=== PATIENT | male | born 1940 | race Caucasian/White ===

== ENCOUNTER 2024-02-16 12:09 | Outpatient (REF) | payer MEDICARE, SELFPAY ==
[2024-02-16 15:28] LABS: Occult Blood Negative
== END 2024-02-16 12:10 | disposition home or self-care (01) ==
LOC: LAB 12:09
PROVIDERS: PCP Nurse Practitioner Family; Visit Provider Nurse Practitioner Family
DX: R63.4 Abnormal weight loss (principal)
CPT/HCPCS: G0328

== ENCOUNTER 2024-02-17 07:45 | Outpatient (OUT) | payer MEDICARE, SELFPAY ==
[2024-02-17 08:38] LABS: Hematocrit 64.2 % (42.0-54.0); Hemoglobin 18.2 g/dL (14.0-18.0); Mean Corpuscular HGB Conc 28.3 g/dL (29.9-35.2); Mean Corpuscular Hemoglobin 22.3 pg (25.9-34.0); Mean Corpuscular Volume 78.8 fL (80.0-94.0); Mean Platelet Volume 9.9 fL (9.5-13.5); Red Blood Count 8.15 10^6/uL (4.70-6.10); Red Cell Distribution Width 24.7 % (11.0-15.0); White Blood Count 26.5 10^3/uL (4.0-11.0)
[2024-02-17 08:40] LABS: Estimated Average Glucose 100 mg/dL; Glycohemoglobin A1C 5.1 % (4.5-6.2)
[2024-02-17 08:53] LABS: Alanine Aminotransferase 25 U/L (16-63); Albumin Globulin Ratio 0.9; Albumin Level 3.6 g/dL (3.4-5.0); Alkaline Phosphatase 132 U/L (46-116); Anion Gap 13.6; Aspartate Amino Transferase 27 U/L (15-37); BUN Creatinine Ratio 17.3; Bilirubin Total 0.7 mg/dL (0.2-1.0); Calcium 10.1 mg/dL (8.5-10.1); Carbon Dioxide 28.7 mmol/L (21.0-32.0); Chloride 100 mmol/L (98-107); Chol HDL Ratio 2.9; Cholesterol 141 mg/dL (<=200); Estimated GFR (African America >60 (>=60); Estimated GFR (Non-African Ame 54 (>=60); Free T3 2.62 pg/mL (2.18-3.98); Globulin 3.9 g/dL; Glucose 91 mg/dL (74-106); HDL Cholesterol 49 mg/dL (40-60); Potassium 4.3 mmol/L (3.5-5.1); Sodium 138 mmol/L (136-145); Thyroid Stimulating Hormone 26.732 uIU/mL (0.358-3.740); Total Protein 7.5 g/dL (6.4-8.2); Triglycerides 75 mg/dL (<=150); Uric Acid 7.9 mg/dL (3.5-7.2)
[2024-02-17 09:12] LABS: Platelet Count 2085 10^3/uL (150-450)
[2024-02-17 09:45] LABS: Prostate Specific Antigen Scrn 4.62 ng/mL (<=4.00)
[2024-02-17 10:55] LABS: Lymphocytes Absolute Manual 1.06 10^3/uL (1.20-3.80); Monocytes Absolute Manual 2.38 10^3/uL (0.30-0.80); Segmented Neut Absolute Manual 22.52 10^3/uL (1.4-6.5)
[2024-02-17 10:56] LABS: Eosinophils Absolute Manual 0.53 10^3/uL (0.00-0.70)
[2024-02-17 11:04] LABS: Anisocytosis 2+; Giant Platelets 1+
[2024-02-18 04:12] LABS: PSA, Free 0.82 ng/mL; Prostate Specific Ag 3.9 ng/mL (0.0-4.0)
[2024-02-18 12:10] LABS: Insulin 3.2 uIU/mL (2.6-24.9)
== END 2024-02-17 07:46 | disposition home or self-care (01) ==
LOC: LAB 07:49
PROVIDERS: PCP Nurse Practitioner Family; Visit Provider Nurse Practitioner Family
DX: R63.4 Abnormal weight loss (principal); R97.20 Elevated prostate specific antigen [PSA]
CPT/HCPCS: 36415; 80053; 80061; 83036; 83525; 84153; 84154; 84436; 84443; 84481; 84550; 85007; 85027; G0103

== ENCOUNTER 2024-02-24 07:33 | Outpatient (RCR) | payer MEDICARE, SELFPAY ==
[2024-02-24 14:51] LABS: Hematocrit 59.1 % (42.0-54.0); Hemoglobin 17.1 g/dL (14.0-18.0); Mean Corpuscular HGB Conc 28.9 g/dL (29.9-35.2); Mean Corpuscular Hemoglobin 22.3 pg (25.9-34.0); Mean Corpuscular Volume 77.2 fL (80.0-94.0); Mean Platelet Volume 9.6 fL (9.5-13.5); Red Blood Count 7.66 10^6/uL (4.70-6.10); Red Cell Distribution Width 23.9 % (11.0-15.0); Reticulocyte Pct Auto 2.23 % (0.60-3.10); White Blood Count 23.7 10^3/uL (4.0-11.0)
[2024-02-24 14:55] LABS: Platelet Count 1961 10^3/uL (150-450)
[2024-02-24 15:04] LABS: Erythrocyte Sedimentation Rate 16 mm/hr (<=20)
[2024-02-24 15:15] VITALS: BP 180/89; PULSE 95; TEMP 37.4; O2SAT 95
[2024-02-24 15:16] LABS: Alanine Aminotransferase 17 U/L (16-63); Albumin Globulin Ratio 1.1; Albumin Level 3.4 g/dL (3.4-5.0); Alkaline Phosphatase 103 U/L (46-116); Aspartate Amino Transferase 22 U/L (15-37); BUN Creatinine Ratio 16.9; Bilirubin Total 0.5 mg/dL (0.2-1.0); C Reactive Protein <0.50 mg/dL (<=0.50); Calcium 9.5 mg/dL (8.5-10.1); Chloride 106 mmol/L (98-107); Estimated GFR (African America >60 (>=60); Estimated GFR (Non-African Ame 50 (>=60); Globulin 3.1 g/dL; Glucose 96 mg/dL (74-106); Lactate Dehydrogenase 558 U/L (85-227); Sodium 141 mmol/L (136-145); Total Protein 6.5 g/dL (6.4-8.2)
--- NOTE | 2024-02-24 15:17 | PC.NURSE ---
1510 Arrival ambulatory to chair 1 from examroom 2, presents from oncology/hematology office visit for therapeutic phlebotomy and IV hydration. 1520 procedure explained to patient, states he has many in the past. Goldie collection monitor calibrated. 1521 #16 gauge IV catheter inserted per Dorothy Tatum RN in rt forearm, excellent blood return obtained phlebotomy initiated. 1525 tolerating phlebotomy without any symptoms 1536 phlebotomy completed of 500 ml of blood, tolerated well. 1540 iv fluids of ns initiated as ordered via #16 iv site.
[2024-02-24 15:22] LABS: Percent Iron Saturation 7.7 %
[2024-02-24 15:28] LABS: Eosinophils Absolute Manual 0.47 10^3/uL (0.00-0.70); Lymphocytes Absolute Manual 0.94 10^3/uL (1.20-3.80); Monocytes Absolute Manual 0.94 10^3/uL (0.30-0.80); Segmented Neut Absolute Manual 21.33 10^3/uL (1.4-6.5)
[2024-02-24 15:29] LABS: Anisocytosis 2+; Giant Platelets 1+
[2024-02-24 15:39] VITALS: BP 172/89; PULSE 81; TEMP 37.4; O2SAT 95
[2024-02-24] MEDS: 0.9 % SODIUM CHLORIDE 500 ML IV (15:41)
[2024-02-25 16:10] LABS: Erythropoietin (EPO), Serum 1.7 mIU/mL (2.6-18.5)
[2024-02-26 05:08] LABS: HBsAg Screen Negative (Negative); Hep B Core Ab, Tot Negative (Negative); Hepatitis B Surf Ab Quant <3.1 mIU/mL (Immunity>9.9)
== END 2024-03-02 23:59 | disposition home or self-care (01) ==
LOC: INF 07:33
PROVIDERS: PCP Nurse Practitioner Family; Visit Provider Internal Medicine Hematology & Oncology
DX: R97.20 Elevated prostate specific antigen [PSA] (principal); D72.829 Elevated white blood cell count, unspecified; D75.839 Thrombocytosis, unspecified; D47.3 Essential (hemorrhagic) thrombocythemia; D45 Polycythemia vera; D50.9 Iron deficiency anemia, unspecified; K90.9 Intestinal malabsorption, unspecified
CPT/HCPCS: 36415; 80053; 82668; 82728; 83540; 83550; 83615; 85007; 85027; 85652; 86140; 86317; 86704; 87340; 96360; 99195

== ENCOUNTER 2024-03-23 07:40 | Outpatient (RCR) | payer MEDICARE, SELFPAY ==
[2024-03-09 13:51] VITALS: BP 146/77; PULSE 80; TEMP 36.5; O2SAT 92
--- NOTE | 2024-03-09 13:54 | PC.NURSE ---
1330 Arrival ambulatory to chair 1. Alert oriented. 1345 Here for oncology appt. #16 IV inserted rt forearm on 1 attempt, labs drawn as well as [employer] testing. IV saline locked awaiting appt with Dr. Santo and Therapeutic Phlebotomy.
[2024-03-09 14:29] LABS: Hematocrit 59.3 % (42.0-54.0); Hemoglobin 16.9 g/dL (14.0-18.0); Mean Corpuscular HGB Conc 28.5 g/dL (29.9-35.2); Mean Corpuscular Hemoglobin 22.1 pg (25.9-34.0); Mean Corpuscular Volume 77.4 fL (80.0-94.0); Red Blood Count 7.66 10^6/uL (4.70-6.10); Red Cell Distribution Width 23.6 % (11.0-15.0); White Blood Count 22.7 10^3/uL (4.0-11.0)
[2024-03-09 14:34] LABS: Platelet Count 2082 10^3/uL (150-450)
[2024-03-09 15:01] LABS: Band Neutrophils Absolute 0.2 10^3/uL (0.0-0.3); Eosinophils Absolute Manual 0.22 10^3/uL (0.00-0.70); Lymphocytes Absolute Manual 1.36 10^3/uL (1.20-3.80); Monocytes Absolute Manual 1.58 10^3/uL (0.30-0.80); Segmented Neut Absolute Manual 18.38 10^3/uL (1.4-6.5)
[2024-03-09 15:02] LABS: Nucleated Red Blood Cells 2
[2024-03-09 15:03] LABS: Poikilocytosis 1+; Tear Drop Cells 1+
--- NOTE | 2024-03-09 15:21 | PC.NURSE ---
1458 therapeutic phelbotomy initiated via IV site right forearm, only able to obtain approx 70 ml. dc iv site 1505initiated #16 left antecube, patient tolerated well. able to obtain 380 ml of blood total. over approx 15 mins. 1515 dc'd catheter cottonball and coban applied. tolerated well. supervisor volunteer services in to discuss financials with patient. Ambulates without difficulty post phlebotomy. post phlebotomy vital signs 160/72 T99.5 P 80 R 20.
== END 2024-04-02 23:59 | disposition home or self-care (01) ==
LOC: INF 07:40
PROVIDERS: PCP Nurse Practitioner Family; Visit Provider Internal Medicine Hematology & Oncology
DX: R97.20 Elevated prostate specific antigen [PSA] (principal); D72.829 Elevated white blood cell count, unspecified; D75.839 Thrombocytosis, unspecified; D47.3 Essential (hemorrhagic) thrombocythemia; D45 Polycythemia vera; D50.9 Iron deficiency anemia, unspecified; K90.9 Intestinal malabsorption, unspecified
CPT/HCPCS: 36415; 85007; 85027; 99195; G0463

== ENCOUNTER 2024-09-16 17:55 | Inpatient (IN) | payer MEDICARE, SELFPAY ==
[2024-09-16] VITALS (22 sets, daily range): BP systolic 125–174; BP diastolic 67–99; PULSE 82–95; TEMP 37.4; O2SAT 92–99; BMI 19.2
--- OUTSIDE RECORDS SUMMARY | 2024-09-16 18:07 | XMS_ITS | CCD ---
Author Organization [facility] Care Team Providers Care Document Restorer Name [employer], GENERIC Primary Care Physician Unavailab le Unavailable Primary Care Provider UnavailVINOD Luu Attending Unavailable VINOD QUINTEROS Attending Unavailable VINOD QUINTEROS Attending Unavailable Al-Marrawi, Orlando Yaser Attending Unavailabl e Al-Marrawi, Pamelad Yaser Attending Unavailabl e Al-Marrawi, Mhd Yaser Admitting Unavailabl e Al-Marrawi, Mhd Yaser Attending Unavailabl e Al-Marrawi, Pamelad Yaser Attending Unavailabl e Al-Marrawi, Mhd Yaser Admitting Unavailabl e Adamowicz, Ryan Consulting Unavailable Raiza Ta Attending Unavailable Sonya Dee Admitting Unavailable LoboiczDO Ryan Consulting Unavailabl jamaal Adamowicz, Ryan Consulting Unavailable Adamowicz, Ryan Consulting Unavailable Adamowicz, Ryan Consulting Unavailable Adamowicz, Ryan Consulting Unavailable Adamowicz, Ryan Consulting Unavailable Adamowicz, Ryan Consulting Unavailable Adamowicz, Ryan Consulting Unavailable Akkina, Manav Consulting Unavailable MD Helen Manav Consulting Unavailable Akkina, Manav Consulting Unavailable Akkina, Manav Consulting Unavailable Akkina, Manav Consulting Unavailable Akkina, Manav Consulting Unavailable Akkina, Manav Consulting Unavailable Akkina, Manav Consulting Unavailable Akkina, Manav Consulting Unavailable Blank, Brenard S Consulting Unavailable Blank, Bernard S Consulting Unavailable Blank, Bernard S Consulting Unavailable Blank, Bernard S Consulting Unavailable Blank, Bernard S Consulting Unavailable Blank, Bernard S Consulting Unavailable Blank, Bernard S Consulting Unavailable Blank, Bernard S Consulting Unavailable Blank, Bernard S Consulting Unavailable Blank, Bernard S Consulting Unavailable Arnold, Weiss Consulting Unavailable Arnold Weiss Consulting Unavailable Arnold Weiss Consulting Unavailable Arnold, Weiss Consulting Unavailable Arnold, Weiss Consulting Unavailable Arnold, Weiss Consulting Unavailable Arnold, Weiss Consulting Unavailable Arnold, Weiss Consulting Unavailable Arnold, Weiss Consulting Unavailable Arnold, Weiss Consulting Unavailable Orlando Pyle Attending UnavailOrlando Newman Attending UnavailFernando Marin Attending Unavaila ble NO FAMILY, PHYSICIAN Primary Care Provider MD Carmen Rogers Attending Provider Carmen Calloway Attending Unavailable Carmen Calloway Admitting Unavailable NO FAMILY, PHYSICIAN Primary Care Unavailable Medications Current Medications Medication Drug Class(es) Dates Sig (Normalized) Sig (Original) amoxicillin 875 mg / clavulanate 125 mg oral tablet (1 source) Penicillin-class Antibacterial Start: 10-03-2023 End: 10-17-2023 Augmentin 875 mg-125 mg Tab 1 tab(s), Oral, q12hr for 14 day(s), 28 tab(s), Refill(s) 0, [facility], 167, cm, 09/29/23 16:31:00 EST, Height/Length Dosing, 62, kg, 09/29/23 16:31:00 EST, Weight Dosing Start Date: 10/03/23 Stop Date: 10/17/23 Status: Ordered aspirin 81 mg delayed release oral tablet (8 sources) Platelet Aggregation Inhibitor, Nonsteroidal Anti-inflammatory Drug Start: 09-30-2023 take 1 tablet by mouth once daily aspirin 81 mg Oral EC Tab 81 mg = 1 tab(s), Oral, Daily, Refills(s) 0 Start Date: 09/30/23 Status: Ordered chlorthalidone 25 mg oral tablet (8 sources) Thiazide-like Diuretic Start: 10-03-2023 take 1 tablet by mouth once daily chlorthalidone 25 mg Tab 25 mg = 1 tab(s), Oral, Daily, # 30 tab(s), Refills(s) 0, Pharmacy: [facility], 167, cm, 09/29/23 16:31:00 EST, Height/Length Dosing, 62, kg, 09/29/23 16:31:00 EST, Weight Dosing Start Date: 10/03/23 Status: Ordered ferrous sulfate 325 mg oral tablet (8 sources) Start: 10-03-2023 take 1 tablet by mouth every other day ferrous sulfate 325 mg Tab 325 mg = 1 tab(s), Oral, Every other day, # 30 tab(s), Refills(s) 0, Pharmacy: [facility], 167, cm, 09/29/23 16:31:00 EST, Height/Length Dosing, 62, kg, 09/29/23 16:31:00 EST, Weight Dosing Start Date: 10/03/23 Status: Ordered hydroxyurea 500 mg oral capsule (7 sources) Antimetabolite Start: 10-20-2023 take 1 capsule by mouth once daily Hydrea 500 mg Cap 500 mg = 1 cap(s), Oral, Daily, # 30 cap(s), Refills(s) 5, Pharmacy: [facility], 170, cm, 10/20/23 14:28:00 EST, Height/Length Dosing, 62, kg, 09/29/23 16:31:00 EST, Weight Dosing Start Date: 10/20/23 Status: Ordered Multivitamin preparation (8 sources) Start: 09-30-2023 take 1 tablet by mouth once daily multivitamin 1 tab, Oral, Daily, Refill(s) 0 Start Date: 09/30/23 Status: Ordered NIFEdipine 60 mg oral tablet (8 sources) Dihydropyridine Calcium Channel Melissa Start: 10-03-2023 take 1 tablet by mouth once daily NIFEdipine 60 mg ER Tab 60 mg = 1 tab(s), Oral, Daily, # 30 tab(s), Refills(s) 0, Pharmacy: [facility], 167, cm, 09/29/23 16:31:00 EST, Height/Length Dosing, 62, kg, 09/29/23 16:31:00 EST, Weight Dosing Start Date: 10/03/23 Status: Ordered Problems Problem Classification Problem Date Documented Da te Episodic/Chronic Acute and unspecified renal failure (1 source) Acute renal failure syndrome; Translations: [Acute kidney failure, unspecified] Onset: 09-29-2023 Episodic Deficiency and other anemia (4 sources) Iron deficiency anemia; Translations: [Iron deficiency anemia, unspecified] Onset: 01-31-2024 Episodic Other circulatory disease (1 source) Elevated blood-pressure reading without diagnosis of hypertension; Translations: [Elevated blood-pressure reading, without diagnosis of hypertension] Onset: 09-29-2023 Episodic Other hematologic conditions (2 sources) Thrombocytosis; Translations: [Thrombocytosis, unspecified] Onset: 09-29-2023 Episodic Skin and subcutaneous tissue infections (2 sources) Abscess of left foot; Translations: [Cutaneous abscess of left foot] Onset: 09-29-2023 Episodic Results Test Name Value Interpretation Reference Range Facility [facility] 02-24-2024 L Specimen: Received: 02/25/24 Status: SOUT Req Num: [id number] Spec Type: Impression Subm Dr: Carmen Calloway MD Tissues: PATHPER Procedures: PATHREVIEW Age/ Patient Sex Location Account Attending Physician Vikas Grimaldo 83/M [facility] [id number] Carmen Calloway MD SPEC NUM: RECD: 02/25/24 [facility]: [id number] ALTON: 02/24/[address]: Carmen Calloway MD ENTERED: 02/25/[address]: Junito Beasley SPEC TYPE: Impression DEPT: JACOB Mcmahan ENTERED BY: [id number] RECV BY: [id number] ORDERED: PATHREVIEW ORDERED: PATHREVIEW Pathologist Review Abnormal CBC for peripheral blood smear review: -Mild leukocytosis with mild neutrophilia and at least rare precursor granulocytes without blast identified -Mild monocytosis -Mild lymphocytopenia -Mild erythrocytosis -Marked anisocytosis with mild microcytosis, mild hypochromia, and at least occasional ovalocytes and polychromatophils -At least occasional nucleated red blood cells -Severe thrombocytosis with few giant platelets Comment: -The overall markedly abnormal CBC findings with the severe thrombocytosis, mild erythrocytosis, and mild neutrophilia with a few giant platelets, and occasional nucleated RBC, in this elderly male patient, is highly suspicious for the underlying occurrence of chronic myeloid neoplasm (CMN), including essential thrombocythemia (ET), requiring co ntinuous laboratory correlations, including JAK2 molecular study that can also be done by testing with peripheral blood submitted to the [facility] laboratory, and the specialist consultation with extruding press adjuster for appropriate patient management are also advised CPT: 65956 Specimen: [id number] Received: 02/25/24 Status: ASHLEY Cook Num: [id number] Spec Type: Impression Subm Dr: Carmen Calloway MD Tissues: PATHPER Procedures: PATHREVIEW Patient: Vikas Grimaldo [id number] (Continued) Signed (signature on file) Daja Butler MD 02/27/241911 [facility] Consent for Procedure/Surger marc 12-05-2023 Consent for Procedure/Surgery [id number]# 1.00TIFF Normal [facility] Correction Recordson 12-05 Correction Records [id number] #1.00TIFF Normal [facility] Ambulatory Visit Summaryon 0 12-04-2023 Ambulatory Visit Summary VIKAS GRIMALDO :1940 Visit Date:12/04/2023 Ambulatory Visit Instructions Your Diagnosis CHENG (iron deficiency anemia) Your Care Team Attending Physician - Rupinder ANAYA, Fernando Ortiz Primary Care Physician - [facility], GENERIC This Is Your Medications List Contact prescribing physician if questions or concerns NIFEdipine (NIFEdipine 60 mg ER Tab) aspirin (aspirin 81 mg Oral EC Tab) chlorthalidone (chlorthalidone 25 mg Tab) ferrous sulfate (ferrous sulfate 325 mg Tab) hydroxyurea (Hydrea 500 mg Cap) multivitamin Discharge Vitals Heart Rate (Peripheral) 80 Respiratory Rate 18 Blood Pressure 124/76 Height 167 cm Height 66 in Weight 56 kg Weight 123.2 lb BMI 20.08 What to do next Scheduled Follow-Up Appointments Friday 2:00 PM EST With: Lashanda ANAYA, Orlando Caballero Where: [facility] Medications What How Much When Why Instructions Unchanged aspirin (aspirin 81 mg Oral EC Tab) 1 Tablets By Mouth Every day Contact prescribing physician if questions or concerns Unchanged chlorthalidone (chlorthalidone 25 mg Tab) 1 Tablets By Mouth Every day Contact prescribing physician if questions or concerns Unchanged ferrous sulfate (ferrous sulfate 325 mg Tab) 1 Tablets By Mouth Every other day Contact prescribing physician if questions or concerns Unchanged hydroxyurea (Hydrea 500 mg Cap) 1 Capsules By Mouth Every day Polycythemia vera Contact prescribing physician if questions or concerns Unchanged multivitamin 1 tab By Mouth Every day Contact prescribing physician if questions or concerns Unchanged NIFEdipine (NIFEdipine 60 mg ER Tab) 1 Tablets By Mouth Every day Contact prescribing physician if questions or concerns Medications and Immunizations Administered Not Given influenza virus vaccine, inactivated, Patient Refuses Allergies No Known Allergies Problems Ongoing - Any problem that you are currently receiving treatment for. CHENG (iron deficiency anemia) Patient Survey You may receive a survey via text or e-mail asking about your office visit. Please share your experience with us by completing your survey. We appreciate your feedback and thank you for choosing us for your care. Lily Mancilla [facility] Gastroenterology Office/Clin ic Noteon 12-04-2023 Gastroenterology Office/Clinic Note Chief Complaint CHENG HPI Staff Patient is an 83 year old male who presents today for a f/u from inpatient discharge 10/03/23 for CHENG. Chris previous EGD/Colonoscopy. Denies family hx of colon cancer. Thinks his father had prostate cancer. Youngest brother had testicular cancer. D/C note: This is an 82-year-old male with multiple comorbidities who was admitted of abscess of left foot, thrombocytosis, JOSELINE, hypertension. Was found to have iron deficiency anemia was given IV iron this along with antibiotics helped resolved his thrombocytosis. He will follow-up outpatient with oncology. Seen by podiatry and underwent incision and drainage. Wound cultures came back negative. Peripherally discussed the case with ID. Will send him on Augmentin 1 tab twice daily for 2 weeks. Regards to elevated blood pressures he was started on nifedipine and chlorthalidone. Was obtained showed good EF and good diastolic function no elevated pulmonary pressures. On day of discharge she was vitally hemodynamically and clinically stable. He was seen by PT who rec SNF. He was d/c to SNF. CT chest/abdomen/pelvis 09/30/23: IMPRESSION: BORDERLINE SPLENOMEGALY. TRACE PLEURAL EFFUSIONS AND ASCITES IN THE DEPENDENT RIGHT HEMIPELVIS. MODERATE PROBABLE POSTINFLAMMATORY/INF ECTIOUS SCARRING OF THE LOWER LOBES. FOLLOW-UP CHEST CT IN 2-3 MONTHS COULD BE CONSIDERED. OTHER CHRONIC FINDINGS, NOTED. Laboratory Results CBC CMP PT PTT Basophil Absolute: 0.2 E9/L (11/01/23) A/G Ratio: 1.5 (11/01/23) INR: 1.4 (09/29/23) PTT: 41.4 second(s) High (09/29/23) Basophil Auto: 1.3 % (11/01/23) AGAP: 19 mEq/L High (11/01/23) PT: 15.4 second(s) High (09/29/23) Eos Absolute: 0.2 E9/L (11/01/23) Albumin Lvl: 4.4 gm/dL (11/01/23) Eos Auto: 1 % (11/01/23) Alk Phos: 100 Int._Unit/L High (11/01/23) Hct: 56.1 % High (11/01/23) ALT: 34 Int._Unit/L (11/01/23) HGB: 17.3 gm/dL (11/01/23) AST: 43 Int._Unit/L (11/01/23) Lymph Absolute: 0.7 E9/L Low (11/01/23) Bili Total: 0.6 mg/dL (11/01/23) Lymph Auto: 3.4 % Low (11/01/23) BUN: 47 mg/dL High (11/01/23) MCH: 21.7 pg Low (11/01/23) BUN/Creat Ratio: 31 High (11/01/23) MCHC: 30.9 gm/dL Low (11/01/23) Calcium Lvl: 9.8 mg/dL (11/01/23) MCV: 70.3 fL Low (11/01/23) Chloride: 96 mmol/L Low (11/01/23) Knox Absolute: 1.6 E9/L High (11/01/23) CO2: 23 mmol/L (11/01/23) Knox Auto: 8.2 % (11/01/23) Creatinine: 1.5 mg/dL High (11/01/23) MPV: 9.1 fL (11/01/23) Globulin: 2.9 gm/dL (11/01/23) Neutro Absolute: 16.7 E9/L High (11/01/23) Glucose Lvl: 65 mg/dL (11/01/23) Neutro Auto: 86.1 % High (11/01/23) Potassium Lvl: 5.8 mmol/L High (11/01/23) Platelet: 757 E9/L High (11/01/23) Sodium Lvl: 132 mmol/L Low (11/01/23) RBC: 8 E12/L High (11/01/23) Total Protein: 7.3 gm/dL (11/01/23) RDW: 29.1 % High (11/01/23) WBC: 19.4 E9/L High (11/01/23) Liver Studies Ferritin Lvl: 21 ng/mL Low (11/01/23) Ferritin Lvl: 73 ng/mL (10/17/23) Ferritin Lvl: 106 ng/mL (09/29/23) Iron: 23 mcg/dL Low (11/01/23) Iron: 36 mcg/dL (10/17/23) Iron: 25 mcg/dL Low (09/29/23) TIBC: 396 mcg/dL (11/01/23) TIBC: 393 mcg/dL (10/17/23) TIBC: 339 mcg/dL (09/30/23) Transferrin: 283 mg/dL (11/01/23) Transferrin: 281 mg/dL (10/17/23) Transferrin: 242 mg/dL (09/30/23) History of Present Illness Denies any signs of bleeding, was admitted to the hospital with foot infection he had some leukocytosis and thrombocytosis, has Kale 2 mutation, currently not on blood thinners except for aspirin Review of Systems PHQ Score Initial Depression Screen Score: 0 SCORE Physical Exam Vitals & Measurements HR: 80(Peripheral) RR: 18 BP: 124/76 HT: 66 in HT: 167 cm WT: 56 kg WT: 123.2 lb BMI: 20.08 Assessment/Plan 1. CHENG (iron deficiency anemia) (D50.9: Iron deficiency anemia, unspecified) He has very mild iron deficiency without anemia Has Kale 2 mutation, thrombocytosis He never had EGD or colonoscopy in the past, we discussed that we can do EGD and colonoscopy given that iron deficiency Is supposed to take oral iron currently, is not compliant with it, we can check his blood levels in few months Follow-up No qualifying data available Problem List/Past Medical History Ongoing CHENG (iron deficiency anemia) Historical No qualifying data Medications aspirin 81 mg Oral EC Tab, 81 mg= 1 tab(s), Oral, Daily chlorthalidone 25 mg Tab, 25 mg= 1 tab(s), Oral, Daily ferrous sulfate 325 mg Tab, 325 mg= 1 tab(s), Oral, Every other day Hydrea 500 mg Cap, 500 mg= 1 cap(s), Oral, Daily, 5 refills multivitamin, 1 tab, Oral, Daily NIFEdipine 60 mg ER Tab, 60 mg= 1 tab(s), Oral, Daily Allergies No Known Allergies Social History Alcohol Current, Beer, 1-2 times per year, 09/29/2023 Current, 11/12/2018 Substance Abuse Current, 09/29/2023 Current, 11/12/2018 Tobacco Former smoker, quit more than 30 days ago Tobacco Use:. Never Smokeless Tobacco Use:. Cigarettes, Yes, 12/04/2023 Never (less th (more content not included)... Normal [facility] Comment on above: Result Comment: Elec tronically Signed By: Rupinder ANAYA, eFrnando Ortiz\.br\Date and Time Signed: 12/04/23 13:01 EST Consent for Treatmenton Consent for Treatment [id number] #1.00TIFF Normal [facility] ONC - Otheron 11-04-2023 ONC - Other [id number] #1.00TIFF Normal [facility] Physician Orderon 11-04-2023 Physician Order [id number] #1.00TIFF Normal [facility] Auto Diffon 11-01-2023 Basophils/100 WBC (Bld) 1.3 % Normal 0.0-2.0 [facility] Comment on above: Order Comment: Order Added by Discern Expert. Performed By: #### 2 [id number], [id number], [id number], [id number] #### [facility] [address] [place] [address] Basophils/Leukocytes Auto (Bld) [Pure # fraction] 0.2 E9/L Normal 0.0-0.2 [facility] Comment on above: Order Comment: Order Added by Discern Expert. Performed By: #### 2 931990, [id number], 3088592, [id number] #### [facility] [address] [place] [address] Eosinophils/100 WBC (Bld) 1.0 % Normal 0.0-8.0 [facility] Comment on above: Order Comment: Order Added by Discern Expert. Performed By: #### 2 102501, 3700164, 0553012, [id number] #### [facility] [address] [place] [address] Eosinophils/Leukocytes Auto (Bld) [Pure # fraction] 0.2 E9/L Normal 0.0-0.5 [facility] Comment on above: Order Comment: Order Added by Discern Expert. Performed By: #### 2 632753, 8736872, 1017923, [id number] #### [facility] [address] [place] [address] Lymphocytes/100 WBC (Bld) 3.4 % Low 14.0-50.0 [facility] Comment on above: Order Comment: Order Added by Discern Expert. Performed By: #### 2 472545, 8120696, 9059886, [id number] #### [facility] [address] [place] [address] Lymphocytes/Leukocytes Auto (Bld) [Pure # fraction] 0.7 E9/L Low 1.0-4.0 [facility] Comment on above: Order Comment: Order Added by Discern Expert. Performed By: #### 2 806870, 5777371, 7626017, [id number] #### [facility] [address] [place] [address] Monocytes/100 WBC (Bld) 8.2 % Normal 4.0-14.0 [facility] Comment on above: Order Comment: Order Added by Discern Expert. Performed By: #### 2 696757, 6895051, 7371462, [id number] #### [facility] [address] [place] [address] Monocytes/Leukocytes Auto (Bld) [Pure # fraction] 1.6 E9/L High 0.2-1.0 [facility] Comment on above: Order Comment: Order Added by Discern Expert. Performed By: #### 2 964975, 8113900, 0634668, [id number] #### [facility] [address] [place] [address] Neutrophils/100 WBC (Bld) 86.1 % High 36.0-75.0 [facility] Comment on above: Order Comment: Order Added by Discern Expert. Performed By: #### 2 271385, 3750795, 5084955, [id number] #### [facility] [address] [place] [address] Neutrophils/Leukocytes Auto (Bld) [Pure # fraction] 16.7 E9/L High 2.0-7.5 [facility] Comment on above: Order Comment: Order Added by Discern Expert. Performed By: #### 2 959858, 6798035, 1907774, [id number] #### [facility] [address] [place] [address] CBC w/ Auto Diffon Erythrocyte distribution width (RBC) [Ratio] 29.1 % High 10.9-14.2 [facility] Comment on above: Performed By: #### 2 178572, 1023029, 5003999, [id number] #### [facility] [address] [place] [address] Hematocrit (Bld) [Volume fraction] 56.1 % High 37.7-49.0 [facility] Comment on above: Performed By: #### 2 414964, 6525969, 1068319, [id number] #### [facility] [address] [place] [address] Hemoglobin (Bld) [Mass/Vol] 17.3 g/dL Normal 13.5-17.5 [facility] Comment on above: Performed By: #### 2 947702, 4458075, 9978733, [id number] #### [facility] [address] [place] [address] MCH (RBC) [Entitic mass] 21.7 pg Low 27.0-34.0 [facility] Comment on above: Performed By: #### 2 197591, 2206648, 0164645, [id number] #### [facility] [address] [place] [address] MCHC (RBC) [Mass/Vol] 30.9 g/dL Low 31.4-36.0 [facility] Comment on above: Performed By: #### 2 943908, 6532393, 9387412, [id number] #### [facility] [address] [place], [place] [address] MCV (RBC) [Entitic vol] 70.3 fL Low 80.0-100.0 [facility] Comment on above: Performed By: #### 2 296445, 4758409, 5060493, [id number] #### [facility] [address] [place] [address] Platelet mean volume (Bld) [Entitic vol] 9.1 fL Normal 6.4-10.8 [facility] Comment on above: Performed By: #### 2 211853, 8863304, 8436734, [id number] #### [facility] [address] [place] [address] Platelets (Bld) [#/Vol] 757.0 E9/L High 150.0-500.0 [facility] Comment on above: Performed By: #### 2 329064, 2465042, 8354382, [id number] #### [facility] [address] [place], [place] [id number] RBC (Bld) [#/Vol] 8.0 E12/L High 4.3-5.9 [facility] Comment on above: Performed By: #### 2 692662, 1796574, 7194597, [id number] #### [facility] [address] [place], [place] [address] WBC corrected for nucl RBC Auto (Bld) [#/Vol] 19.4 E9/L High 4.0-11.0 [facility] Comment on above: Performed By: #### 2 064912, 1910858, 6658269, [id number] #### [facility] [address] [place] [address] CHEMISTRYOrdered By: SYSTEM SYSTEM on 11-01-2023 Ferritin Lvl 21 ng/mL Low 24 - 336 ng/mL Remisol Chem Iron [Mass/Vol] 23 ug/dL Low 35 - 153 mcg/dL Remisol Chem Iron Sat 6 % Low 20 - 50 % Remisol Chem TIBC 396 ug/dL Normal 250 - 400 mcg/dL Remisol Chem Transferrin [Mass/Vol] 283 mg/dL Normal 200 - 370 mg/dL Remisol Chem Albumin [Mass/Vol] 4.4 g/dL Normal 3.3 - 5.0 gm/dL Remisol Chem Albumin/Globulin [Mass ratio] 1.5 {ratio} Normal 1.1 - 2.2 Rem[facility] Alk Phos 100 [iU]/d High 21 - 98 Int._Unit/L Remisol Chem ALT 34 [iU]/d Normal 6 - 46 Int._Unit/L Remisol Chem Anion gap [Moles/Vol] 19 mmol/L High 6 - 16 mEq/L R emisol Chem AST 43 [iU]/d Normal 5 - 43 Int._Unit/L Rem[facility] Chem Bili Total 0.6 mg/dL Normal 0.0 - 1.1 mg/dL [facility] Calcium [Mass/Vol] 9.8 mg/dL Normal 8.9 - 11. 1 mg/dL [facility] Chloride [Moles/Vol] 96 mmol/L Low 101 - 1 11 mmol/L Rem[facility] Chem CO2 [Moles/Vol] 23 mmol/L Normal 21 - 31 mmol/L [facility] Creatinine [Mass/Vol] 1.5 mg/dL High 0.5 - 1.3 mg/dL Rem[facility] Chem eGFR 46 mL/min/1.73 m2 Low >=59mL/min /1 .73 m2 Remisol Chem Globulin (S) [Mass/Vol] 2.9 g/dL Normal 1.4 - 4.0 gm/dL [facility] Glucose [Mass/Vol] 65 mg/dL Normal 55 - 199 mg/dL Rem[facility] Chem Potassium [Moles/Vol] 5.8 mmol/L High 3.5 - 5.3 mmol/L Rem[facility] Chem Protein [Mass/Vol] 7.3 g/dL Normal 6.0 - 7.8 gm/dL [facility] Chem Sodium [Moles/Vol] 132 mmol/L Low 135 - 145 mmol/L Rem[facility] Chem Urea nitrogen [Mass/Vol] 47 mg/dL High 5 - 21 mg/d L Remisol Chem Urea nitrogen/Creatinine [Mass ratio] 31 mg/mg High 10 - 20 Remisol Chem CMPon 11-01-2023 Albumin [Mass/Vol] 4.4 g/dL Normal 3.3-5.0 [facility] Comment on above: Performed By: #### 2 246958, 4754669, 1838014, [id number] #### [facility] [address] [place] [address] Albumin/Globulin [Mass ratio] 1.5 {ratio} Normal 1.1-2.2 [facility] Comment on above: Performed By: #### 2 894716, 9444967, 5587419, [id number] #### [facility] [address] [place] [address] Alk Phos 100 Int._Unit/L High 21-98 [facility] Comment on above: Performed By: #### 2 302442, 7782593, 0641035, [id number] #### [facility] Laboratory [address] [place] [address] ALT 34 Int._Unit/L Normal 6-46 [facility] Comment on above: Performed By: #### 2 941719, 1042563, 4027861, [id number] #### [facility] Laboratory [address] [place] [address] Anion gap [Moles/Vol] 19 mmol/L High 6-16 [facility] Comment on above: Performed By: #### 2 424859, 5297539, 6321608, [id number] #### [facility] Laboratory [address] [place] [address] AST 43 Int._Unit/L Normal 5-43 [facility] Comment on above: Performed By: #### 2 236797, 1509462, 5358096, 38261000 #### [facility] Laboratory [address] [place] [address] Bili Total 0.6 mg/dL Normal 0.0-1.1 [facility] Comment on above: Performed By: #### 2 296728, 4062085, 1474249, 20678778 #### [facility] Laboratory [address] [place] [address] BUN/Creat Ratio 31 No Units High 10-20 [facility] Comment on above: Performed By: #### 2 147351, 1153201, 0714369, [id number] #### [facility] Laboratory [address] [place] [address] Calcium [Mass/Vol] 9.8 mg/dL Normal 8.9-11.1 [facility] Comment on above: Performed By: #### 2 957201, 4108281, 4705781, 93333461 #### [facility] Laboratory [address] [place] [address] Chloride [Moles/Vol] 96 mmol/L Low 101-111 [facility] Comment on above: Performed By: #### 2 861885, 5379356, 3144596, 26689601 #### [facility] Laboratory [address] [place] [address] CO2 [Moles/Vol] 23 mmol/L Normal 21-31 [facility] Comment on above: Performed By: #### 2 325190, 4229922, 7051009, 85657896 #### [facility] Laboratory [address] [place] [address] Creatinine [Mass/Vol] 1.5 mg/dL High 0.5-1.3 [facility] Comment on above: Performed By: #### 2 834518, 0271468, 4234451, 81596628 #### [facility] Laboratory [address] [place] [address] Globulin (S) [Mass/Vol] 2.9 g/dL Normal 1.4-4.0 [facility] Comment on above: Performed By: #### 2 944964, 5478009, 6719519, 23151443 #### [facility] Laboratory [address] [place] [address] Glucose [Mass/Vol] 65 mg/dL Normal 55-199 [facility] Comment on above: Performed By: #### 2 872421, 2485020, 6743786, 46194685 #### [facility] Laboratory [address] [place] [address] Potassium [Moles/Vol] 5.8 mmol/L High 3.5-5.3 [facility] Comment on above: Performed By: #### 2 943067, 3326323, 2723996, 13006858 #### [facility] Laboratory [address] [place] [address] Protein [Mass/Vol] 7.3 g/dL Normal 6.0-7.8 [facility] Comment on above: Performed By: #### 2 406781, 6636090, 9986237, 03089609 #### [facility] Laboratory [address] [place] [address] Sodium [Moles/Vol] 132 mmol/L Low 135-145 [facility] Comment on above: Performed By: #### 2 958514, 8463729, 0488304, 95227233 #### [facility] Laboratory [address] [place] [address] Urea nitrogen [Mass/Vol] 47 mg/dL High 5-21 [facility] Comment on above: Performed By: #### 2 825944, 6289856, 3499298, 84131046 #### [facility] Laboratory [address] [place] [address] Consent for Treatmenton 10-05 Consent for Treatment [id number] #1.00TIFF Normal [facility] Ferritinon 11-01-2023 Ferritin Lvl 21 ng/mL Low 24-336 [facility] Comment on above: Performed By: #### 2 531720, 8155953, 1885289, 67652309 #### [facility] Laboratory [address] [place] [address] HEMATOLOGYOrdered By: SYSTEM SYSTEM on 11-01-2023 Basophils/100 WBC (Bld) 1.3 % Normal 0.0 - 2.0 % [facility] Basophils/Leukocytes Auto (Bld) [Pure # fraction] 0.2 E9/L Normal 0.0 - 0.2 E9/L [facility] Eosinophils/100 WBC (Bld) 1.0 % Normal 0.0 - 8.0 % [facility] Eosinophils/Leukocytes Auto (Bld) [Pure # fraction] 0.2 E9/L Normal 0.0 - 0.5 E9/L [facility] Lymphocytes/100 WBC (Bld) 3.4 % Low 14.0 - 50.0 % [facility] Lymphocytes/Leukocytes Auto (Bld) [Pure # fraction] 0.7 E9/L Low 1.0 - 4.0 E9/L [facility] Monocytes/100 WBC (Bld) 8.2 % Normal 4.0 - 14.0 % [facility] Monocytes/Leukocytes Auto (Bld) [Pure # fraction] 1.6 E9/L High 0.2 - 1.0 E9/L [facility] Neutrophils/100 WBC (Bld) 86.1 % High 36.0 - 75.0 % [facility] Neutrophils/Leukocytes Auto (Bld) [Pure # fraction] 16.7 E9/L High 2.0 - 7.5 E9/L [facility] HEMATOLOGYOrdered By: Agatha Kim on 11-01-2023 Erythrocyte distribution width (RBC) [Ratio] 29.1 % High 10.9 - 14.2 % [facility] Hematocrit (Bld) [Volume fraction] 56.1 % High 37.7 - 49.0 % [facility] Hemoglobin (Bld) [Mass/Vol] 17.3 g/dL Normal 13.5 - 17.5 gm/dL [facility] MCH (RBC) [Entitic mass] 21.7 pg Low 27. 0 - 34.0 pg [facility] MCHC (RBC) [Mass/Vol] 30.9 g/dL Low 31.4 - 36.0 gm/dL [facility] MCV (RBC) [Entitic vol] 70.3 fL Low 80.0 - 100.0 fL [facility] Platelet mean volume (Bld) [Entitic vol] 9.1 fL Normal 6.4 - 10.8 fL [facility] Platelets (Bld) [#/Vol] 757.0 E9/L High 150. 0 - 500.0 E9/L [facility] RBC (Bld) [#/Vol] 8.0 E12/L High 4.3 - 5.9 E12/L [facility] WBC corrected for nucl RBC Auto (Bld) [#/Vol] 19.4 E9/L High 4.0 - 11.0 E9/L [facility] Ironon 11-01-2023 Iron 23 microgram/dL Low 35-153 [facility] Comment on above: Performed By: #### 2 939979, 6121108, 6296363, 22438089 #### [facility] Laboratory [address] [place] [address] Iron Saturationon 11-01-2023 Iron Sat 6 % Low 20-50 [facility] Comment on above: Performed By: #### 2 394413, 0111429, 8535257, 30536808 #### [facility] Laboratory [address] [place] [address] TIBC 396 microgram/dL Normal 250-400 [facility] Comment on above: Performed By: #### 2 283356, 4256563, 3616289, 61111684 #### [facility] Laboratory [address] [place] [address] Transferrinon 11-01-2023 Transferrin [Mass/Vol] 283 mg/dL Normal 200-370 [facility] Comment on above: Performed By: #### 2 988886, 5464975, 0444382, 25574647 #### [facility] Laboratory [address] [place] [address] eGFRon 11-01-2023 eGFR 46 mL/min/1.73 m2 Low >=59 [facility] Comment on above: Order Comment: Order added by Discern Expert. Performed By: #### 2 355673, 5891635, 5507474, 61399877 #### [facility] Laboratory [address] [place] [address] Physician Orderon 10-29-2023 Physician Order [id number] 7#1.00TIFF [facility] Physician Order [id number] 9#1.00TIFF [facility] Physician Order [id number] #1.00TIFF [facility] Comment on above: Other Comment: no di agnosis Physician Order [id number] 3#1.00TIFF [facility] Comment on above: Other Comment: no di agnosis Consent for Treatmenton 10-04 Consent for Treatment [id number] #1.00TIFF [facility] Interdisciplinary Note - Soc ial Workeron 10-22-2023 Interdisciplinary Note - Workforce Planner This SW was notified that during patient's recent oncology appointment, he had made some comments that were a little off the wall and it was felt that if he were to d/c from [facility] he would be at risk. This SW reached out to the SWKim at [facility] today to discuss patient's discharge plans. Unfortunately, Kim was not available at the time so a message was left requesting that she reach out to this SW to discuss. SW will remain available. This SW received a return call from YONI Alvarez at [facility] regarding patient. She states that patient tends to be very apprehensive about medications as he has never taken any prior to this and therefore he reads all of the labels about side effects and everything. She states that their staff has met with him and provided education, which they are hoping will prove to be beneficial for patient. Patient will discharge home tomorrow as he requested to only be at [facility] for 20 days. He will be attending OP therapy. No further needs were identified by Kim at this time. [facility] Consenton 10-21-2023 Consent [id number] 8#1.00TIFF [facility] Consent for Treatmenton 10-03 Consent for Treatment [id number] #1.00TIFF Normal [facility] Physician Orderon 10-21-2023 Physician Order [id number] 4#1.00TIFF Normal [facility] Auto Diffon 10-20-2023 Basophils/100 WBC (Bld) 0.9 % Normal 0.0-2.0 [facility] Comment on above: Order Comment: Order added by Discern Expert. Performed By: #### 2 232838, 8146689, 8290608, 37044972 #### [facility] Laboratory [address] [place] [address] Basophils/Leukocytes Auto (Bld) [Pure # fraction] 0.2 E9/L Normal 0.0-0.2 [facility] Comment on above: Order Comment: Order added by Discern Expert. Performed By: #### 2 764023, 6448180, 7358791, 81406647 #### [facility] Laboratory [address] [place] [address] Eosinophils/100 WBC (Bld) 2.1 % Normal 0.0-8.0 [facility] Comment on above: Order Comment: Order added by Discern Expert. Performed By: #### 2 507022, 2656058, 1973010, 36953862 #### [facility] Laboratory [address] [place] [address] Eosinophils/Leukocytes Auto (Bld) [Pure # fraction] 0.5 E9/L Normal 0.0-0.5 [facility] Comment on above: Order Comment: Order added by Discern Expert. Performed By: #### 2 818171, 1618257, 4722040, 15626018 #### [facility] Laboratory [address] [place] [address] Lymphocytes/100 WBC (Bld) 3.7 % Low 14.0-50.0 [facility] Comment on above: Order Comment: Order added by Discern Expert. Performed By: #### 2 329436, 7490419, 9779676, 72849055 #### [facility] Laboratory [address] [place] [address] Lymphocytes/Leukocytes Auto (Bld) [Pure # fraction] 0.9 E9/L Low 1.0-4.0 [facility] Comment on above: Order Comment: Order added by Discern Expert. Performed By: #### 2 315888, 7046802, 3787744, 57680703 #### [facility] Laboratory [address] [place] [address] Monocytes/100 WBC (Bld) 12.2 % Normal 4.0-14.0 [facility] Comment on above: Order Comment: Order added by Discern Expert. Performed By: #### 2 236925, 2000028, 3241082, 27134466 #### [facility] Laboratory [address] [place] [address] Monocytes/Leukocytes Auto (Bld) [Pure # fraction] 2.9 E9/L High 0.2-1.0 [facility] Comment on above: Order Comment: Order added by Discern Expert. Performed By: #### 2 684758, 2037031, 4155190, 08445498 #### [facility] Laboratory [address] [place] [address] Neutrophils/100 WBC (Bld) 81.1 % High 36.0-75.0 [facility] Comment on above: Order Comment: Order added by Discern Expert. Performed By: #### 2 716484, 0577818, 4123966, 24343900 #### [facility] Laboratory [address] [place] [address] Neutrophils/Leukocytes Auto (Bld) [Pure # fraction] 19.1 E9/L High 2.0-7.5 [facility] Comment on above: Order Comment: Order added by Discern Expert. Performed By: #### 2 169028, 6970264, 3828638, 72865896 #### [facility] Laboratory [address] [place] [address] CBC w/ Auto Diffon 3 Erythrocyte distribution width (RBC) [Ratio] 28.8 % High 10.9-14.2 [facility] Comment on above: Performed By: #### 2 449381, 5038914, 1876355, 36403910 #### [facility] Laboratory [address] [place] [address] Hematocrit (Bld) [Volume fraction] 52.9 % High 37.7-49.0 [facility] Comment on above: Performed By: #### 2 945222, 4170651, 2034422, 66847596 #### [facility] Laboratory [address] [place] [address] Hemoglobin (Bld) [Mass/Vol] 16.4 g/dL Normal 13.5-17.5 [facility] Comment on above: Performed By: #### 2 738379, 3667241, 6581079, 33893873 #### [facility] Laboratory [address] [place] [address] MCH (RBC) [Entitic mass] 21.1 pg Low 27.0-34.0 [facility] Comment on above: Performed By: #### 2 416081, 8402547, 4546752, 16895572 #### [facility] Laboratory [address] [place] [address] MCHC (RBC) [Mass/Vol] 30.9 g/dL Low 31.4-36.0 [facility] Comment on above: Performed By: #### 2 677311, 5838942, 5032855, 59112592 #### [facility] Laboratory [address] [place] [address] MCV (RBC) [Entitic vol] 68.2 fL Low 80.0-100.0 [facility] Comment on above: Performed By: #### 2 559940, 5154338, 4636619, 70277335 #### [facility] Laboratory [address] [place] [address] Platelet mean volume (Bld) [Entitic vol] 8.0 fL Normal 6.4-10.8 [facility] Comment on above: Performed By: #### 2 786674, 2677398, 1816052, 32837013 #### [facility] Laboratory [address] [place] [address] Platelets (Bld) [#/Vol] 744.0 E9/L High 150.0-500.0 [facility] Comment on above: Performed By: #### 2 048265, 2894589, 1571638, 19790456 #### [facility] Laboratory [address] [place] [address] RBC (Bld) [#/Vol] 7.8 E12/L High 4.3-5.9 [facility] Comment on above: Performed By: #### 2 419345, 2720653, 0511156, 90252013 #### [facility] Laboratory [address] [place] [address] WBC corrected for nucl RBC Auto (Bld) [#/Vol] 23.6 E9/L High 4.0-11.0 [facility] Comment on above: Performed By: #### 2 616751, 8445471, 5070025, 49015908 #### [facility] Laboratory [address] [place] [address] Consent for Treatmenton 10-03 Consent for Treatment [id number] #1.00TIFF Normal [facility] HEMATOLOGYOrdered By: Ada Mahoney on 10-20-2023 Anisocytosis Ql (Bld) Present (10/20/23 3:29 PM) Normal [facility] Erythrocyte distribution width (RBC) [Ratio] 28.8 % High 10.9 - 14.2 % [facility] Hematocrit (Bld) [Volume fraction] 52.9 % High 37.7 - 49.0 % [facility] Hemoglobin (Bld) [Mass/Vol] 16.4 g/dL Normal 13.5 - 17.5 gm/dL [facility] Hypochromia Auto Ql (Bld) Present (10/20/23 3:29 PM) Normal [facility] MCH (RBC) [Entitic mass] 21.1 pg Low 27. 0 - 34.0 pg [facility] MCHC (RBC) [Mass/Vol] 30.9 g/dL Low 31.4 - 36.0 gm/dL [facility] MCV (RBC) [Entitic vol] 68.2 fL Low 80.0 - 100.0 fL [facility] Microcytes Ql (Bld) Present (10/20/23 3:29 PM) Normal [facility] Morphology Panfilo (Bld) [Interp] See Morphology 1 (10/20/23 3:29 PM) Normal [facility] Comment on above: Result Comment: Resu lts are consistent with previous path review performed on 09-30-23. Reviewed by ELMER. Ovalocytes LM Ql (Bld) Present (10/20/23 3:29 PM) Normal [facility] Platelet mean volume (Bld) [Entitic vol] 8.0 fL Normal 6.4 - 10.8 fL [facility] Platelets (Bld) [#/Vol] 744.0 E9/L High 150. 0 - 500.0 E9/L [facility] Platelets Large LM Ql (Bld) Present (10/20/23 3:29 PM) Normal [facility] RBC (Bld) [#/Vol] 7.8 E12/L High 4.3 - 5.9 E12/L [facility] WBC corrected for nucl RBC Auto (Bld) [#/Vol] 23.6 E9/L High 4.0 - 11.0 E9/L [facility] HEMATOLOGYOrdered By: SYSTEM SYSTEM on 10-20-2023 Basophils/100 WBC (Bld) 0.9 % Normal 0.0 - 2.0 % [facility] Basophils/Leukocytes Auto (Bld) [Pure # fraction] 0.2 E9/L Normal 0.0 - 0.2 E9/L [facility] Eosinophils/100 WBC (Bld) 2.1 % Normal 0.0 - 8.0 % [facility] Eosinophils/Leukocytes Auto (Bld) [Pure # fraction] 0.5 E9/L Normal 0.0 - 0.5 E9/L [facility] Lymphocytes/100 WBC (Bld) 3.7 % Low 14.0 - 50.0 % [facility] Lymphocytes/Leukocytes Auto (Bld) [Pure # fraction] 0.9 E9/L Low 1.0 - 4.0 E9/L [facility] Monocytes/100 WBC (Bld) 12.2 % Normal 4.0 - 14.0 % [facility] Monocytes/Leukocytes Auto (Bld) [Pure # fraction] 2.9 E9/L High 0.2 - 1.0 E9/L [facility] Neutrophils/100 WBC (Bld) 81.1 % High 36.0 - 75.0 % [facility] Neutrophils/Leukocytes Auto (Bld) [Pure # fraction] 19.1 E9/L High 2.0 - 7.5 E9/L [facility] Insurance Correspondenceon 1 12-21-2022 Insurance Correspondence [id number] #1.00TIFF Normal [facility] Morphon 10-20-2023 Anisocytosis Ql (Bld) Present Normal [facility] Comment on above: Order Comment: Order added by Discern Expert. Performed By: #### 2 450625, 7695070, 3107958, 27938702 #### [facility] Laboratory [address] [place] [address] Hypochromia Auto Ql (Bld) Present Normal [facility] Comment on above: Order Comment: Order added by Discern Expert. Performed By: #### 2 116060, 7248350, 5435202, 41105754 #### [facility] Laboratory [address] [place] [address] Microcytes Ql (Bld) Present Normal [facility] Comment on above: Order Comment: Order added by Discern Expert. Performed By: #### 2 003510, 8702315, 6870310, 31775072 #### [facility] Laboratory [address] [place] [address] Morphology Panfilo (Bld) [Interp] See Morphology Normal [facility] Comment on above: Order Comment: Order added by Discern Expert. Result Comment: Resu lts are consistent with previous path review performed on 09-30-23. Reviewed by ELMER. Performed By: #### 2 977055, 8080947, 5606251, [id number] #### [facility] Laboratory [address] [facility] [place] [address] Ovalocytes LM Ql (Bld) Present Normal [facility] Comment on above: Order Comment: Order added by Discern Expert. Performed By: #### 2 260925, 8307925, 4992752, [id number] #### [facility] Laboratory [address] [facility] [place] [address] Platelets Large LM Ql (Bld) Present Normal [facility] Comment on above: Order Comment: Order added by Discern Expert. 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 Pyle and patient's son into scheduled office visit. Current Patient Status/Reason: reviewed lab results and explained diagnoses of polycythemia vera, thrombocytosis, and iron deficiency. Treatment Plan: start Hydrea PO 500 mg daily order Venofer x 3 doses Therapeutic phlebotomy for Hct greater than or equal to 45 every 2 weeks Follow-Up Appointment Info/Referrals: Outpatient labs every 2 weeks F/U with in 8 weeks with iron studies prior Resources Offered: Reviewed treatment plan and frequency of labs with patient and his son. Patient denied further questions. Normal [facility] Comment on above: Result Comment: Elec tronically Signed By: Wendy VINES, Samreen Botello\.sandra\Date and Time Signed: 10/20/23 15:58 EST Oncology Progress Noteon Oncology Progress Note Patient: VIKAS GRIMALDO Age: 82 years Sex: Male : 1940 Associated Diagnoses: None Author: Lashanda ANAYA, Orlando Caballero Chief Complaint 1. 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 3. Leukocytosis: infection plus minus JAK2 mutation related. History of Present Illness 82-year-old male who was sent to [facility] ER by Dr. Quinteros with concerns regarding a left foot infection concerning for a left foot abscess. His symptoms started 7-01 days ago. 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 He stated he did not have any foot pain or problems until just the past couple weeks. Has been able to ambulate on that foot. Denies drainage from it. No fevers. He has no past medical history. In the ED he was started on vancomycin and Zosyn for foot abscess. Lab work revealed JOSELINE with a creatinine of 1.8. He denies NSAID use, but routinely takes an ASA at nighttime for pain. Previously in 2019 creatinine was normal. Patient also with severely elevated platelet count as well at 2164K (high end of normal 500K). Since his platelet count was that high and he needs urgent left foot surgery scheduled at 1500 on 09/30/23, hematology was consulted for eval and opinion and risk stratification for his thrombocytopenia. His labs revealed platelet count of 2,164,000 on 09/29/2023 and improved to 1,273,000 on 1128 2324 hrs. after starting antibiotics Zosyn and vancomycin. Remaining labs revealed 13.7 on admission and 13.4 on 09/30/2023. Her WBC 24,000 on admission on 09/29/2023 and increased to 36,000 mainly on neutrophils with absolute neutrophil count is 30,000 on 1128. Absolute monocyte count 4.8 on 1128 and 1.9 on 09/29/2023. Her absolute lymphocyte count 0.4 absolute eosinophil count 0.7 and absolute basophil count 0.7 minimally elevated. Labs revealed creatinine 1.8 and calcium 9.1 total protein of 6.6 ALT 16 AST 23 alkaline phosphatase 67. Iron is low at 25 transferrin 242 TIBC 339. Ferritin is 106, folate is over 22 and B12 942. Hemoglobin A1c 5.6%. On ROS, he denied any fevers or chills but has swelling and pain in the left foot with erythema as well. 14 points ROS was obtained and was otherwise negative. He stopped tobacco smoking 5 years ago but he stated he has wood burner at home and that produces some smokes. 10/20/23: Patient is here for results of the KALE 2 with reflex testing and the repeated labs including CBCD, CMP and iron studies. He is still at rehab for 3 more days then he will be discharged to home. He is still currently on IV antibiotics twice daily and he believes he is on blood thinners as well. Repeated labs on 10/17/23 revealed WBC still elevated 22 but decreased from 36K, HCT 50.7 and plt increased again to 576K after it improved from over 2 million to 179K with antibiotics, IV Venofer and his foot surgery. His iron studies revealed iron deficiency again with ferritin of 73 with iron sat 9%. Therefore needs to repeat his IV Venofer again despite he stated he had minimal bleeding only for 2 days after surgery from the surgical foot wound. 12 points ROS is reviewed and are negative. Review of Systems Constitutional: Negative. Eye: Negative. Ear/Nose/Mouth/Throa t: Negative. Respiratory: Negative. Cardiovascular: Negative. Gastrointestinal: Negative. Genitourinary: Negative. Hematology/Lymphatic s: Negative. Endocrine: Negative. Immunologic: Negative. Musculoskeletal: Left foot swelling with erythema and tenderness.. Integumentary: Negative, left foor erythema with swelling and warmth and possible abscess.. Neurologic: Alert and oriented X4. Psychiatric: Negative. ROS reviewed as documented in chart Health Status Allergies: Allergic Reactions (Selected) No Known Allergies Current medications: Home Medications (5) Active aspirin 81 mg Oral EC Tab 81 mg = 1 tab(s), Oral, Daily chlorthalidone 25 mg Tab 25 mg = 1 tab(s), Oral, Daily ferrous sulfate 325 mg Tab 325 mg = 1 tab(s), Oral, Every other day multivitamin 1 tab, Oral, Daily NIFEdipine 60 mg ER Tab 60 mg = 1 tab(s), Oral, Daily , No qualifying data available Problem list: No problem items selected or recorded. Histories Past Medical History: No active or resolved past medical history items have been selected or recorded. Family History: No family history items have been selected or recorded. Procedure history: No active procedure history items have been selected or recorded. Social History Social & Psychosocial Habits Alcohol 10/20/2023 Use: Current Comment: denies - 11/12/2018 16:05 - Romy Bella RN 10/20/2023 Use: Current Type: Beer Frequency: 1-2 times per year Comment: once in awhile - 09/29/2023 17:19 - Nancy Soto RN Substance Abuse 10/20/2023 Use: Current Comment: vicente - 11/12/2018 16:05 - Romy Bella RN 10/20/2023 Use: Current Comment: vicente - 09/29/2023 17:19 - Nancy Soto RN (more content not included)... Normal [facility] Auto Diffon 10-17-2023 Basophils/100 WBC (Bld) 0.4 % Normal 0.0-2.0 [facility] Comment on above: Order Comment: Order Added by Discern Expert. Performed By: #### 2 753466, 7936841, 6250769, 85754580 #### [facility] [address] [place] [address] Basophils/Leukocytes Auto (Bld) [Pure # fraction] 0.1 E9/L Normal 0.0-0.2 [facility] Comment on above: Order Comment: Order Added by Discern Expert. Performed By: #### 2 008797, 9552517, 8086334, 53748298 #### [facility] [address] [place] [address] Eosinophils/100 WBC (Bld) 1.7 % Normal 0.0-8.0 [facility] Comment on above: Order Comment: Order Added by Discern Expert. Performed By: #### 2 198576, 8868817, 9732720, 99666279 #### [facility] [address] [place] [address] Eosinophils/Leukocytes Auto (Bld) [Pure # fraction] 0.4 E9/L Normal 0.0-0.5 [facility] Comment on above: Order Comment: Order Added by Discern Expert. Performed By: #### 2 356765, 9473964, 6780109, 74515184 #### [facility] [address] [place] [address] Lymphocytes/100 WBC (Bld) 3.0 % Low 14.0-50.0 [facility] Comment on above: Order Comment: Order Added by Discern Expert. Performed By: #### 2 892953, 2222919, 3878245, 58488988 #### [facility] [address] [place] [address] Lymphocytes/Leukocytes Auto (Bld) [Pure # fraction] 0.7 E9/L Low 1.0-4.0 [facility] Comment on above: Order Comment: Order Added by Discern Expert. Performed By: #### 2 187732, 9273286, 3618537, 16456895 #### [facility] [address] [place] [address] Monocytes/100 WBC (Bld) 11.6 % Normal 4.0-14.0 [facility] Comment on above: Order Comment: Order Added by Discern Expert. Performed By: #### 2 577170, 9798700, 3434494, 50471713 #### [facility] [address] [place] [address] Monocytes/Leukocytes Auto (Bld) [Pure # fraction] 2.6 E9/L High 0.2-1.0 [facility] Comment on above: Order Comment: Order Added by Discern Expert. Performed By: #### 2 318329, 7345403, 9439012, 60993013 #### [facility] [address] [place] [address] Neutrophils/100 WBC (Bld) 83.3 % High 36.0-75.0 [facility] Comment on above: Order Comment: Order Added by Discern Expert. Performed By: #### 2 395235, 5209907, 4118352, 14971753 #### [facility] [address] [place] [address] Neutrophils/Leukocytes Auto (Bld) [Pure # fraction] 18.7 E9/L High 2.0-7.5 [facility] Comment on above: Order Comment: Order Added by Discern Expert. Performed By: #### 2 641023, 3537505, 5120702, 29784275 #### [facility] [address] [place] [address] CBC w/ Auto Diffon 3 Erythrocyte distribution width (RBC) [Ratio] 28.1 % High 10.9-14.2 [facility] Comment on above: Performed By: #### 1 6469188, 5770167, 6308998, 5024331, 4870740, 79597111, 6829796, 4042597, 1018744 ####[facility] [address] [place] [address] Hematocrit (Bld) [Volume fraction] 50.5 % High 37.7-49.0 [facility] Comment on above: Performed By: #### 1 8081116, 8081496, 6167421, 3823526, 5368313, 57128679, 4582161, 3486627, 2217971 ####[facility] [address] [place] [address] Hemoglobin (Bld) [Mass/Vol] 15.6 g/dL Normal 13.5-17.5 [facility] Comment on above: Performed By: #### 1 2932680, 9472661, 7345669, 8597060, 0101930, 05566461, 1169978, 0070646, 9481443 ####[facility] [address] [place] [address] MCH (RBC) [Entitic mass] 20.9 pg Low 27.0-34.0 [facility] Comment on above: Performed By: #### 1 6293259, 9034169, 1294181, 1168374, 9259934, 19274969, 5886054, 9790395, 4892439 ####[address] [place] [address] MCHC (RBC) [Mass/Vol] 30.9 g/dL Low 31.4-36.0 [facility] Comment on above: Performed By: #### 1 5270848, 1086342, 9620060, 9006107, 9717572, 47852306, 6510114, 2292733, 9992120 ####[facility] [address] [place] [address] MCV (RBC) [Entitic vol] 67.9 fL Low 80.0-100.0 [facility] Comment on above: Performed By: #### 1 6581994, 8595575, 9274439, 5412595, 9848678, 31852403, 5845505, 4153237, 7428250 ####[facility] [address] [place] [address] Platelet mean volume (Bld) [Entitic vol] 8.0 fL Normal 6.4-10.8 [facility] Comment on above: Performed By: #### 1 2274130, 7680387, 5088166, 9977073, 5739403, 92554053, 8489261, 4484126, 4893697 ####[address] [address] Platelets (Bld) [#/Vol] 576.0 E9/L High 150.0-500.0 [facility] Comment on above: Performed By: #### 1 3892756, 1851550, 6718649, 3352152, 5706416, 59504800, 8097783, 2431469, 2850696 ####[address] [address] RBC (Bld) [#/Vol] 7.4 E12/L High 4.3-5.9 [facility] Comment on above: Performed By: #### 1 1620088, 9855243, 8141403, 7358933, 2663514, 47317526, 7686247, 0801353, 4462444 ####[address] [address] WBC corrected for nucl RBC Auto (Bld) [#/Vol] 22.4 E9/L High 4.0-11.0 [facility] Comment on above: Performed By: #### 1 4958918, 5998352, 7781942, 5620969, 0533010, 02182470, 8588459, 6024167, 6195729 ####[address] [address] CMPon 10-17-2023 Albumin [Mass/Vol] 4.0 g/dL Normal 3.3-5.0 [facility] Comment on above: Performed By: #### 1 7595304, 8638079, 3884014, 0938621, 5498126, 80610169, 0299331, 8216950, 0744977 ####[facility] [address] [place] [address] Albumin/Globulin [Mass ratio] 1.3 {ratio} Normal 1.1-2.2 [facility] Comment on above: Performed By: #### 1 1252979, 7604009, 6220081, 1110647, 7681594, 80028603, 1637470, 6518673, 4989664 ####[facility] [address] [place] [address] Alk Phos 89 Int._Unit/L Normal 21-98 [facility] Comment on above: Performed By: #### 1 9106720, 0130341, 0836570, 7845646, 8600775, 96627388, 0570918, 4103453, 6627931 ####[address] [address] ALT 18 Int._Unit/L Normal 6-46 [facility] Comment on above: Performed By: #### 1 4156865, 4847584, 0029973, 1946136, 2137366, 49562805, 3295196, 4622072, 4748885 ####[address] [place] [address] Anion gap [Moles/Vol] 13 mmol/L Normal 6-16 [facility] Comment on above: Performed By: #### 1 0928449, 6835020, 5487911, 8527110, 6964771, 28805041, 5985513, 3056276, 7813066 ####[address] [place] [address] AST 23 Int._Unit/L Normal 5-43 [facility] Comment on above: Performed By: #### 1 3470281, 3939271, 7153816, 0795486, 6901539, 25212271, 3276957, 2825205, 4570839 ####[facility] [address] [place] [address] Bili Total 0.4 mg/dL Normal 0.0-1.1 [facility] Comment on above: Performed By: #### 1 9942520, 1807878, 8939236, 7505794, 3517283, 22794096, 8962427, 5865530, 8285985 ####[facility] [address] [place] [address] BUN/Creat Ratio 21 No Units High 10-20 [facility] Comment on above: Performed By: #### 1 8015127, 8389882, 7984474, 7102773, 0593770, 16007491, 4870304, 1100417, 4015286 ####[facility] [address] [place] [address] Calcium [Mass/Vol] 9.8 mg/dL Normal 8.9-11.1 [facility] Comment on above: Performed By: #### 1 3160827, 7555490, 2568983, 9359786, 1185341, 70933551, 5294682, 1046675, 5418157 ####[facility] [address] [place] [address] Chloride [Moles/Vol] 99 mmol/L Low 101-111 [facility] Comment on above: Performed By: #### 1 3314820, 6324774, 2870405, 8534073, 3338224, 11583211, 6832301, 7196865, 5818349 ####[facility] [address] [place] [address] CO2 [Moles/Vol] 29 mmol/L Normal 21-31 [facility] Comment on above: Performed By: #### 1 5034396, 9075502, 3715344, 3039627, 6607511, 35910758, 7892368, 3616994, 5425765 ####[facility] [address] [place] [address] Creatinine [Mass/Vol] 1.7 mg/dL High 0.5-1.3 [facility] Comment on above: Performed By: #### 1 0703350, 2054438, 2504618, 6679255, 0181729, 09257498, 4716724, 7963875, 9092324 ####[facility] [address] [place] [address] Globulin (S) [Mass/Vol] 3.1 g/dL Normal 1.4-4.0 [facility] Comment on above: Performed By: #### 1 6514416, 6693822, 5722019, 3531184, 5378978, 73473212, 6393957, 0171729, 9274356 ####[facility] [address] [place] [address] Glucose [Mass/Vol] 114 mg/dL Normal 55-199 [facility] Comment on above: Performed By: #### 1 3424882, 5002570, 5252281, 9026727, 7212972, 65498163, 8008025, 3636570, 1103000 ####[facility] [address] [place] [address] Potassium [Moles/Vol] 4.3 mmol/L Normal 3.5-5.3 [facility] Comment on above: Performed By: #### 1 8320705, 6798789, 4680280, 3700304, 3191824, 63378967, 9957472, 1360560, 5390704 ####[facility] [address] [place] [address] Protein [Mass/Vol] 7.1 g/dL Normal 6.0-7.8 [facility] Comment on above: Performed By: #### 1 4846023, 4589639, 0570255, 5595667, 8812018, 19296586, 8463647, 2898999, 6154514 ####[facility] [address] [place] [address] Sodium [Moles/Vol] 137 mmol/L Normal 135-145 [facility] Comment on above: Performed By: #### 1 8074310, 5104173, 9586940, 2718486, 0743094, 63252146, 2788116, 1960144, 6473394 ####[facility] [address] [place] [address] Urea nitrogen [Mass/Vol] 35 mg/dL High 5-21 [facility] Comment on above: Performed By: #### 1 3712908, 8067676, 8911340, 9505247, 1973265, 63074815, 5531896, 5804414, 7008967 ####[facility] [address] [place] [address] Consent for Treatmenton 10-03 Consent for Treatment [id number] #1.00TIFF Normal [facility] Ferritinon 10-17-2023 Ferritin Lvl 73 ng/mL Normal 24-336 [facility] Comment on above: Performed By: #### 1 8998215, 9390555, 1755713, 3211706, 3805159, 87892458, 8491949, 6123062, 5389415 ####[facility] [address] [place] [address] Ironon 10-17-2023 Iron 36 microgram/dL Normal 35-153 [facility] Comment on above: Performed By: #### 2 625172, 0899059, 8682553, 63587184 #### [facility] [address] [place] [address] Iron Saturationon 10-17-2023 Iron Sat 9 % Low 20-50 [facility] Comment on above: Performed By: #### 2 371768, 0177482, 2278917, 36183354 #### [facility] [address] [place] [address] TIBC 393 microgram/dL Normal 250-400 [facility] Comment on above: Performed By: #### 2 332923, 4867705, 1617222, 16150396 #### [facility] [address] [place] [address] Morphon 10-17-2023 Anisocytosis Ql (Bld) Present Normal Fis her [facility] Comment on above: Order Comment: Order Added by Discern Expert. Performed By: #### 1 3164533, 6657181, 3986394, 0601739, 4075374, 28333517, 2307412, 7395684, 3838629 ####[facility] [address] [place] [address] Hypochromia Auto Ql (Bld) Present Normal [facility] Comment on above: Order Comment: Order Added by Discern Expert. Performed By: #### 1 2983302, 4793451, 2944596, 3284808, 9939035, 44231531, 9543487, 1633120, 0457392 ####[facility] [address] [place] [address] Microcytes Ql (Bld) [facility] on above: Order Comment: Order Added by Discern Expert. Performed By: #### 1 0129221, 3367069, 8261186, 9827870, 3566341, 85442194, 8733012, 2210868, 0642439 ####[facility] [address] [place] [address] Morphology Panfilo (Bld) [Interp] See Morphology Normal [facility] Comment on above: Order Comment: Order Added by Discern Expert. Performed By: #### 1 8792868, 2635799, 5133896, 5414244, 2573072, 85930188, 1970258, 9392218, 7069537 ####[facility] [address] [place] [address] Platelets Large LM Ql (Bld) Present Normal [facility] Comment on above: Order Comment: Order Added by Discern Expert. Performed By: #### 1 1830182, 5442658, 3135637, 4057469, 2635032, 54999668, 7483884, 2368858, 6958442 ####[facility] [address] [place] [address] Polychromasia LM Ql (Bld) Present Normal [facility] Comment on above: Order Comment: Order Added by Discern Expert. Performed By: #### 1 2046606, 9415766, 0550674, 8748097, 9912222, 35849573, 4214064, 0756487, 7104623 ####[facility] [address] [place] [address] Transferrinon 10-17-2023 Transferrin [Mass/Vol] 281 mg/dL Normal 200-370 [facility] Comment on above: Performed By: #### 2 345738, 8252323, 7171481, 53485331 #### [facility] [address] [place] [address] eGFRon 10-17-2023 eGFR 40 mL/min/1.73 m2 Low >=59 [facility] Comment on above: Order Comment: Order added by Discern Expert. Performed By: #### 2 144693, 5744314, 7495901, 45932211 #### [facility] [address] [place] [address] Lab Miscellaneous-LCon 10-13 Lab Miscellaneous See Ref Report Invalid Interpretation Code [facility] Comment on above: Order Comment: test codes:29250 & 8325305 lav tubes Result Comment: Perf ormed at: [address] [id number] PhD Melisa Marc See scanned report Performed at: [address] [id number] PhD Melisa Marc Performed By: #### 1 [id number] ####[facility] [address] [place] [address] Reference Lab Reporton 10-13 Reference Lab Report [id number] 0#1.00TIFF Normal [facility] IntraOperative Documentson 1 12-07-2022 IntraOperative Documents [id number] #1.00TIFF Normal [facility] Progress Note-Physicianon Progress Note-Physician Patient: VIKAS GRIMALDO Age: 82 years Sex: Male : 1940 Associated Diagnoses: None Author: MD Almodovar Ahmad F Postoperative Information Postoperative disposition: Postoperative disposition: To PACU. Optimetrix number: Optimetrix number [id number]. Anesthetic utilized: General. Health Status Allergies: Allergic Reactions (Selected) No Known Allergies Physical Examination VS/Measurements Pain Assessment: Controlled. General: Awake, Alert, Appropriate. Respiratory: Adequate air exchange. Cardiovascular: Stable, Normal peripheral perfusion. Neurological: Normal sensory function, Normal motor function. Assessment Anesthetic outcome No anesthetic complications noted. Adequate pain relief. able to void without difficulty, able to ambulate with assist, tolerating PO intake, no N/V. Review / Management Condition: Stable. Plan Transfer/Discharge: Transfer/Discharge Discharge when meets criteria ( To home ). Normal [facility] Comment on above: Result Comment: Elec tronically Signed By: MD Almodovar Ahmad F\.br\Date and Time Signed: 10/04/23 18:11 EST Progress Note-Physician Patient: VIKAS GRIMALDO Age: 82 years Sex: Male : 1940 Associated Diagnoses: None Author: MD Almodovar Ahmad F Preoperative Information Time patient last ate or drank:=== (npo 8 hours) Anesthesia history: Patient history: No prior anesthesia problems. Re-evaluation prior to induction: Completed, Initial evaluation reviewed. Review of Systems Respiratory: No shortness of breath. Cardiovascular: No chest pain. Hematology/Lymphatic s: No bruising tendency, No bleeding tendency. Health Status Allergies: Allergic Reactions (All) No Known Allergies Current medications: (Selected) Prescriptions Prescribed Augmentin 875 mg-125 mg Tab: 1 tab(s), Oral, q12hr for 14 day(s), 28 tab(s), Refill(s) 0, [facility], 167, cm, 09/29/23 16:31:00 EST, Height/Length Dosing, 62, kg, 09/29/23 16:31:00 EST, Weight Dosing NIFEdipine 60 mg ER Tab: 60 mg = 1 tab(s), Oral, Daily, # 30 tab(s), Refills(s) 0, Pharmacy: [facility], 167, cm, 09/29/23 16:31:00 EST, Height/Length Dosing, 62, kg, 09/29/23 16:31:00 EST, Weight Dosing chlorthalidone 25 mg Tab: 25 mg = 1 tab(s), Oral, Daily, # 30 tab(s), Refills(s) 0, Pharmacy: [facility], 167, cm, 09/29/23 16:31:00 EST, Height/Length Dosing, 62, kg, 09/29/23 16:31:00 EST, Weight Dosing ferrous sulfate 325 mg Tab: 325 mg = 1 tab(s), Oral, Every other day, # 30 tab(s), Refills(s) 0, Pharmacy: [facility], 167, cm, 09/29/23 16:31:00 EST, Height/Length Dosing, 62, kg, 09/29/23 16:31:00 EST, Weight Dosing Documented Medications Documented aspirin 81 mg Oral EC Tab: 81 mg = 1 tab(s), Oral, Daily, Refills(s) 0 multivitamin: 1 tab, Oral, Daily, Refill(s) 0 Problem list: No problem items selected or recorded. Histories Past Medical History: No active or resolved past medical history items have been selected or recorded. Family History: No family history items have been selected or recorded. Procedure history: No active procedure history items have been selected or recorded. Social History Social & Psychosocial Habits Alcohol 09/30/2023 Use: Current Comment: vicente - 11/12/2018 16:05 Romy Deshpande RN 09/30/2023 Use: Current Type: Beer Frequency: 1-2 times per year Comment: once in awhile - 09/29/2023 17:19 - Nancy Soto RN Substance Abuse 09/30/2023 Use: Current Comment: vicente - 11/12/2018 16:05 Romy Deshpande RN 09/30/2023 Use: Current Comment: vicente - 09/29/2023 17:19 - Nancy Soto RN Tobacco 09/30/2023 Tobacco Use: Never (less than 100 in l Comment: vicente - 11/12/2018 16:05 - Bella Romy VINES 09/30/2023 Tobacco Use: Former smoker, quit more . Physical Examination Please see preop flow sheet Airway: Mallampati classification: II (soft palate, fauces, uvula visible). Respiratory: Lungs are clear to auscultation. Cardiovascular: Normal rate, Regular rhythm. Neurologic: Alert. Review / Management Results review Interpretation of Outside Results Chest x-ray results Radiology results ECG interpretation Condition Plan [place] [employer] (ASA) physical status classification: Class III. Anesthetic Preoperative Plan Anesthesia: General. . Anesthetic plan, risks, benefits, and alternatives discussed with the patient and/or family. Risks discussed: nausea, vomiting, headache, sore throat, dental injury, serious complications. Patient verbalized understanding. Communication: face to face with patient 5 minutes. Normal [facility] Comment on above: Result Comment: Elec tronically Signed By: MD Scooby, Raiza Norris\.br\Date and Time Signed: 10/04/23 18:10 EST Auto Diffon 10-03-2023 Basophils/100 WBC (Bld) 1.7 % Normal 0.0-2.0 [facility] Comment on above: Order Comment: Order Added by Discern Expert. Performed By: #### 2 858062, 42154863, 2104290, 23738189, 715382688, 3037816, 71877770 #### [facility] [address] [place] [address] Basophils/Leukocytes Auto (Bld) [Pure # fraction] 0.4 E9/L High 0.0-0.2 [facility] Comment on above: Order Comment: Order Added by Discern Expert. Performed By: #### 2 549676, 24144788, 0809321, 66911136, 341787702, 0409875, 39108214 #### [facility] [address] [place] [address] Eosinophils/100 WBC (Bld) 1.1 % Normal 0.0-8.0 [facility] Comment on above: Order Comment: Order Added by Discern Expert. Performed By: #### 2 547350, 43064973, 1423868, 49499419, 879180371, 8012339, 92652975 #### [facility] [address] [place] [address] Eosinophils/Leukocytes Auto (Bld) [Pure # fraction] 0.2 E9/L Normal 0.0-0.5 [facility] Comment on above: Order Comment: Order Added by Discern Expert. Performed By: #### 2 554353, 35304733, 0115658, 81904013, 638872705, 5380561, 79929574 #### [facility] [address] [place] [address] Lymphocytes/100 WBC (Bld) 3.0 % Low 14.0-50.0 [facility] Comment on above: Order Comment: Order Added by Discern Expert. Performed By: #### 2 880634, 14832610, 9346078, 43806655, 962244104, 8112619, 10331431 #### [facility] [address] [place] [address] Lymphocytes/Leukocytes Auto (Bld) [Pure # fraction] 0.7 E9/L Low 1.0-4.0 [facility] Comment on above: Order Comment: Order Added by Discern Expert. Performed By: #### 2 029489, 57970583, 4092712, 45494488, 142170283, 1784816, 34269239 #### [facility] [address] [place] [address] Monocytes/100 WBC (Bld) 13.4 % Normal 4.0-14.0 [facility] Comment on above: Order Comment: Order Added by Discern Expert. Performed By: #### 2 [id number], [id number], 9653341, 57987184, [id number], 9376036, [id number] #### [facility] [address] [place] [address] Monocytes/Leukocytes Auto (Bld) [Pure # fraction] 2.9 E9/L High 0.2-1.0 [facility] Comment on above: Order Comment: Order Added by Discern Expert. Performed By: #### 2 786049, [id number], 4734386, 91325002, [id number], 3573408, [id number] #### [facility] [address] [place] [address] Neutrophils/100 WBC (Bld) 80.8 % High 36.0-75.0 [facility] Comment on above: Order Comment: Order Added by Discern Expert. Performed By: #### 2 877314, 16973285, 0571634, 73097423, 760940529, 9489362, [id number] #### [facility] [address] [place] [address] Neutrophils/Leukocytes Auto (Bld) [Pure # fraction] 17.8 E9/L High 2.0-7.5 [facility] Comment on above: Order Comment: Order Added by Discern Expert. Performed By: #### 2 753907, 49778704, 2531258, 52343444, 335284881, 0945602, [id number] #### [facility] [address] [place] [address] BMPon 10-03-2023 Anion gap [Moles/Vol] 10 mmol/L Normal 6-16 [facility] Comment on above: Performed By: #### 2 302929, 0765803, 8133355, [id number] #### [facility] [address] [place] [address] Calcium [Mass/Vol] 8.6 mg/dL Low 8.9-11.1 [facility] Comment on above: Performed By: #### 2 742289, 0928604, 0127335, 49886788 #### [facility] [address] [place] [address] Chloride [Moles/Vol] 111 mmol/L Normal 101-[address] [facility] Comment on above: Performed By: #### 2 115264, 8514663, 1056978, 99899643 #### [facility] [address] [place] [address] CO2 [Moles/Vol] 23 mmol/L Normal 21-31 [facility] Comment on above: Performed By: #### 2 255920, 4594204, 6680214, 90651285 #### [facility] [address] [place] [address] Creatinine [Mass/Vol] 1.3 mg/dL Normal 0.5-1.3 [facility] Comment on above: Performed By: #### 2 418839, 2088034, 1562695, 49060092 #### [facility] [address] [place] [address] Glucose [Mass/Vol] 88 mg/dL Normal 55-199 [facility] Comment on above: Result Comment: If t his glucose result represents a fasting glucose, interpretation should refer to the following reference range: 55-99 mg/dL Performed By: #### 2 742673, 6180658, 7780881, 26212673 #### [facility] [address] [place] [address] Potassium [Moles/Vol] 3.8 mmol/L Normal 3.5-5.3 [facility] Comment on above: Performed By: #### 2 014376, 2870661, 0895973, 92560683 #### [facility] [address] [place] [address] Sodium [Moles/Vol] 140 mmol/L Normal 135-145 [facility] Comment on above: Performed By: #### 2 243987, 9130483, 1892416, 94639276 #### [facility] [address] [place] [address] Urea nitrogen [Mass/Vol] 26 mg/dL High 5-21 [facility] Comment on above: Performed By: #### 2 863408, 6906232, 0055549, 35280184 #### [facility] [address] [place] [address] Urea nitrogen/Creatinine [Mass ratio] 20 No Units Normal 10-20 [facility] Comment on above: Performed By: #### 2 736845, 3747898, 0733200, 01623034 #### [facility] [address] [place] [address] BNPon 10-03-2023 Natriuretic peptide B (Bld) [Mass/Vol] 186 pg/mL High 5-80 [facility] Comment on above: Performed By: #### 2 059795, 05807073, 8267081, 12759791, 982801524, 1118381, 98590249 #### [facility] [address] [place] [address] CBC w/ Auto Diffon Erythrocyte distribution width (RBC) [Ratio] 21.3 % High 10.9-14.2 [facility] Comment on above: Performed By: #### 2 709464, 86898110, 7848898, 13210031, 567768541, 9696245, 99364757 #### [facility] [address] [place] [address] Hematocrit (Bld) [Volume fraction] 40.9 % Normal 37.7-49.0 [facility] Comment on above: Performed By: #### 2 231135, 65211209, 3663431, 30213940, 242291526, 9642513, 63239393 #### [facility] [address] [place] [address] Hemoglobin (Bld) [Mass/Vol] 12.5 g/dL Low 13.5-17.5 [facility] Comment on above: Performed By: #### 2 121881, 18305437, 9078570, 21630345, 891785126, 2746837, 78545450 #### [facility] [address] [place] [address] MCH (RBC) [Entitic mass] 19.4 pg Low 27.0-34.0 [facility] Comment on above: Performed By: #### 2 164120, 31087102, 2935379, 58800092, 416490465, 6408357, 00010299 #### [facility] [address] [place] [address] MCHC (RBC) [Mass/Vol] 30.5 g/dL Low 31.4-36.0 [facility] Comment on above: Performed By: #### 2 567735, 12415169, 8761635, 53031891, 813242640, 2692166, 13792633 #### [facility] [address] [place] [address] MCV (RBC) [Entitic vol] 63.6 fL Low 80.0-100.0 [facility] Comment on above: Performed By: #### 2 770918, 90637015, 0983825, 55613825, 383497596, 7639698, 12450450 #### [facility] [address] [place] [address] Platelet mean volume (Bld) [Entitic vol] 7.8 fL Normal 6.4-10.8 [facility] Comment on above: Performed By: #### 2 222327, 40628594, 8995487, 31807368, 208701511, 6047935, 92288937 #### [facility] [address] [place] [address] Platelets (Bld) [#/Vol] 172.0 E9/L Normal 150.0-500.0 [facility] Comment on above: Performed By: #### 2 021710, 76549858, 3991720, 87084470, 203921824, 1253061, 80169343 #### [facility] [address] [place] [address] RBC (Bld) [#/Vol] 6.4 E12/L High 4.3-5.9 [facility] Comment on above: Performed By: #### 2 707147, 86364575, 4374982, 74977057, 359325278, 5027704, 08999125 #### [facility] [address] [place] [address] WBC corrected for nucl RBC Auto (Bld) [#/Vol] 22.0 E9/L High 4.0-11.0 [facility] Comment on above: Performed By: #### 2 274000, 25294722, 8231508, 66419063, 710344467, 9129752, 37558051 #### [facility] [address] [place] [address] CHEMISTRYOrdered By: SYSTEM SYSTEM on 10-03-2023 Anion gap [Moles/Vol] 10 mmol/L Normal 6 - 16 mEq/L F [facility] Calcium [Mass/Vol] 8.6 mg/dL Low 8.9 - 11. 1 mg/dL [facility] Chloride [Moles/Vol] 111 mmol/L Normal 101 - 1 11 mmol/L [facility] CO2 [Moles/Vol] 23 mmol/L Normal 21 - 31 mmol/L [facility] Creatinine [Mass/Vol] 1.3 mg/dL Normal 0.5 - 1.3 mg/dL [facility] GFR/1.73 sq M.predicted among non-blacks MDRD (S/P/Bld) [Vol rate/Area] 56 mL/min/1.73 m2 Low >=59mL/min/1 .73 m2 [facility] Chem S Comment on above: Interpretive Data: C hronic kidney disease could be indicated at eGFR's of less than 60 mL/min/1.73m2. Kidney failure is indicated at less than 15 mL/min/1.73m2. Glucose [Mass/Vol] 88 mg/dL Normal 55 - 199 mg/dL [facility] Comment on above: Interpretive Data: I f this glucose result represents a fasting glucose, interpretation should refer to the following reference range: 55-99 mg/dL Magnesium [Mass/Vol] 2.0 mg/dL Normal 1.3 - 2 .4 mg/dL [facility] Potassium [Moles/Vol] 3.8 mmol/L Normal 3.5 - 5.3 mmol/L [facility] Sodium [Moles/Vol] 140 mmol/L Normal 135 - 145 mmol/L [facility] Urea nitrogen [Mass/Vol] 26 mg/dL High 5 - 21 mg/d L [facility] Remisol Urea nitrogen/Creatinine [Mass ratio] 20 mg/mg Normal 10 - 20 [facility] Remisol CHEMISTRYOrdered By: Agatha Kim on 10-03-2023 Natriuretic peptide B (Bld) [Mass/Vol] 186 pg/mL High 5 - 80 pg/mL [facility] HemeManSS Coding Queryon 10-03-2023 Coding Query - From: Kerwin Small RN To: Raiza Ta MD; Sent: 10/03/2023 14:48:37 EST ! Subject: Coding Query Due Date/Time: 10/04/2023 14:48:00 EST Caller Name: VIKAS GRIMALDO; Caller Number: H Documentation per a it infrastructure consultant in the medical record indicates this patient has been diagnosed as having: ATN The following is also documented in the medical record: 10/02 Nephrology: 1. JOSELINE with unknown baseline Cr likely from left foot abscess. This is likely ATN. UA with 1+ protein. Cr stable at 1.8mg/dl since admission. Ct appears to show Rt kidney cyst. No significant urinary tract calculi or hydronephrosis. -No need for NURSE AUDITOR at this time. May reduce NS to 75cc/hr. Nonoliguric Based on your medical judgment of the documented diagnoses by the it infrastructure consultant, do you agree with the diagnosis? [___]Yes, I agree with the diagnosis documented by the it infrastructure consultant. [___]No, I do not agree with the diagnosis documented by the it infrastructure consultant. Reason: [___]Other: In responding to this request, please exercise your independent professional judgement. The fact that a question is asked does not imply that any particular answer is desired or expected. Thank you![email or web address] [phone] - From: Raiza Ta MD To: Kerwin Small RN; Sent: 10/03/2023 16:55:33 EST Subject: RE: Coding Query Caller Name: VIKAS GRIMALDO; Caller Number: H Yes, I agree with the diagnosis documented by the it infrastructure consultant. Normal [facility] Discharge Note-Nursingon Discharge Note-Nursing VIKAS GRIMALDO :1940 Visit Date:09/29/2023 Inpatient Discharge Instructions Your Care Team Admitting Physician - Leila ANAYA, Sonya Consulting Physician - Coby BATISTA, Ryan Cervantes MD, Manav Thomson M.D, Bernard Quinteros DPM, Vinod Arnold MD, Abhishek Reason for Your Visit Left foot swelling Your Diagnosis Abscess of left foot excluding toes Thrombocytosis JOSELINE (acute kidney injury) Elevated blood pressure reading Iron deficiency Wound infection - complicated Tests Performed .Manual Abs Automated Diff B-Type Natriuretic Peptide BMP C-Reactive Protein CBC w/ Auto Diff CMP eGFR Ferritin Folate Level Hemoglobin A1c Iron Level Lab Miscellaneous-LC Lactic Acid Magnesium Level Manual Diff Morphology Osmolality Path. Review PT & PTT Sedimentation Rate Automated T4 & TSH TIBC Calculated Urinalysis Urine Creatinine Urine Osmolality Urine Sodium Level Vancomycin Level Peak Vancomycin Level Trough Vitamin B12 Level CT Abdomen/Pelvis w/o Contrast CT Chest w/o Contrast Echo Transthoracic Complete MRI Foot w/o Contrast Left US LE Venous Duplex Left XR Chest Single View XR Foot 3+ Views Left This Is Your Medications List NIFEdipine (NIFEdipine 60 mg ER Tab) amoxicillin-clavulan ate (Augmentin 875 mg-125 mg Tab) aspirin (aspirin 81 mg Oral EC Tab) chlorthalidone (chlorthalidone 25 mg Tab) ferrous sulfate (ferrous sulfate 325 mg Tab) multivitamin Discharge Vitals Temperature (Axillary) 36.3 ?C Heart Rate (Monitored) 90 Respiratory Rate 16 Blood Pressure 153/76 What to do next Instructions From Your Doctor Event Name Event Result Pending Diagnostic Test Results None Discharge Instructions Please follow up with physcians as instructed Previously Scheduled Follow-Up Appointments Friday 3:00 PM EST Where: [facility] New Follow Up Appointments after Discharge Follow Up with Luis Snowden When: Comments: Establish care Where: [address] [place] [phone] Business (1) Follow Up with Orlando Pyle When: Comments: Thrombocytosis Follow Up with Fernando Bucio When: Comments: CHENG Where: [address], [address] [facility] [address] [place] [phone] Business (1) Follow Up with Manav Cervantes When: Comments: CKD Where: [facility] [address] [place] [address]- Business (1) Follow Up with [facility] When: Follow Up with Vinod Quinteros When: Within 5 to 7 days Where: [facility] [address] [place] [address] 0 Business (1) Medications What How Much When Instructions Next Dose New amoxicillin-clavulan ate (Augmentin 875 mg-125 mg Tab) 1 Tablets By Mouth Every 12 hours Duration: 14 Days Pickup at [facility] start New chlorthalidone (chlorthalidone 25 mg Tab) 1 Tablets By Mouth Every day Pickup at [facility] start New ferrous sulfate (ferrous sulfate 325 mg Tab) 1 Tablets By Mouth Every other day Pickup at [facility] start New NIFEdipine (NIFEdipine 60 mg ER Tab) 1 Tablets By Mouth Every day Pickup at [facility] start Unchanged aspirin (aspirin 81 mg Oral EC Tab) 1 Tablets By Mouth Every day resume Unchanged multivitamin 1 tab By Mouth Every day resume Pharmacy Information [facility]: [address] [place], [place] [id number] [phone] Test Results CBC BMP WBC: 22 E9/L High (10/03/23 06:46:00) Glucose Lvl: 88 mg/dL (10/03/23 06:46:00) RBC: 6.4 E12/L High (10/03/23 06:46:00) BUN: 26 mg/dL High (10/03/23 06:46:00) HGB: 12.5 gm/dL Low (10/03/23 06:46:00) Creatinine: 1.3 mg/dL (10/03/23 06:46:00) Hct: 40.9 % (10/03/23 06:46:00) BUN/Creat Ratio: 20 (10/03/23 06:46:00) MCV: 63.6 fL Low (10/03/23 06:46:00) Sodium Lvl: 140 mmol/L (10/03/23 06:46:00) MCH: 19.4 pg Low (10/03/23 06:46:00) Potassium Lvl: 3.8 mmol/L (10/03/23 06:46:00) MCHC: 30.5 gm/dL Low (10/03/23 06:46:00) Chloride: 111 mmol/L (10/03/23 06:46:00) RDW: 21.3 % High (10/03/23 06:46:00) CO2: 23 mmol/L (10/03/23 06:46:00) Platelet: 172 E9/L (10/03/23 06:46:00) AGAP: 10 mEq/L (10/03/23 06:46:00) MPV: 7.8 fL (10/03/23 06:46:00) Calcium Lvl: 8.6 mg/dL Low (10/03/23 06:46:00) Allergies No Known Allergies Education [employer] [place], [place] Vinod Quinteros DPM, FACFAS POST OPERATIVE INSTRUCTIONS Keep bandage clean and dry and DO NOT REMOVE Keep foot elevated on white foam pillow Apply cryocuff to top of ankle, one hour on one hour off, until first office visit Non weight bearing on operative foot. Take pain medications as directed Do not be alarmed if you notice slight bleeding on the bandage, this is normal Report any increase in swe (more content not included)... Normal [facility] HEMATOLOGYOrdered By: Agatha Kim on 10-03-2023 Anisocytosis Ql (Bld) Present (10/03/23 6:46 AM) Normal [facility] HemeManSS Erythrocyte distribution width (RBC) [Ratio] 21.3 % High 10.9 - 14.2 % [facility] HemeAutoSS Hematocrit (Bld) [Volume fraction] 40.9 % Normal 37.7 - 49.0 % [facility] HemeAuto[facility] Hemoglobin (Bld) [Mass/Vol] 12.5 g/dL Low 13.5 - 17.5 gm/dL [facility] HemeAutoSS Hypochromia Auto Ql (Bld) Present (10/03/23 6:46 AM) Normal [facility] MCH (RBC) [Entitic mass] 19.4 pg Low 27. 0 - 34.0 pg [facility] HemeAutoSS MCHC (RBC) [Mass/Vol] 30.5 g/dL Low 31.4 - 36.0 gm/dL [facility] HemeAutoSS MCV (RBC) [Entitic vol] 63.6 fL Low 80.0 - 100.0 fL [facility] Microcytes Ql (Bld) Present (10/03/23 6:46 AM) Normal [facility] Morphology Panfilo (Bld) [Interp] See Morphology (10/03/23 6:46 AM) Normal [facility] Ovalocytes LM Ql (Bld) Present (10/03/23 6:46 AM) Normal [facility] Platelet mean volume (Bld) [Entitic vol] 7.8 fL Normal 6.4 - 10.8 fL [facility]eAuto[facility] Platelets (Bld) [#/Vol] 172.0 E9/L Normal 150. 0 - 500.0 E9/L [facility]eAuto[facility] Platelets Large LM Ql (Bld) Present (10/03/23 6:46 AM) Normal [facility] Polychromasia LM Ql (Bld) Present (10/03/23 6:46 AM) Normal [facility] RBC (Bld) [#/Vol] 6.4 E12/L High 4.3 - 5.9 E12/L [facility]Auto[facility] WBC corrected for nucl RBC Auto (Bld) [#/Vol] 22.0 E9/L High 4.0 - 11.0 E9/L [facility]eAuto[facility] HEMATOLOGYOrdered By: SYSTEM SYSTEM on 10-03-2023 Basophils/100 WBC (Bld) 1.7 % Normal 0.0 - 2.0 % [facility] Basophils/Leukocytes Auto (Bld) [Pure # fraction] 0.4 E9/L High 0.0 - 0.2 E9/L [facility] Eosinophils/100 WBC (Bld) 1.1 % Normal 0.0 - 8.0 % [facility]Auto[facility] Eosinophils/Leukocytes Auto (Bld) [Pure # fraction] 0.2 E9/L Normal 0.0 - 0.5 E9/L [facility] Lymphocytes/100 WBC (Bld) 3.0 % Low 14.0 - 50.0 % [facility]Auto[facility] Lymphocytes/Leukocytes Auto (Bld) [Pure # fraction] 0.7 E9/L Low 1.0 - 4.0 E9/L [facility]Auto[facility] Monocytes/100 WBC (Bld) 13.4 % Normal 4.0 - 14.0 % [facility]eAuto[facility] Monocytes/Leukocytes Auto (Bld) [Pure # fraction] 2.9 E9/L High 0.2 - 1.0 E9/L [facility]Auto[facility] Neutrophils/100 WBC (Bld) 80.8 % High 36.0 - 75.0 % [facility]eAuto[facility] Neutrophils/Leukocytes Auto (Bld) [Pure # fraction] 17.8 E9/L High 2.0 - 7.5 E9/L [facility]eAutoSS Inpatient Clinical Summaryon 10-03-2023 Inpatient Clinical Summary [address] [address] Clinical Summary Person Information: Name: VIKAS GRIMALDO Age: 82 Years : 1940 Sex: Male PCP: JUSTIN CARUSO Marital Status: Single Race: White Ethnicity: Non- or Language: Malagasy Visit Id: Visit Reason: Wound infection - complicated; LEFT FT - SENT BY [facility] Speciality: Acuity: Enc Type: Inpatient Med Service: Medical Arrival: 09/29/2023 16:15:49 Discharge: Dispo Type: Admitted as IP to this [facility] Address: [address] [place] [address] [place] [phone] Provider Notes: Diagnosis: 1:Abscess of left foot excluding toes; 2:Thrombocytosis; 3:JOSELINE (acute kidney injury); 4:Elevated blood pressure reading Problems No Problems Documented Smoking Status: Former Smoker Functional Status: Sensory Deficits: History of Falls: Mobility Assistance Prior to Admission: Independent ADLs: Independent Current Level of Assistance for Self-Care/Mobility: Cognitive Status: Oriented x 3 Allergies No Known Allergies Measurements: Height: 170.18 cm Weight: 69.3 kg Blood Pressure: 153 mmHg / 76 mmHg BMI: 20.3 kg/m2 Procedures No Procedures Documented Immunizations No Immunizations Documented This Visit Final Med List: amoxicillin-clavulan ate (Augmentin 875 mg-125 mg Tab) 1 Tablets By Mouth every 12 hours for 14 Days. Refills: 0. aspirin (aspirin 81 mg Oral EC Tab) 1 Tablets By Mouth every day. chlorthalidone (chlorthalidone 25 mg Tab) 1 Tablets By Mouth every day. Refills: 0. ferrous sulfate (ferrous sulfate 325 mg Tab) 1 Tablets By Mouth every other day. Refills: 0. multivitamin 1 tab By Mouth every day. NIFEdipine (NIFEdipine 60 mg ER Tab) 1 Tablets By Mouth every day. Refills: 0. Care Team Members: Attending Physician: Sonya Dee MD Consulting Physician: Ryan Tenorio DO; Flor MARCUS, Vinod Grossman; Helen ANAYA, Manav; Alix Mckeon, Bernard Arnold MD, Abhishek Referring Physician: Follow up: With: Address: When: Luis Snowden [address] [phone] Business (1) Comments: Establish care With: Address: When: Orlando Pyle Comments: Thrombocytosis With: Address: When: Fernando Yungwilman [address] [facility], [address], [facility] [address] [place] [phone] Business (1) Comments: CHENG With: Address: When: Manav Cervantes [facility], [address] [place] [address] Business (1) Comments: CKD With: Address: When: [facility] With: Address: When: [facility], [address] [facility], [facility], [place] [address] 0 Business (1) Within 5 to 7 days Type Location Start Finish State ONC Office Visit 30 (FT) Secured Location 10/14/2023 3:00 PM 10/14/2023 3:30 PM Confirmed Patient Education Information: Flor - Post Operative Instructions (Revised 06/30/14) (Custom) Normal [facility] Inpatient Patient Summaryon 10-03-2023 Inpatient Patient Summary [facility] [address] [place], [place] [address] Patient Discharge Instructions PERSON INFORMATION Name: VIKAS GRIMALDO Date of : 1940 Current Date: 10/03/2023 12:50:13 PHYSICIANS Admitting Physician: Sonya Dee MD Primary Care Physician: JUSTIN CARUSO PCP Phone Number: Comment: Discharge Diagnosis: 1:Abscess of left foot excluding toes; 2:Thrombocytosis; 3:JOSELINE (acute kidney injury); 4:Elevated blood pressure reading Condition at Discharge: Stable VIKAS GRIMALDO has been given the following list of follow-up instructions, prescriptions, and patient education materials: PATIENT FOLLOW-UP INFORMATION Diet: Discharge Activity: Discharge Restrictions: Wound Care Instructions: Remove Your Dressing In Days Call Your Doctor For: IF UNABLE TO CONTACT YOUR PHYSICIAN AND YOU FEEL IT IS AN EMERGENCY, GO TO THE NEAREST EMERGENCY ROOM OR CALL 911 Home Treatment: Devices/Equipment: None Special Services: Additional Instructions: Please follow up with physcians as instructed Primary Care Physician to provide the following pending test results: None Follow up: With: Address: When: Luis Snowden [address] [phone] Business (1) Comments: Establish care With: Address: When: Orlando Pyle Comments: Thrombocytosis With: Address: When: Fernando Bucio [address], [address], [facility] [address] [place] [phone] Business (1) Comments: CHENG With: Address: When: Manav [facility], [address] [place] [address] Business (1) Comments: CKD With: Address: When: [facility] With: Address: When: Vinod DOE - [facility], [facility], [address], [place] [address] 0 Business (1) Within 5 to 7 days In the event that this physician does not participate in your insurance network, please consult with your insurance company to find a nearby participating provider. Type Location Start [facility] ONC Office Visit 30 (FT) Secured Location 10/14/2023 3:00 PM 10/14/2023 3:30 PM Confirmed Comment: DILLAN Chau WAYNE R, have received the attached patient education materials/instructio ns and have verbalized understanding: Patient Signature Date Clinican/Nurse Signature Date HERE ARE THE MEDICATION CHANGES THAT OCCURRED DURING YOUR HOSPITAL STAY New Medications [facility], [address] [place], [place] [id number], [phone] amoxicillin-clavulan ate (Augmentin 875 mg-125 mg Tab) 1 Tablets By Mouth every 12 hours for 14 Days. Refills: 0. Last Dose: Next Dose: chlorthalidone (chlorthalidone 25 mg Tab) 1 Tablets By Mouth every day. Refills: 0. Last Dose: Next Dose: ferrous sulfate (ferrous sulfate 325 mg Tab) 1 Tablets By Mouth every other day. Refills: 0. Last Dose: Next Dose: NIFEdipine (NIFEdipine 60 mg ER Tab) 1 Tablets By Mouth every day. Refills: 0. Last Dose: Next Dose: Medications to Continue with No Changes Other Medications aspirin (aspirin 81 mg Oral EC Tab) 1 Tablets By Mouth every day. Last Dose: Next Dose: multivitamin 1 tab By Mouth every day. Last Dose: Next Dose: Comment: MEDICATION LIST PROVIDED FOR YOU IS A LIST OF YOUR CURRENT MEDICATIONS. PLEASE CARRY THIS WITH YOU AT ALL TIMES. amoxicillin-clavulan ate (Augmentin 875 mg-125 mg Tab) 1 Tablets By Mouth every 12 hours for 14 Days. Refills: 0. aspirin (aspirin 81 mg Oral EC Tab) 1 Tablets By Mouth every day. chlorthalidone (chlorthalidone 25 mg Tab) 1 Tablets By Mouth every day. Refills: 0. ferrous sulfate (ferrous sulfate 325 mg Tab) 1 Tablets By Mouth every other day. Refills: 0. multivitamin 1 tab By Mouth every day. NIFEdipine (NIFEdipine 60 mg ER Tab) 1 Tablets By Mouth every day. Refills: 0. Pharmacy Information: Comment: PATIENT EDUCATION INFORMATION Instructions: [place], [place] Vinod Quinteros DPM, FACFAS POST OPERATIVE INSTRUCTIONS Keep bandage clean and dry and DO NOT REMOVE Keep foot elevated on white foam pillow Apply cryocuff to top of ankle, one hour on one hour off, until first office visit Non weight bearing on operative foot. Take pain medications as directed Do not be alarmed if you notice slight bleeding on the bandage, this is normal Report any increase in swelling to Dr. Quinteros immediately Resume regular diet. Call the office if you develop: persistent bleeding temperature above 100 degrees persistent vomiting calf pa (more content not included)... Normal [facility] Interdisciplinary Note - Kaveh e Manageron 10-03-2023 Interdisciplinary Note - Software Engineering Associate Manager Pending wound cxs. [facility] accepts and will cover dwight [place]. 3MN 10/02. May need IV atx. CRM to follow. Pt will not need IV atx. PLan to dc to [facility] today via cleo. Normal [facility] Comment on above: Result Comment: Elec tronically Signed By: Agatha Brady\Date and Time Signed: 10/03/23 12:17 EST Magnesiumon 10-03-2023 Magnesium [Mass/Vol] 2.0 mg/dL Normal 1.3-2.4 [facility] Comment on above: Performed By: #### 2 077826, [id number], 0455802, [id number] #### [facility] [address] [place] [address] Morphon 10-03-2023 Anisocytosis Ql (Bld) Present Normal [facility] Comment on above: Order Comment: Order Added by Discern Expert. Performed By: #### 2 081907, [id number], 4978310, [id number], [id number], 7841841, [id number] #### [facility] [address] [place] [address] Hypochromia Auto Ql (Bld) Present Normal [facility] Comment on above: Order Comment: Order Added by Discern Expert. Performed By: #### 2 825404, [id number], 4049368, [id number], [id number], 5082526, [id number] #### [facility] [address] [place] [address] Microcytes Ql (Bld) Present Normal [facility] Comment on above: Order Comment: Order Added by Discern Expert. Performed By: #### 2 961170, [id number], 3442858, 37001296, [id number], 8905633, [id number] #### [facility] [address] [place] [address] Morphology Panfilo (Bld) [Interp] See Morphology Normal [facility] Comment on above: Order Comment: Order Added by Discern Expert. Performed By: #### 2 843448, [id number], 8472536, [id number], [id number], 6144125, [id number] #### [facility] [address] [place] [address] Ovalocytes LM Ql (Bld) Present Normal [facility] Comment on above: Order Comment: Order Added by Discern Expert. Performed By: #### 2 874893, [id number], 0118030, 36514985, [id number], 7764774, [id number] #### [facility] [address] [place] [address] Platelets Large LM Ql (Bld) Present Normal [facility] Comment on above: Order Comment: Order Added by Discern Expert. Performed By: #### 2 092998, [id number], 0231562, [id number], [id number], 2568193, [id number] #### [facility] [address] [place] [address] Polychromasia LM Ql (Bld) Present Normal [facility] Comment on above: Order Comment: Order Added by Discern Expert. Performed By: #### 2 115141, [id number], 9661661, 53362364, [id number], 4376133, 78600057 #### [facility] [address] [place] [address] Progress Note-Physicianon Progress Note-Physician Patient: VIKAS GRIMALDO Age: 82 years Sex: Male : 1940 Associated Diagnoses: None Author: Helen ANAYA, [facility] Interval History No events overnight. Doing well. Review of Systems Constitutional: Negative except as documented in history of present illness. Eye: No double vision, No visual disturbances. Ear/Nose/Mouth/Throa t Respiratory: No shortness of breath, No cough, No sputum production, No hemoptysis. Cardiovascular: No chest pain, No palpitations. Gastrointestinal: No nausea, No vomiting, No diarrhea, No abdominal pain. Genitourinary: No dysuria, No hematuria. Hematology/Lymphatic s: No bleeding tendency, No swollen lymph glands. Endocrine: No excessive thirst, No polyuria, No cold intolerance, No heat intolerance. Immunologic: No recurrent fevers, No recurrent infections. Musculoskeletal: No neck pain, No joint pain, No muscle pain. Integumentary: No rash, No pruritus, No skin lesion. Neurologic: Alert and oriented X4, No numbness, No tingling. Psychiatric: No anxiety, No depression, No maria t. Health Status Allergies: Allergic Reactions (Selected) No Known Allergies, Allergies (1) Active Reaction No Known Allergies None Documented Current medications: (Selected) Inpatient Medications Ordered Procardia: 60 mg = 2 tab(s), Tab-ER, Oral, Daily, NOW, Start date 10/01/23 13:21:00 EST Zofran 4 mg/2 mL Injection: 4 mg = 2 mL, Injection, IV Push, q6hr PRN Nausea, Routine, Start date 09/29/23 19:49:00 EST, 09/29/23 19:49:00 EST acetaminophen 325 mg Tab: 650 mg = 2 tab(s), Tab, Oral, q6hr PRN Pain, Routine, Start date 09/29/23 19:49:00 EST, 09/29/23 19:49:00 EST cefepime additive + Sodium Chloride 0.9% intravenous solution 50 mL: 2,000 mg = 1 EA, Injection, IV Piggyback, q12hr, Stop date 10/05/23 11:59:00 EST, Routine, Start date 10/02/23 12:00:00 EST, 100 mL/hr, Infuse over 30 minute(s) chlorthalidone 25 mg Tab: 25 mg = 1 tab(s), Tab, Oral, Daily, NOW, Start date 10/02/23 12:31:00 EST, 10/02/23 12:31:00 EST heparin 5000 units/mL Inj: 5,000 unit(s) = 1 mL, Injection, SubCutaneous, BID for 30 day(s), Stop date 10/29/23 20:59:00 EST, Routine, Start date 09/29/23 21:00:00 EST, 09/29/23 19:49:00 EST iron sucrose additive + Sodium Chloride 0.9% intravenous solution 250 mL: 300 mg = 15 mL, Soln-IV, IV Piggyback, Daily for 3 dose(s), Stop date 10/04/23 8:59:00 EST, Routine, Start date 10/01/23 12:00:00 EST, 176.67 mL/hr, Infuse over 1.5 hour(s) labetalol 5 mg/mL IV Viki: 20 mg = 4 mL, Injection, IV Push, q6hr PRN Other (see comment) for 30 day(s), Stop date 10/31/23 18:24:00 EST, NOW, Start date 10/01/23 18:25:00 EST, 10/01/23 18:25:00 EST morphine 2 mg/mL Inj: 2 mg = 1 mL, Injection, IV Push, q4hr PRN Pain for 5 day(s), Stop date 10/04/23 19:48:00 EST, Routine, Start date 09/29/23 19:49:00 EST, 09/29/23 19:49:00 EST Prescriptions Prescribed Augmentin 875 mg-125 mg Tab: 1 tab(s), Oral, q12hr for 14 day(s), 28 tab(s), Refill(s) 0, [facility], 167, cm, 09/29/23 16:31:00 EST, Height/Length Dosing, 62, kg, 09/29/23 16:31:00 EST, Weight Dosing NIFEdipine 60 mg ER Tab: 60 mg = 1 tab(s), Oral, Daily, # 30 tab(s), Refills(s) 0, Pharmacy: [facility], 167, cm, 09/29/23 16:31:00 EST, Height/Length Dosing, 62, kg, 09/29/23 16:31:00 EST, Weight Dosing chlorthalidone 25 mg Tab: 25 mg = 1 tab(s), Oral, Daily, # 30 tab(s), Refills(s) 0, Pharmacy: [facility], 167, cm, 09/29/23 16:31:00 EST, Height/Length Dosing, 62, kg, 09/29/23 16:31:00 EST, Weight Dosing ferrous sulfate 325 mg Tab: 325 mg = 1 tab(s), Oral, Every other day, # 30 tab(s), Refills(s) 0, Pharmacy: [facility], 167, cm, 09/29/23 16:31:00 EST, Height/Length Dosing, 62, kg, 09/29/23 16:31:00 EST, Weight Dosing Documented Medications Documented aspirin 81 mg Oral EC Tab: 81 mg = 1 tab(s), Oral, Daily, Refills(s) 0 multivitamin: 1 tab, Oral, Daily, Refill(s) 0, Home Medications (6) Active aspirin 81 mg Oral EC Tab 81 mg = 1 tab(s), Oral, Daily Augmentin 875 mg-125 mg Tab 1 tab(s), Oral, q12hr chlorthalidone 25 mg Tab 25 mg = 1 tab(s), Oral, Daily ferrous sulfate 325 mg Tab 325 mg = 1 tab(s), Oral, Every other day multivitamin 1 tab, Oral, Daily NIFEdipine 60 mg ER Tab 60 mg = 1 tab(s), Oral, Daily , Medications (9) Active Scheduled: (5) cefepime + Sodium Chloride 0.9% Minibag 50 mL 2,000 mg 1 EA, IV Piggyback, q12hr chlorthalidone 25 mg Tab [F] 25 mg 1 tab(s), Oral, Daily heparin 5,000 units/mL Inj [F] 5,000 unit(s) 1 mL, SubCutaneous, BID iron sucrose (Venofer) + Sodium Chloride 0.9% 250 mL 300 mg 15 mL, IV Piggyback, Daily NIFEdipine 30 mg ER Tab [F] 60 mg 2 tab(s), Oral, Daily Continuous: (0) PRN: (4) acetaminophen 325 mg Tab UD [F] 650 mg 2 tab(s), Oral, q6hr labetalol 5 mg/mL IV Viki 4 mL [F] 20 mg 4 mL, IV Push, q6hr morphine 2 mg/mL preservative-free SOLN [F] 2 mg 1 mL, IV Push, q4hr ondansetron 2 mg/mL Inj [F] 4 mg 2 mL, IV Push, q6hr (more content not included)... Normal [facility] Comment on above: Result Comment: Elec tronically Signed By: Helen ANAYA, Manav\.br\Date and Time Signed: 10/03/23 15:05 EST Progress Note-Physician Patient: VIKAS GRIMALDO Age: 82 years Sex: Male : 1940 Associated Diagnoses: None Author: Mildred Vasquez CNP Subjective No overnight events. Resting in bed with no complaints or concerns. Review of Systems 14 systems reviewed; pertinent negative and positives in HPI and assessment/plan. Health Status Allergies: Allergic Reactions (All) No Known Allergies Current medications: Home Medications (2) Active aspirin 81 mg Oral EC Tab 81 mg = 1 tab(s), Oral, Daily multivitamin 1 tab, Oral, Daily , Medications (8) Active Scheduled: (4) cefepime + Sodium Chloride 0.9% Minibag 50 mL 2,000 mg 1 EA, IV Piggyback, q12hr heparin 5,000 units/mL Inj [F] 5,000 unit(s) 1 mL, SubCutaneous, BID iron sucrose (Venofer) + Sodium Chloride 0.9% 250 mL 300 mg 15 mL, IV Piggyback, Daily NIFEdipine 30 mg ER Tab [F] 60 mg 2 tab(s), Oral, Daily Continuous: (0) PRN: (4) acetaminophen 325 mg Tab UD [F] 650 mg 2 tab(s), Oral, q6hr labetalol 5 mg/mL IV Viki 4 mL [F] 20 mg 4 mL, IV Push, q6hr morphine 2 mg/mL preservative-free SOLN [F] 2 mg 1 mL, IV Push, q4hr ondansetron 2 mg/mL Inj [F] 4 mg 2 mL, IV Push, q6hr Histories Past Medical History: No active or resolved past medical history items have been selected or recorded. Family History: No family history items have been selected or recorded. Procedure history: No active procedure history items have been selected or recorded. Social History Social & Psychosocial Habits Alcohol 09/30/2023 Use: Current Comment: vicente - 11/12/2018 16:Romy Lynch RN 09/30/2023 Use: Current Type: Beer Frequency: 1-2 times per year Comment: once in awhile - 09/29/2023 17:19 - Nancy Soto RN Substance Abuse 09/30/2023 Use: Current Comment: vicente - 11/12/2018 16:Romy Lynch RN 09/30/2023 Use: Current Comment: vicente - 09/29/2023 17:19 - Nancy Soto RN Tobacco 09/30/2023 Tobacco Use: Never (less than 100 in l Comment: vicente - 11/12/2018 16:Romy Lynch RN 09/30/2023 Tobacco Use: Former smoker, quit more . Objective Vital Signs (last 24 hrs) Last Charted Temp Axillary 36.3 DegC (OCT 02 11:) Heart Rate Peripheral 76 bpm (OCT 01 13:22) SBP H 147mmHg (OCT 02 11:) DBP 66 mmHg (OCT 02 11:) SpO2 90 % (OCT 02 11:40) Weight 69.3 kg (OCT 02 07:29) Intake and Output Fluid Balance Primitives 10/02/2023 5:00 EST Oral Intake 300 mL 10/02/2023 3:55 EST Urine Voided 175 mL 10/02/2023 0:35 EST Urine Voided 100 mL General: Alert and oriented, No acute distress. Eye: Pupils are equal, round and reactive to light, Normal conjunctiva. HENT: Oral mucosa is moist. Neck: Supple, Non-tender, No carotid bruit, No jugular venous distention. Respiratory: Lungs are clear to auscultation, Breath sounds are equal. Cardiovascular: Normal rate, Regular rhythm, No murmur, No gallop, Good pulses equal in all extremities, No edema, Lt Foot in dressing. Gastrointestinal: Soft, Non-tender, Non-distended, Normal bowel sounds. Genitourinary: No costovertebral angle tenderness. Integumentary: Warm, Dry. Neurologic: Alert, Oriented, Normal motor function, No focal deficits. Review / Management Results review: Lab results 10/02/2023 11:04 EST Vanco Pk 32 mcg/mL 10/02/2023 6:03 EST WBC 25.4 E9/L HI RBC 6.5 E12/L HI HGB 12.4 gm/dL LOW Hct 41.5 % MCV 64.0 fL LOW MCH 19.1 pg LOW MCHC 29.9 gm/dL LOW RDW 21.5 % HI Platelet 306.0 E9/L MPV 8.1 fL Neutro Auto 83.9 % HI Lymph Auto 1.8 % LOW [place] Auto 12.8 % Eos Auto 0.4 % Basophil Auto 1.1 % Neutro Absolute 21.3 E9/L HI Lymph Absolute 0.5 E9/L LOW [place] Absolute 3.3 E9/L HI Eos Absolute 0.1 E9/L Basophil Absolute 0.3 E9/L HI RBC Morph See Morphology Anisocytosis Present Microcyte Present Hypochromasia Present Ovalocytes Present Large Plt Present Glucose Lvl 94 mg/dL BUN 29 mg/dL HI Creatinine 1.5 mg/dL HI eGFR 47 mL/min/1.73 m2 LOW BUN/Creat Ratio 19 Sodium Lvl 139 mmol/L Potassium Lvl 3.9 mmol/L Chloride 114 mmol/L HI CO2 21 mmol/L AGAP 8 mEq/L Calcium Lvl 8.5 mg/dL LOW Magnesium 1.9 mg/dL 10/01/2023 6:13 EST WBC 26.5 E9/L HI RBC 6.2 E12/L HI HGB 12.3 gm/dL LOW Hct 39.9 % MCV 64.0 fL LOW MCH 19.8 pg LOW MCHC 31.0 gm/dL LOW RDW 21.6 % HI Platelet 587.0 E9/L HI MPV 6.6 fL Segs Man 90 % HI Band Man 1 % Lymph Man 1 % LOW Monocyte Man 5 % Eos Man 0 % Basophil Man 2 % [place] Man 1 % HI React Lymph Man 0 % Segs Abs Man 24.1 E9/L HI Lymph Abs Man 0.3 E9/L LOW [place] Abs Man 1.3 E9/L HI Eos Abs Man 0.0 E9/L Basophil Abs Man 0.5 E9/L HI RBC Morph See Morphology Anisocytosis Present Microcyte Present Hypochromasia Present Polychromasia Present Ovalocytes Present Large Plt Present Glucose Lvl 99 mg/dL BUN 33 mg/dL HI Creatinine 1.7 mg/dL HI eGFR 40 mL/min/1.73 m2 LOW BUN/Creat Ratio 19 Sodium Lvl 139 mmol/L (more content not included)... Normal [facility] Comment on above: Result Comment: Elec tronically Signed By: Mildred Vasquez CNP\.br\Date and Time Signed: 10/02/23 13:55 EST\.br\Electronically Co-Signed By: Manav Cervantes MD\.br\Date and Time Co-Signed: 10/03/23 15:03 EST eGFRon 10-03-2023 GFR/1.73 sq M.predicted among non-blacks MDRD (S/P/Bld) [Vol rate/Area] 56 mL/min/1.73 m2 Low >=59 [facility] Comment on above: Order Comment: Order added by Discern Expert. Result Comment: [employer] amado kidney disease could be indicated at eGFR's of less than 60 mL/min/1.73m2. Kidney failure is indicated at less than 15 mL/min/1.73m2. Performed By: #### 2 700092, 2406141, [id number], [id number] #### [facility] [address] [place] [address] Auto Diffon 10-02-2023 Basophils/100 WBC (Bld) 1.1 % Normal 0.0-2.0 [facility] Comment on above: Order Comment: Order Added by Discern Expert. Performed By: #### 2 616885, 5734281, 3863269, [id number] #### [facility] [address] [place] [address] Basophils/Leukocytes Auto (Bld) [Pure # fraction] 0.3 E9/L High 0.0-0.2 [facility] Comment on above: Order Comment: Order Added by Discern Expert. Performed By: #### 2 782905, 5666816, 1722370, [id number] #### [facility] [address] [place] [address] Eosinophils/100 WBC (Bld) 0.4 % Normal 0.0-8.0 [facility] Comment on above: Order Comment: Order Added by Discern Expert. Performed By: #### 2 084530, 3842626, 6282874, [id number] #### [facility] [address] [place] [address] Eosinophils/Leukocytes Auto (Bld) [Pure # fraction] 0.1 E9/L Normal 0.0-0.5 [facility] Comment on above: Order Comment: Order Added by Discern Expert. Performed By: #### 2 951579, 0396510, 8927520, 13354910 #### [facility] [address] [place] [address] Lymphocytes/100 WBC (Bld) 1.8 % Low 14.0-50.0 [facility] Comment on above: Order Comment: Order Added by Discern Expert. Performed By: #### 2 647779, 1483115, 8232824, [id number] #### [facility] [address] [place] [address] Lymphocytes/Leukocytes Auto (Bld) [Pure # fraction] 0.5 E9/L Low 1.0-4.0 [facility] Comment on above: Order Comment: Order Added by Discern Expert. Performed By: #### 2 673073, 6857089, 7190956, 65241587 #### [facility] [address] [place] [address] Monocytes/100 WBC (Bld) 12.8 % Normal 4.0-14.0 [facility] Comment on above: Order Comment: Order Added by Discern Expert. Performed By: #### 2 581216, 2433068, 2885582, [id number] #### [facility] [address] [place] [address] Monocytes/Leukocytes Auto (Bld) [Pure # fraction] 3.3 E9/L High 0.2-1.0 [facility] Comment on above: Order Comment: Order Added by Discern Expert. Performed By: #### 2 893286, 8993142, 0251709, [id number] #### [facility] [address] [place] [address] Neutrophils/100 WBC (Bld) 83.9 % High 36.0-75.0 [facility] Comment on above: Order Comment: Order Added by Discern Expert. Performed By: #### 2 553310, 2417557, 7271168, 02687029 #### [facility] [address] [place] [address] Neutrophils/Leukocytes Auto (Bld) [Pure # fraction] 21.3 E9/L High 2.0-7.5 [facility] Comment on above: Order Comment: Order Added by Discern Expert. Performed By: #### 2 609521, 4059637, 6752352, [id number] #### [facility] [address] [place] [address] BMPon 10-02-2023 Anion gap [Moles/Vol] 8 mmol/L Normal 6-16 [facility] Comment on above: Performed By: #### 2 748499, 3509890, 1307089, 61431630 #### [facility] [address] [place] [address] Calcium [Mass/Vol] 8.5 mg/dL Low 8.9-11.1 [facility] Comment on above: Performed By: #### 2 635331, 3607899, 5424811, 99292217 #### [facility] [address] [place] [address] Chloride [Moles/Vol] 114 mmol/L High 101-111 [facility] Comment on above: Performed By: #### 2 650629, 1939252, 1439184, [id number] #### [facility] [address] [place] [address] CO2 [Moles/Vol] 21 mmol/L Normal 21-31 [facility] Comment on above: Performed By: #### 2 615116, 7812910, 2476081, [id number] #### [facility] [address] [place] [address] Creatinine [Mass/Vol] 1.5 mg/dL High 0.5-1.3 [facility] Comment on above: Performed By: #### 2 329866, 7255532, 3786604, 58696951 #### [facility] [address] [place] [address] Glucose [Mass/Vol] 94 mg/dL Normal 55-199 [facility] Comment on above: Result Comment: If t his glucose result represents a fasting glucose, interpretation should refer to the following reference range: 55-99 mg/dL Performed By: #### 2 477410, 1153439, 2668191, [id number] #### [facility] [address] [place] [address] Potassium [Moles/Vol] 3.9 mmol/L Normal 3.5-5.3 [facility] Comment on above: Performed By: #### 2 533881, 9982796, 7106371, 31703815 #### [facility] [address] [place] [address] Sodium [Moles/Vol] 139 mmol/L Normal 135-145 [facility] Comment on above: Performed By: #### 2 636238, 9868928, 3341300, 21051484 #### [facility] [address] [place] [address] Urea nitrogen [Mass/Vol] 29 mg/dL High 5-21 [facility] Comment on above: Performed By: #### 2 892682, 9599456, 3462053, 93830068 #### [facility] [address] [id number] Urea nitrogen/Creatinine [Mass ratio] 19 No Units Normal 10-20 [facility] Comment on above: Performed By: #### 2 224864, 3309370, 4079153, [id number] #### [facility] [address] [place], [place] [id number] CBC w/ Auto Diffon 3 Erythrocyte distribution width (RBC) [Ratio] 21.5 % High 10.9-14.2 [facility] Comment on above: Performed By: #### 2 605538, 1772067, 2299721, 89024399 #### [facility] [address] [place] [address] Hematocrit (Bld) [Volume fraction] 41.5 % Normal 37.7-49.0 [facility] Comment on above: Performed By: #### 2 506055, 0685656, 6070321, 25739749 #### [facility] [address] [place] [address] Hemoglobin (Bld) [Mass/Vol] 12.4 g/dL Low 13.5-17.5 [facility] Comment on above: Performed By: #### 2 216080, 2970108, 5009991, 08906383 #### [facility] [address] [place] [address] MCH (RBC) [Entitic mass] 19.1 pg Low 27.0-34.0 [facility] Comment on above: Performed By: #### 2 883444, 9737221, 8889324, 61627677 #### [facility] [address] [place] [address] MCHC (RBC) [Mass/Vol] 29.9 g/dL Low 31.4-36.0 [facility] Comment on above: Performed By: #### 2 381326, 9417666, 4060749, 78309580 #### [facility] [address] [place] [address] MCV (RBC) [Entitic vol] 64.0 fL Low 80.0-100.0 [facility] Comment on above: Performed By: #### 2 559930, 5415517, 3174426, 32724812 #### [facility] [address] [place] [address] Platelet mean volume (Bld) [Entitic vol] 8.1 fL Normal 6.4-10.8 [facility] Comment on above: Performed By: #### 2 075800, 5679747, 1018538, 37890689 #### [facility] [address] [place] [address] Platelets (Bld) [#/Vol] 306.0 E9/L Normal 150.0-500.0 [facility] Comment on above: Performed By: #### 2 122026, 2597719, 6141931, 65968329 #### [facility] [address] [place] [address] RBC (Bld) [#/Vol] 6.5 E12/L High 4.3-5.9 [facility] Comment on above: Performed By: #### 2 441770, 4033720, 7078014, 06016256 #### [facility] [address] [place] [address] WBC corrected for nucl RBC Auto (Bld) [#/Vol] 25.4 E9/L High 4.0-11.0 [facility] Comment on above: Performed By: #### 2 885286, 1004812, 0885064, [id number] #### [facility] [address] [place] [address] CHEMISTRYOrdered By: SYSTEM SYSTEM on 10-02-2023 Vancomycin peak [Moles/Vol] 32 microgram/mL Normal 20 - 40 mcg/mL [facility] Anion gap [Moles/Vol] 8 mmol/L Normal 6 - 16 mEq/L [facility] Calcium [Mass/Vol] 8.5 mg/dL Low 8.9 - 11. 1 mg/dL [facility] Chloride [Moles/Vol] 114 mmol/L High 101 - 1 11 mmol/L [facility] CO2 [Moles/Vol] 21 mmol/L Normal 21 - 31 mmol/L [facility] Creatinine [Mass/Vol] 1.5 mg/dL High 0.5 - 1.3 mg/dL [facility] GFR/1.73 sq M.predicted among non-blacks MDRD (S/P/Bld) [Vol rate/Area] 47 mL/min/1.73 m2 Low >=59mL/min/1 .73 m2 [facility] S Comment on above: Interpretive Data: C hronic kidney disease could be indicated at eGFR's of less than 60 mL/min/1.73m2. Kidney failure is indicated at less than 15 mL/min/1.73m2. Glucose [Mass/Vol] 94 mg/dL Normal 55 - 199 mg/dL [facility] Comment on above: Interpretive Data: I f this glucose result represents a fasting glucose, interpretation should refer to the following reference range: 55-99 mg/dL Magnesium [Mass/Vol] 1.9 mg/dL Normal 1.3 - 2 .4 mg/dL [facility] Potassium [Moles/Vol] 3.9 mmol/L Normal 3.5 - 5.3 mmol/L [facility] Sodium [Moles/Vol] 139 mmol/L Normal 135 - 145 mmol/L [facility] Urea nitrogen [Mass/Vol] 29 mg/dL High 5 - 21 mg/d L [facility] Urea nitrogen/Creatinine [Mass ratio] 19 mg/mg Normal 10 - 20 [facility] HEMATOLOGYOrdered By: Lindsay Caal on 10-02-2023 Anisocytosis Ql (Bld) Present (10/02/23 6:03 AM) Normal [facility] Erythrocyte distribution width (RBC) [Ratio] 21.5 % High 10.9 - 14.2 % [facility] Hematocrit (Bld) [Volume fraction] 41.5 % Normal 37.7 - 49.0 % [facility] Hemoglobin (Bld) [Mass/Vol] 12.4 g/dL Low 13.5 - 17.5 gm/dL [facility] Hypochromia Auto Ql (Bld) Present (10/02/23 6:03 AM) Normal [facility] MCH (RBC) [Entitic mass] 19.1 pg Low 27. 0 - 34.0 pg [facility] MCHC (RBC) [Mass/Vol] 29.9 g/dL Low 31.4 - 36.0 gm/dL [facility] MCV (RBC) [Entitic vol] 64.0 fL Low 80.0 - 100.0 fL [facility] Microcytes Ql (Bld) Present (10/02/23 6:03 AM) Normal [facility] Morphology Panfilo (Bld) [Interp] See Morphology (10/02/23 6:03 AM) Normal [facility] Ovalocytes LM Ql (Bld) Present (10/02/23 6:03 AM) Normal [facility] Platelet mean volume (Bld) [Entitic vol] 8.1 fL Normal 6.4 - 10.8 fL [facility] Platelets (Bld) [#/Vol] 306.0 E9/L Normal 150. 0 - 500.0 E9/L [facility] Platelets Large LM Ql (Bld) Present (10/02/23 6:03 AM) Normal [facility] RBC (Bld) [#/Vol] 6.5 E12/L High 4.3 - 5.9 E12/L [facility] WBC corrected for nucl RBC Auto (Bld) [#/Vol] 25.4 E9/L High 4.0 - 11.0 E9/L [facility] HEMATOLOGYOrdered By: SYSTEM SYSTEM on 10-02-2023 Basophils/100 WBC (Bld) 1.1 % Normal 0.0 - 2.0 % [facility] Basophils/Leukocytes Auto (Bld) [Pure # fraction] 0.3 E9/L High 0.0 - 0.2 E9/L [facility] Eosinophils/100 WBC (Bld) 0.4 % Normal 0.0 - 8.0 % [facility] Eosinophils/Leukocytes Auto (Bld) [Pure # fraction] 0.1 E9/L Normal 0.0 - 0.5 E9/L [facility] Lymphocytes/100 WBC (Bld) 1.8 % Low 14.0 - 50.0 % [facility] Lymphocytes/Leukocytes Auto (Bld) [Pure # fraction] 0.5 E9/L Low 1.0 - 4.0 E9/L [facility] Monocytes/100 WBC (Bld) 12.8 % Normal 4.0 - 14.0 % [facility] Monocytes/Leukocytes Auto (Bld) [Pure # fraction] 3.3 E9/L High 0.2 - 1.0 E9/L [facility] Neutrophils/100 WBC (Bld) 83.9 % High 36.0 - 75.0 % [facility] Neutrophils/Leukocytes Auto (Bld) [Pure # fraction] 21.3 E9/L High 2.0 - 7.5 E9/L [facility] MRSA Screenon 10-02-2023 MRSA DNA CONNOR+probe Ql (Unsp spec) Microbiology PROCEDURE: MRSA Screen [R1] SOURCE: Nasal BODY SITE: COLLECTED DATE/TIME: 09/30/2023 11:20 EST RECEIVED DATE/TIME: 09/30/2023 13:39 EST START DATE/TIME: 09/30/2023 13:39 EST FREE TEXT SOURCE: Keyon ANAYA, Riaza Ta MD, Raiza FINAL REPORTS Final Report [] Verified Date/Time: 10/02/2023 10:53 EST MRSA Negative. Performing Locations R1: This test was performed at: [facility], [address] [place] [address], [id number] , , [facility] Comment on above: Performed By: #### 2 [id number], [id number], [id number], [id number] #### [facility] [address] [place] [address] Magnesiumon 10-02-2023 Magnesium [Mass/Vol] 1.9 mg/dL Normal 1.3-2.[address] [facility] Comment on above: Performed By: #### 2 [id number], [id number], [id number] #### [facility] [address] [place] [address] Main OR Intraoperative Recor don 10-02-2023 Main OR Intraoperative Record IntraOp Document Type FT Summary Primary Physician: Vinod Quinteros DPM Finalized Date/Time: 10/02/23 11:56:40 Pt. Name: VIKAS GRIMALDO Dorothy Hoffman/Sex: 1940 Male Med Rec #: [id number] Physician: Sonya Dee MD Financial #: [id number] Pt. Type: I Room/Bed: [place] [address] Admit/Disch: 09/29/23 16:15:49 - Institution: Case Times FT Entry 1 Patient Times In Room 09/30/23 16:38:00 Out Room 09/30/23 17:19:00 Procedure Times Start 09/30/23 16:55:00 Stop 09/30/23 17:13:00 Anesthesia Times Start 09/30/23 16:38:00 Stop 09/30/23 17:19:00 Last Modified By: Gwendolyn Willis Ii 09/30/23 17:22:17 General Comments: 10/02/23 Chart opened to review and send charges LRoth CSFA Case Attendance FT Entry 1 Entry 2 Entry 3 Case Attendee Rae TIDWELL, Rodney Quinteros DPM, Jenna Troncoso A Role Performed Anesthesiologist Surgeon - Primary Scrub - Primary Correctional Therapy Teacher Time In 09/30/23 16:38:00 09/30/23 16:38:00 09/30/23 16:38:00 Time Out 09/30/23 17:19:00 09/30/23 17:19:00 09/30/23 17:00:00 Procedure FOOT I and D OF FOOT I and D OF FOOT I and D OF WOUND(Left) WOUND(Left) WOUND(Left) Comments 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 Last Modified By: Gwendolyn Willis Ii Alfons Ii F Cindyron, Alfons Ii F 09/30/23 17:22:19 09/30/23 17:22:19 09/30/23 17:22:19 Entry 4 Entry 5 Entry 6 Case Attendee Ellie Rajan Alfons Ii Shari Santana Role Performed Scrub - Relief Quilting Machine Operator - Primary Quilting Machine Operator - Relief Time In 09/30/23 17:00:00 09/30/23 16:38:00 09/30/23 16:38:00 Time Out 09/30/23 17:19:00 09/30/23 17:09:00 09/30/23 17:19:00 Procedure FOOT I and D OF FOOT I and D OF FOOT I and D OF WOUND(Left) WOUND(Left) WOUND(Left) Comments Last Modified By: Gwendolyn Willis Ii F Alba Alfons Ii F Cindyrondo, Alfons Ii F 09/30/23 17:22:19 09/30/23 17:22:19 09/30/23 17:22:19 Perioperative Protocols FT Pre-Care Text: Implements protective measures prior to operative or invasive procedure, confirms identity before the operative or invasive procedure, verifies operative procedure, surgical site, and laterality Entry 1 Procedure(s) FOOT I and D OF Patient Identity Birthday, ID Band WOUND(Left) Verified (select at Check, Patient least 2): Participation Consents / H and P Anesthesia Consent, Operative Site Present Verified HandP, Surgery/Procedure Marking Verified Consent Surgical Site Yes Laterality Verified Yes Verified Procedure Verified Yes Correct Patient Yes Position Verified Availability Equipment, Medication Prep Dry No Verified (If Applicable) PreOp Antibiotic No Time Out Jenna Aguiar, Given Participants Ellie Rajan, Gwendolyn Willis Ii, Rodney Schroeder Dolce DPM, Vinod Grossman Time Out Complete 09/30/23 16:54:00 Outcomes Met? Yes Last Modified By: Shari Rosa 09/30/23 17:24:26 Post-Care Text: The patient is free from signs and symptoms of injury caused by extraneous objects Allergy Information FT Pre-Care Text: Verifies allergies Entry 1 Allergies Reviewed? Yes Allergies Reviewed Self/Patient With Outcomes Met? Yes Last Modified By: Gwendolyn Willis Ii 09/30/23 17:02:28 Post-Care Text: The patient received appropriate medication(s) safely administered during the perioperative period Surgical Procedures FT Entry 1 Procedure Description Procedure FOOT I and D OF WOUND Modifiers Left Surgeon Description I AND D OF LEFT FOOT WITH REMOVAL OF TISSUE Primary Procedure Yes Primary Surgeon Vinod Quinteros DPM Start 09/30/23 16:55:00 Stop 09/30/23 17:13:00 Anesthesia Type General Surgical Service Podiatry Wound Class 2 - Clean-Contaminated Last Modified By: Shari Rosa 09/30/23 17:25:06 General Case Data FT Pre-Care Text: Classifies surgical wound, implements aseptic technique, initiates traffic control Entry 1 Case Information OR OR 4 FT Case Level Level 2 Wound Class 2 - Clean-Contaminated Specialty Podiatry ASA Class 3 Preop Diagnosis RED HOT SWOLLEN DORSAL Postop Same As Preop Yes LEFT FOOT Postop Diagnosis RED HOT SWOLLEN DORSAL Outcomes Met? Yes LEFT FOOT Last Modified By: Shari Rosa 09/30/23 17:25:57 Post-Care Text: The patient is free from signs and symptoms of infection Skin Assessment (Pre Procedure) FT Pre-Care Text: Implements protective measures to prevent skin/ tissue injury due to thermal or mechanical sources Evaluates for signs and symptoms of physical injury to skin and tissue Entry 1 Skin Integrity Intact, [place], Warm, and Skin Abnormality Yes Dry Abnormality Location Left foot Abnormality Type redness and swelling Outcomes Met? Yes Last Modified By: Gwendolyn Willis Ii 09/30/23 17:03:01 Post-Care Text: The patient is free from signs and symptoms of injury caused by extraneous objects Patient Positioning FT Pre-Care Text: Identifies physical alterations that require additional precautions for proc (more content not included)... Normal [facility] Monitor Recordon 10-02-2023 Monitor Record [id number] 4#1.00TIFF Normal [facility] Monitor Record [id number] 5#1.00TIFF Normal [facility] Morphon 10-02-2023 Anisocytosis Ql (Bld) Present Normal [facility] Comment on above: Order Comment: Order Added by Discern Expert. Performed By: #### 2 [id number], [id number], [id number], [id number] #### [facility] [address] [place] [address] Hypochromia Auto Ql (Bld) Present Normal [facility] Comment on above: Order Comment: Order Added by Discern Expert. Performed By: #### 2 [id number], [id number], [id number], [id number] #### [facility] [address] [place] [address] Microcytes Ql (Bld) Present Normal [facility] Comment on above: Order Comment: Order Added by Discern Expert. Performed By: #### 2 [id number], [id number], [id number], [id number] #### [facility] [address] [place] [address] Morphology Panfilo (Bld) [Interp] See Morphology Normal [facility] Comment on above: Order Comment: Order Added by Discern Expert. Performed By: #### 2 [id number], [id number], [id number], [id number] #### [facility] [address] [facility] [place] [address] Ovalocytes LM Ql (Bld) Present Normal [facility] Comment on above: Order Comment: Order Added by Discern Expert. Performed By: #### 2 [id number], [id number], [id number], [id number] #### [facility] [address] [place] [address] Platelets Large LM Ql (Bld) Present Normal [facility] Comment on above: Order Comment: Order Added by Discern Expert. Performed By: #### 2 [id number], [id number], [id number], [id number] #### [facility] [address] [place] [address] Operative Reporton 3 Operative Report SURGERY DATE: 09/30/2023 REPAIRER GENERAL: None PREOPERATIVE DIAGNOSES: 1. Abscess dorsal aspect left foot multiple areas 2. Non-healing wound dorsal aspect left foot POSTOPERATIVE DIAGNOSES: 1. Abscess dorsal aspect left foot multiple areas 2. Non-healing wound dorsal aspect left foot OPERATION: 1. Incision and drainage multiple areas left foot dorsally 2. Wound excision with delayed primary closure of wound left foot ANESTHESIA: General with local sedation 10 cc of 2% lidocaine plain METHOD OF IRRIGATION: 3,000 cc of normal sterile saline under pulse lavage irrigation CULTURES: Taken both pre and post irrigation cultures MATERIALS: 3-0 nylon COMPLICATIONS: None ESTIMATED BLOOD LOSS: Minimal HEMOSTASIS: None INDICATIONS FOR PROCEDURE: The patient presented to my office yesterday as a walk-in patient without an appointment claiming he had an abscess to the left foot. Denies a past medical history. He does not relate any areas of concern but upon examination had a large wound dorsal aspect of the left foot to the level of subcutaneous tissue which appeared to be a puncture type wound. Admitted the patient to the hospital for I.V. antibiotics. MRI reveals abscess, fluid collection dorsal aspect left foot. Planning to perform the above stated procedure. All possible risks and complications were explained to the patient including but not limited to pain, swelling, numbness, tingling, infection, need for additional surgery, recurrence of the condition, deep vein thrombosis, development of complex regional pain syndrome. The patient understood all possible risks and complications and has consented for the above stated procedure. PROCEDURE: The patient was taken from the Preoperative Holding Area, placed on the operating room table in a supine position. After administration of general anesthesia, the left foot was then prepped and draped in the usual sterile manner. At this time, after adequate prepping and draping, the dorsal aspect of the left foot was opened and a large amount of purulent drainage was noted as well as some hematoma that was also noted as well both proximal, distal, medial and laterally. The entire area was opened and excised with multiple areas. At this time, we exsanguinated a significant amount of purulence and hematoma of a serosanguineous type. We then irrigated the area under pulse lavage irrigation. Prior to that, culture and sensitivities were taken. The irrigation was performed with pulse lavage with 3,000 cc of normal sterile saline with 1 gm of vancomycin in the irrigant. The pulse lavage was removed. We re-prepped and draped the foot with Betadine and cultures and sensitivities were taken post irrigation. We then excised the ulceration to a nice clean tissue and then performed a delayed primary closure of the ulceration and the entire incision was also closed with 3-0 nylon. Dressing consisted of Betadine-soaked Adaptic, 4x4s, Tien, Kerlix and ABDs. The patient tolerated the procedure and anesthesia well, the left the Operating Room to Post-Anesthesia Care Unit with vital signs stable and vascular status intact. In the Post-Anesthesia Care Unit, he was given both oral and written home going instructions. Will continue with I.V. antibiotics, he will be seen as an outpatient. Infectious Disease also has been consulted. Vinod Quinteros DPM Dictated: 09/30/2023 [id number] Transcribed: 10/01/2023 Normal [facility] Comment on above: Result Comment: Elec tronically Signed By: Vinod Quinteros DPM\.br\Date and Time Signed: 10/02/23 11:20 EST Progress Note - Pharmacyon 1 12-02-2022 Progress Note - Pharmacy Vancomycin Phar kirstie to Dose Consult Note Indication: Skin and Skin Structure Infection Goal Range: AUC/ALY: 400 - 600 RECOMMENDATIONS/PLAN : Pharmacy consulted for vancomycin dosing for VIKAS GRIMALDO, a 82 Years old, Male who is being treated with vancomycin for abcess of the foot. 1. VANCO STATUS: Vancomycin therapy has been discontinued. Vancomycin level(s) have been discontinued. Pharmacy vancomycin dosing service will sign off. Thank you for allowing us to participate in this patient's care. Please contact pharmacy if there are questions. Normal [facility] Progress Note-Physicianon Progress Note-Physician Basic Informatio n 82 y/o M admitted for abscess of left foot Assessment/Plan Abscess of left foot -MRI obtained -Podiatry obtained -Awaiting I&D and cultures awaiting finalization -Cefepime 2/2 kidney -MRSA negative, d/c Vanc -Will touch base w/ID Thrombocytosis Iron def -Reactive? B12 and folate levels acceptable, Plts improving -IV iron noted -Heme/Onc consulted: out pt follow up with them in 2 weeks -CT chest abdomen pelvis, out pt follow up w/pulm for repeat CT chest findings JOSELINE BPH -CKD? JOSELINE? -Cefepime 2g q24hr 2/2 CrCl -Nephrology: appreciate input DVT PPX: heparin Time: 35 mins Plan: Await culture finalization Subjective The patient was seen and examined. States that he feels better No acute complaints Review of Systems The patient denies any fevers, chills, changes in vision, nausea, vomiting, chest pain, palpitations, chest tightness, wheezing, abdominal pain, lower limb swelling, blood in the commode Objective Vitals & Measurements T: 37 ?C(Axillary) TMIN: 36.6 ?C(Oral) TMAX: 37.1 ?C(Oral) HR: 76(Monitored) RR: 18 BP: 149/61 SpO2: 92% WT: 69.3 kg Intake & Output This visit (24 hour periods starting at 07:00 EST) 10/02/23 * 10/01/23 09/30/23 Total Summary Intake mL -- 2,271.82 3,478.62 Output mL -- 1,475 780 Fluid Balance -- 796.82 2,698.62 Intake (13) Lactated Ringers Injection mL -- -- 500 Lactated Ringers Injection 1,000 mL mL -- -- 50 Oral Intake mL -- 1,270 300 Sodium Chloride 0.9% intravenous solution 1,000 mL mL -- 686.81 2,269.42 Sodium Chloride 0.9%, cefepime mL -- 50 50 Sodium Chloride 0.9%, iron sucrose mL -- 265.01 -- Sodium Chloride 0.9%, piperacillin-tazobac de leon mL -- -- 36.2 Sodium Chloride 0.9%, vancomycin mL -- -- 250 dexamethasone mL -- -- 1 fentanyl mL -- -- 2 lidocaine mL -- -- 3 ondansetron mL -- -- 2 propofol mL -- -- 15 Total -- 2,271.82 3,478.62 Output (2) EBL Surgery mL -- -- 5 Urine Voided mL -- 1,475 775 Total -- 1,475 780 Counts (2) Stool Count -- -- -- Urine Count -- 1 -- * This column has not completed the indicated time period. Physical Exam General: alert, no acute distress Psychiatric: cooperative, affect appropriate for age Neurological: awake, alert, oriented, speech normal Cardiovascular: no overt murmurs Respiratory: no adventitious breath sounds Gastrointestinal: soft NT, NG, NR Extremities: no rash Lab Results WBC: 25.4 E9/L High (10/02/23 06:03:00) RBC: 6.5 E12/L High (10/02/23 06:03:00) HGB: 12.4 gm/dL Low (10/02/23 06:03:00) Hct: 41.5 % (10/02/23 06:03:00) MCV: 64 fL Low (10/02/23 06:03:00) MCH: 19.1 pg Low (10/02/23 06:03:00) MCHC: 29.9 gm/dL Low (10/02/23 06:03:00) RDW: 21.5 % High (10/02/23 06:03:00) Platelet: 306 E9/L (10/02/23 06:03:00) MPV: 8.1 fL (10/02/23 06:03:00) Neutro Auto: 83.9 % High (10/02/23 06:03:00) Lymph Auto: 1.8 % Low (10/02/23 06:03:00) Knox Auto: 12.8 % (10/02/23 06:03:00) Eos Auto: 0.4 % (10/02/23 06:03:00) Basophil Auto: 1.1 % (10/02/23 06:03:00) Neutro Absolute: 21.3 E9/L High (10/02/23 06:03:00) Lymph Absolute: 0.5 E9/L Low (10/02/23 06:03:00) Knox Absolute: 3.3 E9/L High (10/02/23 06:03:00) Eos Absolute: 0.1 E9/L (10/02/23 06:03:00) Basophil Absolute: 0.3 E9/L High (10/02/23 06:03:00) RBC Morph: See Morphology (10/02/23 06:03:00) Anisocytosis: Present (10/02/23 06:03:00) Microcyte: Present (10/02/23 06:03:00) Hypochromasia: Present (10/02/23 06:03:00) Ovalocytes: Present (10/02/23 06:03:00) Large Plt: Present (10/02/23 06:03:00) Glucose Lvl: 94 mg/dL (10/02/23 06:03:00) BUN: 29 mg/dL High (10/02/23 06:03:00) Creatinine: 1.5 mg/dL High (10/02/23 06:03:00) eGFR: 47 mL/min/1.73 m2 Low (10/02/23 06:03:00) BUN/Creat Ratio: 19 (10/02/23 06:03:00) Sodium Lvl: 139 mmol/L (10/02/23 06:03:00) Potassium Lvl: 3.9 mmol/L (10/02/23 06:03:00) Chloride: 114 mmol/L High (10/02/23 06:03:00) CO2: 21 mmol/L (10/02/23 06:03:00) AGAP: 8 mEq/L (10/02/23 06:03:00) Calcium Lvl: 8.5 mg/dL Low (10/02/23 06:03:00) Magnesium: 1.9 mg/dL (10/02/23 06:03:00) Problem List/Past Medical History Ongoing No qualifying data Historical No qualifying data Medications Inpatient acetaminophen 325 mg Tab, 650 mg= 2 tab(s), Oral, q6hr, PRN cefepime additive + Sodium Chloride 0.9% intravenous solution 50 mL heparin 5000 units/mL Inj, 5000 unit(s)= 1 mL, SubCutaneous, BID iron sucrose additive + Sodium Chloride 0.9% intravenous solution 250 mL labetalol 5 mg/mL IV Viki, 20 mg= 4 mL, IV Push, q6hr, PRN morphine 2 mg/mL Inj, 2 mg= 1 mL, IV Push, q4hr, PRN Procardia, 60 mg= 2 tab(s), Oral, Daily Zofran 4 mg/2 mL Injection, 4 mg= 2 mL, IV Push, q6hr, PRN Home aspirin 81 mg Oral EC Tab, 81 mg= 1 tab(s), Oral, Daily multivitamin, 1 tab, Oral, Daily Normal [facility] Comment on above: Result Comment: Elec tronically Signed By: Keyon ANAYARaiza\.br\Date and Time Signed: 10/02/23 11:29 EST Progress Note-Physician Patient: VIKAS GRIMALDO Age: 82 years Sex: Male : 1940 Associated Diagnoses: None Author: Ramiro Quinteros DPM Subjective pt seen bedside post op day 2 I&D left foot pt has continued leukocytosis slightly decreased from yesterday. Dr Vinod Grossman states not impressive abscess in OR more hematoma like. Endo consulted hematology. Health Status Allergies: Allergic Reactions (Selected) No Known Allergies Objective Dressing dry clean no signs of strike through Impression and Plan pt will continue to elevate protective weight bear with post op shoe agree with senior living until antibiotics are completed with picc line pending ID recs -pt will be seen post op in office next week. -dressing can be changed before discharge to senior living apply betadine to sutures gauze kerlix and celia with post op shoe Normal [facility] Comment on above: Result Comment: Elec tronically Signed By: Ramiro Quinteros DPM\.br\Date and Time Signed: 10/02/23 09:13 EST Vanco [place] 10-02-2023 VANCOMYCIN 32 microgram/mL Normal 20-40 [facility] Comment on above: Order Comment: sivakumar myers draw level one hour after vancomycin infusion Performed By: #### 2 [id number] ####[facility] [id number] [place] [address] eGFRon 10-02-2023 GFR/1.73 sq M.predicted among non-blacks MDRD (S/P/Bld) [Vol rate/Area] 47 mL/min/1.73 m2 Low >=59 [facility] Comment on above: Order Comment: Order added by Discern Expert. Result Comment: Barge Pilot amado kidney disease could be indicated at eGFR's of less than 60 mL/min/1.73m2. Kidney failure is indicated at less than 15 mL/min/1.73m2. Performed By: #### 2 [id number], [id number], [id number], [id number] #### [facility] [address] [place] [address] .Manual Abson 10-01-2023 Basophils/Leukocytes Manual cnt (Bld) [Pure # fraction] 0.5 E9/L High 0.0-0.2 [facility] Comment on above: Performed By: #### 2 [id number], [id number], 2428045, [id number], [id number], [id number], [id number] #### [facility] [address] [place] [address] Eosinophils/Leukocytes Manual cnt (Bld) [Pure # fraction] 0.0 E9/L Normal 0.0-0.5 [facility] Comment on above: Performed By: #### 2 [id number], [id number], 6038534, [id number], [id number], 0454639, [id number] #### [facility] [address] [place] [address] Lymphocytes/Leukocytes Manual cnt (Bld) [Pure # fraction] 0.3 E9/L Low 1.0-4.0 [facility] Comment on above: Performed By: #### 2 055469, [id number], 8124302, [id number], [id number], 5477503, [id number] #### [facility] [address] [place] [address] Monocytes/Leukocytes Manual cnt (Bld) [Pure # fraction] 1.3 E9/L High 0.2-1.0 [facility] Comment on above: Performed By: #### 2 [id number], 15979294, 2223583, 80175354, [id number], 2446742, [id number] #### [facility] [address] [place] [address] Neutrophils/Leukocytes Auto (Bld) [Pure # fraction] 24.1 E9/L High 2.0-7.5 [facility] Comment on above: Performed By: #### 2 375618, [id number], 6859629, 40828978, [id number], 1522295, [id number] #### [facility] [address] [place] [address] [facility] 10-01-2023 Anion gap [Moles/Vol] 5 mmol/L Low 6-16 [facility] Comment on above: Performed By: #### 2 639135, 31543137, 2641969, 11367575, [id number], 8305716, [id number] #### [facility] [address] [place] [address] Calcium [Mass/Vol] 8.3 mg/dL Low 8.9-11.1 [facility] Comment on above: Performed By: #### 2 050045, 54999653, 3488954, 46541891, 918004119, 2404043, [id number] #### [facility] [address] [place] [address] Chloride [Moles/Vol] 116 mmol/L High 101-111 [facility] Comment on above: Performed By: #### 2 214489, 61584485, 3594562, 76467050, [id number], 8769549, [id number] #### [facility] [address] [place] [address] CO2 [Moles/Vol] 22 mmol/L Normal 21-31 [facility] Comment on above: Performed By: #### 2 177768, [id number], 1219337, 10984509, [id number], 2407026, 10820535 #### [facility] [address] [place] [address] Creatinine [Mass/Vol] 1.7 mg/dL High 0.5-1.3 [facility] Comment on above: Performed By: #### 2 806296, [id number], 7930099, 23515255, [id number], 5990288, [id number] #### [facility] [address] [place] [address] Glucose [Mass/Vol] 99 mg/dL Normal 55-199 [facility] Comment on above: Result Comment: If t his glucose result represents a fasting glucose, interpretation should refer to the following reference range: 55-99 mg/dL Performed By: #### 2 [id number], [id number], 8421075, 61852195, [id number], 5560674, 71793049 #### [facility] [address] [place] [address] Potassium [Moles/Vol] 4.2 mmol/L Normal 3.5-5.3 [facility] Comment on above: Performed By: #### 2 503516, 76989359, 8264808, 61360270, [id number], 7825686, 44141681 #### [facility] [address] [place] [address] Sodium [Moles/Vol] 139 mmol/L Normal 135-145 [facility] Comment on above: Performed By: #### 2 142111, 41712164, 2078357, 16751066, 680862463, 5700143, 73693439 #### [facility] [address] [place] [address] Urea nitrogen [Mass/Vol] 33 mg/dL High 5-21 [facility] Comment on above: Performed By: #### 2 235787, 49661506, 4007578, 07628707, 681912204, 4043929, 22315480 #### [facility] [address] [place] [address] Urea nitrogen/Creatinine [Mass ratio] 19 No Units Normal 10-20 [facility] Comment on above: Performed By: #### 2 075636, 14538018, 8855138, 05932063, 815900427, 5319528, 67026600 #### [facility] [address] [place] [address] CBC w/ Auto Diffon 3 Erythrocyte distribution width (RBC) [Ratio] 21.6 % High 10.9-14.2 [facility] Comment on above: Performed By: #### 2 332250, 73452724, 2036924, 37039089, 742548835, 3976456, 22379664 #### [facility] [address] [place] [address] Hematocrit (Bld) [Volume fraction] 39.9 % Normal 37.7-49.0 [facility] Comment on above: Performed By: #### 2 168875, 51231231, 8066699, 94817532, 146106639, 5727246, 37349872 #### [facility] [address] [place] [address] Hemoglobin (Bld) [Mass/Vol] 12.3 g/dL Low 13.5-17.5 [facility] Comment on above: Performed By: #### 2 504045, 67495981, 1847853, 35680699, 034065860, 7229664, 20976554 #### [facility] [address] [place] [address] MCH (RBC) [Entitic mass] 19.8 pg Low 27.0-34.0 [facility] Comment on above: Performed By: #### 2 426389, 35520637, 7790791, 86689476, 860563428, 8566216, 98497450 #### [facility] [address] [place] [address] MCHC (RBC) [Mass/Vol] 31.0 g/dL Low 31.4-36.0 [facility] Comment on above: Performed By: #### 2 781577, 00517094, 7413834, 86769327, 320228624, 9395547, 68653124 #### [facility] [address] [place] [address] MCV (RBC) [Entitic vol] 64.0 fL Low 80.0-100.0 [facility] Comment on above: Performed By: #### 2 166982, 89926476, 2906097, 14962546, 740546420, 1394286, 20577513 #### [facility] [address] [place] [address] Platelet mean volume (Bld) [Entitic vol] 6.6 fL Normal 6.4-10.8 [facility] Comment on above: Performed By: #### 2 953701, 60376447, 4290170, 84520520, 096840376, 0827193, 59083143 #### [facility] [address] [place] [address] Platelets (Bld) [#/Vol] 587.0 E9/L High 150.0-500.0 [facility] Comment on above: Performed By: #### 2 397411, 35413576, 0998394, 11907264, 545163865, 9808003, 86462460 #### [facility] [address] [place] [address] RBC (Bld) [#/Vol] 6.2 E12/L High 4.3-5.9 [facility] Comment on above: Performed By: #### 2 854056, 01573481, 7869521, 62570400, 906813318, 2331458, 10032878 #### [facility] [address] [place] [address] WBC corrected for nucl RBC Auto (Bld) [#/Vol] 26.5 E9/L High 4.0-11.0 [facility] Comment on above: Performed By: #### 2 039231, 92387763, 2598797, 52447038, 674354725, 5548349, 56192184 #### [facility] [address] [place] [address] CHEMISTRYOrdered By: SYSTEM SYSTEM on 10-01-2023 Anion gap [Moles/Vol] 5 mmol/L Low 6 - 16 mEq/L [facility] Calcium [Mass/Vol] 8.3 mg/dL Low 8.9 - 11. 1 mg/dL [facility] Chloride [Moles/Vol] 116 mmol/L High 101 - 1 11 mmol/L [facility] CO2 [Moles/Vol] 22 mmol/L Normal 21 - 31 mmol/L [facility] Creatinine [Mass/Vol] 1.7 mg/dL High 0.5 - 1.3 mg/dL [facility] GFR/1.73 sq M.predicted among non-blacks MDRD (S/P/Bld) [Vol rate/Area] 40 mL/min/1.73 m2 Low >=59mL/min/1 .73 m2 [facility] Comment on above: Interpretive Data: C hronic kidney disease could be indicated at eGFR's of less than 60 mL/min/1.73m2. Kidney failure is indicated at less than 15 mL/min/1.73m2. Glucose [Mass/Vol] 99 mg/dL Normal 55 - 199 mg/dL [facility] Comment on above: Interpretive Data: I f this glucose result represents a fasting glucose, interpretation should refer to the following reference range: 55-99 mg/dL Magnesium [Mass/Vol] 2.0 mg/dL Normal 1.3 - 2 .4 mg/dL [facility] Potassium [Moles/Vol] 4.2 mmol/L Normal 3.5 - 5.3 mmol/L [facility] Sodium [Moles/Vol] 139 mmol/L Normal 135 - 145 mmol/L [facility] T4 [Mass/Vol] 7.1 ug/dL Normal 4.6 - 9.1 mcg/dL [facility] TSH Qn 16.05 m[IU]/L High 0.34 - 5.60 mcIU/mL [facility] Urea nitrogen [Mass/Vol] 33 mg/dL High 5 - 21 mg/d L [facility] Urea nitrogen/Creatinine [Mass ratio] 19 mg/mg Normal 10 - 20 [facility] CHEMISTRYOrdered By: Doug Alvarado on 10-01-2023 Osmolality [Osmolality] 302 mosm/kg High 275 - 295 mOsm/kg [facility] UA SS Coding Queryon 10-01-2023 Coding Query - From: Kerwin Small RN To: Keyon ANAYA, Raiza; Sent: 10/01/2023 10:42:04 EST ! Subject: Coding Query Due Date/Time: 10/02/2023 10:41:00 EST Caller Name: VIKAS GRIMALDO; Caller Number: H Documentation per a it infrastructure consultant in the medical record indicates this patient has been diagnosed as having: Venous stasis disease /cellulitis left foot The following is also documented in the medical record: 09/30 H&P (exam 09/29) Dr Quinteros: Vascular: Dorsalis pedis posterior tibial pulses are palpable bilateral, no edema noted. Significant venous stasis disease noted bilaterally. Derm: Cellulitis is localized to the dorsal aspect of the left foot. Slightly ascending. Based on your medical judgment of the documented diagnoses by the it infrastructure consultant, do you agree with the diagnosis? [___]Yes, I agree with the diagnosis documented by the it infrastructure consultant. [___]No, I do not agree with the diagnosis documented by the it infrastructure consultant. Reason: In responding to this request, please exercise your independent professional judgement. The fact that a question is asked does not imply that any particular answer is desired or expected. Thank you! kerwin [id number] - From: Raiza Ta MD To: Kerwin Small RN; Sent: 10/01/2023 14:05:25 EST Subject: RE: Coding Query Caller Name: VIKAS GRIMALDO; Caller Number: H Yes, I agree with the diagnosis documented by the it infrastructure consultant. [facility] Coding Query - From: Kerwin Small RN To: Raiza Ta MD; Sent: 10/01/2023 10:24:42 EST ! Subject: Coding Query Due Date/Time: 10/02/2023 10:24:00 EST Caller Name: VIKAS GRIMALDO; Caller Number: H Documentation per a it infrastructure consultant in the medical record indicates this patient has been diagnosed as having: sepsis The following is also documented in the medical record: 09/30 Oncology: Diagnosis Thrombocytosis ([id number] D75.839, Discharge, Medical). Abscess of left foot excluding toes ([id number] L02.612, Discharge, Medical). Iron deficiency (QFP27-WK E61.1, Working, Medical). Course: His thrombocytosis could be multifactorial but sepsis, his left foot severe infection can be the major cause of his thrombocytosis. Other potential contributing facotrs is his iron deficiency. We can not rule out essential thrombocytosis without checking his JAK2 with reflex panel. Based on your medical judgment of the documented diagnoses by the it infrastructure consultant, do you agree with the diagnosis? [___]Yes, I agree with the diagnosis documented by the it infrastructure consultant. [___]No, I do not agree with the diagnosis documented by the it infrastructure consultant. Reason: [___]Other: In responding to this request, please exercise your independent professional judgement. The fact that a question is asked does not imply that any particular answer is desired or expected. Thank you!kerwin [id number] - From: Keyon ANAYA, [facility] To: Kerwin Small RN; Sent: 10/01/2023 14:05:04 EST Subject: RE: Coding Query Caller Name: VIKAS GRIMALDO; Caller Number: H Yes, I agree with the diagnosis documented by the it infrastructure consultant. Normal [facility] Consent for Anesthesiaon Consent for Anesthesia [phone] [id number] [facility] Consultation Noteon 10-01-20 23 Consultation Note Patient: VIKAS GRIMALDO Age: 82 years Sex: Male : 1940 Associated Diagnoses: None Author: Helen ANAYA, [facility] Interval History 82 y/o male presents to the ED at the request of Dr Quinteros, podiatry, for left foot infection w/ possible surgical intervention. He states he does not take any prescribed medication at home. He states that earlier this year he dropped a piece of farm equipment on his foot. He was treating the injury w/ Epsom salt & states that the wound was improving. He wore work boots a few weeks ago & the boot rubbed the wound on the left foot causing it to worsen. He was able to be seen by podiatry today & Dr Quinteros sent him to the ED to be admitted. He does not have a PCP, nor has he seen a PCP in >8 years. He states that he is not aware if he has kidney disease but he did pass a kidney stone 10 years ago. Upon chart review his creatinine was normal in 2019. He does take ASA at bedtime for generalized pain. Nephrology was consulted for JOSELINE with Cr peak at 1.8mg/dl He underwent I&D of left foot abscess yesterday by podiatry. Review of Systems Constitutional: Negative except as documented in history of present illness. Eye: No double vision, No visual disturbances. Ear/Nose/Mouth/Throa t Respiratory: No shortness of breath, No cough, No sputum production, No hemoptysis. Cardiovascular: No chest pain, No palpitations. Gastrointestinal: No nausea, No vomiting, No diarrhea, No abdominal pain. Genitourinary: No dysuria, No hematuria. Hematology/Lymphatic s: No bleeding tendency, No swollen lymph glands. Endocrine: No excessive thirst, No polyuria, No cold intolerance, No heat intolerance. Immunologic: No recurrent fevers, No recurrent infections. Musculoskeletal: No neck pain, No joint pain, No muscle pain. Integumentary: No rash, No pruritus, No skin lesion. Neurologic: Alert and oriented X4, No numbness, No tingling. Psychiatric: No anxiety, No depression, No maria t. Health Status Allergies: Allergic Reactions (Selected) No Known Allergies, Allergies (1) Active Reaction No Known Allergies None Documented Current medications: (Selected) Inpatient Medications Ordered Lactated Ringers IV Viki 1000 mL 1,000 mL: 1,000 mL, IV, 150 mL/hr, Routine, Start date 09/30/23 7:20:00 EST, 6.7 hour(s), Total volume (mL): 1,000, 62 kg, 1.7, m2 Sodium Chloride 0.9% IV Viki 1000 mL 1,000 mL: 1,000 mL, IV, 150 mL/hr, Routine, Start date 09/29/23 19:47:00 EST, 6.7 hour(s), Total volume (mL): 1,000, 62 kg, 1.7, m2 Zofran 4 mg/2 mL Injection: 4 mg = 2 mL, Injection, IV Push, q6hr PRN Nausea, Routine, Start date 09/29/23 19:49:00 EST, 09/29/23 19:49:00 EST acetaminophen 325 mg Tab: 650 mg = 2 tab(s), Tab, Oral, q6hr PRN Pain, Routine, Start date 09/29/23 19:49:00 EST, 09/29/23 19:49:00 EST cefepime additive + Sodium Chloride 0.9% intravenous solution 50 mL: 2,000 mg = 1 EA, Injection, IV Piggyback, q24hr, Routine, Start date 09/30/23 12:00:00 EST, 100 mL/hr, Infuse over 30 minute(s) heparin 5000 units/mL Inj: 5,000 unit(s) = 1 mL, Injection, SubCutaneous, BID for 30 day(s), Stop date 10/29/23 20:59:00 EST, Routine, Start date 09/29/23 21:00:00 EST, 09/29/23 19:49:00 EST iron sucrose additive + Sodium Chloride 0.9% intravenous solution 250 mL: 300 mg = 15 mL, Soln-IV, IV Piggyback, Daily for 3 dose(s), Stop date 10/04/23 8:59:00 EST, Routine, Start date 10/01/23 12:00:00 EST, 176.67 mL/hr, Infuse over 1.5 hour(s) morphine 2 mg/mL Inj: 2 mg = 1 mL, Injection, IV Push, q4hr PRN Pain for 5 day(s), Stop date 10/04/23 19:48:00 EST, Routine, Start date 09/29/23 19:49:00 EST, 09/29/23 19:49:00 EST vancomycin + Sodium Chloride 0.9% intravenous solution 250 mL: Reason for Vancomycin: Other reason documented in physician not, 1,000 mg = 1 EA, Injection, IV Piggyback, q18hr, Start date 09/30/23 21:00:00 EST, Infuse over 60 minute(s) vancomycin IV PHARMACY TO DOSE: PHARMACY TO DOSE, Injection, IV, As Directed, Routine, Start date 09/29/23 19:44:00 EST Documented Medications Documented aspirin 81 mg Oral EC Tab: 81 mg = 1 tab(s), Oral, Daily, Refills(s) 0 multivitamin: 1 tab, Oral, Daily, Refill(s) 0, Home Medications (2) Active aspirin 81 mg Oral EC Tab 81 mg = 1 tab(s), Oral, Daily multivitamin 1 tab, Oral, Daily , Medications (10) Active Scheduled: (5) cefepime + Sodium Chloride 0.9% Minibag 50 mL 2,000 mg 1 EA, IV Piggyback, q24hr heparin 5,000 units/mL Inj [F] 5,000 unit(s) 1 mL, SubCutaneous, BID iron sucrose (Venofer) + Sodium Chloride 0.9% 250 mL 300 mg 15 mL, IV Piggyback, Daily vancomycin + Sodium Chloride 0.9% 250 mL 1,000 mg 1 EA, IV Piggyback, q18hr vancomycin PHARMACY TO DOSE [F] PHARMACY TO DOSE, IV, As Directed Continuous: (2) Lactated Ringers 1,000 mL 1,000 mL, IV, 150 mL/hr Sodium Chloride 0.9% 1,000 mL 1,000 mL, IV, 150 mL/hr PRN: (3) acetaminophen 325 mg Tab UD [F] 650 mg 2 tab(s), Oral, q6hr morphine 2 mg/mL preservative-free SOLN [F] 2 mg 1 mL, IV Push, q4hr (more content not included)... Normal [facility] Comment on above: Result Comment: Elec tronically Signed By: Helen ANAYA, Manav\.br\Date and Time Signed: 10/01/23 10:57 EST Consultation Note Patient: VIKAS GRIMALDO Age: 82 years Sex: Male : 1940 Associated Diagnoses: None Author: Mildred Vasquez CNP Basic Information Referring Provider: Hospitalist Reason for Referral: JOSELINE History of Present Illness 82 y/o male presents to the ED at the request of Dr Quinteros, podiatry, for left foot infection w/ possible surgical intervention. He states he does not take any prescribed medication at home. He states that earlier this year he dropped a piece of farm equipment on his foot. He was treating the injury w/ Epsom salt & states that the wound was improving. He wore work boots a few weeks ago & the boot rubbed the wound on the left foot causing it to worsen. He was able to be seen by podiatry today & Dr Quinteros sent him to the ED to be admitted. He does not have a PCP, nor has he seen a PCP in >8 years. He states that he is not aware if he has kidney disease but he did pass a kidney stone 10 years ago. Upon chart review his creatinine was normal in 2019. He does take ASA at bedtime for generalized pain. Nephrology was consulted for JOSELINE. Review of Systems 14 systems reviewed; pertinent negatives and positives in the HPI and Assessment/Plan. Health Status Allergies: Allergic Reactions (All) No Known Allergies, Allergies (1) Active Reaction No Known Allergies None Documented Current medications: (Selected) Inpatient Medications Ordered Lactated Ringers IV Viki 1000 mL 1,000 mL: 1,000 mL, IV, 150 mL/hr, Routine, Start date 09/30/23 7:20:00 EST, 6.7 hour(s), Total volume (mL): 1,000, 62 kg, 1.7, m2 Sodium Chloride 0.9% IV Viki 1000 mL 1,000 mL: 1,000 mL, IV, 150 mL/hr, Routine, Start date 09/29/23 19:47:00 EST, 6.7 hour(s), Total volume (mL): 1,000, 62 kg, 1.7, m2 Zofran 4 mg/2 mL Injection: 4 mg = 2 mL, Injection, IV Push, q6hr PRN Nausea, Routine, Start date 09/29/23 19:49:00 EST, 09/29/23 19:49:00 EST acetaminophen 325 mg Tab: 650 mg = 2 tab(s), Tab, Oral, q6hr PRN Pain, Routine, Start date 09/29/23 19:49:00 EST, 09/29/23 19:49:00 EST cefepime additive + Sodium Chloride 0.9% intravenous solution 50 mL: 2,000 mg = 1 EA, Injection, IV Piggyback, q24hr, Routine, Start date 09/30/23 12:00:00 EST, 100 mL/hr, Infuse over 30 minute(s) heparin 5000 units/mL Inj: 5,000 unit(s) = 1 mL, Injection, SubCutaneous, BID for 30 day(s), Stop date 10/29/23 20:59:00 EST, Routine, Start date 09/29/23 21:00:00 EST, 09/29/23 19:49:00 EST iron sucrose additive + Sodium Chloride 0.9% intravenous solution 250 mL: 300 mg = 15 mL, Soln-IV, IV Piggyback, Daily for 3 dose(s), Stop date 10/04/23 8:59:00 EST, Routine, Start date 10/01/23 12:00:00 EST, 176.67 mL/hr, Infuse over 1.5 hour(s) morphine 2 mg/mL Inj: 2 mg = 1 mL, Injection, IV Push, q4hr PRN Pain for 5 day(s), Stop date 10/04/23 19:48:00 EST, Routine, Start date 09/29/23 19:49:00 EST, 09/29/23 19:49:00 EST vancomycin IV PHARMACY TO DOSE: PHARMACY TO DOSE, Injection, IV, As Directed, Routine, Start date 09/29/23 19:44:00 EST Documented Medications Documented aspirin 81 mg Oral EC Tab: 81 mg = 1 tab(s), Oral, Daily, Refills(s) 0 multivitamin: 1 tab, Oral, Daily, Refill(s) 0, Medications (9) Active Scheduled: (4) cefepime + Sodium Chloride 0.9% Minibag 50 mL 2,000 mg 1 EA, IV Piggyback, q24hr heparin 5,000 units/mL Inj [F] 5,000 unit(s) 1 mL, SubCutaneous, BID iron sucrose (Venofer) + Sodium Chloride 0.9% 250 mL 300 mg 15 mL, IV Piggyback, Daily vancomycin PHARMACY TO DOSE [F] PHARMACY TO DOSE, IV, As Directed Continuous: (2) Lactated Ringers 1,000 mL 1,000 mL, IV, 150 mL/hr Sodium Chloride 0.9% 1,000 mL 1,000 mL, IV, 150 mL/hr PRN: (3) acetaminophen 325 mg Tab UD [F] 650 mg 2 tab(s), Oral, q6hr morphine 2 mg/mL preservative-free SOLN [F] 2 mg 1 mL, IV Push, q4hr ondansetron 2 mg/mL Inj [F] 4 mg 2 mL, IV Push, q6hr Problem list: No qualifying data available Histories Past Medical History: No active or resolved past medical history items have been selected or recorded. Family History: No family history items have been selected or recorded. Procedure history: No active procedure history items have been selected or recorded. Social History Social & Psychosocial Habits Alcohol 11/12/2018 Use: Current Comment: carolyn - 11/12/2018 16:05 - Romy Bella RN 09/29/2023 Use: Current Type: Beer Frequency: 1-2 times per year Comment: once in awhile - 09/29/2023 17:19 - Nancy Soto RN Substance Abuse 11/12/2018 Use: Current Comment: carolyn - 11/12/2018 16:05 - Romy Bella RN 09/29/2023 Use: Current Comment: carolyn - 09/29/2023 17:19 - Nancy Soto RN Tobacco 11/12/2018 Tobacco Use: Never (less than 100 in l Comment: vicente - 11/12/2018 16:05 - Romy Bella RN 09/29/2023 Tobacco Use: Former smoker, quit more . Physical Examination Intake and Output Fluid Balance Primitives 09/30/2023 12:03 EST Urine Voided 100 mL Vital Signs 09/30/2023 12:18 EST Hourly Rounding Y (more content not included)... Normal [facility] Comment on above: Result Comment: Elec tronically Signed By: Mildred Vasquez CNP\.br\Date and Time Signed: 09/30/23 13:45 EST\.br\Electronically Co-Signed By: Manav Cervantes MD\.br\Date and Time Co-Signed: 10/01/23 10:49 EST HEMATOLOGYOrdered By: Edwina Salas on 10-01-2023 Anisocytosis Ql (Bld) Present (10/01/23 6:13 AM) Normal [facility] Band form neutrophils/100 WBC (Bld) 1 % Normal 0 - 10 % [facility] Basophils/100 WBC (Bld) 2 % Normal 0 - 2 % [facility] Basophils/Leukocytes Manual cnt (Bld) [Pure # fraction] 0.5 E9/L High 0.0 - 0.2 E9/L [facility] Eosinophils/100 WBC (Bld) 0 % Normal 0 - 8 % [facility] Eosinophils/Leukocytes Manual cnt (Bld) [Pure # fraction] 0.0 E9/L Normal 0.0 - 0.5 E9/L [facility] Erythrocyte distribution width (RBC) [Ratio] 21.6 % High 10.9 - 14.2 % [facility] Hematocrit (Bld) [Volume fraction] 39.9 % Normal 37.7 - 49.0 % [facility] Hemoglobin (Bld) [Mass/Vol] 12.3 g/dL Low 13.5 - 17.5 gm/dL [facility] Hypochromia Auto Ql (Bld) Present (10/01/23 6:13 AM) Normal [facility] Lymphocytes/100 WBC (Bld) 1 % Low 14 - 50 % [facility] Lymphocytes/Leukocytes Manual cnt (Bld) [Pure # fraction] 0.3 E9/L Low 1.0 - 4.0 E9/L [facility] MCH (RBC) [Entitic mass] 19.8 pg Low 27. 0 - 34.0 pg [facility] MCHC (RBC) [Mass/Vol] 31.0 g/dL Low 31.4 - 36.0 gm/dL [facility] MCV (RBC) [Entitic vol] 64.0 fL Low 80.0 - 100.0 fL [facility] Metamyelocytes/Leukocyte s Manual cnt (Bld) [Pure # fraction] 1 % High <=0% [facility] Microcytes Ql (Bld) Present (10/01/23 6:13 AM) Normal [facility] Monocytes/100 WBC (Bld) 5 % Normal 4 - 14 % [facility] Monocytes/Leukocytes Manual cnt (Bld) [Pure # fraction] 1.3 E9/L High 0.2 - 1.0 E9/L [facility] Morphology Panfilo (Bld) [Interp] See Morphology (10/01/23 6:13 AM) Normal [facility] Neutrophils/Leukocytes Auto (Bld) [Pure # fraction] 24.1 E9/L High 2.0 - 7.5 E9/L [facility] Ovalocytes LM Ql (Bld) Present (10/01/23 6:13 AM) Normal [facility] Platelet mean volume (Bld) [Entitic vol] 6.6 fL Normal 6.4 - 10.8 fL [facility] Platelets (Bld) [#/Vol] 587.0 E9/L High 150. 0 - 500.0 E9/L [facility] Platelets Large LM Ql (Bld) Present (10/01/23 6:13 AM) Normal [facility] Polychromasia LM Ql (Bld) Present (10/01/23 6:13 AM) Normal [facility] RBC (Bld) [#/Vol] 6.2 E12/L High 4.3 - 5.9 E12/L [facility] Segmented neutrophils/100 WBC (Bld) 90 % High 36 - 75 % [facility] Variant lymphocytes LM Ql (Bld) 0 % Normal <=0% [facility] WBC corrected for nucl RBC Auto (Bld) [#/Vol] 26.5 E9/L High 4.0 - 11.0 E9/L [facility] Interdisciplinary Note - Shane n 10-01-2023 Interdisciplinary Note - OT OT AM-PAC six clicks score: =SNF. Main barriers towards Pt's safe and functional performance are generalized weakness and L LE NWB. Pt lives alone and has no DME at home. Pt completes ADL functional transfers Min A with FWW and mod verbal cues to maintain NWB. OT to follow daily, progressing as tolerates. SNF recommended to maximize Pt's safety and independence with all self care tasks. Normal [facility] Interdisciplinary Note - Soc ial Workerlucia 10-01-2023 Interdisciplinary Note - Workforce Planner This SW was consulted to see patient to discuss his living situation after some concerns were noted about his heating source and access to water. This SW spoke to patient and was informed that he has a wood burning stove that he uses as his primary heating source; due to being in the hospital he is unable to have the wood burning stove running so he is trying to keep the home warmed with his radiators. He is hopeful that this will be enough to keep his pipes from freezing. He states he also had to leave his basement door cracked so his cat could get in and out. Patient reports drinking and cooking only with bottled water due to the high level of nitrates in the well water. He does have running water, but if he needs hot water then he has to heats it on the stove. He reports that he recently got possession of the property in the last few years after everything was settled with some estates in the family; the home has had no upkeep in 50 years and he has not had time to do much other than put a new roof on the home. SW spoke to patient about the possible need for IV ATB and options for this. He is not agreeable to stating he doesn't know how it would work to try and do it at home. He did voice interest in possibly going to OP infusions and states that he does drives to that would not be an issue for him. After further discussion, he voiced that going to a senior living would probably be the best option if he has to have IV ATB. He does not have any family or friends available to assist him or to learn the IVs. SW asked if there was a certain senior living he would be interested in and he stated that [facility] would be the closest one to his home. Patient while agreeable to the referral to [facility] and the possibility of going there, voiced that he was hoping he could just return home and resume the Epsom salt soaks for his foot. He reports that throughout the years he has always treated his injuries with Epsom salts, hydrogen peroxide, and/or rubbing alcohol. SW let him know that referral would be sent to [facility], and staff would await the physician's recommendations prior to confirming all d/c plans. SW will remain available. Normal [facility] IntraOperative Documentson 12-01-2022 IntraOperative Documents [id number] 7#1.00TIFF Normal [facility] Lab Miscellaneous-LCon 10-01 Test Code 483807 Invalid Interpretation Code [facility] Comment on above: Order Comment: test codes:47826 & [id number] lav tubes Result Comment: Test code corrected. 10/01/2023 06:52:57 EST Performed By: #### 1 [id number] ####[facility] [address] [place] [address] Magnesiumon 10-01-2023 Magnesium [Mass/Vol] 2.0 mg/dL Normal 1.3-2.[address] [facility] Comment on above: Performed By: #### 2 661448, 97541278, 1920648, 45079491, 547464490, 9677063, 20814720 #### [facility] Laboratory [address] [place] [address] Manual Diffon 10-01-2023 Anisocytosis Ql (Bld) Present Normal Fis [facility] Comment on above: Order Comment: Order Added by Discern Expert. Performed By: #### 2 304514, 71219441, 6263759, 42321647, 986528428, 7128719, 81980445 #### [facility] Laboratory [address] [place] [address] Band form neutrophils/100 WBC (Bld) 1 % Normal 0-10 [facility] Comment on above: Order Comment: Order Added by Discern Expert. Performed By: #### 2 899499, 61317436, 7537961, 39728299, 920775341, 7291421, 85915418 #### [facility] Laboratory [address] [place] [address] Basophils/100 WBC (Bld) 2 % Normal 0-2 F [facility] Comment on above: Order Comment: Order Added by Discern Expert. Performed By: #### 2 717676, 60138297, 1119208, 09780626, 593193619, 6439407, 74453992 #### [facility] Laboratory [address] [place] [address] Eosinophils/100 WBC (Bld) 0 % Normal 0-8 [facility] Comment on above: Order Comment: Order Added by Discern Expert. Performed By: #### 2 189928, 46957983, 3993388, 59277472, 152844433, 7322154, 48224168 #### [facility] Laboratory [address] [place] [address] Hypochromia Auto Ql (Bld) Present Normal [facility] Comment on above: Order Comment: Order Added by Discern Expert. Performed By: #### 2 301181, 36123679, 4323504, 50646262, 567904940, 7646555, 03075864 #### [facility] Laboratory [address] [place] [address] Lymphocytes/100 WBC (Bld) 1 % Low 14-50 [facility] Comment on above: Order Comment: Order Added by Discern Expert. Performed By: #### 2 311054, 91389945, 9603362, 96241780, 311418088, 4467908, 55344050 #### [facility] Laboratory [address] [place] [address] Metamyelocytes/Leukocyte s Manual cnt (Bld) [Pure # fraction] 1 % High <=0 [facility] Comment on above: Order Comment: Order Added by Discern Expert. Performed By: #### 2 634510, 78212264, 8620687, 07353322, 313609495, 9888072, 94688818 #### [facility] Laboratory [address] [place] [address] Microcytes Ql (Bld) Present Normal [facility] Comment on above: Order Comment: Order Added by Discern Expert. Performed By: #### 2 630869, 56836859, 8544805, 06852223, 642114979, 4247600, 62690232 #### [facility] Laboratory [address] [place] [address] Monocytes/100 WBC (Bld) 5 % Normal 4-14 [facility] Comment on above: Order Comment: Order Added by Discern Expert. Performed By: #### 2 539478, 30471800, 1352989, 55798629, 629138000, 1311005, 44904251 #### [facility] Laboratory [address] [place] [address] Morphology Panfilo (Bld) [Interp] See Morphology Normal [facility] Comment on above: Order Comment: Order Added by Discern Expert. Performed By: #### 2 076297, 09011531, 7838778, 75490082, 523901006, 0298156, 35166516 #### [facility] Laboratory [address] [place] [address] Ovalocytes LM Ql (Bld) Present Normal [facility] Comment on above: Order Comment: Order Added by Discern Expert. Performed By: #### 2 134559, 45528331, 9257221, 75225288, 674710432, 2367817, 41680975 #### [facility] Laboratory [address] [place] [address] Platelets Large LM Ql (Bld) Present Normal [facility] Comment on above: Order Comment: Order Added by Discern Expert. Performed By: #### 2 659825, 70345218, 7910055, 50478699, 504376416, 8244037, 05132606 #### [facility] Laboratory [address] [place] [address] Polychromasia LM Ql (Bld) Present Normal [facility] Comment on above: Order Comment: Order Added by Discern Expert. Performed By: #### 2 820682, 82341367, 9277574, 96477352, 086566291, 2354779, 20970876 #### [facility] Laboratory [address] [place] [address] Segmented neutrophils/100 WBC (Bld) 90 % High 36-75 [facility] Comment on above: Order Comment: Order Added by Discern Expert. Performed By: #### 2 791862, 45036865, 7457753, 18699535, 013534355, 8324292, 18145610 #### [facility] Laboratory [address] [place] [address] Variant lymphocytes LM Ql (Bld) 0 % Normal <=0 [facility] Comment on above: Order Comment: Order Added by Vonda Expert. Performed By: #### 2 631777, 68714417, 4540831, 77002014, 894982435, 4451121, 74396680 #### [facility] Laboratory [address] [place] [address] Monitor Recordon 10-01-2023 Monitor Record [id number] 9#1.00TIFF Normal [facility] Monitor Record [id number] 9#1.00TIFF Normal [facility] Monitor Record [id number] 0#1.00TIFF Normal [facility] Monitor Record [id number] 9#1.00TIFF Normal [facility] Osmolalityon 10-01-2023 Osmolality [Osmolality] 302 mosm/kg High 275-295 [facility] Comment on above: Performed By: #### 2 056065, 51553589, 7774725, 81322786, 766331740, 2574465, 41313582 #### [facility] Laboratory [address] [place] [address] Progress Note-Physicianon Progress Note-Physician Basic Informatio n 82 y/o M admitted for abscess of left foot Assessment/Plan Abscess of left foot -MRI obtained -Podiatry obtained -Awaiting I&D and cultures -Vanc and cefepime 2/2 kidney -Awaiting MRSA nasal screen -Will touch base w/ID Thrombocytosis Iron def -Reactive? B12 and folate levels acceptable, Plts improving -IV iron noted -Heme/Onc consulted: out pt follow up with them in 2 weeks -CT chest abdomen pelvis, out pt follow up w/pulm for repeat CT chest findings JOSELINE BPH -CKD? JOSELINE? -Switching antibiotics to Vanc and Cefepime 2g q24hr 2/2 CrCl -Nephrology input DVT PPX: heparin Time: 35 mins Plan: Onc work up, renal in put, await I&D findings Subjective Was seen and examined. Resting comfortably in bed. Eating food. Review of Systems Is any fevers chills chest pain chest tightness abdominal pain abdominal discomfort Objective Vitals & Measurements T: 36.7 ?C(Oral) TMIN: 36.2 ?C(Temporal Artery) TMAX: 36.9 ?C(Temporal Artery) HR: 71(Monitored) RR: 18 BP: 162/68 SpO2: 93% WT: 69.3 kg Intake & Output This visit (24 hour periods starting at 07:00 EST) 10/01/23 * 09/30/23 09/29/23 Total Summary Intake mL -- 2,955.62 1,399.1 Output mL -- 775 -- Fluid Balance -- 2,180.62 1,399.1 Intake (8) Generic Diluent, vancomycin mL -- -- 250 Lactated Ringers Injection 1,000 mL mL -- 50 -- Oral Intake mL -- 300 -- Sodium Chloride 0.9% intravenous solution 1,000 mL mL -- 2,269.42 998.1 Sodium Chloride 0.9%, cefepime mL -- 50 -- Sodium Chloride 0.9%, piperacillin-tazobac de leon mL -- 36.2 150 Sodium Chloride 0.9%, vancomycin mL -- 250 -- morphine mL -- -- 1 Total -- 2,955.62 1,399.1 Output (1) Urine Voided mL -- 775 -- Total -- 775 -- Counts (1) Urine Count -- -- -- * This column has not completed the indicated time period. Physical Exam General: alert, no acute distress Psychiatric: cooperative, affect appropriate for age Neurological: awake, alert, oriented, speech normal Cardiovascular: regular rate and rhythm, normal no overt murmurs Respiratory: respirations non labored no adventitious breath sounds Gastrointestinal: soft NT, NG, NR Extremities: no edema, no wound Lab Results WBC: 26.5 E9/L High (10/01/23 06:13:00) RBC: 6.2 E12/L High (10/01/23 06:13:00) HGB: 12.3 gm/dL Low (10/01/23 06:13:00) Hct: 39.9 % (10/01/23 06:13:00) MCV: 64 fL Low (10/01/23 06:13:00) MCH: 19.8 pg Low (10/01/23 06:13:00) MCHC: 31 gm/dL Low (10/01/23 06:13:00) RDW: 21.6 % High (10/01/23 06:13:00) Platelet: 587 E9/L High (10/01/23 06:13:00) MPV: 6.6 fL (10/01/23 06:13:00) Segs Man: 90 % High (10/01/23 06:13:00) Band Man: 1 % (10/01/23 06:13:00) Lymph Man: 1 % Low (10/01/23 06:13:00) Monocyte Man: 5 % (10/01/23 06:13:00) Eos Man: 0 % (10/01/23 06:13:00) Basophil Man: 2 % (10/01/23 06:13:00) [place] Man: 1 % High (10/01/23 06:13:00) React Lymph Man: 0 % (10/01/23 06:13:00) Segs Abs Man: 24.1 E9/L High (10/01/23 06:13:00) Lymph Abs Man: 0.3 E9/L Low (10/01/23 06:13:00) [place] Abs Man: 1.3 E9/L High (10/01/23 06:13:00) Eos Abs Man: 0 E9/L (10/01/23 06:13:00) Basophil Abs Man: 0.5 E9/L High (10/01/23 06:13:00) RBC Morph: See Morphology (10/01/23 06:13:00) Anisocytosis: Present (10/01/23 06:13:00) Microcyte: Present (10/01/23 06:13:00) Hypochromasia: Present (10/01/23 06:13:00) Polychromasia: Present (10/01/23 06:13:00) Ovalocytes: Present (10/01/23 06:13:00) Large Plt: Present (10/01/23 06:13:00) Glucose Lvl: 99 mg/dL (10/01/23 06:13:00) BUN: 33 mg/dL High (10/01/23 06:13:00) Creatinine: 1.7 mg/dL High (10/01/23 06:13:00) eGFR: 40 mL/min/1.73 m2 Low (10/01/23 06:13:00) BUN/Creat Ratio: 19 (10/01/23 06:13:00) Sodium Lvl: 139 mmol/L (10/01/23 06:13:00) Potassium Lvl: 4.2 mmol/L (10/01/23 06:13:00) Chloride: 116 mmol/L High (10/01/23 06:13:00) CO2: 22 mmol/L (10/01/23 06:13:00) AGAP: 5 mEq/L Low (10/01/23 06:13:00) Calcium Lvl: 8.3 mg/dL Low (10/01/23 06:13:00) Magnesium: 2 mg/dL (10/01/23 06:13:00) Vanco Tr: 7 mcg/mL Low (09/30/23 19:04:00) Osmolality: 302 mOsm/kg High (10/01/23 06:13:00) U Osmolality: 702 mOsm/kg (09/30/23 23:31:00) U Sodium: 74 mmol/L (09/30/23 23:31:00) U Creatinine: 141.2 mg/dL (09/30/23 23:31:00) UA Spec Desc: Random Urine (09/30/23 23::00) UA Color: Yellow2 (09/30/23 23:31:00) UA Clarity: Clear2 (09/30/23:31:00) UA Spec Grav: >=1.030 (09/30/23 23:31:00) UA pH: 5.5 (09/30/23 23:31:00) UA Protein: 1+ Abnormal (09/30/23 23:31:00) UA Glucose: NEGATIVE1 (09/30/23 23:31:00) UA Ketones: NEGATIVE1 (09/30/23:31:00) UA Bili: NEGATIVE1 (09/30/23 23:31:00) UA Blood: NEGATIVE1 (09/30/23:31:00) UA Nitrite: NEGATIVE1 (09/30/23::00) UA Urobilinogen: 0.2 (09/30/23 23::00) UA Leuk Est: NEGATIVE1 (09/30/23 23:31:00) UA RBC: 0-3 (09/30/23:31:00) UA Squam Epithelial: 0-2 (11/28/23 23:31:00) (more content not included)... Normal [facility] Comment on above: Result Comment: Elec tronically Signed By: Keyon ANAYA, Raiza\.br\Date and Time Signed: 10/01/23 09:51 EST Reference Laboratory Testing Ordered By: Freya Anderson on 10-01-2023 Sodium [Moles/Vol] 112433 mmol/L Invalid Interpretation Code [facility] SendOutsSS Comment on above: Result Comment: Test code corrected. RC 10/01/2023 06:52:57 EST Test Name KALE 2 Invalid Interpretation Code [facility] T4 & TSHon 10-01-2023 T4 [Mass/Vol] 7.1 microgram/dL Normal 4.6-9.1 [facility] Comment on above: Performed By: #### 2 597967, 96148116, 8911041, 86201971, 152183722, 1112457, 36980790 #### [facility] Laboratory [address] [place] [address] TSH Qn 16.05 m[IU]/L High 0.34-5.60 [facility] Comment on above: Performed By: #### 2 402772, 62802990, 7425327, 82518114, 705166666, 5565475, 10966500 #### [facility] Laboratory [address] [place] [address] U Creatinineon 10-01-2023 Creatinine (U) [Mass/Vol] 141.2 mg/dL Invalid Interpretation Code [facility] Comment on above: Result Comment: The reference range and other method performance specifications have not been established for this test; results should be integrated into the clinical context for interpretation. Performed By: #### 2 546529, 18875815, 1183639, 02749154, 295950618, 2915808, 89891128 #### [facility] Laboratory [address] [place] [address] U Osmolalityon 10-01-2023 U Osmolality 702 mOsm/kg Normal 50-1400 [facility] Comment on above: Performed By: #### 2 632238, 13611614, 9186189, 94136843, 803671852, 4584774, 74684784 #### [facility] Laboratory [address] [place] [address] U Sodiumon 10-01-2023 Sodium (U) [Moles/Vol] 74 mmol/L Invalid Interpretation Code [facility] Comment on above: Result Comment: The reference range and other method performance specifications have not been established for this test; results should be integrated into the clinical context for interpretation. Performed By: #### 2 038670, 60804454, 3361609, 97499475, 264005324, 6605246, 31258250 #### [facility] Laboratory [address] [place] [address] Urinalysison 10-01-2023 Bilirubin Ql (U) Negative Normal Negative [facility] Comment on above: Performed By: #### 2 916969, 86292069, 8696425, 23056215, 120555119, 3991437, 72970139 #### [facility] Laboratory [address] [place] [address] Clarity (U) CLEAR Normal Clear [facility] Comment on above: Performed By: #### 2 659228, 36190960, 8419006, 64860567, 095275548, 3268568, 44465106 #### [facility] Laboratory [address] [place] [address] Color (U) YELLOW Normal Yellow [facility] Comment on above: Performed By: #### 2 457974, 28189977, 8790602, 97306756, 543040306, 2013745, 66253737 #### [facility] Laboratory [address] [place] [address] Epithelial cells.squamous LM.HPF (Urine sed) [#/Area] 0-2 Normal 0-2 [facility] Comment on above: Performed By: #### 2 688782, 24609888, 2504751, 23741132, 956286190, 2562263, 85767776 #### [facility] Laboratory [address] [place] [address] Glucose Test strip (U) [Mass/Vol] Negative Normal Negative [facility] Comment on above: Performed By: #### 2 980690, 75189703, 9577850, 31623061, 016556549, 5647508, 36153215 #### [facility] Laboratory [address] [place] [address] Hemoglobin Ql (U) Negative Normal Negative [facility] Comment on above: Performed By: #### 2 126108, 23094560, 0766821, 90837056, 249151714, 9638194, 60984909 #### [facility] Laboratory [address] [place] [address] Ketones (U) [Mass/Vol] Negative Normal Negative [facility] Comment on above: Performed By: #### 2 564041, 94986082, 5895773, 42122609, 350140906, 1832005, 30514711 #### [facility] Laboratory [address] [place] [address] [place].plasma/[place].R BC (Bld) [Mass ratio] 0-3 Normal 0-3 [facility] Comment on above: Performed By: #### 2 227946, 65228078, 9652584, 95916737, 341883132, 2158415, 65138884 #### [facility] Laboratory [address] [place] [address] Nitrite Ql (U) Negative Normal Negative [facility] Comment on above: Performed By: #### 2 496167, 71023801, 0947502, 08477166, 448262153, 3264089, 46333743 #### [facility] Laboratory [address] [place] [address] pH (U) 5.5 [pH] Invalid Interpretation Code 5.0-9.0 [facility] Comment on above: Performed By: #### 2 571573, 87056241, 8800132, 96868673, 587523165, 7300222, 30679928 #### [facility] Laboratory [address] [place] [address] Protein (U) [Mass/Vol] 1+ Abnormal Negative Fi [facility] Comment on above: Performed By: #### 2 329233, 06622865, 9833433, 46595408, 314799559, 2365205, 01187406 #### [facility] Laboratory [address] [place] [address] Specific gravity (U) [Rel density] >=1.030 Invalid Interpretation Code 1.005-1.030 [facility] Comment on above: Performed By: #### 2 265814, 32213525, 7022724, 71752081, 399670473, 6111386, 00262036 #### [facility] Laboratory [address] [place], [place] [address] Type of Urine collection method Random Urine Normal [facility] Comment on above: Performed By: #### 2 197899, 17622436, 3916606, 77022518, 240436942, 9764126, 54670113 #### [facility] Laboratory [address] [place], [place] [address] Urobilinogen Qn (U) 0.2 {Snow'U}/dL Normal 0.0-1.0 [facility] Comment on above: Performed By: #### 2 452462, 44468057, 4894310, 16023405, 855730462, 1534295, 44383849 #### [facility] Laboratory [address] [place] [address] WBC Auto Ql (U) Negative Normal Negative [facility] Comment on above: Performed By: #### 2 503532, 70180294, 9635960, 11889090, 783733440, 8334414, 33533267 #### [facility] Laboratory [address] [place] [address] WBC LM.HPF (Urine sed) [#/Area] 0-5 Normal 0-5 [facility] Comment on above: Performed By: #### 2 956305, 74663417, 4717123, 85637966, 476446432, 5132555, 94548565 #### [facility] Laboratory [address] [place] [address] eGFRon 10-01-2023 GFR/1.73 sq M.predicted among non-blacks MDRD (S/P/Bld) [Vol rate/Area] 40 mL/min/1.73 m2 Low >=59 [facility] Comment on above: Order Comment: Order added by Discern Expert. Result Comment: [place] amado kidney disease could be indicated at eGFR's of less than 60 mL/min/1.73m2. Kidney failure is indicated at less than 15 mL/min/1.73m2. Performed By: #### 2 049133, 74401400, 9783845, 15594724, 015008457, 5733259, 04303201 #### [facility] [address] [place] [address] .Manual Abson 09-30-2023 Basophils/Leukocytes Manual cnt (Bld) [Pure # fraction] 0.7 E9/L High 0.0-0.2 [facility] Comment on above: Performed By: #### 2 873735, 94183882, 2620875, 77783353, 490229875, 2308165, 13681825 #### [facility] Laboratory [address] [place] [address] Eosinophils/Leukocytes Manual cnt (Bld) [Pure # fraction] 0.7 E9/L High 0.0-0.5 [facility] Comment on above: Performed By: #### 2 938828, 31401867, 5280830, 12687940, 393751071, 3444299, 18227095 #### [facility] Laboratory [address] [place] [address] Lymphocytes/Leukocytes Manual cnt (Bld) [Pure # fraction] 0.4 E9/L Low 1.0-4.0 [facility] Comment on above: Performed By: #### 2 570736, 17839313, 2261001, 42261656, 491268168, 8037341, 93309067 #### [facility] Laboratory [address] [place] [address] Monocytes/Leukocytes Manual cnt (Bld) [Pure # fraction] 4.8 E9/L High 0.2-1.0 [facility] Comment on above: Performed By: #### 2 924192, 55282153, 7121279, 86535923, 861713690, 9049980, 47938760 #### [facility] [address] [place] [address] Neutrophils/Leukocytes Auto (Bld) [Pure # fraction] 30.2 E9/L High 2.0-7.5 [facility] Comment on above: Performed By: #### 2 094355, 45077923, 1223251, 02575195, 233095795, 0744976, 22755023 #### [facility] [address] [place] [address] [facility] 09-30-2023 Anion gap [Moles/Vol] 12 mmol/L Normal 6-16 [facility] Comment on above: Performed By: #### 2 089041, 13800955, 7996954, 02990523, 817482887, 4447287, 91451417 #### [facility] [address] [place] [address] Calcium [Mass/Vol] 9.1 mg/dL Normal 8.9-11.1 [facility] Comment on above: Performed By: #### 2 941320, 48395343, 6860837, 15037541, 881996544, 1726202, 12090549 #### [facility] [address] [place] [address] Chloride [Moles/Vol] 111 mmol/L Normal 101-111 [facility] Comment on above: Performed By: #### 2 443243, 27659388, 2294613, 02448016, 189763357, 8164244, 85417856 #### [facility] [address] [place] [address] CO2 [Moles/Vol] 22 mmol/L Normal 21-31 [facility] Comment on above: Performed By: #### 2 615138, 47671621, 0543444, 75406495, 054047403, 4191201, 24594923 #### [facility] [address] [place] [address] Creatinine [Mass/Vol] 1.8 mg/dL High 0.5-1.3 [facility] Comment on above: Performed By: #### 2 226092, 18382484, 3601592, 81706083, 706247641, 7610604, 53471463 #### [facility] [address] [place] [address] Glucose [Mass/Vol] 156 mg/dL Normal 55-199 [facility] Comment on above: Result Comment: If t his glucose result represents a fasting glucose, interpretation should refer to the following reference range: 55-99 mg/dL Performed By: #### 2 914605, 45654289, 3325155, 35647201, 095121004, 6437578, 81157596 #### [facility]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 3835950, 60560634, [id number], 7797665, [id number] ####[facility] [address] [place] [address] Microcytes Ql (Bld) Present Normal [facility] Comment on above: Order Comment: Order Added by Discern Expert. Performed By: #### 2 768350, [id number], 3366449, [id number], [id number], 9505896, [id number] ####[facility] [address] [place] [address] Monocytes/100 WBC (Bld) 13 % Normal 4-14 [facility] Comment on above: Order Comment: Order Added by Discern Expert. Performed By: #### 2 239406, [id number], 8511256, 75353404, [id number], 5545822, [id number] ####[facility] [address] [place] [address] Morphology Panfilo (Bld) [Interp] See Morphology Normal [facility] Comment on above: Order Comment: Order Added by Discern Expert. Performed By: #### 2 310607, [id number], 3444506, 02572853, [id number], 1629261, 29345191 ####[facility] [address] [place] [address] Nucleated cells (Bld) [#/Vol] 1 High <=0 [facility] Comment on above: Order Comment: Order Added by Discern Expert. Performed By: #### 2 112085, [id number], 5699952, 86530600, [id number], 9522540, [id number] ####[facility] [address] [place] [address] Platelets Large LM Ql (Bld) Present Normal [facility] Comment on above: Order Comment: Order Added by Discern Expert. Performed By: #### 2 864241, 17583906, 1629560, 92783488, 896866549, 8188446, 69248634 ####[facility] [address] [place] [address] Segmented neutrophils/100 WBC (Bld) 82 % High 36-75 [facility] Comment on above: Order Comment: Order Added by Discern Expert. Performed By: #### 2 742357, 94374491, 5468944, 68527555, [id number], 2740016, 45664911 ####[facility] [address] [place] [address] Variant lymphocytes LM Ql (Bld) 1 % High <=0 [facility] Comment on above: Order Comment: Order Added by Discern Expert. Performed By: #### 2 114870, 08724326, 9965982, 79559017, 785321410, 1660927, [id number] ####[facility] [address] [place] [address] Message from Medicareon 11- Message from Medicare [id number] 11 [id number] 2#1.00TIFF Normal [facility] Monitor Recordon 09-30-2023 Monitor Record [id number] 3#1.00TIFF Normal [facility] Monitor Record [id number] 0#1.00TIFF Normal [facility] Monitor Record [id number] 2#1.00TIFF Normal [facility] Monitor Record [id number] 1#1.00TIFF Normal [facility] No Panel InformationOrdered By: Melly Guevara on 09-30-2023 GS 1+ White Blood Cells No organisms seen. [facility] Wound Culture No growth at 3 days. [facility] GS 1+ White Blood Cells No organisms seen. [facility] Wound Culture No growth at 3 days. [facility] Oncology Progress Noteon Oncology Progress Note Patient: VIKAS GRIMALDO Age: 82 years Sex: Male : 1940 Associated Diagnoses: None Author: Lashanda ANAYA, Orlando Caballero Chief Complaint Thrombocytosis in setting of left foot abscess. History of Present Illness 82-year-old male who was sent to [facility] ER by Dr. Quinteros with concerns regarding a left foot infection concerning for a left foot abscess. His symptoms started 7-01 days ago. 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 He stated he did not have any foot pain or problems until just the past couple weeks. Has been able to ambulate on that foot. Denies drainage from it. No fevers. He has no past medical history. In the ED he was started on vancomycin and Zosyn for foot abscess. Lab work revealed JOSELINE with a creatinine of 1.8. He denies NSAID use, but routinely takes an ASA at nighttime for pain. Previously in 2019 creatinine was normal. Patient also with severely elevated platelet count as well at 2164K (high end of normal 500K). Since his platelet count was that high and he needs urgent left foot surgery scheduled at 1500 on 09/30/23, hematology was consulted for eval and opinion and risk stratification for his thrombocytopenia. His labs revealed platelet count of 2,164,000 on 09/29/2023 and improved to 1,273,000 on 1128 2324 hrs. after starting antibiotics Zosyn and vancomycin. Remaining labs revealed 13.7 on admission and 13.4 on 09/30/2023. Her WBC 24,000 on admission on 09/29/2023 and increased to 36,000 mainly on neutrophils with absolute neutrophil count is 30,000 on 1128. Absolute monocyte count 4.8 on 1128 and 1.9 on 09/29/2023. Her absolute lymphocyte count 0.4 absolute eosinophil count 0.7 and absolute basophil count 0.7 minimally elevated. Labs revealed creatinine 1.8 and calcium 9.1 total protein of 6.6 ALT 16 AST 23 alkaline phosphatase 67. Iron is low at 25 transferrin 242 TIBC 339. Ferritin is 106, folate is over 22 and B12 942. Hemoglobin A1c 5.6%. On ROS, he denied any fevers or chills but has swelling and pain in the left foot with erythema as well. 14 points ROS was obtained and was otherwise negative. He stopped tobacco smoking 5 years ago but he stated he has wood burner at home and that produces some smokes. Review of Systems Constitutional: Negative. Eye: Negative. Ear/Nose/Mouth/Throa t: Negative. Respiratory: Negative. Cardiovascular: Negative. Gastrointestinal: Negative. Genitourinary: Negative. Hematology/Lymphatic s: Negative. Endocrine: Negative. Immunologic: Negative. Musculoskeletal: Left foot swelling with erythema and tenderness.. Integumentary: Negative, left foor erythema with swelling and warmth and possible abscess.. Neurologic: Alert and oriented X4. Psychiatric: Negative. ROS reviewed as documented in chart Health Status Allergies: Allergic Reactions (Selected) No Known Allergies Current medications: Home Medications (2) Active aspirin 81 mg Oral EC Tab 81 mg = 1 tab(s), Oral, Daily multivitamin 1 tab, Oral, Daily , Medications (9) Active Scheduled: (4) cefepime + Sodium Chloride 0.9% Minibag 50 mL 2,000 mg 1 EA, IV Piggyback, q24hr heparin 5,000 units/mL Inj [F] 5,000 unit(s) 1 mL, SubCutaneous, BID iron sucrose (Venofer) + Sodium Chloride 0.9% 250 mL 300 mg 15 mL, IV Piggyback, Daily vancomycin PHARMACY TO DOSE [F] PHARMACY TO DOSE, IV, As Directed Continuous: (2) Lactated Ringers 1,000 mL 1,000 mL, IV, 150 mL/hr Sodium Chloride 0.9% 1,000 mL 1,000 mL, IV, 150 mL/hr PRN: (3) acetaminophen 325 mg Tab UD [F] 650 mg 2 tab(s), Oral, q6hr morphine 2 mg/mL preservative-free SOLN [F] 2 mg 1 mL, IV Push, q4hr ondansetron 2 mg/mL Inj [F] 4 mg 2 mL, IV Push, q6hr Problem list: No problem items selected or recorded. Histories Past Medical History: No active or resolved past medical history items have been selected or recorded. Family History: No family history items have been selected or recorded. Procedure history: No active procedure history items have been selected or recorded. Social History Social & Psychosocial Habits Alcohol 11/12/2018 Use: Current Comment: vicente - 11/12/2018 16:Shayy - Romy Bella RN 09/29/2023 Use: Current Type: Beer Frequency: 1-2 times per year Comment: once in awhile - 09/29/2023 17:19 - Nancy Soto RN Substance Abuse 11/12/2018 Use: Current Comment: vicente - 11/12/2018 16:05 - Romy Bella RN 09/29/2023 Use: Current Comment: - 09/29/2023 17:19 - Nancy Soto RN Tobacco 11/12/2018 Tobacco Use: Never (less than 100 in l Comment: vicente - 11/12/2018 16:05 - Romy Bella RN 09/29/2023 Tobacco Use: Former smoker, quit more . Physical Examination Vital Signs 09/30/2023 12:18 EST Hourly Rounding Yes Promise to Return Yes 09/30/2023 11:59 EST Heart Rate Monitored 74 bpm Respiratory Rate 18 br/min Systolic Blood Pressure 152 mmHg HI Diastolic Blood Pressure 74 mmHg Blood Pressure Locatio (more content not included)... Normal [facility] Path. Reviewon 09-30-2023 Path Review Granulocytic leukocytosis with monocytosis and mild basophilia. Anemia with marked anisopoikilocytosis, target cells, ovalocytes and polychromasia. Clinical correlation is indicated for etiology. Thrombocytosis with giant platelets. Invalid Interpretation Code [facility] Comment on above: Order Comment: Order Added by Discern Expert. Performed By: #### 2 [id number], [id number], [id number], [id number], [id number], [id number], [id number] #### [facility] [address] [place] [address] Progress Note - Pharmacyon 11-30-2022 Progress Note - Pharmacy Vancomycin Phar kirstie to Dose Consult Note Indication: Skin and Skin Structure Infection Goal Range: AUC/ALY: 400 - 600 RECOMMENDATIONS/PLAN : Pharmacy consulted for vancomycin dosing for SCOTTGABRIELAJAMESNE Dorothy, a 82 Years old, Male who is being treated with vancomycin for abcess of the foot. 1. VANCO STATUS: Vancomycin therapy is still active, today is day 2 of treatment. Patient is received Vancomycin 1250mg IV dosed by levels due to assumed JOSELINE. 2. VANCO LEVEL: The most recent vancomycin level was 7mcg/mL drawn at 1904 on 09/30. This is a 25th hour level on the 2ndday of therapy. 3. DOSING RECS: The vancomycin level is not therapeutic, the following dosing adjustments have been made:1000mg IV q18hr 4. NEXT LEVEL: The next paired levels are scheduled. Peak at 1100 on 10/02 and Trough at 0200 on 10/03. 5. MRSA NASAL SWAB? A MRSA Nasal Swab is not appropriate at this time. We will follow patient renal function, vancomycin levels and doses with you during the course of therapy. Additional recommendations will appear in follow up notes. If you have any questions, please contact the pharmacy at extension [phone]. Age: 82 Years Allergies: NKDA Weight: Last Documented Weight and Type of Scale Used Last Documented Weight Weight Measured: 58.8 kg (09/30/23 07:59:00) Type of Scale Used Weight Measured Type of Scale: Bed Scale (digital) (09/29/23 21:53:00) Height: Last Documented Height/Length Last Documented Height/Length Height/Length Measured: 170.18 cm (09/30/23 07:59:00) CrCl: 28.7mL/min SCr: 1.8mg/dL Labs: WBC: 36.8 E9/L Critical (09/30/23 06:07:00) RBC: 6.8 E12/L High (09/30/23 06:07:00) HGB: 13.4 gm/dL Low (09/30/23 06:07:00) Hct: 43.5 % (09/30/23 06:07:00) MCV: 63.4 fL Low (09/30/23 06:07:00) MCH: 19.5 pg Low (09/30/23 06:07:00) MCHC: 30.8 gm/dL Low (09/30/23 06:07:00) RDW: 21.6 % High (09/30/23 06:07:00) Platelet: 1273 E9/L Critical (09/30/23 06:07:00) MPV: 6.8 fL (09/30/23 06:07:00) Segs Man: 82 % High (09/30/23 06:07:00) Band Man: 0 % (09/30/23 06:07:00) Lymph Man: 0 % Low (09/30/23 06:07:00) Monocyte Man: 13 % (09/30/23 06:07:00) Eos Man: 2 % (09/30/23 06:07:00) Basophil Man: 2 % (09/30/23 06:07:00) React Lymph Man: 1 % High (09/30/23 06:07:00) NRBC Man: 1 High (09/30/23 06:07:00) Segs Abs Man: 30.2 E9/L High (09/30/23 06:07:00) Lymph Abs Man: 0.4 E9/L Low (09/30/23 06:07:00) Knox Abs Man: 4.8 E9/L High (09/30/23 06:07:00) Eos Abs Man: 0.7 E9/L High (09/30/23 06:07:00) Basophil Abs Man: 0.7 E9/L High (09/30/23 06:07:00) RBC Morph: See Morphology (09/30/23 06:07:00) Anisocytosis: Present (09/30/23 06:07:00) Microcyte: Present (09/30/23 06:07:00) Hypochromasia: Present (09/30/23 06:07:00) Large Plt: Present (09/30/23 06:07:00) Glucose Lvl: 156 mg/dL (09/30/23 06:07:00) BUN: 33 mg/dL High (09/30/23 06:07:00) Creatinine: 1.8 mg/dL High (09/30/23 06:07:00) eGFR: 38 mL/min/1.73 m2 Low (09/30/23 06:07:00) BUN/Creat Ratio: 18 (09/30/23 06:07:00) Sodium Lvl: 141 mmol/L (09/30/23 06:07:00) Potassium Lvl: 4.1 mmol/L (09/30/23 06:07:00) Chloride: 111 mmol/L (09/30/23 06:07:00) CO2: 22 mmol/L (09/30/23 06:07:00) AGAP: 12 mEq/L (09/30/23 06:07:00) Calcium Lvl: 9.1 mg/dL (09/30/23 06:07:00) Hgb A1C %: 5.6 % (09/30/23 06:07:00) Transferrin: 242 mg/dL (09/30/23 06:07:00) TIBC: 339 mcg/dL (09/30/23 06:07:00) Vanco Tr: 7 mcg/mL Low (09/30/23 19:04:00) Normal [facility] Progress Note-Physicianon Progress Note-Physician Patient: VIKAS GRIMALDO Age: 82 years Sex: Male : 1940 Associated Diagnoses: None Author: Vinod Quinteros DPM Postoperative Information Preoperative Diagnosis: abscess left foot with non healing wound left . Postoperative Diagnosis: same. Performed by: Vinod Quinteros DPM. Complications: None. i and d mulktiple areas left foot, dpc left Normal [facility] Comment on above: Result Comment: Elec tronically Signed By: Vinod Quinteros DPM\.br\Date and Time Signed: 09/30/23 17:22 EST Progress Note-Physician Basic Informatio n 82 y/o M admitted for abscess of left foot Assessment/Plan Abscess of left foot -MRI obtained -Podiatry obtained -Awaiting I&D and cultures -Vanc and cefepime 2/2 kidney -Will touch base w/ID Thrombocytosis Iron def -Reactive? B12 and folate levels acceptable -IV iron noted -Heme/Onc consulted -CT chest abdomen pelvis, out pt follow up w/pulm for repeat CT chest findings JOSELINE BPH -CKD? JOSELINE? -Check post void residual -Switching antibiotics to Vanc and Cefepime 2g q24hr 2/2 CrCl -Nephrology input DVT PPX: heparin Time: 35 mins Plan: Onc work up, renal in put, await I&D findings Subjective The patient was seen and examined. No acute complaints Review of Systems Denies headaches, changes in vision, chest pain, chest tightness, abdominal pain, lower limb swelling C/O left lower foot discomfort Objective Vitals & Measurements T: 36.6 ?C(Oral) TMIN: 36.6 ?C(Oral) TMAX: 36.8 ?C(Oral) HR: 76(Monitored) RR: 18 BP: 133/86 SpO2: 95% HT: 170.18 cm WT: 58.8 kg Intake & Output This visit (24 hour periods starting at 07:00 EST) 09/30/23 * 09/29/23 09/28/23 Total Summary Intake mL -- 1,399.1 -- Output mL -- -- -- Fluid Balance -- 1,399.1 -- Intake (4) Generic Diluent, vancomycin mL -- 250 -- Sodium Chloride 0.9% intravenous solution 1,000 mL mL -- 998.1 -- Sodium Chloride 0.9%, piperacillin-tazobac de leon mL -- 150 -- morphine mL -- 1 -- Total -- 1,399.1 -- Output (0) Counts (0) * This column has not completed the indicated time period. Physical Exam General: alert, no acute distress Psychiatric: cooperative, affect appropriate for age Neurological: awake, alert, oriented, speech normal Cardiovascular: no overt murmurs Respiratory: no adventitious breath sounds Gastrointestinal: soft NT, NG, NR Extremities: left foot w/obvious erythema and swelling Lab Results WBC: 36.8 E9/L Critical (09/30/23 06:07:00) RBC: 6.8 E12/L High (09/30/23 06:07:00) HGB: 13.4 gm/dL Low (09/30/23 06:07:00) Hct: 43.5 % (09/30/23 06:07:00) MCV: 63.4 fL Low (09/30/23 06:07:00) MCH: 19.5 pg Low (09/30/23 06:07:00) MCHC: 30.8 gm/dL Low (09/30/23 06:07:00) RDW: 21.6 % High (09/30/23 06:07:00) Platelet: 1273 E9/L Critical (09/30/23 06:07:00) MPV: 6.8 fL (09/30/23 06:07:00) Segs Man: 82 % High (09/30/23 06:07:00) Band Man: 0 % (09/30/23 06:07:00) Lymph Man: 0 % Low (09/30/23 06:07:00) Monocyte Man: 13 % (09/30/23 06:07:00) Eos Man: 2 % (09/30/23 06:07:00) Basophil Man: 2 % (09/30/23 06:07:00) React Lymph Man: 1 % High (09/30/23 06:07:00) NRBC Man: 1 High (09/30/23 06:07:00) Segs Abs Man: 30.2 E9/L High (09/30/23 06:07:00) Lymph Abs Man: 0.4 E9/L Low (09/30/23 06:07:00) Knox Abs Man: 4.8 E9/L High (09/30/23 06:07:00) Eos Abs Man: 0.7 E9/L High (09/30/23 06:07:00) Basophil Abs Man: 0.7 E9/L High (09/30/23 06:07:00) Path Review: Path Review (09/29/23 17:13:00) Sed Rate Automated: 9 mm/hr (09/29/23 17:13:00) RBC Morph: See Morphology (09/30/23 06:07:00) Anisocytosis: Present (09/30/23 06:07:00) Microcyte: Present (09/30/23 06:07:00) Hypochromasia: Present (09/30/23 06:07:00) Polychromasia: Present (09/29/23 17:13:00) Ovalocytes: Present (09/29/23 17:13:00) Large Plt: Present (09/30/23 06:07:00) PT: 15.4 second(s) High (09/29/23 17:13:00) INR: 1.4 (09/29/23 17:13:00) PTT: 41.4 second(s) High (09/29/23 17:13:00) Glucose Lvl: 156 mg/dL (09/30/23 06:07:00) BUN: 33 mg/dL High (09/30/23 06:07:00) Creatinine: 1.8 mg/dL High (09/30/23 06:07:00) eGFR: 38 mL/min/1.73 m2 Low (09/30/23 06:07:00) BUN/Creat Ratio: 18 (09/30/23 06:07:00) Sodium Lvl: 141 mmol/L (09/30/23 06:07:00) Potassium Lvl: 4.1 mmol/L (09/30/23 06:07:00) Chloride: 111 mmol/L (09/30/23 06:07:00) CO2: 22 mmol/L (09/30/23 06:07:00) AGAP: 12 mEq/L (09/30/23 06:07:00) Calcium Lvl: 9.1 mg/dL (09/30/23 06:07:00) Alk Phos: 67 Int._Unit/L (09/29/23 17:13:00) ALT: 16 Int._Unit/L (09/29/23 17:13:00) AST: 23 Int._Unit/L (09/29/23 17:13:00) Total Protein: 6.6 gm/dL (09/29/23 17:13:00) Albumin Lvl: 3.5 gm/dL (09/29/23 17:13:00) Globulin: 3.1 gm/dL (09/29/23 17:13:00) A/G Ratio: 1.1 (09/29/23 17:13:00) Bili Total: 0.5 mg/dL (09/29/23 17:13:00) Lactic Acid Lvl: 1.2 mmol/L (09/29/23 17:13:00) Magnesium: 1.9 mg/dL (09/29/23 17:13:00) CRP: 1.1 mg/dL (09/29/23 17:13:00) Iron: 25 mcg/dL Low (09/29/23 19:11:00) Transferrin: 242 mg/dL (09/30/23 06:07:00) TIBC: 339 mcg/dL (09/30/23 06:07:00) Vitamin B12 Lvl: 942 pg/mL (09/29/23 19:11:00) Folate Lvl: >22.3 (09/29/23 19:11:00) Ferritin Lvl: 106 ng/mL (09/29/23 19:11:00) Problem List/Past Medical History Ongoing No qualifying data Historical No qualifying data Medications Inpatient acetaminophen 325 mg Tab, 650 mg= 2 tab(s), Oral, q6hr, PRN cefepime additive + Sodium Chloride 0.9% intravenous solution 50 mL heparin 5000 units/mL Inj, 5000 unit(s)= 1 mL (more content not included)... Normal [facility] Comment on above: Result Comment: Elec tronically Signed By: Keyon ANAYA, Raiza\.br\Date and Time Signed: 09/30/23 11:07 EST TIBC Calculatedon 09-30-2023 Iron binding capacity [Mass/Vol] 339 microgram/dL Normal 250-400 [facility] Comment on above: Performed By: #### 2 [id number], [id number], [id number], [id number], [id number], [id number], [id number] ####[facility] [address] [place] [address] Transferrin [Mass/Vol] 242 mg/dL Normal 200-370 [facility] Comment on above: Performed By: #### 2 [id number], [id number], [id number], [id number], [id number], [id number], [id number] ####[facility] [address] [place] [address] URINALYSISOrdered By: Tomy Houston on 09-30-2023 Bilirubin Ql (U) Negative (09/30/23 11:31 PM) Normal Negative [facility] UA Auto SS Clarity (U) Clear (09/30/23 11:31 PM) Normal Clear [facility] UA Auto SS Color (U) Yellow (09/30/23 11:31 PM) Normal Yellow [facility] UA Auto SS Epithelial cells.squamous LM.HPF (Urine sed) [#/Area] 0-2 /HPF Normal 0-2/HPF [facility] UA Aut o SS Glucose Test strip (U) [Mass/Vol] Negative (09/30/23 11:31 PM) Normal Negative [facility] UA Auto SS Hemoglobin Ql (U) Negative (09/30/23 11:31 PM) Normal Negative [facility] UA Auto SS Ketones (U) [Mass/Vol] Negative (09/30/23 11:31 PM) Normal Negative [facility] UA Auto SS [place].plasma/[place].R BC (Bld) [Mass ratio] 0-3 /HPF Normal 0-3/HPF [facility] UA Au to SS Nitrite Ql (U) Negative (09/30/23 11:31 PM) Normal Negative [facility] UA Auto SS pH (U) 5.5 *NA* (09/30/23 11:31 PM) Invalid Interpretation Code 5.0 - 9.0 [facility] UA Auto SS Protein (U) [Mass/Vol] 1+ *ABN* (09/30/23 11:31 PM) Invalid Interpretation Code Negative [facility] UA Auto SS Specific gravity (U) [Rel density] >=1.030 *NA* (09/30/23 11:31 PM) Invalid Interpretation Code 1.005 - 1.030 [facility] UA Auto SS UA Spec Desc Random Urine (09/30/23 11:31 PM) Normal [facility] UA Auto SS Urobilinogen Qn (U) 0.1834460 {Snow'U}/dL Normal 0.0 - 1.0 EU/dL [facility] UA Auto SS WBC Auto Ql (U) Negative (09/30/23 11:31 PM) Normal Negative [facility] UA Auto SS WBC LM.HPF (Urine sed) [#/Area] 0-5 /HPF Normal 0-5/HPF [facility] UA Auto SS Vanco Troughon 09-30-2023 VANCOMYCIN 7 microgram/mL Low 10-20 [facility] Comment on above: Order Comment: Rando m level Performed By: #### 2 [id number] ####[facility] [address] [place] [address] XR Chest Single Viewon 09-30 XR Chest Single View Exam Date/Time: 09/30/2023 08:30 EST Reason for Exam: P.A.T. Report IMPRESSION: No distinct acute radiographic abnormality. EXAMINATION: XR Chest Single View Clinical History: P.A.T. Comparison: None RESULT: No distinct focal consolidation. Areas of coarsened interstitial lung markings, probably chronic. Areas of probable scarring/atelectasis , especially at the lung bases. No large pleural effusion. No pneumothorax. Normal cardiomediastinal silhouette. Aortic vascular calcifications. Advanced degenerative changes of the left glenohumeral joint. Other degenerative changes. Ordering Provider: Almodovar Ahmad FINAL REPORT Dictated: 09/30/2023 8:49 am Nikko Llamas MD Signed (Electronic Signature): 09/30/2023 8:49 am Signed by: Nikko Llamas MD Transcribed by: KORINA Technologist: DAVID Technical Comments Radiation Dose: Ka,r in mGy = na DAP = na Normal [facility] XR Foot 3+ Views Lefton 09-04 XR Foot 3+ Views Left Exam Date/Time: 09/29/2023 17:36 EST Reason for Exam: Other (please specify) Report IMPRESSION: Soft tissue edema with focal edema over the dorsal aspect of the midfoot as discussed. Refer to the subsequent MRI dictation. No radiographic evidence for acute osteomyelitis. EXAMINATION/TECHNIQU E: XR Foot 3+ Views Left HISTORY: Dorsal left foot infection for one week. Left foot pain and swelling. COMPARISON: MRI 09/29/2023. RESULT: Diffuse soft tissue edema with focal edema or abnormal the dorsal aspect of the midfoot near the tarsometatarsal joints (refer to the subsequent MRI).. No radiographic evidence for osteomyelitis. Advanced degenerative changes of the first MTP joint. Large subchondral cyst at the base of the fourth metatarsal. Chronic appearing deformity of the fifth toe proximal phalanx. Other scattered mild degenerative changes throughout the foot. No other significant abnormality. Ordering Provider: Alondra Camarena FINAL REPORT Dictated: 09/30/2023 8:46 am Nikko Llamas MD. Signed (Electronic Signature): 09/30/2023 8:46 am Signed by: Nikko Llamas MD Transcribed by: KORIAN Technologist: PEDRO LUIS Technical Comments Radiation Dose: Ka,r in mGy = na DAP = na Normal [facility] eGFRon 09-30-2023 GFR/1.73 sq M.predicted among non-blacks MDRD (S/P/Bld) [Vol rate/Area] 38 mL/min/1.73 m2 Low >=59 [facility] Comment on above: Order Comment: Order added by Discern Expert. Result Comment: Barge Pilot amado kidney disease could be indicated at eGFR's of less than 60 mL/min/1.73m2. Kidney failure is indicated at less than 15 mL/min/1.73m2. Performed By: #### 2 [id number], [id number], [id number], [id number], [id number], [id number], [id number] #### [facility] [address] [place] [address] .Manual Abson 09-29-2023 Basophils/Leukocytes Manual cnt (Bld) [Pure # fraction] 1.0 E9/L High 0.0-0.2 [facility] Comment on above: Performed By: #### 2 [id number], [id number], [id number], [id number], [id number], [id number], [id number] #### [facility] [address] [place] [address] Eosinophils/Leukocytes Manual cnt (Bld) [Pure # fraction] 1.0 E9/L High 0.0-0.5 [facility] Comment on above: Performed By: #### 2 448177, 31088030, 0417172, 49490027, 076073915, 6215374, 21419699 #### [facility] [address] [place] [address] Lymphocytes/Leukocytes Manual cnt (Bld) [Pure # fraction] 1.7 E9/L Normal 1.0-4.0 [facility] Comment on above: Performed By: #### 2 748466, 43824409, 8824277, 55005809, 750503711, 5851062, 31203717 #### [facility] [address] [place] [address] Monocytes/Leukocytes Manual cnt (Bld) [Pure # fraction] 1.9 E9/L High 0.2-1.0 [facility] Comment on above: Performed By: #### 2 143233, 43393133, 2070305, 65748152, 103262569, 1013715, 73185986 #### [facility] [address] [place] [address] Neutrophils/Leukocytes Auto (Bld) [Pure # fraction] 18.7 E9/L High 2.0-7.5 [facility] Comment on above: Performed By: #### 2 538368, 98210130, 4160315, 87835734, 436766821, 5509916, 83134375 #### [facility] [address] [place] [address] CBC w/ Auto Diffon 3 Erythrocyte distribution width (RBC) [Ratio] 21.9 % High 10.9-14.2 [facility] Comment on above: Performed By: #### 2 776996, 14465736, 6501129, 25804043, 679950965, 2827413, 82552694 #### [facility] [address] [place] [address] Hematocrit (Bld) [Volume fraction] 46.3 % Normal 37.7-49.0 [facility] Comment on above: Performed By: #### 2 596992, 40352079, 7124403, 53973124, 157475313, 3137007, 17947380 #### [facility] [address] [place] [address] Hemoglobin (Bld) [Mass/Vol] 13.7 g/dL Normal 13.5-17.5 [facility] Comment on above: Performed By: #### 2 066164, 23515541, 8219604, 22273516, 496439323, 0493755, 41776563 #### [facility] [address] [place] [address] MCH (RBC) [Entitic mass] 19.2 pg Low 27.0-34.0 [facility] Comment on above: Performed By: #### 2 849996, 37720223, 5678926, 57443020, 690995721, 1263910, 98507261 #### [facility] [address] [place] [address] MCHC (RBC) [Mass/Vol] 29.6 g/dL Low 31.4-36.0 [facility] Comment on above: Performed By: #### 2 706643, 58540374, 7569561, 44506321, 846380960, 4112310, 08637849 #### [facility] [address] [place] [address] MCV (RBC) [Entitic vol] 64.9 fL Low 80.0-100.0 [facility] Comment on above: Performed By: #### 2 300388, 84731082, 2168028, 27064102, 897253235, 8588169, 85654266 #### [facility] [address] [place] [address] Platelet mean volume (Bld) [Entitic vol] 8.4 fL Normal 6.4-10.8 [facility] Comment on above: Performed By: #### 2 954054, 39620195, 8109814, 08852728, 377435033, 0764196, 74026105 #### [facility] [address] [place] [address] Platelets (Bld) [#/Vol] 2164.0 E9/L Abnormal 150.0-500.0 [facility] Comment on above: Result Comment: Plat elet count verified using smear estimate Results Called To Stef Ragland / KELSEY By Alesia Lim And Read Back For Confirmation On 09/29/2023 182. Results Verified By Repeat Analysis Performed By: #### 2 890721, 58268842, 8130425, 91353551, 625367181, 2850424, 16445224 #### [facility] [address] [place] [address] RBC (Bld) [#/Vol] 7.1 E12/L High 4.3-5.9 [facility] Comment on above: Performed By: #### 2 240204, 35720839, 3694745, 57760018, 427739212, 0870924, 69487831 #### [facility] [address] [place] [address] WBC corrected for nucl RBC Auto (Bld) [#/Vol] 24.3 E9/L High 4.0-11.0 [facility] Comment on above: Performed By: #### 2 785289, 07664941, 9979141, 77043360, 503585722, 2505254, 71623796 #### [facility] [address] [place] [address] CHEMISTRYOrdered By: SYSTEM SYSTEM on 09-29-2023 Cobalamin (Vitamin B12) [Mass/Vol] 942 pg/mL Normal 50 - 1500 pg/mL [facility] Remisol Ferritin [Mass/Vol] 106 ng/mL Normal 24 - 336 ng/mL [facility]isol Comment on above: Interpretive Data: N ORMALS MEN <30 YRS 16-132 ng/mL MEN >30 YRS 8-338 ng/mL WOMEN (PREMEN) 6-104 ng/mL WOMEN (POSTMEN) 12-210 ng/mL Folate [Mass/Vol] ng/mL Normal >=6.7ng/mL [facility] Re misol Iron [Mass/Vol] 25 ug/dL Low 35 - 153 mcg/dL [facility] Remisol Albumin [Mass/Vol] 3.5 g/dL Normal 3.3 - 5.0 gm/dL [facility] Remisol Albumin/Globulin [Mass ratio] 1.1 {ratio} Normal 1.1 - 2.2 [facility] Remisol ALP [Catalytic activity/Vol] 67 [iU]/d Normal 21 - 98 Int._Unit/L [facility] Remisol ALT No additional P-5'-P [Catalytic activity/Vol] 16 [iU]/d Normal 6 - 46 Int._Unit/L [facility] Remisol AST [Catalytic activity/Vol] 23 [iU]/d Normal 5 - 43 Int._Unit/L [facility] Remisol Bilirubin [Mass/Vol] 0.5 mg/dL Normal 0.0 - 1 .1 mg/dL [facility] Remisol CRP [Mass/Vol] 1.1 mg/dL Normal <=1.9mg/dL [facility] Remis ol Globulin (S) [Mass/Vol] 3.1 g/dL Normal 1.4 - 4.0 gm/dL [facility] Remisol Lactate [Mass/Vol] 1.2 mmol/L Normal 0.5 - 2.2 mmol/L [facility] Remisol Protein [Mass/Vol] 6.6 g/dL Normal 6.0 - 7.8 gm/dL [facility] Remisol CMPon 09-29-2023 Albumin [Mass/Vol] 3.5 g/dL Normal 3.3-5.0 [facility] Comment on above: Performed By: #### 2 715068, 47740498, 9861861, 82552496, 205434581, 7459131, 35697752 #### [facility] [address] [place] [address] Albumin/Globulin (S) [Mass conc ratio] 1.1 Normal 1.1-2.2 [facility] Comment on above: Performed By: #### 2 708241, 58754866, 5857921, 72891216, 748858262, 6080030, 45316518 #### [facility] [address] [place] [address] ALP [Catalytic activity/Vol] 67 Int._Unit/L Normal 21-98 [facility] Comment on above: Performed By: #### 2 810707, 41621390, 0684772, 50051649, 519271880, 2704110, 89305775 #### [facility] [address] [place] [address] ALT No additional P-5'-P [Catalytic activity/Vol] 16 Int._Unit/L Normal 6-46 [facility] Comment on above: Performed By: #### 2 783944, 11608849, 8533899, 74660194, 926832524, 4610164, 13787147 #### [facility] [address] [place] [address] AST [Catalytic activity/Vol] 23 Int._Unit/L Normal 5-43 [facility] Comment on above: Performed By: #### 2 374854, 40740156, 4630098, 59880654, 527587325, 0307021, 08356592 #### [facility] [address] [place] [address] Bilirubin [Mass/Vol] 0.5 mg/dL Normal 0.0-1.[address] [facility] Comment on above: Performed By: #### 2 885855, 12237916, 3207986, 74136033, 024734696, 9623819, 68192615 #### [facility] [address] [place] [address] Creatinine [Mass/Vol] 1.8 mg/dL High 0.5-1.3 [facility] Comment on above: Performed By: #### 2 475885, 14065213, 8312337, 71728434, 948032200, 7681231, 41868795 #### [facility] [address] [place] [address] Globulin (S) [Mass/Vol] 3.1 g/dL Normal 1.4-4.0 [facility] Comment on above: Performed By: #### 2 892958, 98638849, 8388412, 89336597, 505526198, 1528369, 97939219 #### [facility] [address] [place] [address] Protein [Mass/Vol] 6.6 g/dL Normal 6.0-7.8 [facility] Comment on above: Performed By: #### 2 498812, 39174432, 7197363, 49953965, 077002098, 3883136, 10481866 #### [facility] [address] [place] [address] Urea nitrogen [Mass/Vol] 31 mg/dL High 5-21 [facility] Comment on above: Performed By: #### 2 485172, 16886592, 8811102, 09211803, 079893187, 6090611, 18731034 #### [facility] [address] [place] [address] Urea nitrogen/Creatinine [Mass ratio] 17 No Units Normal 10-20 [facility] Comment on above: Performed By: #### 2 746863, 94824623, 4104571, 29626225, 477086549, 9744807, 95546991 #### [facility] [address] [place] [address] Anion gap [Moles/Vol] 9 mmol/L Normal 6-16 [facility] Comment on above: Performed By: #### 2 913557, 05561043, 5386309, 17744073, 473035969, 3178575, 12330538 #### [facility] [address] [place] [address] Calcium [Mass/Vol] 8.9 mg/dL Normal 8.9-11.1 [facility] Comment on above: Performed By: #### 2 726870, 99610030, 6021357, 11028068, 398781726, 5434282, 44183353 #### [facility] [address] [place] [address] Chloride [Moles/Vol] 109 mmol/L Normal 101-111 [facility] Comment on above: Performed By: #### 2 006635, 41957299, 4086581, 63053600, 468632812, 9571774, 80382039 #### [facility] [address] [place] [address] CO2 [Moles/Vol] 25 mmol/L Normal 21-31 [facility] Comment on above: Performed By: #### 2 623390, 65980119, 4080700, 04439741, 447282385, 9199923, 35900930 #### [facility] [address] [place] [address] Glucose [Mass/Vol] 96 mg/dL Normal 55-199 [facility] Comment on above: Result Comment: If t his glucose result represents a fasting glucose, interpretation should refer to the following reference range: 55-99 mg/dL Performed By: #### 2 495242, 30250191, 5377928, 88620347, 644426512, 1337675, 52952793 #### [facility] [address] [place] [address] Potassium [Moles/Vol] 3.8 mmol/L Normal 3.5-5.3 [facility] Comment on above: Performed By: #### 2 286530, 48729274, 4801758, 22518843, 542016972, 6855318, 07685053 #### [facility] [address] [place] [address] Sodium [Moles/Vol] 139 mmol/L Normal 135-145 [facility] Comment on above: Performed By: #### 2 545707, 84571053, 4913669, 19088585, 865523606, 5187269, 15926204 #### [facility] [address] [place] [address] COAGULATIONOrdered By: Augustin Mahoney on 09-29-2023 aPTT Coag (PPP) [Time] 41.4 s High 25.1 - 36.5 second(s) [facility] Auto Coag Comment on above: Interpretive Data: P arameter 15 days - 4 weeks 1 - 5 months 6 - 11 months 1 - 5 years 6 - 10 years 11 - 17 years PTT Mean: 35.4 (27.6-45.6) Mean: 33.5 (24.8-40.7) Mean: 32.4 (25.1-40.7) Mean: 31.6 (24.0-39.2) Mean: 31.6 (26.9-38.7) Mean: 31.0 (24.6-38.4) Pediatric Reference ranges were obtained from a study by Gage Beavers et al. prepared from 1437 samples obtained at 7 different centers using the same coagulation reagent and instrumentation as [facility]. Currently there are no coagulation studies available worldwide for children to 14 days, and no normal ranges. Heparin therapeutic range (represented by Anti-Factor Xa activity of 0.2 - 0.4 U/mL) corresponds to PTT of 56.6 - 109.0 sec. INR Coag (PPP) [Relative time] 1.4 {INR} Invalid Interpretation Code [facility] Auto Coag Comment on above: Interpretive Data: I NR results are specifically intended to assess patients stabilized on long-term Anticoagulation therapy suggested INR s Less Intensive Anticoagulation 2.0 3.0 Conventional Range 3.0 4.5 PT Coag (PPP) [Time] 15.4 s High 9.4 - 1 2.5 second(s) [facility] Auto Coag Comment on above: Interpretive Data: 1 5 days - 4 weeks 1 - 5 months 6 -11 months 1-5 years 6-10 years 11 -17 years Mean: 11.2 (9.5-12.6) Mean: 11.0 (9.7-12.8) Mean: 11.0 (9.8-13.0) Mean: 11.3 (9.9-13.4) Mean: 11.7 (10.0-14.6) Mean: 11.8 (10.0 - 14.1) Pediatric Reference ranges were obtained from a study by zen Rodriguez al. prepared from 1437 samples obtained at 7 different centers using the same coagulation reagent and instrumentation as [facility]. Currently there are no coagulation studies available worldwide for children to 14 days, and no normal ranges. CRPon 09-29-2023 CRP [Mass/Vol] 1.1 mg/dL Normal <=1.9 [facility] Comment on above: Performed By: #### 2 968229, 84318397, 0769995, 73557771, 307111974, 7246302, 16794550 #### [facility] [address] [place] [address] Consent for Treatmenton 09-04 Consent for Treatment [id number] #[id number] Normal [facility] ED Clinical Summaryon 2022 ED Clinical Summary [address] [address] ED Clinical Summary Person Information Name: CAROLINAYANGVIKAS/[facility] Age: 82 Years : 1940 Sex: Male Language: Malagasy PCP: JUSTIN CARUSO Marital Status: Single Visit Id: Visit Reason: Wound infection - complicated; LEFT FT - SENT BY [facility] Speciality: Acuity: 3 Enc Type: Observation Med Service: Emergency Arrival: 09/29/2023 16:15:49 Discharge: LOS: 000 04:32 Checkin: 09/29/2023 16:15:49 Checkout: 09/29/2023 20:47:13 Dispo Type: Admitted as IP to this [facility] EVENTS: Event Name Event Status Request Date/Time Start Date/Time Complete Date/Time Arrive Complete 09/29/2023 16:15:49 09/29/2023 16:15:49 09/29/2023 16:15:49 Document Home Meds Request 09/29/2023 16:15:49 Triage Complete 09/29/2023 16:15:49 09/29/2023 16:31:21 09/29/2023 16:31:21 Bed Assign Complete 09/29/2023 16:23:09 09/29/2023 16:23:09 09/29/2023 16:23:09 Dr Exam Complete 09/29/2023 16:23:09 09/29/2023 16:27:06 09/29/2023 16:27:06 RN Exam Complete 09/29/2023 16:23:09 09/29/2023 17:23:06 09/29/2023 17:23:06 Registration Complete 09/29/2023 16:27:06 09/29/2023 17:35:21 09/29/2023 17:35:21 Dr Exam Complete 09/29/2023 16:29:43 09/29/2023 16:29:43 09/29/2023 16:29:43 Patient Care Complete 09/29/2023 16:52:16 09/29/2023 17:18:21 Pending Labs Complete 09/29/2023 16:52:16 09/29/2023 18:35:24 Lab Complete 09/29/2023 16:52:16 09/29/2023 18:35:24 Pending Labs Cancel 09/29/2023 16:52:50 09/29/2023 17:21:08 Lab Cancel 09/29/2023 16:52:50 09/29/2023 17:21:00 Pending Labs Inlab 09/29/2023 16:53:34 Lab Inlab 09/29/2023 16:53:34 X-Ray Complete 09/29/2023 16:54:13 09/29/2023 17:09:17 09/29/2023 17:36:56 US Complete 09/29/2023 16:54:13 09/29/2023 17:53:23 Meds Admin Complete 09/29/2023 16:55:43 09/29/2023 19:49:52 Pending Labs Complete 09/29/2023 17:20:17 09/29/2023 17:20:17 09/29/2023 17:44:32 Lab Complete 09/29/2023 17:20:17 09/29/2023 17:20:17 09/29/2023 17:44:32 Pending Labs Complete 09/29/2023 17:21:35 09/29/2023 17:21:35 09/29/2023 18:26:11 Lab Complete 09/29/2023 17:21:35 09/29/2023 17:21:35 09/29/2023 17:44:31 Pending Labs Complete 09/29/2023 17:23:32 09/29/2023 17:23:32 09/29/2023 17:23:33 Reg Complete Request 09/29/2023 17:35:21 Reg Bed Request Complete 09/29/2023 17:35:21 09/29/2023 17:35:21 09/29/2023 17:35:21 Wet Read Request 09/29/2023 17:36:56 Meds Admin Cancel 09/29/2023 18:12:35 09/29/2023 19:49:52 Pending Labs Complete 09/29/2023 18:23:34 09/29/2023 18:23:34 09/29/2023 18:35:24 Lab Complete 09/29/2023 18:23:34 09/29/2023 18:23:34 09/29/2023 18:35:24 Pending Labs Complete 09/29/2023 18:23:34 09/29/2023 18:23:34 09/29/2023 18:35:24 Pending Labs Inlab 09/29/2023 18:35:24 09/29/2023 18:35:24 Pending Labs Complete 09/29/2023 18:56:44 09/29/2023 19:49:59 Lab Complete 09/29/2023 18:56:44 09/29/2023 19:49:59 Bed Request Request 09/29/2023 19:18:03 Reg Bed Request Complete 09/29/2023 19:18:03 09/29/2023 19:20:23 09/29/2023 19:20:23 Admit Request 09/29/2023 19:18:03 Consult Request 09/29/2023 19:19:21 Hospitalist Consult Request 09/29/2023 19:19:21 Patient Care Request 09/29/2023 19:20:24 Patient Care Request 09/29/2023 19:20:24 Patient Care Request 09/29/2023 19:20:24 Patient Care Request 09/29/2023 19:20:24 Meds Admin Complete 09/29/2023 19:27:08 09/29/2023 19:34:07 Consult Request 09/29/2023 19:46:36 Meds Admin Request 09/29/2023 19:46:36 NPO Request 09/29/2023 19:46:36 Meds Admin Request 09/29/2023 19:49:52 Patient Care Request 09/29/2023 19:49:52 Pending Labs Request 09/29/2023 19:49:52 Lab Request 09/29/2023 19:49:52 MRI Start 09/29/2023 19:51:05 09/29/2023 20:43:56 Pending Labs Request 09/29/2023 19:51:14 Meds Admin Request 09/29/2023 19:54:47 Pending Labs Request 09/29/2023 20:06:22 Lab Request 09/29/2023 20:06:22 ADDRESS: [facility] [address] [place] [phone] PHYS DOC NOTES: MEDICAL INFORMATION: Prescriptions Given: PATIENT EDUCATION INFORMATION: Instructions: Follow up: DIAGNOSIS: 1:Abscess of left foot excluding toes; 2:Thrombocytosis; 3:JOSELINE (acute kidney injury) Normal [facility] ED Note-Physicianon 09-29-20 ED Note-Physician Basic Information Time Seen: Nicol JACOBSON Alondra MyersAline 09/29/2023 16:27 Chief Complaint pt reports left foot infection for one week, was sent to ed to be admitted History of Present Illness 82-year-old male with no past medical history, but he also has not been seen by family doctor in years presents with an infection to his left foot and was sent here by Dr. Quinteros for surgical intervention. He states that this has been ongoing for the past week he just got into the [facility] office today. 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 He states that he has not seen a doctor recently and he tried to a couple years ago. Denies temperature or sensation changes. Denies fever, n/v/d Review of Systems Review of systems negative unless otherwise stated in HPI Physical Exam Vitals & Measurements T: 36.7 ?C(Oral) HR: 91(Monitored) RR: 18 BP: 171/114 SpO2: 95% HT: 167 cm WT: 62 kg BMI: 22.23 PHYSICAL EXAM: GENERAL: ALERT, NO ACUTE DISTRESS SKIN: WARM, DRY, INTACT; NO CYANOSIS, NO ECCHYMOSIS, erythema to the top of the foot excluding toes extending into the distal lower leg with fluctuance and pus to the top of the foot, no open wounds or drainage, no streaking HEAD: NORMOCEPHALIC, ATRAUMATIC NECK: SUPPLE, TRACHEA MIDLINE, FROM RESPIRATORY: NON-LABORED RESPIRATIONS, SYMMETRICAL EXPANSION EXTREMITIES: NO CYANOSIS, NO EDEMA, FROM ALL EXTREMITIES X 4, PULSES INTACT, NORMAL STRENGTH, NO DEFORMITY, CAPILLARY REFILL INTACT NEUROLOGICAL: A&OX3, SENSORY INTACT PSYCHIATRIC: COOPERATIVE, APPROPRIATE MOOD AND AFFECT Medical Decision Making Per medical laboratory technologist, negative for DVT. Blood cultures pending. He is given Vanco and Zosyn. Creatinine 1.8. WBC 24.3. Platelets 2164. Iron studies ordered and pending. 77 segs. Last labs are from 4 years ago and was normal at this time. No other significant lab normalities. He is started on maintenance fluids. No acute findings on prelim x-ray. Case discussed with the hospitalist who accepts admission. Assessment/Plan 1. Abscess of left foot excluding toes (L02.612: Cutaneous abscess of left foot) 2. Thrombocytosis (D75.839: Thrombocytosis, unspecified) Orders: acetaminophen, 650 mg = 2 tab(s), Tab, Oral, Once, Stop date 09/29/23 19:26:00 EST, STAT, Start date 09/29/23 19:26:00 EST, 09/29/23 19:26:00 EST piperacillin-tazobac de leon + Sodium Chloride 0.9% intravenous solution 50 mL, 3.375 gm = 1 EA, IV Piggyback, q6hrFT, STAT, Start date 09/29/23 16:55:00 EST, 100 mL/hr, Infuse over 30 minute(s), 09/29/23 16:55:00 EST Sodium Chloride 0.9% intravenous solution 1,000 mL, 1,000 mL, IV, 150 mL/hr, STAT, Start date 09/29/23 18:12:00 EST, 6.7 hour(s), Total volume (mL): 1,000, 62 kg, 1.7, m2 vancomycin + Generic Diluent 250 mL, Reason for Vancomycin: MRSA colonization or infection, 1,250 mg = 250 mL, Soln-IV, IV Piggyback, Once, Stop date 09/29/23 17:00:00 EST, Routine, Start date 09/29/23 17:00:00 EST, Infuse over 90 minute(s) .Manual Abs Blood Culture Charcoal Blood Culture Charcoal C-Reactive Protein CBC w/ Auto Diff Comprehensive Metabolic Panel ED Physician consult Hospitalist for continued care eGFR Extra SST Tube Ferritin Folate Level Iron Level Lactic Acid Magnesium Level Manual Diff Path. Review PT & PTT Saline Lock Insert Sedimentation Rate Automated US LE Venous Duplex Left Vitamin B12 Level XR Foot 3+ Views Left Medications Administered Given Sodium Chloride 0.9% intravenous solution 50 mL + piperacillin-tazobac de leon additive 3.375 gm, IV Piggyback vanc1.25SOL [F] 1250 mg + GenDil 250 mL, IV Piggyback Disposition Plan Patient Discharge Condition Stable Discharge Disposition Home Discharge Prescription List Prescriptions No active prescription medications Follow-up No qualifying data available Attestation This visit was performed by both the physician and an APC. I performed all aspects of the MDM as documented. Problem List/Past Medical History Ongoing No qualifying data Historical No qualifying data Medications Inpatient piperacillin-tazobac de leon additive + Sodium Chloride 0.9% intravenous solution 50 mL Sodium Chloride 0.9% IV Viki 1000 mL 1,000 mL, 1000 mL, IV Tylenol 325 mg Tab, 650 mg= 2 tab(s), Oral, Once Home No active home medications Allergies No Known Allergies Social History Alcohol Current, Beer, 1-2 times per year, 09/29/2023 Current, 11/12/2018 Substance Abuse Current, 09/29/2023 Current, 11/12/2018 Tobacco Former smoker, quit more than 30 days ago Tobacco Use:., 09/29/2023 Never (less than 100 in lifetime) Tobacco Use:., 11/12/2018 Lab Results WBC: 24.3 E9/L High (09/29/23 17:13:00) RBC: 7.1 E12/L High (09/29/23 17:13:00) HGB: 13.7 gm/dL (09/29/23 17:13:00) Hct: 46.3 % (09/29/23 17:13:00) MCV: 64.9 fL Low (09/29/23 17:13:00) MCH: 19.2 pg Low (09/29/23 17:13:00) MCHC: 29.6 gm/dL Low (09/29/23 17:13:00) RDW: 21.9 % High (09/29/23 17:13 (more content not included)... Normal [facility] Comment on above: Result Comment: Elec tronically Signed By: Alondra Camarena PA-C\.br\Date and Time Signed: 09/29/23 19:30 EST\.br\Electronically Co-Signed By: Samantha Gaffney M.D.\.br\Date and Time Co-Signed: 09/29/23 19:57 EST ED Patient Education Noteon 09-29-2023 ED Patient Education Note Normal [facility] ED Patient Summaryon 023 ED Patient Summary [address] [id number] Patient Discharge Instructions Person Information Name: VIKAS GRIMALDO Age: 82 Years Arrival Date: 09/29/2023 16:15:49 Discharge Diagnosis: 1:Abscess of left foot excluding toes; 2:Thrombocytosis; 3:JOSELINE (acute kidney injury) Primary Care Physician: JUSTIN CARUSO Provider Information Primary Provider: Samantha Gaffney M.D. Advanced Faculty Member:None The exam and treatment you received in the Emergency Department were for an urgent problem and are not intended as complete care. It is important that you follow up with a doctor, nurse practitioner, or physician?s assistant portfolio manager for ongoing care. If your symptoms become worse or you do not improve as expected and you are unable to reach your usual health care provider, you should return to the Emergency Department. We are available 24 hours a day. VIKAS GRIMALDO has been given the following list of patient education materials, prescriptions and follow-up instructions: Follow-up Instructions: In the event that this physician does not participate in your insurance network, please consult with your insurance company to find a nearby participating provider. Patient Education Materials: A MESSAGE TO ALL PATIENTS REGARDING OPIOIDS PRESCRIPTION OPIOIDS: WHAT YOU NEED TO KNOW Prescription opioids can be used to help relieve uyffwefc-lt-lavnah pain and are often prescribed following a surgery or injury, or for certain health conditions. These medications can be an important part of the treatment but also come with serious risks. It is important to work with your healthcare provider to make sure you are getting the safest, most effective care. WHAT ARE THE RISKS AND SIDE EFFECTS OF OPIOID USE? Prescription opioids carry serious risks of addiction and overdose, especially with prolonged use. An opioid overdose, often marked by slowed breathing, can cause sudden . The use of prescription opioids can have a number of side effects as well, even when taken as directed: ? Tolerance?meaning you might need to take more of the medication for the same pain relief ? Physical dependence?meaning you have symptoms of withdrawal when a medication is stopped ? Increased sensitivity to pain ? Constipation ? Nausea, vomiting, and dry mouth ? Sleepiness and dizziness ? Confusion ? Depression ? Low levels of testosterone that can result in lower sex drive, energy, and strength ? Itching and sweating RISKS ARE GREATER WITH: ? History of drug misuse, substance use disorder, or overdose ? Mental health conditions (such as depression or anxiety) ? Sleep apnea ? Older age (65 years and older) ? Avoid alcohol while taking prescription opioids. Also, unless specifically advised by your health care provider, medications to avoid include: ? Benzodiazepines (such as Xanax or Valium) ? Muscle relaxants (such as Soma or Flexeril) ? Hypnotics (such as Ambien or Lunesta) ? Other prescription opioids KNOW YOUR OPTIONS Talk to your health care provider about ways to manage your pain that don?t involve prescription opioids. Some of these options may actually work better and have fewer risks and side effects. Options may include: ? Pain relievers such as acetaminophen, ibuprofen, and naproxen ? Some medication that are also used for depression or seizures ? Physical therapy and exercise ? Cognitive behavioral therapy, a psychological, goal-directed approach, in which patients learn how to modify physical, behavioral, and emotional triggers of pain and stress. IF YOU ARE PRESCRIBED OPIOIDS FOR PAIN: ? Never take opioids in greater amounts or more often than prescribed. ? Follow up with your primary health care provider. o Work together to create a plan on how to manage your pain. o Talk about ways to help manage your pain that don?t involve prescription opioids. o Talk about any and all concerns and side effects. ? Help prevent misuse and abuse o Never sell or share prescription opioids. o Never use another person?s prescription opioids. ? Store prescription opioids in a secure place and out of reach of others (this may include visitors, children, friends, and family). ? Safely dispose of unused prescription opioids: Find your community drug take-back program or your pharmacy mail-back program, or flush them down the toilet, following guidance from the Food and Drug Administration (www.fda.gov/Drugs/R esourcesForYou). ? Visit www.cdc.gov/drugover dose to learn about the risks of opioids abuse and overdose. ? If you believe you may be struggling with addiction, tell your health healthcare facility administrator and ask for guidance or call SAMHSA?S National Helpline at 1-693-940-HELP. v Source: [place] Department of Health and Human Services/Center for Disease Control & Prevention [facility] (more content not included)... Normal [facility] Ferritinon 09-29-2023 Ferritin [Mass/Vol] 106 ng/mL Normal 24-336 [facility] Comment on above: Result Comment: NORM ALS MEN <30 YRS 16-132 ng/mL MEN >30 YRS 8-338 ng/mL WOMEN (PREMEN) 6-104 ng/mL WOMEN (POSTMEN) 12-210 ng/mL Performed By: #### 2 209018, [id number], 1826530, 80315937, [id number], 6346296, [id number] #### [facility] [address] [place] [address] Folateon 09-29-2023 Folate [Mass/Vol] ng/mL Normal >=6.7 [facility] Comment on above: Performed By: #### 2 652531, [id number], 9430104, 67406612, [id number], 8528689, [id number] #### [facility] [address] [place] [address] HEMATOLOGYOrdered By: Maciej iLm on 09-29-2023 Band form neutrophils/100 WBC (Bld) 0 % Normal 0 - 10 % [facility] Basophils/100 WBC (Bld) 4 % High 0 - 2 % [facility] Basophils/Leukocytes Manual cnt (Bld) [Pure # fraction] 1.0 E9/L High 0.0 - 0.2 E9/L [facility] Eosinophils/100 WBC (Bld) 4 % Normal 0 - 8 % [facility] Eosinophils/Leukocytes Manual cnt (Bld) [Pure # fraction] 1.0 E9/L High 0.0 - 0.5 E9/L [facility] ESR (Bld) [Velocity] 9 mm/h Normal 0 - 19 mm/hr [facility] Lymphocytes/100 WBC (Bld) 6 % Low 14 - 50 % [facility] Lymphocytes/Leukocytes Manual cnt (Bld) [Pure # fraction] 1.7 E9/L Normal 1.0 - 4.0 E9/L [facility] Monocytes/100 WBC (Bld) 8 % Normal 4 - 14 % [facility] Monocytes/Leukocytes Manual cnt (Bld) [Pure # fraction] 1.9 E9/L High 0.2 - 1.0 E9/L [facility] Neutrophils/Leukocytes Auto (Bld) [Pure # fraction] 18.7 E9/L High 2.0 - 7.5 E9/L [facility] Nucleated cells (Bld) [#/Vol] 2 1 High <=0 [facility] Polychromasia LM Ql (Bld) Present (09/29/23 5:13 PM) Normal [facility] Segmented neutrophils/100 WBC (Bld) 77 % High 36 - 75 % [facility] Variant lymphocytes LM Ql (Bld) 1 % High <=0% [facility] HEMATOLOGYOrdered By: Alyssa Butler on 09-29-2023 Path Review Granulocytic leukocytosis with monocytosis and mild basophilia. Anemia with marked anisopoikilocytosis, target cells, ovalocytes and polychromasia. Clinical correlation is indicated for etiology. Thrombocytosis with giant platelets.[id number] [id number] Invalid Interpretation Code [facility] [facility] Ironon 09-29-2023 Iron [Mass/Vol] 25 microgram/dL Low 35-153 [facility] Comment on above: Performed By: #### 2 590513, [id number], 8537302, 16634336, 142216375, 2227637, 11830833 #### [facility] [address] [place] [address] Lactic Acidon 09-29-2023 Lactate [Mass/Vol] 1.2 mmol/L Normal 0.5-2.2 [facility] Comment on above: Performed By: #### 2 952075, 36289984, 9229039, 61338572, 243977409, 7590422, 44274833 #### [facility] [address] [place] [address] Magnesiumon 09-29-2023 Magnesium [Mass/Vol] 1.9 mg/dL Normal 1.3-2.4 [facility] Comment on above: Performed By: #### 2 501970, 78738315, 4310801, 93170156, 013718702, 6969608, 06573102 #### [facility] [address] [place] [address] Manual Diffon 09-29-2023 Anisocytosis Ql (Bld) Present Normal [facility] Comment on above: Order Comment: Order Added by Discern Expert. Performed By: #### 2 759094, 31006612, 4766119, 24585074, 732947611, 7912387, 56448773 #### [facility] [address] [place] [address] Band form neutrophils/100 WBC (Bld) 0 % Normal 0-10 [facility] Comment on above: Order Comment: Order Added by Discern Expert. Performed By: #### 2 130393, 74340204, 3309150, 55876938, 647474807, 5671567, 72558936 #### [facility] [address] [place] [address] Basophils/100 WBC (Bld) 4 % High 0-2 [facility] Comment on above: Order Comment: Order Added by Discern Expert. Performed By: #### 2 493707, 04353255, 6717574, 27625461, 667256008, 3959646, 17702943 #### [facility] [address] [place] [address] Eosinophils/100 WBC (Bld) 4 % Normal 0-8 [facility] Comment on above: Order Comment: Order Added by Discern Expert. Performed By: #### 2 404642, 17208007, 6975851, 74170609, 099380079, 7434655, 99822232 #### [facility] [address] [place] [address] Hypochromia Auto Ql (Bld) Present Normal [facility] Comment on above: Order Comment: Order Added by Discern Expert. Performed By: #### 2 031832, 57837320, 4334500, 93473345, 326206438, 9747984, 94146082 #### [facility] [address] [place] [address] Lymphocytes/100 WBC (Bld) 6 % Low 14-50 [facility] Comment on above: Order Comment: Order Added by Discern Expert. Performed By: #### 2 196408, 66018303, 4341408, 06077088, 611188962, 6938886, 63123471 #### [facility] [address] [place] [address] Microcytes Ql (Bld) Present Normal [facility] Comment on above: Order Comment: Order Added by Discern Expert. Performed By: #### 2 549657, 60643028, 7901076, 36553760, 718111534, 7025521, 51874364 #### [facility] [address] [place] [address] Monocytes/100 WBC (Bld) 8 % Normal 4-14 [facility] Comment on above: Order Comment: Order Added by Discern Expert. Performed By: #### 2 724001, 56124374, 1399146, 43048430, 930425486, 1092370, 35420084 #### [facility] [address] [place] [address] Morphology Panfilo (Bld) [Interp] See Morphology Normal [facility] Comment on above: Order Comment: Order Added by Discern Expert. Performed By: #### 2 512642, 00147277, 3347500, 33381741, 879790948, 3414510, 29525357 #### [facility] [address] [place] [address] Nucleated cells (Bld) [#/Vol] 2 High <=0 [facility] Comment on above: Order Comment: Order Added by Discern Expert. Performed By: #### 2 060253, 58489689, 6240927, 56946544, 035920348, 4951517, 97415754 #### [facility] [address] [place] [address] Ovalocytes LM Ql (Bld) Present Normal [facility] Comment on above: Order Comment: Order Added by Discern Expert. Performed By: #### 2 809517, 59423234, 6495293, 19614382, 760889164, 6983367, 29806093 #### [facility] [address] [place] [address] Platelets Large LM Ql (Bld) Present Normal [facility] Comment on above: Order Comment: Order Added by Discern Expert. Performed By: #### 2 369378, 82417145, 1649576, 60068296, 823192284, 3700829, 69709193 #### [facility] [address] [place] [address] Polychromasia LM Ql (Bld) Present Normal [facility] Comment on above: Order Comment: Order Added by Discern Expert. Performed By: #### 2 075272, 08146793, 8173922, 96144249, 811012262, 2591381, 67363314 #### [facility] [address] [place] [address] Segmented neutrophils/100 WBC (Bld) 77 % High 36-75 [facility] Comment on above: Order Comment: Order Added by Discern Expert. Performed By: #### 2 394561, 35009266, 8017483, 18784255, 228410669, 3038395, 01513728 #### [facility] [address] [place] [address] Variant lymphocytes LM Ql (Bld) 1 % High <=0 [facility] Comment on above: Order Comment: Order Added by Discern Expert. Performed By: #### 2 246531, 50419215, 7692069, 08726566, 536969929, 2336827, 93502914 #### [facility] [address] [place] [address] No Panel InformationOrdered By: ANGPROCESSSERVER MICROBIOLOGY on 09-29-2023 Blood Culture Charcoal No growth at 4 da ys. Final to follow at 7 days. [facility] Blood Culture Charcoal No growth at 4 da ys. Final to follow at 7 days. [facility] PT & PTTon 09-29-2023 aPTT Coag (PPP) [Time] 41.4 second(s) High 25.1-36.5 [facility] Comment on above: Result Comment: Para meter 15 days - 4 weeks 1 - 5 months 6 - 11 months 1 - 5 years 6 - 10 years 11 - 17 years PTT Mean: 35.4 (27.6-45.6) Mean: 33.5 (24.8-40.7) Mean: 32.4 (25.1-40.7) Mean: 31.6 (24.0-39.2) Mean: 31.6 (26.9-38.7) Mean: 31.0 (24.6-38.4) Pediatric Reference ranges were obtained from a study by Gage Beavers et al. prepared from 1437 samples obtained at 7 different centers using the same coagulation reagent and instrumentation as [facility]. Currently there are no coagulation studies available worldwide for children to 14 days, and no normal ranges. Heparin therapeutic range (represented by Anti-Factor Xa activity of 0.2 - 0.4 U/mL) corresponds to PTT of 56.6 - 109.0 sec. Performed By: #### 2 171417, 27857979, 2251514, 09872518, 259892647, 5313155, 36999137 #### [facility] [address] [place] [address] INR Coag (PPP) [Relative time] 1.4 {INR} Invalid Interpretation Code [facility] Comment on above: Result Comment: INR results are specifically intended to assess patients stabilized on long-term Anticoagulation therapy suggested INR?s ?Less Intensive Anticoagulation? 2.0 ? 3.0 Conventional Range 3.0 ? 4.5 Performed By: #### 2 483016, 11016961, 9730875, 58704747, 414639834, 1139936, 15642895 #### [facility] [address] [place] [address] PT Coag (PPP) [Time] 15.4 second(s) High 9.4-12.5 [facility] Comment on above: Result Comment: 15 d ays - 4 weeks 1 - 5 months 6 -11 months 1-5 years 6-10 years 11 -17 years Mean: 11.2 (9.5-12.6) Mean: 11.0 (9.7-12.8) Mean: 11.0 (9.8-13.0) Mean: 11.3 (9.9-13.4) Mean: 11.7 (10.0-14.6) Mean: 11.8 (10.0 - 14.1) Pediatric Reference ranges were obtained from a study by Gage Beavers et al. prepared from 1437 samples obtained at 7 different centers using the same coagulation reagent and instrumentation as [facility]. Currently there are no coagulation studies available worldwide for children to 14 days, and no normal ranges. Performed By: #### 2 460904, 55770170, 4915404, 72960356, 513829523, 6576345, 84486754 #### [facility] [address] [place] [address] Progress Note - Pharmacyon 1 11-29-2022 Progress Note - Pharmacy Vancomycin Phar kirstie to Dose Consult Note Indication: Skin and Skin Structure Infection Goal Range: Trough: 10 - 20 RECOMMENDATIONS/ PLAN: Pharmacy consulted for vancomycin dosing for VIKAS GRIMALDO, a 82 Years old, Male who is being treated with vancomycin for abscess of foot. 1. Vancomycin therapy is still active, today is day 0 of treatment. Patient received Vancomycin 1250 mg IV once in the ED. 2. No Vancomycin level has been drawn for this dosing regimen. 3. Initial Vancomycin Dosing Regimen: Patient's scr is 1.8, the last scr on file was from 4 years ago, which was normal. Plan to dose by levels initially. 4. The next level is scheduled for 09/30/23 on 1800, 24 hours after the initial dose. 5. A MRSA Nasal Swab is not appropriate at this time. We will follow patient renal function, vancomycin levels and doses with you during the course of therapy. Additional recommendations will appear in follow up notes. If you have any questions, please contact the pharmacy at [phone]. Age: 82 Years Allergies: No Known Allergies Weight:Last Documented Weight and Type of Scale Used Last Documented Weight Weight Measured: 62 kg (09/29/23 16:28:00) Height: Last Documented Height/Length Last Documented Height/Length Height/Length Measured: 167 cm (09/29/23 16:28:00) CrCl: 29 mL/min Labs: WBC: 24.3 E9/L High (09/29/23 17:13:00) RBC: 7.1 E12/L High (09/29/23 17:13:00) HGB: 13.7 gm/dL (09/29/23 17:13:00) Hct: 46.3 % (09/29/23 17:13:00) MCV: 64.9 fL Low (09/29/23 17:13:00) MCH: 19.2 pg Low (09/29/23 17:13:00) MCHC: 29.6 gm/dL Low (09/29/23 17:13:00) RDW: 21.9 % High (09/29/23 17:13:00) Platelet: 2164 E9/L Critical (09/29/23 17:13:00) MPV: 8.4 fL (09/29/23 17:13:00) Segs Man: 77 % High (09/29/23 17:13:00) Band Man: 0 % (09/29/23 17:13:00) Lymph Man: 6 % Low (09/29/23 17:13:00) Monocyte Man: 8 % (09/29/23 17:13:00) Eos Man: 4 % (09/29/23 17:13:00) Basophil Man: 4 % High (09/29/23 17:13:00) React Lymph Man: 1 % High (09/29/23 17:13:00) NRBC Man: 2 High (09/29/23 17:13:00) Segs Abs Man: 18.7 E9/L High (09/29/23 17:13:00) Lymph Abs Man: 1.7 E9/L (09/29/23 17:13:00) Knox Abs Man: 1.9 E9/L High (09/29/23 17:13:00) Eos Abs Man: 1 E9/L High (09/29/23 17:13:00) Basophil Abs Man: 1 E9/L High (09/29/23 17:13:00) Sed Rate Automated: 9 mm/hr (09/29/23 17:13:00) RBC Morph: See Morphology (09/29/23 17:13:00) Anisocytosis: Present (09/29/23 17:13:00) Microcyte: Present (09/29/23 17:13:00) Hypochromasia: Present (09/29/23:13:00) Polychromasia: Present (09/29/23 17:13:00) Ovalocytes: Present (09/29/23 17:13:00) Large Plt: Present (09/29/23:13:00) PT: 15.4 second(s) High (09/29/23:13:00) INR: 1.4 (09/29/23:13:00) PTT: 41.4 second(s) High (09/29/23:13:00) Glucose Lvl: 96 mg/dL (09/29/23:13:00) BUN: 31 mg/dL High (09/29/23:13:00) Creatinine: 1.8 mg/dL High (09/29/23:13:00) eGFR: 38 mL/min/1.73 m2 Low (09/29/23 17:13:00) BUN/Creat Ratio: 17 (09/29/23 17:13:00) Sodium Lvl: 139 mmol/L (09/29/23:13:00) Potassium Lvl: 3.8 mmol/L (09/29/23:13:00) Chloride: 109 mmol/L (09/29/23 17:13:00) CO2: 25 mmol/L (09/29/23:13:00) AGAP: 9 mEq/L (09/29/23:13:00) Calcium Lvl: 8.9 mg/dL (09/29/23 17:13:00) Alk Phos: 67 Int._Unit/L (09/29/23 17:13:00) ALT: 16 Int._Unit/L (09/29/23 17:13:00) AST: 23 Int._Unit/L (09/29/23 17:13:00) Total Protein: 6.6 gm/dL (09/29/23 17:13:00) Albumin Lvl: 3.5 gm/dL (09/29/23 17:13:00) Globulin: 3.1 gm/dL (09/29/23 17:13:00) A/G Ratio: 1.1 (09/29/23 17:13:00) Bili Total: 0.5 mg/dL (09/29/23 17:13:00) Lactic Acid Lvl: 1.2 mmol/L (09/29/23 17:13:00) Magnesium: 1.9 mg/dL (09/29/23 17:13:00) CRP: 1.1 mg/dL (09/29/23 17:13:00) Iron: 25 mcg/dL Low (09/29/23 19:11:00) Vitamin B12 Lvl: 942 pg/mL (09/29/23 19:11:00) Folate Lvl: >22.3 (09/29/23 19:11:00) Ferritin Lvl: 106 ng/mL (09/29/23 19:11:00) Normal [facility] RAD - MRI Screening Formon 1 11-29-2022 RAD - MRI Screening Form [id number]#[id number] Normal [facility] Sed Rate Automatedon 023 ESR (Bld) [Velocity] 9 mm/h Normal 0-[address] [facility] Comment on above: Performed By: #### 2 230925, [id number], 8856872, 36016347, [id number], 7032782, 88076906 #### [facility] [address] [place] [address] US LE Venous Duplex Lefton 1 11-29-2022 US LE Venous Duplex Left Exam Date/Time: 09/29/2023 17:53 EST Reason for Exam: Cellulitis Report IMPRESSION: NO LEFT LOWER EXTREMITY DVT IDENTIFIED. EXAM: US LE Venous Duplex Left DATE: 09/29/2023 5:52 PM CLINICAL HISTORY: Cellulitis. COMPARISON: None available. TECHNIQUE: Grayscale, compression, color and waveform Doppler analysis of the left lower extremity venous systems was performed with augmentation. Spectral Doppler waveforms were evaluated for spontaneity, phasicity and appropriate augmentation. FINDINGS: There is no deep or superficial venous thrombosis, abnormal masses, organized fluid collections, or other findings of concern identified within the left lower extremity. No DVT present within the visualized right common femoral vein. Ordering Provider: Alondra Camarena FINAL REPORT Dictated: 09/29/2023 6:14 pm Randy Stubbs MD Signed (Electronic Signature): 09/29/2023 6:14 pm Signed by: Randy Stubbs MD Transcribed by: KORINA Technologist: CAITLIN Bautista [facility] Vit B12on 09-29-2023 Cobalamin (Vitamin B12) [Mass/Vol] 942 pg/mL Normal 50-1500 [facility] Comment on above: Performed By: #### 2 389399, 87069786, 4823422, 53259587, 725334615, 5458967, 90537260 #### [facility] [address] [place] [address] eGFRon 09-29-2023 GFR/1.73 sq M.predicted among non-blacks MDRD (S/P/Bld) [Vol rate/Area] 38 mL/min/1.73 m2 Low >=59 [facility] Comment on above: Order Comment: Order added by Discern Expert. Result Comment: [employer] amado kidney disease could be indicated at eGFR's of less than 60 mL/min/1.73m2. Kidney failure is indicated at less than 15 mL/min/1.73m2. Performed By: #### 2 743373, 59369332, 1541332, 71149771, 123144961, 3684029, 36417651 #### [facility] [address] [place] [address] Vital Signs Date Time Vital Sign Value Performing Clinician Facility 12-04-2023 12:23-0500 Blood Pressure Location [facility] 12-04-2023 12:23-0500 Diastolic blood pressure 76 mm[Hg] [facility] Yung[facility] 12-04-2023 12:23-0500 Heart rate 80 /min [facility] 12-04-2023 12:23-0500 Respiratory rate 18 /min King Sarmini [facility] 12-04-2023 12:23-0500 Systolic blood pressure 124 mm[Hg] King Sarmini [facility] 11-04-2023 10:04-0500 Blood Pressure Location [facility] 11-04-2023 10:04-0500 Body temperature 97.52 [degF] [facility] 11-04-2023 10:04-0500 Diastolic blood pressure 79 mm[Hg] [facility] 11-04-2023 10:04-0500 Heart rate 74 /min [facility] 11-04-2023 10:04-0500 Mean blood pressure 96 mm[Hg] [facility] 11-04-2023 10:04-0500 Respiratory rate 18 /min [facility] 11-04-2023 10:04-0500 SaO2% (BldA) [Mass fraction] 96 % [facility] 11-04-2023 10:04-0500 Systolic blood pressure 130 mm[Hg] [facility] 11-04-2023 10:02-0500 Heart rate 89 /min [facility] 11-04-2023 10:02-0500 SaO2% (BldA) [Mass fraction] 95 % [facility] 11-04-2023 10:01-0500 Body temperature 97.52 [degF] [facility] 11-04-2023 10:00-0500 Diastolic blood pressure 79 mm[Hg] [facility] 11-04-2023 10:00-0500 Mean blood pressure 96 mm[Hg] [facility] 11-04-2023 10:00-0500 Systolic blood pressure 130 mm[Hg] [facility] 10-21-2023 15:00-0500 Blood Pressure Location [facility] 10-21-2023 15:00-0500 Body temperature 99.32 [degF] [facility] 10-21-2023 15:00-0500 Diastolic blood pressure 68 mm[Hg] [facility] 10-21-2023 15:00-0500 Heart rate 82 /min [facility] 10-21-2023 15:00-0500 SaO2% (BldA) [Mass fraction] 94 % [facility] 10-21-2023 15:00-0500 Systolic blood pressure 109 mm[Hg] [facility] 10-21-2023 14:00-0500 Diastolic blood pressure 72 mm[Hg] [facility] 10-21-2023 14:00-0500 Heart rate 80 /min [facility] 10-21-2023 14:00-0500 Mean blood pressure 89 mm[Hg] [facility] 10-21-2023 14:00-0500 Systolic blood pressure 124 mm[Hg] [facility] 10-20-2023 14:28-0500 Heart rate 76 /min [facility] 10-20-2023 14:28-0500 SaO2% (BldA) [Mass fraction] 97 % [facility] 10-20-2023 14:28-0500 Body temperature 97.7 [degF] [facility] 10-20-2023 14:28-0500 Diastolic blood pressure 74 mm[Hg] d [facility] 10-20-2023 14:28-0500 Mean blood pressure 99 mm[Hg] [facility] 10-20-2023 14:28-0500 Systolic blood pressure 150 mm[Hg] d [facility] 10-20-2023 14:27-0500 Respiratory rate 14 /min [facility] 10-03-2023 21:44-0500 Hourly Rounding [facility] 10-03-2023 21:44-0500 Promise to Return [facility] 10-03-2023 20:33-0500 Hourly Rounding [facility] 10-03-2023 20:33-0500 Promise to Return [facility] 10-03-2023 20:02-0500 Heart rate 92 /min [facility] 10-03-2023 20:02-0500 SaO2% (BldA) [Mass fraction] 91 % [facility] 10-03-2023 20:01-0500 Diastolic blood pressure 64 mm[Hg] [facility] 10-03-2023 20:01-0500 Mean blood pressure 92 mm[Hg] [facility] 10-03-2023 20:01-0500 Systolic blood pressure 149 mm[Hg] [facility] 10-03-2023 19:30-0500 Hourly Rounding [facility] 10-03-2023 19:30-0500 Promise to Return [facility] 10-03-2023 17:17-0500 SaO2% (BldA) [Mass fraction] 92 % [facility] 10-03-2023 16:47-0500 Heart rate 87 /min [facility] 10-03-2023 16:47-0500 SaO2% (BldA) [Mass fraction] 91 % [facility] 10-03-2023 16:46-0500 Body temperature 98.24 [degF] [facility] 10-03-2023 16:46-0500 Diastolic blood pressure 71 mm[Hg] [facility] 10-03-2023 16:46-0500 Mean blood pressure 98 mm[Hg] [facility] 10-03-2023 16:46-0500 Systolic blood pressure 151 mm[Hg] [facility] 10-03-2023 11:54-0500 Heart rate 90 /min [facility] 10-03-2023 11:54-0500 Diastolic blood pressure 76 mm[Hg] [facility] 11:54-0500 Mean blood pressure 101 mm[facility]Hg[facility] 11:54-0500 Systolic blood pressure 153 mm[Hg] [facility] 10-03-2023 11:53-0500 Body temperature 97.34 [degF] [facility] 10-03-2023 08:00-0500 Body temperature 98.42 [degF] [facility] 10-03-2023 01:36-0500 Body temperature 98.6 [degF] [facility] 10-03-2023 01:36-0500 Mean blood pressure 105 mm[Hg] [facility] 01:36-0500 Respiratory rate 16 /min [facility] 10-03-2023 00:47-0500 Body temperature 98.78 [degF] [facility] 10-03-2023 00:47-0500 Mean blood pressure 112 mm[Hg] [facility] 10-03-2023 00:47-0500 Respiratory rate 18 /min [facility] 10-02-2023 20:55-0500 Body temperature 98.6 [degF] [facility] 10-02-2023 20:00-0500 Blood Pressure Location [facility] 10-02-2023 00:35-0500 Respiratory rate 18 /min [facility] 10-01-2023 19:26-0500 Blood Pressure Location [facility] 10-01-2023 19:26-0500 Mean blood pressure 97 mm[Hg] [facility] 10-01-2023 13:22-0500 Heart rate 76 /min [facility] 09-30-2023 17:49-0500 Body temperature 98.42 [degF] [facility] 09-30-2023 17:49-0500 Respiratory rate 13 /min [facility] 09-30-2023 17:35-0500 Respiratory rate 14 /min [facility] 09-30-2023 17:30-0500 Respiratory rate 14 /min [facility] 09-30-2023 17:20-0500 Body temperature 97.16 [degF] [facility] 09-29-2023 21:53-0500 Heart rate 86 /min [facility] 09-29-2023 16:28-0500 Heart rate 76 /min [facility] Encounters Encounter Date Encounter Type Care Provider Facility Start: 02-24-2024 End: 02-24-2024 ambulatory Carmen Brodie Facility:[facility] Start: 02-24-2024 End: 02-24-2024 ambulatory PHYSICIAN NO [facility] Work Phone: Start: 02-24-2024 End: 02-24-2024 Departed Referred PHYSICIAN [facility] Start: 12-15-2023 End: 12-16-2023 Pre-admission assessment [facility]hd Y[facility]du [facility] Start: 12-04-2023 ambulatory [facility] Start: 12-04-2023 End: 12-05-2023 ambulatory King Talal Sarmini [facility] Start: 12-04-2023 End: 02-17-2024 Pre-admission assessment King Talal Sarmini [facility] Start: 12-04-2023 End: 12-04-2023 Patient encounter procedure Fernando Bucio [facility] Start: 11-04-2023 End: 11-05-2023 ambulatory Mhd Yaser Al-Marrawi Facility:[facility] Start: 11-04-2023 End: 11-04-2023 Patient encounter procedure Mhd Yaser [facility] Start: 11-01-2023 End: 11-02-2023 ambulatory Mhd Yaser Al-Marrawi Facility:[facility] Start: 11-01-2023 End: 11-01-2023 Patient encounter procedure Mhd Yaser Al[facility] Start: 10-28-2023 End: 10-29-2023 ambulatory Mhd Yaser Al-Marrawi Facility:[facility] Start: 10-22-2023 End: 10-22-2023 ambulatory VINOD QUINTEROS Not Available Start: 10-21-2023 End: 10-22-2023 ambulatory Mhd Yaser Al-Marrawi Facility:[facility] Start: 10-21-2023 End: 10-21-2023 Patient encounter procedure Mhd Yaser Al-Marraw[facility] Start: 10-20-2023 End: 10-21-2023 ambulatory Mhd Yaser Al-Marrawi Facility:[facility] Start: 10-20-2023 End: 10-20-2023 Patient encounter procedure Mhd Yaser Al-Marrawi [facility] Start: 10-17-2023 End: 10-18-2023 ambulatory Mhd Yaser Al-Marrawi Facility:[facility] Start: 10-09-2023 Patient encounter procedure Chapo Oshea APRN.DIRECTOR NURSES' REGISTRY Work Phone: [facility] Start: 10-09-2023 Progress Note Chapo MOYER RN.DIRECTOR NURSES' REGISTRY Work Phone: [facility] Department Start: 10-08-2023 End: 10-08-2023 ambulatory VINOD D DOLCE Not Available Start: 10-06-2023 Patient encounter procedure Kandy Greenwood Work Phone: [employer] [facility] [facility] Start: 10-06-2023 Progress Note Itri Dede Timo Work Phone: [place] [employer] Start: 09-29-2023 End: 10-04-2023 Evaluation and management of inpatient Ryan Tenorio Facility:[facility] Start: 09-29-2023 End: 09-29-2023 ambulatory VINOD D DOLCE Not Available Start: 09-29-2023 End: 10-03-2023 Evaluation and management of inpatient Sonya Dee [facility] Immunizations Immunization Date Immunization Notes Care Provider Fa cility NEGATED: Highlighted row has not occurred!12-03-2023 influenza virus vaccine, unspecified formulation Fernando Bucio [facility] Payers Date Payer Category Payer Self-pay 2023 Medicare [id number] 2010 Medicare [id number] 2008 Medicare MEDICARE MEDICAR E A AND B [id number] 2008-Present [phone] [place] [address] Medicare [id number] 1942 Unknown [id number] 9 1942 Unknown [id number] 9 1942 Unknown [id number] 9 1942 Unknown [id number] 1942 Unknown [id number] 1942 Unknown [id number] 1942 Unknown [id number] 1942 Unknown [id number] 1942 Unknown [id number] 1942 Unknown [id number] 1942 Unknown [id number] Social History Date Type Detail Facility Start: 09-29-2023 End: 12-04-2023 Tobacco smoking status Ex-smoker (finding) [facility] Sex Assigned At Male [facility] Tobacco smoking status [facility] Tobacco smoking consumption unknown [facility] Start: 1940 Sex Assigned At Not on file C [facility] Tobacco smoking status Never [facility] Start: 1940 Sex Assigned At Male F [facility] Functional Status Date Assessment Result Facility 12-04-2023 Functional Status N/A [facility] 09-29-2023 Functional Status N/A [facility] 09-29-2023 Functional Status [facility] Clinical Notes 09-30-2023 to 11-18-2023 Chapo Champion APRN.DIRECTOR NURSES' REGISTRY - 10/09/2023 12:00 AM Kandy Rios A - 10/06/2023 12:00 AM EST Note Date & Type Note Facility 11-18-2023 Evaluation + Plan note Future Scheduled TestsCBC w/ Auto Diff 11/18/23CBC w/ Auto Diff 12/02/23CBC w/ Auto Diff 12/16/23Comprehensive Metabolic Panel 11/18/23Comprehensive Metabolic Panel 12/02/23Comprehensive Metabolic Panel 12/16/23Ferritin 12/15/23Iron Level 12/15/23Iron Percent Saturation 12/15/23Transferrin 12/15/23 [facility] 10-22-2023 Note HNO ID: [id number] Author: Chapo Oshea APRN.DIRECTOR NURSES' REGISTRY Service: ? Author Type: Nurse Specialist Type: Progress Notes Filed: 10/28/2023 8:19 AM Note Text: [facility] NOTE NAME: NATTY GRIMALDO NO.: [id number] DATE OF SERVICE: 10/22/2023 [facility] DATE OF : 1940 REASON FOR VISIT: The patient is a resident of [facility]. This is a skilled visit for cellulitis to the left foot and other medical concerns. Upon entering the room I found the patient up, walking in the room. The patient does not appear to be in distress or discomfort and is calm and pleasant in conversation. The patient states is to see Dr. Quinteros today for evaluation. The patient states he has no complaints at this time. No pain, no cough, no shortness of breath. No fever, chills, or nausea. States he is eating well and bowels have been moving. States has been drinking fluids. Denies urinary symptoms. The patient states did have some nasal congestion and sinus pain, but that has eased as well. MEDICATIONS: Have been reviewed. PHYSICAL EXAMINATION: Temp 98.1, blood pressure 117/66, pulse 78, respirations 17, pulse ox 94% on room air, weight 126 pounds. Respiratory: Respirations are easy and unlabored with patient at rest. Lung sounds are clear. Heart: Heart rate and rhythm regular. Abdomen: Soft and nontender with palpation. Bowel sounds present x4. Extremities: Right lower extremity nonedematous. Left lower extremity, fracture boot is intact. IMPRESSION AND PLAN: 1. Cellulitis. The patient will continue to follow with podiatry services. Wound treatment per wound directive. 2. Leukocytosis. White blood cell count trending downward, last taken 17.7. 3. Thrombocytosis. The patient was started on hydroxyurea, following with hematology. 4. Anemia with iron deficiency, on iron tab. 5. Hypertension. The patient has good blood pressure control, on nifedipine. 6. Chronic kidney disease with hyperkalemia. The patient was given Kayexalate. Potassium last taken 5.3. The patient is on low potassium diet. Continue to encourage fluids. 7. Generalized weakness. Continue therapy services as needed. DICTATED BY: YINA Carlisle JOB# [id number] cc: [facility] 10-14-2023 Note HNO ID: [id number] Author: Chapo Oshea APRN.DIRECTOR NURSES' REGISTRY Service: ? Author Type: Nurse Specialist Type: Progress Notes Filed: 10/16/2023 7:48 AM Note Text: [facility] NOTE NAME: NATTY GRIMALDO NO.: [id number] DATE OF SERVICE: 10/14/2023 [facility] DATE OF : 1940 REASON FOR VISIT: The patient is resident of [facility]. This is a skilled visit for cellulitis and other medical concerns. Upon entering room, found the patient calm, alert, lying in bed, watching television. The patient does not appear to be in distress or discomfort. The patient states feels well today. The patient states does have some sinus congestion, but overall feels well. States he does not have pain to the left foot. No fever, chills, or nausea. No cough, shortness of breath. States has been eating well, bowels have been moving. States has been drinking fluids. Denies urinary symptoms. MEDICATIONS: Medications have been reviewed. PHYSICAL EXAMINATION: Temp 97.8, blood pressure 148/67, pulse 78, respirations 20, pulse ox 94% on room air. Weight 129 pounds. Respiratory: Respirations are easy and unlabored with the patient at rest. Lung sounds clear. Heart: Heart rate and rhythm are regular. Abdomen: Soft, nontender with palpation. Bowel sounds present x4. Extremities: Non-edematous. Skin: Left anterior foot wound dressing has scant amount of serosanguineous drainage. There is noted mild redness, swelling. No purulent drainage. No foul odors identified. IMPRESSION AND PLAN: 1. Cellulitis to the left foot. The patient continues with Augmentin. The patient will continue following with Podiatry services. 2. Thrombocytosis. The patient does have a lab work pending today. 3. Leukocytosis. Again, the patient has lab work pending today. The patient is asymptomatic at this time. 4. Iron-deficiency anemia. On iron tab. 5. Hypertension. The patient has good blood pressure control. On antihypertensives. 6. Chronic kidney disease. Again, the patient has labs pending today. 7. Generalized weakness. The patient is working with therapy services. DICTATED BY: YINA Carlisle JOB# [id number] cc:DR [facility] 10-13-2023 Note Admission and Discha rge Information Admit Date/Time:09/29/2023 19:18 Admitting Physician - Leila ANAYA, Sonya Consulting Physician - Coby BATISTA, Ryan Cervantes MD, Manav Thomson M.D, Bernard Quinteros DPM, Vinod Arnold MD, Abhishek Admitting Diagnoses: Discharge Diagnoses 1. Abscess of left foot excluding toes, 09/29/2023 2. Thrombocytosis, 09/29/2023 3. JOSELINE (acute kidney injury), 09/29/2023 4. Elevated blood pressure reading, 09/29/2023 Iron deficiency, 09/30/2023 Wound infection - complicated, 09/29/2023 Hospital Course This is an 82-year-old male with multiple comorbidities who was admitted of abscess of left foot, thrombocytosis, JOSELINE, hypertension. Was found to have iron deficiency anemia was given IV iron this along with antibiotics helped resolved his thrombocytosis. He will follow-up outpatient with oncology. Seen by podiatry and underwent incision and drainage. Wound cultures came back negative. Peripherally discussed the case with ID. Will send him on Augmentin 1 tab twice daily for 2 weeks. Regards to elevated blood pressures he was started on nifedipine and chlorthalidone. Was obtained showed good EF and good diastolic function no elevated pulmonary pressures. On day of discharge she was vitally hemodynamically and clinically stable. He was seen by PT who rec SNF. He was d/c to SNF. - New Medications/Medication Adjustments -Augmentin 1 tab BID x 2 weeks -Procardia 60mg once daily -Chlorthalidone 25mg once daily -Iron def anemia - On day of discharge patient was vitally, hemodynamically clinically stable. Patient verbalized understanding and agreement with above. Discussed medication changes with patient. A good jeannine effort was made to discuss the above with the patient. Teach back method was used when discussing plan and need for referrals with patients. - Follow Up Patient is to follow up with Heme Patient is to follow up with Podiatry Patient is to follow up with Nephrology for CKD Patient is to follow up with GI for CHENG Patient is to follow up with PCP for transition of care - Discharge Instructions: Given Discharge Medications: Reviewed Discharge Status: Improved Discharge disposition: stable - Prescriptions reviewed with Patient - 32 minutes time spent in discharge timing. Services Consulted - Completed -- 09/29/23 23:09:14 EST Consult to Hematology/Oncology (Hematology/Oncology Consult) - Ordered -- 09/29/23 19:44:00 EST, Severe thrombocytosis, Need input regarding surgery scheduled for 09/30, [facility] at [facility] Consult to Infectious Disease Physician - Ordered -- 09/30/23 13:24:00 EST, ivabx, Consult and Co-manage Consult to Nephrology - Ordered -- 09/30/23 11:02:00 EST, JOSELINE? CKD, Consult and Co-manage Consult to Medical Administrative Technician - Ordered -- 09/29/23 19:45:00 EST, Left foot abscess, Dr Quinteros aware, Consult and Co-manage Certified [employer] Physical Educator Consult - Completed -- 10/01/23 10:11:00 EST, Pt keeps making references to not having running water and home having only room heaters. Pt may need HH for LT IV atx., Other Physical Exam Vitals & Measurements T: 36.3 ?C(Axillary) TMIN: 36.3 ?C(Axillary) TMAX: 37.1 ?C(Oral) HR: 90(Monitored) RR: 16 BP: 153/76 SpO2: 92% General: alert, no acute distress Psychiatric: cooperative, affect appropriate for age Neurological: awake, alert, oriented, speech normal Cardiovascular: no overt murmurs Respiratory: no adventitious breath sounds Gastrointestinal: soft NT, NG, NR Extremities: foot in bandage, c /d/i Laboratory Results .Manual Abs (10/01/2023) Segs Abs Man - 24.1 E9/L Lymph Abs Man - 0.3 E9/L Knox Abs Man - 1.3 E9/L Eos Abs Man - 0.0 E9/L Basophil Abs Man - 0.5 E9/L Automated Diff (10/03/2023) Neutro Auto - 80.8 % Lymph Auto - 3.0 % Knox Auto - 13.4 % Eos Auto - 1.1 % Basophil Auto - 1.7 % Neutro Absolute - 17.8 E9/L Lymph Absolute - 0.7 E9/L Knox Absolute - 2.9 E9/L Eos Absolute - 0.2 E9/L Basophil Absolute - 0.4 E9/L B-Type Natriuretic Peptide (10/03/2023) BNP - 186 pg/mL BMP (10/03/2023) Glucose Lvl - 88 mg/dL BUN - 26 mg/dL Creatinine - 1.3 mg/dL BUN/Creat Ratio - 20 Sodium Lvl - 140 mmol/L Potassium Lvl - 3.8 mmol/L Chloride - 111 mmol/L CO2 - 23 mmol/L AGAP - 10 mEq/L Calcium Lvl - 8.6 mg/dL C-Reactive Protein (09/29/2023) CRP - 1.1 mg/dL CBC w/ Auto Diff (10/03/2023) WBC - 22.0 E9/L RBC - 6.4 E12/L Hgb - 12.5 gm/dL Hct - 40.9 % MCV - 63.6 fL MCH - 19.4 pg MCHC - 30.5 gm/dL RDW - 21.3 % Platelet - 172.0 E9/L MPV - 7.8 fL CMP (09/29/2023) Glucose Lvl - 96 mg/dL BUN - 31 mg/dL Creatinine - 1.8 mg/dL BUN/Creat Ratio - 17 Sodium Lvl - 139 mmol/L Potassium Lvl - 3.8 mmol/L Chloride - 109 mmol/L CO2 - 25 mmol/L AGAP - 9 mEq/L Calcium Lvl - 8.9 mg/dL Alk Phos - 67 Int._Unit/L ALT - 16 Int._Unit/L AST - 23 Int._Unit/L Total Protein - 6.6 gm/dL Albumin Lvl - 3.5 gm/dL Globulin - 3.1 gm/dL A/G Ratio - 1 (more content not included)... [facility] Comment on above: Result Comment: Elec tronically Signed By: Keyon ANAYA, Raiza\.br\Date and Time Signed: 10/13/23 10:31 EST 10-09-2023 Note HNO ID: [id number] Author: Chapo Oshea APRN.DIRECTOR NURSES' REGISTRY Service: ? Author Type: Nurse Specialist Type: Progress Notes Filed: 10/14/2023 7:39 AM Note Text: [facility] NOTE NAME: NATTY GRIMALDO NO.: [id number] DATE OF SERVICE: 10/09/2023 [facility] DATE OF : 1940 REASON FOR VISIT: The patient is a resident of [facility]. This is a skilled visit for cellulitis left foot and other medical concerns. Upon entering the room, I found the patient calm, alert, sitting in side of his bed, taking afternoon meal. The patient does not appear to be in distress or discomfort. The patient states overall feels good. The patient states has no pain. The patient states did develop a cough in the hospital, but nothing bothersome. The cough is productive of a white expectorant on occasion. The patient states no shortness of breath. The patient states no fever, chills. The patient states no nausea. States his appetite is good and bowels have been moving. States has been drinking fluids, states he does have some frequency with urination, but no other complaints. MEDICATIONS: Have been reviewed. PHYSICAL EXAMINATION: Temp 98.2, blood pressure 128/78, pulse 80, respirations 18, pulse ox 96% on room air. Respiratory: Respirations are easy and unlabored with patient at rest. Lung sounds are clear, slightly diminished in bilateral lower lobes. Heart: Heart rate and rhythm regular. Abdomen: Soft and nontender with palpation. Bowel sounds present x4. Extremities: Nonedematous. Left foot fracture boot is removed and dressing is removed. There is what appears to be a brown like stain on the dressing, it is consistent with Betadine. The anterior aspect of the right foot does have redness and mild erythema, slight swelling. No foul odors, no purulent drainage is identified. LAB DATA: Labs reviewed, October 08, 2023, basic metabolic panel abnormals glucose 40, potassium 5.4, carbon dioxide 26, BUN 26, creatinine 1.5, GFR 45. All other labs within normal range. CBC with diff abnormals white blood cells 22.6, RBC 6.79, hemoglobin 13.6, MCV 67.1, MCH 28.0, MCHC 29.8, RDW 22.9, anisocytosis 2+, hypochromasia 2+, microcytosis 2+, neutrophils 82.2, lymphocytes 4.0, neutrophil absolute 18.6, monocyte absolute 2.0. All other labs within normal range. IMPRESSION AND PLAN: 1. Cellulitis, left foot. The patient was seen by Dr. Quinteros's services yesterday. Dressings and treatments per wound directive. The patient is on Augmentin, end date October 20, 2023 and on acidophilus. 2. Thrombocytosis, platelets 677. We will continue to monitor. 3. Leukocytosis. White blood cells 22.6, on Augmentin. White blood cells 24.4 in hospital, down slightly from in hospital. 4. Iron deficiency anemia, on iron tablets and multivitamins. The patient did have iron infusion in the hospital, hemoglobin 13.6. 5. Hypertension. The patient has fair blood pressure control. Currently on chlorthalidone, nifedipine. 6. Chronic kidney disease. GFR 45. We encouraged fluids. Repeat labs October 10, 2023. 7. Generalized weakness, continue therapy services. DICTATED BY: YINA Carlisle JOB# [id number] cc:DR Reynaldo Galeano [facility] 10-09-2023 History of Present illness Narrative [facility] NOTE NAME: NATTY GRIMALDO NO.: [id number] DATE OF SERVICE: 10/09/2023 [facility] DATE OF : 1940 REASON FOR VISIT: The patient is a resident of [facility]. This is a skilled visit for cellulitis left foot and other medical concerns. Upon entering the room, I found the patient calm, alert, sitting in side of his bed, taking afternoon meal. The patient does not appear to be in distress or discomfort. The patient states overall feels good. The patient states has no pain. The patient states did develop a cough in the hospital, but nothing bothersome. The cough is productive of a white expectorant on occasion. The patient states no shortness of breath. The patient states no fever, chills. The patient states no nausea. States his appetite is good and bowels have been moving. States has been drinking fluids, states he does have some frequency with urination, but no other complaints. MEDICATIONS: Have been reviewed. PHYSICAL EXAMINATION: Temp 98.2, blood pressure 128/78, pulse 80, respirations 18, pulse ox 96% on room air. Respiratory: Respirations are easy and unlabored with patient at rest. Lung sounds are clear, slightly diminished in bilateral lower lobes. Heart: Heart rate and rhythm regular. Abdomen: Soft and nontender with palpation. Bowel sounds present x4. Extremities: Nonedematous. Left foot fracture boot is removed and dressing is removed. There is what appears to be a brown like stain on the dressing, it is consistent with Betadine. The anterior aspect of the right foot does have redness and mild erythema, slight swelling. No foul odors, no purulent drainage is identified. LAB DATA: Labs reviewed, October 08, 2023, basic metabolic panel abnormals glucose 40, potassium 5.4, carbon dioxide 26, BUN 26, creatinine 1.5, GFR 45. All other labs within normal range. CBC with diff abnormals white blood cells 22.6, RBC 6.79, hemoglobin 13.6, MCV 67.1, MCH 28.0, MCHC 29.8, RDW 22.9, anisocytosis 2+, hypochromasia 2+, microcytosis 2+, neutrophils 82.2, lymphocytes 4.0, neutrophil absolute 18.6, monocyte absolute 2.0. All other labs within normal range. IMPRESSION AND PLAN: 1. Cellulitis, left foot. The patient was seen by Dr. Quinteros's services yesterday. Dressings and treatments per wound directive. The patient is on Augmentin, end date October 20, 2023 and on acidophilus. 2. Thrombocytosis, platelets 677. We will continue to monitor. 3. Leukocytosis. White blood cells 22.6, on Augmentin. White blood cells 24.4 in hospital, down slightly from in hospital. 4. Iron deficiency anemia, on iron tablets and multivitamins. The patient did have iron infusion in the hospital, hemoglobin 13.6. 5. Hypertension. The patient has fair blood pressure control. Currently on chlorthalidone, nifedipine. 6. Chronic kidney disease. GFR 45. We encouraged fluids. Repeat labs October 10, 2023. 7. Generalized weakness, continue therapy services. DICTATED BY: YINA Carlisle/Oscar JOB# [id number] cc:DR [facility] documented in this encounter [facility] 10-06-2023 Note Microbiology PROCEDURE: Blood Culture Charcoal [R1] SOURCE: Blood BODY SITE: Arm L COLLECTED DATE/TIME: 09/29/2023 17:13 EST RECEIVED DATE/TIME: 09/29/2023 17:51 EST START DATE/TIME: 09/29/2023 17:51 EST FREE TEXT SOURCE: Alondra Camarena PA-C. Nicol JACOBSON, Alondra Arenas FINAL REPORTS Final Report [] Verified Date/Time: 10/06/2023 18:00 EST No growth at 7 days. Performing Locations R1: This test was performed at: [facility], [address] [place] [address], [id number] [place] [address], [facility] Comment on above: Performed By: #### [id number] #### [facility] [address] [place] [id number] 10-06-2023 Note Microbiology PROCEDURE: Blood Culture Charcoal [R1] SOURCE: Blood BODY SITE: Arm R COLLECTED DATE/TIME: 09/29/2023 17:11 EST RECEIVED DATE/TIME: 09/29/2023 17:52 EST START DATE/TIME: 09/29/2023 17:52 EST FREE TEXT SOURCE: IV start Alondra Camarena PA-C, PA-C, Jenna E. FINAL REPORTS Final Report [] Verified Date/Time: 10/06/2023 18:00 EST No growth at 7 days. Performing Locations R1: This test was performed at: [facility], [address] [place] [address], [id number], [facility] Comment on above: Performed By: #### [id number] #### [facility] [address] [place] [id number] 10-06-2023 Note HNO ID: [id number] Author: Kandy Greenwood Service: ? Author Type: Physician Type: Progress Notes Filed: 10/07/2023 5:39 PM Note Text: [facility] NOTE NAME: NATTY GRIMALDO NO.: [id number] DATE OF SERVICE: 10/06/2023 [facility] DATE OF : 1940 New Patient History and Physical HISTORY OF PRESENT ILLNESS: The patient is an 82-year-old male who was admitted to us from [facility] with the diagnosis of status post incision and drainage of left foot abscess, acute kidney injury, thrombocytosis, iron deficiency anemia, new diagnoses of hypertension, remote smoking history, and generalized weakness. He initially presented to the hospital due to a nonhealing wound involving his left foot. Evaluation in the hospital did reveal findings consistent with abscess for which he did undergo incision and drainage by the Podiatry Service. Laboratory testing also revealed thrombocytosis and heart deficiency anemia, for which he was given iron infusion. Wound cultures did come back negative. He did receive a course of IV antibiotics, which was transitioned to oral antibiotics at the time of discharge. He was also found to have possible acute kidney injury versus chronic kidney disease. He was also found to be hypertensive. He was started on blood pressure medications. His condition was stabilized and improved and he is now admitted to our facility for continued therapy prior to returning back to his home where he lives by himself. REVIEW OF SYSTEMS: He is currently resting in bed. He is alert and responsive. He claims have been in quite good health prior to his recent hospitalization. He was on no home prescription medications. He has had no change in his vision or hearing or actual syncope. He denies being short of breath at this time. No history of COPD, asthma, bronchitis or recent pneumonia. He stopped smoking over 45 years ago. He denies any cardiac history. No chest pain, angina, palpitations, previous heart attacks, heart surgeries or pacemakers. Once again, he was diagnosed of hypertension during this last hospitalization. No bleeding ulcers, hepatitis, or melena. His appetite has been fair. He denies any nausea or vomiting. No prior strokes or seizures, diabetes mellitus, bleeding problems or blood clots. FAMILY HISTORY: Significant for hypertension. SOCIAL/FUNCTIONAL HISTORY: He once again stopped smoking over 45 years ago. No history of alcohol abuse. 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 MEDICATIONS: Augmentin 875 mg b.i.d. for 14 days, aspirin 81 mg daily, chlorthalidone 25 mg daily, iron tablets 325 mg every other day, multivitamin daily, and nifedipine ER 60 mg daily. ALLERGIES: No known drug allergies. EXAMINATION: Afebrile, vital signs are stable. He is in no distress. HEENT: Extraocular movements are intact, sclerae nonicteric. Ears are intact. Lungs: Clear. Heart: Regular. Abdomen: Soft, nontender. Extremities: No edema. His left foot is heavily bandaged. Toes are pink and warm. IMPRESSION: 1. Status post incision and drainage of left foot abscess - patient will continue to receive daily wound care. The patient will also complete current course of oral antibiotics. He will follow up with Podiatry Service as an outpatient. 2. Thrombocytosis with iron deficiency anemia - he did receive iron infusion while in the hospital. Maintain current oral iron supplement. We will obtain follow up CBC, monitor his blood counts closely. 3. Newly diagnosed hypertension - maintain current anti-hypertensive regimen, monitor blood pressures closely and make adjustments as needed. 4. Possible acute kidney injury versus chronic kidney disease - he did receive intravenous fluids while in the hospital. He is to follow up with Nephrology as an outpatient basis. 5. Functional assessment - he does have generalized weakness. He will be receiving rehabilitation services for overall strengthening and conditioning. Overall condition and prognosis is quite guarded. We will obtain follow up laboratories including CBC and BMP. He will be returning home upon completion of his therapy. DICTATED BY: MD BLAYNE Osborn/Oscar JOB# [id number] cc:DR Reynaldo Galeano [facility] 10-06-2023 History of Present illness Narrative [facility] NOTE NAME: NATTY GRIMALDO NO.: [id number] DATE OF SERVICE: 10/06/2023 [facility] DATE OF : 1940 New Patient History and Physical HISTORY OF PRESENT ILLNESS: The patient is an 82-year-old male who was admitted to us from [facility] with the diagnosis of status post incision and drainage of left foot abscess, acute kidney injury, thrombocytosis, iron deficiency anemia, new diagnoses of hypertension, remote smoking history, and generalized weakness. He initially presented to the hospital due to a nonhealing wound involving his left foot. Evaluation in the hospital did reveal findings consistent with abscess for which he did undergo incision and drainage by the Podiatry Service. Laboratory testing also revealed thrombocytosis and heart deficiency anemia, for which he was given iron infusion. Wound cultures did come back negative. He did receive a course of IV antibiotics, which was transitioned to oral antibiotics at the time of discharge. He was also found to have possible acute kidney injury versus chronic kidney disease. He was also found to be hypertensive. He was started on blood pressure medications. His condition was stabilized and improved and he is now admitted to our facility for continued therapy prior to returning back to his home where he lives by himself. REVIEW OF SYSTEMS: He is currently resting in bed. He is alert and responsive. He claims have been in quite good health prior to his recent hospitalization. He was on no home prescription medications. He has had no change in his vision or hearing or actual syncope. He denies being short of breath at this time. No history of COPD, asthma, bronchitis or recent pneumonia. He stopped smoking over 45 years ago. He denies any cardiac history. No chest pain, angina, palpitations, previous heart attacks, heart surgeries or pacemakers. Once again, he was diagnosed of hypertension during this last hospitalization. No bleeding ulcers, hepatitis, or melena. His appetite has been fair. He denies any nausea or vomiting. No prior strokes or seizures, diabetes mellitus, bleeding problems or blood clots. FAMILY HISTORY: Significant for hypertension. SOCIAL/FUNCTIONAL HISTORY: He once again stopped smoking over 45 years ago. No history of alcohol abuse. 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 MEDICATIONS: Augmentin 875 mg b.i.d. for 14 days, aspirin 81 mg daily, chlorthalidone 25 mg daily, iron tablets 325 mg every other day, multivitamin daily, and nifedipine ER 60 mg daily. ALLERGIES: No known drug allergies. EXAMINATION: Afebrile, vital signs are stable. He is in no distress. HEENT: Extraocular movements are intact, sclerae nonicteric. Ears are intact. Lungs: Clear. Heart: Regular. Abdomen: Soft, nontender. Extremities: No edema. His left foot is heavily bandaged. Toes are pink and warm. IMPRESSION: 1. Status post incision and drainage of left foot abscess - patient will continue to receive daily wound care. The patient will also complete current course of oral antibiotics. He will follow up with Podiatry Service as an outpatient. 2. Thrombocytosis with iron deficiency anemia - he did receive iron infusion while in the hospital. Maintain current oral iron supplement. We will obtain follow up CBC, monitor his blood counts closely. 3. Newly diagnosed hypertension - maintain current anti-hypertensive regimen, monitor blood pressures closely and make adjustments as needed. 4. Possible acute kidney injury versus chronic kidney disease - he did receive intravenous fluids while in the hospital. He is to follow up with Nephrology as an outpatient basis. 5. Functional assessment - he does have generalized weakness. He will be receiving rehabilitation services for overall strengthening and conditioning. Overall condition and prognosis is quite guarded. We will obtain follow up laboratories including CBC and BMP. He will be returning home upon completion of his therapy. DICTATED BY: MD BLAYNE Osborn/Oscar JOB# [id number] cc:DR [facility] documented in this encounter [facility] 10-03-2023 Evaluation + Plan note Extrac lenny from: Title:Acute Renal Failure * Author:Hleen ANAYA, Zhang nil Date:10/03/23 Impression and Plan 1. JOSELINE with unknown baseline Cr likely from left foot abscess. This is likely ATN. UA with 1+ protein. Cr peak at 1.8mg/dl on admission and is now improved to 1.3 mg/dL. Ct appears to show Rt kidney cyst. No significant urinary tract calculi or hydronephrosis. -No need for NURSE AUDITOR at this time. May stop NS. Nonoliguric. 2. Thrombocytosis likely from infection: Plt continues to improve; down to 172 from 1273. -Hematology consulted. 3. Lt Foot Abscess: WBC 36.8. Hgb A1C 5.6%. MRI left foot abscess. Underwent I&D on 09/30. -Managed per Dr Quinteros, podiatry. - Currently on vancomycin and cefepime. Last Vanco trough acceptable; goal trough not to exceed 15-20. 4. HTN: BP high on admission. No formal history of HTN. -Blood pressure remains high; currently on nifedipine 60 mg a day and chlorthalidone 25 mg a day. Both of these medications started by the hospitalist. Extracted from: Title:Discharge Note Author:Keyon ANAYA, Raiza Grossman ate:10/03/23 Stable Discharge To, Anticipated II - Retirement Unit Discharged to - Home independently Prescriptions Augmentin 875 mg-125 mg Tab, 1 tab(s), Oral, q12hr chlorthalidone 25 mg Tab, 25 mg= 1 tab(s), Oral, Daily ferrous sulfate 325 mg Tab, 325 mg= 1 tab(s), Oral, Every other day NIFEdipine 60 mg ER Tab, 60 mg= 1 tab(s), Oral, Daily Home aspirin 81 mg Oral EC Tab, 81 mg= 1 tab(s), Oral, Daily multivitamin, 1 tab, Oral, Daily With When Contact Information Luis Snowden [address] [place] [address]- [phone] Business (1) Additional Instructions: Establish care Mhd Lashanda Additional Instructions: Thrombocytosis Fernando Bucio [address], [address] [facility] [address] [place] [address]- [phone] Business (1) Additional Instructions: CHENG Cervantes [facility] - [facility] [address] [place] [address]- Business (1) Additional Instructions: [facility] Additional Instructions: Vinod Quinteros Within 5 to 7 days [facility] [address] [place] [address]- 0 Business (1) Additional Instructions: Flor - Post Operative Instructions (Revised 06/30/14) (Custom) Extracted from: Title:Acute Renal Failure Pr ogress Note Author:Mildred Vasquez CNP Date:10/02/23 Impression and Plan 1. JOSELINE with unknown baseline Cr likely from left foot abscess. This is likely ATN. UA with 1+ protein. Cr stable at 1.8mg/dl since admission. Ct appears to show Rt kidney cyst. No significant urinary tract calculi or hydronephrosis. -No need for NURSE AUDITOR at this time. May reduce NS to 75cc/hr. Nonoliguric. 2. Thrombocytosis likely from infection: Plt continues to improve; down to 587 from 1273. -Hematology consulted. 3. Lt Foot Abscess: WBC 36.8. Hgb A1C 5.6%. MRI left foot abscess. Underwent I&D on 09/30. -Managed per Dr Quinteros, podiatry. - Currently on vancomycin and cefepime. Last Vanco trough acceptable; goal trough not to exceed 15-20. 4. HTN: BP high on admission. No formal history of HTN. -Nifedipine 60 mg daily started yesterday. Extracted from: Title:SOAP Note: podiatry Author:Bella Quinteros DPM Date:10/02/23 Impression and Plan pt will continue to elevate protective weight bear with post op shoe agree with senior living until antibiotics are completed with picc line pending ID recs -pt will be seen post op in office next week. -dressing can be changed before discharge to senior living apply betadine to sutures gauze kerlix and celia with post op shoe Extracted from: Title:Acute Renal Failure * Author:Leatha Cervantes MD Date:10/01/23 Impression and Plan 1. JOSELINE with unknown baseline Cr: Likely from left foot abscess. UA with 1+ protein. Cr stable at 1.8mg/dl since admission. Ct appears to show R kidney cyst. No significant urinary tract calculi or hydronephrosis. -No need for NURSE AUDITOR at this time. May reduce NS to 75cc/hr. Nonoliguric. This is likely ATN 2. Thrombocytosis: Plt 1273 and is now improving. Likely from infection. -Hematology consulted. 3. Lt Foot Abscess: WBC 36.8. Hgb A1C 5.6%. MRI left foot abscess. Underwent I&D on 09/30. On vancomycin and cefepime. -Managed per Dr Quinteros, podiatry. Last Vanco trough acceptable; goal trough not to exceed 15-20. 4. HTN: BP high on admission. No formal history of HTN. May need to start some bp medications depending upon bp trends on lower dose of IVF. Extracted from: Title:Podiatric surgery Author:Vinod Quinteros DPM Date:09/30/23 Impression and Plan Patient will require incision and drainage of the left foot with possible delayed primary closure/wound VAC application. Deep cultures and sensitivities will be taken in the OR. I discussed the procedure with the patient in great detail including risks and possible complications including pain swelling numbness ting infection need for additional surgery recurrence of the condition loss of limb septicemia . Patient fully status post risk and complications will consent for the above-stated procedure. Patient will go to the OR today at 4 PM he is n.p.o. Extracted from: Title:JOSELINE Author:Mildred Vasquez CNP Date:09/30/23 Impression and Plan 1. JOSELINE likely due to chronic NSAID use and infection. Initial creatinine 1.8 mg/dL. He did pass a kidney stone ~[address] abd/pelvis displayed approximately 1.2 cm fluid density cyst inferomedial lower pole right kidney, which does not require further imaging follow-up. Otherwise, unremarkable. Mild nonspecific perinephric inflammation, which is probably chronic. No significant urinary tract calculi or hydronephrosis. -No need for NURSE AUDITOR at this time. -UA and PCR ordered. -Strict I&O's. -Will continue to trend lab results. -Agree w/ IVF as ordered. 2. Thrombocytosis: Plt 1273. -Hematology consulted. 3. Lt Foot Abscess: WBC 36.8. Hgb A1C 5.6%. MRI left foot displayed nonspecific loculated collection over the dorsal aspect of the foot. Differential includes abscess, and hematoma/seroma. Abnormal marrow signal at the first MTP joint with associated advanced degenerative changes at this site. Superimposed osteomyelitis is difficult to exclude. -Managed per Dr Quinteros, podiatry. -He has received Cefepime, Zosyn, and Vanco IVPB. Extracted from: Title:Admission H & P Author:Sonya Dee MD Date:09/29/23 1. Abscess of left foot excl uding toes (L02.612: Cutaneous abscess of left foot) Xray of foot completed in ED. Venous Doppler negative for DVT Continue with Vanco, Zosyn Blood cx pending Check A1C. Patient has not seen a doctor in years. Treat pain. Case d/w Dr Vinod Quinteros. Recommends MRI Foot wo contrast. Plans for OR tomorrow around 1500. 2. Thrombocytosis (D75.839: Thrombocytosis, unspecified) Platelet count severely elevated. Heparin BID for DVTp Consult Hematology. Will need their input regarding surgical risk if possible as well. 3. JOSELINE (acute kidney injury) (N17.9: Acute kidney failure, unspecified) Creatinine 1.8 with prior creatinine in 2019 normal Likely pre-renal in setting of infection NS at 150 cc/hr Repeat BMP in AM 4. Elevated blood pressure reading (R03.0: Elevated blood-pressure reading, without diagnosis of hypertension) No known diagnosis of HTN. Will monitor trend and treat if needed. Extracted from: Title:ED Note Author:Alondra Camarena PA-C Date :09/29/23 1. Abscess of left foot excl uding toes (L02.612: Cutaneous abscess of left foot) 2. Thrombocytosis (D75.839: Thrombocytosis, unspecified) Orders: acetaminophen, 650 mg = 2 tab(s), Tab, Oral, Once, Stop date 09/29/23 19:26:00 EST, STAT, Start date 09/29/23 19:26:00 EST, 09/29/23 19:26:00 EST piperacillin-tazobactam + Sodium Chloride 0.9% intravenous solution 50 mL, 3.375 gm = 1 EA, IV Piggyback, q6hrFT, STAT, Start date 09/29/23 16:55:00 EST, 100 mL/hr, Infuse over 30 minute(s), 09/29/23 16:55:00 EST Sodium Chloride 0.9% intravenous solution 1,000 mL, 1,000 mL, IV, 150 mL/hr, STAT, Start date 09/29/23 18:12:00 EST, 6.7 hour(s), Total volume (mL): 1,000, 62 kg, 1.7, m2 vancomycin + Generic Diluent 250 mL, Reason for Vancomycin: MRSA colonization or infection, 1,250 mg = 250 mL, Soln-IV, IV Piggyback, Once, Stop date 09/29/23 17:00:00 EST, Routine, Start date 09/29/23 17:00:00 EST, Infuse over 90 minute(s) .Manual Abs Blood Culture Charcoal Blood Culture Charcoal C-Reactive Protein CBC w/ Auto Diff Comprehensive Metabolic Panel ED Physician consult Hospitalist for continued care eGFR Extra SST Tube Ferritin Folate Level Iron Level Lactic Acid Magnesium Level Manual Diff Path. Review PT & PTT Saline Lock Insert Sedimentation Rate Automated US LE Venous Duplex Left Vitamin B12 Level XR Foot 3+ Views Left Future Appointments Appointment Date:10/14/2023 03:00:00 PM Scheduled Provider: Location:FT.ONCOLOGY Appointment Type:ONC Office Visit 30 (FT) [facility]12-01-2023 NoteMicrobiology PROCEDURE: Wound Culture [R1] SOURCE: Fluid BODY SITE: Foot L COLLECTED DATE/TIME: 09/30/2023 22:09 EST RECEIVED DATE/TIME: 09/30/2023 22:38 EST START DATE/TIME: 10/01/2023 12:02 EST FREE TEXT SOURCE: post-irrigation Vinod Quinteros DPM, DPM, Vinod Grossman FINAL REPORTS Final Report [] Verified Date/Time: 10/03/2023 11:43 EST No growth at 3 days. STAINS Gram Stain Report [] Verified Date/Time: 10/01/2023 12:06 EST 1+ White Blood Cells No organisms seen. Performing Locations R1: This test was performed at: [facility], [address] [place] [address], [id number] [place] [address], [address] [place], [place] [id number] on above:Performed By: #### [id number] #### [facility] [address] [place] [address] [id number] NoteMicrobiology PROCEDURE: Wound Culture [R1] SOURCE: Fluid BODY SITE: Foot L COLLECTED DATE/TIME: 09/30/2023 22:07 EST RECEIVED DATE/TIME: 09/30/2023 22:38 EST START DATE/TIME: 10/01/2023 12:02 EST FREE TEXT SOURCE: pre-irrigation Dolce DPM, Vinod Ngoc Dolwale DPM, Vinod Ngoc FINAL REPORTS Final Report [] Verified Date/Time: 10/03/2023 11:42 EST No growth at 3 days. STAINS Gram Stain Report [] Verified Date/Time: 10/01/2023 12:08 EST 1+ White Blood Cells No organisms seen. Performing Locations R1: This test was performed at: [facility], [address] [place] [address], [id number] [place] [address], [address] [place], [place] [id number] on above:Performed By: #### [id number] #### [facility] [address] [place] [address] [id number] NoteEchocardiology Procedure Exam Date/Time Accession # Ordering Echo Transthoracic 10/02/2023 15:51 EST [id number] [facility] A[facility] Complete CPT code 67256 Reason for Exam (Echo Transthoracic Complete) Dyspnea Report [address] [address] Adult Echocardiogram Report Name: VIKAS GRIMALDO Study Date: 10/02/2023 03:16 PM BP: 147/66 mmHg Patient Location: [address] [place] [address] HR: 85 : 1940 Gender: Male Height: 67 in Age: 82 yrs Ethnicity: T Weight: 152 lb Reason For Study: Dyspnea BSA: 1.8 m2 History: No known cardiac history Ordering Physician: Raiza Ta Performed By: Lisette Lala, GELA Interpretation Summary The left ventricle is normal in size. There is normal left ventricular wall thickness. The left ventricular ejection fraction is normal. Ejection Fraction = 60-65%. There is mild mitral regurgitation. Procedure A complete two-dimensional transthoracic echocardiogram was performed (2D, M- mode, spectral and color flow Doppler). Study quality is good. Left Ventricle The left ventricle is normal in size. There is normal left ventricular wall thickness. The left ventricular ejection fraction is normal. Ejection Fraction = 60-65%. Left Atrium The left atrium is mildly dilated. Right Atrium Right atrial size is normal. Right Ventricle The right ventricular systolic function is normal. Echocardiology Report Aortic Valve The trileaflet aortic valve opening is normal. There is mild aortic valve thickening. Mitral Valve Moderate thickening of the mitral valve leaflets. There is mild mitral regurgitation. Tricuspid Valve Structurally normal tricuspid valve. There is trace tricuspid regurgitation. Pulmonic Valve The pulmonic valve is normal. Arteries The aortic root is normal in size. Venous The inferior vena cava is normal in size, and collapses normally with respiration. Effusion There is no pericardial effusion. There is no pleural effusion noted on this exam. MMode/2D Measurements & Calculations RVDd: 3.5 cm LVIDd: 5.1 cm FS: 37.5 % Ao root diam: 3.2 cm IVSd: 0.74 cm LVIDs: 3.2 cm EDV(Teich): 123.9 ml LVPWd: 0.78 cm ESV(Teich): 40.6 ml Ao root area: 7.9 cm2 EF(Teich): 67.3 % LA dimension: 4.3 cm asc Aorta Diam: 3.4 cm LVLd ap4: 8.1 cm EDV(MOD-sp2): 101.0 ml SV(MOD-sp4): 49.4 ml EDV(MOD-sp4): 90.7 ml ESV(MOD-sp2): 38.3 ml LVLs ap4: 6.6 cm EF(MOD-sp2): 62.1 % ESV(MOD-sp4): 41.3 ml EF(MOD-sp4): 54.5 % TAPSE: 2.6 cm IVC Diam: 1.6 cm RVIDd/LVIDd: 0.69 EF (MOD-bp): 60.2 % LA Vol Index: 33.2 ml/m2 Doppler Measurements & Calculations MV E max marlene: 123.0 cm/sec Ao V2 max: 169.4 cm/sec LV V1 max P.5 mmHg MV A max marlene: 97.3 cm/sec MV dec slope: 741.7 cm/sec2 Ao max P.5 mmHg LV V1 mean P.0 mmHg MV E/A: 1.3 MV dec time: 0.17 sec Ao V2 mean: 117.6 cm/sec LV V1 max: 137.4 cm/sec Lat Peak E' Marlene: 7.0 cm/sec Ao mean P.3 mmHg LV V1 mean: 92.1 cm/sec E/E' Lat: 17.7 Ao V2 VTI: 30.1 cm LV V1 VTI: 25.1 cm Med Peak E' Marlene: 9.1 cm/sec E/E' Med: 13.5 Echocardiology Report TR max marlene: 199.8 cm/sec RAP systole: 3.0 mmHg AV VR: 0.81 MV P1/2t-pr_phl: 48.7 msec TR max P.0 mmHg RVSP(TR): 19.0 mmHg FINAL REPORT Dictated: 10/02/2023 3:16 pm Abhishek Arnold MD Signed (Electronic Signature): 10/03/2023 8:07 am Signed by: Abhishek Arnold MD Transcribed by: MD Technologist: [facility] Note CRM entered the room to discuss dc planning. PCP, DME and insurance discussed. Patient is alert andinvolved in plan of care. Contact information provided and whiteboard updated. [facility] has accepted. 3MN stay has been completed. Pending wound cxs. ANt dc TBD. CRM to follow. Pt will transport by dwight [facility]Comment on [facility]:Result Comment: Electronically Signed By: Agatha Brady.sandra\Date and Time Signed: 10/02/23 11:21 [id number] Hospital Discharge instructions Follow Up Care 10/02/2023 07:56:09 With:Orlando Pyle Address: [facility] [place] [address] [phone] Business (1) When: Unknown Comments:- CBC today and if HCT is 45 or higher then proceed with therapeutic phlebotomy 500 ml tomorrow.- Replete his iron with IV venofer, I ordered Venofer 300 mg for 3 doses.- Start Hydrea 500 mg once daily for now.- Continue antibiotics as per primary service and ID.- CBC and CMP once every 2 weeks with phlebotomy 500 ml every 2 weeks if HCT is 45 or higher.- Follow up with me in 8 weeks in office with iron studies prior. [facility]11-29-2023 NotePT Evaluation completed with an [facility] score of 17/24. Pt was able to perform bed mobility with Mod I and transfers with CGA to Min A. Pt had a mild LOB episode upon standing. Pt was able to ambulate with FWW, but a short distance. Pt would benefit [facility]23 NoteCRM entered the room to discuss dc planning. PCP, DME and insurance discussed. Patient is alert andinvolved in plan of care. Contact information provided and whiteboard updated. CRM spoke to Dr Quinteros, wound was closed, no wound vac needed. Pending final blood cxs. CRM did discuss possible need forLT IV atx, HH was discussed, pt admitted his home has no hot water or heat in the home, hes using space heaters. Consult to SW. ANt dc TBD. CRM to follow. Per consult, pt is willing to go to SNF if IV atx are required. Therapies to be added.[facility] CenterComment on above:Result Comment: Electronically Signed By: Agatha Brady\.br\Date and Time Signed: 10/01/23 11:20 [id number] Hospital Discharge instructions Patient Education 09/30/2023 17:23:43 [place] - Post Operative Instructions (Revised 06/30/14) (Custom) [place], [place] Vinod Quinteros DPM, FACRY POST OPERATIVE INSTRUCTIONS Keep bandage clean and dry and DO NOT REMOVE Keep foot elevated on white foam pillow Apply cryocuff to top of ankle, one hour on one hour off, until first office visit Non weight bearing on operative foot. Take pain medications as directed Do not be alarmed if you notice slight bleeding on the bandage, this is normal Report any increase in swelling to Dr. Quinteros immediately Resume regular diet. Call the office if you develop: persistent bleeding temperature above 100 degrees persistent vomiting calf pain or shortness of breath redness or pus at operative site Call the office tomorrow for 1st post-operative dressing change appointment. If you have any problems or questions, feel free to call the doctor at: [phone] or [phone] Quinteros paged. Patient signatureDate Dr. Vinod Quinteros DPM, FACFASDate Revised: 12-11 Follow Up Care 09/29/2023 16:21:37 With:Luis Snowden Address: [address] [place] [phone] Business (1) When: Unknown Comments:Establish care With:Orlando Pyle Address:Unknown When: Unknown Comments:Thrombocytosis With:Fernando Bucio Address: [address] [facility], [address] [address] [phone] Business (1) When: Unknown Comments:CHENG With:Manav Cervantes Address: [facility] [address] [place] [address]- Business (1) When: Unknown Comments:CKD With:[employer] Address:Unknown When: Unknown With:Vinod Quinteros Address: [facility] [address] [place] [address] 0 Business (1) When:5 to 7 days [facility]11-28-2023 Note [id number]#1.00Van[facility] 09-30-2023 NoteCRM entered the room to discuss dc planning. PCP, DME and insurance discussed. Patient is alert andinvolved in plan of care. Contact information provided and whiteboard updated. Pt will have surgerytoday at 3pm. Pending Oncology and SW. Medicare Rights form discussed and copy provided. Ant dc TBD. Pt is current with Dr Quinteros.[facility] CenterComment on above: Result Comment: Electronically Signed By: Agatha Brady.sandra\Date and Time Signed: 09/30/23 10:14 [id number] NoteChief Complaint pt reports left foot infection for one week, was sent to ed to be admitted History of Present Illness 82-year-old male who walked into Dr. Quinteros's office today with concerns regarding a left foot infection. He was seen and evaluated and found to have a left foot abscess. Apparently symptoms have beenongoing for about the past 1-2 weeks. 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 Didnt seem to have issues until just the past couple weeks. Has been able to ambulateon that foot. Denies drainage from it. No fevers. He has no past medical history as he has not eleanor doctor in years. Was sent over to the ER for evaluation. In the ED he was started on vancomycin and Zosyn for foot abscess. Lab work revealed JOSELINE with a creatinine of 1.8. He denies NSAID use, but routinely takes an ASA at nighttime for pain. Previously kg8123 creatinine was normal. Patient also with severely elevated platelet count as well at 2164K (high end of normal 500K). Review of Systems Constitutional: no fever, no chills, no sweats, no weakness Skin: no jaundice, no rash, no lesions, no petechiae ENMT: no ear pain, no sore throat, no congestion, no hoarseness Respiratory: + shortness of breath, no cough, no orthopnea, no wheezing Cardiovascular: no chest pain, no palpitations, no edema Gastrointestinal: no nausea, no vomiting, no diarrhea, no abdominal pain Genitourinary: no dysuria, no hematuria Musculoskeletal: no trauma,+ low back pain Neurologic: no headache, no dizziness Psychiatric: no depression, no anxiety Heme/Lymph: no bleeding tendency, no bruising tendency Additional ROS info: Except as noted in the above Review of Systems and in the History of Present Illness all other systems have been reviewed and are negative or noncontributory. Scoring Mccarty Fall Risk Score: 35 (09/29/23) Physical Exam Vitals & Measurements T: 36.8 ?C(Oral) TMIN: 36.7 ?C(Oral) TMAX: 36.8 ?C(Oral) HR: 86(Peripheral) RR: 18 BP: 149/80 SpO2:94% HT: 170.18 cm WT: 58.8 kg General: non-toxic, disheveled, poor hygiene Skin: warm, dry, no rash Head: AT/NC Neck: Trachea midline, supple Eye: normal conjunctiva, sclera clear Mouth: Poor dentition Cardiovascular: regular rate and rhythm, S1S2, normal peripheral perfusion Respiratory: Lungs with scattered rhonchi that improves with deep breathing, respirations non labored, breath sounds equal, no w/r/r Chest wall: no deformity Gastrointestinal: soft, NT, ND, no peritoneal signs Extremities: LLE with pitting edema, dorsum of left foot with abscess, no open area with drainage but seems to have a closed area that is scabbed over on the dorsum of the foot, + erythema Neurological: oriented, LOC appropriate for age, no focal deficits, normal speech Psychiatric: cooperative, affect appropriate for age, good eye contact Lab Results WBC: 24.3 E9/L High (09/29/23 17:13:00) RBC: 7.1 E12/L High (09/29/23 17:13:00) HGB: 13.7 gm/dL (09/29/23 17:13:00) Hct: 46.3 % (09/29/23 17:13:00) MCV: 64.9 fL Low (09/29/23 17:13:00) MCH: 19.2 pg Low (09/29/23 17:13:00) MCHC: 29.6 gm/dL Low (09/29/23 17:13:00) RDW: 21.9 % High (09/29/23 17:13:00) Platelet: 2164 E9/L Critical (09/29/23 17:13:00) MPV: 8.4 fL (09/29/23 17:13:00) Segs Man: 77 % High (09/29/23 17:13:00) Band Man: 0 % (09/29/23 17:13:00) Lymph Man: 6 % Low (09/29/23 17:13:00) Monocyte Man: 8 % (09/29/23 17:13:00) Eos Man: 4 % (09/29/23 17:13:00) Basophil Man: 4 % High (09/29/23 17:13:00) React Lymph Man: 1 % High (09/29/23 17:13:00) NRBC Man: 2 High (09/29/23 17:13:00) Segs Abs Man: 18.7 E9/L High (09/29/23 17:13:00) Lymph Abs Man: 1.7 E9/L (09/29/23 17:13:00) Knox Abs Man: 1.9 E9/L High (09/29/23 17:13:00) Eos Abs Man: 1 E9/L High (09/29/23 17:13:00) Basophil Abs Man: 1 E9/L High (09/29/23 17:13:00) Sed Rate Automated: 9 mm/hr (09/29/23 17:13:00) RBC Morph: See Morphology (09/29/23 17:13:00) Anisocytosis: Present (09/29/23 17:13:00) Microcyte: Present (09/29/23 17:13:00) Hypochromasia: Present (09/29/23 17:13:00) Polychromasia: Present (09/29/23:13:00) Ovalocytes: Present (09/29/23 17:13:00) Large Plt: Present (09/29/23 17:13:00) PT: 15.4 second(s) High (09/29/23 17:13:00) INR: 1.4 (09/29/23 17:13:00) PTT: 41.4 second(s) High (09/29/23 17:13:00) Glucose Lvl: 96 mg/dL (09/29/23 17:13:00) BUN: 31 mg/dL High (09/29/23 17:13:00) Creatinine: 1.8 mg/dL High (09/29/23 17:13:00) eGFR: 38 mL/min/1.73 m2 Low (09/29/23 17:13:00) BUN/Creat Ratio: 17 (09/29/23 17:13:00) Sodium Lvl: 139 mmol/L (09/29/23 17:13:00) Potassium Lvl: 3.8 mmol/L (09/29/23 17:13:00) Chloride: 109 mmol/L (09/29/23 17:13:00) CO2: 25 mmol/L (09/29/23 17:13:00) AGAP: 9 mEq/L (09/29/23 17:13:00) Calcium Lvl: 8.9 mg/dL (09/29/23 17:13:00) Alk Phos: 67 Int._Unit/L (09/29/23 17:13:00) ALT: 16 Int._Unit/L (09/29/23 17:13:00) AST: 23 Int._Unit/L (09/29/23 17:13:00) Total Protein: 6.6 gm/dL (09/29/23 17:13:00) A (more content not included)...[facility] CenterComment on above: Result Comment: Electronically Signed By: Sonya Dee MD\.sandra\Date and Time Signed: 09/29/23 22:10 ESTEvaluation + Plan note Future Appointments Appointment Date:10/21/2023 01:00:00 PM Scheduled Provider: Location:FT.ONCOLOGY Appointment Type:ONC Misc Treatment (FT) Appointment Date:10/24/2023 01:45:00 PM Scheduled Provider: Location:FT.PHYSICAL [place] Appointment Type:PT Eval (FT) Appointment Date:11/04/2023 01:00:00 PM Scheduled Provider: Location:FT.ONCOLOGY Appointment Type:ONC Misc Treatment (FT) Appointment Date:12/04/2023 12:15:00 PM Scheduled Provider:Fernando Bucio MD Location:[facility] Appointment Type:[facility] Follow Up Appointment Date:12/15/2023 02:00:00 PM Scheduled Provider: [facility] Type:[facility] Office Visit 30 (FT) Future Scheduled Tests Laboratory* CBC w/ Auto Diff 11/04/23 * CBC w/ Auto Diff 11/18/23 * CBC w/ Auto Diff 12/02/23 * CBC w/ Auto Diff 12/16/23 * Comprehensive Metabolic Panel 11/04/23 * Comprehensive Metabolic Panel 11/18/23 * Comprehensive Metabolic Panel 12/02/23 * Comprehensive Metabolic Panel 12/16/23 * Ferritin 12/15/23 * Iron Level 12/15/23 * Iron Percent Saturation 12/15/23 * Transferrin 12/15/23 [facility] Future Appointments Appointment Date:10/24/2023 01:45:00 PM Scheduled Provider: [facility] [place] Appoint[facility] Type:PT Eval (FT) Appointment Date:10/28/2023 11:00:00 AM Scheduled Provider: Location:.ONCOLOGY Appointment Type:ONC Venofer (FT) Appointment Date:11/04/2023 10:00:00 AM Scheduled Provider: Location:.ONCOLOGY Appointment Type:ONC Venofer (FT) Appointment Date:11/04/2023 01:00:00 PM Scheduled Provider: [facility] Type:ONC Misc Treatment (FT) Appointment Date:11/11/2023 11:00:00 AM Scheduled Provider: Location:.ONCOLOGY Appointment Type:ONC Venofer (FT) Appointment Date:12/04/2023 12:15:00 PM Scheduled Provider:Fernando Bucio MD Location:[facility] Appointment Type:[facility] Follow Up Appointment Date:12/15/2023 02:00:00 PM Scheduled Provider: Location:.ONCOLOGY Appointment Type:ONC Office Visit 30 (FT) Future Scheduled Tests Laboratory* CBC w/ Auto Diff 11/04/23 * CBC w/ Auto Diff 11/18/23 * CBC w/ Auto Diff 12/02/23 * CBC w/ Auto Diff 12/16/23 * Comprehensive Metabolic Panel 11/04/23 * Comprehensive Metabolic Panel 11/18/23 * Comprehensive Metabolic Panel 12/02/23 * Comprehensive Metabolic Panel 12/16/23 * Ferritin 12/15/23 * Iron Level 12/15/23 * Iron Percent Saturation 12/15/23 * Transferrin 12/15/23 [facility] Future Appointments Appointment Date:11/04/2023 10:00:00 AM Scheduled Provider: [facility] Type:ONC Venofer (FT) Appointment Date:11/04/2023 01:00:00 PM Scheduled Provider: [facility] Type:ONC Misc Treatment (FT) Appointment Date:11/11/2023 11:00:00 AM Scheduled Provider: [facility] Type:ONC Venofer (FT) Appointment Date:12/04/2023 12:15:00 PM Scheduled Provider:Fernando Bucio MD Location:[facility] Appointment Type:[facility] Follow Up Appointment Date:12/15/2023 02:00:00 PM Scheduled Provider: [facility] Type:ONC Office Visit 30 (FT) Future Scheduled Tests Laboratory* CBC w/ Auto Diff 11/18/23 * CBC w/ Auto Diff 12/02/23 * CBC w/ Auto Diff 12/16/23 * Comprehensive Metabolic Panel 11/18/23 * Comprehensive Metabolic Panel 12/02/23 * Comprehensive Metabolic Panel 12/16/23 * Ferritin 12/15/23 * Iron Level 12/15/23 * Iron Percent Saturation 12/15/23 * Transferrin 12/15/23 [facility] note Future Appointments Appointment Date:11/18/2023 01:00:00 PM Scheduled Provider: [facility] Type:ONC Misc Treatment (FT) Appointment Date:12/02/2023 10:00:00 AM Scheduled Provider: [facility] Type:ONC Misc Treatment (FT) Appointment Date:12/04/2023 12:15:00 PM Scheduled Provider:Fernando Bucio MD Location:[facility] Appointment Type:BAD Follow Up Appointment Date:12/15/2023 02:00:00 PM Scheduled Provider: [facility] Type:ONC Office Visit 30 (FT) Future Scheduled Tests Laboratory* CBC w/ Auto Diff 11/18/23 * CBC w/ Auto Diff 1/30/24 * CBC w/ Auto Diff 12/16/23 * Comprehensive Metabolic Panel 11/18/23 * Comprehensive Metabolic Panel 12/02/23 * Comprehensive Metabolic Panel 12/16/23 * Ferritin 12/15/23 * Iron Level 12/15/23 * Iron Percent Saturation 12/15/23 * Transferrin 12/15/23 [facility] note Future Appointments Appointment Date:12/15/2023 02:00:00 PM Scheduled Provider:Lashanda ANAYA, Orlando Caballero Location:.ONCOLOGY Appointment Type:ONC Office Visit 30 (FT) Appointment Date:02/16/2024 12:00:00 PM Scheduled Provider: Location:[facility] Appointment Type:Surgery FT Future Scheduled Tests Laboratory* CBC w/ Auto Diff 11/18/23 * CBC w/ Auto Diff 12/02/23 * CBC w/ Auto Diff 12/16/23 * Comprehensive Metabolic Panel 11/18/23 * Comprehensive Metabolic Panel 12/02/23 * Comprehensive Metabolic Panel 12/16/23 * Ferritin 12/15/23 * Iron Level 12/15/23 * Iron Percent Saturation 12/15/23 * Transferrin 12/15/23 [facility] Evaluation + Plan note Future Appointments Appointment Date:02/16/2024 12:00:00 PM Scheduled Provider: Location:[facility] Appointment Type:Surgery FT Future Scheduled Tests Laboratory* CBC w/ Auto Diff 11/18/23 * CBC w/ Auto Diff 12/02/23 * CBC w/ Auto Diff 12/16/23 * Comprehensive Metabolic Panel 11/18/23 * Comprehensive Metabolic Panel 12/02/23 * Comprehensive Metabolic Panel 12/16/23 * Ferritin 12/15/23 * Iron Level 12/15/23 * Iron Percent Saturation 12/15/23 * Transferrin 12/15/23 [facility] HospitalEvaluation noteNo assessment information available [facility] Work Phone: Hospital course Narrative No data available for this section [facility] HospitalH[facility] Discharge instructions No data available for this section [facility] HospitalProgress note No data available for this section [facility] Summary Purpose Family History No Family History Records Found Advance Directives No Advanced Directives Records FoundNo Advanced Directives Records FoundNo Advanced Directives Records FoundNo Advanced Directives Records Found Additional Source Comments Patient Care team informatio n (unrecognized section and content) Team Status: Active Member Role Status Dates PHYSICIAN NO FAMILY Primary Care Provider Active Team Status: Inactive Member Role Status Dates PHYSICIAN NO FAMILY Primary Care Provider Active Start: February 24, 2024 End: February 24, 2024 Carmen Calloway MD Attending Provider Active St art: February 24, 2024 End: February 24, 2024 Source Comments (unrecognize d section and content) In the event this informatio n is protected by the Federal Confidentiality of Alcohol and Drug Abuse Patient Records regulations: The Federal rules restrict any use of the information to criminally investigate or prosecute any alcohol or drug abuse patient.[facility] CenterIn the event this information is protected by the Federal Confidentiality of Alcohol and Drug Abuse Patient Records regulations: The Federal rules restrict any use of the information to criminally investigate or prosecute any alcohol or drug abuse patient.[facility] (unrecognized sect ion and content) No Status Records FoundNo Status Records FoundNo Status Records FoundNo Status Records Found INFORMATION SOURCE (unrecogn ized section and content) DATE CREATED AUTHOR 10/23/[address] [facility] DATE CREATED AUTHOR AUTHOR'S ORGANIZ ATION 10/30/2023 [facility] DATE CREATED AUTHOR AUTHOR'S ORGANIZ ATION 12/05/2023 [facility] DATE CREATED AUTHOR AUTHOR'S ORGANIZ ATION 03/01/2024 [facility] Goals (unrecognized section and content) Goals may be documented in a n alternate section FOR RECORDS PERTAINING TO PATIENTS WHO ARE OR HAVE BEEN ENROLLED IN A CHEMICAL DEPENDENCY/SUBSTANCEABUSE PROGRAM, SOME INFORMATION MAY BE OMITTED. This clinical summary was aggregated from multiple sources. Caution should be exercised in using it in the provision of clinical care. This summary normalizes information from multiple sources, and as a consequence, information in this document may materially change the coding, format and clinical context of patient data. In addition, data may be omitted in some cases. CLINICAL DECISIONS SHOULD BE BASED ON THE PRIMARY CLINICAL RECORDS. [facility] [facility]. provides no warranty or guarantee of the accuracy or completeness of information in this document.
--- NOTE | 2024-09-16 18:35 | US_ITS ---
The [address] [address] Patient Name: ASHLEIGH GRIMALDO MRN: [id number] date: 1940 Sex: M Assigned Patient Location: ED.MAIN Current Patient Location: Accession/Order Number: [id number] Exam Date: 09/16/2024 20:55 Report Date: 09/16/2024 22:39 At the request of: OLEG RAMIRES Procedure: US venous doppler UE RT ULTRASOUND OF THE UPPER EXTREMITY VENOUS RIGHT HISTORY: Extremity edema and pain. In an 83-year-old male COMPARISON: None. TECHNIQUE: Multiple sonographic images are performed of the extremity venous system with both color Doppler and grayscale Doppler. Doppler spectral analysis and color flow were performed of the extremity. FINDINGS: Limited evaluation due to edema bruising in a patient who is unable to move his arm. There is no evidence of thrombus within the visualized veins. There is adequate phasic and spontaneous flow. There is adequate compression. There is adequate augmentation. No evidence of DVT within the visualized veins of the visualized extremity. There is an avascular large complex mixed echogenic masslike area in the area of bruising that measures 61 x 42 mm. US/US venous doppler UE RT IMPRESSION: 1. Significant soft tissue swelling with a large complex avascular masslike region/complex cystic area most likely a hematoma that measures greater than 6 cm. 2. No evidence of DVT within visualized veins of the right upper extremity. Electronically authenticated by: INDIO KENNEY Date: 09/16/2024 22:39
--- NOTE | 2024-09-16 18:35 | CT_ITS ---
[address] [address] Patient Name: ASHLEIGH GRIMALDO MRN: [id number] date: 1940 Sex: M Assigned Patient Location: ER Current Patient Location: ED.[facility] Accession/Order Number: [id number] Exam Date: 09/16/2024 19:30 Report Date: 09/16/2024 21:27 At the request of: OLEG RAMIRES Procedure: CT cervical spine wo con EXAM: CT cervical spine wo con HISTORY: Ecchymosis to the chest. Poor historian. TECHNIQUE: Axial CT scans through the cervical spine were obtained without contrast administration. Sagittal and coronal reconstruction images were obtained. Dose reduction techniques were achieved by using: automated exposure control and/or adjustment of mA and /or kV according to patient size and/or the use of an iterative reconstruction technique. COMPARISON: None. FINDINGS: No acute fracture or posttraumatic malalignment is shown. A small posterior central disc protrusion each at C3-C4 and C5-C6 without central spinal stenosis. Moderate stenosis of the left C5-C6 neural foramen secondary to uncovertebral hypertrophy. The prevertebral soft tissue space appears normal. Visualized intracranial contents appear normal. The visualized neck shows no adenopathy. Visualized lung apices are clear. CT/CT cervical spine wo con IMPRESSION: No acute fracture or posttraumatic malalignment. Electronically authenticated by: SONI LOUIE Date: 09/16/2024 21:27
--- NOTE | 2024-09-16 18:35 | CT_ITS ---
The [address] [address] Patient Name: ASHLEIGH GRIMALDO MRN: [id number] date: 1940 Sex: M Assigned Patient Location: ER Current Patient Location: ER Accession/Order Number: [id number] Exam Date: 09/16/2024 07:30 Report Date: 09/16/2024 19:56 At the request of: OLEG RAMIRES Procedure: CT head/brain wo con CT OF THE BRAIN WITHOUT CONTRAST: 09/16/2024 7:30 AM EST HISTORY: Ecchymosis. TECHNIQUE: Contiguous axially collimated images were obtained through the intracranial compartment, from the vertex through the foramen magnum. Coronal and Sagittal reformatted images were prepared on a separate workstation and reviewed on the PACS for anatomic correlation. No contrast was administered. This CT exam was performed using one or more of the following dose reduction techniques: Automated exposure control, adjustment of the mA and/or kV according to patient size, or use of iterative reconstruction technique. Thin section coronal and sagittal images were reconstructed from the axial data set. All images were reviewed and interpreted. COMPARISON: None. FINDINGS: There is no intracranial hemorrhage or abnormal extra-axial fluid collection. To the extent of evaluated with noncontrast technique, there is no mass lesion appreciated. There is no mass-effect or shift of midline structures. There is global brain volume loss with prominence of the ventricles and CSF spaces. There is no evidence of hydrocephalus. There is no effacement of the basal cisterns. No evidence of acute ischemia. Patchy white matter low attenuation is nonspecific, but likely related to chronic small vessel ischemic change. There is no evidence of a lacunar infarct. The posterior fossa, brain stem, and fourth ventricle are normal. There is no tonsillar ectopy. The calvarium is intact, without destructive lesion or depressed fracture. Scalp tissues are intact. Normal orbits. No acute fractures. The mastoid air cells are well-aerated. The paranasal sinuses are normally aerated. CT/CT head/brain wo con IMPRESSION: 1. Changes of chronic small vessel ischemia in the periventricular white matter with secondary bilateral cerebral cortical atrophy. 2. No acute intracranial pathology. Electronically authenticated by: TAYLOR BUSBY Date: 09/16/2024 19:56
--- NOTE | 2024-09-16 18:35 | CT_ITS ---
The [address] [address] Patient Name: ASHLEIGH GRIMALDO MRN: [id number] date: 1940 Sex: M Assigned Patient Location: ER Current Patient Location: ER Accession/Order Number: [id number] Exam Date: 09/16/2024 19:30 Report Date: 09/16/2024 21:36 At the request of: OLEG RAMIRES Procedure: CT abdomen pelvis w con CT OF THE ABDOMEN AND PELVIS WITH CONTRAST: 09/16/2024 7:30 PM EST CLINICAL HISTORY: Bruising to chest. Back pain. COMPARISONS: None. TECHNIQUE: Thin section axial CT images were obtained from the lung bases to the pubis symphysis. This CT exam was performed using one or more of the following dose reduction techniques: Automated exposure control, adjustment of the mA and/or kV according to patient size, or use of iterative reconstruction technique. Thin section coronal and sagittal images were reconstructed from the axial data set. All images were reviewed and interpreted. CONTRAST: Intravenous contrast was administered. Type and amount is documented at the local institution. FINDINGS: LUNG BASES: There is some linear scarring and some atelectasis at both lung bases. Lung bases otherwise clear. No layering pleural effusion. No sliding-type hiatal hernia. LIVER: Simple cyst at the posterior inferior right hepatic lobe measuring 1.5 cm maximum diameter with mean attenuation values 18 Hounsfield units. Mild splenic enlargement. Normal portal vein enhancement. Liver otherwise negative. GALLBLADDER: Normal. BILIARY TREE: No ductal dilatation. PANCREAS: Normal. SPLEEN: Spleen is enlarged. Splenic length almost 14 cm. No splenic mass or cyst. ADRENALS: Normal. KIDNEYS: Normal, without urolithiasis or hydronephrosis. URINARY BLADDER: Layering hyperdense debris versus calcification at dependent bladder base to the right of midline. Linear hyperdensities noted. Bladder otherwise negative. Correlate urinalysis. PELVIC STRUCTURES: Enlarged prostate. Prostate extends 5.1 cm AP and 5.1 cm transverse. BOWEL: No evidence of obstruction, gross mass, or inflammatory change. There is no significant diverticulosis. There is no evidence of diverticulitis. There is a severe colonic stool retention with compact feces throughout large bowel from cecum to distal transverse colon and to lesser degree throughout the descending and sigmoid colon but still prominent. Correlate for fecal impaction and constipation. APPENDIX: The appendix is not clearly identified and there are no secondary findings to suggest acute appendicitis. LYMPH NODES: No pathologically enlarged lymph nodes identified. PERITONEUM: No intraperitoneal free air. No free intraperitoneal fluid. MESENTERY: Unremarkable. RETROPERITONEUM: The retroperitoneum is unremarkable. AORTA: Aorta and iliac arteries and branch vessels are patent and normal in caliber. No dissection. Scattered atherosclerotic calcific plaque throughout the wall of the aorta. BODY WALL: No body wall mass. OSSEOUS STRUCTURES: Age-indeterminate but overall chronic appearing superior endplate compression burst fracture of L4 with retropulsion of upper endplate. As can Desi at least moderate canal stenosis at L3-4. There is indeterminate fracture of the inferior endplate of L1. This appears more acute to subacute. Correlate with symptoms. There is some minor edema around the inferior endplate fracture of L1 suggesting more acute to subacute process. No paraspinal hematoma or edema at L4 suggesting more chronic injury. No additional fractures are seen within the abdomen or pelvis. Joint spaces are maintained. Slight convex left curvature of L4-5. Alignment otherwise satisfactory. No spinal listhesis or dislocation. There is some mild severe L5-S1 degenerative disc disease and loss of disc height loss and moderate posteriorly at L4-5. Both L4-5 and L5-S1 there is significant bilateral neural foraminal stenosis from disc osteophyte bulge. CT/CT abdomen pelvis w con IMPRESSION: 1. Age-indeterminate but more acute versus subacute inferior endplate fracture of L1 vertebrae. This could explain patient's low back pain. 2. Indeterminant cyst more severe superior endplate compression fracture of L4. There is a component appears more chronic although acute on chronic injury not excluded. 3. If warranted, MRI lumbar spine may better delineate chronicity of the above-described lumbar spine fractures. 4. Severe compact fecal retention throughout most of large bowel suggesting constipation and/or impaction. 5. Hepatosplenomegaly. 6. Simple right hepatic cyst. 7. Enlarged prostate. 8. Small stones and/or debris. Electronically authenticated by: TAYLOR BUSBY Date: 09/16/2024 21:36
--- NOTE | 2024-09-16 18:35 | CT_ITS ---
The [address] [address] Patient Name: ASHLEIGH GRIMALDO MRN: [id number] date: 1940 Sex: M Assigned Patient Location: ER Current Patient Location: ED.MAIN Accession/Order Number: [id number] Exam Date: 09/16/2024 19:30 Report Date: 09/16/2024 21:44 At the request of: OLEG RAMIRES Procedure: CT chest w con EXAM: CT chest w con HISTORY: Ecchymosis COMPARISON: CT abdomen and pelvis with contrast obtained the same day dictated separately. Please see this report. TECHNIQUE: Following nonionic IV contrast, thin section axial scans obtained from thoracic inlet to upper abdomen with coronal and sagittal reformatted images. Omnipaque 300, 100 mL given IV without event. Dose reduction techniques were achieved by using automated exposure control and/or adjustment of mA and/or kV according to patient size and/or use of iterative reconstruction technique. FINDINGS: There are prominent linear areas of scarring with some atelectasis in both lower lobes. Both lungs are hyperinflated with probable COPD. Lungs otherwise clear. No focal consolidation. No mass or nodule. No pneumothorax or pleural effusion. The central pulmonary arteries enhance satisfactorily. No evidence of PE. Cardiac chambers are normal in size. No pericardial or mediastinal fluid. No mediastinal or hilar lymphadenopathy. Normal caliber thoracic aorta. Maximum diameter of ascending thoracic aorta 3.7 cm. No dissection. There is some mild to moderate scattered calcific and soft plaque in the aortic arch along the descending thoracic aorta. Arch vessels are patent and unremarkable. There is some mild calcifications at aortic valve. There are no acute thoracic spine fractures. There is a acute/subacute fracture at the inferior endplate of L1. Correlate with onset of injury and symptoms. There is diffuse osseous demineralization. No lytic or blastic bone lesions. There is some chronic wedging of several lower thoracic vertebrae at T7, T8, T9 and minimally at T10. Old superior endplate Schmorl's node decompression changes at upper endplate of T4. Small Schmorl's node at inferior endplate of T7, T8 and T9. There is an old healed mid body sternal fracture. Healed with slight deformity and irregularity. No acute chest wall fracture. No acute rib fracture. There is an indeterminate soft tissue density beginning in the right axillary region and extending towards the inner margin of the upper right humerus, incompletely imaged on this study. Uncertain etiology. The query mass versus resolving hematoma. This extends greater than 12 cm in length and on axial scans measures at least 6.6 x 5.5 cm. Recommend dedicated right shoulder and humeral imaging with MRI with and without. If unable to obtain MRI, CT with and without when stable. There is severe left glenohumeral osteoarthritis. Chronic ossified intra-articular loose bodies along the anterior mid to lower margin of the left glenohumeral joint. These are large with several, largest measuring up to 2.9 cm. Extensive large bulky left humeral head osteophyte formation. No acute upper extremity fractures. No significant right glenohumeral joint narrowing. CT of the abdomen: obtained the same day dictated separately. Please see this report. Chest wall is intact. No obvious axillary adenopathy. CT/CT chest w con IMPRESSION: 1. Partial imaging of indeterminate soft tissue mass versus resolving hematoma within the upper inner margin of the right humerus extending from axilla distally, incompletely evaluated on this study. See above measurements. Could be posttraumatic. Mass not excluded. Recommend MRI with and without contrast. If patient cannot have MRI, CT with and without. 2. Acute/subacute inferior endplate fracture of L1. Underlying suspected osteoporosis. 3. Old healed mid sternal body fracture. 4. Significant linear areas of parenchymal scarring with some atelectasis in both lower lobes. Lungs otherwise clear. 5. Severe left glenohumeral osteoarthritis with large ossified intra-articular loose bodies. 6. Additional incidental chronic findings as discussed above. Electronically authenticated by: TAYLOR BUSBY Date: 09/16/2024 21:44
--- NOTE | 2024-09-16 18:39 | ECG_ITS ---
The [facility] Test Date: 2024-09-16 Pat Name: ASHLEIGH GRIMALDO Department: Room: - Gender: Male [employer] Man: : 1940 Requested By: SHARI MALIK Order Number: [id number] Reading MD: PIOTR FORMAN Measurements Intervals [place] Rate: 87 P: 90 [place]: 146 QRS: 76 QRSD: 94 T: 81 QT: 376 QTc: 420 Interpretive Statements 1100 Sinus rhythm 1470 with occasional supraventricular premature complexes 9140 abnormal rhythm ECG No previous ECG available for comparison Electronically Signed On 09-17-2024 5:03:19 EST by PIOTR FORMAN
--- NOTE | 2024-09-16 18:41 | ED_ITS ---
Documented by User: DAMIÁN Pelayo 09/16/24 21:42 HPI HPI - General Adult General Chief complaint: Extremity Problem, Nontraumatic Stated complaint: ARM INFECTION, BACK PAIN Time Seen by Provider: 09/16/24 18:14 Source: patient Mode of arrival: walk-in Limitations: no limitations History of Present Illness HPI narrative: This patient is an 83-year-old male with a history of polycythemia vera who presents to the emergency department for evaluation of multiple complaints. He states for the last week he has had pain in his left low back after carrying f [place]. He states he saw a friend who is a chiropractor but they would not try to manipulate his back until he had x-rays. He denies any specific falls or injuries. He states sometimes his back pain radiates to the abdomen. No vomiting, diarrhea or urinary symptoms. He is further noted to have ecchymosis to the right side of his chest, diffuse swelling and ecchymosis with erythema to the right arm. He is noted to have an abrasion to the right forearm. Patient is a very poor historian. He states he takes aspirin daily but no other blood thinners, he is a borderline type II diabetic. Related Data Home Medications ?Medication ?Instructions ?Recorded ?Confirmed No Known Home Medications 09/16/24 09/16/24 Allergies Allergy/AdvReac Type Severity Reaction Status Date / Time No Known Drug Allergies Allergy Verified 09/16/24 18:10 Opioid HPI Opioid Management Most Recent Opioid Data: Last Pain Scale 7 09/16/24 18:46 09/16/24 Review of Systems ROS Constitutional Denies: fever or chills Ears, nose, mouth, and throat Denies: throat pain or nasal congestion Cardiovascular Denies: chest pain Respiratory Denies: shortness of breath or cough Gastrointestinal Reports: abdominal pain; Denies: nausea, vomiting or diarrhea Musculoskeletal Reports: back pain, extremity pain and extremity swelling; Denies: neck pain Integumentary/Breast Denies: rash Neurological Denies: headache, numbness in extremities or weakness in extremities Hematologic/Lymphatic Denies: easy bruising or easy bleeding PFSH PFSH Social History Little interest or pleasure in doing things: not at all Feeling down, depressed, or hopeless: not at all Exam Narrative Exam Narrative: Gen.: Awake, alert, in no distress Head: Normocephalic, atraumatic ENT: Moist mucous membranes, no swelling or ecchymosis of the face Respiratory: No respiratory distress, lungs clear bilaterally; diffuse healing ecchymosis of the right chest wall Cardio: Regular rate and rhythm Extremities: Ecchymosis noted to the left antecubital area of the arm with no bony tenderness. Right arm is significantly swollen compared to the left with warm, erythematous induration noted to the medial bicep of the right upper arm, abrasion noted to the right forearm. 2+ right radial pulse with normal trauma surgeon strength in the right hand. Psych: Normal mood and affect Neuro: No focal neuro deficit Skin: Warm, dry Constitutional Vital Signs, click to edit/add: Last Vital Signs Temp 99.4 F 09/16/24 18:01 Pulse 85 09/16/24 19:20 Resp 19 09/16/24 19:20 BP 143/86 H 09/16/24 22:00 Pulse Ox 92 L 09/16/24 20:23 O2 Del Method Room Air 09/16/24 18:51 Course Vital Signs Vital signs: Vital Signs Temperature 99.4 F 09/16/24 18:01 Pulse Rate 94 H 09/16/24 18:01 Respiratory Rate 18 09/16/24 18:01 Blood Pressure 164/88 H 09/16/24 18:01 Pulse Oximetry 95 09/16/24 18:01 Oxygen Delivery Method Room Air 09/16/24 18:01 Temperature 99.4 F 09/16/24 18:01 Pulse Rate 85 09/16/24 19:20 Respiratory Rate 19 09/16/24 19:20 Blood Pressure 143/86 H 09/16/24 22:00 Pulse Oximetry 92 L 09/16/24 20:23 Oxygen Delivery Method Room Air 09/16/24 18:51 Medical Decision Making [facility] Narrative Medical decision making narrative: 2140: Patient was sent for CTs of the head, C-spine, chest/abdomen and pelvis. A ultrasound of the right upper extremity was also ordered. Patient declined pain medication that was ordered for him, he is otherwise hemodynamically stable. Labs show acute on chronic leukocytosis with bandemia and elevated platelet count. The remainder of his labs are grossly unremarkable although his TSH is significantly elevated. CT of the head and C-spine are unremarkable, we are still awaiting the results of his chest/abdomen/pelvis as well as the ultrasound of the right upper extremity. He was given Zosyn and vancomycin for antibiotic coverage. Case is turned over to attending physician at this time for disposition. SHARED APC VISIT, PHYSICIAN ATTESTATION: [id number] I performed a substantive part of the MDM during the patient?s E/M visit. I personally evaluated and examined the patient. I personally made or approved the documented management plan and acknowledge its risk of complications. Medical Records Medical records reviewed: Yes I reviewed the patient's medical records Lab Data Lab results reviewed: Yes I reviewed the patient's lab results Labs: Lab Results 09/16/24 09/16/24 09/16/24 Range/Units 18:32 18:57 19:23 WBC 41.4 H* (4.0-11.0) 10^3/uL RBC 6.65 H (4.70-6.10) 10^6/uL Hgb 13.5 L (14.0-18.0) g/dL Hct 46.9 (42.0-54.0) % MCV 70.5 L (80.0-94.0) fL MCH 20.3 L (25.9-34.0) pg MCHC 28.8 L (29.9-35.2) g/dL RDW 25.1 H (11.0-15.0) % Plt Count 3218 H* (150-450) 10^3/uL MPV 9.4 L (9.5-13.5) fL Neut % (Auto) Resource Forester Lymph % (Auto) Resource Forester [place] % (Auto) Resource Forester Eos % (Auto) Resource Forester Baso % (Auto) Resource Forester Neut # (Auto) Resource Forester Lymph # (Auto) Resource Forester [place] # (Auto) Resource Forester Eos # (Auto) Resource Forester Baso # (Auto) Resource Forester Abs Immat Gran (auto) Resource Forester Seg Neuts % (Manual) 90.0 H (43.0-75.0) Band Neutrophils % 2.0 (0-5) % Lymphocytes % (Manual) 2.0 L (20.5-60.0) % Monocytes % (Manual) 5.0 (1.7-12.0) % Eosinophils % (Manual) 0.0 L (0.9-7.0) % Basophils % (Manual) 1.0 (0.2-2.0) % Imm/Tot Granulo (auto) Resource Forester Neutrophils # (Manual) 37.26 H (1.4-6.5) 10^3/uL Band Neutrophils # 0.8 H (0.0-0.3) 10^3/uL Lymphocytes # (Manual) 0.82 L (1.20-3.80) 10^3/uL Monocytes # (Manual) 2.07 H (0.30-0.80) 10^3/uL Eosinophils # (Manual) 0.00 (0.00-0.70) 10^3/uL Basophils # (Manual) 0.41 H (0.00-0.10) 10^3/uL Nucleated RBCs 5 Giant Platelets 1+ Polychromasia 1+ Hypochromasia 1+ Anisocytosis 2+ ESR 10 (<=20) mm/hr PT 13.2 H (9.0-11.6) sec INR 1.28 VBG pH 7.470 H (7.330-7.430) VBG pCO2 31.3 L (40.0-52.0) mmHg Sodium 140 (136-145) mmol/L Potassium 4.0 (3.5-5.1) mmol/L Chloride 103 (98-107) mmol/L Carbon Dioxide 22.2 (21.0-32.0) mmol/L Anion Gap 18.8 BUN 28.0 H (7.0-18.0) mg/dL Creatinine 1.10 (0.70-1.30) mg/dL Est GFR ( Amer) >60 (>=60 mL/min/1.73m^2) Est GFR (Non-Af Amer) >60 (>=60 mL/min/1.73m^2) BUN/Creatinine Ratio 25.5 Glucose 130 H (74-106) mg/dL Lactate 1.7 (0.4-2.0) mmol/L Calcium 9.0 (8.5-10.1) mg/dL Magnesium 1.8 (1.8-2.4) mg/dL Total Bilirubin 1.3 H (0.2-1.0) mg/dL AST 58 H (15-37) U/L ALT 19 (16-63) U/L Alkaline Phosphatase 106 (46-116) U/L Total Creatine Kinase 151 (39-308) U/L Troponin I High Sens 10.6 (4.0-76.1) pg/mL C-Reactive Protein 6.16 H (<=0.50) mg/dL Total Protein 6.0 L (6.4-8.2) g/dL Albumin 2.8 L (3.4-5.0) g/dL Globulin 3.2 g/dL Albumin/Globulin Ratio 0.9 TSH 24.135 H (0.358-3.740) uIU/mL Free T4 0.69 L (0.76-1.46) ng/dL Free T3 1.07 L (2.18-3.98) pg/mL Urine Color (YELLOW) Urine Clarity (CLEAR) Urine pH (5.0-9.0) Ur Specific [place] (1.005-1.025) Urine Protein (NEG/TRACE) mg/dL Urine Glucose (UA) (NEGATIVE) mg/dL Urine Ketones (NEGATIVE) mg/dL Urine Occult Blood (NEGATIVE) Urine Nitrite (NEGATIVE) Urine Bilirubin (NEGATIVE) Urine Urobilinogen (0.2-1.0) EU/dL Ur Leukocyte Esterase (NEGATIVE) 09/16/24 Range/Units 21:05 WBC (4.0-11.0) 10^3/uL RBC (4.70-6.10) 10^6/uL Hgb (14.0-18.0) g/dL Hct (42.0-54.0) % MCV (80.0-94.0) fL MCH (25.9-34.0) pg MCHC (29.9-35.2) g/dL RDW (11.0-15.0) % Plt Count (150-450) 10^3/uL MPV (9.5-13.5) fL Neut % (Auto) Lymph % (Auto) [place] % (Auto) Eos % (Auto) Baso % (Auto) Neut # (Auto) Lymph # (Auto) [place] # (Auto) Eos # (Auto) Baso # (Auto) Abs Immat Gran (auto) Seg Neuts % (Manual) (43.0-75.0) Band Neutrophils % (0-5) % Lymphocytes % (Manual) (20.5-60.0) % Monocytes % (Manual) (1.7-12.0) % Eosinophils % (Manual) (0.9-7.0) % Basophils % (Manual) (0.2-2.0) % Imm/Tot Granulo (auto) Neutrophils # (Manual) (1.4-6.5) 10^3/uL Band Neutrophils # (0.0-0.3) 10^3/uL Lymphocytes # (Manual) (1.20-3.80) 10^3/uL Monocytes # (Manual) (0.30-0.80) 10^3/uL Eosinophils # (Manual) (0.00-0.70) 10^3/uL Basophils # (Manual) (0.00-0.10) 10^3/uL Nucleated RBCs Giant Platelets Polychromasia Hypochromasia Anisocytosis ESR (<=20) mm/hr PT (9.0-11.6) sec INR VBG pH (7.330-7.430) VBG pCO2 (40.0-52.0) mmHg Sodium (136-145) mmol/L Potassium (3.5-5.1) mmol/L Chloride (98-107) mmol/L Carbon Dioxide (21.0-32.0) mmol/L Anion Gap BUN (7.0-18.0) mg/dL Creatinine (0.70-1.30) mg/dL Est GFR ( Amer) (>=60 mL/min/1.73m^2) Est GFR (Non-Af Amer) (>=60 mL/min/1.73m^2) BUN/Creatinine Ratio Glucose (74-106) mg/dL Lactate (0.4-2.0) mmol/L Calcium (8.5-10.1) mg/dL Magnesium (1.8-2.4) mg/dL Total Bilirubin (0.2-1.0) mg/dL AST (15-37) U/L ALT (16-63) U/L Alkaline Phosphatase (46-116) U/L Total Creatine Kinase (39-308) U/L Troponin I High Sens (4.0-76.1) pg/mL C-Reactive Protein (<=0.50) mg/dL Total Protein (6.4-8.2) g/dL Albumin (3.4-5.0) g/dL Globulin g/dL Albumin/Globulin Ratio TSH (0.358-3.740) uIU/mL Free T4 (0.76-1.46) ng/dL Free T3 (2.18-3.98) pg/mL Urine Color Yellow (YELLOW) Urine Clarity Clear (CLEAR) Urine pH 5.5 (5.0-9.0) Ur Specific [place] 1.015 (1.005-1.025) Urine Protein 30 A (NEG/TRACE) mg/dL Urine Glucose (UA) Negative (NEGATIVE) mg/dL Urine Ketones Trace A (NEGATIVE) mg/dL Urine Occult Blood Negative (NEGATIVE) Urine Nitrite Negative (NEGATIVE) Urine Bilirubin Negative (NEGATIVE) Urine Urobilinogen 0.2 (0.2-1.0) EU/dL Ur Leukocyte Esterase Negative (NEGATIVE) Imaging Data CT scan - head: Attestation: I have reviewed the pertinent imaging results. Radiologist's impression: ITS Impressions Abdomen/Pelvis CT 09/16/24 18:35 IMPRESSION: 1. Age-indeterminate but more acute versus subacute inferior endplate fracture of L1 vertebrae. This could explain patient's low back pain. 2. Indeterminant cyst more severe superior endplate compression fracture of L4. There is a component appears more chronic although acute on chronic injury not excluded. 3. If warranted, MRI lumbar spine may better delineate chronicity of the above-described lumbar spine fractures. 4. Severe compact fecal retention throughout most of large bowel suggesting constipation and/or impaction. 5. Hepatosplenomegaly. 6. Simple right hepatic cyst. 7. Enlarged prostate. 8. Small stones and/or debris. Electronically authenticated by: TAYLOR BUSBY Date: 09/16/2024 21:[address] 09/16/24 18:35 IMPRESSION: No acute fracture or posttraumatic malalignment. Electronically authenticated by: SONI LOUIE Date: 09/16/2024 21:[address] 09/16/24 18:35 IMPRESSION: 1. Partial imaging of indeterminate soft tissue mass versus resolving hematoma within the upper inner margin of the right humerus extending from axilla distally, incompletely evaluated on this study. See above measurements. Could be posttraumatic. Mass not excluded. Recommend MRI with and without contrast. If patient cannot have MRI, CT with and without. 2. Acute/subacute inferior endplate fracture of L1. Underlying suspected osteoporosis. 3. Old healed mid sternal body fracture. 4. Significant linear areas of parenchymal scarring with some atelectasis in both lower lobes. Lungs otherwise clear. 5. Severe left glenohumeral osteoarthritis with large ossified intra-articular loose bodies. 6. Additional incidental chronic findings as discussed above. Electronically authenticated by: TAYLOR BUSBY Date: 09/16/2024 21:[address] 09/16/24 18:35 IMPRESSION: 1. Changes of chronic small vessel ischemia in the periventricular white matter with secondary bilateral cerebral cortical atrophy. 2. No acute intracranial pathology. Electronically authenticated by: TAYLOR BUSBY Date: 09/16/2024 19:56 Venous Doppler Study 09/16/24 18:35 IMPRESSION: 1. Significant soft tissue swelling with a large complex avascular masslike region/complex cystic area most likely a hematoma that measures greater than 6 cm. 2. No evidence of DVT within visualized veins of the right upper extremity. Electronically authenticated by: INDIO KENNEY Date: 09/16/2024 22:39 CT scan - chest: Radiologist's impression: ITS Impressions Abdomen/Pelvis CT 09/16/24 18:35 IMPRESSION: 1. Age-indeterminate but more acute versus subacute inferior endplate fracture of L1 vertebrae. This could explain patient's low back pain. 2. Indeterminant cyst more severe superior endplate compression fracture of L4. There is a component appears more chronic although acute on chronic injury not excluded. 3. If warranted, MRI lumbar spine may better delineate chronicity of the above-described lumbar spine fractures. 4. Severe compact fecal retention throughout most of large bowel suggesting constipation and/or impaction. 5. Hepatosplenomegaly. 6. Simple right hepatic cyst. 7. Enlarged prostate. 8. Small stones and/or debris. Electronically authenticated by: TAYLOR BUSBY Date: 09/16/2024 21:[address] 09/16/24 18:35 IMPRESSION: No acute fracture or posttraumatic malalignment. Electronically authenticated by: SONI LOUIE Date: 09/16/2024 21:[address] 09/16/24 18:35 IMPRESSION: 1. Partial imaging of indeterminate soft tissue mass versus resolving hematoma within the upper inner margin of the right humerus extending from axilla distally, incompletely evaluated on this study. See above measurements. Could be posttraumatic. Mass not excluded. Recommend MRI with and without contrast. If patient cannot have MRI, CT with and without. 2. Acute/subacute inferior endplate fracture of L1. Underlying suspected osteoporosis. 3. Old healed mid sternal body fracture. 4. Significant linear areas of parenchymal scarring with some atelectasis in both lower lobes. Lungs otherwise clear. 5. Severe left glenohumeral osteoarthritis with large ossified intra-articular loose bodies. 6. Additional incidental chronic findings as discussed above. Electronically authenticated by: TAYLOR BUSBY Date: 09/16/2024 21:[address] 09/16/24 18:35 IMPRESSION: 1. Changes of chronic small vessel ischemia in the periventricular white matter with secondary bilateral cerebral cortical atrophy. 2. No acute intracranial pathology. Electronically authenticated by: TAYLOR BUSBY Date: 09/16/2024 19:56 Venous Doppler Study 09/16/24 18:35 IMPRESSION: 1. Significant soft tissue swelling with a large complex avascular masslike region/complex cystic area most likely a hematoma that measures greater than 6 cm. 2. No evidence of DVT within visualized veins of the right upper extremity. Electronically authenticated by: INDIO KENNEY Date: 09/16/2024 22:39 ECG Data Attestation: I personally reviewed and interpreted this ECG as follows: (Normal sinus rhythm at a rate of 87 with occasional PVC, no acute ST elevation. EKG reviewed by attending physician) Discharge Plan Discharge Chief Complaint: Extremity Problem, Nontraumatic Clinical Impression: Cellulitis of arm, right, Closed compression fracture of L1 vertebra Patient Disposition: Admitted As Inpatient Time of Disposition Decision: 23:03 Condition: Fair Documented by User: Sanjay Larsen MD 09/16/24 23:05 HPI HPI - General Adult General Chief complaint: Extremity Problem, Nontraumatic Stated complaint: ARM INFECTION, BACK PAIN Time Seen by Provider: 09/16/24 18:14 Related Data Home Medications ?Medication ?Instructions ?Recorded ?Confirmed No Known Home Medications 09/16/24 09/16/24 Allergies Allergy/AdvReac Type Severity Reaction Status Date / Time No Known Drug Allergies Allergy Verified 09/16/24 18:10 Opioid HPI Opioid Management Most Recent Opioid Data: Last Pain Scale 7 09/16/24 18:46 09/16/24 PFSH PFSH Social History Little interest or pleasure in doing things: not at all Feeling down, depressed, or hopeless: not at all Exam Constitutional Vital Signs, click to edit/add: Last Vital Signs Temp 99.4 F 09/16/24 18:01 Pulse 85 09/16/24 19:20 Resp 19 09/16/24 19:20 BP 143/86 H 09/16/24 22:00 Pulse Ox 92 L 09/16/24 20:23 O2 Del Method Room Air 09/16/24 18:51 Course Vital Signs Vital signs: Vital Signs Temperature 99.4 F 09/16/24 18:01 Pulse Rate 94 H 09/16/24 18:01 Respiratory Rate 18 09/16/24 18:01 Blood Pressure 164/88 H 09/16/24 18:01 Pulse Oximetry 95 09/16/24 18:01 Oxygen Delivery Method Room Air 09/16/24 18:01 Temperature 99.4 F 09/16/24 18:01 Pulse Rate 85 09/16/24 19:20 Respiratory Rate 19 09/16/24 19:20 Blood Pressure 143/86 H 09/16/24 22:00 Pulse Oximetry 92 L 09/16/24 20:23 Oxygen Delivery Method Room Air 09/16/24 18:51 Medical Decision Making [facility] Narrative Medical decision making narrative: 2140: Patient was sent for CTs of the head, C-spine, chest/abdomen and pelvis. A ultrasound of the right upper extremity was also ordered. Patient declined pain medication that was ordered for him, he is otherwise hemodynamically stable. Labs show acute on chronic leukocytosis with bandemia and elevated platelet count. The remainder of his labs are grossly unremarkable although his TSH is significantly elevated. CT of the head and C-spine are unremarkable, we are still awaiting the results of his chest/abdomen/pelvis as well as the ultrasound of the right upper extremity. He was given Zosyn and vancomycin for antibiotic coverage. Case is turned over to attending physician at this time for disposition. SHARED APC VISIT, PHYSICIAN ATTESTATION: [id number] I performed a substantive part of the MDM during the patient?s E/M visit. I personally evaluated and examined the patient. I personally made or approved the documented management plan and acknowledge its risk of complications. JK 11:00pm CT and ultrasound showed no evidence of DVT or PE. It shows hematoma. He has been given IV antibiotics. WBC is quite elevated but he has a history of polycythemia vera. Findings are discussed with the patient and tetanus status is updated tonight as well. patient services assistant consult was recommended. Findings are discussed with the patient. Differential Diagnosis Differential Diagnosis: Cellulitis, DVT, PE Lab Data Lab results reviewed: Yes I reviewed the patient's lab results Labs: Lab Results 09/16/24 09/16/24 09/16/24 Range/Units 18:32 18:57 19:23 WBC 41.4 H* (4.0-11.0) 10^3/uL RBC 6.65 H (4.70-6.10) 10^6/uL Hgb 13.5 L (14.0-18.0) g/dL Hct 46.9 (42.0-54.0) % MCV 70.5 L (80.0-94.0) fL MCH 20.3 L (25.9-34.0) pg MCHC 28.8 L (29.9-35.2) g/dL RDW 25.1 H (11.0-15.0) % Plt Count 3218 H* (150-450) 10^3/uL MPV 9.4 L (9.5-13.5) fL Neut % (Auto) Resource Forester Lymph % (Auto) Resource Forester [place] % (Auto) Resource Forester Eos % (Auto) Resource Forester Baso % (Auto) Resource Forester Neut # (Auto) Resource Forester Lymph # (Auto) Resource Forester [place] # (Auto) Resource Forester Eos # (Auto) Resource Forester Baso # (Auto) Resource Forester Abs Immat Gran (auto) Resource Forester Seg Neuts % (Manual) 90.0 H (43.0-75.0) Band Neutrophils % 2.0 (0-5) % Lymphocytes % (Manual) 2.0 L (20.5-60.0) % Monocytes % (Manual) 5.0 (1.7-12.0) % Eosinophils % (Manual) 0.0 L (0.9-7.0) % Basophils % (Manual) 1.0 (0.2-2.0) % Imm/Tot Granulo (auto) Resource Forester Neutrophils # (Manual) 37.26 H (1.4-6.5) 10^3/uL Band Neutrophils # 0.8 H (0.0-0.3) 10^3/uL Lymphocytes # (Manual) 0.82 L (1.20-3.80) 10^3/uL Monocytes # (Manual) 2.07 H (0.30-0.80) 10^3/uL Eosinophils # (Manual) 0.00 (0.00-0.70) 10^3/uL Basophils # (Manual) 0.41 H (0.00-0.10) 10^3/uL Nucleated RBCs 5 Giant Platelets 1+ Polychromasia 1+ Hypochromasia 1+ Anisocytosis 2+ ESR 10 (<=20) mm/hr PT 13.2 H (9.0-11.6) sec INR 1.28 VBG pH 7.470 H (7.330-7.430) VBG pCO2 31.3 L (40.0-52.0) mmHg Sodium 140 (136-145) mmol/L Potassium 4.0 (3.5-5.1) mmol/L Chloride 103 (98-107) mmol/L Carbon Dioxide 22.2 (21.0-32.0) mmol/L Anion Gap 18.8 BUN 28.0 H (7.0-18.0) mg/dL Creatinine 1.10 (0.70-1.30) mg/dL Est GFR ( Amer) >60 (>=60 mL/min/1.73m^2) Est GFR (Non-Af Amer) >60 (>=60 mL/min/1.73m^2) BUN/Creatinine Ratio 25.5 Glucose 130 H (74-106) mg/dL Lactate 1.7 (0.4-2.0) mmol/L Calcium 9.0 (8.5-10.1) mg/dL Magnesium 1.8 (1.8-2.4) mg/dL Total Bilirubin 1.3 H (0.2-1.0) mg/dL AST 58 H (15-37) U/L ALT 19 (16-63) U/L Alkaline Phosphatase 106 (46-116) U/L Total Creatine Kinase 151 (39-308) U/L Troponin I High Sens 10.6 (4.0-76.1) pg/mL C-Reactive Protein 6.16 H (<=0.50) mg/dL Total Protein 6.0 L (6.4-8.2) g/dL Albumin 2.8 L (3.4-5.0) g/dL Globulin 3.2 g/dL Albumin/Globulin Ratio 0.9 TSH 24.135 H (0.358-3.740) uIU/mL Free T4 0.69 L (0.76-1.46) ng/dL Free T3 1.07 L (2.18-3.98) pg/mL Urine Color (YELLOW) Urine Clarity (CLEAR) Urine pH (5.0-9.0) Ur Specific [place] (1.005-1.025) Urine Protein (NEG/TRACE) mg/dL Urine Glucose (UA) (NEGATIVE) mg/dL Urine Ketones (NEGATIVE) mg/dL Urine Occult Blood (NEGATIVE) Urine Nitrite (NEGATIVE) Urine Bilirubin (NEGATIVE) Urine Urobilinogen (0.2-1.0) EU/dL Ur Leukocyte Esterase (NEGATIVE) 09/16/24 Range/Units 21:05 WBC (4.0-11.0) 10^3/uL RBC (4.70-6.10) 10^6/uL Hgb (14.0-18.0) g/dL Hct (42.0-54.0) % MCV (80.0-94.0) fL MCH (25.9-34.0) pg MCHC (29.9-35.2) g/dL RDW (11.0-15.0) % Plt Count (150-450) 10^3/uL MPV (9.5-13.5) fL Neut % (Auto) Lymph % (Auto) [place] % (Auto) Eos % (Auto) Baso % (Auto) Neut # (Auto) Lymph # (Auto) [place] # (Auto) Eos # (Auto) Baso # (Auto) Abs Immat Gran (auto) Seg Neuts % (Manual) (43.0-75.0) Band Neutrophils % (0-5) % Lymphocytes % (Manual) (20.5-60.0) % Monocytes % (Manual) (1.7-12.0) % Eosinophils % (Manual) (0.9-7.0) % Basophils % (Manual) (0.2-2.0) % Imm/Tot Granulo (auto) Neutrophils # (Manual) (1.4-6.5) 10^3/uL Band Neutrophils # (0.0-0.3) 10^3/uL Lymphocytes # (Manual) (1.20-3.80) 10^3/uL Monocytes # (Manual) (0.30-0.80) 10^3/uL Eosinophils # (Manual) (0.00-0.70) 10^3/uL Basophils # (Manual) (0.00-0.10) 10^3/uL Nucleated RBCs Giant Platelets Polychromasia Hypochromasia Anisocytosis ESR (<=20) mm/hr PT (9.0-11.6) sec INR VBG pH (7.330-7.430) VBG pCO2 (40.0-52.0) mmHg Sodium (136-145) mmol/L Potassium (3.5-5.1) mmol/L Chloride (98-107) mmol/L Carbon Dioxide (21.0-32.0) mmol/L Anion Gap BUN (7.0-18.0) mg/dL Creatinine (0.70-1.30) mg/dL Est GFR ( Amer) (>=60 mL/min/1.73m^2) Est GFR (Non-Af Amer) (>=60 mL/min/1.73m^2) BUN/Creatinine Ratio Glucose (74-106) mg/dL Lactate (0.4-2.0) mmol/L Calcium (8.5-10.1) mg/dL Magnesium (1.8-2.4) mg/dL Total Bilirubin (0.2-1.0) mg/dL AST (15-37) U/L ALT (16-63) U/L Alkaline Phosphatase (46-116) U/L Total Creatine Kinase (39-308) U/L Troponin I High Sens (4.0-76.1) pg/mL C-Reactive Protein (<=0.50) mg/dL Total Protein (6.4-8.2) g/dL Albumin (3.4-5.0) g/dL Globulin g/dL Albumin/Globulin Ratio TSH (0.358-3.740) uIU/mL Free T4 (0.76-1.46) ng/dL Free T3 (2.18-3.98) pg/mL Urine Color Yellow (YELLOW) Urine Clarity Clear (CLEAR) Urine pH 5.5 (5.0-9.0) Ur Specific [place] 1.015 (1.005-1.025) Urine Protein 30 A (NEG/TRACE) mg/dL Urine Glucose (UA) Negative (NEGATIVE) mg/dL Urine Ketones Trace A (NEGATIVE) mg/dL Urine Occult Blood Negative (NEGATIVE) Urine Nitrite Negative (NEGATIVE) Urine Bilirubin Negative (NEGATIVE) Urine Urobilinogen 0.2 (0.2-1.0) EU/dL Ur Leukocyte Esterase Negative (NEGATIVE) Imaging Data CT scan - head: Radiologist's impression: ITS Impressions Abdomen/Pelvis CT 09/16/24 18:35 IMPRESSION: 1. Age-indeterminate but more acute versus subacute inferior endplate fracture of L1 vertebrae. This could explain patient's low back pain. 2. Indeterminant cyst more severe superior endplate compression fracture of L4. There is a component appears more chronic although acute on chronic injury not excluded. 3. If warranted, MRI lumbar spine may better delineate chronicity of the above-described lumbar spine fractures. 4. Severe compact fecal retention throughout most of large bowel suggesting constipation and/or impaction. 5. Hepatosplenomegaly. 6. Simple right hepatic cyst. 7. Enlarged prostate. 8. Small stones and/or debris. Electronically authenticated by: TAYLOR BUSBY Date: 09/16/2024 21:[address] 09/16/24 18:35 IMPRESSION: No acute fracture or posttraumatic malalignment. Electronically authenticated by: SONI LOUIE Date: 09/16/2024 21:[address] 09/16/24 18:35 IMPRESSION: 1. Partial imaging of indeterminate soft tissue mass versus resolving hematoma within the upper inner margin of the right humerus extending from axilla distally, incompletely evaluated on this study. See above measurements. Could be posttraumatic. Mass not excluded. Recommend MRI with and without contrast. If patient cannot have MRI, CT with and without. 2. Acute/subacute inferior endplate fracture of L1. Underlying suspected osteoporosis. 3. Old healed mid sternal body fracture. 4. Significant linear areas of parenchymal scarring with some atelectasis in both lower lobes. Lungs otherwise clear. 5. Severe left glenohumeral osteoarthritis with large ossified intra-articular loose bodies. 6. Additional incidental chronic findings as discussed above. Electronically authenticated by: TAYLOR BUSBY Date: 09/16/2024 21:[address] 09/16/24 18:35 IMPRESSION: 1. Changes of chronic small vessel ischemia in the periventricular white matter with secondary bilateral cerebral cortical atrophy. 2. No acute intracranial pathology. Electronically authenticated by: TAYLOR BUSBY Date: 09/16/2024 19:56 Venous Doppler Study 09/16/24 18:35 IMPRESSION: 1. Significant soft tissue swelling with a large complex avascular masslike region/complex cystic area most likely a hematoma that measures greater than 6 cm. 2. No evidence of DVT within visualized veins of the right upper extremity. Electronically authenticated by: INDIO KENNEY Date: 09/16/2024 22:39 CT scan - chest: Radiologist's impression: ITS Impressions Abdomen/Pelvis CT 09/16/24 18:35 IMPRESSION: 1. Age-indeterminate but more acute versus subacute inferior endplate fracture of L1 vertebrae. This could explain patient's low back pain. 2. Indeterminant cyst more severe superior endplate compression fracture of L4. There is a component appears more chronic although acute on chronic injury not excluded. 3. If warranted, MRI lumbar spine may better delineate chronicity of the above-described lumbar spine fractures. 4. Severe compact fecal retention throughout most of large bowel suggesting constipation and/or impaction. 5. Hepatosplenomegaly. 6. Simple right hepatic cyst. 7. Enlarged prostate. 8. Small stones and/or debris. Electronically authenticated by: TAYLOR BUSBY Date: 09/16/2024 21:[address] 09/16/24 18:35 IMPRESSION: No acute fracture or posttraumatic malalignment. Electronically authenticated by: SONI LOUIE Date: 09/16/2024 21:[address] 09/16/24 18:35 IMPRESSION: 1. Partial imaging of indeterminate soft tissue mass versus resolving hematoma within the upper inner margin of the right humerus extending from axilla distally, incompletely evaluated on this study. See above measurements. Could be posttraumatic. Mass not excluded. Recommend MRI with and without contrast. If patient cannot have MRI, CT with and without. 2. Acute/subacute inferior endplate fracture of L1. Underlying suspected osteoporosis. 3. Old healed mid sternal body fracture. 4. Significant linear areas of parenchymal scarring with some atelectasis in both lower lobes. Lungs otherwise clear. 5. Severe left glenohumeral osteoarthritis with large ossified intra-articular loose bodies. 6. Additional incidental chronic findings as discussed above. Electronically authenticated by: TAYLOR BUSBY Date: 09/16/2024 21:[address] 09/16/24 18:35 IMPRESSION: 1. Changes of chronic small vessel ischemia in the periventricular white matter with secondary bilateral cerebral cortical atrophy. 2. No acute intracranial pathology. Electronically authenticated by: TAYLOR BUSBY Date: 09/16/2024 19:56 Venous Doppler Study 09/16/24 18:35 IMPRESSION: 1. Significant soft tissue swelling with a large complex avascular masslike region/complex cystic area most likely a hematoma that measures greater than 6 cm. 2. No evidence of DVT within visualized veins of the right upper extremity. Electronically authenticated by: INDIO KENNEY Date: 09/16/2024 22:39 Discharge Plan Discharge Chief Complaint: Extremity Problem, Nontraumatic Clinical Impression: Cellulitis of arm, right, Closed compression fracture of L1 vertebra Patient Disposition: Admitted As Inpatient Time of Disposition Decision: 23:03 Condition: Fair
[2024-09-16 18:54] LABS: Hematocrit 46.9 % (42.0-54.0); Hemoglobin 13.5 g/dL (14.0-18.0); Mean Corpuscular HGB Conc 28.8 g/dL (29.9-35.2); Mean Corpuscular Hemoglobin 20.3 pg (25.9-34.0); Mean Corpuscular Volume 70.5 fL (80.0-94.0); Mean Platelet Volume 9.4 fL (9.5-13.5); Red Blood Count 6.65 10^6/uL (4.70-6.10); Red Cell Distribution Width 25.1 % (11.0-15.0)
[2024-09-16 18:58] LABS: Platelet Count 3218 10^3/uL (150-450); White Blood Count 41.4 10^3/uL (4.0-11.0)
[2024-09-16 19:01] LABS: Erythrocyte Sedimentation Rate 10 mm/hr (<=20)
[2024-09-16 19:02] LABS: Creatine Kinase 151 U/L (39-308)
[2024-09-16 19:04] LABS: Anion Gap 18.8
[2024-09-16 19:11] LABS: Lactate/Lactic Acid 1.7 mmol/L (0.4-2.0)
[2024-09-16 19:12] LABS: PCO2 VBG 31.3 mmHg (40.0-52.0)
[2024-09-16 19:12] LABS: Alanine Aminotransferase 19 U/L (16-63); Albumin Globulin Ratio 0.9; Albumin Level 2.8 g/dL (3.4-5.0); Alkaline Phosphatase 106 U/L (46-116); Aspartate Amino Transferase 58 U/L (15-37); BUN Creatinine Ratio 25.5; Bilirubin Total 1.3 mg/dL (0.2-1.0); C Reactive Protein 6.16 mg/dL (<=0.50); Carbon Dioxide 22.2 mmol/L (21.0-32.0); Chloride 103 mmol/L (98-107); Estimated GFR (African America >60 (>=60 mL/min/1.73m^2); Estimated GFR (Non-African Ame >60 (>=60 mL/min/1.73m^2); Globulin 3.2 g/dL; Glucose 130 mg/dL (74-106); Magnesium 1.8 mg/dL (1.8-2.4); Sodium 140 mmol/L (136-145); Thyroid Stimulating Hormone 24.135 uIU/mL (0.358-3.740); Troponin I High Sensitivity 10.6 pg/mL (4.0-76.1)
[2024-09-16] MEDS: ADACEL DIPH,PERTUSS(ACELL),TET VAC/PF 0.5 ML ADULT SYRINGE IM (19:12)
[2024-09-16 19:46] LABS: Free T4 0.69 ng/dL (0.76-1.46)
[2024-09-16 19:48] LABS: INR 1.28; Prothrombin Time 13.2 sec (9.0-11.6)
[2024-09-16 19:52] LABS: Free T3 1.07 pg/mL (2.18-3.98)
[2024-09-16] MEDS: VANCOMYCIN HCL 1,000 MG in 0.9 % SODIUM CHLORIDE 250 ML 250 MG IV (19:55)
[2024-09-16 20:07] LABS: Band Neutrophils Absolute 0.8 10^3/uL (0.0-0.3); Segmented Neut Absolute Manual 37.26 10^3/uL (1.4-6.5)
[2024-09-16 20:08] LABS: Basophils Abs Manual 0.41 10^3/uL (0.00-0.10); Giant Platelets 1+; Lymphocytes Absolute Manual 0.82 10^3/uL (1.20-3.80); Monocytes Absolute Manual 2.07 10^3/uL (0.30-0.80); Nucleated Red Blood Cells 5; Polychromasia 1+
[2024-09-16 20:10] LABS: Anisocytosis 2+
[2024-09-16 20:11] LABS: Hypochromasia 1+
[2024-09-16 21:25] LABS: Bilirubin Urine NEGATIVE (NEGATIVE); Blood Urine NEGATIVE (NEGATIVE); Clarity Urine CLEAR (CLEAR); Color Urine YELLOW (YELLOW); Glucose Urine UA NEGATIVE (NEGATIVE); Ketones Urine TRACE mg/dL (NEGATIVE); Leukocyte Esterase Urine NEGATIVE (NEGATIVE); Nitrite Urine NEGATIVE (NEGATIVE); Protein Urine 30 mg/dL (NEG/TRACE); Specific Gravity Urine 1.015 (1.005-1.025); Urine Microscopic Indicated NO; Urobilinogen Urine 0.2 EU/dL (0.2-1.0); pH Urine 5.5 (5.0-9.0)
[2024-09-16] MEDS: PIPERACILLIN SODIUM/TAZOBACTAM 4.5 GM in 0.9 % SODIUM CHLORIDE 50 ML IV (22:06)
--- OUTSIDE RECORDS SUMMARY | 2024-09-16 23:39 | XMS_ITS | CCD ---
Author Organization [facility] Care Team Providers Care Choir Member Name [employer], GENERIC Primary Care [...] Consulting Unavailable Akkina, Manav Consulting Unavailable Blank, Bernard S Consulting Unavailable [...] for 14 day(s), 28 tab(s), Refill(s) 0, [facility], 167, cm, 09/29/23 16:31:00 EST, Height/Length [...] Daily, # 30 tab(s), Refills(s) 0, Pharmacy: [facility], 167, cm, 09/29/23 16:31:00 EST, Height/Length Dosing, 62, kg, 09/29/23 16:31:00 EST, Weight Dosing Start Date: 10/03/23 Status: Ordered ferrous sulfate 325 mg oral tablet (8 sources) Start: 10-03-2023 take 1 tablet by mouth every other day ferrous sulfate 325 mg Tab 325 mg = 1 tab(s), Oral, Every other day, # 30 tab(s), Refills(s) 0, Pharmacy: [facility], 167, cm, 09/29/23 16:31:00 EST, Height/Length Dosing, 62, kg, 09/29/23 16:31:00 EST, Weight Dosing Start Date: 10/03/23 Status: Ordered hydroxyurea 500 mg oral capsule (7 sources) Antimetabolite Start: 10-20-2023 take 1 capsule by mouth once daily Hydrea 500 mg Cap 500 mg = 1 cap(s), Oral, Daily, # 30 cap(s), Refills(s) 5, Pharmacy: [facility], 170, cm, 10/20/23 14:28:00 EST, Height/Length [...] Daily, # 30 tab(s), Refills(s) 0, Pharmacy: [facility], 167, cm, 09/29/23 16:31:00 EST, Height/Length [...] Test Name Value Interpretation Reference Range Facility [facility] 02-24-2024 L Specimen: Received: 02/25/24 Status: SOUT Req Num: [id number] Spec Type: Impression Subm Dr: Carmen Calloway MD Tissues: PATHPER Procedures: PATHREVIEW Age/ Patient Sex Location Account Attending Physician Vikas Grimaldo 83/M LABELL [id number] Carmen Calloway MD SPEC NUM: RECD: 02/25/24 [facility] [id number] [place]: 02/24/[address]: Carmen Calloway MD ENTERED: 02/25/[address]: Junito Beasley SPEC TYPE: Impression DEPT: JACOB Mcmahan ENTERED BY: [id number] RECV BY: [id number] ORDERED: PATHREVIEW ORDERED: PATHREVIEW Pathologist Review Abnormal [...] testing with peripheral blood submitted to the [facility] laboratory, and the specialist consultation with machinist first class for appropriate patient management are also advised CPT: 29235 Specimen: [id number] Received: 02/25/24 Status: ASHLEY Cook Num: [id number] Spec Type: Impression Subm Dr: Carmen Calloway MD Tissues: PATHPER Procedures: PATHREVIEW Patient: Vikas Grimaldo [id number] (Continued) Signed (signature on file) Daja Butler MD 02/27/241911 [facility] Consent for Procedure/Surger marc 12-05-2023 Consent for Procedure/Surgery [id number]# 1.00TIFF Normal [facility] Halfway Recordson 12-05 Halfway Records [id number] #1.00TIFF Normal [facility] Ambulatory Visit Summaryon 0 12-04-2023 Ambulatory Visit Summary VIKAS GRIMALDO :1940 Visit Date:12/04/2023 Ambulatory Visit Instructions Your Diagnosis CHENG (iron deficiency anemia) Your Care Team Attending Physician - Rupinder ANAYA, Fernando Ortiz Primary Care Physician - [facility] This Is Your Medications List Contact [...] choosing us for your care. Lily Mancilla [facility] Gastroenterology Office/Clin ic Noteon 12-04-2023 Gastroenterology [...] Low (11/01/23) Chloride: 96 mmol/L Low (11/01/23) [place] Absolute: 1.6 E9/L High (11/01/23) CO2: 23 mmol/L (11/01/23) [place] Auto: 8.2 % (11/01/23) Creatinine: 1.5 mg/dL [...] (less th (more content not included)... Normal [facility] Comment on above: Result Comment: Elec tronically Signed By: Rupinder ANAYA, Fernando Ortiz\.br\Date and Time Signed: 12/04/23 13:01 EST Consent for Treatmenton Consent for Treatment [id number] #1.00TIFF Normal [facility] ONC - Otheron 11-04-2023 ONC - Other [id number] #1.00TIFF Normal [facility] Physician Orderon 11-04-2023 Physician Order [id number] #1.00TIFF Normal [facility] Auto Diffon 11-01-2023 Basophils/100 WBC (Bld) 1.3 % Normal 0.0-2.0 [facility] Comment on above: Order Comment: Order Added by Discern Expert. Performed By: #### 2 580899, 1814074, 3015544, [id number] #### [facility] [address] [place] [address] Basophils/Leukocytes Auto (Bld) [Pure # fraction] 0.2 E9/L Normal 0.0-0.2 [facility] Comment on above: Order Comment: Order Added by Discern Expert. Performed By: #### 2 353560, 9279723, 7035999, 63460566 #### [facility] [address] [place] [address] Eosinophils/100 WBC (Bld) 1.0 % Normal 0.0-8.0 [facility] Comment on above: Order Comment: Order Added by Discern Expert. Performed By: #### 2 430271, 2668267, 9830492, [id number] #### [facility] [address] [place] [address] Eosinophils/Leukocytes Auto (Bld) [Pure # fraction] 0.2 E9/L Normal 0.0-0.5 [facility] Comment on above: Order Comment: Order Added by Discern Expert. Performed By: #### 2 523423, 9665856, 8305427, 48022975 #### [facility] [address] [place] [address] Lymphocytes/100 WBC (Bld) 3.4 % Low 14.0-50.0 [facility] Comment on above: Order Comment: Order Added by Discern Expert. Performed By: #### 2 628244, 2542019, 1833546, 03966080 #### [facility] [address] [place] [address] Lymphocytes/Leukocytes Auto (Bld) [Pure # fraction] 0.7 E9/L Low 1.0-4.0 [facility] Comment on above: Order Comment: Order Added by Discern Expert. Performed By: #### 2 085978, 7653909, 6361505, 16592408 #### [facility] [address] [place] [address] Monocytes/100 WBC (Bld) 8.2 % Normal 4.0-14.0 [facility] Comment on above: Order Comment: Order Added by Discern Expert. Performed By: #### 2 291399, 8940506, 4718936, 11671277 #### [facility] [address] [place] [address] Monocytes/Leukocytes Auto (Bld) [Pure # fraction] 1.6 E9/L High 0.2-1.0 [facility] Comment on above: Order Comment: Order Added by Discern Expert. Performed By: #### 2 915333, 4646883, 7550632, 06686975 #### [facility] [address] [place] [address] Neutrophils/100 WBC (Bld) 86.1 % High 36.0-75.0 [facility] Comment on above: Order Comment: Order Added by Discern Expert. Performed By: #### 2 318838, 0963150, 6638049, 19681349 #### [facility] [address] [place] [address] Neutrophils/Leukocytes Auto (Bld) [Pure # fraction] 16.7 E9/L High 2.0-7.5 [facility] Comment on above: Order Comment: Order Added by Discern Expert. Performed By: #### 2 727424, 8206964, 4424057, 76800909 #### [facility] [address] [place] [address] CBC w/ Auto Diffon Erythrocyte distribution width (RBC) [Ratio] 29.1 % High 10.9-14.2 [facility] Comment on above: Performed By: #### 2 637558, 8859384, 6039347, 37278243 #### [facility] [address] [place] [address] Hematocrit (Bld) [Volume fraction] 56.1 % High 37.7-49.0 [facility] Comment on above: Performed By: #### 2 296656, 7364797, 6638863, 52287490 #### [facility] [address] [place] [address] Hemoglobin (Bld) [Mass/Vol] 17.3 g/dL Normal 13.5-17.5 [facility] Comment on above: Performed By: #### 2 162063, 3376736, 9491105, 00765466 #### [facility] [address] [place] [address] MCH (RBC) [Entitic mass] 21.7 pg Low 27.0-34.0 [facility] Comment on above: Performed By: #### 2 028287, 3672527, 5966216, 24018223 #### [facility] [address] [place] [address] MCHC (RBC) [Mass/Vol] 30.9 g/dL Low 31.4-36.0 [facility] Comment on above: Performed By: #### 2 820109, 9138534, 0282887, 62042473 #### [facility] [address] [place], [place] [address] MCV (RBC) [Entitic vol] 70.3 fL Low 80.0-100.0 [facility] Comment on above: Performed By: #### 2 975228, 3309423, 2832885, 76935652 #### [facility] [address] [place] [address] Platelet mean volume (Bld) [Entitic vol] 9.1 fL Normal 6.4-10.8 [facility] Comment on above: Performed By: #### 2 806138, 1245663, 7454544, 29582192 #### [facility] [address] [place] [address] Platelets (Bld) [#/Vol] 757.0 E9/L High 150.0-500.0 [facility] Comment on above: Performed By: #### 2 347717, 8592192, 2984452, 18016250 #### [facility] [address] [place], [place] [address] RBC (Bld) [#/Vol] 8.0 E12/L High 4.3-5.9 [facility] Comment on above: Performed By: #### 2 683767, 7397164, 6570105, 87163437 #### [facility] [address] [place], [place] [address] WBC corrected for nucl RBC Auto (Bld) [#/Vol] 19.4 E9/L High 4.0-11.0 [facility] Comment on above: Performed By: #### 2 470641, 3331718, 0682238, 26090598 #### [facility] [address] [place] [address] CHEMISTRYOrdered By: SYSTEM SYSTEM on 11-01-2023 Ferritin [...] 11-01-2023 Albumin [Mass/Vol] 4.4 g/dL Normal 3.3-5.0 [facility] Comment on above: Performed By: #### 2 903150, 5645480, 0025941, 44767173 #### [facility] [address] [place] [address] Albumin/Globulin [Mass ratio] 1.5 {ratio} Normal 1.1-2.2 [facility] Comment on above: Performed By: #### 2 702695, 3198561, 0993920, 65181341 #### [facility] [address] [place] [address] Alk Phos 100 Int._Unit/L High 21-98 [facility] Comment on above: Performed By: #### 2 112241, 6488249, 4347335, 43930960 #### [facility] [address] [place] [address] ALT 34 Int._Unit/L Normal 6-46 [facility] Comment on above: Performed By: #### 2 984017, 2000422, 9510498, 84449992 #### [facility] [address] [place] [address] Anion gap [Moles/Vol] 19 mmol/L High 6-16 [facility] Comment on above: Performed By: #### 2 460128, 5047002, 3783971, 25943852 #### [facility] [address] [place] [address] AST 43 Int._Unit/L Normal 5-43 [facility] Comment on above: Performed By: #### 2 398863, 1186724, 4190328, 16038712 #### [facility] [address] [place] [address] Bili Total 0.6 mg/dL Normal 0.0-1.1 [facility] Comment on above: Performed By: #### 2 835218, 8122264, 7903678, 45420031 #### [facility] [address] [place] [address] BUN/Creat Ratio 31 No Units High 10-[address] [facility] Comment on above: Performed By: #### 2 544402, 6629377, 7135981, 87052599 #### [facility] [address] [place] [address] Calcium [Mass/Vol] 9.8 mg/dL Normal 8.9-11.1 [facility] Comment on above: Performed By: #### 2 390573, 5565628, 0918231, 66918266 #### [facility] [address] [place] [address] Chloride [Moles/Vol] 96 mmol/L Low 101-111 [facility] Comment on above: Performed By: #### 2 380759, 4638282, 6164997, 29849495 #### [facility] [address] [place] [address] CO2 [Moles/Vol] 23 mmol/L Normal 21-31 [facility] Comment on above: Performed By: #### 2 037303, 8697332, 9339040, 85914727 #### [facility] [address] [place] [address] Creatinine [Mass/Vol] 1.5 mg/dL High 0.5-1.3 [facility] Comment on above: Performed By: #### 2 268912, 0691761, 5328760, 88217266 #### [facility] [address] [place] [address] Globulin (S) [Mass/Vol] 2.9 g/dL Normal 1.4-4.0 [facility] Comment on above: Performed By: #### 2 875519, 9183818, 3269111, 56871958 #### [facility] [address] [place] [address] Glucose [Mass/Vol] 65 mg/dL Normal 55-199 [facility] Comment on above: Performed By: #### 2 536881, 6044204, 1625107, 34429306 #### [facility] [address] [place] [address] Potassium [Moles/Vol] 5.8 mmol/L High 3.5-5.3 [facility] Comment on above: Performed By: #### 2 405300, 8314042, 9430959, 36857580 #### [facility] [address] [place] [address] Protein [Mass/Vol] 7.3 g/dL Normal 6.0-7.8 [facility] Comment on above: Performed By: #### 2 896285, 1319155, 8295809, 67571177 #### [facility] [address] [place] [address] Sodium [Moles/Vol] 132 mmol/L Low 135-145 [facility] Comment on above: Performed By: #### 2 941379, 2460260, 3269516, 72146132 #### [facility] [address] [place] [address] Urea nitrogen [Mass/Vol] 47 mg/dL High 5-21 [facility] Comment on above: Performed By: #### 2 016882, 8639153, 3786995, 80174624 #### [facility] [address] [place] [address] Consent for Treatmenton 10-05 Consent for Treatment [id number] #1.00TIFF Normal [facility] Ferritinon 11-01-2023 Ferritin Lvl 21 ng/mL Low 24-336 [facility] Comment on above: Performed By: #### 2 249565, 2215833, 7119900, 35019470 #### [facility] [address] [place] [address] HEMATOLOGYOrdered By: SYSTEM SYSTEM on 11-01-2023 Basophils/100 [...] E9/L High 150. 0 - 500.0 E9/L [facility] HemeAutoSS RBC (Bld) [#/Vol] 8.0 E12/L High 4.3 - 5.9 E12/L [facility] HemeAutoSS WBC corrected for nucl RBC Auto (Bld) [#/Vol] 19.4 E9/L High 4.0 - 11.0 E9/L [facility] HemeAutoSS Ironon 11-01-2023 Iron 23 microgram/dL Low 35-153 [facility] Comment on above: Performed By: #### 2 185435, 4550259, 8892689, 64559649 #### [facility] [address] [place] [address] Iron Saturationon 11-01-2023 Iron Sat 6 % Low 20-50 [facility] Comment on above: Performed By: #### 2 549908, 6227050, 7798412, 63405906 #### [facility] [address] [place] [address] TIBC 396 microgram/dL Normal 250-[address] [facility] Comment on above: Performed By: #### 2 290604, 6793775, 8760956, 66830641 #### [facility] [address] [place] [address] Transferrinon 11-01-2023 Transferrin [Mass/Vol] 283 mg/dL Normal 200-370 [facility] Comment on above: Performed By: #### 2 824474, 3675769, 2747625, 48731100 #### [facility] [address] [place] [address] eGFRon 11-01-2023 eGFR 46 mL/min/1.73 m2 Low >=59 [facility] Comment on above: Order Comment: Order added by Discern Expert. Performed By: #### 2 028214, 1391509, 0172928, 98761521 #### [facility] [address] [place] [address] Physician Orderon 10-29-2023 Physician Order [id number] 7#1.00TIFF [facility] Physician Order [id number]#1.00TIFF [facility] Physician Order [id number] #1.00TIFF [facility] Comment on above: Other Comment: no di agnosis Physician Order [id number] 3#1.00TIFF [facility] Comment on above: Other Comment: no di agnosis Consent for Treatmenton 10-04 Consent for Treatment [id number] #1.00TIFF [facility] Interdisciplinary Note - Soc ial Workeron 10-22-2023 Interdisciplinary Note - Heel Seat Fitter This SW was notified that during patient's recent oncology appointment, he had made some comments that were a little off the wall and it was felt that if he were to d/c from [facility] he would be at risk. This SW reached out to the SWKim at [facility] today to discuss patient's discharge plans. Unfortunately, Kim was not available at the time so a message was left requesting that she reach out to this SW to discuss. SW will remain available. This SW received a return call from YONI Alvarez at [facility] regarding patient. She states that patient tends [...] as he requested to only be at [facility] for 20 days. He will be attending OP therapy. No further needs were identified by Kim at this time. [facility] Consenton 10-21-2023 Consent [id number] 8#1.00TIFF [facility] Consent for Treatmenton 10-03 Consent for Treatment [id number] #1.00TIFF Normal [facility] Physician Orderon 10-21-2023 Physician Order [id number] 4#1.00TIFF Normal [facility] Auto Diffon 10-20-2023 Basophils/100 WBC (Bld) 0.9 % Normal 0.0-2.0 [facility] Comment on above: Order Comment: Order added by Discern Expert. Performed By: #### 2 946158, 1216358, 6161741, 47822544 #### [facility] [address] [place] [address] Basophils/Leukocytes Auto (Bld) [Pure # fraction] 0.2 E9/L Normal 0.0-0.2 [facility] Comment on above: Order Comment: Order added by Discern Expert. Performed By: #### 2 115634, 3980363, 5818927, 52751173 #### [facility] [address] [place] [address] Eosinophils/100 WBC (Bld) 2.1 % Normal 0.0-8.0 [facility] Comment on above: Order Comment: Order added by Discern Expert. Performed By: #### 2 720883, 4167096, 1627003, 73752621 #### [facility] [address] [place] [address] Eosinophils/Leukocytes Auto (Bld) [Pure # fraction] 0.5 E9/L Normal 0.0-0.5 [facility] Comment on above: Order Comment: Order added by Discern Expert. Performed By: #### 2 224197, 0426334, 0009565, 49872600 #### [facility] [address] [place] [address] Lymphocytes/100 WBC (Bld) 3.7 % Low 14.0-50.0 [facility] Comment on above: Order Comment: Order added by Discern Expert. Performed By: #### 2 517740, 2346359, 9526761, 84291792 #### [facility] [address] [place] [address] Lymphocytes/Leukocytes Auto (Bld) [Pure # fraction] 0.9 E9/L Low 1.0-4.0 [facility] Comment on above: Order Comment: Order added by Discern Expert. Performed By: #### 2 590340, 4362403, 5576234, 59708726 #### [facility] [address] [place] [address] Monocytes/100 WBC (Bld) 12.2 % Normal 4.0-14.0 [facility] Comment on above: Order Comment: Order added by Discern Expert. Performed By: #### 2 600956, 9977032, 4876967, 28908572 #### [facility] [address] [place] [address] Monocytes/Leukocytes Auto (Bld) [Pure # fraction] 2.9 E9/L High 0.2-1.0 [facility] Comment on above: Order Comment: Order added by Discern Expert. Performed By: #### 2 476498, 3361879, 0637409, 83656246 #### [facility] [address] [place] [address] Neutrophils/100 WBC (Bld) 81.1 % High 36.0-75.0 [facility] Comment on above: Order Comment: Order added by Discern Expert. Performed By: #### 2 615574, 8041001, 3188829, 23599920 #### [facility] [address] [place] [address] Neutrophils/Leukocytes Auto (Bld) [Pure # fraction] 19.1 E9/L High 2.0-7.5 [facility] Comment on above: Order Comment: Order added by Discern Expert. Performed By: #### 2 868346, 4340669, 4317363, 96884134 #### [facility] [address] [place] [address] CBC w/ Auto Diffon 3 Erythrocyte distribution width (RBC) [Ratio] 28.8 % High 10.9-14.2 [facility] Comment on above: Performed By: #### 2 912508, 0918863, 2059133, 63189614 #### [facility] [address] [place] [address] Hematocrit (Bld) [Volume fraction] 52.9 % High 37.7-49.0 [facility] Comment on above: Performed By: #### 2 778875, 9013357, 3034428, 24717133 #### [facility] [address] [place] [address] Hemoglobin (Bld) [Mass/Vol] 16.4 g/dL Normal 13.5-17.5 [facility] Comment on above: Performed By: #### 2 462282, 0474374, 0852167, 11933526 #### [facility] [address] [place] [address] MCH (RBC) [Entitic mass] 21.1 pg Low 27.0-34.0 [facility] Comment on above: Performed By: #### 2 731398, 7507956, 5173223, 42808152 #### [facility] [address] [place] [address] MCHC (RBC) [Mass/Vol] 30.9 g/dL Low 31.4-36.0 [facility] Comment on above: Performed By: #### 2 239032, 4850175, 8664137, 32091609 #### [facility] [address] [place] [address] MCV (RBC) [Entitic vol] 68.2 fL Low 80.0-100.0 [facility] Comment on above: Performed By: #### 2 133423, 5172579, 0840863, 09055793 #### [facility] [address] [place] [address] Platelet mean volume (Bld) [Entitic vol] 8.0 fL Normal 6.4-10.8 [facility] Comment on above: Performed By: #### 2 374566, 9623220, 0354575, 02390620 #### [facility] [address] [place] [address] Platelets (Bld) [#/Vol] 744.0 E9/L High 150.0-500.0 [facility] Comment on above: Performed By: #### 2 681967, 1157311, 7681952, 14757971 #### [facility] [address] [place] [address] RBC (Bld) [#/Vol] 7.8 E12/L High 4.3-5.9 [facility] Comment on above: Performed By: #### 2 497826, 4344418, 6338499, 06434075 #### [facility] [address] [place] [address] WBC corrected for nucl RBC Auto (Bld) [#/Vol] 23.6 E9/L High 4.0-11.0 [facility] Comment on above: Performed By: #### 2 575557, 7570589, 2109873, 97297338 #### [facility] [address] [place] [address] Consent for Treatmenton 10-03 Consent for Treatment [id number] #1.00TIFF Normal [facility] HEMATOLOGYOrdered By: Ada Mahoney on 10-20-2023 Anisocytosis Ql (Bld) Present (10/20/23 3:29 PM) Normal [facility] HemeManSS Erythrocyte distribution width (RBC) [Ratio] 28.8 % High 10.9 - 14.2 % [facility] HemeAutoSS Hematocrit (Bld) [Volume fraction] 52.9 % High 37.7 - 49.0 % FT HemeAutoSS Hemoglobin (Bld) [Mass/Vol] 16.4 g/dL Normal 13.5 - 17.5 gm/dL [facility] HemeAutoSS Hypochromia Auto Ql (Bld) Present (10/20/23 3:29 PM) Normal [facility] HemeManSS MCH (RBC) [Entitic mass] 21.1 pg [...] Insurance Correspondenceon 1 12-21-2022 Insurance Correspondence [id number] #1.00TIFF Normal [facility] Morphon 10-20-2023 Anisocytosis Ql (Bld) Present Normal [facility] Comment on above: Order Comment: Order added by Discern Expert. Performed By: #### 2 300054, 6103804, 1332740, 36290262 #### [facility] [address] [place] [address] Hypochromia Auto Ql (Bld) Present Normal [facility] Comment on above: Order Comment: Order added by Discern Expert. Performed By: #### 2 442466, 7501174, 2548658, 98940784 #### [facility] [address] [place] [address] Microcytes Ql (Bld) Present Normal [facility] Comment on above: Order Comment: Order added by Discern Expert. Performed By: #### 2 436923, 3563772, 9257954, 87471097 #### [facility] [address] [place] [address] Morphology Panfilo (Bld) [Interp] See Morphology Normal [facility] Comment on above: Order Comment: Order added by Discern Expert. Result Comment: Resu lts are consistent with previous path review performed on 09-30-23. Reviewed by ELMER. Performed By: #### 2 749325, 8470348, 8144474, 11013038 #### [facility] [address] [facility] [place] [address] Ovalocytes LM Ql (Bld) Present Normal [facility] - [place] Comment on above: Order Comment: Order added by Discern Expert. Performed By: #### 2 819473, 0803304, 3553760, [id number] #### [facility] [address] [facility] [place] [address] Platelets Large LM Ql (Bld) Present Normal [facility] Comment on above: Order Comment: Order added by Discern Expert. Performed By: #### 2 694248, 1284576, 8496631, 87868952 #### [facility] [address] [facility] [place] [address] Oncology Noteon 10-20-2023 Oncology Note Oncology Secondary Education Professor Office Visit/Treatment Note I accompanied Dr. Pyle [...] his son. Patient denied further questions. Normal [facility] Comment on above: Result Comment: Elec tronically [...] Illness 82-year-old male who was sent to [facility] ER by Dr. Quinteros with concerns regarding [...] Soto RN (more content not included)... Normal [facility] Auto Diffon 10-17-2023 Basophils/100 WBC (Bld) 0.4 % Normal 0.0-2.0 [facility] Comment on above: Order Comment: Order Added by Discern Expert. Performed By: #### 2 449455, 9679934, 1064409, 49192072 #### [facility] [address] [place] [address] Basophils/Leukocytes Auto (Bld) [Pure # fraction] 0.1 E9/L Normal 0.0-0.2 [facility] Comment on above: Order Comment: Order Added by Discern Expert. Performed By: #### 2 765058, 6339063, 0158956, 16576918 #### [facility] [address] [place] [address] Eosinophils/100 WBC (Bld) 1.7 % Normal 0.0-8.0 [facility] Comment on above: Order Comment: Order Added by Discern Expert. Performed By: #### 2 234775, 9187383, 3792148, 67425883 #### [facility] [address] [place] [address] Eosinophils/Leukocytes Auto (Bld) [Pure # fraction] 0.4 E9/L Normal 0.0-0.5 [facility] Comment on above: Order Comment: Order Added by Discern Expert. Performed By: #### 2 893317, 6394563, 4909423, 88241080 #### [facility] [address] [place] [address] Lymphocytes/100 WBC (Bld) 3.0 % Low 14.0-50.0 [facility] Comment on above: Order Comment: Order Added by Discern Expert. Performed By: #### 2 092595, 8797589, 1440099, 72110163 #### [facility] [address] [place] [address] Lymphocytes/Leukocytes Auto (Bld) [Pure # fraction] 0.7 E9/L Low 1.0-4.0 [facility] Comment on above: Order Comment: Order Added by Discern Expert. Performed By: #### 2 789075, 9302197, 5648710, 91878968 #### [facility] [address] [place] [address] Monocytes/100 WBC (Bld) 11.6 % Normal 4.0-14.0 [facility] Comment on above: Order Comment: Order Added by Discern Expert. Performed By: #### 2 436644, 6270025, 7160195, 36926070 #### [facility] [address] [place] [address] Monocytes/Leukocytes Auto (Bld) [Pure # fraction] 2.6 E9/L High 0.2-1.0 [facility] Comment on above: Order Comment: Order Added by Discern Expert. Performed By: #### 2 423903, 1145514, 0114913, 44263868 #### [facility] [address] [place] [address] Neutrophils/100 WBC (Bld) 83.3 % High 36.0-75.0 [facility] Comment on above: Order Comment: Order Added by Discern Expert. Performed By: #### 2 951908, 5290831, 1394641, 44985637 #### [facility] [address] [place] [address] Neutrophils/Leukocytes Auto (Bld) [Pure # fraction] 18.7 E9/L High 2.0-7.5 [facility] Comment on above: Order Comment: Order Added by Discern Expert. Performed By: #### 2 956485, 5132038, 0925245, 55836753 #### [facility] [address] [place] [address] CBC w/ Auto Diffon 3 Erythrocyte distribution width (RBC) [Ratio] 28.1 % High 10.9-14.2 [facility] Comment on above: Performed By: #### 1 7395514, 6075114, 6117953, 9193653, 1757863, 42057725, 5777152, 9272857, 1747494 ####[facility] [address] [place] [address] Hematocrit (Bld) [Volume fraction] 50.5 % High 37.7-49.0 [facility] Comment on above: Performed By: #### 1 0931900, 7349414, 1979902, 0614581, 2670367, 70692447, 6410946, 5303352, 9120710 ####[facility] [address] [place] [address] Hemoglobin (Bld) [Mass/Vol] 15.6 g/dL Normal 13.5-17.5 [facility] Comment on above: Performed By: #### 1 8822411, 6591373, 9886752, 7984902, 9942592, 23671876, 1115211, 3938455, 2561579 ####[facility] [address] [place] [address] MCH (RBC) [Entitic mass] 20.9 pg Low 27.0-34.0 [facility] Comment on above: Performed By: #### 1 9885420, 7898279, 0015074, 6950994, 4701663, 99475492, 0077824, 0236170, 6584423 ####[address] [place] [address] MCHC (RBC) [Mass/Vol] 30.9 g/dL Low 31.4-36.0 [facility] Comment on above: Performed By: #### 1 3527779, 8869277, 2917993, 1921008, 6281730, 14228357, 6292255, 1751065, 5644156 ####[facility] [address] [place] [address] MCV (RBC) [Entitic vol] 67.9 fL Low 80.0-100.0 [facility] Comment on above: Performed By: #### 1 1900156, 8921757, 0179538, 3282929, 2628616, 64308412, 3510723, 3948033, 0613668 ####[facility] [address] [place] [address] Platelet mean volume (Bld) [Entitic vol] 8.0 fL Normal 6.4-10.8 [facility] Comment on above: Performed By: #### 1 9883808, 7021653, 7392783, 3880503, 6109966, 00831503, 7957133, 2275846, 3711035 ####[address] [address] Platelets (Bld) [#/Vol] 576.0 E9/L High 150.0-500.0 [facility] Comment on above: Performed By: #### 1 2305952, 7611048, 8459859, 4913456, 7451800, 72457700, 4786415, 6045308, 7267594 ####[address] [address] RBC (Bld) [#/Vol] 7.4 E12/L High 4.3-5.9 [facility] Comment on above: Performed By: #### 1 6961569, 3317171, 5125545, 1593547, 3322644, 87202588, 5315934, 8592205, 8431470 ####[address] [address] WBC corrected for nucl RBC Auto (Bld) [#/Vol] 22.4 E9/L High 4.0-11.0 [facility] Comment on above: Performed By: #### 1 3776348, 8073430, 4806392, 8531321, 6226669, 45249829, 3520291, 9776025, 6564845 ####[address] [address] CMPon 10-17-2023 Albumin [Mass/Vol] 4.0 g/dL Normal 3.3-5.0 [facility] Comment on above: Performed By: #### 1 1861763, 1772022, 9341926, 7309177, 4531154, 03814339, 2622292, 3008756, 9865895 ####[facility] [address] [place] [address] Albumin/Globulin [Mass ratio] 1.3 {ratio} Normal 1.1-2.2 [facility] Comment on above: Performed By: #### 1 4715221, 8457845, 3814856, 3328387, 6767876, 85996185, 8571001, 7118299, 7386401 ####[facility] [address] [place] [address] Alk Phos 89 Int._Unit/L Normal 21-98 [facility] Comment on above: Performed By: #### 1 4047728, 1800382, 3501276, 4706629, 3819921, 77857942, 8365431, 4550576, 3512422 ####[address] [address] ALT 18 Int._Unit/L Normal 6-46 [facility] Comment on above: Performed By: #### 1 6756379, 0631345, 9930768, 5730913, 9485183, 78918261, 7367180, 8462622, 7262086 ####[address] [place] [address] Anion gap [Moles/Vol] 13 mmol/L Normal 6-16 [facility] Comment on above: Performed By: #### 1 6116494, 3501185, 9658644, 2922032, 1430287, 45568714, 0881028, 4123751, 2872193 ####[address] [place] [address] AST 23 Int._Unit/L Normal 5-43 [facility] Comment on above: Performed By: #### 1 9992046, 0994945, 0859411, 5671511, 0899411, 95638747, 4835134, 9589806, 1750171 ####[facility] [address] [place] [address] Bili Total 0.4 mg/dL Normal 0.0-1.1 [facility] Comment on above: Performed By: #### 1 6018630, 3427096, 9850356, 6431842, 0394970, 34013085, 9231476, 2773782, 9798772 ####[facility] [address] [place] [address] BUN/Creat Ratio 21 No Units High 10-[address] [facility] Comment on above: Performed By: #### 1 4635910, 5542261, 4109417, 7835499, 4749008, 90421526, 6653670, 1682920, 1668400 ####[facility] [address] [place] [address] Calcium [Mass/Vol] 9.8 mg/dL Normal 8.9-11.1 [facility] Comment on above: Performed By: #### 1 9670057, 6897180, 1553928, 2216028, 3600479, 82188908, 1094132, 9951491, 5867213 ####[facility] [address] [place] [address] Chloride [Moles/Vol] 99 mmol/L Low 101-111 [facility] Comment on above: Performed By: #### 1 6562029, 2477862, 4848417, 0826312, 2138189, 26224305, 2738727, 4666253, 0730922 ####[facility] [address] [place] [address] CO2 [Moles/Vol] 29 mmol/L Normal 21-31 [facility] Comment on above: Performed By: #### 1 7892479, 0569994, 2498470, 3362846, 9756327, 97300044, 5563737, 1131646, 0239587 ####[facility] [address] [place] [address] Creatinine [Mass/Vol] 1.7 mg/dL High 0.5-1.3 [facility] Comment on above: Performed By: #### 1 4066199, 7921709, 8104026, 4745185, 6814625, 66137855, 4461771, 0032388, 1511365 ####[facility] [address] [place] [address] Globulin (S) [Mass/Vol] 3.1 g/dL Normal 1.4-4.0 [facility] Comment on above: Performed By: #### 1 3674963, 2255289, 6246998, 3911720, 8289224, 26487375, 6565808, 8290324, 7477017 ####[facility] [address] [place] [address] Glucose [Mass/Vol] 114 mg/dL Normal 55-199 [facility] Comment on above: Performed By: #### 1 3503199, 5882741, 9611055, 7943282, 2809267, 91011004, 3025527, 9030076, 5591800 ####[facility] [address] [place] [address] Potassium [Moles/Vol] 4.3 mmol/L Normal 3.5-5.3 [facility] Comment on above: Performed By: #### 1 1333943, 3825626, 8598580, 0424754, 0028360, 26161222, 0044008, 8917523, 3783481 ####[facility] [address] [place] [address] Protein [Mass/Vol] 7.1 g/dL Normal 6.0-7.8 [facility] Comment on above: Performed By: #### 1 3631786, 9246481, 5207304, 1951729, 5824964, 90345432, 2341634, 5178431, 4781559 ####[facility] [address] [place] [address] Sodium [Moles/Vol] 137 mmol/L Normal 135-145 [facility] Comment on above: Performed By: #### 1 1921245, 5037601, 8775810, 1845565, 7636289, 06190055, 8134396, 5260632, 7699942 ####[facility] [address] [place] [address] Urea nitrogen [Mass/Vol] 35 mg/dL High 5-21 [facility] Comment on above: Performed By: #### 1 4280353, 9851443, 3006428, 6597301, 9841729, 92646004, 1931277, 7418958, 3092022 ####[facility] [address] [place] [address] Consent for Treatmenton 10-03 Consent for Treatment [id number] #1.00TIFF Normal [facility] Ferritinon 10-17-2023 Ferritin Lvl 73 ng/mL Normal 24-336 [facility] Comment on above: Performed By: #### 1 6932526, 9094460, 1746204, 8222821, 8360125, 97326288, 9964412, 7447804, 9623524 ####[facility] [address] [place] [address] Ironon 10-17-2023 Iron 36 microgram/dL Normal 35-153 [facility] Comment on above: Performed By: #### 2 403091, 0482383, 6338747, 38131072 #### [facility] [address] [place] [address] Iron Saturationon 10-17-2023 Iron Sat 9 % Low 20-50 [facility] Comment on above: Performed By: #### 2 285939, 6634022, 8211240, 42663006 #### [facility] [address] [place] [address] TIBC 393 microgram/dL Normal 250-[address] [facility] Comment on above: Performed By: #### 2 985623, 9939289, 1155633, 36425068 #### [facility] [address] [place] [address] Morphon 10-17-2023 Anisocytosis Ql (Bld) Present Normal Fis [facility] Comment on above: Order Comment: Order Added by Discern Expert. Performed By: #### 1 8671280, 9861187, 8479130, 3885341, 6933921, 85288471, 4584363, 0359058, 7293957 ####[facility] [address] [place] [address] Hypochromia Auto Ql (Bld) Present Normal [facility] Comment on above: Order Comment: Order Added by Discern Expert. Performed By: #### 1 8971040, 0614217, 2615866, 7825176, 0934570, 79707991, 2524717, 1658620, 4582933 ####[facility] [address] [place] [address] Microcytes Ql (Bld) Present [facility] Comment on above: Order Comment: Order Added by Discern Expert. Performed By: #### 1 3304727, 5507419, 4664878, 5371778, 7787487, 88085911, 2164227, 3930111, 0638713 ####[facility] [address] [place] [address] Morphology Panfilo (Bld) [Interp] See Morphology Normal [facility] Comment on above: Order Comment: Order Added by Discern Expert. Performed By: #### 1 1042228, 3157459, 5025374, 9267864, 4199067, 17855924, 0600666, 7903267, 3835154 ####[facility] [address] [place] [address] Platelets Large LM Ql (Bld) Present Normal [facility] Comment on above: Order Comment: Order Added by Discern Expert. Performed By: #### 1 2166707, 0746862, 3706325, 4807924, 2429931, 92741051, 7343604, 6136852, 4705044 ####[facility] [address] [place] [address] Polychromasia LM Ql (Bld) Present Normal [facility] Comment on above: Order Comment: Order Added by Discern Expert. Performed By: #### 1 0119476, 4683234, 8527404, 8463290, 9898475, 58455820, 1741479, 1559928, 6227079 ####[facility] [address] [place] [address] Transferrinon 10-17-2023 Transferrin [Mass/Vol] 281 mg/dL Normal 200-370 [facility] Comment on above: Performed By: #### 2 009330, 8513153, 9042921, 03397080 #### [facility] [address] [place] [address] eGFRon 10-17-2023 eGFR 40 mL/min/1.73 m2 Low >=59 [facility] Comment on above: Order Comment: Order added by Discern Expert. Performed By: #### 2 337965, 3347039, 0977355, 39769687 #### [facility] [address] [place] [address] Lab Miscellaneous-LCon 10-13 Lab Miscellaneous See Ref Report Invalid Interpretation Code [facility] Comment on above: Order Comment: test codes:89508 & 4705249 lav tubes Result Comment: Perf ormed at: [address] [id number] PhD Melisa Marc See scanned report Performed at: [address] [id number] PhD Melisa Marc Performed By: #### 1 [id number] ####[facility] [address] [place] [address] Reference Lab Reporton 10-13 Reference Lab Report [id number] 0#1.00TIFF Normal [facility] IntraOperative Documentson 1 12-07-2022 IntraOperative Documents [id number] #1.00TIFF Normal [facility] Progress Note-Physicianon Progress Note-Physician Patient: VIKAS GRIMALDO Age: 82 years Sex: Male : 1940 Associated Diagnoses: None Author: MD Almodovar Ahmad F Postoperative Information Postoperative disposition: Postoperative disposition: To PACU. Optimetrix number: Optimetrix number [id number]. Anesthetic utilized: General. Health Status Allergies: Allergic [...] meets criteria ( To home ). Normal [facility] Comment on above: Result Comment: Elec tronically [...] 14 day(s), 28 tab(s), Refill(s) 0, [facility], 167, cm, 09/29/23 16:31:00 EST, Height/Length Dosing, 62, kg, 09/29/23 16:31:00 EST, Weight Dosing NIFEdipine 60 mg ER Tab: 60 mg = 1 tab(s), Oral, Daily, # 30 tab(s), Refills(s) 0, Pharmacy: [facility], 167, cm, 09/29/23 16:31:00 EST, Height/Length Dosing, 62, kg, 09/29/23 16:31:00 EST, Weight Dosing chlorthalidone 25 mg Tab: 25 mg = 1 tab(s), Oral, Daily, # 30 tab(s), Refills(s) 0, Pharmacy: [facility], 167, cm, 09/29/23 16:31:00 EST, Height/Length Dosing, 62, kg, 09/29/23 16:31:00 EST, Weight Dosing ferrous sulfate 325 mg Tab: 325 mg = 1 tab(s), Oral, Every other day, # 30 tab(s), Refills(s) 0, Pharmacy: [facility], 167, cm, 09/29/23 16:31:00 EST, Height/Length [...] results Radiology results ECG interpretation Condition Plan [place] [employer] (ASA) physical status classification: Class III. Anesthetic Preoperative Plan Anesthesia: General. . Anesthetic plan, risks, benefits, and alternatives discussed with the patient and/or family. Risks discussed: nausea, vomiting, headache, sore throat, dental injury, serious complications. Patient verbalized understanding. Communication: face to face with patient 5 minutes. Normal [facility] Comment on above: Result Comment: Elec tronically Signed By: MD Scooby, Raiza Norris\.br\Date and Time Signed: 10/04/23 18:10 EST Auto Diffon 10-03-2023 Basophils/100 WBC (Bld) 1.7 % Normal 0.0-2.0 [facility] Comment on above: Order Comment: Order Added by Discern Expert. Performed By: #### 2 860156, 41707246, 9778254, 41961389, 163917399, 0206068, 71971650 #### [facility] [address] [place] [address] Basophils/Leukocytes Auto (Bld) [Pure # fraction] 0.4 E9/L High 0.0-0.2 [facility] Comment on above: Order Comment: Order Added by Discern Expert. Performed By: #### 2 745643, 24754974, 7967935, 98239168, 150750920, 0091718, 93331040 #### [facility] [address] [place] [address] Eosinophils/100 WBC (Bld) 1.1 % Normal 0.0-8.0 [facility] Comment on above: Order Comment: Order Added by Discern Expert. Performed By: #### 2 646530, 53384244, 4085600, 89677995, 125308323, 8556332, 05944041 #### [facility] [address] [place] [address] Eosinophils/Leukocytes Auto (Bld) [Pure # fraction] 0.2 E9/L Normal 0.0-0.5 [facility] Comment on above: Order Comment: Order Added by Discern Expert. Performed By: #### 2 169668, 75723500, 1025838, 46462520, 754709449, 7393702, 62050546 #### [facility] [address] [place] [address] Lymphocytes/100 WBC (Bld) 3.0 % Low 14.0-50.0 [facility] Comment on above: Order Comment: Order Added by Discern Expert. Performed By: #### 2 115802, 16685467, 9746702, 33499564, 380126321, 8909246, 01972590 #### [facility] [address] [place] [address] Lymphocytes/Leukocytes Auto (Bld) [Pure # fraction] 0.7 E9/L Low 1.0-4.0 [facility] Comment on above: Order Comment: Order Added by Discern Expert. Performed By: #### 2 567256, 48955481, 2882140, 12480831, 180623856, 0295314, 46261681 #### [facility] [address] [place] [address] Monocytes/100 WBC (Bld) 13.4 % Normal 4.0-14.0 [facility] Comment on above: Order Comment: Order Added by Discern Expert. Performed By: #### 2 034349, 88441324, 8388808, 73604099, 834805064, 2961443, 50958715 #### [facility] [address] [place] [address] Monocytes/Leukocytes Auto (Bld) [Pure # fraction] 2.9 E9/L High 0.2-1.0 [facility] Comment on above: Order Comment: Order Added by Discern Expert. Performed By: #### 2 657769, 67408439, 7995144, 66658310, 796326924, 7083037, 84000237 #### [facility] [address] [place] [address] Neutrophils/100 WBC (Bld) 80.8 % High 36.0-75.0 [facility] Comment on above: Order Comment: Order Added by Discern Expert. Performed By: #### 2 155678, 54522750, 0809105, 11818399, 292956683, 9340890, 03250066 #### [facility] [address] [place] [address] Neutrophils/Leukocytes Auto (Bld) [Pure # fraction] 17.8 E9/L High 2.0-7.5 [facility] Comment on above: Order Comment: Order Added by Discern Expert. Performed By: #### 2 854967, 82212874, 8989430, 08715604, 222425932, 2158737, 46875947 #### [facility] [address] [place] [address] BMPon 10-03-2023 Anion gap [Moles/Vol] 10 mmol/L Normal 6-16 [facility] Comment on above: Performed By: #### 2 226641, 2850283, 8324400, 37927810 #### [facility] [address] [place] [address] Calcium [Mass/Vol] 8.6 mg/dL Low 8.9-11.1 [facility] Comment on above: Performed By: #### 2 726400, 9789222, 0169320, 97092669 #### [facility] [address] [place] [address] Chloride [Moles/Vol] 111 mmol/L Normal 101-111 [facility] Comment on above: Performed By: #### 2 244397, 8044372, 1322215, 27489311 #### [facility] [address] [place] [address] CO2 [Moles/Vol] 23 mmol/L Normal 21-31 [facility] Comment on above: Performed By: #### 2 861726, 0641357, 5260070, 09804282 #### [facility] [address] [place] [address] Creatinine [Mass/Vol] 1.3 mg/dL Normal 0.5-1.3 [facility] Comment on above: Performed By: #### 2 475180, 8280574, 0912935, 43604416 #### [facility] [address] [place] [address] Glucose [Mass/Vol] 88 mg/dL Normal 55-199 [facility] Comment on above: Result Comment: If t his glucose result represents a fasting glucose, interpretation should refer to the following reference range: 55-99 mg/dL Performed By: #### 2 018536, 0610931, 9273577, 79479764 #### [facility] [address] [place] [address] Potassium [Moles/Vol] 3.8 mmol/L Normal 3.5-5.3 [facility] Comment on above: Performed By: #### 2 200386, 5312112, 2601802, 79195435 #### [facility] [address] [place] [address] Sodium [Moles/Vol] 140 mmol/L Normal 135-145 [facility] Comment on above: Performed By: #### 2 283220, 7289259, 2251331, 73245287 #### [facility] [address] [place] [address] Urea nitrogen [Mass/Vol] 26 mg/dL High 5-21 [facility] Comment on above: Performed By: #### 2 618995, 8714284, 5256911, 31956025 #### [facility] [address] [place] [address] Urea nitrogen/Creatinine [Mass ratio] 20 No Units Normal 10-20 [facility] Comment on above: Performed By: #### 2 303403, 6513518, 8814292, 92708065 #### [facility] [address] [place] [address] BNPon 10-03-2023 Natriuretic peptide B (Bld) [Mass/Vol] 186 pg/mL High 5-80 [facility] Comment on above: Performed By: #### 2 537918, 19517344, 1751824, 70902501, 321243333, 8859829, 17961423 #### [facility] [address] [place] [address] CBC w/ Auto Diffon Erythrocyte distribution width (RBC) [Ratio] 21.3 % High 10.9-14.2 [facility] Comment on above: Performed By: #### 2 172199, 98829339, 7893798, 36121437, 026275134, 5275084, 09161951 #### [facility] [address] [place] [address] Hematocrit (Bld) [Volume fraction] 40.9 % Normal 37.7-49.0 [facility] Comment on above: Performed By: #### 2 112131, 85195785, 9854865, 85486742, 424197309, 2223278, 24332668 #### [facility] [address] [place] [address] Hemoglobin (Bld) [Mass/Vol] 12.5 g/dL Low 13.5-17.5 [facility] Comment on above: Performed By: #### 2 169619, 63659299, 5565147, 96551431, 370783377, 7249714, 14301037 #### [facility] [address] [place] [address] MCH (RBC) [Entitic mass] 19.4 pg Low 27.0-34.0 [facility] Comment on above: Performed By: #### 2 441809, 93665047, 4053945, 36262996, 392423400, 6227641, 69369846 #### [facility] [address] [place] [address] MCHC (RBC) [Mass/Vol] 30.5 g/dL Low 31.4-36.0 [facility] Comment on above: Performed By: #### 2 747014, 31154711, 6909874, 34657858, 592713146, 3546319, 68870022 #### [facility] [address] [place] [address] MCV (RBC) [Entitic vol] 63.6 fL Low 80.0-100.0 [facility] Comment on above: Performed By: #### 2 500893, 80086642, 3673004, 72915883, 933539307, 3973749, 46984433 #### [facility] [address] [place] [address] Platelet mean volume (Bld) [Entitic vol] 7.8 fL Normal 6.4-10.8 [facility] Comment on above: Performed By: #### 2 284964, 34553424, 9043526, 94940473, 328370150, 7470960, 67155634 #### [facility] [address] [place] [id number] Platelets (Bld) [#/Vol] 172.0 E9/L Normal 150.0-500.0 [facility] Comment on above: Performed By: #### 2 605807, [id number], 1464312, 33991258, [id number], 5823130, [id number] #### [facility] [address] [place] [address] RBC (Bld) [#/Vol] 6.4 E12/L High 4.3-5.9 [facility] Comment on above: Performed By: #### 2 211121, [id number], 8660539, 24891548, [id number], 2984283, 86281804 #### [facility] [address] [place] [address] WBC corrected for nucl RBC Auto (Bld) [#/Vol] 22.0 E9/L High 4.0-11.0 [facility] Comment on above: Performed By: #### 2 107911, 88008997, 1628786, 40836164, [id number], 3633835, 02716819 #### [facility] [address] [place] [address] CHEMISTRYOrdered By: SYSTEM SYSTEM on 10-03-2023 Anion [...] 56 mL/min/1.73 m2 Low >=59mL/min/1 .73 m2 [facility] Chem S Comment on above: Interpretive Data: [...] mg/dL High 5 - 21 mg/d L [facility] Remisol Urea nitrogen/Creatinine [Mass ratio] 20 mg/mg Normal 10 - 20 [facility] Remisol CHEMISTRYOrdered By: Agatha Kim on 10-03-2023 Natriuretic peptide B (Bld) [Mass/Vol] 186 pg/mL High 5 - 80 pg/mL [facility] HemeManSS Coding Queryon 10-03-2023 Coding Query - From: Kerwin Small RN To: Raiza Ta MD; Sent: 10/03/2023 14:48:37 EST ! Subject: Coding Query Due Date/Time: 10/04/2023 14:48:00 EST Caller Name: VIKAS GRIMALDO; Caller Number: H Documentation per a cloud consultant in the medical record indicates this [...] tract calculi or hydronephrosis. -No need for HAT DESIGNER at this time. May reduce NS to 75cc/hr. Nonoliguric Based on your medical judgment of the documented diagnoses by the cloud consultant, do you agree with the diagnosis? [___]Yes, I agree with the diagnosis documented by the cloud consultant. [___]No, I do not agree with the diagnosis documented by the cloud consultant. Reason: [___]Other: In responding to this [...] agree with the diagnosis documented by the cloud consultant. Normal [place] Discharge Note-Nursingon Discharge Note-Nursing VIKAS GRIMALDO [...] Snowden When: Comments: Establish care Where: [address] [place] [phone] Business (1) Follow Up with Orlando Pyle When: Comments: Thrombocytosis Follow Up with Fernando Bucio When: Comments: CHENG Where: [address], [address] [facility] [address] [place] [phone] Business (1) Follow Up with Manav Cervantes When: Comments: CKD Where: [facility] [address] [place] [address]- Business (1) Follow Up with [facility] When: Follow Up with Vinod Quinteros When: Within 5 to 7 days Where: [facility] [address] [place] [address] 0 Business (1) Medications What How Much When Instructions Next Dose New amoxicillin-clavulan ate (Augmentin 875 mg-125 mg Tab) 1 Tablets By Mouth Every 12 hours Duration: 14 Days Pickup at [email or web address] start New chlorthalidone (chlorthalidone 25 mg Tab) 1 Tablets By Mouth Every day Pickup at [email or web address] start New ferrous sulfate (ferrous sulfate 325 mg Tab) 1 Tablets By Mouth Every other day Pickup at [email or web address] start New NIFEdipine (NIFEdipine 60 mg ER Tab) 1 Tablets By Mouth Every day Pickup at [email or web address] start Unchanged aspirin (aspirin 81 mg Oral EC Tab) 1 Tablets By Mouth Every day resume Unchanged multivitamin 1 tab By Mouth Every day resume Pharmacy Information [email or web address]: [address] [place], [place] [phone] Test Results CBC BMP WBC: 22 E9/L [...] 06:46:00) Allergies No Known Allergies Education Materials [place], [place] Vinod Quinteros DPM, FACFAS POST OPERATIVE [...] in swe (more content not included)... Normal [facility] HEMATOLOGYOrdered By: Agatha Kim on 10-03-2023 Anisocytosis Ql (Bld) Present (10/03/23 6:46 AM) Normal [facility] HemeManSS Erythrocyte distribution width (RBC) [Ratio] 21.3 % High 10.9 - 14.2 % [facility] HemeAutoSS Hematocrit (Bld) [Volume fraction] 40.9 % Normal 37.7 - 49.0 % [facility] HemeAutoSS Hemoglobin (Bld) [Mass/Vol] 12.5 g/dL Low 13.5 - 17.5 gm/dL [facility] HemeAutoSS Hypochromia Auto Ql (Bld) Present (10/03/23 [...] Inpatient Clinical Summaryon 10-03-2023 Inpatient Clinical Summary [address] [address] Clinical Summary Person Information: Name: VIKAS GRIMALDO Age: 82 Years : 1940 Sex: Male PCP: JUSTIN CARUSO Marital Status: Single Race: White Ethnicity: Non- or Language: Palauan Visit Id: Visit Reason: Wound infection - complicated; LEFT FT - SENT BY [facility] Speciality: Acuity: Enc Type: Inpatient Med Service: Medical Arrival: 09/29/2023 16:15:49 Discharge: Dispo Type: [facility] Address: [address] [place] [address] [place] [phone] Provider Notes: Diagnosis: 1:Abscess of left foot [...] up: With: Address: When: Luis Snowden [address] [phone] Business (1) Comments: Establish care With: Address: When: Orlando Pyle Comments: Thrombocytosis With: Address: When: Fernando Yungwilman [address] [facility], [address], [facility] 3 [place] [phone] Business (1) Comments: CHENG With: Address: When: Manav Cervantes [facility], [address] [place] [address] Business (1) Comments: CKD With: Address: When: [facility] With: Address: When: [facility], [address] [facility], [facility], [place] [address] 0 Business (1) Within 5 to 7 days Type Location Start Finish State ONC Office Visit 30 (FT) Secured Location 10/14/2023 3:00 PM 10/14/2023 3:30 PM Confirmed Patient Education Information: Flor - Post Operative Instructions (Revised 06/30/14) (Custom) Normal [facility] Inpatient Patient Summaryon 10-03-2023 Inpatient Patient Summary [facility] [address] [place], [place] [address] Patient Discharge Instructions PERSON INFORMATION Name: VIKAS [...] up: With: Address: When: Luis Snowden [address] [id number] [phone] Business (1) Comments: Establish care With: Address: When: Orlando Pyle Comments: Thrombocytosis With: Address: When: Fernando Bucio [address], [address], [facility] 3 [place] [phone] Business (1) Comments: CHENG With: Address: When: Manav [facility], [address] [place] [address] Business (1) Comments: CKD With: Address: When: [facility] With: Address: When: Vinod DOE - [facility], [facility], [address], [place] [address] 0 Business (1) Within 5 to 7 days In the event that this physician does not participate in your insurance network, please consult with your insurance company to find a nearby participating provider. Type Location Start [facility] ONC Office Visit 30 (FT) Secured Location 10/14/2023 3:00 PM 10/14/2023 3:30 PM Confirmed Comment: DILLAN Chau WAYNE R, have received the attached patient education materials/instructio ns and have verbalized understanding: Patient Signature Date Clinican/Nurse Signature Date HERE ARE THE MEDICATION CHANGES THAT OCCURRED DURING YOUR HOSPITAL STAY New Medications [facility], [address] [place] [id number], [phone] amoxicillin-clavulan ate (Augmentin 875 mg-125 mg Tab) [...] Pharmacy Information: Comment: PATIENT EDUCATION INFORMATION Instructions: [place], [place] Vinod Quinteros DPM, FACFAS POST OPERATIVE [...] calf pa (more content not included)... Normal [facility] Interdisciplinary Note - Kaveh e Manageron 10-03-2023 Interdisciplinary Note - Sock Liner Pending wound cxs. [facility] accepts and will cover dwight [place]. 3MN 10/02. May need IV atx. CRM to follow. Pt will not need IV atx. PLan to dc to [facility] today via cleo. Normal [facility] Comment on above: Result Comment: Elec tronically Signed By: Agatha Brady\Date and Time Signed: 10/03/23 12:17 EST Magnesiumon 10-03-2023 Magnesium [Mass/Vol] 2.0 mg/dL Normal 1.3-2.4 [facility] Comment on above: Performed By: #### 2 032477, 2336812, 6011805, [id number] #### [facility] [address] [place] [address] Morphon 10-03-2023 Anisocytosis Ql (Bld) Present Normal [facility] Comment on above: Order Comment: Order Added by Discern Expert. Performed By: #### 2 317162, 64870644, 7504140, 33752316, 647613991, 7402086, 15662733 #### [facility] [address] [place] [address] Hypochromia Auto Ql (Bld) Present Normal [facility] Comment on above: Order Comment: Order Added by Discern Expert. Performed By: #### 2 143683, 80823010, 1843566, 80129721, 670770235, 9181670, 98955728 #### [facility] [address] [place] [address] Microcytes Ql (Bld) Present Normal [facility] Comment on above: Order Comment: Order Added by Discern Expert. Performed By: #### 2 702036, 45636001, 3689732, 80370774, 782956917, 1077471, 48403327 #### [facility] [address] [place] [address] Morphology Panfilo (Bld) [Interp] See Morphology Normal [facility] Comment on above: Order Comment: Order Added by Discern Expert. Performed By: #### 2 921185, 93966030, 2364899, 35380759, 541349737, 2633354, 32866823 #### [facility] [address] [place] [address] Ovalocytes LM Ql (Bld) Present Normal [facility] Comment on above: Order Comment: Order Added by Discern Expert. Performed By: #### 2 441204, 17385493, 1287162, 62139817, 728472758, 1583167, 64186041 #### [facility] [address] [place] [address] Platelets Large LM Ql (Bld) Present Normal [facility] Comment on above: Order Comment: Order Added by Discern Expert. Performed By: #### 2 721100, 38046671, 5988701, 19894891, 105236348, 7360210, 21744191 #### [facility] [address] [place] [address] Polychromasia LM Ql (Bld) Present Normal [facility] Comment on above: Order Comment: Order Added by Discern Expert. Performed By: #### 2 146698, 42074575, 3936292, 87278759, 831688131, 4850807, 26440039 #### [facility] [address] [place] [address] Progress Note-Physicianon Progress Note-Physician Patient: VIKAS GRIMALDO Age: 82 years Sex: Male : 1940 Associated Diagnoses: None Author: Helen ANAYA, [facility] Interval History No events overnight. Doing [...] for 14 day(s), 28 tab(s), Refill(s) 0, [facility], 167, cm, 09/29/23 16:31:00 EST, Height/Length Dosing, 62, kg, 09/29/23 16:31:00 EST, Weight Dosing NIFEdipine 60 mg ER Tab: 60 mg = 1 tab(s), Oral, Daily, # 30 tab(s), Refills(s) 0, Pharmacy: [facility], 167, cm, 09/29/23 16:31:00 EST, Height/Length Dosing, 62, kg, 09/29/23 16:31:00 EST, Weight Dosing chlorthalidone 25 mg Tab: 25 mg = 1 tab(s), Oral, Daily, # 30 tab(s), Refills(s) 0, Pharmacy: [facility], 167, cm, 09/29/23 16:31:00 EST, Height/Length Dosing, 62, kg, 09/29/23 16:31:00 EST, Weight Dosing ferrous sulfate 325 mg Tab: 325 mg = 1 tab(s), Oral, Every other day, # 30 tab(s), Refills(s) 0, Pharmacy: [facility], 167, cm, 09/29/23 16:31:00 EST, Height/Length [...] Push, q6hr (more content not included)... Normal [facility] Comment on above: Result Comment: Elec tronically [...] % HI Lymph Auto 1.8 % LOW [place] Auto 12.8 % Eos Auto 0.4 % Basophil Auto 1.1 % Neutro Absolute 21.3 E9/L HI Lymph Absolute 0.5 E9/L LOW [place] Absolute 3.3 E9/L HI Eos Absolute 0.1 [...] Man 0 % Basophil Man 2 % [place] Man 1 % HI React Lymph Man 0 % Segs Abs Man 24.1 E9/L HI Lymph Abs Man 0.3 E9/L LOW [place] Abs Man 1.3 E9/L HI Eos Abs Man 0.0 E9/L Basophil Abs Man 0.5 E9/L HI RBC Morph See Morphology Anisocytosis Present Microcyte Present Hypochromasia Present Polychromasia Present Ovalocytes Present Large Plt Present Glucose Lvl 99 mg/dL BUN 33 mg/dL HI Creatinine 1.7 mg/dL HI eGFR 40 mL/min/1.73 m2 LOW BUN/Creat Ratio 19 Sodium Lvl 139 mmol/L (more content not included)... Normal [facility] Comment on above: Result Comment: Elec tronically Signed By: Mildred Vasquez CNP\.br\Date and Time Signed: 10/02/23 13:55 EST\.br\Electronically Co-Signed By: Manav Cervantes MD\.br\Date and Time Co-Signed: 10/03/23 15:03 EST eGFRon 10-03-2023 GFR/1.73 sq M.predicted among non-blacks MDRD (S/P/Bld) [Vol rate/Area] 56 mL/min/1.73 m2 Low >=59 [facility] Comment on above: Order Comment: Order added by Discern Expert. Result Comment: Toolroom Keeper amado kidney disease could be indicated at eGFR's of less than 60 mL/min/1.73m2. Kidney failure is indicated at less than 15 mL/min/1.73m2. Performed By: #### 2 863959, 3703441, 2331970, 53848859 #### [facility] [address] [place] [address] Auto Diffon 10-02-2023 Basophils/100 WBC (Bld) 1.1 % Normal 0.0-2.0 [facility] Comment on above: Order Comment: Order Added by Discern Expert. Performed By: #### 2 908251, 5640926, 8052357, 96242743 #### [facility] [address] [place] [address] Basophils/Leukocytes Auto (Bld) [Pure # fraction] 0.3 E9/L High 0.0-0.2 [facility] Comment on above: Order Comment: Order Added by Discern Expert. Performed By: #### 2 825105, 2915701, 0267232, 13011560 #### [facility] [address] [place] [address] Eosinophils/100 WBC (Bld) 0.4 % Normal 0.0-8.0 [facility] Comment on above: Order Comment: Order Added by Discern Expert. Performed By: #### 2 902285, 3588695, 8483184, 30410488 #### [facility] [address] [place] [address] Eosinophils/Leukocytes Auto (Bld) [Pure # fraction] 0.1 E9/L Normal 0.0-0.5 [facility] Comment on above: Order Comment: Order Added by Discern Expert. Performed By: #### 2 570173, 9938200, 0219119, 33846244 #### [facility] [address] [place] [address] Lymphocytes/100 WBC (Bld) 1.8 % Low 14.0-50.0 [facility] Comment on above: Order Comment: Order Added by Discern Expert. Performed By: #### 2 622926, 8619156, 3922737, 72562158 #### [facility] [address] [place] [address] Lymphocytes/Leukocytes Auto (Bld) [Pure # fraction] 0.5 E9/L Low 1.0-4.0 [facility] Comment on above: Order Comment: Order Added by Discern Expert. Performed By: #### 2 959086, 4886807, 8975950, 88497496 #### [facility] [address] [place] [address] Monocytes/100 WBC (Bld) 12.8 % Normal 4.0-14.0 [facility] Comment on above: Order Comment: Order Added by Discern Expert. Performed By: #### 2 738328, 4219237, 8038893, 30386968 #### [facility] [address] [place] [address] Monocytes/Leukocytes Auto (Bld) [Pure # fraction] 3.3 E9/L High 0.2-1.0 [facility] Comment on above: Order Comment: Order Added by Discern Expert. Performed By: #### 2 773420, 5578867, 1610694, 94850060 #### [facility] [address] [place] [address] Neutrophils/100 WBC (Bld) 83.9 % High 36.0-75.0 [facility] Comment on above: Order Comment: Order Added by Discern Expert. Performed By: #### 2 259857, 2523137, 2497083, 25580425 #### [facility] [address] [place] [address] Neutrophils/Leukocytes Auto (Bld) [Pure # fraction] 21.3 E9/L High 2.0-7.5 [facility] Comment on above: Order Comment: Order Added by Discern Expert. Performed By: #### 2 725893, 6931970, 2938711, 72073505 #### [facility] [address] [place] [address] BMPon 10-02-2023 Anion gap [Moles/Vol] 8 mmol/L Normal 6-16 [facility] Comment on above: Performed By: #### 2 736871, 5523596, 3279523, 77437358 #### [facility] [address] [place] [address] Calcium [Mass/Vol] 8.5 mg/dL Low 8.9-11.1 [facility] Comment on above: Performed By: #### 2 957567, 4786687, 1665561, 32204984 #### [facility] [address] [place] [address] Chloride [Moles/Vol] 114 mmol/L High 101-111 [facility] Comment on above: Performed By: #### 2 301606, 3755300, 4939016, 28278800 #### [facility] [address] [place] [address] CO2 [Moles/Vol] 21 mmol/L Normal 21-31 [facility] Comment on above: Performed By: #### 2 671606, 8928200, 4379393, 79204976 #### [facility] [address] [place] [address] Creatinine [Mass/Vol] 1.5 mg/dL High 0.5-1.3 [facility] Comment on above: Performed By: #### 2 847275, 0330571, 1108533, 56984956 #### [facility] [address] [place] [address] Glucose [Mass/Vol] 94 mg/dL Normal 55-199 [facility] Comment on above: Result Comment: If t his glucose result represents a fasting glucose, interpretation should refer to the following reference range: 55-99 mg/dL Performed By: #### 2 626652, 9879214, 2072650, 23460222 #### [facility] [address] [place] [address] Potassium [Moles/Vol] 3.9 mmol/L Normal 3.5-5.3 [facility] Comment on above: Performed By: #### 2 332897, 4201528, 2194847, 52664268 #### [facility] [address] [place] [address] Sodium [Moles/Vol] 139 mmol/L Normal 135-145 [facility] Comment on above: Performed By: #### 2 426007, 1340753, 6884713, 33080778 #### [facility] [address] [place] [address] Urea nitrogen [Mass/Vol] 29 mg/dL High 5-21 [facility] Comment on above: Performed By: #### 2 903309, 0433205, 7540599, 66194188 #### [facility] [address] [address] Urea nitrogen/Creatinine [Mass ratio] 19 No Units Normal 10-20 [facility] Comment on above: Performed By: #### 2 769631, 4175074, 4653719, 81198641 #### [facility] [address] [place], [place] [address] CBC w/ Auto Diffon 3 Erythrocyte distribution width (RBC) [Ratio] 21.5 % High 10.9-14.2 [facility] Comment on above: Performed By: #### 2 093544, 6145858, 4701693, 20509119 #### [facility] [address] [place] [address] Hematocrit (Bld) [Volume fraction] 41.5 % Normal 37.7-49.0 [facility] Comment on above: Performed By: #### 2 088303, 1855889, 2393982, 75413525 #### [facility] [address] [place] [address] Hemoglobin (Bld) [Mass/Vol] 12.4 g/dL Low 13.5-17.5 [facility] Comment on above: Performed By: #### 2 362329, 0828937, 9241208, 20617269 #### [facility] [address] [place] [address] MCH (RBC) [Entitic mass] 19.1 pg Low 27.0-34.0 [facility] Comment on above: Performed By: #### 2 670236, 3897925, 5811776, 47963648 #### [facility] [address] [place] [address] MCHC (RBC) [Mass/Vol] 29.9 g/dL Low 31.4-36.0 Fis [facility] Comment on above: Performed By: #### 2 440578, 3317085, 9227734, 98251387 #### [facility] [address] [place] [address] MCV (RBC) [Entitic vol] 64.0 fL Low 80.0-100.0 [facility] Comment on above: Performed By: #### 2 645652, 4917383, 4715323, 20031776 #### [facility] [address] [place] [address] Platelet mean volume (Bld) [Entitic vol] 8.1 fL Normal 6.4-10.8 [facility] Comment on above: Performed By: #### 2 620867, 4026731, 7085908, 19132960 #### [facility] [address] [place] [address] Platelets (Bld) [#/Vol] 306.0 E9/L Normal 150.0-500.0 [facility] Comment on above: Performed By: #### 2 603819, 1220370, 2871657, 27054688 #### [facility] [address] [place] [address] RBC (Bld) [#/Vol] 6.5 E12/L High 4.3-5.9 [facility] Comment on above: Performed By: #### 2 879934, 4572991, 5905024, 93574580 #### [facility] [address] [place] [address] WBC corrected for nucl RBC Auto (Bld) [#/Vol] 25.4 E9/L High 4.0-11.0 [facility] Comment on above: Performed By: #### 2 856258, 8431123, 9095967, 90963337 #### [facility] [address] [place] [address] CHEMISTRYOrdered By: SYSTEM SYSTEM on 10-02-2023 Vancomycin [...] 47 mL/min/1.73 m2 Low >=59mL/min/1 .73 m2 [facility] Chem S Comment on above: Interpretive Data: [...] 13:39 EST FREE TEXT SOURCE: Keyon ANAYA, Raiza Ta MD, Raiza FINAL REPORTS Final Report [] Verified Date/Time: 10/02/2023 10:53 EST MRSA Negative. Performing Locations R1: This test was performed at: [facility], [address] [place] [address], [address]- , , [facility] Comment on above: Performed By: #### 2 390167, 6884341, 8071410, 99880943 #### [facility] [address] [place] [address] Magnesiumon 10-02-2023 Magnesium [Mass/Vol] 1.9 mg/dL Normal 1.3-2.4 [facility] Comment on above: Performed By: #### 2 163080, 7395789, 1954514, 96194787 #### [facility] [address] [place] [address] Main OR Intraoperative Recor don 10-02-2023 Main OR Intraoperative Record IntraOp Document Type FT Summary Primary Physician: Vinod Quinteros DPM Finalized Date/Time: 10/02/23 11:56:40 Pt. Name: VIKAS GRIMALDO Dorothy Hoffman/Sex: 1940 Male Med Rec #: [id number] Physician: Sonya Dee MD Financial #: [id number] Pt. Type: I Room/Bed: [place] [address] Admit/Disch: 09/29/23 16:15:49 - Institution: Case Times [...] Anesthesiologist Surgeon - Primary Scrub - Primary Access Assoc Time In 09/30/23 16:38:00 09/30/23 16:38:00 09/30/23 16:38:00 Time Out 09/30/23 17:19:00 09/30/23 17:19:00 09/30/23 17:00:00 Procedure FOOT I and D OF FOOT I and D OF FOOT I and D OF WOUND(Left) WOUND(Left) WOUND(Left) Comments Dr. Almodovar cloth laminating supervisor Last Modified By: Gwendolyn Willis Ii Alfons Ii F Cindyron, Alfons Ii F 09/30/23 17:22:19 09/30/23 17:22:19 09/30/23 17:22:19 Entry 4 Entry 5 Entry 6 Case Attendee Ellie Rajan Alfons Ii Shari Santana Role Performed Scrub - Relief Human Service Coordinator - Primary Human Service Coordinator - Relief Time In 09/30/23 17:00:00 09/30/23 [...] and tissue Entry 1 Skin Integrity Intact, Medill, Warm, and Skin Abnormality Yes Dry Abnormality Location Left foot Abnormality Type redness and swelling Outcomes Met? Yes Last Modified By: Gwendolyn Willis Ii 09/30/23 17:03:01 Post-Care Text: The patient is free from signs and symptoms of injury caused by extraneous objects Patient Positioning FT Pre-Care Text: Identifies physical alterations that require additional precautions for proc (more content not included)... Normal [facility] Monitor Recordon 10-02-2023 Monitor Record [id number] 4#1.00TIFF Normal [facility] Monitor Record [id number] 5#1.00TIFF Normal [facility] Morphon 10-02-2023 Anisocytosis Ql (Bld) Present Normal Fis her [facility] Comment on above: Order Comment: Order Added by Discern Expert. Performed By: #### 2 524466, 2202176, 2151783, 75816031 #### [facility] [address] [place] [address] Hypochromia Auto Ql (Bld) Present Normal [facility] Comment on above: Order Comment: Order Added by Discern Expert. Performed By: #### 2 696046, 1710850, 6948385, 13063717 #### [facility] [address] [place] [address] Microcytes Ql (Bld) Present Normal [facility] Comment on above: Order Comment: Order Added by Discern Expert. Performed By: #### 2 182907, 9396421, 1899880, 15764277 #### [facility] [address] [place] [address] Morphology Panfilo (Bld) [Interp] See Morphology Normal [facility] Comment on above: Order Comment: Order Added by Discern Expert. Performed By: #### 2 330514, 3790711, 7663847, 30645830 #### [facility] [address] [facility] [place] [address] Ovalocytes LM Ql (Bld) Present Normal [facility] Comment on above: Order Comment: Order Added by Discern Expert. Performed By: #### 2 541885, 1845965, 5365209, 20819493 #### [facility] [address] [place] [address] Platelets Large LM Ql (Bld) Present Normal [facility] Comment on above: Order Comment: Order Added by Discern Expert. Performed By: #### 2 369476, 8445798, 6466555, 69413974 #### [facility] [address] [place] [address] Operative Reporton 3 Operative Report SURGERY DATE: 09/30/2023 FOOD VENDOR: None PREOPERATIVE DIAGNOSES: 1. Abscess dorsal aspect [...] been consulted. Vinod Quinteros DPM Dictated: 09/30/2023 [id number] Transcribed: 10/01/2023 Normal [facility] Comment on above: Result Comment: Elec tronically [...] contact pharmacy if there are questions. Normal [facility] Progress Note-Physicianon Progress Note-Physician Basic Informatio n [...] Lymph Auto: 1.8 % Low (10/02/23 06:03:00) [place] Auto: 12.8 % (10/02/23 06:03:00) Eos Auto: 0.4 % (10/02/23 06:03:00) Basophil Auto: 1.1 % (10/02/23 06:03:00) Neutro Absolute: 21.3 E9/L High (10/02/23 06:03:00) Lymph Absolute: 0.5 E9/L Low (10/02/23 06:03:00) [place] Absolute: 3.3 E9/L High (10/02/23 06:03:00) Eos [...] Daily multivitamin, 1 tab, Oral, Daily Normal [facility] Comment on above: Result Comment: Elec tronically [...] bear with post op shoe agree with alf until antibiotics are completed with picc line pending ID recs -pt will be seen post op in office next week. -dressing can be changed before discharge to alf apply betadine to sutures gauze kerlix and celia with post op shoe Normal [facility] Comment on above: Result Comment: Elec tronically Signed By: Ramiro Quinteros DPM\.br\Date and Time Signed: 10/02/23 09:13 EST [place] 10-02-2023 VANCOMYCIN 32 microgram/mL Normal 20-40 [facility] Comment on above: Order Comment: sivakumar myers draw level one hour after vancomycin infusion Performed By: #### 2 174400 ####[facility] [address] [place] [address] eGFRon 10-02-2023 GFR/1.73 sq M.predicted among non-blacks MDRD (S/P/Bld) [Vol rate/Area] 47 mL/min/1.73 m2 Low >=59 [facility] Comment on above: Order Comment: Order added by Discern Expert. Result Comment: Toolroom Keeper amado kidney disease could be indicated at eGFR's of less than 60 mL/min/1.73m2. Kidney failure is indicated at less than 15 mL/min/1.73m2. Performed By: #### 2 678740, 8414121, 4738719, 23415528 #### [facility] [address] [place] [address] .Manual Abson 10-01-2023 Basophils/Leukocytes Manual cnt (Bld) [Pure # fraction] 0.5 E9/L High 0.0-0.2 [facility] Comment on above: Performed By: #### 2 488713, 81883922, 6095306, 99906711, 458407161, 4088870, 73799132 #### [facility] [address] [place] [address] Eosinophils/Leukocytes Manual cnt (Bld) [Pure # fraction] 0.0 E9/L Normal 0.0-0.5 [facility] Comment on above: Performed By: #### 2 505184, 57277215, 5355572, 33360602, 286394357, 6705632, 43920376 #### [facility] [address] [place] [address] Lymphocytes/Leukocytes Manual cnt (Bld) [Pure # fraction] 0.3 E9/L Low 1.0-4.0 [facility] Comment on above: Performed By: #### 2 005680, 05796350, 4843481, 90954149, 403067843, 6641017, 10008424 #### [facility] [address] [place] [address] Monocytes/Leukocytes Manual cnt (Bld) [Pure # fraction] 1.3 E9/L High 0.2-1.0 [facility] Comment on above: Performed By: #### 2 218432, 49432727, 4176354, 45505592, 795344488, 1012260, 71116955 #### [facility] [address] [place] [address] Neutrophils/Leukocytes Auto (Bld) [Pure # fraction] 24.1 E9/L High 2.0-7.5 [facility] Comment on above: Performed By: #### 2 705121, 71995288, 5157684, 04185196, 199216625, 3133255, 38603600 #### [facility] [address] [place] [address] [facility] 10-01-2023 Anion gap [Moles/Vol] 5 mmol/L Low 6-16 [facility] Comment on above: Performed By: #### 2 647808, 69270574, 0600336, 32939132, 253478715, 9913379, 62464347 #### [facility] [address] [place] [address] Calcium [Mass/Vol] 8.3 mg/dL Low 8.9-11.1 [facility] Comment on above: Performed By: #### 2 002332, 00254578, 0925535, 24598897, 846696267, 8657618, 09027445 #### [facility] [address] [place] [address] Chloride [Moles/Vol] 116 mmol/L High 101-111 [facility] Comment on above: Performed By: #### 2 575295, 16652587, 2484823, 58392473, 989485318, 9397967, 07243762 #### [facility] [address] [place] [address] CO2 [Moles/Vol] 22 mmol/L Normal 21-31 [facility] Comment on above: Performed By: #### 2 133329, 79523208, 1763066, 17070666, 397200380, 3758972, 15851932 #### [facility] [address] [place] [address] Creatinine [Mass/Vol] 1.7 mg/dL High 0.5-1.3 [facility] Comment on above: Performed By: #### 2 516609, 60519644, 4868562, 65779519, 862508161, 4377281, 36321888 #### [facility] [address] [place] [address] Glucose [Mass/Vol] 99 mg/dL Normal 55-199 [facility] Comment on above: Result Comment: If t his glucose result represents a fasting glucose, interpretation should refer to the following reference range: 55-99 mg/dL Performed By: #### 2 689563, 44616699, 7879660, 33633516, 694014079, 4263705, 54666992 #### [facility] [address] [place] [address] Potassium [Moles/Vol] 4.2 mmol/L Normal 3.5-5.3 [facility] Comment on above: Performed By: #### 2 358534, 72598003, 9474595, 16606881, 690327008, 8232131, 40450482 #### [facility] [address] [place] [address] Sodium [Moles/Vol] 139 mmol/L Normal 135-145 [facility] Comment on above: Performed By: #### 2 385835, 54740257, 2967434, 50930748, 954024321, 4057260, 07997329 #### [facility] [address] [place] [address] Urea nitrogen [Mass/Vol] 33 mg/dL High 5-21 [facility] Comment on above: Performed By: #### 2 414319, 71934862, 9897458, 04444329, 349055987, 1038057, 89637395 #### [facility] [address] [place] [address] Urea nitrogen/Creatinine [Mass ratio] 19 No Units Normal 10-20 [facility] Comment on above: Performed By: #### 2 093593, 12836483, 1440736, 78789193, 616496833, 6599021, 06879276 #### [facility] [address] [place] [address] CBC w/ Auto Diffon 3 Erythrocyte distribution width (RBC) [Ratio] 21.6 % High 10.9-14.2 [facility] Comment on above: Performed By: #### 2 519663, 16248490, 9074587, 58694229, 519587343, 9632018, 17351815 #### [facility] [address] [place] [address] Hematocrit (Bld) [Volume fraction] 39.9 % Normal 37.7-49.0 [facility] Comment on above: Performed By: #### 2 241206, 66385886, 7128911, 40758398, 957853122, 3847893, 32811243 #### [facility] [address] [place] [address] Hemoglobin (Bld) [Mass/Vol] 12.3 g/dL Low 13.5-17.5 [facility] Comment on above: Performed By: #### 2 264337, 44636274, 0391007, 38233096, 844304593, 7323998, 97026882 #### [facility] [address] [place] [address] MCH (RBC) [Entitic mass] 19.8 pg Low 27.0-34.0 [facility] Comment on above: Performed By: #### 2 191230, 43451581, 6663428, 06169792, 496622675, 9004959, 27929303 #### [facility] [address] [place] [address] MCHC (RBC) [Mass/Vol] 31.0 g/dL Low 31.4-36.0 [facility] Comment on above: Performed By: #### 2 197518, 05691016, 4488927, 28854793, 079908044, 8827809, 00083633 #### [facility] [address] [place] [address] MCV (RBC) [Entitic vol] 64.0 fL Low 80.0-100.0 [facility] Comment on above: Performed By: #### 2 170979, 18759009, 4361109, 38735062, 435601970, 3195832, 54857086 #### [facility] [address] [place] [address] Platelet mean volume (Bld) [Entitic vol] 6.6 fL Normal 6.4-10.8 [facility] Comment on above: Performed By: #### 2 624910, 42809769, 7682914, 59391826, 726095686, 9012512, 96794147 #### [facility] [address] [place] [address] Platelets (Bld) [#/Vol] 587.0 E9/L High 150.0-500.0 [facility] Comment on above: Performed By: #### 2 888522, 45612114, 2856612, 72025022, 622143128, 6038864, 30190443 #### [facility] [address] [place] [address] RBC (Bld) [#/Vol] 6.2 E12/L High 4.3-5.9 [facility] Comment on above: Performed By: #### 2 862569, 18639942, 3362947, 17351825, 395315674, 2036360, 25063583 #### [facility] [address] [place] [address] WBC corrected for nucl RBC Auto (Bld) [#/Vol] 26.5 E9/L High 4.0-11.0 [facility] Comment on above: Performed By: #### 2 993012, 24323272, 7861650, 33851294, 693300933, 2776626, 58165542 #### [facility] [address] [place] [address] CHEMISTRYOrdered By: SYSTEM SYSTEM on 10-01-2023 Anion [...] GRIMALDO; Caller Number: H Documentation per a cloud consultant in the medical record indicates this [...] judgment of the documented diagnoses by the cloud consultant, do you agree with the diagnosis? [___]Yes, I agree with the diagnosis documented by the cloud consultant. [___]No, I do not agree with the diagnosis documented by the cloud consultant. Reason: In responding to this request, [...] agree with the diagnosis documented by the cloud consultant. [facility] Coding Query - From: Kerwin Small RN To: Raiza Ta MD; Sent: 10/01/2023 10:24:42 EST ! Subject: Coding Query Due Date/Time: 10/02/2023 10:24:00 EST Caller Name: VIKAS GRIMALDO; Caller Number: H Documentation per a cloud consultant in the medical record indicates this patient has been diagnosed as having: sepsis The following is also documented in the medical record: 09/30 Oncology: Diagnosis Thrombocytosis (KMB45-OJ D75.839, Discharge, Medical). Abscess of left foot excluding toes (HSB92-UJ L02.612, Discharge, Medical). Iron deficiency (MLB52-AS E61.1, Working, Medical). Course: His thrombocytosis could be multifactorial but sepsis, his left foot severe infection can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 MD Financial #: [id number] Pt. Type: I Room/Bed: [place] [address] Admit/Disch: 09/29/23 16:15:49 - Institution: Case Times [...] By: Yanira Gimenez RN 09/30/23 18:05 Normal [facility] Main OR Preoperative Recordo n 09-30-2023 Main OR Preoperative Record PreOp Document Type FT Summary Primary Physician: Vinod Quinteros DPM Finalized Date/Time: 09/30/23 17:06:18 Pt. Name: VIKAS GRIMALDO Dorothy GarciaB./Sex: 1940 Male Med Rec #: [id number] Physician: Sonya Dee MD Financial #: [id number] Pt. Type: I Room/Bed: [place] [address] Admit/Disch: 09/29/23 16:15:49 - Institution: Case Times [...] Gwendolyn Willis Ii F 09/30/23 17:06 Normal [facility] Manual Diffon 09-30-2023 Anisocytosis Ql (Bld) Present Normal Fis [facility] Comment on above: Order Comment: Order Added by Discern Expert. Performed By: #### 2 716258, 46253342, 3019874, 18080813, 590322879, 0086560, 27984501 ####[facility] [address] [place] [address] Band form neutrophils/100 WBC (Bld) 0 % Normal 0-10 [facility] Comment on above: Order Comment: Order Added by Discern Expert. Performed By: #### 2 712219, 74352271, 2971524, 77814603, 761781553, 9278427, 44769115 ####[facility] [address] [place] [address] Basophils/100 WBC (Bld) 2 % Normal 0-2 [facility] Comment on above: Order Comment: Order Added by Discern Expert. Performed By: #### 2 999298, 42279089, 5127862, 63645652, 097128623, 0498858, 05836307 ####[facility] [address] [place] [address] Eosinophils/100 WBC (Bld) 2 % Normal 0-8 [facility] Comment on above: Order Comment: Order Added by Discern Expert. Performed By: #### 2 395070, 09555170, 3289228, 99976504, 217490515, 4239909, 69333638 ####[facility] [address] [place] [address] Hypochromia Auto Ql (Bld) Present Normal [facility] Comment on above: Order Comment: Order Added by Discern Expert. Performed By: #### 2 163713, 89722424, 6770115, 01086096, 827268954, 1311135, 56096660 ####[facility] [address] [place] [address] Lymphocytes/100 WBC (Bld) 0 % Low 14-50 [facility] Comment on above: Order Comment: Order Added by Discern Expert. Performed By: #### 2 786961, 51154478, 3359056, 56214669, 518908627, 4816736, 56692705 ####[facility] [address] [place] [address] Microcytes Ql (Bld) Present Normal Fishe r [facility] Comment on above: Order Comment: Order Added by Discern Expert. Performed By: #### 2 940678, 48790078, 2039308, 10268159, 808508667, 9166084, 80241394 ####[facility] [address] [place] [address] Monocytes/100 WBC (Bld) 13 % Normal 4-14 [facility] Comment on above: Order Comment: Order Added by Discern Expert. Performed By: #### 2 039567, 96810441, 4144308, 30702372, 178545446, 5878120, 49260059 ####[facility] [address] [place] [address] Morphology Panfilo (Bld) [Interp] See Morphology Normal [facility] Comment on above: Order Comment: Order Added by Discern Expert. Performed By: #### 2 868348, 91213007, 0865466, 74374312, 209488083, 3561407, 20832304 ####[facility] [address] [place] [address] Nucleated cells (Bld) [#/Vol] 1 High <=0 [facility] Comment on above: Order Comment: Order Added by Discern Expert. Performed By: #### 2 150241, 72153523, 9988639, 75514205, 984233324, 8631931, 34282619 ####[facility] [address] [place] [address] Platelets Large LM Ql (Bld) Present Normal [facility] Comment on above: Order Comment: Order Added by Discern Expert. Performed By: #### 2 615465, 74880354, 0178705, 18926663, 973044291, 2380552, 16181863 ####[facility] [address] [place] [address] Segmented neutrophils/100 WBC (Bld) 82 % High 36-75 [facility] Comment on above: Order Comment: Order Added by Discern Expert. Performed By: #### 2 533591, 82541660, 6477454, 17663833, 494201394, 1931205, 65323433 ####[facility] [address] [place] [address] Variant lymphocytes LM Ql (Bld) 1 % High <=0 [facility] Comment on above: Order Comment: Order Added by Discern Expert. Performed By: #### 2 400193, 44390355, 6648634, 31598969, 708315977, 4616079, 87908003 ####[facility] [address] [place] [address] Message from Medicareon 11- Message from Medicare [id number] 2#1.00TIFF Normal [facility] Monitor Recordon 09-30-2023 Monitor Record [id number] 3#1.00TIFF Normal [facility] Monitor Record [id number] 0#1.00TIFF Normal [facility] Monitor Record [id number] 2#1.00TIFF Normal [facility] Monitor Record [id number] 1#1.00TIFF Normal [facility] No Panel InformationOrdered By: Melly Guevara on 09-30-2023 GS 1+ White Blood Cells No organisms seen. [facility] Wound Culture No growth at 3 days. F [facility] GS 1+ White Blood Cells No organisms seen. [facility] Wound Culture No growth at 3 days. F [facility] Oncology Progress Noteon Oncology Progress Note Patient: VIKAS GRIMALDO Age: 82 years Sex: Male : 1940 Associated Diagnoses: None Author: Lashanda ANAYA, Orlando Caballero Chief Complaint Thrombocytosis in setting of left foot abscess. History of Present Illness 82-year-old male who was sent to [facility] ER by Dr. Quinteros with concerns regarding [...] Pressure Locatio (more content not included)... Normal [facility] Path. Reviewon 09-30-2023 Path Review Granulocytic leukocytosis with monocytosis and mild basophilia. Anemia with marked anisopoikilocytosis, target cells, ovalocytes and polychromasia. Clinical correlation is indicated for etiology. Thrombocytosis with giant platelets. Invalid Interpretation Code [facility] Comment on above: Order Comment: Order Added by Discern Expert. Performed By: #### 2 434867, 71275672, 3816409, 90220601, 918314304, 5842574, 48168314 #### [facility] [address] [place] [address] Progress Note - Pharmacyon 11-30-2022 Progress Note [...] questions, please contact the pharmacy at extension [phone]. Age: 82 Years Allergies: NKDA Weight: Last [...] Abs Man: 0.4 E9/L Low (09/30/23 06:07:00) [place] Abs Man: 4.8 E9/L High (09/30/23 06:07:00) [...] Tr: 7 mcg/mL Low (09/30/23 19:04:00) Normal [facility] Progress Note-Physicianon Progress Note-Physician Patient: VIKAS GRIMALDO Age: 82 years Sex: Male : 1940 Associated Diagnoses: None Author: Vinod Quinteros DPM Postoperative Information Preoperative Diagnosis: abscess left foot with non healing wound left . Postoperative Diagnosis: same. Performed by: Vinod Quinteros DPM. Complications: None. i and d mulktiple areas left foot, dpc left Normal [facility] Comment on above: Result Comment: Elec tronically [...] Abs Man: 0.4 E9/L Low (09/30/23 06:07:00) [place] Abs Man: 4.8 E9/L High (09/30/23 06:07:00) [...] 1 mL (more content not included)... Normal [facility] Comment on above: Result Comment: Elec tronically Signed By: Keyon ANAYA, Raiza\.br\Date and Time Signed: 09/30/23 11:07 EST TIBC Calculatedon 09-30-2023 Iron binding capacity [Mass/Vol] 339 microgram/dL Normal 250-400 [facility] Comment on above: Performed By: #### 2 693494, 33608159, 3654393, 73614073, 418240936, 9098113, 28036498 ####[facility] [address] [place] [address] Transferrin [Mass/Vol] 242 mg/dL Normal 200-370 [facility] Comment on above: Performed By: #### 2 463633, 58137861, 2044745, 92216014, 352668700, 5409343, 30231983 ####[facility] [address] [place] [address] URINALYSISOrdered By: Tomy Houston on 09-30-2023 Bilirubin [...] PM) Normal Negative [facility] UA Auto SS [place].plasma/[place].R BC (Bld) [Mass ratio] 0-3 /HPF Normal [...] [facility] UA Auto SS Urobilinogen Qn (U) 0.6243785 {Snow'U}/dL Normal 0.0 - 1.0 EU/dL [facility] UA Auto SS WBC Auto Ql (U) Negative (09/30/23 11:31 PM) Normal Negative [facility] UA Auto SS WBC LM.HPF (Urine sed) [#/Area] 0-5 /HPF Normal 0-5/HPF [facility] UA Auto SS Vanco Troughon 09-30-2023 VANCOMYCIN 7 microgram/mL Low 10-20 [facility] Comment on above: Order Comment: Rando m level Performed By: #### 2 433548 ####[facility] [address] [place] [address] XR Chest Single Viewon 09-30 XR Chest [...] mGy = na DAP = na Normal [facility] XR Foot 3+ Views Lefton 09-04 XR [...] Nikko Llamas MD Transcribed by: KORINA Technologist: PEDRO LUIS Technical Comments Radiation Dose: Ka,r in mGy = na DAP = na Normal [facility] eGFRon 09-30-2023 GFR/1.73 sq M.predicted among non-blacks MDRD (S/P/Bld) [Vol rate/Area] 38 mL/min/1.73 m2 Low >=59 [facility] Comment on above: Order Comment: Order added by Discern Expert. Result Comment: Toolroom Keeper amado kidney disease could be indicated at eGFR's of less than 60 mL/min/1.73m2. Kidney failure is indicated at less than 15 mL/min/1.73m2. Performed By: #### 2 939806, 82544155, 3061670, 71643437, 910834747, 0370903, 89844293 #### [facility] [address] [place] [address] .Manual Abson 09-29-2023 Basophils/Leukocytes Manual cnt (Bld) [Pure # fraction] 1.0 E9/L High 0.0-0.2 [facility] Comment on above: Performed By: #### 2 676002, 63210117, 4937177, 74473236, 108052250, 8393876, 58010582 #### [facility] [address] [place] [address] Eosinophils/Leukocytes Manual cnt (Bld) [Pure # fraction] 1.0 E9/L High 0.0-0.5 [facility] Comment on above: Performed By: #### 2 723231, 96952172, 8714282, 74023779, 272298671, 9615312, 94705461 #### [facility] [address] [place] [address] Lymphocytes/Leukocytes Manual cnt (Bld) [Pure # fraction] 1.7 E9/L Normal 1.0-4.0 [facility] Comment on above: Performed By: #### 2 403839, 49644898, 9567045, 55636846, 701651045, 6487454, 12431511 #### [facility] [address] [place] [address] Monocytes/Leukocytes Manual cnt (Bld) [Pure # fraction] 1.9 E9/L High 0.2-1.0 [facility] Comment on above: Performed By: #### 2 060604, 52741680, 9177914, 10680092, 838974210, 4087672, 55471840 #### [facility] [address] [place] [address] Neutrophils/Leukocytes Auto (Bld) [Pure # fraction] 18.7 E9/L High 2.0-7.5 [facility] Comment on above: Performed By: #### 2 143706, 28594562, 9051818, 91518548, 024669718, 2909356, 17443288 #### [facility] [address] [place] [address] CBC w/ Auto Diffon 3 Erythrocyte distribution width (RBC) [Ratio] 21.9 % High 10.9-14.2 [facility] Comment on above: Performed By: #### 2 121144, 20749280, 4899289, 59875780, 742204098, 2598553, 41981265 #### [facility] [address] [place] [address] Hematocrit (Bld) [Volume fraction] 46.3 % Normal 37.7-49.0 [facility] Comment on above: Performed By: #### 2 721331, 92539639, 1931753, 73690702, 469334506, 7745044, 29286427 #### [facility] [address] [place] [address] Hemoglobin (Bld) [Mass/Vol] 13.7 g/dL Normal 13.5-17.5 [facility] Comment on above: Performed By: #### 2 190617, 11323050, 1383023, 27152436, 642751375, 1431640, 01274746 #### [facility] [address] [place] [address] MCH (RBC) [Entitic mass] 19.2 pg Low 27.0-34.0 [facility] Comment on above: Performed By: #### 2 693865, 62703134, 8300379, 17162055, 212903570, 3437953, 65977720 #### [facility] [address] [place] [address] MCHC (RBC) [Mass/Vol] 29.6 g/dL Low 31.4-36.0 [facility] Comment on above: Performed By: #### 2 948679, 90228899, 2555111, 76826504, 354923220, 1766222, 42878214 #### [facility] [address] [place] [address] MCV (RBC) [Entitic vol] 64.9 fL Low 80.0-100.0 [facility] Comment on above: Performed By: #### 2 962132, 43365860, 4932956, 95993156, 900098314, 1083796, 32712773 #### [facility] [address] [place] [address] Platelet mean volume (Bld) [Entitic vol] 8.4 fL Normal 6.4-10.8 [facility] Comment on above: Performed By: #### 2 722808, 71281396, 0754322, 15615026, 180904057, 6565475, 01160271 #### [facility] [address] [place] [address] Platelets (Bld) [#/Vol] 2164.0 E9/L Abnormal 150.0-500.0 [facility] Comment on above: Result Comment: Plat elet count verified using smear estimate Results Called To Stef Ragland / KELSEY By Alesia Lim And Read Back For Confirmation On 09/29/2023 182. Results Verified By Repeat Analysis Performed By: #### 2 773043, 06709735, 3571619, 82421111, 494720095, 5938977, 86030369 #### [facility] [address] [place] [address] RBC (Bld) [#/Vol] 7.1 E12/L High 4.3-5.9 [facility] Comment on above: Performed By: #### 2 508215, 36252746, 4050733, 63548731, 464796076, 2842667, 45828140 #### [facility] [address] [place] [address] WBC corrected for nucl RBC Auto (Bld) [#/Vol] 24.3 E9/L High 4.0-11.0 [facility] Comment on above: Performed By: #### 2 299325, 25197836, 6709589, 27340082, 451374107, 5330136, 07366050 #### [facility] [address] [place] [address] CHEMISTRYOrdered By: SYSTEM SYSTEM on 09-29-2023 Cobalamin [...] 6.6 g/dL Normal 6.0 - 7.8 gm/dL [facility] Remisol CMPon 09-29-2023 Albumin [Mass/Vol] 3.5 g/dL Normal 3.3-5.0 [facility] Comment on above: Performed By: #### 2 973068, 21406345, 7762851, 05466350, 337807421, 9904373, 14661810 #### [facility] [address] [place] [address] Albumin/Globulin (S) [Mass conc ratio] 1.1 Normal 1.1-2.2 [facility] Comment on above: Performed By: #### 2 447999, 03834420, 9279812, 96766493, 963842902, 3183927, 17759051 #### [facility] [address] [place] [address] ALP [Catalytic activity/Vol] 67 Int._Unit/L Normal 21-98 [facility] Comment on above: Performed By: #### 2 357481, 35946841, 6197926, 67302699, 299396419, 7644142, 00034318 #### [facility] [address] [place] [address] ALT No additional P-5'-P [Catalytic activity/Vol] 16 Int._Unit/L Normal 6-46 [facility] Comment on above: Performed By: #### 2 358369, 78792702, 8747539, 99927728, 481288194, 4969725, 37627659 #### [facility] [address] [place] [address] AST [Catalytic activity/Vol] 23 Int._Unit/L Normal 5-43 [facility] Comment on above: Performed By: #### 2 006288, 79203909, 2176481, 25547520, 003920561, 6245462, 83372772 #### [facility] [address] [place] [address] Bilirubin [Mass/Vol] 0.5 mg/dL Normal 0.0-1.1 [facility] Comment on above: Performed By: #### 2 466518, 13140629, 8225091, 53983329, 646733472, 1111731, 96697222 #### [facility] [address] [place] [address] Creatinine [Mass/Vol] 1.8 mg/dL High 0.5-1.3 [facility] Comment on above: Performed By: #### 2 327939, 28563020, 9470677, 35894391, 826475218, 7791353, 28135873 #### [facility] [address] [place] [address] Globulin (S) [Mass/Vol] 3.1 g/dL Normal 1.4-4.0 [facility] Comment on above: Performed By: #### 2 735445, 41432280, 6278283, 13778885, 599978554, 1318290, 62401177 #### [facility] [address] [place] [address] Protein [Mass/Vol] 6.6 g/dL Normal 6.0-7.8 [facility] Comment on above: Performed By: #### 2 965982, 88316271, 1184271, 76145737, 920052495, 0006870, 37786617 #### [facility] [address] [place] [address] Urea nitrogen [Mass/Vol] 31 mg/dL High 5-21 [facility] Comment on above: Performed By: #### 2 828934, 95807096, 4597785, 61764011, 477268737, 9141099, 89900836 #### [facility] [address] [place] [address] Urea nitrogen/Creatinine [Mass ratio] 17 No Units Normal 10-20 [facility] Comment on above: Performed By: #### 2 291232, 98937954, 0974275, 66130697, 533263762, 4461148, 81443556 #### [facility] [address] [place] [address] Anion gap [Moles/Vol] 9 mmol/L Normal 6-16 [facility] Comment on above: Performed By: #### 2 639093, 77186576, 8289325, 00643130, 874914917, 1846375, 63324075 #### [facility] [address] [place] [address] Calcium [Mass/Vol] 8.9 mg/dL Normal 8.9-11.1 [facility] Comment on above: Performed By: #### 2 459073, 38193913, 8899502, 16421800, 327998263, 0955075, 93998478 #### [facility] [address] [place] [address] Chloride [Moles/Vol] 109 mmol/L Normal 101-111 [facility] Comment on above: Performed By: #### 2 478291, 29422355, 3881311, 94308941, 998417539, 0885436, 38138672 #### [facility] [address] [place] [address] CO2 [Moles/Vol] 25 mmol/L Normal 21-31 [facility] Comment on above: Performed By: #### 2 369208, 55372211, 5170012, 25138046, 146394743, 2460123, 30362217 #### [facility] [address] [place] [address] Glucose [Mass/Vol] 96 mg/dL Normal 55-199 [facility] Comment on above: Result Comment: If t his glucose result represents a fasting glucose, interpretation should refer to the following reference range: 55-99 mg/dL Performed By: #### 2 339545, 14468162, 3608279, 83627058, 586342212, 4014768, 80512963 #### [facility] [address] [place] [address] Potassium [Moles/Vol] 3.8 mmol/L Normal 3.5-5.3 [facility] Comment on above: Performed By: #### 2 558821, 80088781, 5618686, 74665419, 438585362, 9774885, 17196768 #### [facility] [address] [place] [address] Sodium [Moles/Vol] 139 mmol/L Normal 135-145 [facility] Comment on above: Performed By: #### 2 619039, 67178363, 2019580, 63303253, 379579771, 3926789, 87278801 #### [facility] [address] [place] [address] COAGULATIONOrdered By: Augustin Mahoney on 09-29-2023 aPTT Coag (PPP) [Time] 41.4 s High 25.1 - 36.5 second(s) [facility] Comment on above: Interpretive Data: [...] the same coagulation reagent and instrumentation as [facility]. Currently there are no coagulation studies available worldwide for children to 14 days, and no normal ranges. Heparin therapeutic range (represented by Anti-Factor Xa activity of 0.2 - 0.4 U/mL) corresponds to PTT of 56.6 - 109.0 sec. INR Coag (PPP) [Relative time] 1.4 {INR} Invalid Interpretation Code [facility] Comment on above: Interpretive Data: I NR results are specifically intended to assess patients stabilized on long-term Anticoagulation therapy suggested INR s Less Intensive Anticoagulation 2.0 3.0 Conventional Range 3.0 4.5 PT Coag (PPP) [Time] 15.4 s High 9.4 - 1 2.5 second(s) [facility] Comment on above: Interpretive Data: [...] the same coagulation reagent and instrumentation as [facility]. Currently there are no coagulation studies available worldwide for children to 14 days, and no normal ranges. CRPon 09-29-2023 CRP [Mass/Vol] 1.1 mg/dL Normal <=1.9 [facility] Comment on above: Performed By: #### 2 702075, 09530667, 6936031, 82894776, 344370133, 2154278, 80299160 #### [facility] [address] [place] [address] Consent for Treatmenton 09-04 Consent for Treatment [id number] #[id number] Normal [facility] ED Clinical Summaryon 2022 ED Clinical Summary [address] [address] ED Clinical Summary Person Information Name: CAROLINAYANGVIKAS/[facility] Age: 82 Years : 1940 Sex: Male Language: Palauan PCP: JUSTIN CARUSO Marital Status: Single Visit Id: Visit Reason: Wound infection - complicated; LEFT FT - SENT BY [facility] Speciality: Acuity: 3 Enc Type: Observation Med Service: Emergency Arrival: 09/29/2023 16:15:49 Discharge: LOS: 000 04:32 Checkin: 09/29/2023 16:15:49 Checkout: 09/29/2023 20:47:13 Dispo Type: [facility] EVENTS: Event Name Event Status Request [...] 09/29/2023 20:06:22 Lab Request 09/29/2023 20:06:22 ADDRESS: [facility] [address] [place] [id number] PHYS DOC NOTES: MEDICAL INFORMATION: Prescriptions Given: PATIENT EDUCATION INFORMATION: Instructions: Follow up: DIAGNOSIS: 1:Abscess of left foot excluding toes; 2:Thrombocytosis; 3:JOSELINE (acute kidney injury) Normal [facility] ED Note-Physicianon 09-29-20 ED Note-Physician Basic Information [...] past week 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 No recent injury, but he [...] MOOD AND AFFECT Medical Decision Making Per textile science technician, negative for DVT. Blood cultures pending. He [...] (09/29/23 17:13 (more content not included)... Normal [facility] Comment on above: Result Comment: Elec tronically Signed By: Alondra Camarena PA-C\.br\Date and Time Signed: 09/29/23 19:30 EST\.br\Electronically Co-Signed By: Samantha Gaffney M.D.\.br\Date and Time Co-Signed: 09/29/23 19:57 EST ED Patient Education Noteon 09-29-2023 ED Patient Education Note Normal [facility] ED Patient Summaryon 023 ED Patient Summary [address] [id number] Patient Discharge Instructions Person Information Name: VIKAS GRIMALDO Age: 82 Years Arrival Date: 09/29/2023 16:15:49 Discharge Diagnosis: 1:Abscess of left foot excluding toes; 2:Thrombocytosis; 3:JOSELINE (acute kidney injury) Primary Care Physician: JUSTIN CARUSO Provider Information Primary Provider: Samantha Gaffney M.D. Advanced Mortar Worker:None The exam and treatment you received in the Emergency Department were for an urgent problem and are not intended as complete care. It is important that you follow up with a doctor, nurse practitioner, or physician?s assistant professor of religion for ongoing care. If your symptoms become [...] opioids can be used to help relieve kkwzcqbc-dx-hlkole pain and are often prescribed following a [...] be struggling with addiction, tell your health youth career specialist and ask for guidance or call [employer]?S National Helpline at 4-891-781-HELP. v Source: [place] Department of Health and Human Services/Center for Disease Control & Prevention [facility] (more content not included)... Normal [facility] Ferritinon 09-29-2023 Ferritin [Mass/Vol] 106 ng/mL Normal 24-336 [facility] Comment on above: Result Comment: NORM ALS MEN <30 YRS 16-132 ng/mL MEN >30 YRS 8-338 ng/mL WOMEN (PREMEN) 6-104 ng/mL WOMEN (POSTMEN) 12-210 ng/mL Performed By: #### 2 867606, 35871252, 4485624, 59386341, 829382936, 9591777, 55295091 #### [facility] [address] [place] [address] Folateon 09-29-2023 Folate [Mass/Vol] ng/mL Normal >=6.7 [facility] Comment on above: Performed By: #### 2 604250, 10123748, 1558768, 77840426, 984582581, 0922209, 76354409 #### [facility] [address] [place] [address] HEMATOLOGYOrdered By: Maciej Lim on 09-29-2023 Band form neutrophils/100 WBC (Bld) [...] 1.9 E9/L High 0.2 - 1.0 E9/L [facility] HemeManSS Neutrophils/Leukocytes Auto (Bld) [Pure # fraction] 18.7 E9/L High 2.0 - 7.5 E9/L [facility] HemeManSS Nucleated cells (Bld) [#/Vol] 2 1 High <=0 [facility] HemeManSS Polychromasia LM Ql (Bld) Present (09/29/23 5:13 PM) Normal [facility] Segmented neutrophils/100 WBC (Bld) 77 % High 36 - 75 % [facility] HemeManSS Variant lymphocytes LM Ql (Bld) 1 % High <=0% [facility] HemeManSS HEMATOLOGYOrdered By: Alyssa Butler on 09-29-2023 Path Review Granulocytic leukocytosis with monocytosis and mild basophilia. Anemia with marked anisopoikilocytosis, target cells, ovalocytes and polychromasia. Clinical correlation is indicated for etiology. Thrombocytosis with giant platelets.D75.9CPT 54078 Invalid Interpretation Code [facility] HemeLynch StationSS Ironon 09-29-2023 Iron [Mass/Vol] 25 microgram/dL Low 35-153 [facility] Comment on above: Performed By: #### 2 187102, 47618007, 1587721, 07081458, 902730350, 7992236, 36280028 #### [facility] [address] [place] [address] Lactic Acidon 09-29-2023 Lactate [Mass/Vol] 1.2 mmol/L Normal 0.5-2.2 [facility] Comment on above: Performed By: #### 2 397807, 62933134, 3752585, 14892438, 235074422, 7426686, 42198689 #### [facility] [address] [place] [address] Magnesiumon 09-29-2023 Magnesium [Mass/Vol] 1.9 mg/dL Normal 1.3-2.4 [facility] Comment on above: Performed By: #### 2 425055, 70399863, 5247992, 57920811, 164828513, 6055075, 36321745 #### [facility] [address] [place] [address] Manual Diffon 09-29-2023 Anisocytosis Ql (Bld) Present Normal [facility] Comment on above: Order Comment: Order Added by Discern Expert. Performed By: #### 2 751609, 23541874, 2673371, 19362450, 803404043, 9489831, 15646010 #### [facility] [address] [place] [address] Band form neutrophils/100 WBC (Bld) 0 % Normal 0-10 [facility] Comment on above: Order Comment: Order Added by Discern Expert. Performed By: #### 2 290520, 03399268, 0188470, 74515201, 652470289, 6318433, 76888787 #### [facility] [address] [place] [address] Basophils/100 WBC (Bld) 4 % High 0-2 [facility] Comment on above: Order Comment: Order Added by Discern Expert. Performed By: #### 2 890003, 10537033, 5750134, 11613120, 162128858, 9390428, 77134764 #### [facility] [address] [place] [address] Eosinophils/100 WBC (Bld) 4 % Normal 0-8 [facility] Comment on above: Order Comment: Order Added by Discern Expert. Performed By: #### 2 721453, 80743574, 9310465, 65402147, 135043948, 6014377, 93476565 #### [facility] [address] [place] [address] Hypochromia Auto Ql (Bld) Present Normal [facility] Comment on above: Order Comment: Order Added by Discern Expert. Performed By: #### 2 815603, 43739170, 2290780, 47336683, 070485921, 1168932, 94477596 #### [facility] [address] [place] [address] Lymphocytes/100 WBC (Bld) 6 % Low 14-50 [facility] Comment on above: Order Comment: Order Added by Discern Expert. Performed By: #### 2 403061, 44752125, 1394182, 74466136, 696591290, 1836107, 40709491 #### [facility] [address] [place] [address] Microcytes Ql (Bld) Present Normal [facility] Comment on above: Order Comment: Order Added by Discern Expert. Performed By: #### 2 916723, 40203149, 9476712, 78088027, 731255873, 6826251, 82722278 #### [facility] [address] [place] [address] Monocytes/100 WBC (Bld) 8 % Normal 4-14 [facility] Comment on above: Order Comment: Order Added by Discern Expert. Performed By: #### 2 917791, 50374848, 7737381, 35196792, 947116651, 9460221, 77218393 #### [facility] [address] [place] [address] Morphology Panfilo (Bld) [Interp] See Morphology Normal [facility] Comment on above: Order Comment: Order Added by Discern Expert. Performed By: #### 2 841856, 72728893, 1270108, 83273206, 546404161, 1924888, 71410746 #### [facility] [address] [place] [address] Nucleated cells (Bld) [#/Vol] 2 High <=0 [facility] Comment on above: Order Comment: Order Added by Discern Expert. Performed By: #### 2 049789, 07418129, 7881247, 22680737, 073424360, 7234816, 94036668 #### [facility] [address] [place] [address] Ovalocytes LM Ql (Bld) Present Normal [facility] Comment on above: Order Comment: Order Added by Discern Expert. Performed By: #### 2 349192, 16582874, 7000963, 00893413, 431207709, 5510004, 05640318 #### [facility] [address] [place] [address] Platelets Large LM Ql (Bld) Present Normal [facility] Comment on above: Order Comment: Order Added by Discern Expert. Performed By: #### 2 106932, 88891460, 5807281, 21554098, 813702242, 2627198, 05098320 #### [facility] [address] [place] [address] Polychromasia LM Ql (Bld) Present Normal [facility] Comment on above: Order Comment: Order Added by Discern Expert. Performed By: #### 2 059192, 61590669, 6495447, 77468380, 691103650, 1821070, 93594991 #### [facility] [address] [place] [address] Segmented neutrophils/100 WBC (Bld) 77 % High 36-75 [facility] Comment on above: Order Comment: Order Added by Discern Expert. Performed By: #### 2 349580, 38320315, 5494363, 61794719, 424400857, 6528905, 74635721 #### [facility] [address] [place] [address] Variant lymphocytes LM Ql (Bld) 1 % High <=0 [facility] Comment on above: Order Comment: Order Added by Discern Expert. Performed By: #### 2 500028, 34305741, 0624485, 95847871, 054762039, 6462907, 08278177 #### [facility] [address] [place] [address] No Panel InformationOrdered By: ANGPROCESSSERVER MICROBIOLOGY on 09-29-2023 Blood Culture Charcoal No growth at 4 da ys. Final to follow at [address] [facility] Blood Culture Charcoal No growth at 4 da ys. Final to follow at [address] [facility] PT & PTTon 09-29-2023 aPTT Coag (PPP) [Time] 41.4 second(s) High 25.1-36.5 [facility] Comment on above: Result Comment: Para meter [...] the same coagulation reagent and instrumentation as [facility]. Currently there are no coagulation studies available worldwide for children to 14 days, and no normal ranges. Heparin therapeutic range (represented by Anti-Factor Xa activity of 0.2 - 0.4 U/mL) corresponds to PTT of 56.6 - 109.0 sec. Performed By: #### 2 919030, 11795616, 1562979, 60026190, 673695261, 8369630, 64401571 #### [facility] [address] [place] [address] INR Coag (PPP) [Relative time] 1.4 {INR} Invalid Interpretation Code [facility] Comment on above: Result Comment: INR results are specifically intended to assess patients stabilized on long-term Anticoagulation therapy suggested INR?s ?Less Intensive Anticoagulation? 2.0 ? 3.0 Conventional Range 3.0 ? 4.5 Performed By: #### 2 150578, 53746013, 2783250, 61430098, 504899303, 3248423, 71886324 #### [facility] [address] [place] [address] PT Coag (PPP) [Time] 15.4 second(s) High 9.4-12.5 [facility] Comment on above: Result Comment: 15 d [...] the same coagulation reagent and instrumentation as [facility]. Currently there are no coagulation studies available worldwide for children to 14 days, and no normal ranges. Performed By: #### 2 468925, 38023770, 1091495, 54389702, 496801904, 6323849, 69158796 #### [facility] [address] [place] [address] Progress Note - Pharmacyon 1 11-29-2022 Progress [...] any questions, please contact the pharmacy at [phone]. Age: 82 Years Allergies: No Known Allergies [...] Lymph Abs Man: 1.7 E9/L (09/29/23 17:13:00) [place] Abs Man: 1.9 E9/L High (09/29/23 17:13:00) [...] Ferritin Lvl: 106 ng/mL (09/29/23 19:11:00) Normal [facility] RAD - MRI Screening Formon 1 11-29-2022 RAD - MRI Screening Form [id number]#1.00TIFF Normal [facility] Sed Rate Automatedon 023 ESR (Bld) [Velocity] 9 mm/h Normal 0-19 [facility] Comment on above: Performed By: #### 2 834809, 54316305, 6104073, 91883948, 053738757, 9414956, 18405401 #### [facility] [address] [place] [address] US LE Venous Duplex Lefton 1 11-29-2022 [...] MD Transcribed by: KORINA Technologist: CAITLIN Bautista [facility] Vit B12on 09-29-2023 Cobalamin (Vitamin B12) [Mass/Vol] 942 pg/mL Normal 50-1500 [facility] Comment on above: Performed By: #### 2 645025, 15345833, 2418778, 78143968, 232114078, 2911389, 16334055 #### [facility] [address] [place] [address] eGFRon 09-29-2023 GFR/1.73 sq M.predicted among non-blacks MDRD (S/P/Bld) [Vol rate/Area] 38 mL/min/1.73 m2 Low >=59 [facility] Comment on above: Order Comment: Order added by Discern Expert. Result Comment: Toolroom Keeper amado kidney disease could be indicated at eGFR's of less than 60 mL/min/1.73m2. Kidney failure is indicated at less than 15 mL/min/1.73m2. Performed By: #### 2 797972, 86050104, 6127243, 49180042, 002674506, 5394336, 67351189 #### [facility] [address] [place] [address] Vital Signs Date Time Vital Sign Value Performing Clinician Facility 12-04-2023 12:23-0500 Blood Pressure Location [facility] 12-04-2023 12:23-0500 Diastolic blood pressure 76 mm[Hg] [facility] Yung[facility] 12-04-2023 12:23-0500 Heart rate 80 /min [facility] YungTaasera [facility] 12-04-2023 12:23-0500 Respiratory rate 18 /min [facility] Sarmini [facility] 12-04-2023 12:23-0500 Systolic blood pressure 124 mm[Hg] [place] Sarmini [facility] 11-04-2023 10:04-0500 Blood Pressure Location [facility] 11-04-2023 10:04-0500 Body temperature 97.52 [degF] [facility] 11-04-2023 10:04-0500 Diastolic blood pressure 79 mm[Hg] [facility] 11-04-2023 10:04-0500 Heart rate 74 /min [facility] 11-04-2023 10:04-0500 Mean blood pressure 96 mm[Hg] [facility] 11-04-2023 10:04-0500 Respiratory rate 18 /min [facility] 11-04-2023 10:04-0500 SaO2% (BldA) [Mass fraction] 96 % [facility] 11-04-2023 10:04-0500 Systolic blood pressure 130 mm[Hg] [facility] 11-04-2023 10:02-0500 Heart rate 89 /min [facility] 11-04-2023 10:02-0500 SaO2% (BldA) [Mass fraction] 95 % Mhd Al-Marrawi [facility] 11-04-2023 10:01-0500 Body temperature 97.52 [degF] Mhd Al-Marrawi [facility] 11-04-2023 10:00-0500 Diastolic blood pressure 79 mm[Hg] Mhd [facility]raw[facility] 11-04-2023 10:00-0500 Mean blood pressure 96 mm[Hg] Mhd Al-[facility]raw[facility] 11-04-2023 10:00-0500 Systolic blood pressure 130 mm[Hg] Mhd [facility] 10-21-2023 15:00-0500 Blood Pressure Location Mhd Al-Marraw[facility] 10-21-2023 15:00-0500 Body temperature 99.32 [degF] Mhd [facility]raw[facility] 10-21-2023 15:00-0500 Diastolic blood pressure 68 mm[Hg] Mhd [facility]raw[facility] 10-21-2023 15:00-0500 Heart rate 82 /min Mhd Al-[facility]raw[facility] 10-21-2023 15:00-0500 SaO2% (BldA) [Mass fraction] 94 % Mhd Al-[facility]raw[facility] 10-21-2023 15:00-0500 Systolic blood pressure 109 mm[Hg] Mhd Al-[facility]raw[facility] 10-21-2023 14:00-0500 Diastolic blood pressure 72 mm[Hg] Mhd [facility]raw[facility] 10-21-2023 14:00-0500 Heart rate 80 /min Mhd Al-[facility]raw[facility] 10-21-2023 14:00-0500 Mean blood pressure 89 mm[Hg] Mhd Al-[facility]raw[facility] 10-21-2023 14:00-0500 Systolic blood pressure 124 mm[Hg] Mhd Al-[facility]raw[facility] 10-20-2023 14:28-0500 Heart rate 76 /min Mhd Al-Marraw[facility] 10-20-2023 14:28-0500 SaO2% (BldA) [Mass fraction] 97 % Mhd Al-Marrawi [facility] 10-20-2023 14:28-0500 Body temperature 97.7 [degF] Mhd Al-Marrawi [facility] 10-20-2023 14:28-0500 Diastolic blood pressure 74 mm[Hg] d Al-Marrawi [facility] 10-20-2023 14:28-0500 Mean blood pressure 99 mm[Hg] d Al-Marrawi [facility] 10-20-2023 14:28-0500 Systolic blood pressure 150 mm[Hg] d Al-Marrawi [facility] 10-20-2023 14:27-0500 Respiratory rate 14 /min Mhd Al-Marraw[facility] 10-03-2023 21:44-0500 Hourly Rounding [facility] 10-03-2023 21:44-0500 Promise to Return [facility] 10-03-2023 20:33-0500 Hourly Rounding [facility] 10-03-2023 20:33-0500 Promise to Return [facility] 10-03-2023 20:02-0500 Heart rate 92 /min [facility] 10-03-2023 20:02-0500 SaO2% (BldA) [Mass fraction] 91 % [facility] 10-03-2023 20:01-0500 Diastolic blood pressure 64 mm[Hg] [facility] 10-03-2023 20:01-0500 Mean blood pressure 92 mm[Hg] [facility] 10-03-2023 20:01-0500 Systolic blood pressure 149 mm[Hg] [facility] 10-03-2023 19:30-0500 Hourly Rounding [facility] 10-03-2023 19:30-0500 Promise to Return [facility] 10-03-2023 17:17-0500 SaO2% (BldA) [Mass fraction] 92 % [facility] 10-03-2023 16:47-0500 Heart rate 87 /min [facility] 10-03-2023 16:47-0500 SaO2% (BldA) [Mass fraction] 91 % [facility] 10-03-2023 16:46-0500 Body temperature 98.24 [degF] [facility] 10-03-2023 16:46-0500 Diastolic blood pressure 71 mm[Hg] [facility] 10-03-2023 16:46-0500 Mean blood pressure 98 mm[Hg] [facility] 10-03-2023 16:46-0500 Systolic blood pressure 151 mm[Hg] [facility] 10-03-2023 11:54-0500 Heart rate 90 /min [facility] 10-03-2023 11:54-0500 Diastolic blood pressure 76 mm[Hg] [facility] 10-03-2023 11:54-0500 Mean blood pressure 101 mm[Hg] [facility] 10-03-2023 11:54-0500 Systolic blood pressure 153 mm[Hg] [facility] 10-03-2023 11:53-0500 Body temperature 97.34 [degF] [facility] 10-03-2023 08:00-0500 Body temperature 98.42 [degF] [facility] 10-03-2023 01:36-0500 Body temperature 98.6 [degF] [facility] 10-03-2023 01:36-0500 Mean blood pressure 105 mm[Hg] [facility] 10-03-2023 01:36-0500 Respiratory rate 16 /min [facility] 10-03-2023 00:47-0500 Body temperature 98.78 [degF] [facility] 10-03-2023 00:47-0500 Mean blood pressure 112 mm[Hg] [facility] 10-03-2023 00:47-0500 Respiratory rate 18 /min [facility] 10-02-2023 20:55-0500 Body temperature 98.6 [degF] [facility] 10-02-2023 20:00-0500 Blood Pressure Location [facility] 10-02-2023 00:35-0500 Respiratory rate 18 /min [facility] 10-01-2023 19:26-0500 Blood Pressure Location [facility] 10-01-2023 19:26-0500 Mean blood pressure 97 mm[Hg] [facility] 10-01-2023 13:22-0500 Heart rate 76 /min [facility] 09-30-2023 17:49-0500 Body temperature 98.42 [degF] [facility] 09-30-2023 17:49-0500 Respiratory rate 13 /min [facility] 09-30-2023 17:35-0500 Respiratory rate 14 /min [facility] 09-30-2023 17:30-0500 Respiratory rate 14 /min [facility] 09-30-2023 17:20-0500 Body temperature 97.16 [degF] [facility] 09-29-2023 21:53-0500 Heart rate 86 /min [facility] 09-29-2023 16:28-0500 Heart rate 76 /min [facility] Encounters Encounter Date Encounter Type Care Provider Facility Start: 02-24-2024 End: 02-24-2024 ambulatory Carmen Brodie Facility:[facility] Start: 02-24-2024 End: 02-24-2024 ambulatory PHYSICIAN NO [facility] Work Phone: Start: 02-24-2024 End: 02-24-2024 Departed Referred PHYSICIAN [facility] Path [facility] Start: 12-15-2023 End: 12-16-2023 Pre-admission assessment Mhd Yaindu Al-Marrawi [facility] Start: 12-04-2023 ambulatory [facility] Start: 12-04-2023 End: 12-05-2023 ambulatory King Talal Sarmini [facility] Start: 12-04-2023 End: 02-17-2024 Pre-admission assessment King Talal Sarmini [facility] Start: 12-04-2023 End: 12-04-2023 Patient encounter procedure Fernando Bucio [facility] Start: 11-04-2023 End: 11-05-2023 ambulatory Mhd Yaser Al-Marrawi Facility:[facility] Start: 11-04-2023 End: 11-04-2023 Patient encounter procedure Mhd Yaser Al-Marrawi [facility] Start: 11-01-2023 End: 11-02-2023 ambulatory Mhd Yaser Al-Marrawi Facility:[facility] Start: 11-01-2023 End: 11-01-2023 Patient encounter procedure Mhd Yaser Al-Marrawi [facility] Start: 10-28-2023 End: 10-29-2023 ambulatory Mhd Yaser Al-Marrawi Facility:[facility] Start: 10-22-2023 End: 10-22-2023 ambulatory VINOD QUINTEROS Not Available Start: 10-21-2023 End: 10-22-2023 ambulatory Mhd Yaser Al-Marrawi Facility:[facility] Start: 10-21-2023 End: 10-21-2023 Patient encounter procedure Mhd Yaser Al-Marrawi [facility] Start: 10-20-2023 End: 10-21-2023 ambulatory Mhd Yaser Al-Marrawi Facility:[facility] Start: 10-20-2023 End: 10-20-2023 Patient encounter procedure Mhd Yaser Al-Marrawi [facility] Start: 10-17-2023 End: 10-18-2023 ambulatory Mhd Yaser Al-Marrawi Facility:[facility] Start: 10-09-2023 Patient encounter procedure Chapo Oshea APRN.TEXTILE SCIENCE TECHNICIAN Work Phone: [facility] Start: 10-09-2023 Progress Note Chapo MOYER RN.TEXTILE SCIENCE TECHNICIAN Work Phone: [facility] Department Start: 10-08-2023 End: 10-08-2023 ambulatory VINOD D DOLCE Not Available Start: 10-06-2023 Patient encounter procedure Kandy Greenwood Work Phone: [employer] [employer] Start: 10-06-2023 Progress Note Itri Dede Timo Work Phone: [facility] [facility] [employer] Start: 09-29-2023 End: 10-04-2023 Evaluation and management of inpatient Ryan Tenorio Facility:[facility] Start: 09-29-2023 End: 09-29-2023 ambulatory VINOD D DOLCE Not Available Start: 09-29-2023 End: 10-03-2023 Evaluation and management of inpatient Sonya Dee [facility] Immunizations Immunization Date Immunization Notes Care Provider Fa cility NEGATED: Highlighted row has not occurred!12-03-2023 influenza virus vaccine, unspecified formulation Fernando Bucio [facility] Payers Date Payer Category Payer Self-pay 2023 Medicare [id number] 2010 Medicare [id number] 2008 Medicare MEDICARE MEDICAR E A AND B [id number] 2008-Present [phone] [place] [address] Medicare [id number] 1940 Unknown [id number] 9 1942 Unknown [id number] 9 1942 Unknown [id number] [id number] 9 1942 Unknown [id number] [id number] 1942 Unknown [id number] [id number] 1942 Unknown [id number] [id number] 1942 Unknown [id number] [id number] 1942 Unknown [id number] [id number] 1942 Unknown [id number] [id number] 1942 Unknown [id number] [id number] 1942 Unknown [id number] [id number] Social History Date Type Detail Facility Start: 09-29-2023 End: 12-04-2023 Tobacco smoking status Ex-smoker (finding) [facility] Sex Assigned At Male [facility] Tobacco smoking status [facility] Tobacco smoking consumption unknown [facility] Start: 1940 Sex Assigned At Not on file C [facility] Tobacco smoking status Never [facility] Start: 1940 Sex Assigned At [facility] Functional Status Date Assessment Result Facility 12-04-2023 Functional Status N/A [facility] 09-29-2023 Functional Status N/A [facility] 09-29-2023 Functional Status [facility] Clinical Notes 09-30-2023 to 11-18-2023 Chapo Champion APRN.TEXTILE SCIENCE TECHNICIAN - 10/09/2023 12:00 AM Kandy Rios A - 10/06/2023 12:00 AM EST Note Date & Type Note Facility 11-18-2023 Evaluation + Plan note Future Scheduled TestsCBC w/ Auto Diff 11/18/23CBC w/ Auto Diff 12/02/23CBC w/ Auto Diff 12/16/23Comprehensive Metabolic Panel 11/18/23Comprehensive Metabolic Panel 12/02/23Comprehensive Metabolic Panel 12/16/23Ferritin 12/15/23Iron Level 12/15/23Iron Percent Saturation 12/15/23Transferrin 12/15/23 [facility] 10-22-2023 Note HNO ID: [id number] Author: Chapo Ohsea APRN.TEXTILE SCIENCE TECHNICIAN Service: ? Author Type: Nurse Specialist Type: Progress Notes Filed: 10/28/2023 8:19 AM Note Text: [facility] NOTE NAME: NATTY GRIMALDO NO.: [id number] DATE OF SERVICE: 10/22/2023 [facility] DATE OF : 1940 REASON FOR VISIT: The patient is a resident of [facility]. This is a skilled visit for cellulitis [...] as needed. DICTATED BY: YINA Carlisle JOB# [id number] cc: [facility] 10-14-2023 Note HNO ID: [id number] Author: Chapo Oshea APRN.TEXTILE SCIENCE TECHNICIAN Service: ? Author Type: Nurse Specialist Type: Progress Notes Filed: 10/16/2023 7:48 AM Note Text: [facility] NOTE NAME: NATTY GRIMALDO NO.: [id number] DATE OF SERVICE: 10/14/2023 [facility] DATE OF : 1940 REASON FOR VISIT: The patient is resident of [facility]. This is a skilled visit for cellulitis [...] therapy services. DICTATED BY: YINA Carlisle JOB# [id number] cc:DR [facility] 10-13-2023 Note Admission and Discha rge Information [...] surgery scheduled for 09/30, [facility] at [facility] Consult to Infectious Disease Physician - Ordered -- 09/30/23 13:24:00 EST, ivabx, Consult and Co-manage Consult to Nephrology - Ordered -- 09/30/23 11:02:00 EST, JOSELINE? CKD, Consult and Co-manage Consult to Vocational Counselor - Ordered -- 09/29/23 19:45:00 EST, Left foot abscess, Dr Quinteros aware, Consult and Co-manage [employer] Consultant Consult - Completed -- 10/01/23 10:11:00 EST, [...] E9/L Lymph Abs Man - 0.3 E9/L Searcy Abs Man - 1.3 E9/L Eos Abs Man - 0.0 E9/L Basophil Abs Man - 0.5 E9/L Automated Diff (10/03/2023) Neutro Auto - 80.8 % Lymph Auto - 3.0 % Searcy Auto - 13.4 % Eos Auto - 1.1 % Basophil Auto - 1.7 % Neutro Absolute - 17.8 E9/L Lymph Absolute - 0.7 E9/L Searcy Absolute - 2.9 E9/L Eos Absolute - [...] Ratio - 1 (more content not included)... [facility] Comment on above: Result Comment: Elec tronically Signed By: Keyon ANAYA, Raiza\.br\Date and Time Signed: 10/13/23 10:31 EST 10-09-2023 Note HNO ID: [id number] Author: Chapo Oshea APRN.TEXTILE SCIENCE TECHNICIAN Service: ? Author Type: Nurse Specialist Type: Progress Notes Filed: 10/14/2023 7:39 AM Note Text: [facility] NOTE NAME: NATTY GRIMALDO NO.: [id number] DATE OF SERVICE: 10/09/2023 [facility] DATE OF : 1940 REASON FOR VISIT: The patient is a resident of [facility]. This is a skilled visit for cellulitis [...] therapy services. DICTATED BY: YINA Carlisle JOB# [id number] cc:DR Reynaldo Galeano [facility] 10-09-2023 History of Present illness Narrative [facility] NOTE NAME: NATTY GRIMALDO NO.: [id number] DATE OF SERVICE: 10/09/2023 [facility] DATE OF : 1940 REASON FOR VISIT: The patient is a resident of [facility]. This is a skilled visit for cellulitis [...] therapy services. DICTATED BY: YINA Carlisle/Oscar JOB# [id number] cc:DR [facility] documented in this encounter [facility] 10-06-2023 Note Microbiology PROCEDURE: Blood Culture Charcoal [R1] SOURCE: Blood BODY SITE: Arm L COLLECTED DATE/TIME: 09/29/2023 17:13 EST RECEIVED DATE/TIME: 09/29/2023 17:51 EST START DATE/TIME: 09/29/2023 17:51 EST FREE TEXT SOURCE: Alondra Camarena PA-C. Nicol JACOBSON, Alondra Arenas FINAL REPORTS Final Report [] Verified Date/Time: 10/06/2023 18:00 EST No growth at 7 days. Performing Locations R1: This test was performed at: [facility], [address] [place] [address], [id number] [place] [address], [facility] Comment on above: Performed By: #### 2 [id number], [id number] #### [facility] [address] [place] [id number] 10-06-2023 Note Microbiology PROCEDURE: Blood Culture Charcoal [R1] SOURCE: Blood BODY SITE: Arm R COLLECTED DATE/TIME: 09/29/2023 17:11 EST RECEIVED DATE/TIME: 09/29/2023 17:52 EST START DATE/TIME: 09/29/2023 17:52 EST FREE TEXT SOURCE: IV start Alondra Camarena PA-C, PA-C, Jenna E. FINAL REPORTS Final Report [] Verified Date/Time: 10/06/2023 18:00 EST No growth at 7 days. Performing Locations R1: This test was performed at: [facility], [address] [place] [address], [id number], [facility] Comment on above: Performed By: #### 2 [id number] #### [facility] [address] [place] [id number] 10-06-2023 Note HNO ID: [id number] Author: Kandy Greenwood Service: ? Author Type: Physician Type: Progress Notes Filed: 10/07/2023 5:39 PM Note Text: [facility] NOTE NAME: NATTY GRIMALDO NO.: [id number] DATE OF SERVICE: 10/06/2023 [facility] DATE OF : 1940 New Patient History and Physical HISTORY OF PRESENT ILLNESS: The patient is an 82-year-old male who was admitted to us from [facility] with the diagnosis of status post incision [...] therapy. DICTATED BY: MD BLAYNE Osborn/Oscar JOB# [id number] cc:DR Reynaldo Galeano [facility] 10-06-2023 History of Present illness Narrative [facility] NOTE NAME: NATTY GRIMALDO NO.: [id number] DATE OF SERVICE: 10/06/2023 [facility] DATE OF : 1940 New Patient History and Physical HISTORY OF PRESENT ILLNESS: The patient is an 82-year-old male who was admitted to us from [facility] with the diagnosis of status post incision [...] therapy. DICTATED BY: MD BLAYNE Osborn/Oscar JOB# [id number] cc:DR [facility] documented in this encounter [facility] 10-03-2023 Evaluation + Plan note Extrac lenny from: Title:Acute Renal Failure * Author:Helen ANAYA, Zhang nil Date:10/03/23 Impression and Plan 1. JOSELINE with unknown baseline Cr likely from left foot abscess. This is likely ATN. UA with 1+ protein. Cr peak at 1.8mg/dl on admission and is now improved to 1.3 mg/dL. Ct appears to show Rt kidney cyst. No significant urinary tract calculi or hydronephrosis. -No need for HAT DESIGNER at this time. May stop NS. Nonoliguric. [...] ate:10/03/23 Stable Discharge To, Anticipated II - Residential Unit Discharged to - Home independently Prescriptions [...] With When Contact Information Luis Snowden [address] [place] [address]- [phone] Business (1) Additional Instructions: Establish care Mhd Lashanda Additional Instructions: Thrombocytosis Fernando Bucio [address], [address] [facility] [address] [place] [address]- [phone] Business (1) Additional Instructions: CHENG Cervantes [facility] [address] [place] [address]- Business (1) Additional Instructions: CKD [employer] Additional Instructions: Vinod Quinteros Within 5 to 7 days [facility] [address] [place] [address]- 0 Business (1) Additional Instructions: Flor - [...] tract calculi or hydronephrosis. -No need for HAT DESIGNER at this time. May reduce NS to [...] bear with post op shoe agree with alf until antibiotics are completed with picc line pending ID recs -pt will be seen post op in office next week. -dressing can be changed before discharge to alf apply betadine to sutures gauze kerlix and celia with post op shoe Extracted from: Title:Acute Renal Failure * Author:Leatha Cervantes MD Date:10/01/23 Impression and Plan 1. JOSELINE with unknown baseline Cr: Likely from left foot abscess. UA with 1+ protein. Cr stable at 1.8mg/dl since admission. Ct appears to show R kidney cyst. No significant urinary tract calculi or hydronephrosis. -No need for HAT DESIGNER at this time. May reduce NS to [...] tract calculi or hydronephrosis. -No need for HAT DESIGNER at this time. -UA and PCR ordered. [...] Location:FT.ONCOLOGY Appointment Type:ONC Office Visit 30 (FT) [facility]12-01-2023 NoteMicrobiology PROCEDURE: Wound Culture [R1] SOURCE: Fluid [...] Locations R1: This test was performed at: [facility], [address] [place] [address], [id number] [place] [address], [address] [place], [place] [address]Comment on above:Performed By: #### [id number] #### [facility] [address] [place] [address] [id number] NoteMicrobiology PROCEDURE: Wound Culture [R1] SOURCE: Fluid [...] Locations R1: This test was performed at: [facility], [address] [place] [address], [id number] [place] [address], [address] [place], [place] [address]Comment on above:Performed By: #### [id number], [id number] #### [facility] [address] [place] [address] [id number] NoteEchocardiology Procedure Exam Date/Time Accession # Ordering Echo Transthoracic 10/02/2023 15:51 EST [id number] Keyon ANAYA, [facility] Complete CPT code 54350 Reason for Exam (Echo Transthoracic Complete) Dyspnea Report [address] [address] Adult Echocardiogram Report Name: VIKAS GRIMALDO Study Date: 10/02/2023 03:16 PM BP: 147/66 mmHg Patient Location: [address] [place] [address] HR: 85 : 1940 Gender: Male Height: [...] Signed by: Abhishek Arnold MD Transcribed by: GA Technologist: [facility]YAt[facility] Health Unionkelsey [facility]11-30-2023 Note CRM entered the room to discuss dc planning. PCP, DME and insurance discussed. Patient is alert andinvolved in plan of care. Contact information provided and whiteboard updated. [facility] has accepted. 3MN stay has been completed. Pending wound cxs. ANt dc TBD. CRM to follow. Pt will transport by dwight Rene [facility]:Result Comment: Electronically Signed By: Agatha Brady.sandra\Date and Time Signed: 10/02/23 11:21 [id number] Hospital Discharge instructions Follow Up Care 10/02/2023 07:56:09 With:Orlando Pyle Address: [facility] [place] [address] [phone] Business (1) When: Unknown Comments:- CBC today [...] weeks in office with iron studies prior. [facility]11-29-2023 NotePT Evaluation completed with an [facility] score of 17/24. Pt was able to perform bed mobility with Mod I and transfers with CGA to Min A. Pt had a mild LOB episode upon standing. Pt was able to ambulate with FWW, but a short distance. [facility] NoteCRM entered the room to discuss dc [...] IV atx are required. Therapies to be added.[facility]:Result Comment: Electronically Signed By: Agatha Brady\.br\Date and Time Signed: 10/01/23 11:20 [id number] Hospital Discharge instructions Patient Education 09/30/2023 17:23:43 Flor - Post Operative Instructions (Revised 06/30/14) (Custom) [place], [place] Vinod Quinteros DPM, FACRY POST OPERATIVE [...] feel free to call the doctor at: [phone] or [phone] Quinteros paged. Patient signatureDate Dr. Vinod Quinteros DPM, FACFASDate Revised: 12-11 Follow Up Care 09/29/2023 16:21:37 With:Luis Snowden Address: [address] [place] [address]- [phone] Business (1) When: Unknown Comments:Establish care With:Orlando Pyle Address:Unknown When: Unknown Comments:Thrombocytosis With:Fernando Bucio Address: [address] [facility], [address] [phone] Business (1) When: Unknown Comments:CHENG With:Manav Cervantes Address: [facility] [address] [place] [address]- Business (1) When: Unknown Comments:CKD With:[employer] Address:Unknown When: Unknown With:Vinod Quinteros Address: [facility] [address] [place] [address]- 0 Business (1) When:[address] [facility]11-28-2023 Note [id number] [facility] 09-30-2023 NoteCRM entered the room to discuss dc planning. PCP, DME and insurance discussed. Patient is alert andinvolved in plan of care. Contact information provided and whiteboard updated. Pt will have surgerytoday at 3pm. Pending Oncology and SW. Medicare Rights form discussed and copy provided. Ant dc TBD. Pt is current with Dr Quinteros.[facility] Hospital[facility] above: Result Comment: Electronically Signed By: Agatha Brady.sandra\Date and Time Signed: 09/30/23 10:14 [id number] NoteChief Complaint pt reports left foot infection [...] an ASA at nighttime for pain. Previously [id number] creatinine was normal. Patient also with severely [...] Lymph Abs Man: 1.7 E9/L (09/29/23 17:13:00) [place] Abs Man: 1.9 E9/L High (09/29/23 17:13:00) [...] gm/dL (09/29/23 17:13:00) A (more content not included)...[facility] Result Comment: Electronically Signed By: [...] Date:12/04/2023 12:15:00 PM Scheduled Provider:Fernando Bucio MD Location:[facility] [facility] Dig[facility]ive Health Appointment Type:[facility] Follow Up Appointment Date:12/15/2023 02:00:00 PM Scheduled [facility]: [facility] Office Visit 30 (FT) Future [...] Iron Percent Saturation 12/15/23 * Transferrin 12/15/23 [facility] Future Appointments Appointment Date:10/24/2023 01:45:00 PM Scheduled Provider: [facility] Type:PT Eval (FT) Appointment Date:10/28/2023 11:00:00 AM Scheduled Provider: Location:.ONCOLOGY Appointment Type:ONC Venofer (FT) Appointment Date:11/04/2023 10:00:00 AM Scheduled Provider: Location:.ONCOLOGY Appointment Type:ONC Venofer (FT) Appointment Date:11/04/2023 01:00:00 PM Scheduled Provider: [facility] Type:ONC Misc Treatment (FT) Appointment Date:11/11/2023 11:00:00 AM Scheduled Provider: Location:.ONCOLOGY Appointment Type:ONC Venofer (FT) Appointment Date:12/04/2023 12:15:00 PM Scheduled Provider:Fernando Bucio MD Location:[facility] [place] Digestive Health Appointment Type:[facility] Follow Up Appointment Date:12/15/2023 02:00:00 PM Scheduled [...] Iron Percent Saturation 12/15/23 * Transferrin 12/15/23 [facility] Future Appointments Appointment Date:11/04/2023 10:00:00 AM Scheduled Provider: [facility] Type:ONC Venofer (FT) Appointment Date:11/04/2023 01:00:00 PM Scheduled Provider: [facility] Type:ONC Misc Treatment (FT) Appointment Date:11/11/2023 11:00:00 AM Scheduled Provider: [facility] Type:ONC Venofer (FT) Appointment Date:12/04/2023 12:15:00 PM Scheduled Provider:Fernando Bucio MD Location:[facility] [place] Digestive Health Appointment Type:[facility] Follow Up Appointment Date:12/15/2023 02:00:00 PM Scheduled Provider: [facility] Type:ONC Office Visit 30 (FT) Future Scheduled Tests Laboratory* CBC w/ Auto Diff 11/18/23 * CBC w/ Auto Diff 12/02/23 * CBC w/ Auto Diff 12/16/23 * Comprehensive Metabolic Panel 11/18/23 * Comprehensive Metabolic Panel 12/02/23 * Comprehensive Metabolic Panel 12/16/23 * Ferritin 12/15/23 * Iron Level 12/15/23 * Iron Percent Saturation 12/15/23 * Transferrin 12/15/23 [facility] Future Appointments Appointment Date:11/18/2023 01:00:00 PM Scheduled Provider: [facility] Type:ONC Misc Treatment (FT) Appointment Date:12/02/2023 10:00:00 AM Scheduled Provider: [facility] Type:ONC Misc Treatment (FT) Appointment Date:12/04/2023 12:15:00 PM Scheduled Provider:Fernando Bucio MD Location:[facility] [place] Digestive Health Appointment Type:BAD Follow Up Appointment Date:12/15/2023 02:00:00 PM Scheduled Provider: [facility] Type:ONC Office Visit 30 (FT) Future Scheduled Tests Laboratory* CBC w/ Auto Diff 11/18/23 * CBC w/ Auto Diff 1/30/24 * CBC w/ Auto Diff 12/16/23 * Comprehensive Metabolic Panel 11/18/23 * Comprehensive Metabolic Panel 12/02/23 * Comprehensive Metabolic Panel 12/16/23 * Ferritin 12/15/23 * Iron Level 12/15/23 * Iron Percent Saturation 12/15/23 * Transferrin 12/15/23 [facility] Future Appointments Appointment Date:12/15/2023 02:00:00 PM Scheduled Provider:Lashanda ANAYA, Orlando Caballero Location:.ONCOLOGY Appointment Type:ONC Office Visit 30 (FT) Appointment Date:02/16/2024 12:00:00 PM Scheduled Provider: Location:[facility] Appointment Type:Surgery FT Future Scheduled Tests Laboratory* CBC w/ Auto Diff 11/18/23 * CBC w/ Auto Diff 12/02/23 * CBC w/ Auto Diff 12/16/23 * Comprehensive Metabolic Panel 11/18/23 * Comprehensive Metabolic Panel 12/02/23 * Comprehensive Metabolic Panel 12/16/23 * Ferritin 12/15/23 * Iron Level 12/15/23 * Iron Percent Saturation 12/15/23 * Transferrin 12/15/23 [facility] Digestive Health Evaluation + Plan note Future Appointments Appointment Date:02/16/2024 12:00:00 PM Scheduled Provider: Location:[facility] Appointment Type:Surgery FT Future Scheduled Tests Laboratory* CBC w/ Auto Diff 11/18/23 * CBC w/ Auto Diff 12/02/23 * CBC w/ Auto Diff 12/16/23 * Comprehensive Metabolic Panel 11/18/23 * Comprehensive Metabolic Panel 12/02/23 * Comprehensive Metabolic Panel 12/16/23 * Ferritin 12/15/23 * Iron Level 12/15/23 * Iron Percent Saturation 12/15/23 * Transferrin 12/15/23 [facility] noteNo assessment information available [facility] Work Phone: Hospital course Narrative No data available for this section [facility] Dis[facility] instructions No data available for this section [facility] No data available for this section [facility] Summary Purpose Family History No Family History [...] or prosecute any alcohol or drug abuse patient.[facility]In the event this information is protected by the Federal Confidentiality of Alcohol and Drug Abuse Patient Records regulations: The Federal rules restrict any use of the information to criminally investigate or prosecute any alcohol or drug abuse patient.[facility] (unrecognized sect ion and content) No Status Records FoundNo Status Records FoundNo Status Records FoundNo Status Records Found INFORMATION SOURCE (unrecogn ized section and content) DATE CREATED AUTHOR 10/23/2023 [facility] DATE CREATED AUTHOR AUTHOR'S ORGANIZ ATION 10/30/2023 [facility] DATE CREATED AUTHOR AUTHOR'S ORGANIZ ATION 12/05/2023 [facility] DATE CREATED AUTHOR AUTHOR'S ORGANIZ ATION 03/01/2024 [facility] Goals (unrecognized section and content) [...] BE BASED ON THE PRIMARY CLINICAL RECORDS. [facility]. provides no warranty or guarantee of the accuracy or completeness of information in this document.
[2024-09-17] VITALS (8 sets, daily range): BP systolic 116–158; BP diastolic 59–83; PULSE 77–102; TEMP 36.4–37; O2SAT 93–96; BMI 19.2
[2024-09-17] MEDS: PIPERACILLIN SODIUM/TAZOBACTAM 3.375 GM in 0.9 % SODIUM CHLORIDE 50 ML IV ×3 (02:53→18:30)
--- NOTE | 2024-09-17 06:04 | P.HP_ITS ---
HPI H&P: HPI History of Present Illness Chief complaint: ARM INFECTION, BACK PAIN Narrative: Patient is a very poor historian, presented to the emergency room after a fall, could not really describe when the fall happened could be within the last couple days or more than a week. In the emergency room found of cellulitis of his arm with possible abscess versus hematoma, compression fracture lumbar spine. Patient is admitted for workup and treatment of same I saw patient up on the medical surgical floor, he was resting comfortably in bed, very chatty. Just hard to get a straight story out of him. Does have some arm pain does have some significant back pain. Denies chest pain or shortness of breath. Denies fever or chills. Opioid HPI Opioid Management Most Recent Pain and Opioid Data: Last Pain Scale 5 09/17/24 08:05 09/17/24 Last Pain Assessment 09/17/24 08:05 Last ORT Total Score 0 09/17/24 00:33 09/17/24 Last ORT Risk Category Low Risk 09/17/24 00:33 09/17/24 Review of Systems ROS Status of ROS 10 or more systems reviewed and unremark able except as noted in history and below [facility] Medical History (Updated 09/17/24 @ 07:02 by Destini Celis RN) Thyroid disease ?E07.9 - Disorder of thyroid, unspecified (ICD-10) Family History (Updated 09/17/24 @ 05:52 by Destini Celis RN) Mother Family history of cancer Family history of hypertension Father Family history of hypertension Social History Highest level of school completed/degree received: Bachelor's degree Little interest or pleasure in doing things: not at all Feeling down, depressed, or hopeless: not at all Meds Home Medications and Allergies Home Medications ?Medication ?Instructions ?Recorded ?Confirmed ?Type No Known Home Medications 09/16/24 09/16/24 History Allergies Allergy/AdvReac Type Severity Reaction Status Date / Time No Known Drug Allergies Allergy Verified 09/16/24 18:10 Exam Constitutional Vital Signs, click to edit/add: Last Vital Signs Temp 98.2 F 09/17/24 04:00 Pulse 86 09/17/24 04:00 Resp 18 09/17/24 04:00 BP 158/73 H 09/17/24 04:00 Pulse Ox 94 L 09/17/24 04:00 O2 Del Method Room Air 09/17/24 04:00 Documenting provider has reviewed patient's vital signs: yes Common normals: no apparent distress Lymph Lymphatic: no lymphadenopathy noted; lymphedema noted Chest Common normals: inspection of chest normal and palpation of chest normal Respiratory Common normals: normal respiratory effort, no retractions and no use of accessory muscles Cardio Common normals: regular rate and regular rhythm GI Common normals: Normal to inspection, nondistended, normoactive bowel sounds present and soft to palpation Extremity Common normals: abnormal to inspection (Cellulitis of right upper extremity, large area of swelling) Results Labs Labs: Short CBC 09/16/24 Range/Units 18:32 WBC 41.4 H* (4.0-11.0) 10^3/uL Hgb 13.5 L (14.0-18.0) g/dL Hct 46.9 (42.0-54.0) % Plt Count 3218 H* (150-450) 10^3/uL BMP 09/16/24 18:32 Sodium 140 Potassium 4.0 Chloride 103 Carbon Dioxide 22.2 BUN 28.0 H Creatinine 1.10 Glucose 130 H Calcium 9.0 Cardiac Enzymes 09/16/24 Range/Units 18:32 Total Creatine Kinase 151 (39-308) U/L Liver Function 09/16/24 Range/Units 18:32 Total Bilirubin 1.3 H (0.2-1.0) mg/dL AST 58 H (15-37) U/L ALT 19 (16-63) U/L Alkaline Phosphatase 106 (46-116) U/L Albumin 2.8 L (3.4-5.0) g/dL Urine 09/16/24 Range/Units 21:05 Urine Color Yellow (YELLOW) Urine Clarity Clear (CLEAR) Urine pH 5.5 (5.0-9.0) Ur Specific [place] 1.015 (1.005-1.025) Urine Protein 30 A (NEG/TRACE) mg/dL Urine Glucose (UA) Negative (NEGATIVE) mg/dL ABG ABG results: 09/16/24 18:57 VBG pH 7.470 H VBG pCO2 31.3 L Assessment and Plan Assessment and Plan (1) Closed compression fracture of L1 vertebra: (2) Cellulitis of arm, right: Plan Admission findings: Sinus tachycardia, uncontrolled hypertension, significant leukocytosis, significant thrombocythemia, hyperglycemia, swelling and erythema consistent with cellulitis and possible abscess versus hematoma right upper extremity. Cellulitis of right upper extremity with large area of swelling, consult to general surgery, possible orthopedics, blood cultures pending, continue with current antibiotics, serial labs Polycythemia-patient untreated, sounds like he was tried on treatment in the past and did not tolerate, significant leukocytosis and significant thrombocythemia-Will need lifelong care with platelet platelet therapy but deftly needs to get evaluated and treated as an outpatient with hematology Hyperglycemia-monitor daily Lymphedema-compression hose Hypothyroidism-start patient on oral medication. L1 and L4 compression fracture-consult to spine surgery Mild protein calorie malnutrition-diet management Constipation-start MiraLAX BPH-May need medication, will hold off for now with the new medications as outlined above Atelectasis on chest [id number] denies cough Social situation-concern raised from ER, check with social media project manager later today Admission status: Patient with large area of swelling and cellulitis of right upper extremity, IV biotics will be secondary to greater swelling medically necessary treatment will span 2 midnights. Inpatient status.
[2024-09-17 06:05] LABS: Hematocrit 45.4 % (42.0-54.0); Hemoglobin 13.1 g/dL (14.0-18.0); Mean Corpuscular HGB Conc 28.9 g/dL (29.9-35.2); Mean Corpuscular Hemoglobin 20.2 pg (25.9-34.0); Mean Corpuscular Volume 70.2 fL (80.0-94.0); Mean Platelet Volume 9.3 fL (9.5-13.5); Red Blood Count 6.47 10^6/uL (4.70-6.10)
[2024-09-17 06:19] LABS: Alanine Aminotransferase 14 U/L (16-63); Albumin Globulin Ratio 0.8; Albumin Level 2.4 g/dL (3.4-5.0); Alkaline Phosphatase 90 U/L (46-116); Anion Gap 11.5; Aspartate Amino Transferase 27 U/L (15-37); Bilirubin Total 1.5 mg/dL (0.2-1.0); Calcium 8.9 mg/dL (8.5-10.1); Carbon Dioxide 24.2 mmol/L (21.0-32.0); Chloride 106 mmol/L (98-107); Estimated GFR (African America >60 (>=60 mL/min/1.73m^2); Estimated GFR (Non-African Ame >60 (>=60 mL/min/1.73m^2); Globulin 2.9 g/dL; Glucose 90 mg/dL (74-106); Potassium 3.7 mmol/L (3.5-5.1); Sodium 138 mmol/L (136-145); Total Protein 5.3 g/dL (6.4-8.2)
[2024-09-17 06:22] LABS: Platelet Count 2842 10^3/uL (150-450); White Blood Count 33.3 10^3/uL (4.0-11.0)
[2024-09-17 06:33] LABS: Lymphocytes Absolute Manual 0.99 10^3/uL (1.20-3.80); Monocytes Absolute Manual 2.33 10^3/uL (0.30-0.80)
[2024-09-17 06:34] LABS: Basophils Abs Manual 0.33 10^3/uL (0.00-0.10); Eosinophils Absolute Manual 0.33 10^3/uL (0.00-0.70)
[2024-09-17 06:35] LABS: Nucleated Red Blood Cells 4
[2024-09-17 06:36] LABS: Anisocytosis 2+; Hypochromasia 1+; Polychromasia 1+
[2024-09-17] MEDS: VANCOMYCIN HCL 750 MG in 0.9 % SODIUM CHLORIDE 250 ML 250 MG IV ×2 (08:19→21:47)
--- NOTE | 2024-09-17 08:28 | CM.NOTE ---
Rounds made with Dr. Coello, awaiting surgical consult. No discharge today. NPO status until general surgery evaluates pt.
--- NOTE | 2024-09-17 08:49 | PM.GSCN ---
History of Present Illness Consult details Consult date: 09/17/24 Narrative: 83 yo M presents with main complaint of back pain for over a week. He was also noted to have significant swelling of his RUE. He has polycythemia vera and is on ASA 325mg daily. He is unfortunately a poor historian. He said his right arm has been possibly swollen for over a week. He has bruising on his LUE he is unaware of how he got. He is not sure when his back started hurting exactly but it has made is day to day activities harder. He denies alcohol, tobacco or other illicit drug use. Denies any current f/c, n/v, sob or chest pain. Review of Systems ROS Status of ROS 10 or more systems reviewed and unremarkable except as noted in history and below [facility] Medical History (Updated 09/17/24 @ 07:02 by Destini Celis RN) Thyroid disease ?E07.9 - Disorder of thyroid, unspecified (ICD-10) Family History (Updated 09/17/24 @ 05:52 by Destini Celis RN) Mother Family history of cancer Family history of hypertension Father Family history of hypertension Social History Highest level of school completed/degree received: Bachelor's degree Little interest or pleasure in doing things: not at all Feeling down, depressed, or hopeless: not at all Meds Home Medications and Allergies Home Medications ?Medication ?Instructions ?Recorded ?Confirmed ?Type No Known Home Medications 09/16/24 09/16/24 History Allergies Allergy/AdvReac Type Severity Reaction Status Date / Time No Known Drug Allergies Allergy Verified 09/16/24 18:10 Exam Narrative Exam Narrative: General: awake, alert, no distress, thin/ malnourished Head: normocephalic, atraumatic Neck: supple, no tracheal deviation Heart: RRR Lungs: equal chest rise and fall, non labored breathing Abdomen: soft, non tender, no rebound or guarding Extremities: entire RUE grossly swollen from deltoid region to hand with significant lymphedema present along with upper medial extremity erythema, cellulitic changes noted, small 1cm superficial abrasion/ulceration noted of mid right volar forearm, no fluctuance or crepitus noted but firmness appreciated of mid forearm up to brachial region, no concern for compartment syndrome at this time, sensation intact, limited ROM due to swelling, no cyanosis Skin: bruising noted over body of varying ages, LUE mid bicep region with bruises, right forearm lesion/abrasion described above Psychological: no apparent speech or mood disorder, appropriate for encounter Constitutional Vital Signs, click to edit/add: Last Vital Signs Temp 98.6 F 09/17/24 08:05 Pulse 81 09/17/24 08:05 Resp 16 09/17/24 08:05 BP 154/74 H 09/17/24 08:05 Pulse Ox 93 L 09/17/24 08:05 O2 Del Method Room Air 09/17/24 08:05 Results Labs Labs: Abnormal lab results 09/16/24 09/16/24 09/16/24 Range/Units 18:32 18:57 19:23 WBC 41.4 H* (4.0-11.0) 10^3/uL RBC 6.65 H (4.70-6.10) 10^6/uL Hgb 13.5 L (14.0-18.0) g/dL MCV 70.5 L (80.0-94.0) fL MCH 20.3 L (25.9-34.0) pg MCHC 28.8 L (29.9-35.2) g/dL RDW 25.1 H (11.0-15.0) % Plt Count 3218 H* (150-450) 10^3/uL MPV 9.4 L (9.5-13.5) fL Seg Neuts % (Manual) 90.0 H (43.0-75.0) Lymphocytes % (Manual) 2.0 L (20.5-60.0) % Eosinophils % (Manual) 0.0 L (0.9-7.0) % Neutrophils # (Manual) 37.26 H (1.4-6.5) 10^3/uL Band Neutrophils # 0.8 H (0.0-0.3) 10^3/uL Lymphocytes # (Manual) 0.82 L (1.20-3.80) 10^3/uL Monocytes # (Manual) 2.07 H (0.30-0.80) 10^3/uL Basophils # (Manual) 0.41 H (0.00-0.10) 10^3/uL PT 13.2 H (9.0-11.6) sec VBG pH 7.470 H (7.330-7.430) VBG pCO2 31.3 L (40.0-52.0) mmHg BUN 28.0 H (7.0-18.0) mg/dL Glucose 130 H (74-106) mg/dL Total Bilirubin 1.3 H (0.2-1.0) mg/dL AST 58 H (15-37) U/L ALT (16-63) U/L C-Reactive Protein 6.16 H (<=0.50) mg/dL Total Protein 6.0 L (6.4-8.2) g/dL Albumin 2.8 L (3.4-5.0) g/dL TSH 24.135 H (0.358-3.740) uIU/mL Free T4 0.69 L (0.76-1.46) ng/dL Free T3 1.07 L (2.18-3.98) pg/mL Urine Protein (NEG/TRACE) mg/dL Urine Ketones (NEGATIVE) mg/dL 09/16/24 09/17/24 Range/Units 21:05 05:53 WBC 33.3 H* (4.0-11.0) 10^3/uL RBC 6.47 H (4.70-6.10) 10^6/uL Hgb 13.1 L (14.0-18.0) g/dL MCV 70.2 L (80.0-94.0) fL MCH 20.2 L (25.9-34.0) pg MCHC 28.9 L (29.9-35.2) g/dL RDW 25.0 H (11.0-15.0) % Plt Count 2842 H* (150-450) 10^3/uL MPV 9.3 L (9.5-13.5) fL Seg Neuts % (Manual) 88.0 H (43.0-75.0) Lymphocytes % (Manual) 3.0 L (20.5-60.0) % Eosinophils % (Manual) (0.9-7.0) % Neutrophils # (Manual) 29.30 H (1.4-6.5) 10^3/uL Band Neutrophils # (0.0-0.3) 10^3/uL Lymphocytes # (Manual) 0.99 L (1.20-3.80) 10^3/uL Monocytes # (Manual) 2.33 H (0.30-0.80) 10^3/uL Basophils # (Manual) 0.33 H (0.00-0.10) 10^3/uL PT (9.0-11.6) sec VBG pH (7.330-7.430) VBG pCO2 (40.0-52.0) mmHg BUN 22.0 H (7.0-18.0) mg/dL Glucose (74-106) mg/dL Total Bilirubin 1.5 H (0.2-1.0) mg/dL AST (15-37) U/L ALT 14 L (16-63) U/L C-Reactive Protein (<=0.50) mg/dL Total Protein 5.3 L (6.4-8.2) g/dL Albumin 2.4 L (3.4-5.0) g/dL TSH (0.358-3.740) uIU/mL Free T4 (0.76-1.46) ng/dL Free T3 (2.18-3.98) pg/mL Urine Protein 30 A (NEG/TRACE) mg/dL Urine Ketones Trace A (NEGATIVE) mg/dL Diabetes panel 09/16/24 09/17/24 Range/Units 18:32 05:53 Sodium 140 138 (136-145) mmol/L Potassium 4.0 3.7 (3.5-5.1) mmol/L Chloride 103 106 (98-107) mmol/L Carbon Dioxide 22.2 24.2 (21.0-32.0) mmol/L BUN 28.0 H 22.0 H (7.0-18.0) mg/dL Creatinine 1.10 1.10 (0.70-1.30) mg/dL Glucose 130 H 90 (74-106) mg/dL Calcium 9.0 8.9 (8.5-10.1) mg/dL AST 58 H 27 (15-37) U/L ALT 19 14 L (16-63) U/L Alkaline Phosphatase 106 90 (46-116) U/L Total Protein 6.0 L 5.3 L (6.4-8.2) g/dL Albumin 2.8 L 2.4 L (3.4-5.0) g/dL Thyroid panel 09/16/24 Range/Units 18:32 TSH 24.135 H (0.358-3.740) uIU/mL Calcium panel 09/16/24 09/17/24 Range/Units 18:32 05:53 Calcium 9.0 8.9 (8.5-10.1) mg/dL Albumin 2.8 L 2.4 L (3.4-5.0) g/dL Pituitary panel 09/16/24 09/17/24 Range/Units 18:32 05:53 Sodium 140 138 (136-145) mmol/L Potassium 4.0 3.7 (3.5-5.1) mmol/L Chloride 103 106 (98-107) mmol/L Carbon Dioxide 22.2 24.2 (21.0-32.0) mmol/L BUN 28.0 H 22.0 H (7.0-18.0) mg/dL Creatinine 1.10 1.10 (0.70-1.30) mg/dL Glucose 130 H 90 (74-106) mg/dL Calcium 9.0 8.9 (8.5-10.1) mg/dL TSH 24.135 H (0.358-3.740) uIU/mL Adrenal panel 09/16/24 09/17/24 Range/Units 18:32 05:53 Sodium 140 138 (136-145) mmol/L Potassium 4.0 3.7 (3.5-5.1) mmol/L Chloride 103 106 (98-107) mmol/L Carbon Dioxide 22.2 24.2 (21.0-32.0) mmol/L BUN 28.0 H 22.0 H (7.0-18.0) mg/dL Creatinine 1.10 1.10 (0.70-1.30) mg/dL Glucose 130 H 90 (74-106) mg/dL Calcium 9.0 8.9 (8.5-10.1) mg/dL Total Bilirubin 1.3 H 1.5 H (0.2-1.0) mg/dL AST 58 H 27 (15-37) U/L ALT 19 14 L (16-63) U/L Alkaline Phosphatase 106 90 (46-116) U/L Total Protein 6.0 L 5.3 L (6.4-8.2) g/dL Albumin 2.8 L 2.4 L (3.4-5.0) g/dL All other labs normal. Imaging CT scan - pelvis: report reviewed and image reviewed Additional studies: RUE US reviewed Assessment and Plan Assessment and Plan (1) Closed compression fracture of L1 vertebra: (2) Cellulitis of arm, right: Assessment and Plan: 1. No drainable fluctuance appreciated, PE and US consistent with hematoma, superficial abrasion to be monitored for any spreading or increased erythema. If need for evacuation of forearm hematoma recommend vascular or ortho consult 2. Continue IV antibiotics per primary 3. Wash right forearm twice daily with soap and water and keep the abrasion covered with bacitracin and dry dressing overtop. Consult wound care for following 4. Once cleared for PO intake start aggressive bowel regimen, daily miralax and colace (scheduled), along with possible suppository given extreme stool burden noted on CT 5. No interventions planned at this time from a gen surg stance, defer diet per other services input (primary/vasc/ortho). Contact gen surg as needed. Discussed with primary team and nursing.
--- NOTE | 2024-09-17 11:30 | CM.NOTE ---
Important Message From Medicare discussed with pt, pt verbalizes understanding and signs paper. Original given to pt and copy placed on pt's chart.
[2024-09-17] MEDS: POLYETHYLENE GLYCOL 3350 17 GM POWDER PACKET PO (12:07)
[2024-09-17] MEDS: TRAMADOL HCL 50 MG TABLET PO (12:07)
[2024-09-17] MEDS: ENOXAPARIN SODIUM 40 MG/0.4 ML SYRINGE SUBQ (12:07)
[2024-09-17] MEDS: LIOTHYRONINE SODIUM 5 MCG TABLET 10 MCG PO (12:07)
[2024-09-17] MEDS: ASPIRIN 81 MG TAB.CHEW PO (12:07)
--- NOTE | 2024-09-17 12:33 | SWNOTE1 ---
SW met with pt to discuss dc needs. Pt lives at home alone. Pt talks about his neighbor, Giovanni, who comes to help him as needed. Pt also talks about going outside and getting stuff done outside for the winter. SW asked if he had a fall? He voiced he did not really fall, just was trying to get stuff done and heard a pop. Pt voiced he had a back brace, but he is not sure where it is now, but if he could find it that would help him. SW spoke to him about his discharge plans. SW let him know that rehab was recommended. Pt spoke about a bad experience at [facility] and they locked the doors and would not let him leave. He stated they gave him some medications as well that he did not need. SW expressed that he does not have to go back to the same facility. Pt is not sure at this time and spoke about going to live with a neighbor and getting that back brace. SW then offered at least Home Health services coming in. He stated his home is not suitable for this. Pt would like to think about this and get back to [facility]. SW to stop back in an hour or 2. SW did call Giovanni, pt's friend, and he did not find the back brace. SW did let Giovanni know that it is recommended pt go to SNF, but not sure if pt will agree. Giovanni stated he is going to encourage pt to go SNF,.
--- NOTE | 2024-09-17 12:39 | P.ORCN_ITS ---
History of Present Illness HPI Consult date: 09/17/24 Requesting physician: Adan Coello Chief complaint: ARM INFECTION, BACK PAIN Narrative: Patient is an 83-year-old male that presented yesterday to the emergency department after a fall. Patient is a poor historian so it is unknown how long ago this fall was, but he had presented for multiple complaints, one including back pain after carrying some firewood. Ortho Spine was consulted after imaging had revealed an L1 and L4 compression fracture of unknown age. [facility] Medical History (Updated 09/17/24 @ 07:02 by Destini Celis RN) Thyroid disease ?E07.9 - Disorder of thyroid, unspecified (ICD-10) Family History (Updated 09/17/24 @ 05:52 by Destini Celis RN) Mother Family history of cancer Family history of hypertension Father Family history of hypertension Social History Highest level of school completed/degree received: Bachelor's degree Little interest or pleasure in doing things: not at all Feeling down, depressed, or hopeless: not at all Meds Home Medications and Allergies Home Medications ?Medication ?Instructions ?Recorded ?Confirmed ?Type No Known Home Medications 09/16/24 09/16/24 History Allergies Allergy/AdvReac Type Severity Reaction Status Date / Time No Known Drug Allergies Allergy Verified 09/16/24 18:10 Exam Narrative Exam Narrative: On exam patient is in hospital bed, age-appropriate, and alert. Midline tenderness to palpation of the lumbar spine. 5/5 bilateral lower extremity strength testing. Sensation intact with light touch bilateral lower extremities. Negative clonus bilaterally. Constitutional Vital Signs, click to edit/add: Last Vital Signs Temp 98.6 F 09/17/24 08:05 Pulse 81 09/17/24 08:05 Resp 16 09/17/24 08:05 BP 154/74 H 09/17/24 08:05 Pulse Ox 93 L 09/17/24 11:21 O2 Del Method Room Air 09/17/24 11:21 Results Labs Labs: Abnormal lab results 09/16/24 09/16/24 09/16/24 Range/Units 18:32 18:57 19:23 WBC 41.4 H* (4.0-11.0) 10^3/uL RBC 6.65 H (4.70-6.10) 10^6/uL Hgb 13.5 L (14.0-18.0) g/dL MCV 70.5 L (80.0-94.0) fL MCH 20.3 L (25.9-34.0) pg MCHC 28.8 L (29.9-35.2) g/dL RDW 25.1 H (11.0-15.0) % Plt Count 3218 H* (150-450) 10^3/uL MPV 9.4 L (9.5-13.5) fL Seg Neuts % (Manual) 90.0 H (43.0-75.0) Lymphocytes % (Manual) 2.0 L (20.5-60.0) % Eosinophils % (Manual) 0.0 L (0.9-7.0) % Neutrophils # (Manual) 37.26 H (1.4-6.5) 10^3/uL Band Neutrophils # 0.8 H (0.0-0.3) 10^3/uL Lymphocytes # (Manual) 0.82 L (1.20-3.80) 10^3/uL Monocytes # (Manual) 2.07 H (0.30-0.80) 10^3/uL Basophils # (Manual) 0.41 H (0.00-0.10) 10^3/uL PT 13.2 H (9.0-11.6) sec VBG pH 7.470 H (7.330-7.430) VBG pCO2 31.3 L (40.0-52.0) mmHg BUN 28.0 H (7.0-18.0) mg/dL Glucose 130 H (74-106) mg/dL Total Bilirubin 1.3 H (0.2-1.0) mg/dL AST 58 H (15-37) U/L ALT (16-63) U/L C-Reactive Protein 6.16 H (<=0.50) mg/dL Total Protein 6.0 L (6.4-8.2) g/dL Albumin 2.8 L (3.4-5.0) g/dL TSH 24.135 H (0.358-3.740) uIU/mL Free T4 0.69 L (0.76-1.46) ng/dL Free T3 1.07 L (2.18-3.98) pg/mL Urine Protein (NEG/TRACE) mg/dL Urine Ketones (NEGATIVE) mg/dL 09/16/24 09/17/24 Range/Units 21:05 05:53 WBC 33.3 H* (4.0-11.0) 10^3/uL RBC 6.47 H (4.70-6.10) 10^6/uL Hgb 13.1 L (14.0-18.0) g/dL MCV 70.2 L (80.0-94.0) fL MCH 20.2 L (25.9-34.0) pg MCHC 28.9 L (29.9-35.2) g/dL RDW 25.0 H (11.0-15.0) % Plt Count 2842 H* (150-450) 10^3/uL MPV 9.3 L (9.5-13.5) fL Seg Neuts % (Manual) 88.0 H (43.0-75.0) Lymphocytes % (Manual) 3.0 L (20.5-60.0) % Eosinophils % (Manual) (0.9-7.0) % Neutrophils # (Manual) 29.30 H (1.4-6.5) 10^3/uL Band Neutrophils # (0.0-0.3) 10^3/uL Lymphocytes # (Manual) 0.99 L (1.20-3.80) 10^3/uL Monocytes # (Manual) 2.33 H (0.30-0.80) 10^3/uL Basophils # (Manual) 0.33 H (0.00-0.10) 10^3/uL PT (9.0-11.6) sec VBG pH (7.330-7.430) VBG pCO2 (40.0-52.0) mmHg BUN 22.0 H (7.0-18.0) mg/dL Glucose (74-106) mg/dL Total Bilirubin 1.5 H (0.2-1.0) mg/dL AST (15-37) U/L ALT 14 L (16-63) U/L C-Reactive Protein (<=0.50) mg/dL Total Protein 5.3 L (6.4-8.2) g/dL Albumin 2.4 L (3.4-5.0) g/dL TSH (0.358-3.740) uIU/mL Free T4 (0.76-1.46) ng/dL Free T3 (2.18-3.98) pg/mL Urine Protein 30 A (NEG/TRACE) mg/dL Urine Ketones Trace A (NEGATIVE) mg/dL H & H 09/16/24 09/17/24 Range/Units 18:32 05:53 Hgb 13.5 L 13.1 L (14.0-18.0) g/dL Hct 46.9 45.4 (42.0-54.0) % Coagulation 09/16/24 Range/Units 19:23 INR 1.28 All other labs normal. Assessment and Plan Assessment and Plan (1) Closed compression fracture of L1 vertebra: (2) Cellulitis of arm, right: Plan CT abdomen/pelvis was reviewed and L1 and L4 compression fractures are noted, age-indeterminate. - For the patient's age-indeterminate L1/L4 compression fractures we recommend an LSO brace to be worn when out of bed. - Follow-up with Dr. Cano after discharge from the hospital. -Patient evaluated and plan established by Dr Cano.
--- NOTE | 2024-09-17 12:51 | SWNOTE1 ---
UEN called Dr. Cano office and left message for the medical research associate, Destini, in regards to back brace.
--- NOTE | 2024-09-17 13:31 | SWNOTE1 ---
SW went back in and spoke with pt. SW expressed to pt that at this time he is not able to function like he was and for his safety it would be beneficial to go skilled. After a long conversation he is agreeable to go SNF and wants to go to the one on [address] in [place]. SW looked over SNF and it is [facility]. Pt in agreement and stated his friend lives close to there. SW reached out to Lauren at [facility] and they do have openings. Referral sent to [facility]. Referral included face sheet, ED note, H&P, provider notes, case management report, wound consult, nursing notes, diagnostic imaging, med list, and PT note.
--- NOTE | 2024-09-17 15:24 | SWNOTE1 ---
EUN heard back from Lauren at [facility] and they are able to accept. They will need HENS. HAQ to complete. Pt will be able to discharge when medically stable.
--- NOTE | 2024-09-17 16:40 | P.ORCN_ITS ---
History of Present Illness HPI Consult date: 09/17/24 Consult reason: other Chief complaint: ARM INFECTION, BACK PAIN Narrative: Patient is an 83-year-old male admitted through the emergency room last night with multiple complaints. He was found to have a compression fracture but is also had right arm pain. He does not recall a specific injury to his right arm. Difficult to pin down exactly when he started having arm pain but it seems as though it started earlier this week to his best recollection. He reports since being admitted to the hospital his arm is feeling better. Orthopedics was consulted to evaluate his right arm. Review of Systems ROS Status of ROS 10 or more systems reviewed and unremark able except as noted in history and below [facility] Medical History (Updated 09/17/24 @ 07:02 by Destini Celis RN) Thyroid disease ?E07.9 - Disorder of thyroid, unspecified (ICD-10) Family History (Updated 09/17/24 @ 05:52 by Destini Celis RN) Mother Family history of cancer Family history of hypertension Father Family history of hypertension Social History Highest level of school completed/degree received: Bachelor's degree Little interest or pleasure in doing things: not at all Feeling down, depressed, or hopeless: not at all Meds Home Medications and Allergies Home Medications ?Medication ?Instructions ?Recorded ?Confirmed ?Type No Known Home Medications 09/16/24 09/16/24 History Allergies Allergy/AdvReac Type Severity Reaction Status Date / Time No Known Drug Allergies Allergy Verified 09/16/24 18:10 Exam Narrative Exam Narrative: On physical exam he is in no obvious distress. He has erythema and induration from his proximal medial arm just past the elbow. It is warm compared to the surrounding skin. He reports is nontender to palpation. No palpable abscess. Grossly neurovascularly intact. Unable to make a complete fist Constitutional Vital Signs, click to edit/add: Last Vital Signs Temp 98.6 F 09/17/24 08:05 Pulse 81 09/17/24 08:05 Resp 16 09/17/24 08:05 BP 154/74 H 09/17/24 08:05 Pulse Ox 93 L 09/17/24 11:21 O2 Del Method Room Air 09/17/24 11:21 Results Labs Labs: Abnormal lab results 09/16/24 09/16/24 09/16/24 Range/Units 18:32 18:57 19:23 WBC 41.4 H* (4.0-11.0) 10^3/uL RBC 6.65 H (4.70-6.10) 10^6/uL Hgb 13.5 L (14.0-18.0) g/dL MCV 70.5 L (80.0-94.0) fL MCH 20.3 L (25.9-34.0) pg MCHC 28.8 L (29.9-35.2) g/dL RDW 25.1 H (11.0-15.0) % Plt Count 3218 H* (150-450) 10^3/uL MPV 9.4 L (9.5-13.5) fL Seg Neuts % (Manual) 90.0 H (43.0-75.0) Lymphocytes % (Manual) 2.0 L (20.5-60.0) % Eosinophils % (Manual) 0.0 L (0.9-7.0) % Neutrophils # (Manual) 37.26 H (1.4-6.5) 10^3/uL Band Neutrophils # 0.8 H (0.0-0.3) 10^3/uL Lymphocytes # (Manual) 0.82 L (1.20-3.80) 10^3/uL Monocytes # (Manual) 2.07 H (0.30-0.80) 10^3/uL Basophils # (Manual) 0.41 H (0.00-0.10) 10^3/uL PT 13.2 H (9.0-11.6) sec VBG pH 7.470 H (7.330-7.430) VBG pCO2 31.3 L (40.0-52.0) mmHg BUN 28.0 H (7.0-18.0) mg/dL Glucose 130 H (74-106) mg/dL Total Bilirubin 1.3 H (0.2-1.0) mg/dL AST 58 H (15-37) U/L ALT (16-63) U/L C-Reactive Protein 6.16 H (<=0.50) mg/dL Total Protein 6.0 L (6.4-8.2) g/dL Albumin 2.8 L (3.4-5.0) g/dL TSH 24.135 H (0.358-3.740) uIU/mL Free T4 0.69 L (0.76-1.46) ng/dL Free T3 1.07 L (2.18-3.98) pg/mL Urine Protein (NEG/TRACE) mg/dL Urine Ketones (NEGATIVE) mg/dL 09/16/24 09/17/24 Range/Units 21:05 05:53 WBC 33.3 H* (4.0-11.0) 10^3/uL RBC 6.47 H (4.70-6.10) 10^6/uL Hgb 13.1 L (14.0-18.0) g/dL MCV 70.2 L (80.0-94.0) fL MCH 20.2 L (25.9-34.0) pg MCHC 28.9 L (29.9-35.2) g/dL RDW 25.0 H (11.0-15.0) % Plt Count 2842 H* (150-450) 10^3/uL MPV 9.3 L (9.5-13.5) fL Seg Neuts % (Manual) 88.0 H (43.0-75.0) Lymphocytes % (Manual) 3.0 L (20.5-60.0) % Eosinophils % (Manual) (0.9-7.0) % Neutrophils # (Manual) 29.30 H (1.4-6.5) 10^3/uL Band Neutrophils # (0.0-0.3) 10^3/uL Lymphocytes # (Manual) 0.99 L (1.20-3.80) 10^3/uL Monocytes # (Manual) 2.33 H (0.30-0.80) 10^3/uL Basophils # (Manual) 0.33 H (0.00-0.10) 10^3/uL PT (9.0-11.6) sec VBG pH (7.330-7.430) VBG pCO2 (40.0-52.0) mmHg BUN 22.0 H (7.0-18.0) mg/dL Glucose (74-106) mg/dL Total Bilirubin 1.5 H (0.2-1.0) mg/dL AST (15-37) U/L ALT 14 L (16-63) U/L C-Reactive Protein (<=0.50) mg/dL Total Protein 5.3 L (6.4-8.2) g/dL Albumin 2.4 L (3.4-5.0) g/dL TSH (0.358-3.740) uIU/mL Free T4 (0.76-1.46) ng/dL Free T3 (2.18-3.98) pg/mL Urine Protein 30 A (NEG/TRACE) mg/dL Urine Ketones Trace A (NEGATIVE) mg/dL H & H 09/16/24 09/17/24 Range/Units 18:32 05:53 Hgb 13.5 L 13.1 L (14.0-18.0) g/dL Hct 46.9 45.4 (42.0-54.0) % Coagulation 09/16/24 Range/Units 19:23 INR 1.28 All other labs normal. Assessment and Plan Assessment and Plan (1) Closed compression fracture of L1 vertebra: (2) Cellulitis of arm, right: Plan For his right arm cellulitis agree with IV antibiotics. Currently no indication for surgical intervention.
[2024-09-17 20:45] LABS: Glucometer 141 mg/dL (74-106)
[2024-09-18] VITALS (8 sets, daily range): BP systolic 142–159; BP diastolic 68–87; PULSE 79–88; TEMP 36.6–36.8; O2SAT 93–97
[2024-09-18] MEDS: PIPERACILLIN SODIUM/TAZOBACTAM 3.375 GM in 0.9 % SODIUM CHLORIDE 50 ML IV ×3 (02:04→19:54)
[2024-09-18] MEDS: LEVOTHYROXINE SODIUM 100 MCG TABLET PO (06:08)
[2024-09-18 06:52] LABS: Hematocrit 45.8 % (42.0-54.0); Hemoglobin 13.1 g/dL (14.0-18.0); Mean Corpuscular HGB Conc 28.6 g/dL (29.9-35.2); Mean Corpuscular Hemoglobin 20.2 pg (25.9-34.0); Mean Corpuscular Volume 70.8 fL (80.0-94.0); Red Blood Count 6.47 10^6/uL (4.70-6.10); Red Cell Distribution Width 25.4 % (11.0-15.0)
[2024-09-18 07:06] LABS: Anion Gap 17.5; Carbon Dioxide 21.7 mmol/L (21.0-32.0); Chloride 104 mmol/L (98-107); Estimated GFR (African America >60 (>=60 mL/min/1.73m^2); Estimated GFR (Non-African Ame 51 (>=60 mL/min/1.73m^2); Glucose 84 mg/dL (74-106); Potassium 4.2 mmol/L (3.5-5.1); Sodium 139 mmol/L (136-145)
[2024-09-18 07:19] LABS: White Blood Count 34.2 10^3/uL (4.0-11.0)
[2024-09-18 07:20] LABS: Platelet Count 2260 10^3/uL (150-450)
[2024-09-18 07:21] LABS: Band Neutrophils Absolute 0.3 10^3/uL (0.0-0.3); Basophils Abs Manual 0.34 10^3/uL (0.00-0.10); Eosinophils Absolute Manual 1.02 10^3/uL (0.00-0.70); Lymphocytes Absolute Manual 0.68 10^3/uL (1.20-3.80); Monocytes Absolute Manual 2.05 10^3/uL (0.30-0.80); Nucleated Red Blood Cells 7; Segmented Neut Absolute Manual 29.75 10^3/uL (1.4-6.5)
[2024-09-18 07:23] LABS: Anisocytosis 1+; Hypochromasia 1+; Polychromasia 1+
[2024-09-18] MEDS: VANCOMYCIN HCL 750 MG in 0.9 % SODIUM CHLORIDE 250 ML 250 MG IV (08:57)
--- NOTE | 2024-09-18 09:03 | PM.PN ---
Progress Note: Subjective Subjective Interval history: Patient is a 83 y.o white male with past medical history of multiple falls at home. It appears that Dr. Antoine of Ortho and General Surgery all agree that there is no need for current surgical intervention of this right hematoma and to treat with IV antibiotics, patient has been getting Vancomycin and Zosyn. Patient also has polycythemia that is not treated. His platelets are 2260 with WBC's 34. He denies any fevers but notes increased pain and swelling of the right arm. Chest CT /lumbar, did show L1 and L4 compression fractures and ortho spine recommended LSO brace while up. He also notes constipation but actively went to the restroom while I was in the room. Exam Narrative Exam Narrative: General: Patient is alert, and oriented to person, place and time with normal affect, proper hygiene Skin: extensive ecchymosis from mid humerus, passed the right elbow to forearm with warmth and erythema of the forearm skin with some drainage. swelling on the top of right hand Head: atraumatic, acephalic Eyes: PERRLA, no nystagmus present, conjunctiva clear, no scleral icterus Ears: normal gross auditory acuity Heart: Normal rate and rhythm, no murmurs/rubs/gallops Lungs: no audible wheezes, crackles and normal breath sounds all lung owusu, visible bruising all along the right chest wall, ribs 2-12 Abdomen: Normal audible bowel sounds, no distension, No palpable masses, no organomegaly, no rebound/guarding/ or rigidity Musculoskeletal: no swelling bilateral lower extremities Neuro: CN II-X grossly intact, Constitutional Vital Signs, click to edit/add: Last Vital Signs Temp 98.0 F 09/18/24 08:02 Pulse 88 09/18/24 08:02 Resp 18 09/18/24 08:08 BP 154/87 H 09/18/24 08:02 Pulse Ox 94 L 09/18/24 08:02 O2 Del Method Room Air 09/18/24 08:02 Progress Note: Objective Labs Labs: Short CBC 09/18/24 Range/Units 06:42 WBC 34.2 H* (4.0-11.0) 10^3/uL Hgb 13.1 L (14.0-18.0) g/dL Hct 45.8 (42.0-54.0) % Plt Count 2260 H* (150-450) 10^3/uL BMP 09/18/24 06:42 Sodium 139 Potassium 4.2 Chloride 104 Carbon Dioxide 21.7 BUN 27.0 H Creatinine 1.35 H Glucose 84 Calcium 9.0 Progress Note: A&P Assessment and Plan (1) Cellulitis of arm, right: Assessment and Plan: per consultations no reason for surgical debridement or intervention at this time. I will get CT of the arm. Ultrasound was negative for clots. continue on Zosyn and Vancomycin. (2) Hematoma: Assessment and Plan: get CT, Ice and maybe Pardeep wrap (3) Closed compression fracture of L1 vertebra: Assessment and Plan: Ortho spine recommended LSO brace when standing Qualifiers: Encounter type: initial encounter Qualified Code(s): S32.010A - Wedge compression fracture of first lumbar vertebra, initial encounter for closed fracture (4) Thyroid disease: Assessment and Plan: monitor TFT's (5) Polycythemia: Assessment and Plan: monitor, will set up for hematology outpatient follow up (6) Multiple falls: Assessment and Plan: pt/ot evaluation and need for rehab facility Plan Patient is a full code continue aspirin and lovenox patient requiring 1-2 more days of hospital care and then will be discharged to [facility] for skilled rehab.
[2024-09-18 09:04] LABS: Vancomycin Trough 17.6 ug/mL (5.0-20.0)
[2024-09-18] MEDS: LIOTHYRONINE SODIUM 5 MCG TABLET 10 MCG PO (10:18)
[2024-09-18] MEDS: POLYETHYLENE GLYCOL 3350 17 GM POWDER PACKET PO (10:19)
[2024-09-18] MEDS: ASPIRIN 81 MG TAB.CHEW PO (10:19)
[2024-09-18] MEDS: ENOXAPARIN SODIUM 40 MG/0.4 ML SYRINGE SUBQ (10:19)
--- NOTE | 2024-09-18 11:58 | PM.ORPN ---
Progress Note: A&P Assessment and Plan (1) Closed compression fracture of L1 vertebra: (2) Cellulitis of arm, right: Plan Right upper extremity cellulitis appears consistent with presentation yesterday. Will continue to treat with IV antibiotics. No indication for surgery at this time. Plan discussed with my supervising physician Dr. Antoine who agrees with plan. Subjective Subjective Principal diagnosis: Right arm cellulitis Interval history: Patient was reevaluated today for his right arm cellulitis. Patient states that he feels the pain and swelling are somewhat increased, but states the nurse said it looked the same. Patient denies any hand paresthesias. Exam Narrative Exam Narrative: On physical exam he is in no obvious distress. He has erythema and induration from his proximal medial arm just past the elbow. It is warm compared to the surrounding skin. Somewhat tender with palpation diffusely today. No palpable abscess. Grossly neurovascularly intact. Unable to make a complete fist. Elbow extension/flexion reduced secondary to swelling. Constitutional Vital Signs, click to edit/add: Last Vital Signs Temp 98.0 F 09/18/24 08:02 Pulse 88 09/18/24 08:02 Resp 18 09/18/24 08:08 BP 154/87 H 09/18/24 08:02 Pulse Ox 93 L 09/18/24 11:09 O2 Del Method Room Air 09/18/24 11:09
[2024-09-18 12:52] LABS: Glucometer 119 mg/dL (74-106)
--- NOTE | 2024-09-18 13:39 | PT.DAILY ---
Physical Therapy Daily Note PT Daily Note/Assess Start: 09/18/24 13:35 Freq: Status: Active Protocol: Document 09/18/24 13:35 PABLO (Rec: 09/18/24 13:38 PABLO [id number]) Physical Therapy Daily Note/Assessment Time In/Time Out Time In 13:10 Time Out 13:28 Pain In Pain N/A Pain Out Pain N/A Subjective Subjective Pt sitting in BS chair upon arrival - butt nearly to edge of chair and slouching. Pt reports he's trying to get comfortable to take a nap. Offered to assist him back to bed but he wishes to stay in chair. Offered to find him a reclining chair and he agrees. R arm cont to be bothersome and swollen. Therapeutic Exercise Time Therapeutic Exercise Minutes (minutes) 5 Therapeutic Exercise Units 0 Therapeutic Exercise Treatment Therapeutic Exercise Treatment Pt is instructed to complete bilat LE strengthening ex 10x ea in BS chair prior to gait and transfers. Therapeutic Activity Time Therapeutic Activity Minutes (minutes) 12 Therapeutic Activity Units 1 Therapeutic Activity Treatment Chair Transfer Ability Standby Assistance Therapeutic Activity Comments Sit>sit SBA and amb without AD to restroom, CGA. Pt able to use restroom and perform hand hygiene IND. Pt amb in fitzpatrick 100'x2 with RW, SBA. Pt needs occ standing rest breaks due to hip pain. Pt returned to room to recliner where his feet are elevated, call light is within reach and needs are met. Total Physical Therapy Time Total Therapy Minutes 17 Total Physical Therapy Units 1 Summary Daily Note Summary Improved gait endurance and transfer ability.
--- NOTE | 2024-09-18 14:41 | CT_ITS ---
The [address] [address] Patient Name: ASHLEIGH GRIMALDO MRN: [id number] date: 1940 Sex: M Assigned Patient Location: [place] Current Patient Location: [place] Accession/Order Number: [id number] Exam Date: 09/18/2024 15:20 Report Date: 09/18/2024 17:19 At the request of: JAMESON GALLAGHER Procedure: CT humerus RT wo con EXAM: CT humerus RT wo con HISTORY: The patient is an 83-year-old male, large right hematoma COMPARISON: None. TECHNIQUE: CT images were obtained through the right humerus and upper arm without intravenous contrast and reformatted in 2 dimensions. Dose reduction techniques were achieved by using automated exposure control and/or adjustment of mA and/or kV according to patient size and/or use of iterative reconstruction technique. FINDINGS: There is diffuse enlargement of the right biceps muscle. This has a density less than normal muscle, and as such this is enlarged right biceps muscle appears to be filled with fluid rather than with blood products. There is also strandy edema within the subcutaneous tissues circumferentially around the upper arm. I cannot evaluate the integrity of the biceps muscle or of the proximal and distal biceps tendons with this CT scan. If there is a clinical concern for a rupture of the proximal proximal biceps tendon, an MRI of the right shoulder would be a more sensitive and specific imaging modality. If there is a clinical concern for a rupture of the distal biceps tendon, an MRI of the right elbow would be a more sensitive and specific imaging modality. The bone images demonstrate no fractures or cortical discontinuities throughout the length of the right humerus. There are no areas of bone destruction, periosteal reaction, or soft tissue gas to suggest osteomyelitis. There is a subacute appearing fracture of at least one of the right lower ribs, seen on axial image 153. CT/CT humerus RT wo con IMPRESSION: 1. Nonspecific diffuse swelling and edema of the right biceps muscle and surrounding subcutaneous tissues. 2. Subacute right lower rib fracture. Electronically authenticated by: SHIRA HOLLIS Date: 09/18/2024 17:19
[2024-09-18] MEDS: ACETAMINOPHEN 500 MG TABLET 1000 MG PO (15:53)
[2024-09-18 16:47] LABS: Glucometer 90 mg/dL (74-106)
--- NOTE | 2024-09-18 20:30 | PC.NURSE ---
1999: When nurse went to hang pts IV antibiotics, pt stated he did not want the antibiotic that he got first this morning because it made his arm worse , more swollen and red. Nurse looked at JAN and the ATB was Vanco at 0800, educated pt on importance of ATB and pts high wbc. Pt still refused the vanc but did agree to the Zosyn. He states he is big on natural remedies and immunity. He drank prune juice this afternoon and was able to have a BM, he did not want the colace. He did agree to have his sugar checked but will not take any insulin no matter how high it is. He states it will come back down eventually . Again, educated pt on all of this.
--- NOTE | 2024-09-19 02:21 | PC.NURSE ---
0220: Nurse went to hang pts 0300 Karine, pt stated he did not want another antibiotic he did not need the ones he took to begin with . Nurse educated pt on why he needs the antibiotics and more than just 1 dose. Pt will need to address his med concerns with the hosp in the morning if he wants the all natural approach.
[2024-09-19 05:00] VITALS: BP 156/94; PULSE 72; TEMP 36.5; O2SAT 96
[2024-09-19 05:40] VITALS: O2SAT 96
[2024-09-19] MEDS: LEVOTHYROXINE SODIUM 100 MCG TABLET PO (05:42)
[2024-09-19 06:23] LABS: Basophils Absolute Auto 0.3 10^3/uL (0.0-0.1); Basophils Percent Auto 1.2 % (0.2-2.0); Eosinophils Absolute Auto 0.5 10^3/uL (0.0-0.7); Eosinophils Percent Auto 1.6 % (0.9-7.0); Hematocrit 43.8 % (42.0-54.0); Hemoglobin 12.5 g/dL (14.0-18.0); Immature Granulocytes Abs Auto 0.95 10^3/uL (0.00-0.03); Immature Granulocytes Pct Auto 3.4 % (0.0-0.5); Lymphocytes Absolute Auto 0.7 10^3/uL (1.2-3.8); Lymphocytes Percent Auto 2.6 % (20.5-60.0); Mean Corpuscular HGB Conc 28.5 g/dL (29.9-35.2); Mean Corpuscular Volume 70.1 fL (80.0-94.0); Mean Platelet Volume 9.3 fL (9.5-13.5); Monocytes Absolute Auto 2.6 10^3/uL (0.3-0.8); Monocytes Percent Auto 9.4 % (1.7-12.0); Neutrophils Absolute Auto 22.9 10^3/uL (1.4-6.5); Neutrophils Percent Auto 81.8 % (43.0-75.0); Red Blood Count 6.25 10^6/uL (4.70-6.10); Red Cell Distribution Width 24.6 % (11.0-15.0)
[2024-09-19 06:30] LABS: Platelet Count 1946 10^3/uL (150-450)
[2024-09-19 06:36] LABS: Anion Gap 14.6; Calcium 8.7 mg/dL (8.5-10.1); Carbon Dioxide 24.6 mmol/L (21.0-32.0); Chloride 104 mmol/L (98-107); Estimated GFR (African America >60 (>=60 mL/min/1.73m^2); Estimated GFR (Non-African Ame 59 (>=60 mL/min/1.73m^2); Glucose 87 mg/dL (74-106); Potassium 4.2 mmol/L (3.5-5.1); Sodium 139 mmol/L (136-145)
--- NOTE | 2024-09-19 07:39 | P.DS_ITS ---
DS: Providers Provider Date of admission: 09/16/24 23:35 Primary care physician: SHARI MALIK Attending physician on admission: Adan Coello Consults: 09/17/24 06:04 Consult to General Surgeon Routine Consulting Provider: Eusebio Campoverde Reason for consultation: possible abscess - i and d? Has provider been notified: No Occupational Therapy Eval and Treat Routine Reason for consultation: Only if needed for Rehab Has provider been notified: No Physical Therapy Eval and Treat Routine Reason for consultation: Eval and Treat Has provider been notified: No 09/17/24 07:00 Consult to Mat Maker Routine Has provider been notified: No Reason for consult:: Housing/Long-Term 09/17/24 09:00 Occupational Therapy Eval and Treat Routine Reason for consultation: fall, back pain Has provider been notified: No Physical Therapy Eval and Treat Routine Reason for consultation: fall, back pain Has provider been notified: No 09/17/24 09:39 Consult to Orthopedic Surgery Routine Consulting Provider: Reyes Mathews Reason For Exam: Reason for consultation: compression fx Has provider been notified: No Discharging clinician: Ellie Galarza DS: Diagnosis Discharge Diagnosis (1) Cellulitis of arm, right: (2) Hematoma: (3) Closed compression fracture of L1 vertebra: Qualifiers: Encounter type: initial encounter Qualified Code(s): S32.010A - Wedge compression fracture of first lumbar vertebra, initial encounter for closed fracture (4) Thyroid disease: (5) Multiple falls: (6) Chronic myeloproliferative disorder: (7) Biceps muscle tear: Qualifiers: Encounter type: subsequent encounter Laterality: right Qualified C ode(s): S46.211D - Strain of muscle, fascia and tendon of other parts of biceps, right arm, subsequent encounter (8) Ribs, multiple fractures: Qualifiers: Encounter type: subsequent encounter Fracture type: closed Laterality: right Fracture healing: with routine healing Qualified Code(s): S22.41XD - Multiple fractures of ribs, right side, subsequent encounter for fracture with routine healing DS: Summary Hospital Course Hospital Course: Patient is a 83 y.o white male with past medical history of multiple falls at home. It appears that Dr. Antoine of Ortho and General Surgery all agree that there is no need for current surgical intervention of this right hematoma and to treat with IV antibiotics, patient has been getting Vancomycin and Zosyn. All cultures have been negative so patient was started on Oral Keflex today and will continue at discharge at 500mg BID x 7 days. 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 His platelets are 2260 down to 1946, with WBC's 34 down to 28. Although some of this is reactive, He takes aspirin daily, he has tried hydrochloroquine in the past. He follow with hematology but has missed several appoinments, he is amendable to following again with them after the [facility] stay. His right arm swelling and large hematoma is still present, but patient has remained afebrile. US did not show any abscess or clot formation. CT of the arm, no fracture. Concern for partial tear of biceps tendon but will treat conservatively with ice, VIVIAN wraps if needed and Tramadol for pain. Chest CT /lumbar, did show L1 and L4 compression fractures and ortho spine recommended LSO brace while up. We do not have those braces in the hospital. I have provided a written prescription for the [facility] to get with restrictions. He will follow up with ortho spine as outpatient. New finding of hypothyroidism. He will be discharged on levothyroxine daily. TFT's will need to be rechecked in 1 month. He will be discharged to intermediate facility today. Status at Discharge Functional status at discharge: uses cane/walker Overall status at discharge: patient is progressing back to baseline Time Spent with Patient Time attestation: Total time spent providing and/or coordinating discharge services: Time spent: greater than 30 minutes Exam Narrative Exam Narrative: General: Patient is alert, and oriented to person, place and time with normal affect, proper hygiene Skin: extensive ecchymosis from mid humerus, passed the right elbow to forearm with warmth and erythema of the forearm skin with some drainage. swelling on the top of right hand Head: atraumatic, acephalic Eyes: PERRLA, no nystagmus present, conjunctiva clear, no scleral icterus Ears: normal gross auditory acuity Heart: Normal rate and rhythm, no murmurs/rubs/gallops Lungs: no audible wheezes, crackles and normal breath sounds all lung owusu, visible bruising all along the right chest wall, ribs 2-12 Abdomen: Normal audible bowel sounds, no distension, No palpable masses, no organomegaly, no rebound/guarding/ or rigidity Musculoskeletal: no swelling bilateral lower extremities Neuro: CN II-X grossly intact, Constitutional Vital Signs, click to edit/add: Last Vital Signs Temp 97.7 F 09/19/24 05:00 Pulse 72 09/19/24 05:00 Resp 16 09/19/24 05:00 BP 156/94 H 09/19/24 05:00 Pulse Ox 96 09/19/24 05:40 O2 Del Method Room Air 09/19/24 05:40 DS: Data Data Completed and Pending Labs on day of discharge: Labs from last 24 hours 09/19/24 09/18/24 09/18/24 06:15 16:45 12:09 WBC 28.0 H RBC 6.25 H Hgb 12.5 L Hct 43.8 MCV 70.1 L MCH 20.0 L MCHC 28.5 L RDW 24.6 H Plt Count 1946 H* MPV 9.3 L Neut % (Auto) 81.8 H Lymph % (Auto) 2.6 L Kingman % (Auto) 9.4 Eos % (Auto) 1.6 Baso % (Auto) 1.2 Neut # (Auto) 22.9 H Lymph # (Auto) 0.7 L Kingman # (Auto) 2.6 H Eos # (Auto) 0.5 Baso # (Auto) 0.3 H Abs Immat Gran (auto) 0.95 H Imm/Tot Granulo (auto) 3.4 H Sodium 139 Potassium 4.2 Chloride 104 Carbon Dioxide 24.6 Anion Gap 14.6 BUN 26.0 H Creatinine 1.18 Est GFR ( Amer) >60 Est GFR (Non-Af Amer) 59 L BUN/Creatinine Ratio 22.0 Glucose 87 Calcium 8.7 Vancomycin Trough POC Glucose 90 119 H 09/18/24 06:42 WBC RBC Hgb Hct MCV MCH MCHC RDW Plt Count MPV Neut % (Auto) Lymph % (Auto) Kingman % (Auto) Eos % (Auto) Baso % (Auto) Neut # (Auto) Lymph # (Auto) Kingman # (Auto) Eos # (Auto) Baso # (Auto) Abs Immat Gran (auto) Imm/Tot Granulo (auto) Sodium Potassium Chloride Carbon Dioxide Anion Gap BUN Creatinine Est GFR ( Amer) Est GFR (Non-Af Amer) BUN/Creatinine Ratio Glucose Calcium Vancomycin Trough 17.6 POC Glucose Discharge Plan Discharge Disposition: Xfer SNF Condition: Fair Discharge Medications: New tramadol 50 mg Tablet 50 mg PO Q6H PRN (Reason: Pain Scale 4-6) 1 Days Qty: 4 0RF acetaminophen 500 mg Tablet 1,000 mg PO Q6H PRN (Reason: Pain Scale 1-3) Qty: 0 0RF levothyroxine 100 mcg Tablet 100 mcg PO ACB 30 Days Qty: 30 0RF cephalexin 500 mg Capsule 500 mg PO TID 7 Days Qty: 0 0RF aspirin 325 mg tablet 325 mg PO DAILY Qty: 30 0RF Print Language: Thai Activity Restrictions/Additional Instructions: For the patient's age-indeterminate L1/L4 compression fractures Ortho recommends an LSO brace to be worn when out of bed. - Follow-up with Dr. Cano after discharge from the hospital Development Disability Specialist/Post Anesthesia Room Nurse Instructions: Elise Henson skilled Forms: Portal Instructions Follow Up Appointments: Please make follow up with Dr. Calloway (hematology) as outpatient Please make follow up with Ortho spine Dr. Cano as outpatient for L1, L4 compression fracture and further need of LSO brace Discharge location: To [facility]
[2024-09-19 08:45] VITALS: BP 165/82; PULSE 80; TEMP 36.5; O2SAT 95
[2024-09-19] MEDS: LIOTHYRONINE SODIUM 5 MCG TABLET 10 MCG PO (08:50)
[2024-09-19] MEDS: CEPHALEXIN 500 MG CAPSULE PO (08:50)
[2024-09-19] MEDS: ASPIRIN 81 MG TAB.CHEW PO (08:50)
[2024-09-19] MEDS: DOCUSATE SODIUM 100 MG CAPSULE 200 MG PO (08:50)
[2024-09-19] MEDS: POLYETHYLENE GLYCOL 3350 17 GM POWDER PACKET PO (08:51)
[2024-09-19] MEDS: ENOXAPARIN SODIUM 40 MG/0.4 ML SYRINGE SUBQ (08:51)
[2024-09-19 10:45] VITALS: O2SAT 95
[2024-09-19 11:00] VITALS: O2SAT 95
[2024-09-19 11:13] LABS: Glucometer 292 mg/dL (74-106)
== END 2024-09-19 15:13 | DRG 603 ==
LOC: ER 23:03 → MS 23:36
PROVIDERS: Family Medicine; Physician Assistant; Registered Nurse; Admitting Provider Family Medicine; Emergency Provider Emergency Medicine; PCP Nurse Practitioner Family; Visit Provider Family Medicine
DX: L03.113 Cellulitis of right upper limb (principal); S32.010A Wedge compression fracture of first lumbar vertebra, initial encounter for closed fracture; S22.41XA Multiple fractures of ribs, right side, initial encounter for closed fracture; S32.040A Wedge compression fracture of fourth lumbar vertebra, initial encounter for closed fracture; E44.1 Mild protein-calorie malnutrition; J98.11 Atelectasis; D47.1 Chronic myeloproliferative disease; Z68.1 Body mass index [BMI] 19.9 or less, adult; S46.211A Strain of muscle, fascia and tendon of other parts of biceps, right arm, initial encounter; E03.9 Hypothyroidism, unspecified; S40.021A Contusion of right upper arm, initial encounter; I10 Essential (primary) hypertension; R73.03 Prediabetes; R00.0 Tachycardia, unspecified; D72.829 Elevated white blood cell count, unspecified; D75.839 Thrombocytosis, unspecified; R73.9 Hyperglycemia, unspecified; I89.0 Lymphedema, not elsewhere classified; K59.00 Constipation, unspecified; N40.0 Benign prostatic hyperplasia without lower urinary tract symptoms; W19.XXXA Unspecified fall, initial encounter; Z91.81 History of falling; Z79.82 Long term (current) use of aspirin
CPT/HCPCS: 36415; 70450; 71260; 72125; 73200; 74177; 80048; 80053; 80202; 81003; 82550; 82800; 82948; 83605; 83735; 84439; 84443; 84481; 84484; 85007; 85025; 85027; 85610; 85652; 86140; 87040; 87081; 90471; 90715; 93005; 93971; 94667; 94668; 94761; 96365; 96367; 97162; 97165; 97530; 99285; J1650; J2543; J3370; Q9967

== ENCOUNTER 2025-07-11 11:42 | Inpatient (IN) | payer MEDICARE, SELFPAY ==
--- OUTSIDE RECORDS SUMMARY | 2024-03-23 08:07 | XMS_ITS ---
Author Organization [facility] in [place] Address [address] [place] [address] Care Team Providers Care Train Control Electronic Technician Name Role Phone Lidia Velarde Primary Care Provider LIDIA VELARDE Unavailable [phone] REASON FOR VISIT repeat labs due Encounters Encounter Location Date Provider Diagnosis [place] [address] [place] [facility] [place] [address] 03/23/2024 LIDIA VELARDE Hypothyroid E03.9 an d Elevated PSA R97.20 Assessments Encounter Date Diagnosis (ICD Code) Assessment Notes Treatment Notes Treatment Clinical Notes Section Notes 03/23/2024 Hypothyroid (ICD-10 - E03.9) 03/23/2024 Elevated PSA (ICD-10 - R97.20) Plan Of Treatment Pending Test Test Name Order Date THYROID PANEL (T4/TSH/FREE T3) PSA, SCREENING 03/23/2024 Progress Notes * Nikki GRIMALDOOB:1940 ( 83 yo M)Acc No.[id number]:03/23/2024 Patient: Vikas IGNACIO :1940 A ge:83 Y S ex:Male Address:[facility], [place] [address] Subjective: * Chief Complaints: * R epeat labs due * Medical History: * Surgical History: * Hospitalization/Major Diagno stic Procedure: * Medications: Objective: * Vitals: * Physical Examination: Assessment: * Assessment: 1. H ypothyroid - E03.9 (Primary) 2 . E levated PSA - R97.20 Plan: * Treatment: 2. E levated PSA L AB: PSA, SCREENING * Procedure Codes: * true * Date: Generated for Skylar ravi/Rhona/Christopher on: 0 07/11/2025 11:51 AM EDT
--- OUTSIDE RECORDS SUMMARY | 2024-05-14 06:30 | XMS_ITS ---
Author Organization [facility] in [place] Address [address] [place] [address] Care Team Providers Care Maintenance Supervisor Mechanical Name Role Phone Lidia Velarde Primary Care Provider REASON FOR VISIT 3 mos f/u Encounters Encounter Location Date Provider Diagnosis [facility] [address] [place] [address] 05/14/2024 Lidia Velarde Plan Of Treatment No Information Progress Notes * Jeffery GRIMALDOEvangelinaOB:1940 ( 84 yo M)Acc No.[id number]:05/14/2024 UNLOCKED PROGRESS NOTE Progress Note Patient: Vikas IGNACIO Provider: Marj Velarde CNP (TTC) :1940 A ge:83 Y S ex:Male Date:05/14/2024 Address:[address] [place] [address] [id number] Subjective: * Chief Complaints: * 1 . 3 mos f/u. * Medical History: Objective: * Vitals: Assessment: Plan: * Treatment: * * Electronic signature of Gaby Vazquez NP, SUPPLY ASSISTANT.GENERATING STATION [id number] on 07/11/2025 at 11:52 AM EDT Sign off status: Pending Visit Status: C ANCPHONE (Cancelled Phone) * Provider: Marj Velarde CNP (TTC) Date: 0 05/14/2024 Generated for Printi ng/Faxing/eTransmitting on: 0 07/11/2025 11:52 AM EDT
--- OUTSIDE RECORDS SUMMARY | 2024-09-17 05:50 | XMS_ITS ---
Author Organization [facility] [place] Address [address] [place] [address] Care Team Providers Care Procurement Engineer Name Role Phone Lidia Velarde Primary Care Provider REASON FOR VISIT admitted to [facility] Encounters Encounter Location Date Provider Diagnosis [facility] [address] [place] [address] 09/17/2024 Lidia Velarde Plan Of Treatment No Information Progress Notes * Nikki GRIMALDOOB:1940 ( 83 yo M)Acc No.[id number]:09/17/2024 Patient: Vikas IGNACIO :1940 A ge:83 Y S ex:Male Address:[facility], [place] [address] * true * Date: Generated for Skylar ravi/Rhona/eTransmitting on: 0 07/11/2025 11:51 AM EDT
--- OUTSIDE RECORDS SUMMARY | 2024-11-09 06:15 | XMS_ITS ---
Author Organization [facility] in [place] Address [address] [place] [address] Care Team Providers Care Bread Packer Name Role Phone Lidia Velarde Primary Care Provider [phone] Carmen Calloway Unavailable [phone] REASON FOR VISIT MD Encounters Encounter Location Date Provider Diagnosis [facility] Oncology [facility] [place] [address] 11/09/2024 Carmen Calloway Plan Of Treatment No Information Progress Notes * Nikki GRIMALDOOB:1940 ( 84 yo M)Acc No.[id number]:11/09/2024 UNLOCKED PROGRESS NOTE Progress Notes Patient: Vikas IGNACIO Provider: Dede Calloway M.D. :1940 A ge:83 Y S ex:Male Date:11/09/2024 Address:[address] [place] [address] [address] [id number] Pcp:Lidia Velarde Subjective: * Chief Complaints: * 1 . MD. * Medical History: Objective: * Vitals: Assessment: Plan: * Treatment: * * Electronic signature of Stefan Calloway MD, [id number] on 07/11/2025 at 11:52 AM EDT Sign off status: Pending Visit Status: C ANC (Cancelled) * Provider: Dede Calloway M.D. Date: 0 11/09/2024 Generated for Printi ng/Rhona/eTransmitting on: 0 07/11/2025 11:52 AM EDT
--- OUTSIDE RECORDS SUMMARY | 2024-11-22 10:30 | XMS_ITS ---
Author Organization [facility] es Address [address] [place] [address] Care Team Providers Care Electrical Engineering Teacher Name Role Phone Jones Moeller Primary Care Provider REASON FOR VISIT SNF DISCHARGE Encounters Encounter Location Date Provider Diagnosis [facility] [address] [place] [address] 11/22/2024 Jones Moeller Plan Of Treatment No Information Progress Notes * DILLAN JAMESRADHAOB:1940 ( 84 yo M)Acc No.[id number]:11/22/2024 Progress Notes Patient: ASHLEIGH IGNACIO Provider: Dede Moeller :1940 A ge:84 Y S ex:Male Date:11/22/2024 Address:[address] [place], [place] [id number] Subjective: * Chief Complaints: * 1 . SNF DISCHARGE. * Medical History: Objective: * Vitals: Assessment: Plan: * Treatment: Care Plan: * Problems: * Images: * Electronic signature of Brissa Moeller DO on 07/11/2025 at 11:51 AM EDT Sign off status: Pending * Provider: Dede Moeller Date: 0 11/22/2024 Generated for Skylar ravi/Rhona/Christopher on: 0 07/11/2025 11:51 AM EDT
--- OUTSIDE RECORDS SUMMARY | 2024-11-23 10:00 | XMS_ITS ---
Author Organization [facility] in [place] Address [address] [place] [address] Care Team Providers Care Screw Machine Hand Name Role Phone Lidia Velarde Primary Care Provider [phone] Carmen Calloway Unavailable [phone] REASON FOR VISIT MD Encounters Encounter Location Date Provider Diagnosis [facility] Oncology [facility] [place] [address] 11/23/2024 Carmen Calloway Plan Of Treatment No Information Progress Notes * Nikki GRIMALDOOB:1940 ( 84 yo M)Acc No.[id number]:11/23/2024 UNLOCKED PROGRESS NOTE Progress Notes Patient: Vikas IGNACIO Provider: Dede Calloway M.D. :1940 A ge:84 Y S ex:Male Date:11/23/2024 Address:[address] [place] [address] [address] [id number] Pcp:Lidia Velarde Subjective: * Chief Complaints: * 1 . MD. * Medical History: Objective: * Vitals: Assessment: Plan: * Treatment: * * Electronic signature of Stefan Calloway MD, [id number] on 07/11/2025 at 11:53 AM EDT Sign off status: Pending Visit Status: C ANC (Cancelled) * Provider: Dede Calloway M.D. Date: 0 11/23/2024 Generated for Printi ng/Rhona/eTransmitting on: 0 07/11/2025 11:53 AM EDT
[2025-07-11] VITALS (44 sets, daily range): BP systolic 101–175; BP diastolic 63–114; PULSE 79–156; TEMP 34.3–36.8; O2SAT 83–100; BMI 21.6; BMI 19.3
--- OUTSIDE RECORDS SUMMARY | 2025-07-11 11:51 | XMS_ITS | Patient Health Record ---
Author Organization [facility] es Address [address] [facility] [place] [address] Care Team Providers Care Product Marketing Analyst Name Role Phone Jones Moeller Primary Care Provider Reason For Referral No Information Plan Of Treatment No Information
--- OUTSIDE RECORDS SUMMARY | 2025-07-11 11:51 | XMS_ITS | Encounter Summary ---
Author Organization [facility] Address [address] [place] [address] Care Team Providers Care Professor Of German Name Role Phone Unavailable Primary Care Provider Unavailabl e Encounter Details Date Type Department Care Team (Late st Contact Info) Description 10/01/2023 Abstract [facility] [address] [place] [id number] Vinod Ray, DPM FACFAS [address] [facility] [place] [address] Social History Tobacco Use Types Packs/Day Years Used Date Smoking Tobacco: Former Cigarettes Smokeless Tobacco: Never Alcohol Use Standard Drinks/Week Comments Defer 0 (1 standard drink = 0.6 oz pur e alcohol) Sex and Gender Information Value Date Recorded Sex Assigned at Not on file Legal Sex Male 2:39 PM EST Gender Identity Not on file Sexual Orientation Not on file documented as of this encounter Plan of Treatment Not on file documented as of this encounter Visit Diagnoses Not on filedocumented in this encounter
--- OUTSIDE RECORDS SUMMARY | 2025-07-11 11:51 | XMS_ITS | Encounter Summary ---
Author Organization [facility] Address [address] [place] [address] Phone Care Team Providers Care Environmental Lead Name Role Phone Unavailable Primary Care Provider Unavailabl e Encounter Details Date Type Department Care Team (Late st Contact Info) Description 10/02/2023 Scanned Document [facility] [address] [place] [address] Scanning, Generic Provider Social History Tobacco Use Types Packs/Day Years Used Date Smoking Tobacco: Never Assessed Sex and Gender Information Value Date Recorded Sex Assigned at Not on file Legal Sex Male 9:08 AM EST Gender Identity Not on file Sexual Orientation Not on file documented as of this encounter Plan of Treatment Not on file documented as of this encounter Procedures Procedure Name Priority Date/Time Associated Diagnosis Comments ECHOCARDIOGRAM 10/02/2023 documented in this encounter Results * ECHOCARDIOGRAM (10/02/2023) Narrative 10/02/2023 Ordered by an unspecified provider. us Generic Provider Scanning CV ECHO PROCEDURES Fin al Result documented in this encounter Visit Diagnoses Not on filedocumented in this encounter
--- OUTSIDE RECORDS SUMMARY | 2025-07-11 11:51 | XMS_ITS | Encounter Summary ---
Author Organization [facility] Address [address] [place] [address] Care Team Providers Care Paste Mixing Supervisor Name Role Phone Unavailable Primary Care Provider Unavailabl e Encounter Details Date Type Department Care Team (Late st Contact Info) Description 10/03/2023 Abstract [facility] [address] [place] [phone] Vinod Ray, DPM FACFAS [address] [facility] [place] [address] Social History Tobacco Use Types Packs/Day Years [...]
--- OUTSIDE RECORDS SUMMARY | 2025-07-11 11:51 | XMS_ITS | Encounter Summary ---
Author Organization [facility] Address [address] [place] [address] Care Team Providers Care Awning Craftsperson Name Role Phone Unavailable Primary Care Provider Unavailabl e Encounter Details Date Type Department Care Team (Late st Contact Info) Description 10/08/2023 Abstract [facility] [address] [place] [address] Vinod Ray, DPM FACFAS [address] [facility] [place] [address] Social History Tobacco Use Types Packs/Day Years [...]
--- OUTSIDE RECORDS SUMMARY | 2025-07-11 11:51 | XMS_ITS | Encounter Summary ---
Author Organization [facility] Address [address] [place] [address] Care Team Providers Care Probation Counselor Name Role Phone Unavailable Primary Care Provider Unavailabl e Encounter Details Date Type Department Care Team (Late st Contact Info) Description 10/03/2023 Abstract [facility] [address] [place] [phone] Vinod Ray, DPM FACFAS [address] [facility] [place] [address] Social History Tobacco Use Types Packs/Day Years [...]
--- OUTSIDE RECORDS SUMMARY | 2025-07-11 11:51 | XMS_ITS | Clinical Summary ---
Author Organization [facility] Address [address] [place] [address] Care Team Providers Care Abrasive Grader Name Role Phone Unavailable Primary Care Provider Unavailabl e Social History Tobacco Use Types Packs/Day Years Used Date Smoking Tobacco: Never Assessed Sex and Gender Information Value Date Recorded Sex Assigned at Not on file Legal Sex Male 10:05 AM EST Gender Identity Not on file Sexual Orientation Not on file Plan of Treatment Not on file Insurance MEDICARE
--- OUTSIDE RECORDS SUMMARY | 2025-07-11 11:51 | XMS_ITS ---
Author Organization [facility] Care Team Providers Care Office Admin Name Role Phone Kandy Greenwood Unavailable Unavailable Chapo Oshea Unavailable Allergies and adverse reactions No Known Allergies Care Team Name Role Address Phone Organization Dates Itri A Timo PCP [address], [place], [address], [facility] (Office): : : : [facility] 10/04/2023 - 10/23/2023 Chapo [place], [facility] 10/04/2023 - 10/23/2023 Immunizations Immunization Status Vaccine Details Vaccine Code CodeSystem Willian e Notes TB 2 Step Mantoux Skin Test completed tuberculin skin test; unspecified formulation lotNumber: [id number] expiry: 09/02/2026 Given 0.1 ml Right Forearm intradermally Step 2 of Multi-step with next step required 98 CVX created date: 10/13/2023 consent date: 10/13/2023 administere d date: 10/13/2023 TB 2 Step Mantoux Skin Test completed tuberculin skin test; unspecified formulation lotNumber: [id number] expiry: 10/03/2026 Given 0.1 ml Right Forearm intradermally Step 1 of Multi-step with next step required 98 CVX created date: 10/06/2023 consent date: 10/06/2023 administere d date: 10/06/2023 Medications Section Medication Name Status Code CodeSystem Dose Route Frequency Admin Type Sig Text Start Date End Date Chlorthalidon e Oral Tablet 25 MG active 19740712 RXNORM 25 mg Oral in the morning Routine Give 25 mg by mouth in the [facility] relate d to [facility] ED BLOOD- PRESSU RE RAMAN Valentin WITHOU T DIAGNO SIS OF HYPERT ENSION (R03.0 ) 2022 - Aspirin EC Low Dose Oral Tablet Delayed Release 81 MG active 1 tablet Oral in the morning Routine Give 1 tablet by mouth in the [facility] relate d to THROMB OCYTOS IS, UNSPEC IFIED (D75.8 39) 2022 - Iron Oral Tablet 325 (65 Fe) MG active 1 tablet Oral in the morning Routine Give 1 tablet by mouth in the [facility] every other day relate d to IRON DEFICI ENCY (E61.1 ) 2022 - NIFEdipine ER Oral Tablet Extended Release 24 Hour 60 MG active 19800106 RXNORM 1 tablet Oral in the morning Routine Give 1 tablet by mouth in the [facility] relate d to THROMB OCYTOS IS, UNSPEC IFIED (D75.8 39) *DO NOT CRUSH* 2022 - Hydroxyurea Oral Capsule 500 MG active 19770710 RXNORM 1 capsule Oral in the morning Routine Give 1 capsul e by mouth in the [facility] relate d to THROMB OCYTOS IS, UNSPEC IFIED (D75.8 39) 2022 - Mental Status Section Date Assessment Total Score Description 10/23/2023 BIMS 15 cognitively int act CAM 0 No delirium ind icated PHQ-9 00 10/05/2023 BIMS 15 cognitively int act CAM 0 No delirium ind icated PHQ-9 00 Problems Problem # Description Date of onset Resolved Date Code CodeSystem Concern Status 1 NEED FOR ASSISTANCE WITH PERSONAL CARE 11/06/[id number] active 2 UNSPECIFIED LACK OF COORDINATION 10/11/[address] active 3 ACUTE KIDNEY FAILURE, UNSPECIFIED 10/10/2010/10/[address] completed 4 ELEVATED BLOOD-PRESSURE READING, WITHOUT DIAGNOSIS OF HYPERTENSION 10/10/[address] active 5 MUSCLE WEAKNESS (GENERALIZED) 10/07/[address] active 6 CUTANEOUS ABSCESS OF LEFT FOOT 10/04/2010/04/[address] completed 7 IRON DEFICIENCY 10/04/2010/04/[address] completed 8 ACUTE KIDNEY FAILURE, UNSPECIFIED 10/03/[address] active 9 CUTANEOUS ABSCESS OF LEFT FOOT 10/03/[address] active 10 IRON DEFICIENCY 10/03/[address] active 11 THROMBOCYTOSIS, UNSPECIFIED 10/03/[address] active Reason for Referral No Reasons for Referral Entered Social History Social History Observation Description Start Date End Date Code Code System Current Smoking Status Tobacco smoking consumption unknown 466297167 SNOMED CT Sex Assigned At Male 1940 [address]-0 [facility] Gender Identity Male [id number] [address] Vital Signs Code Code System Vitals Name Values and Units Timing Information 9279-1 [facility] Respiratory Rate Value=18.0 Units=/m in 10/23/2023 8462-4 [facility] Blood Pressure-Diastolic Value=86 Un its=mmHg 10/23/2023 8480-6 [facility] Blood Pressure-Systolic Xquzd=120 Un its=mmHg 10/23/2023 8310-5 [facility] Body Temperature Value=97.3 Units= F 10/23/2023 8867-4 [facility] Heart rate Value=78.0 Units=/min 20371-0 [facility] O2 % BldC Oximetry Value=95.0 Units= % 10/23/2023 54122-8 [facility] Weight Buoef=631.0 Units=Lbs 8302-2 [facility] Height Value=60.0 Units=Inches 10/09/2023
--- OUTSIDE RECORDS SUMMARY | 2025-07-11 11:52 | XMS_ITS | Clinical Summary ---
Author Organization [facility] Address [address] [place] [address] Care Team Providers Care Motors And Controls Tester Name Role Phone Unavailable Primary Care Provider Unavailabl e Allergies No known active allergies Medications No known medications Active Problems No known active problems Encounters Date Type Department Care Team Description 05/24/2025 Abstract [facility] [address] [place] [address] Dean Cuadra MD from Last 3 Months Family History Relation Name Status Comments Father Mother Social History Tobacco Use Types Packs/Day Years Used Date Smoking Tobacco: Former Cigarettes Smokeless Tobacco: Never Tobacco Cessation:Counseling Given: Yes Alcohol Use Standard Drinks/Week Comments Defer 0 (1 standard drink = 0.6 oz pur e alcohol) Sex and Gender Information Value Date Recorded Sex Assigned at Not on file Legal Sex Male 2:39 PM EST Gender Identity Not on file Sexual Orientation Not on file Last Filed Vital Signs Vital Sign Reading Time Taken Comments Blood Pressure 132/77 10/22/2023 1:44 PM EST Pulse 68 10/22/2023 1:44 PM EST Temperature - - Respiratory Rate - - Oxygen Saturation - - Inhaled Oxygen Concentration - - Weight 82.1 kg (181 lb) 10/22/2023 1:44 PM EST Height 162.6 cm (5' 4 ) 10/22/2023 1:44 PM EST Body Mass Index 31.07 10/22/2023 1:44 PM EST Plan of Treatment Not on file Insurance MEDICARE
--- OUTSIDE RECORDS SUMMARY | 2025-07-11 11:52 | XMS_ITS | Patient Health Record ---
Author Organization [facility] in [place] Address [address] [place] [address] Care Team Providers Care Mat Roller Name Role Phone Lidia Malik Primary Care Provider [phone] Carmen Calloway Unavailable [phone] Allergies No Known Allergies Results Component Value Reference Range Notes CBC AUTO DIFF Reviewed date:09/17/2024 08:25:01 AM Interpretation: Performing Lab: Notes/Report: [facility] , White Blood Count 41.4 4.0-11.0 10 3/uL RESULT S CALLED TO NASREEN HINOJOSA RN Red Blood Count 6.65 4.70-6.10 10 6/uL Hemoglobin 13.5 14.0-18.0 g/dL Hematocrit 46.9 42.0-54.0 % Mean Corpuscular Volume 70.5 80.0-94.0 fL Mean Corpuscular Hemoglobin 20.3 25.9-34.0 pg Mean Corpuscular HGB Conc 28.8 29.9-35.2 g/dL Red Cell Distribution Width 25.1 11.0-15.0 % Platelet Count 3218 150-450 10 3/uL RESULTS CA LLED TO NASREEN HINOJOSA RN Mean Platelet Volume 9.4 9.5-13.5 fL Performing Lab: see note ML - [facility] LB CPK Reviewed date:09/17/2024 08:25:01 AM Interpretation: Performing Lab: Notes/Report: [facility] , Creatine Kinase 151 39-308 U/L Performing Lab: see note - [facility] LB CRP Reviewed date:09/17/2024 08:25:01 AM Interpretation: Performing Lab: Notes/Report: [facility] , C Reactive Protein 6.16 <=0.50 mg/dL Performing Lab: see note ML - [facility] LB FREE T3 Reviewed date:09/17/2024 08:25:01 AM Interpretation: Performing Lab: Notes/Report: Add on [facility] , Free T3 1.07 2.18-3.98 pg/mL Performing Lab: see note ML - [facility] LB FREE T4 Reviewed date:09/17/2024 08:25:01 AM Interpretation: Performing Lab: Notes/Report: Add on [facility] , Free T4 0.69 0.76-1.46 ng/dL Performing Lab: see note ML - [facility] LB LACTATE or LACTIC ACID Reviewed date:09/17/2024 08:25:01 AM Interpretation: Performing Lab: Notes/Report: [facility] , Lactate/Lactic Acid 1.7 0.4-2.0 mmol/L Performing Lab: see note ML - [facility] LB MAGNESIUM Reviewed date:09/17/2024 08:25:01 AM Interpretation: Performing Lab: Notes/Report: [facility] , Magnesium 1.8 1.8-2.4 mg/dL Performing Lab: see note ML - [facility] LB PROF 14(COMP METB) Reviewed date:09/17/2024 08:25:01 AM Interpretation: Performing Lab: Notes/Report: [facility] , Sodium 140 136-145 mmol/L Potassium 4.0 3.5-5.1 mmol/L Chloride 103 98-107 mmol/L Carbon Dioxide 22.2 21.0-32.0 mmol/L Anion Gap 18.8 Glucose 130 74-106 mg/dL Blood Urea Nitrogen 28.0 7.0-18.0 mg/dL Creatinine 1.10 0.70-1.30 mg/dL Estimated GFR ( [place] >60 >=60 mL/min/1.73m 2 Estimated GFR (Non- [place] >60 >=60 mL/min/1.73m 2 BUN Creatinine Ratio 25.5 Calcium 9.0 8.5-10.1 mg/dL Bilirubin Total 1.3 0.2-1.0 mg/dL Aspartate Amino Transferase 58 15-37 U/L Alanine Aminotransferase 19 16-63 U/L Alkaline Phosphatase 106 46-116 U/L Total Protein 6.0 6.4-8.2 g/dL Albumin Level 2.8 3.4-5.0 g/dL Globulin 3.2 Albumin Globulin Ratio 0.9 Performing Lab: see note ML - [facility] LB TSH Reviewed date:09/17/2024 08:25:01 AM Interpretation: Performing Lab: Notes/Report: [facility] , Thyroid Stimulating Hormone 24.135 0.358-3.740 uIU/mL Performing Lab: see note ML - [facility] LB UA (CLEAN or CATCH) RAMP SERVICE EMPLOYEE or M ICRO IF IND. Reviewed date:09/17/2024 08:25:01 AM Interpretation: Performing Lab: Notes/Report: [facility] , Color Urine YELLOW YELLOW Clarity Urine CLEAR CLEAR Specific [place] Urine 1.015 1.005-1.025 pH Urine 5.5 5.0-9.0 Protein Urine 30 NEG/TRACE mg/dL Glucose Urine UA NEGATIVE NEGATIVE mg/dL Bilirubin Urine NEGATIVE NEGATIVE Ketones Urine TRACE NEGATIVE mg/dL Blood Urine NEGATIVE NEGATIVE Nitrite Urine NEGATIVE NEGATIVE Urobilinogen Urine 0.2 0.2-1.0 EU/dL Leukocyte Esterase Urine NEGATIVE NEGATIVE Urine Microscopic Indicated NO Performing Lab: see note ML - [facility] Prothrombin Time INR Reviewed date:09/17/2024 08:25:01 AM Interpretation: Performing Lab: Notes/Report: [facility] , Prothrombin Time 13.2 9.0-11.6 sec INR 1.28 2.5-3.5 FOR PROSTHETIC HEART VALVE REPLACEMENT DESIRED INR: 2.5-3.5 RECURRENT THROMBOSIS 2.0-3.0 CONDITIONS NOT LISTED BELOW Performing Lab: see note ML - [facility] Erythrocyte Sedimentation Ra te Reviewed date:09/17/2024 08:25:01 AM Interpretation: Performing Lab: Notes/Report: [facility] , Erythrocyte Sedimentation Rate 10 <=20 mm/hr Performing Lab: see note ML - [facility] LB Troponin I High Sensitivity Reviewed date:09/17/2024 08:25:01 AM Interpretation: Performing Lab: Notes/Report: [facility] , Troponin I High Sensitivity 10.6 4.0-76.1 pg/mL UNIVERSAL DEFINITION OF MYOCARDIAL INFARCTION. THE UPPER NOTE: HIGH-SENSITIVITY TROPONIN ASSAY IS NOT INTENDED TO BE REFERENCE LIMIT (URL) OF TROPONIN, DEFINED THE 99TH HAS BEEN CONFIRMED THE DECISION THRESHOLD FOR FL 99TH PERCENTILE = 76.2 PG/ML USED IN ISOLATION BUT SHOULD BE INTERPRETED IN CONJUNCTION CUT-OFF POINTS HAVE BEEN ESTABLISHED BASED ON THE FOURTH DIAGNOSIS. PERCENTILE OF cTnI DISTRIBUTION IN A REFERENCE POPULATION, WITH OTHER DIAGNOSTIC AND CLINICAL INFORMATION. Performing Lab: see note ML - [facility] LB Venous Blood Gas Reviewed date:09/17/2024 08:25:01 AM Interpretation: Performing Lab: Notes/Report: [facility] , pH VBG 7.470 7.330-7.430 PCO2 VBG 31.3 40.0-52.0 mmHg Performing Lab: see note ML - [facility] LB CT CHEST W CON Reviewed date:09/17/2024 08:25:01 AM Interpretation: Performing Lab: Notes/Report: Source Facility: [facility]-[address] [place] [address] [place] [address] CT Scan Report Signed Patient: VIKAS APONTE MR#: [id number] : 1940 Acct:[id number] Age/Sex: 83 / M ADM Date: 09/16/24 Loc: ER Attending Dr: Ordering Physician: Nati Ramires Date of Service: 09/16/24 Procedure(s): CT chest w con Accession Number(s): [id number] cc: LIDIA MALIK [place] [address] Patient Name: VIKAS APONTE MRN: [id number] date: 1940 Sex: M Assigned Patient Location: ER Current Patient Location: ED.MAIN Accession/Order Number: [id number] Exam Date: 09/16/2024 19:30 Report Date: 09/16/2024 21:44 At the request of: NATI RAMIRES Procedure: CT chest w con EXAM: CT chest w con HISTORY: Ecchymosis COMPARISON: CT abdomen and pelvis with contrast obtained the same day dictated separately. Please see this report. TECHNIQUE: Following nonionic IV contrast, thin section axial scans obtained from thoracic inlet to upper abdomen with coronal and sagittal reformatted images. Omnipaque 300, 100 mL given IV without event. Dose reduction techniques were achieved by using automated exposure control and/or adjustment of mA and/or kV according to patient size and/or use of iterative reconstruction technique. FINDINGS: There are prominent linear areas of scarring with some atelectasis in both lower lobes. Both lungs are hyperinflated with probable COPD. Lungs otherwise clear. No focal consolidation. No mass or nodule. No pneumothorax or pleural effusion. The central pulmonary arteries enhance satisfactorily. No evidence of PE. Cardiac chambers are normal in size. No pericardial or mediastinal fluid. No mediastinal or hilar lymphadenopathy. Normal caliber thoracic aorta. Maximum diameter of ascending thoracic aorta 3.7 cm. No dissection. There is some mild to moderate scattered calcific and soft plaque in the aortic arch along the descending thoracic aorta. Arch vessels are patent and unremarkable. There is some mild calcifications at aortic valve. There are no acute thoracic spine fractures. There is a acute/subacute fracture at the inferior endplate of L1. Correlate with onset of injury and symptoms. There is diffuse osseous demineralization. No lytic or blastic bone lesions. There is some chronic wedging of several lower thoracic vertebrae at T7, T8, T9 and minimally at T10. Old superior endplate Schmorl's node decompression changes at upper endplate of T4. Small Schmorl's node at inferior endplate of T7, T8 and T9. There is an old healed mid body sternal fracture. Healed with slight deformity and irregularity. No acute chest wall fracture. No acute rib fracture. There is an indeterminate soft tissue density beginning in the right axillary region and extending towards the inner margin of the upper right humerus, incompletely imaged on this study. Uncertain etiology. The query mass versus resolving hematoma. This extends greater than 12 cm in length and on axial scans measures at least 6.6 x 5.5 cm. Recommend dedicated right shoulder and humeral imaging with MRI with and without. If unable to obtain MRI, CT with and without when stable. There is severe left glenohumeral osteoarthritis. Chronic ossified intra-articular loose bodies along the anterior mid to lower margin of the left glenohumeral joint. These are large with several, largest measuring up to 2.9 cm. Extensive large bulky left humeral head osteophyte formation. No acute upper extremity fractures. No significant right glenohumeral joint narrowing. CT of the abdomen: obtained the same day dictated separately. Please see this report. Chest wall is intact. No obvious axillary adenopathy. CT/CT chest w con IMPRESSION: 1. Partial imaging of indeterminate soft tissue mass versus resolving hematoma within the upper inner margin of the right humerus extending from axilla distally, incompletely evaluated on this study. See above measurements. Could be posttraumatic. Mass not excluded. Recommend MRI with and without contrast. If patient cannot have MRI, CT with and without. 2. Acute/subacute inferior endplate fracture of L1. Underlying suspected osteoporosis. 3. Old healed mid sternal body fracture. 4. Significant linear areas of parenchymal scarring with some atelectasis in both lower lobes. Lungs otherwise clear. 5. Severe left glenohumeral osteoarthritis with large ossified intra-articular loose bodies. 6. Additional incidental chronic findings as discussed above. Electronically authenticated by: TAYLOR BUSBY Date: 09/16/2024 21:44 Dictated By: Taylor Busby D.O. Signed By: 09/16/242146 DD/ 43 TD/TT: Title Supervisor: [place] [address] CT Scan Report Signed Patient: VIKAS APONTE MR#: [id number] : 1940 Acct:[id number] Age/Sex: 83 / M ADM Date: 09/16/24 Loc: ER Attending Dr: Ordering Physician: Nati Ramires Date of Service: 09/16/24 Procedure(s): CT raji st w con Accession Number(s): [id number] cc: LIDIA MALIK [address] [address] Patient Name: VIKAS APONTE MRN: [id number] date: 1940 Sex: M Assigned Patient Location: ER Current Patient Loca tion: ED.MAIN Accession/Order Numb er: [id number] Exam Date: 19:30 Report Date: 09/16/2024 21:44 At the request of: NATI RAMIRES Procedure: CT chest w con EXAM: CT chest w con HISTORY: Ecchymosis COMPARISON: CT abdom en and pelvis with contrast obtained the same day dictated separately. Please s ee this report. TECHNIQUE: Following nonionic IV contrast, thin section axial scans obtained from thoracic inlet to upper abdomen with coronal and sagittal reformatted images. Omnipaque 300, 100 m L given IV without event. Dose reduction techn iques were achieved by using automated exposure control and/or adjustment of mA and/or kV according to patient size and/or use of iterative reconstruc tion technique. FINDINGS: There are prominent linear areas of scarring with some atelectasis in both lower lobes. Both evie ngs are hyperinflated with probable COPD. Lungs otherwise clear. No focal consolidation. No mass or nodule. No pneumothorax or pleural effusion. The central pulmonar y arteries enhance satisfactorily. No evidence of PE. Cardiac chambers are normal in size. No pericardial or mediastinal fluid. No mediastinal or hilar lymphadenopathy. Normal caliber thora cic aorta. Maximum diameter of ascending thoracic aorta 3.7 cm. No dissection. T here is some mild to moderate scattered calcific and soft plaque in the aortic arch along the descending thoracic aorta. Arch vessels are patent and unremarka ble. There is some mild calcifications at aortic valve. There are no acute thoracic spine fractures. There is a acute/subacute fracture at the inferior endp late of L1. Correlate with onset of injury and symptoms. There is diffuse oss eous demineralization. No lytic or blastic bone lesions. There is some chroni c wedging of several lower thoracic vertebrae at T7, T8, T9 and minimally at T10 . Old superior endplate Schmorl's node decompression changes at upper end plate of T4. Small Schmorl's node at inferior endplate of T7, T8 and T9. There is an old heal ed mid body sternal fracture. Healed with slight deformity and irregularity. No acute chest wall fracture. No acute rib fracture. There is an indeterm inate soft tissue density beginning in the right axillary region and extending towards the inner margin of the upper right humerus, incompletely imaged on this study. Uncertain etiology. The query mass versus resolving hematoma. This extends greater than 12 cm in length and on axial scans measures at le ast 6.6 x 5.5 cm. Recommend dedicated right shoulder and humeral imaging with MRI with and without. If unable to obtain MRI, CT with and without when stable. There is severe left glenohumeral osteoarthritis. Chronic ossified intra-articular loos e bodies along the anterior mid to lower margin of the left glenohumeral joint. These are large with several, largest measuring up to 2.9 cm. Extensive large bulky left humeral head osteophyte formation. No acute upper extremity fractures. No significant right glenohumeral joint narrowing. CT of the abdomen: obtained the same day dictated separately. Please see this report. Chest wall is intact . No obvious axillary adenopathy. C T/CT chest w con IMPRESSION: 1. Partial imaging o f indeterminate soft tissue mass versus resolving hematoma within the upper inn er margin of the right humerus extending from axilla distally, incomplete ly evaluated on this study. See above measurements. Could be posttraumatic. Ma ss not excluded. Recommend MRI with and without contrast. If patient cannot brunson ve MRI, CT with and without. 2. Acute/subacute inferior endplate fracture of L1. Underlying suspected osteoporosis. 3. Old healed mid st ernal body fracture. 4. Significant linea r areas of parenchymal scarring with some atelectasis in both lower lobes. Evie ngs otherwise clear. 5. Severe left glenohumeral osteoarthritis with large ossified intra-articular loose bodies. 6. Additional incide ntal chronic findings as discussed above. Electronically authenticated by: TAYLOR BUSBY Date: 09/16/2024 21:44 Dictated By: Taylor Busby D.O. Signed By: 09/16/242146 DD/ 43 TD/TT: Title Supervisor: CT head/brain wo con Reviewed date:09/17/2024 08:25:01 AM Interpretation: Performing Lab: Notes/Report: Source Facility: [facility]-[address] [place] [address] [place] [address] CT Scan Report Signed Patient: VIKAS APONTE MR#: [id number] : 1940 Acct:[id number] Age/Sex: 83 / M ADM Date: 09/16/24 Loc: ER Attending Dr: Ordering Physician: Nati Ramires Date of Service: 09/16/24 Procedure(s): CT head/brain wo con Accession Number(s): [id number] cc: HELENA,LIDIA [address] [address] Patient Name: VIKAS APONTE MRN: [id number] date: 1940 Sex: M Assigned Patient Location: ER Current Patient Location: Accession/Order Number: [id number] Exam Date: 09/16/2024 07:30 Report Date: 09/16/2024 19:56 At the request of: NATI RAMIRES Procedure: CT head/brain wo con CT OF THE BRAIN WITHOUT CONTRAST: 09/16/2024 7:30 AM EST HISTORY: Ecchymosis. TECHNIQUE: Contiguous axially collimated images were obtained through the intracranial compartment, from the vertex through the foramen magnum. Coronal and Sagittal reformatted images were prepared on a separate workstation and reviewed on the PACS for anatomic correlation. No contrast was administered. This CT exam was performed using one or more of the following dose reduction techniques: Automated exposure control, adjustment of the mA and/or kV according to patient size, or use of iterative reconstruction technique. Thin section coronal and sagittal images were reconstructed from the axial data set. All images were reviewed and interpreted. COMPARISON: None. FINDINGS: There is no intracranial hemorrhage or abnormal extra-axial fluid collection. To the extent of evaluated with noncontrast technique, there is no mass lesion appreciated. There is no mass-effect or shift of midline structures. There is global brain volume loss with prominence of the ventricles and CSF spaces. There is no evidence of hydrocephalus. There is no effacement of the basal cisterns. No evidence of acute ischemia. Patchy white matter low attenuation is nonspecific, but likely related to chronic small vessel ischemic change. There is no evidence of a lacunar infarct. The posterior fossa, brain stem, and fourth ventricle are normal. There is no tonsillar ectopy. The calvarium is intact, without destructive lesion or depressed fracture. Scalp tissues are intact. Normal orbits. No acute fractures. The mastoid air cells are well-aerated. The paranasal sinuses are normally aerated. CT/CT head/brain wo con IMPRESSION: 1. Changes of chronic small vessel ischemia in the periventricular white matter with secondary bilateral cerebral cortical atrophy. 2. No acute intracranial pathology. Electronically authenticated by: TAYLOR BUSBY Date: 09/16/2024 19:56 Dictated By: Taylor Busby D.O. Signed By: 09/16/241957 DD/ 55 TD/TT: Title Supervisor: [address] [address] [address] Scan Report Signed Patient: VIKAS APONTE MR#: [id number] : 1940 Acct:[id number] Age/Sex: 83 / M ADM Date: 09/16/24 Loc: ER Attending Dr: Ordering Physician: Nati Ramires Date of Service: 09/16/24 Procedure(s): CT head/brain wo con Accession Number(s): [id number] cc: LIDIA MALIK [place] [address] Patient Name: VIKAS APONTE MRN: [id number] date: 1940 Sex: M Assigned Patient Location: ER Current Patient Loca tion: ER Accession/Order Numb er: [id number] Exam Date: 07:30 Report Date: 09/16/2024 19:56 At the request of: NATI RAMIRES Procedure: CT head/b rain wo con CT OF THE BRAIN WITH OUT CONTRAST: 09/16/2024 7:30 AM EST HISTORY: Ecchymosis. TECHNIQUE: Contiguou s axially collimated images were obtained through the intracranial compart ment, from the vertex through the foramen magnum. Coronal and Sagittal reforma tted images were prepared on a separate workstation and reviewed on the PACS for anatomic correlation. No contrast was administered. This CT exam was performed using one or more of the following dose reduction techniques: Automate d exposure control, adjustment of the mA and/or kV according to patient size, or use of iterative reconstruction technique. Thin section coronal and sagittal images were reconstructed from the axial data set. All images were revi ewed and interpreted. COMPARISON: None. FINDINGS: There is no intracra nial hemorrhage or abnormal extra-axial fluid collection. To the extent of evaluated with noncontrast technique, there is no mass lesion appreciated. There i s no mass-effect or shift of midline structures. There is global brain volume loss with prominence of the ventricles and CSF spaces. There is no evidence of hydrocephalus. There is no effacement of the basal cisterns. No evidence of acute ischemia. Patchy white matter low attenuation is nonspecific, but lik bobo related to chronic small vessel ischemic change. There is no evidence of a lacunar infarct. The posterior fossa, brain stem, and fourth ventricle are normal. There is no tonsillar ectopy. The calvarium is int act, without destructive lesion or depressed fracture. Scalp tissues are in tact. Normal orbits. No acute fractures. The mastoid air cell s are well-aerated. The paranasal sinuses are normally aerated. C T/CT head/brain wo con IMPRESSION: 1. Changes of chroni c small vessel ischemia in the periventricular white matter with secondary bilat eral cerebral cortical atrophy. 2. No acute intracra nial pathology. Electronically authenticated by: TAYLOR BUSBY Date: 09/16/2024 19:56 Dictated By: Taylor Busby D.O. Signed By: 09/16/241957 DD/ 55 TD/TT: Title Supervisor: CT abdomen pelvis w con Reviewed date:09/17/2024 08:25:01 AM Interpretation: Performing Lab: Notes/Report: Source Facility: [place] [address] CT Scan Report Signed Patient: VIKAS APONTE MR#: [id number] : 1940 Acct:[id number] Age/Sex: 83 / M ADM Date: 09/16/24 Loc: ER Attending Dr: Ordering Physician: Nati Ramires Date of Service: 09/16/24 Procedure(s): CT abdomen pelvis w con Accession Number(s): [id number] cc: LIDIA MALIK [place] [address] Patient Name: VIKAS APONTE MRN: [id number] date: 1940 Sex: M Assigned Patient Location: ER Current Patient Location: ER Accession/Order Number: [id number] Exam Date: 09/16/2024 19:30 Report Date: 09/16/2024 21:36 At the request of: NATI RAMIRES Procedure: CT abdomen pelvis w con CT OF THE ABDOMEN AND PELVIS WITH CONTRAST: 09/16/2024 7:30 PM EST CLINICAL HISTORY: Bruising to chest. Back pain. COMPARISONS: None. TECHNIQUE: Thin section axial CT images were obtained from the lung bases to the pubis symphysis. This CT exam was performed using one or more of the following dose reduction techniques: Automated exposure control, adjustment of the mA and/or kV according to patient size, or use of iterative reconstruction technique. Thin section coronal and sagittal images were reconstructed from the axial data set. All images were reviewed and interpreted. CONTRAST: Intravenous contrast was administered. Type and amount is documented at the local institution. FINDINGS: LUNG BASES: There is some linear scarring and some atelectasis at both lung bases. Lung bases otherwise clear. No layering pleural effusion. No sliding-type hiatal hernia. LIVER: Simple cyst at the posterior inferior right hepatic lobe measuring 1.5 cm maximum diameter with mean attenuation values 18 Hounsfield units. Mild splenic enlargement. Normal portal vein enhancement. Liver otherwise negative. GALLBLADDER: Normal. BILIARY TREE: No ductal dilatation. PANCREAS: Normal. SPLEEN: Spleen is enlarged. Splenic length almost 14 cm. No splenic mass or cyst. ADRENALS: Normal. KIDNEYS: Normal, without urolithiasis or hydronephrosis. URINARY BLADDER: Layering hyperdense debris versus calcification at dependent bladder base to the right of midline. Linear hyperdensities noted. Bladder otherwise negative. Correlate urinalysis. PELVIC STRUCTURES: Enlarged prostate. Prostate extends 5.1 cm AP and 5.1 cm transverse. BOWEL: No evidence of obstruction, gross mass, or inflammatory change. There is no significant diverticulosis. There is no evidence of diverticulitis. There is a severe colonic stool retention with compact feces throughout large bowel from cecum to distal transverse colon and to lesser degree throughout the descending and sigmoid colon but still prominent. Correlate for fecal impaction and constipation. APPENDIX: The appendix is not clearly identified and there are no secondary findings to suggest acute appendicitis. LYMPH NODES: No pathologically enlarged lymph nodes identified. PERITONEUM: No intraperitoneal free air. No free intraperitoneal fluid. MESENTERY: Unremarkable. RETROPERITONEUM: The retroperitoneum is unremarkable. AORTA: Aorta and iliac arteries and branch vessels are patent and normal in caliber. No dissection. Scattered atherosclerotic calcific plaque throughout the wall of the aorta. BODY WALL: No body wall mass. OSSEOUS STRUCTURES: Age-indeterminate but overall chronic appearing superior endplate compression burst fracture of L4 with retropulsion of upper endplate. As can Desi at least moderate canal stenosis at L3-4. There is indeterminate fracture of the inferior endplate of L1. This appears more acute to subacute. Correlate with symptoms. There is some minor edema around the inferior endplate fracture of L1 suggesting more acute to subacute process. No paraspinal hematoma or edema at L4 suggesting more chronic injury. No additional fractures are seen within the abdomen or pelvis. Joint spaces are maintained. Slight convex left curvature of L4-5. Alignment otherwise satisfactory. No spinal listhesis or dislocation. There is some mild severe L5-S1 degenerative disc disease and loss of disc height loss and moderate posteriorly at L4-5. Both L4-5 and L5-S1 there is significant bilateral neural foraminal stenosis from disc osteophyte bulge. CT/CT abdomen pelvis w con IMPRESSION: 1. Age-indeterminate but more acute versus subacute inferior endplate fracture of L1 vertebrae. This could explain patient's low back pain. 2. Indeterminant cyst more severe superior endplate compression fracture of L4. There is a component appears more chronic although acute on chronic injury not excluded. 3. If warranted, MRI lumbar spine may better delineate chronicity of the above-described lumbar spine fractures. 4. Severe compact fecal retention throughout most of large bowel suggesting constipation and/or impaction. 5. Hepatosplenomegaly. 6. Simple right hepatic cyst. 7. Enlarged prostate. 8. Small stones and/or debris. Electronically authenticated by: TAYLOR BUSBY Date: 09/16/2024 21:36 Dictated By: Taylor Busby D.O. Signed By: 09/16/242138 DD/ 35 TD/TT: Title Supervisor: [place] [address] CT Scan Report Signed Patient: IVKAS APONTE MR#: [id number] : 1940 Acct:[id number] Age/Sex: 83 / M ADM Date: 09/16/24 Loc: ER Attending Dr: Ordering Physician: Nati Ramires Date of Service: 09/16/24 Procedure(s): CT abd omen pelvis w con Accession Number(s): [id number] cc: LIDIA MALIK [place] [address] [place], [place] [address] Patient Name: VIKAS APONTE MRN: [id number] date: 1940 Sex: M Assigned Patient Location: ER Current Patient Loca tion: ER Accession/Order Numb er: [id number] Exam Date: 19:30 Report Date: 09/16/2024 21:36 At the request of: NATI RAMIRES Procedure: CT abdome n pelvis w con CT OF THE ABDOMEN AN D PELVIS WITH CONTRAST: 09/16/2024 7:30 PM EST CLINICAL HISTORY: Bruising to chest. Back pain. COMPARISONS: None. TECHNIQUE: Thin sect ion axial CT images were obtained from the lung bases to the pubis symphysis. This CT exam was performed using one or more of the following dose reduc tion techniques: Automated exposure control, adjustment of the mA and/or kV according to patient size, or use of iterative reconstruction technique. Thin sect ion coronal and sagittal images were reconstructed from the axial data set. All images were reviewed and interpreted. CONTRAST: Intravenou s contrast was administered. Type and amount is documented at the local institution. FINDINGS: LUNG BASES: There is some linear scarring and some atelectasis at both lung bases. Lung bases otherwise clear. No layering pleural effusion. No sliding-type hiatal hernia. LIVER: Simple cyst a t the posterior inferior right hepatic lobe measuring 1.5 cm maximum diameter with mean attenuation values 18 Hounsfield units. Mild splenic enlargement. Normal portal vein enhancement. Liver otherwise negative. GALLBLADDER: Normal. BILIARY TREE: No soni leroy dilatation. PANCREAS: Normal. SPLEEN: Spleen is enlarged. Splenic length almost 14 cm. No splenic mass or cyst. ADRENALS: Normal. KIDNEYS: Normal, wit hout urolithiasis or hydronephrosis. URINARY BLADDER: Lay ering hyperdense debris versus calcification at dependent bladder base to the right of midline. Linear hyperdensities noted. Bladder otherwise negative. Correlate urinalysis. PELVIC STRUCTURES: Enlarged prostate. Prostate extends 5.1 cm AP and 5.1 cm transverse. BOWEL: No evidence o f obstruction, gross mass, or inflammatory change. There is no significant diverticulosis. There is no evidence of diverticulitis. There is a severe colonic sto ol retention with compact feces throughout large bowel from cecum to distal transverse colon and to lesser degree throughout the descending and sigmoid colon bu t still prominent. Correlate for fecal impaction and constipation. APPENDIX: The append ix is not clearly identified and there are no secondary findings to suggest acute appendicitis. LYMPH NODES: No pathologically enlarged lymph nodes identified. PERITONEUM: No intraperitoneal free air. No free intraperitoneal fluid. MESENTERY: Unremarkable. RETROPERITONEUM: The retroperitoneum is unremarkable. AORTA: Aorta and ann ac arteries and branch vessels are patent and normal in caliber. No dissecti on. Scattered atherosclerotic calcific plaque throughout the wall of the aorta. BODY WALL: No body w all mass. OSSEOUS STRUCTURES: Age-indeterminate but overall chronic appearing superior endplate compression burst fracture of L4 with retropulsion of upper endplate. As can Desi at [address] moderate canal stenosis at L3-4. There is indetermina te fracture of the inferior endplate of L1. This appears more acute to subacu te. Correlate with symptoms. There is some minor edema around the inferior endplate fracture of L1 suggesting more acute to subacute process. No paraspin al hematoma or edema at L4 suggesting more chronic injury. No additional fractu res are seen within the abdomen or pelvis. Joint spaces are maintained. Slight convex left curvature of L4-5. Alignment otherwise satisfactory. No spinal listhesis or dislocation. There is some mild severe L5-S1 degenerative disc disease and los s of disc height loss and moderate posteriorly at L4-5. Both L4-5 and L5-S1 there is significant bilateral neural foraminal stenosis from disc osteophyte bulge. C T/CT abdomen pelvis w con IMPRESSION: 1. Age-indeterminate but more acute versus subacute inferior endplate fracture of L1 vertebrae. Thi s could explain patient's low back pain. 2. Indeterminant cys t more severe superior endplate compression fracture of L4. There is a component appears more chronic although acute on chronic injury not excluded. 3. If warranted, MRI lumbar spine may better delineate chronicity of the above-described lumb ar spine fractures. 4. Severe compact fe kimber retention throughout most of large bowel suggesting constipation and/or impaction. 5. Hepatosplenomegaly. 6. Simple right hepa tic cyst. 7. Enlarged prostate. 8. Small stones and/ or debris. Electronically authenticated by: TAYLOR BUSBY Date: 09/16/2024 21:36 Dictated By: Taylor Busby D.O. Signed By: 09/16/242138 DD/ 35 TD/TT: Title Supervisor: CT cervical spine wo con Reviewed date:09/17/2024 08:25:01 AM Interpretation: Performing Lab: Notes/Report: Source Facility: [place] [address] CT Scan Report Signed Patient: VIKAS APONTE MR#: [id number] : 1940 Acct:[id number] Age/Sex: 83 / M ADM Date: 09/16/24 Loc: ER Attending Dr: Ordering Physician: Nati Ramires Date of Service: 09/16/24 Procedure(s): CT cervical spine wo con Accession Number(s): [id number] cc: LIDIA MALIK [place] [address] Patient Name: VIKAS APONTE MRN: [id number] date: 1940 Sex: M Assigned Patient Location: ER Current Patient Location: ED.MAIN Accession/Order Number: [id number] Exam Date: 09/16/2024 19:30 Report Date: 09/16/2024 21:27 At the request of: NATI RAMIRES Procedure: CT cervical spine wo con EXAM: CT cervical spine wo con HISTORY: Ecchymosis to the chest. Poor historian. TECHNIQUE: Axial CT scans through the cervical spine were obtained without contrast administration. Sagittal and coronal reconstruction images were obtained. Dose reduction techniques were achieved by using: automated exposure control and/or adjustment of mA and /or kV according to patient size and/or the use of an iterative reconstruction technique. COMPARISON: None. FINDINGS: No acute fracture or posttraumatic malalignment is shown. A small posterior central disc protrusion each at C3-C4 and C5-C6 without central spinal stenosis. Moderate stenosis of the left C5-C6 neural foramen secondary to uncovertebral hypertrophy. The prevertebral soft tissue space appears normal. Visualized intracranial contents appear normal. The visualized neck shows no adenopathy. Visualized lung apices are clear. CT/CT cervical spine wo con IMPRESSION: No acute fracture or posttraumatic malalignment. Electronically authenticated by: SONI LOUIE Date: 09/16/2024 21:27 Dictated By: Soni Louie M.D. Signed By: 09/16/242128 DD/ 26 TD/TT: Title Supervisor: [place] [address] CT Scan Report Signed Patient: VIKAS APONTE MR#: [id number] : 1940 Acct:[id number] Age/Sex: 83 / M ADM Date: 09/16/24 Loc: ER Attending Dr: Ordering Physician: Nati Ramires Date of Service: 09/16/24 Procedure(s): CT cer vical spine wo con Accession Number(s): [id number] cc: LIDIA MALIK [place] [id number] Patient Name: VIKAS APONTE MRN: [id number] date: 1940 Sex: M Assigned Patient Location: ER Current Patient Loca tion: ED.MAIN Accession/Order Numb er: [id number] Exam Date: 19:30 Report Date: 09/16/2024 21:27 At the request of: NATI RAMIRES Procedure: CT cervic al spine wo con EXAM: CT cervical sp ine wo con HISTORY: Ecchymosis to the chest. Poor historian. TECHNIQUE: Axial CT scans through the cervical spine were obtained without contrast administrat ion. Sagittal and coronal reconstruction images were obtained. Dose reduc tion techniques were achieved by using: automated exposure control and/or adjus tment of mA and /or kV according to patient size and/or the use of an iterative reconstruction technique. COMPARISON: None. FINDINGS: No acute fracture or posttraumatic malalignment is shown. A small posterior ce ntral disc protrusion each at C3-C4 and C5-C6 without central spinal steno sis. Moderate stenosis of the left C5-C6 neural foramen secondary to uncovertebral hypertrophy. The prevertebral sof t tissue space appears normal. Visualized intracranial contents appear norm al. The visualized neck shows no adenopathy. Visualized lung apices are clear. C T/CT cervical spine wo con IMPRESSION: No acute fracture or posttraumatic malalignment. Electronically authenticated by: SONI LOUIE Date: 09/16/2024 21:27 Dictated By: Wali Louie M.D. Signed By: 09/16/242128 DD/ 26 TD/TT: Title Supervisor: US venous doppler UE RT Reviewed date:09/17/2024 08:25:01 AM Interpretation: Performing Lab: Notes/Report: Source Facility: [place] [address] Ultrasound Report Signed Patient: VIKAS APONTE MR#: [id number] : 1940 Acct:[id number] Age/Sex: 83 / M ADM Date: 09/16/24 Loc: ER Attending Dr: Ordering Physician: Nati Ramires Date of Service: 09/16/24 Procedure(s): US venous doppler UE RT Accession Number(s): [id number] cc: LIDIA MALIK ; Nati Ramires [place] [id number] Patient Name: VIKAS APONTE MRN: [id number] date: 1940 Sex: M Assigned Patient Location: ED.MAIN Current Patient Location: ER Accession/Order Number: [id number] Exam Date: 09/16/2024 20:55 Report Date: 09/16/2024 22:39 At the request of: NATI RAMIRES Procedure: US venous doppler UE RT ULTRASOUND OF THE UPPER EXTREMITY VENOUS RIGHT HISTORY: Extremity edema and pain. In an 83-year-old male COMPARISON: None. TECHNIQUE: Multiple sonographic images are performed of the extremity venous system with both color Doppler and grayscale Doppler. Doppler spectral analysis and color flow were performed of the extremity. FINDINGS: Limited evaluation due to edema bruising in a patient who is unable to move his arm. There is no evidence of thrombus within the visualized veins. There is adequate phasic and spontaneous flow. There is adequate compression. There is adequate augmentation. No evidence of DVT within the visualized veins of the visualized extremity. There is an avascular large complex mixed echogenic masslike area in the area of bruising that measures 61 x 42 mm. US/US venous doppler UE RT IMPRESSION: 1. Significant soft tissue swelling with a large complex avascular masslike region/complex cystic area most likely a hematoma that measures greater than 6 cm. 2. No evidence of DVT within visualized veins of the right upper extremity. Electronically authenticated by: INDIO KENNEY Date: 09/16/2024 22:39 Dictated By: Indio Kenney M.D. Signed By: 09/16/242240 DD/ 38 TD/TT: Title Supervisor: [place] [address] Ultrasound Report Signed Patient: VIKAS APONTE MR#: [id number] : 1940 Acct:[id number] Age/Sex: 83 / M ADM Date: 09/16/24 Loc: ER Attending Dr: Ordering Physician: Nati Ramires Date of Service: 09/16/24 Procedure(s): US norma ous doppler UE RT Accession Number(s): [id number] cc: LIDIA MALIK ; Nati Ramires [place] [id number] Patient Name: VIKAS APONTE MRN: [id number] date: 1940 Sex: M Assigned Patient Location: ED.MAIN Current Patient Loca tion: ER Accession/Order Numb er: [id number] Exam Date: 20:55 Report Date: 09/16/2024 22:39 At the request of: NATI RAMIRES Procedure: US venous doppler UE RT ULTRASOUND OF THE UP PER EXTREMITY VENOUS RIGHT HISTORY: Extremity e ap and pain. In an 83-year-old male COMPARISON: None. TECHNIQUE: Multiple sonographic images are performed of the extremity venous system with both col or Doppler and grayscale Doppler. Doppler spectral analysis and color flow were performed of the extremity. FINDINGS: Limited evaluation d ue to edema bruising in a patient who is unable to move his arm. There is no lilian dence of thrombus within the visualized veins. There is adequate phasic and spontaneous flow. There is adequate compression. There is adequate augmentatio n. No evidence of DVT within the visualized veins of the visualized extremity . There is an avascular large complex mixed echogenic masslike area in the area of bruising that measures 61 x 42 mm. U S/US venous doppler UE RT IMPRESSION: 1. Significant soft tissue swelling with a large complex avascular masslike region/complex cysti c area most likely a hematoma that measures greater than 6 cm. 2. No evidence of DV T within visualized veins of the right upper extremity. Electronically authenticated by: INDIO KENNEY Date: 09/16/2024 22:39 Dictated By: Indio Kenney M.D. Signed By: 09/16/242240 DD/ 38 TD/TT: Title Supervisor: CBC AUTO DIFF Reviewed date:09/17/2024 08:25:01 AM Interpretation: Performing Lab: Notes/Report: [facility] , White Blood Count 33.3 4.0-11.0 10 3/uL BIRGIT Cifuentes at 0621 RESULTS CALLED TO Med Surg Danisha Fox RN @BY Ousmane Galvan Red Blood Count 6.47 4.70-6.10 10 6/uL Hemoglobin 13.1 14.0-18.0 g/dL Hematocrit 45.4 42.0-54.0 % Mean Corpuscular Volume 70.2 80.0-94.0 fL Mean Corpuscular Hemoglobin 20.2 25.9-34.0 pg Mean Corpuscular HGB Conc 28.9 29.9-35.2 g/dL Red Cell Distribution Width 25.0 11.0-15.0 % Platelet Count 2842 150-450 10 3/uL RESULTS CALLED TO Med Surg Danisha Fox RN @BY Ousmane Cifuentes MLT at 0621 Mean Platelet Volume 9.3 9.5-13.5 fL Performing Lab: see note ML - [facility] LB PROF 14(COMP METB) Reviewed date:09/17/2024 08:25:01 AM Interpretation: Performing Lab: Notes/Report: [facility] , Sodium 138 136-145 mmol/L Potassium 3.7 3.5-5.1 mmol/L Chloride 106 98-107 mmol/L Carbon Dioxide 24.2 21.0-32.0 mmol/L Anion Gap 11.5 Glucose 90 74-106 mg/dL Blood Urea Nitrogen 22.0 7.0-18.0 mg/dL Creatinine 1.10 0.70-1.30 mg/dL Estimated GFR ( [place] >60 >=60 mL/min/1.73m 2 Estimated GFR (Non- [place] >60 >=60 mL/min/1.73m 2 BUN Creatinine Ratio 20.0 Calcium 8.9 8.5-10.1 mg/dL Bilirubin Total 1.5 0.2-1.0 mg/dL Aspartate Amino Transferase 27 15-37 U/L Alanine Aminotransferase 14 16-63 U/L Alkaline Phosphatase 90 46-116 U/L Total Protein 5.3 6.4-8.2 g/dL Albumin Level 2.4 3.4-5.0 g/dL Globulin 2.9 Albumin Globulin Ratio 0.8 Performing Lab: see note - [facility] LB Manual Differential Reviewed date:09/17/2024 08:25:01 AM Interpretation: Performing Lab: Notes/Report: [facility] , Segmented Neutrophils % Manual 88.0 43.0-75.0 Lymphocytes Percent Manual 3.0 20.5-60.0 % Monocytes Percent Manual 7.0 1.7-12.0 % Eosinophils Percent Manual 1.0 0.9-7.0 % Basophils Percent Manual 1.0 0.2-2.0 % Segmented Neut Absolute Manual 29.30 1.4-6.5 10 3/uL Lymphocytes Absolute Manual 0.99 1.20-3.80 10 3/uL Monocytes Absolute Manual 2.33 0.30-0 .80 10 3/uL Eosinophils Absolute Manual 0.33 0.00-0.70 10 3/uL Basophils Abs Manual 0.33 0.00-0.10 1 0 3/uL Nucleated Red Blood Cells 4 Polychromasia 1+ Hypochromasia 1+ Anisocytosis 2+ Performing Lab: see note - [facility] LB CBC AUTO DIFF Reviewed date:09/19/2024 02:27:46 PM Interpretation: Performing Lab: Notes/Report: [facility] , White Blood Count 34.2 4.0-11.0 10 3/uL RESULT S CALLED TO CHANELLE RUIZ RN Red Blood Count 6.47 4.70-6.10 10 6/uL Hemoglobin 13.1 14.0-18.0 g/dL Hematocrit 45.8 42.0-54.0 % Mean Corpuscular Volume 70.8 80.0-94.0 fL Mean Corpuscular Hemoglobin 20.2 25.9-34.0 pg Mean Corpuscular HGB Conc 28.6 29.9-35.2 g/dL Red Cell Distribution Width 25.4 11.0-15.0 % Platelet Count 2260 150-450 10 3/uL RESULTS CA LLED TO CHANELLE RUIZ RN Mean Platelet Volume 9.0 9.5-13.5 fL Performing Lab: see note - [facility] LB PROF CHEM 8 (BAS METB) Reviewed date:09/19/2024 02:27:46 PM Interpretation: Performing Lab: Notes/Report: [facility] , Sodium 139 136-145 mmol/L Potassium 4.2 3.5-5.1 mmol/L Chloride 104 98-107 mmol/L Carbon Dioxide 21.7 21.0-32.0 mmol/L Anion Gap 17.5 Glucose 84 74-106 mg/dL Blood Urea Nitrogen 27.0 7.0-18.0 mg/dL Creatinine 1.35 0.70-1.30 mg/dL Estimated GFR ( [place] >60 >=60 mL/min/1.73m 2 Estimated GFR (Non- [place] 51 >=60 mL/min/1.73m 2 BUN Creatinine Ratio 20.0 Calcium 9.0 8.5-10.1 mg/dL Performing Lab: see note ML - [facility] LB Manual Differential Reviewed date:09/19/2024 02:27:46 PM Interpretation: Performing Lab: Notes/Report: [facility] , Segmented Neutrophils % Manual 87.0 43.0-75.0 Band Neutrophils % 1.0 0-5 % Lymphocytes Percent Manual 2.0 20.5-60.0 % Monocytes Percent Manual 6.0 1.7-12.0 % Eosinophils Percent Manual 3.0 0.9-7.0 % Basophils Percent Manual 1.0 0.2-2.0 % Segmented Neut Absolute Manual 29.75 1.4-6.5 10 3/uL Band Neutrophils Absolute 0.3 0.0-0.3 10 3/uL Lymphocytes Absolute Manual 0.68 1.20-3.80 10 3/uL Monocytes Absolute Manual 2.05 0.30-0 .80 10 3/uL Eosinophils Absolute Manual 1.02 0.00-0.70 10 3/uL Basophils Abs Manual 0.34 0.00-0.10 1 0 3/uL Nucleated Red Blood Cells 7 Polychromasia 1+ Hypochromasia 1+ Anisocytosis 1+ Performing Lab: see note ML - [facility] LB MRSA Screening Culture Reviewed date:09/20/2024 04:16:26 PM Interpretation: Performing Lab: Notes/Report: [facility] , MRSA Screening Culture See Below For Report MRSA Screening Culture MRSA Screening Culture Negative MRSA Screening Culture MRSA Screening Culture Performed at[facility] MRSA Screening Culture [address] [place] [id number] MRSA Screening Culture MRSA Screening Culture Cardiology Technician: Severo Vincent PhD, Phone: [phone] MRSA Screening Culture Performing Lab: see note - [facility] LB SEE REPORT - Science Instructor Id information not found for OBX-specific event producer legend VANCOMYCIN TROUGH Reviewed date:09/19/2024 02:27:46 PM Interpretation: Performing Lab: Notes/Report: [facility] , Vancomycin Trough 17.6 5.0-20.0 ug/mL Performing Lab: see note ML - [facility] LB ECG 12 lead Reviewed date:09/17/2024 08:25:01 AM Interpretation: Performing Lab: Notes/Report: Source Facility: [facility]-[address] [place] [address] [place] [address] Electrocardiograph Report Signed Patient: VIKAS APONTE MR#: [id number] : 1940 Acct:[id number] Age/Sex: 83 / M ADM Date: 09/16/24 Loc: MS 232-[address]: Piotr Coello M.D. Ordering Physician: Nati Ramires Date of Service: 09/16/24 Procedure(s): ECG 12 lead Accession Number(s): [id number] cc: [facility] Test Date: 2024-09-16 Pat Name: VIKAS APONTE Department: Room: - Gender: Male Client Technologies Specialist: : 1940 Requested By: LIDIA MALIK Order Number: [id number] Reading MD: PIOTR COELLO Measurements Intervals [place] Rate: 87 P: 90 MD: 146 QRS: 76 QRSD: 94 T: 81 QT: 376 QTc: 420 Interpretive Statements 1100 Sinus rhythm 1470 with occasional supraventricular premature complexes 9140 abnormal rhythm ECG No previous ECG available for comparison Electronically Signed On 09-17-2024 5:03:19 EST by PIOTR COELLO Dictated By: Piotr Coello M.D. Signed By: 09/17/24502 DD/ 36 TD/TT: Title Supervisor: [place] [address] Electrocardiograph Report Signed Patient: VIKAS APONTE MR#: [id number] : 1940 Acct:[id number] Age/Sex: 83 / M ADM Date: 09/16/24 Loc: MS 232-[address]: Fantasma Coello M.D. Ordering Physician: Nati Ramires Date of Service: 09/16/24 Procedure(s): ECG 12 lead Accession Number(s): [id number] cc: [facility] Test Date: 2024-09-16 Pat Name: VIKAS ZHOU E Department: 93 Room: - Gender: Male Client [employer] Specialist: : 1940 Requ ested By: LIDIA MALIK Order Number: [id number] Reading MD: PIOTR COELLO Measurements Intervals [place] Rate: 87 P: 90 MD: 146 QRS: 76 QRSD: 94 T: 81 QT: 376 QTc: 420 Interpretive Statements 1100 Sinus rhythm 1470 with occasional supraventricular premature complexes 9140 abnormal rhy thm ECG No previous ECG avai lable for comparison Electronically Sharon d On 09-17-2024 5:03:19 EST by PIOTR COELLO Dictated By: Jules Coello M.D. Signed By: 09/17/24502 DD/ 1837 TD/TT: Title Supervisor: Manual Differential Reviewed date:09/17/2024 08:25:01 AM Interpretation: Performing Lab: Notes/Report: [facility] , Segmented Neutrophils % Manual 90.0 43.0-75.0 Band Neutrophils % 2.0 0-5 % Lymphocytes Percent Manual 2.0 20.5-60.0 % Monocytes Percent Manual 5.0 1.7-12.0 % Eosinophils Percent Manual 0.0 0.9-7.0 % Basophils Percent Manual 1.0 0.2-2.0 % Segmented Neut Absolute Manual 37.26 1.4-6.5 10 3/uL Band Neutrophils Absolute 0.8 0.0-0.3 10 3/uL Lymphocytes Absolute Manual 0.82 1.20-3.80 10 3/uL Monocytes Absolute Manual 2.07 0.30-0 .80 10 3/uL Eosinophils Absolute Manual 0.00 0.00-0.70 10 3/uL Basophils Abs Manual 0.41 0.00-0.10 1 0 3/uL Nucleated Red Blood Cells 5 Giant Platelets 1+ Polychromasia 1+ Hypochromasia 1+ Anisocytosis 2+ Performing Lab: see note ML - [facility] LB Blood Culture 2 Reviewed date:09/23/2024 12:58:18 PM Interpretation: Performing Lab: Notes/Report: LEFT HAND [facility] , Blood Culture 2 See Below For Report Blood Culture 2 NG5D NO GROWTH AT 5 DAYS. Performing Lab: see note ML - [facility] LB Blood Culture 1 Reviewed date:09/23/2024 12:58:18 PM Interpretation: Performing Lab: Notes/Report: LEFT AC [facility] , Blood Culture 1 See Below For Report Blood Culture 1 NG5D NO GROWTH AT 5 DAYS. Performing Lab: see note ML - [facility] LB CT humerus RT wo con Reviewed date:09/19/2024 02:27:46 PM Interpretation: Performing Lab: Notes/Report: Source Facility: [facility]-[address] [place] [address] [place] [address] CT Scan Report Signed Patient: VIKAS APONTE MR#: [id number] : 1940 Acct:[id number] Age/Sex: 83 / M ADM Date: 09/16/24 Loc: MS 232-[address]: Jameson Gallagher D.O. Ordering Physician: Jameson Gallagher D.O. Date of Service: 09/18/24 Procedure(s): CT humerus RT wo con Accession Number(s): [id number] cc: LIDIA MALIK [place] [id number] Patient Name: VIKAS APONTE MRN: [id number] date: 1940 Sex: M Assigned Patient Location: MS Current Patient Location: MS Accession/Order Number: [id number] Exam Date: 09/18/2024 15:20 Report Date: 09/18/2024 17:19 At the request of: JAMESON GALLAGHER Procedure: CT humerus RT wo con EXAM: CT humerus RT wo con HISTORY: The patient is an 83-year-old male, large right hematoma COMPARISON: None. TECHNIQUE: CT images were obtained through the right humerus and upper arm without intravenous contrast and reformatted in 2 dimensions. Dose reduction techniques were achieved by using automated exposure control and/or adjustment of mA and/or kV according to patient size and/or use of iterative reconstruction technique. FINDINGS: There is diffuse enlargement of the right biceps muscle. This has a density less than normal muscle, and as such this is enlarged right biceps muscle appears to be filled with fluid rather than with blood products. There is also strandy edema within the subcutaneous tissues circumferentially around the upper arm. I cannot evaluate the integrity of the biceps muscle or of the proximal and distal biceps tendons with this CT scan. If there is a clinical concern for a rupture of the proximal proximal biceps tendon, an MRI of the right shoulder would be a more sensitive and specific imaging modality. If there is a clinical concern for a rupture of the distal biceps tendon, an MRI of the right elbow would be a more sensitive and specific imaging modality. The bone images demonstrate no fractures or cortical discontinuities throughout the length of the right humerus. There are no areas of bone destruction, periosteal reaction, or soft tissue gas to suggest osteomyelitis. There is a subacute appearing fracture of at least one of the right lower ribs, seen on axial image 153. CT/CT humerus RT wo con IMPRESSION: 1. Nonspecific diffuse swelling and edema of the right biceps muscle and surrounding subcutaneous tissues. 2. Subacute right lower rib fracture. Electronically authenticated by: SHIRA HOLLIS Date: 09/18/2024 17:19 Dictated By: SHIRA HOLLIS M.D. Signed By: 09/18/24 172 DD/ 18 TD/TT: Title Supervisor: [place] [address] CT Scan Report Signed Patient: VIKAS APONTE MR#: [id number] : 1940 Acct:[id number] Age/Sex: 83 / M ADM Date: 09/16/24 Loc: [place] 232-[address]: Paty Gallagher D.O. Ordering Physician: Jameson Gallagher D.O. Date of Service: 09/18/24 Procedure(s): CT hum erus RT wo con Accession Number(s): [id number] cc: LIDIA MALIK [place] [address] Patient Name: VIKAS APONTE MRN: [id number] date: 1940 Sex: M Assigned Patient Location: MS Current Patient Loca tion: MS Accession/Order Numb er: [id number] Exam Date: 15:20 Report Date: 09/18/2024 17:19 At the request of: JAMESON GALLAGHER Procedure: CT humeru s RT wo con EXAM: CT humerus RT wo con HISTORY: The patient is an 83-year-old male, large right hematoma COMPARISON: None. TECHNIQUE: CT images were obtained through the right humerus and upper arm without intravenous contrast and reformatted in 2 dimensions. Dose reduction techn iques were achieved by using automated exposure control and/or adjustment of mA and/or kV according to patient size and/or use of iterative reconstruc tion technique. FINDINGS: There is diffuse enlargement of the right biceps muscle. This has a density less than no rmal muscle, and as such this is enlarged right biceps muscle appears to be filled with fluid rather than with blood products. There is also strand y edema within the subcutaneous tissues circumferentially around the upper arm. I cannot evaluate th e integrity of the biceps muscle or of the proximal and distal biceps tendon s with this CT scan. If there is a clinical concern for a rupture of the proxi mal proximal biceps tendon, an MRI of the right shoulder would be a more sens itive and specific imaging modality. If there is a clinical concern for a ruptur e of the distal biceps tendon, an MRI of the right elbow would be a more sens itive and specific imaging modality. The bone images demonstrate no fractures or cortical discontinuities throughout the length of the ri ght humerus. There are no areas of bone destruction, periosteal reaction, or soft tissue gas to suggest osteomyelitis. There is a subacute appearing fracture of at least one of the right lower ribs, seen on axial image 153. C T/CT humerus RT wo con IMPRESSION: 1. Nonspecific diffu se swelling and edema of the right biceps muscle and surrounding subcutan eous tissues. 2. Subacute right lo wer rib fracture. Electronically authenticated by: SHIRA HOLLIS Date: 09/18/2024 17:19 Dictated By: SHIRA HOLLIS M.D. Signed By: 09/18/241720 DD/ 18 TD/TT: Title Supervisor: PROF MARK Mack (JUSTIN MCADAMS) Reviewed date:09/19/2024 02:27:46 PM Interpretation: Performing Lab: Notes/Report: [facility] , Sodium 139 136-145 mmol/L Potassium 4.2 3.5-5.1 mmol/L Chloride 104 98-107 mmol/L Carbon Dioxide 24.6 21.0-32.0 mmol/L Anion Gap 14.6 Glucose 87 74-106 mg/dL Blood Urea Nitrogen 26.0 7.0-18.0 mg/dL Creatinine 1.18 0.70-1.30 mg/dL Estimated GFR ( [place] >60 >=60 mL/min/1.73m 2 Estimated GFR (Non- [place] 59 >=60 mL/min/1.73m 2 BUN Creatinine Ratio 22.0 Calcium 8.7 8.5-10.1 mg/dL Performing Lab: see note ML - [facility] LB CBC AUTO DIFF Reviewed date:09/19/2024 02:27:46 PM Interpretation: Performing Lab: Notes/Report: [facility] , White Blood Count 28.0 4.0-11.0 10 3/uL Red Blood Count 6.25 4.70-6.10 10 6/uL Hemoglobin 12.5 14.0-18.0 g/dL Hematocrit 43.8 42.0-54.0 % Mean Corpuscular Volume 70.1 80.0-94.0 fL Mean Corpuscular Hemoglobin 20.0 25.9-34.0 pg Mean Corpuscular HGB Conc 28.5 29.9-35.2 g/dL Red Cell Distribution Width 24.6 11.0-15.0 % Platelet Count 194 150-450 10 3/uL RESULTS CALLED TO CYNDEE MONTES RN @BY Susy Barba at 0629 Mean Platelet Volume 9.3 9.5-13.5 fL Neutrophils Percent Auto 81.8 43.0-75.0 % Lymphocytes Percent Auto 2.6 20.5-60.0 % Monocytes Percent Auto 9.4 1.7-12.0 % Eosinophils Percent Auto 1.6 0.9-7.0 % Basophils Percent Auto 1.2 0.2-2.0 % Immature Granulocytes Pct Auto 3.4 0.0-0.5 % Neutrophils Absolute Auto 22.9 1.4-6.5 10 3/uL Lymphocytes Absolute Auto 0.7 1.2-3.8 10 3/uL Monocytes Absolute Auto 2.6 0.3-0.8 10 3/uL Eosinophils Absolute Auto 0.5 0.0-0.7 10 3/uL Basophils Absolute Auto 0.3 0.0-0.1 10 3/uL Immature Granulocytes Abs Auto 0.95 0.00-0.03 10 3/uL Performing Lab: see note ML - [facility] LB Reason For Referral No Information Medications Medication SIG (Take, Route, Frequency, Duration) Notes Start Date End Date Status Levsin/SL 0.125 MG 1 tablet under the t ongue and allow to dissolve as needed Sublingual Three times a day for 10 days 02/13/2024 Active Chlorthalidone 25 MG 1 tablet in the mor quentin with food Orally Not-Taking Hydroxyurea 500 MG 1 capsule Orally Once a day Not-Taking NIFEdipine ER 60 MG 1 tablet on an empty stomach Orally Once a day for 30 days 10/30/2023 Not-Taking Social History Tobacco Use: Social History Observation Description Date Details (start date - stop date) Former Smoker 11/03/1962 - 11/03/1971 Tobacco Use/Smoking Question Answer Notes Patient is a former smoker When did you start smoking? 11/03/1962 When did you stop smoking? 11/03/1971 Alcohol Screen (Audit-C) Question Answer Notes Did you have a drink contain ing alcohol in the past year? Yes How often did you have 6 or more drinks on one occasion in the past year? Never (0 point) How many drinks did you have on a typical day when you were drinking in the past year? 1 or 2 drinks (0 point) How often did you have a dri nk containing alcohol in the past year? Less than monthly (1 point) Points 1 Interpretation Negative Problems Problem Type SNOMED Code ICD Code Onset Dates Problem Status W/U Status Risk Notes Problem Hyperlipidemia (86106388) Hyperlipidemia (E78.5) Active confirmed Problem Hypothyroid (53258191) Hypothyroid (E03.9) Active confirmed Problem Lymphedema (14522249) Lymphedema (I89.0) Active confirmed Problem Acquired hypothyroidism (718310295) Acquired hypothyroidism (E03.9) Active confirmed Problem Recurrent falls (475113599) Multiple falls (R29.6) Active confirmed Problem Polycythemia (686014615) Polycythemia (D75.1) Active confirmed Encounters Encounter Location Date Provider Diagnosis [facility] [address] [place] [address] 09/17/2024 Lidia Malik Plan Of Treatment Pending Test Test Name Order Date CMP (COMPLETE METABOLIC PANEL) 4 HEMOGLOBIN A1C (GLYCO) 02/13/2024 INSULIN, TOTAL 02/13/2024 LIPID PANEL (CHOL/TRIG/HDL/LDL) 02/13/20 24 CBC WITH DIFF 02/13/2024 PSA, PROSTATE-SPECIFIC ANTIGEN 4 URIC ACID 02/13/2024 STOOL OCCULT BLOOD 02/13/2024 GLYCOHEMOGLOBIN A1C 02/19/2024 THYROID PANEL (T4/TSH/FREE T3) 4 THYROID PANEL (T4/TSH/FREE T3) 4 THYROID PANEL (T4/TSH/FREE T3) 4 PSA, SCREENING 03/23/2024 PSA, SCREENING 02/19/2024 Lipid Panel 02/19/2024 Insurance Providers Payer Name Payer Address Payer Phone Subscriber Number Group Number Insured Name Patient Relationship to Insured Coverage Start Date Coverage End Date MEDIC[place] [address] [place] [place] [address] [id number] Vikas Aponte Self - patient is the insured 0 Medical (General) History Medical History History ICD Code Anxiety F41.9 Surgical History Surgery Date(Month/Year) left foot surgery 2022
--- OUTSIDE RECORDS SUMMARY | 2025-07-11 11:52 | XMS_ITS | Clinical Summary ---
Author Organization [facility] Address [address] [place] [address] Phone Care Team Providers Care Contracting Analyst Name Role Phone Unavailable Primary Care Provider [...]
--- OUTSIDE RECORDS SUMMARY | 2025-07-11 11:52 | XMS_ITS | Encounter Summary ---
Author Organization [facility] Address [address] [place] [address] Care Team Providers Care Bus Girl Name Role Phone Unavailable Primary Care Provider Unavailabl e Encounter Details Date Type Department Care Team (Late st Contact Info) Description 05/24/2025 Abstract [facility] [address] [place] [id number] Dean Cuadra MD Social History Tobacco Use Types Packs/Day Years [...]
--- OUTSIDE RECORDS SUMMARY | 2025-07-11 11:53 | XMS_ITS | Encounter Summary ---
Author Organization [facility] Address [address] [place] [address] Care Team Providers Care Key Account Director Name Role Phone Unavailable Primary Care Provider Unavailabl e Encounter Details Date Type Department Care Team (Late st Contact Info) Description 10/17/2023 Abstract [facility] [address] [place] [id number] Vinod Ray, DPM FACFAS [address] [facility] [place] [address] Social History Tobacco Use Types Packs/Day Years [...]
--- OUTSIDE RECORDS SUMMARY | 2025-07-11 11:53 | XMS_ITS | Patient Health Record ---
Author Organization [facility] Address [address] [place] [address] Care Team Providers Care Compliance Assistant Name Role Phone Ally Burkett Unavailable [phone] Reason For Referral No Information Problems Problem Type SNOMED Code ICD Code Onset Dates Problem Status W/U Status Risk Notes Problem 459018117 Wedge compression fracture of first lumbar vertebra, subsequent encounter for fracture with routine healing (S32.010D) Active confirmed Problem 163885041 Wedge compression fracture of fourth lumbar vertebra, subsequent encounter for fracture with routine healing (S32.040D) Active confirmed Problem Fall, initial encounter (W19.XXXA) Active confirmed Problem 98671433390711799 Right arm cellulitis (L03.113) Active confirmed Problem 804067516 Compression fracture of L1 vertebra, initial encounter (S32.010A) Active confirmed Problem 153077451 Compression fracture of L4 vertebra, initial encounter (S32.040A) Active confirmed Encounters Encounter Location Date Provider Diagnosis [facility] [address] [place] [address] 09/17/2024 Ally Burkett Compression fracture of L1 vertebra, initial encounter S32.010A ; Compression fracture of L4 vertebra, initial encounter S32.040A ; Cellulitis of right arm L03.113 and Fall, initial encounter W19.XXXA [facility] [address] [place] [address] 09/18/2024 Ally Mainitenik Wedge compression fracture of first lumbar vertebra, subsequent encounter for fracture with routine healing S32.010D ; Wedge compression fracture of fourth lumbar vertebra, subsequent encounter for fracture with routine healing S32.040D and Right arm cellulitis L03.113 Assessments Encounter Date Diagnosis (ICD Code) Assessment Notes Treatment Notes Treatment Clinical Notes Section Notes 09/17/2024 Compression fracture of L1 vertebra, initial encounter (ICD-10 - S32.010A) 09/17/2024 Compression fracture of L4 vertebra, initial encounter (ICD-10 - S32.040A) 09/18/2024 Wedge compression fracture of first lumbar vertebra, subsequent encounter for fracture with routine healing (ICD-10 - S32.010D) 09/18/2024 Wedge compression fracture of fourth lumbar vertebra, subsequent encounter for fracture with routine healing (ICD-10 - S32.040D) 09/18/2024 Right arm cellulitis (ICD-10 - L03.113) 09/17/2024 Cellulitis of right arm (ICD-10 - L03.113) 09/17/2024 Fall, initial encounter (ICD-10 - W19.XXXA) Plan Of Treatment No Information Insurance Providers Payer Name Payer Address Payer Phone Subscriber Number Group Number Insured Name Patient Relationship to Insured Coverage Start Date Coverage End [place] [address] [place] [address] [id number] Vikas Aponte Self - patient is the insured
--- OUTSIDE RECORDS SUMMARY | 2025-07-11 12:05 | XMS_ITS | CCD ---
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 Tongue red and beefy. Neck: Neck supple. No masses or palpable cervical nodes. Trachea midline. Thyroid without nodules, masses, tenderness, or enlargement Chest: No chest wall deformity, no chest wall tenderness Lungs: Normal respiratory effort and clear to auscultation Cardio: Regular rate and rhythm, normal S1 and S2, no murmur, no rub Abdomen: Soft, non-distended, non-tender, no M/M/T/G/S Musculoskeletal: No point spinal tenderness. No deformity or scoliosis noted. Normal range of motion. Joints normal. No erythema, edema, effusion, or ecchymosis Extremity: No clubbing, cyanosis, edema, or deformity, with normal ROM in both upper and lower bilateral extremities Neurologic: Grossly normal Skin: No rashes, ulcerations, or suspicious lesions Lymph Nodes: No cervical adenopathy, nodes normal Mental Status: Alert and oriented x3. Normal mood and affect Assessment/Plan 1. Encounter to establish care with new provider (Z76.89: Persons encountering health services in other specified circumstances) Forms for driving eval need filled out from [facility]. requires further testing prior to signing off on allowing him to drive. Ordered: Current tobacco non-user 1036F 2. HTN (hypertension) (I10: Essential (primary) hypertension) BP normal in office today. he was previous on nifedipine and chlorthalidone in 2022 and has not been taking this. Ordered: CBC w/ Auto Diff Comprehensive Metabolic Panel Lipid Panel Most recent diastolic blood pressure 80-89 mm Hg 3079F Systolic BP 130-139 mm Hg (Most Recent) 3075F TSH With T4fr Reflex 3. CHENG (iron deficiency anemia) (D50.9: Iron deficiency anemia, unspecified) He has history of this and previously saw hematology and was going to have EGD with GI but he canceled this. Ordered: CBC w/ Auto Diff Comprehensive Metabolic Panel Ferritin Iron Level Patient screen for fall risk: no falls in last year or 1 fall with no injury in last year 1101F TIBC Calculated TSH With T4fr Reflex 4. Venous insufficiency (chronic) (peripheral) (I87.2: Venous insufficiency (chronic) (peripheral)) will order labs and call with results. continue low dose ASA. Ordered: TSH With T4fr Reflex 5. Encounter for screening for diabetes mellitus (Z13.1: Encounter for screening for diabetes mellitus) will order labs and call with results. Ordered: Depression Screening Negative 3352F HgbA1c 6. Encounter for screening for lipid disorder (Z13.220: Encounter for screening for lipoid disorders) will order labs and call with results. Ordered: Lipid Panel 7. Screening for thyroid disorder (Z13.29: Encounter for screening for other suspected endocrine disorder) will order labs and call with results. Ordered: TSH With T4fr Reflex 8. Impaired driving skills (Z78.9: Other specified health status) DMV requiring medical statement to allow him to dri (more content not included)... Normal [facility] Comment on above: Result Comment: Elec tronically Signed By: Sarah RUIZ, Babatunde Correia\.br\Date and Time Signed: 05/13/25 14:27 EDT Ferritinon 05-13-2025 Ferritin Lvl 40 ng/mL Normal 24-336 [facility] Comment on above: Performed By: #### 2 [id number] #### [facility] [address] [place] [address] Folateon 05-13-2025 Folate Lvl 15.1 ng/mL Normal >=6.7 [facility] Comment on above: Performed By: #### 2 [id number] #### [facility] [address] [place] [address] Free T4on 05-13-2025 Free T4 [Mass/Vol] 0.58 ng/dL Normal 0.58-1.64 [facility] Comment on above: Performed By: #### 2 [id number] #### [facility] [address] [place] [address] [id number] 05-13-2025 HbA1c (Bld) [Mass fraction] 5.4 % Normal <=5.9 [facility] Comment on above: Performed By: #### 7 [id number] #### [facility] [address] [place] [address] Ironon 05-13-2025 Iron 23 microgram/dL Low 35-153 [facility] Comment on above: Performed By: #### 2 [id number] #### [facility] [address] [place] [address] Lipid Panelon 05-13-2025 Cholesterol [Mass/Vol] 130 mg/dL Normal 120-[address] [facility] Comment on above: Performed By: #### 2 [id number] #### [facility] [address] [place] [address] Cholesterol in HDL [Mass/Vol] 35 mg/dL Invalid Interpretation Code [facility] Comment on above: Result Comment: '>= 60 LOW RISK' '<= 40 HIGH RISK' Performed By: #### 2 [id number] #### [facility] [address] [place] [address] Cholesterol in LDL [Mass/Vol] 78 mg/dL Normal <=129 [facility] Comment on above: Performed By: #### 2 [id number] #### [facility] [address] [place] [address] Cholesterol in VLDL [Mass/Vol] 29 mg/dL Normal 7-40 [facility] Comment on above: Performed By: #### 2 [id number] #### [facility] [address] [place] [address] Triglyceride [Mass/Vol] 145 mg/dL Normal <=[address] [facility] Comment on above: Performed By: #### 2 [id number] #### [facility] [address] [place] [address] Path. Reviewon 05-13-2025 Path Review Granulocytic leukocytosis with monocytosis of indeterminate etiology per review. Anemia with marked anisopoikilocytosis and polychromasia. Thrombocytosis with giant platelets. Clinical correlation is indicated for etiology. Invalid Interpretation Code [facility] Comment on above: Performed By: #### 1 [id number] #### [facility] [address] [place] [address] Path. Review Path Review Granulocytic leukocytosis with monocytosis of indeterminate etiology per review. Anemia with marked anisopoikilocytosis and polychromasia. Thrombocytosis with giant platelets. Clinical correlation is indicated for etiology. D75.9 CPT 30594 Invalid Interpretation Code [facility] TIBC Calculatedon 05-13-2025 TIBC 393 microgram/dL Normal 250-400 [facility] Comment on above: Performed By: #### 1 [id number] #### [facility] [address] [place] [address] Transferrin [Mass/Vol] 281 mg/dL Normal 200-[address] [facility] Comment on above: Performed By: #### 1 [id number] #### [facility] [address] [place] [id number] TSH With T4fr Reflexon 05-13 TSH Qn 7.73 m[IU]/L High 0.34-5.60 [facility] Comment on above: Performed By: #### 1 [id number] #### [facility] [address] [place] [address] Vit B12on 05-13-2025 Cobalamin (Vitamin B12) [Mass/Vol] 1048 pg/mL Normal 50-1500 [facility] Comment on above: Performed By: #### 2 [id number] #### [facility] [address] [place] [address] eGFRon 05-13-2025 eGFR 55 mL/min/1.73 m2 Low >=59 [facility] Comment on above: Performed By: #### 1 [id number] #### [facility] [address] [place] [address] Ambulatory Visit Summaryon 0 05-12-2025 Ambulatory Visit Summary Ambulatory Visi t Summary DILLAN VIKAS De La Cruz :1940 Visit Date:05/12/2025 Ambulatory Visit Instructions Your Diagnosis Encounter to establish care with new provider HTN (hypertension) CHENG (iron deficiency anemia) Venous insufficiency (chronic) (peripheral) Encounter for screening for diabetes mellitus Encounter for screening for lipid disorder Screening for thyroid disorder Impaired driving skills Red tongue BMI less than 19,adult Your Care Team Attending Physician - Babatunde Vaca Primary Care Physician - Babatunde Vaca This Is Your Medications List aspirin (aspirin 81 mg Oral EC Tab) Discharge Vitals Heart Rate (Peripheral) 86 Blood Pressure 130/80 Height 167 cm Height 66 in Weight 51.1 kg Weight 112.656 lb BMI 18.32 What to do next You Need to Schedule the Following Appointments Follow Up with Babatunde Vaca, [facility], [facility] When: In 6 months Comments: follow up Where: [address] [place], [place] [address], [address] [phone] You Need to Complete the Following CBC w/ Auto Diff, Blood, Routine collect, 05/12/25, Order for future visit, Lab Collect, HTN (hypertension) CHENG (iron deficiency anemia), Not Required, Print Label By Order Location Comprehensive Metabolic Panel, Blood, Routine collect, 05/12/25, Order for future visit, Lab Collect, Impaired driving skills HTN (hypertension) CHENG (iron deficiency anemia), Not Required, Print Label By Order Location HgbA1c, Blood, Routine collect, 05/12/25, Order for future visit, Lab Collect, Encounter for screening for diabetes mellitus Impaired driving skills, Required & Missing, Print Label By Order Location Lipid Panel, Blood, Routine collect, 05/12/25, Order for future visit, Lab Collect, Encounter for screening for lipid disorder HTN (hypertension) Impaired driving skills, Required & Missing, Print Label By Order Location TSH With T4fr Reflex, Blood, Routine collect, 05/12/25, Order for future visit, Lab Collect, Screening for thyroid disorder CHENG (iron deficiency anemia) HTN (hypertension) Venous insufficiency (chronic) (peripheral) Impaired driving skills, Required & Missing, Prin... Medications What How Much When Instructions Unchanged aspirin (aspirin 81 mg Oral EC Tab) 1 Tablets By Mouth Every day Allergies No Known Allergies Problems Ongoing - Any problem that you are currently receiving treatment for. Encounter for screening for diabetes mellitus Encounter for screening for lipid disorder Encounter to establish care with new provider HTN (hypertension) CHENG (iron deficiency anemia) Impaired driving skills Red tongue Screening for thyroid disorder Venous insufficiency (chronic) (peripheral) Patient Survey You may receive a survey via text or e-mail asking about your office visit. Please share your experience with us by completing your survey. We appreciate your feedback and thank you for choosing us for your care. Patient Portal You may access all of your results and other medical record information on our secure patient portal. If you are not signed up for this yet, please contact Health Information Management at [phone] to get signed up today. Language Information Language assistance services are available as needed. Normal [facility] Patient Letter FTon 2024 Patient Letter [facility] Patient Letter [facility] May 12, 2025 VIKAS GRIMALDO [address] [place] [address] : 1940 To Whom It May Concern: This patient is under my care and currently scheduling a driving evaluation and further work up to deem him safe to drive. Please provide him the courtesy to extend his deadline for completed paperwork to the end of June to complete testing. Please contact my office with any further questions. Thank you for your time and consideration. Babatunde Smith, MSN, FIELD HOC[employer]ACH-[employer] [facility] [address] [place] [address], [place] [address] Normal [facility] CHEMISTRYOrdered By: SYSTEM SYSTEM on 11-01-2023 Ferritin [...] 19 mmol/L High 6 - 16 mEq/L [facility] Chem AST 43 [iU]/d Normal 5 - [...] Chem eGFR 46 mL/min/1.73 m2 Low >=59mL/min / 1.73 m2 [facility] Globulin (S) [Mass/Vol] 2.9 [...] [Mass/Vol] 47 mg/dL High 5 - 21 mg/dL [facility] Urea nitrogen/Creatinine [Mass ratio] 31 mg/mg High 10 - 20 [facility] HEMATOLOGYOrdered By: SYSTEM SYSTEM on 11-01-2023 Basophils/100 [...] 150. 0 - 500.0 E9/L [facility] RBC (Bld) [#/Vol] 8.0 E12/L High 4.3 - 5.9 E12/L [facility] WBC corrected for nucl RBC Auto (Bld) [#/Vol] 19.4 E9/L High 4.0 - 11.0 E9/L [facility] HEMATOLOGYOrdered By: Ada Mahoney on 10-20-2023 Anisocytosis Ql (Bld) Present (10/20/23 3:29 PM) Normal [facility] Erythrocyte distribution width (RBC) [Ratio] 28.8 % High 10.9 - 14.2 % [facility] Hematocrit (Bld) [Volume fraction] 52.9 % High 37.7 - 49.0 % [facility] Hemoglobin (Bld) [Mass/Vol] 16.4 g/dL Normal 13.5 - 17.5 gm/dL [facility] Hypochromia Auto Ql (Bld) Present (10/20/23 3:29 PM) Normal [facility] MCH (RBC) [Entitic mass] 21.1 pg [...] High 2.0 - 7.5 E9/L [facility] CHEMISTRYOrdered By: SYSTEM SYSTEM on 10-17-2023 Albumin [Mass/Vol] 4.0 g/dL Normal 3.3 - 5.0 gm/dL [facility] Albumin/Globulin [Mass ratio] 1.3 {ratio} Normal 1.1 - 2.2 [facility] Alk Phos 89 [iU]/d Normal 21 - 98 Int._Unit/L [facility] ALT 18 [iU]/d Normal 6 - 46 Int._Unit/L [facility] Anion gap [Moles/Vol] 13 mmol/L Normal 6 - 16 mEq/L [facility] AST 23 [iU]/d Normal 5 - 43 Int._Unit/L [facility] Bili Total 0.4 mg/dL Normal 0.0 - 1.1 mg/dL [facility] Calcium [Mass/Vol] 9.8 mg/dL Normal 8.9 - 11. 1 mg/dL [facility] Chloride [Moles/Vol] 99 mmol/L Low 101 - 1 11 mmol/L [facility] CO2 [Moles/Vol] 29 mmol/L Normal 21 - 31 mmol/L [facility] Creatinine [Mass/Vol] 1.7 mg/dL High 0.5 - 1.3 mg/dL [facility] eGFR 40 mL/min/1.73 m2 Low >=59mL/min / 1.73 m2 [facility] Ferritin Lvl 73 ng/mL Normal 24 - 336 ng/mL [facility] Globulin (S) [Mass/Vol] 3.1 g/dL Normal 1.4 - 4.0 gm/dL [facility] Glucose [Mass/Vol] 114 mg/dL Normal 55 - 199 mg/dL [facility] Iron [Mass/Vol] 36 ug/dL Normal 35 - 153 mcg/dL [facility] Iron Sat 9 % Low 20 - 50 % [facility] Potassium [Moles/Vol] 4.3 mmol/L Normal 3.5 - 5.3 mmol/L [facility] Chem Protein [Mass/Vol] 7.1 g/dL Normal 6.0 - 7.8 gm/dL [facility] Sodium [Moles/Vol] 137 mmol/L Normal 135 - 145 mmol/L [facility] TIBC 393 ug/dL Normal 250 - 400 mcg/dL [facility] Transferrin [Mass/Vol] 281 mg/dL Normal 200 - 370 mg/dL [facility] Urea nitrogen [Mass/Vol] 35 mg/dL High 5 - 21 mg/dL [facility] Urea nitrogen/Creatinine [Mass ratio] 21 mg/mg High 10 - 20 [facility] HEMATOLOGYOrdered By: Agatha Kim on 10-17-2023 Anisocytosis Ql (Bld) Present (10/17/23 1:57 PM) Normal [facility] Basophils/100 WBC (Bld) 0.4 % Normal 0.0 - 2.0 % [facility] Basophils/Leukocytes Auto (Bld) [Pure # fraction] 0.1 E9/L Normal 0.0 - 0.2 E9/L [facility] Eosinophils/100 WBC (Bld) 1.7 % Normal 0.0 - 8.0 % [facility] Eosinophils/Leukocytes Auto (Bld) [Pure # fraction] 0.4 E9/L Normal 0.0 - 0.5 E9/L [facility] Erythrocyte distribution width (RBC) [Ratio] 28.1 % High 10.9 - 14.2 % [facility] Hematocrit (Bld) [Volume fraction] 50.5 % High 37.7 - 49.0 % [facility] Hemoglobin (Bld) [Mass/Vol] 15.6 g/dL Normal 13.5 - 17.5 gm/dL [facility] Hypochromia Auto Ql (Bld) Present (10/17/23 1:57 PM) Normal [facility] Lymphocytes/100 WBC (Bld) 3.0 % Low 14.0 - 50.0 % [facility] Lymphocytes/Leukocytes Auto (Bld) [Pure # fraction] 0.7 E9/L Low 1.0 - 4.0 E9/L [facility] MCH (RBC) [Entitic mass] 20.9 pg Low 27. 0 - 34.0 pg [facility] MCHC (RBC) [Mass/Vol] 30.9 g/dL Low 31.4 - 36.0 gm/dL [facility] MCV (RBC) [Entitic vol] 67.9 fL Low 80.0 - 100.0 fL [facility] Microcytes Ql (Bld) Present (10/17/23 1:57 PM) Normal [facility] Monocytes/100 WBC (Bld) 11.6 % Normal 4.0 - 14.0 % [facility] Monocytes/Leukocytes Auto (Bld) [Pure # fraction] 2.6 E9/L High 0.2 - 1.0 E9/L [facility] Morphology Panfilo (Bld) [Interp] See Morphology (10/17/23 1:57 PM) Normal [facility] Neutrophils/100 WBC (Bld) 83.3 % High 36.0 - 75.0 % [facility] Neutrophils/Leukocytes Auto (Bld) [Pure # fraction] 18.7 E9/L High 2.0 - 7.5 E9/L [facility] Platelet mean volume (Bld) [Entitic vol] 8.0 fL Normal 6.4 - 10.8 fL [facility] Platelets (Bld) [#/Vol] 576.0 E9/L High 150. 0 - 500.0 E9/L [facility] Platelets Large LM Ql (Bld) Present (10/17/23 1:57 PM) Normal [facility] Polychromasia LM Ql (Bld) Present (10/17/23 1:57 PM) Normal [facility] RBC (Bld) [#/Vol] 7.4 E12/L High 4.3 - 5.9 E12/L [facility] WBC corrected for nucl RBC Auto (Bld) [#/Vol] 22.4 E9/L High 4.0 - 11.0 E9/L [facility] CHEMISTRYOrdered By: SYSTEM SYSTEM on 10-03-2023 Anion gap [Moles/Vol] 10 mmol/L Normal 6 - 16 mEq/L [facility] Calcium [Mass/Vol] 8.6 mg/dL Low 8.9 - 11. 1 mg/dL [facility] Chloride [Moles/Vol] 111 mmol/L Normal 101 - 1 11 mmol/L [facility] CO2 [Moles/Vol] 23 mmol/L Normal 21 - 31 mmol/L [facility] Creatinine [Mass/Vol] 1.3 mg/dL Normal 0.5 - 1.3 mg/dL [facility] GFR/1.73 sq M.predicted among non-blacks MDRD (S/P/Bld) [Vol rate/Area] 56 mL/min/1.73 m2 Low >=59mL/min/ 1.73 m2 [facility] Chem S Comment on [...] 3.8 mmol/L Normal 3.5 - 5.3 mmol/L [facility] Sodium [Moles/Vol] 140 mmol/L Normal 135 - 145 mmol/L [facility] Urea nitrogen [Mass/Vol] 26 mg/dL High 5 - 21 mg/dL [facility] Urea nitrogen/Creatinine [Mass ratio] 20 mg/mg Normal 10 - 20 [facility] CHEMISTRYOrdered By: Agatha Kim on 10-03-2023 Natriuretic peptide B (Bld) [Mass/Vol] 186 pg/mL High 5 - 80 pg/mL [facility] HEMATOLOGYOrdered By: Agatha Kim on 10-03-2023 Anisocytosis Ql (Bld) Present (10/03/23 6:46 AM) Normal [facility] Erythrocyte distribution width (RBC) [Ratio] 21.3 % High 10.9 - 14.2 % [facility] Hematocrit (Bld) [Volume fraction] 40.9 % Normal 37.7 - 49.0 % [facility] Hemoglobin (Bld) [Mass/Vol] 12.5 g/dL Low 13.5 - 17.5 gm/dL [facility] Hypochromia Auto Ql (Bld) Present (10/03/23 6:46 AM) Normal [facility] MCH (RBC) [Entitic mass] 19.4 pg Low 27. 0 - 34.0 pg [facility] MCHC (RBC) [Mass/Vol] 30.5 g/dL Low 31.4 - 36.0 gm/dL [facility] MCV (RBC) [Entitic vol] 63.6 fL Low 80.0 - 100.0 fL [facility] Microcytes Ql (Bld) Present (10/03/23 6:46 AM) Normal [facility] Morphology Panfilo (Bld) [Interp] See Morphology (10/03/23 6:46 AM) Normal [facility] Ovalocytes LM Ql (Bld) Present (10/03/23 6:46 AM) Normal [facility] Platelet mean volume (Bld) [Entitic vol] 7.8 fL Normal 6.4 - 10.8 fL [facility] Platelets (Bld) [#/Vol] 172.0 E9/L Normal 150. 0 - 500.0 E9/L [facility] Platelets Large LM Ql (Bld) Present (10/03/23 6:46 AM) Normal [facility] Polychromasia LM Ql (Bld) Present (10/03/23 6:46 AM) Normal [facility] RBC (Bld) [#/Vol] 6.4 E12/L High [...] High 2.0 - 7.5 E9/L [facility] CHEMISTRYOrdered By: SYSTEM SYSTEM on 10-02-2023 Vancomycin peak [Moles/Vol] 32 microgram/mL Normal 20 - 40 mcg/mL [facility] Anion gap [Moles/Vol] 8 mmol/L Normal 6 - 16 mEq/L [facility] Calcium [Mass/Vol] 8.5 mg/dL Low 8.9 - 11. 1 mg/dL [facility] Chloride [Moles/Vol] 114 mmol/L High 101 - 1 11 mmol/L [facility] CO2 [Moles/Vol] 21 mmol/L Normal 21 - 31 mmol/L [facility] Creatinine [Mass/Vol] 1.5 mg/dL High 0.5 - 1.3 mg/dL [facility] GFR/1.73 sq M.predicted among non-blacks MDRD (S/P/Bld) [Vol rate/Area] 47 mL/min/1.73 m2 Low >=59mL/min/ 1.73 m2 [facility] Chem S Comment on above: Interpretive Data: C hronic kidney disease could be indicated at eGFR's of less than 60 mL/min/1.73m2. Kidney failure is indicated at less than 15 mL/min/1.73m2. Glucose [Mass/Vol] 94 mg/dL Normal 55 - 199 mg/dL [facility] Comment on above: Interpretive Data: I f this glucose result represents a fasting glucose, interpretation should refer to the following reference range: 55-99 mg/dL Magnesium [Mass/Vol] 1.9 mg/dL Normal 1.3 - 2 .4 mg/dL [facility] Potassium [Moles/Vol] 3.9 mmol/L Normal 3.5 - 5.3 mmol/L [facility] Sodium [Moles/Vol] 139 mmol/L Normal 135 - 145 mmol/L [facility] Urea nitrogen [Mass/Vol] 29 mg/dL High 5 - 21 mg/dL [facility] Urea nitrogen/Creatinine [Mass ratio] 19 mg/mg Normal 10 - 20 [facility] HEMATOLOGYOrdered By: Lindsay Caal on 10-02-2023 Anisocytosis Ql (Bld) Present (10/02/23 6:03 AM) Normal [facility] Erythrocyte distribution width (RBC) [Ratio] 21.5 % High 10.9 - 14.2 % [facility] Hematocrit (Bld) [Volume fraction] 41.5 % Normal 37.7 - 49.0 % [facility] Hemoglobin (Bld) [Mass/Vol] 12.4 g/dL Low 13.5 - 17.5 gm/dL [facility] Hypochromia Auto Ql (Bld) Present (10/02/23 6:03 AM) Normal [facility] MCH (RBC) [Entitic mass] 19.1 pg Low 27. 0 - 34.0 pg [facility] MCHC (RBC) [Mass/Vol] 29.9 g/dL Low 31.4 - 36.0 gm/dL [facility] MCV (RBC) [Entitic vol] 64.0 fL Low 80.0 - 100.0 fL [facility] Microcytes Ql (Bld) Present (10/02/23 6:03 AM) Normal [facility] Morphology Panfilo (Bld) [Interp] See Morphology (10/02/23 6:03 AM) Normal [facility] Ovalocytes LM Ql (Bld) Present (10/02/23 [...] 21.3 E9/L High 2.0 - 7.5 E9/L [facility] CHEMISTRYOrdered By: SYSTEM SYSTEM on 10-01-2023 Anion gap [Moles/Vol] 5 mmol/L Low 6 - 16 mEq/L [facility] Calcium [Mass/Vol] 8.3 mg/dL Low 8.9 - 11. 1 mg/dL [facility] Chloride [Moles/Vol] 116 mmol/L High 101 - 1 11 mmol/L [facility] CO2 [Moles/Vol] 22 mmol/L Normal 21 - 31 mmol/L [facility] Creatinine [Mass/Vol] 1.7 mg/dL High 0.5 - 1.3 mg/dL [facility] GFR/1.73 sq M.predicted among non-blacks MDRD (S/P/Bld) [Vol rate/Area] 40 mL/min/1.73 m2 Low >=59mL/min/ 1.73 m2 [facility] Chem S Comment on above: Interpretive Data: C hronic kidney disease could be indicated at eGFR's of less than 60 mL/min/1.73m2. Kidney failure is indicated at less than 15 mL/min/1.73m2. Glucose [Mass/Vol] 99 mg/dL Normal 55 - 199 mg/dL [facility] Comment on above: Interpretive Data: I f this glucose result represents a fasting glucose, interpretation should refer to the following reference range: 55-99 mg/dL Magnesium [Mass/Vol] 2.0 mg/dL Normal 1.3 - 2 .4 mg/dL [facility] Potassium [Moles/Vol] 4.2 mmol/L Normal 3.5 - 5.3 mmol/L [facility] Sodium [Moles/Vol] 139 mmol/L Normal 135 - 145 mmol/L [facility] T4 [Mass/Vol] 7.1 ug/dL Normal 4.6 - 9.1 mcg/dL [facility] TSH Qn 16.05 m[IU]/L High 0.34 - 5.60 mcIU/mL [facility] Urea nitrogen [Mass/Vol] 33 mg/dL High 5 - 21 mg/dL [facility] Urea nitrogen/Creatinine [Mass ratio] 19 mg/mg Normal 10 - 20 [facility] CHEMISTRYOrdered By: Doug Alvarado on 10-01-2023 Osmolality [Osmolality] 302 mosm/kg High 275 - 295 mOsm/kg [facility] UA SS HEMATOLOGYOrdered By: Edwina Salas on 10-01-2023 Anisocytosis Ql (Bld) Present (10/01/23 6:13 AM) Normal [facility] HemeManSS Band form neutrophils/100 WBC (Bld) 1 % Normal 0 - 10 % [facility]eManSS Basophils/100 WBC (Bld) 2 % Normal 0 - 2 % [facility] HemeManSS Basophils/Leukocytes Manual cnt (Bld) [Pure # fraction] 0.5 E9/L High 0.0 - 0.2 E9/L [facility] HemeManSS Eosinophils/100 WBC (Bld) 0 % Normal 0 - 8 % [facility] HemeManSS Eosinophils/Leukocytes Manual cnt (Bld) [Pure # fraction] 0.0 E9/L Normal 0.0 - 0.5 E9/L [facility] HemeManSS Erythrocyte distribution width (RBC) [Ratio] 21.6 % High 10.9 - 14.2 % [facility] HemeAutoSS Hematocrit (Bld) [Volume fraction] 39.9 % Normal 37.7 - 49.0 % [facility] HemeAutoSS Hemoglobin (Bld) [Mass/Vol] 12.3 g/dL Low 13.5 - 17.5 gm/dL [facility] HemeAutoSS Hypochromia Auto Ql (Bld) Present (10/01/23 [...] 6.6 fL Normal 6.4 - 10.8 fL [facility] HemeAutoSS Platelets (Bld) [#/Vol] 587.0 E9/L High 150. 0 - 500.0 E9/L [facility]eAutoSS Platelets Large LM Ql (Bld) Present (10/01/23 6:13 AM) Normal [facility] HemeManSS Polychromasia LM Ql (Bld) Present (10/01/23 6:13 AM) Normal [facility]eMan[facility] RBC (Bld) [#/Vol] 6.2 E12/L High 4.3 - 5.9 E12/L [facility] HemeAutoSS Segmented neutrophils/100 WBC (Bld) 90 % High 36 - 75 % [facility] HemeManSS Variant lymphocytes LM Ql (Bld) 0 % Normal <=0% [facility] HemeManSS WBC corrected for nucl RBC Auto (Bld) [#/Vol] 26.5 E9/L High 4.0 - 11.0 E9/L [facility] HemeAutoSS Reference Laboratory Testing Ordered By: Freya Anderson on 10-01-2023 Sodium [Moles/Vol] 196046 mmol/L Invalid Interpretation Code [facility] SendOutsSS Comment on above: Result Comment: Test code corrected. 10/01/2023 06:52:57 EST Test Name HILARY 2 Invalid Interpretation Code [facility] SendOutsSS CHEMISTRYOrdered By: Tomy briscoe on 09-30-2023 Creatinine (U) [Mass/Vol] 141.2 mg/dL Invalid Interpretation Code [facility] Remisol Comment on above: Interpretive Data: T he reference range and other method performance specifications have not been established for this test; results should be integrated into the clinical context for interpretation. Sodium (U) [Moles/Vol] 74 mmol/L Invalid Interpretation Code [facility] Remisol Comment on above: Interpretive Data: T he reference range and other method performance specifications have not been established for this test; results should be integrated into the clinical context for interpretation. U Osmolality 702 mOsm/kg Normal 50 - 1400 mOsm/kg [facility] Man UA SS CHEMISTRYOrdered By: SYSTEM SYSTEM on 09-30-2023 Vancomycin trough [Moles/Vol] 7 microgram/mL Low 10 - 20 mcg/mL [facility] Iron binding capacity [Mass/Vol] 339 ug/dL Normal 250 - 400 mcg/dL [facility] Transferrin [Mass/Vol] 242 mg/dL Normal 200 - 370 mg/dL [facility] CHEMISTRYOrdered By: Kelley Aldana on 09-30-2023 HbA1c (Bld) [Mass fraction] 5.6 % Normal <=5.9% [facility] ChemAutoSS HEMATOLOGYOrdered By: Kailash Rolon on 09-30-2023 Band [...] 0.4 E9/L Low 1.0 - 4.0 E9/L [facility] HemeManSS Monocytes/100 WBC (Bld) 13 % Normal 4 - 14 % [facility] HemeManSS Monocytes/Leukocytes Manual cnt (Bld) [Pure # fraction] 4.8 E9/L High 0.2 - 1.0 E9/L [facility] HemeManSS Neutrophils/Leukocytes Auto (Bld) [Pure # fraction] 30.2 E9/L High 2.0 - 7.5 E9/L [facility]eManSS Nucleated cells (Bld) [#/Vol] 1 1 High <=0 [facility] HemeManSS Segmented neutrophils/100 WBC (Bld) 82 % High 36 - 75 % [facility] HemeManSS Variant lymphocytes LM Ql (Bld) 1 % High <=0% [facility] HemeManSS Laboratory - Microbiology an d Antimicrobial susceptibilityOrdered By: Melly Guevara on 09-30-2023 MRSA DNA CONNOR+probe Ql (Unsp spec) MRSA Negative. [facility] No Panel InformationOrdered By: Melly Guevara on 09-30-2023 GS 1+ White Blood Cells No organisms seen. [facility] Wound Culture No growth at 3 days. [facility] GS 1+ White Blood Cells No organisms seen. [facility] Wound Culture No growth at 3 days. [facility] URINALYSISOrdered By: Tomy Houston on 09-30-2023 Bilirubin [...] PM) Normal Negative [facility] UA Auto SS [place].plasma/[place].R BC (Bld) [Mass ratio] 0-3 /HPF Normal [...] [facility] UA Auto SS Urobilinogen Qn (U) 0.2935801 {Snow'U}/dL Normal 0.0 - 1.0 EU/dL [facility] UA Auto SS WBC Auto Ql (U) Negative (09/30/23 11:31 PM) Normal Negative [facility] UA Auto SS WBC LM.HPF (Urine sed) [#/Area] 0-5 /HPF Normal 0-5/HPF [facility] UA Auto SS CHEMISTRYOrdered By: SYSTEM SYSTEM on 09-29-2023 Cobalamin [...] 3.1 g/dL Normal 1.4 - 4.0 gm/dL [facility] Lactate [Mass/Vol] 1.2 mmol/L Normal 0.5 - 2.2 mmol/L [facility] Protein [Mass/Vol] 6.6 g/dL Normal 6.0 - 7.8 gm/dL [facility] COAGULATIONOrdered By: Augustin Mahoney on 09-29-2023 aPTT Coag (PPP) [Time] 41.4 s High 25.1 - 36.5 second(s) [facility] Auto Coag Comment on above: Interpretive Data: [...] the same coagulation reagent and instrumentation as [facility]. Currently there are no coagulation studies available worldwide for children to 14 days, and no normal ranges. Heparin therapeutic range (represented by Anti-Factor Xa activity of 0.2 - 0.4 U/mL) corresponds to PTT of 56.6 - 109.0 sec. INR Coag (PPP) [Relative time] 1.4 {INR} Invalid Interpretation Code [facility] Auto Coag Comment on above: Interpretive Data: I NR results are specifically intended to assess patients stabilized on long-term Anticoagulation therapy suggested INR s Less Intensive Anticoagulation 2.0 3.0 Conventional Range 3.0 4.5 PT Coag (PPP) [Time] 15.4 s High 9.4 - 1 2.5 second(s) [facility] Auto Coag Comment on [...] the same coagulation reagent and instrumentation as [facility]. Currently there are no coagulation studies available worldwide for children to 14 days, and no normal ranges. HEMATOLOGYOrdered By: Maciej Lim on 09-29-2023 Band form neutrophils/100 WBC (Bld) 0 % Normal 0 - 10 % [facility] HemeManSS Basophils/100 WBC (Bld) 4 % High [...] 9 mm/h Normal 0 - 19 mm/hr [facility] HemeAutoSS Lymphocytes/100 WBC (Bld) 6 % Low 14 - 50 % [facility] HemeManSS Lymphocytes/Leukocytes Manual cnt (Bld) [Pure # fraction] 1.7 E9/L Normal 1.0 - 4.0 E9/L [facility] HemeManSS Monocytes/100 WBC (Bld) 8 % Normal 4 - 14 % [facility] HemeManSS Monocytes/Leukocytes Manual cnt (Bld) [Pure # fraction] 1.9 E9/L High 0.2 - 1.0 E9/L [facility] HemeManSS Neutrophils/Leukocytes Auto (Bld) [Pure # fraction] 18.7 E9/L High 2.0 - 7.5 E9/L [facility]eManSS Nucleated cells (Bld) [#/Vol] 2 1 High <=0 [facility] HemeManSS Polychromasia LM Ql (Bld) Present (09/29/23 5:13 PM) Normal [facility] HemeManSS Segmented neutrophils/100 WBC (Bld) 77 % High 36 - 75 % [facility]eManSS Variant lymphocytes LM Ql (Bld) 1 % High <=0% [facility] HemeManSS HEMATOLOGYOrdered By: Alyssa Butler on 09-29-2023 Path Review Granulocytic leukocytosis with monocytosis and mild basophilia. Anemia with marked anisopoikilocytosis, target cells, ovalocytes and polychromasia. Clinical correlation is indicated for etiology. Thrombocytosis with giant platelets.D75.9CPT 12195 Invalid Interpretation Code [facility] HemeManSS No Panel InformationOrdered By: ANGPROCESSSERVER MICROBIOLOGY on 09-29-2023 Blood Culture Charcoal No growth at 4 da ys. Final to follow at 7 days. [facility] Blood Culture Charcoal No growth at 4 da ys. Final to follow at 7 days. [facility] Vital Signs Date Time Vital Sign Value Performing Clinician Facility 12-04-2023 12:23-0500 Blood Pressure Location [facility] 12-04-2023 12:23-0500 Diastolic blood pressure 76 mm[Hg] [facility] 12-04-2023 12:23-0500 Heart rate 80 /min [facility] 12-04-2023 12:23-0500 Respiratory rate 18 /min [facility] 12-04-2023 12:23-0500 Systolic blood pressure 124 mm[Hg] [facility] 11-04-2023 10:04-0500 Blood Pressure Location Mhd Al-Marrawi [facility] 11-04-2023 10:04-0500 Body temperature 97.52 [degF] [facility] 11-04-2023 10:04-0500 Diastolic blood pressure 79 mm[Hg] [facility] 11-04-2023 10:04-0500 Heart rate 74 /min [facility] 11-04-2023 10:04-0500 Mean blood pressure 96 mm[Hg] [facility] 11-04-2023 10:04-0500 Respiratory rate 18 /min [facility] 11-04-2023 10:04-0500 SaO2% (BldA) [Mass fraction] 96 % [facility] 11-04-2023 10:04-0500 Systolic blood pressure 130 mm[Hg] [facility] 11-04-2023 10:02-0500 Heart rate 89 /min [facility] 11-04-2023 10:02-0500 SaO2% (BldA) [Mass fraction] 95 % [facility] 11-04-2023 10:01-0500 Body temperature 97.52 [degF] [facility] 11-04-2023 10:00-0500 Diastolic blood pressure 79 mm[Hg] [facility] 11-04-2023 10:00-0500 Mean blood pressure 96 mm[Hg] [facility] 11-04-2023 10:00-0500 Systolic blood pressure 130 mm[Hg] [facility] 10-21-2023 15:00-0500 Blood Pressure Location [facility] 10-21-2023 15:00-0500 Body temperature 99.32 [degF] [facility] 10-21-2023 15:00-0500 Diastolic blood pressure 68 mm[Hg] [facility] 10-21-2023 15:00-0500 Heart rate 82 /min [facility] 10-21-2023 15:00-0500 SaO2% (BldA) [Mass fraction] 94 % [facility] 10-21-2023 15:00-0500 Systolic blood pressure 109 mm[Hg] [facility] 10-21-2023 14:00-0500 Diastolic blood pressure 72 mm[Hg] [facility] 10-21-2023 14:00-0500 Heart rate 80 /min [facility] 10-21-2023 14:00-0500 Mean blood pressure 89 mm[Hg] [facility] 10-21-2023 14:00-0500 Systolic blood pressure 124 mm[Hg] [facility] 10-20-2023 14:28-0500 Heart rate 76 /min [facility] 10-20-2023 14:28-0500 SaO2% (BldA) [Mass fraction] 97 % [facility] 10-20-2023 14:28-0500 Body temperature 97.7 [degF] [facility] 10-20-2023 14:28-0500 Diastolic blood pressure 74 mm[Hg] [facility] 10-20-2023 14:28-0500 Mean blood pressure 99 mm[Hg] [facility] 10-20-2023 14:28-0500 Systolic blood pressure 150 mm[Hg] [facility] 10-20-2023 14:27-0500 Respiratory rate 14 /min Mhd Lashanda [facility] 10-03-2023 21:44-0500 Hourly Rounding Sonya [facility] 10-03-2023 21:44-0500 Promise to Return [facility] 10-03-2023 20:33-0500 Hourly Rounding Sonya [facility] 10-03-2023 20:33-0500 Promise to Return [facility] 10-03-2023 20:02-0500 Heart rate 92 /min [facility] 10-03-2023 20:02-0500 SaO2% (BldA) [Mass fraction] 91 % [facility] 10-03-2023 20:01-0500 Diastolic blood pressure 64 mm[Hg] [facility] 10-03-2023 20:01-0500 Mean blood pressure 92 mm[Hg] [facility] 20:01-0500 Systolic blood pressure 149 mm[Hg] [facility] 10-03-2023 19:30-0500 Hourly Rounding [facility] 10-03-2023 19:30-0500 Promise to Return Sonya [facility] 10-03-2023 17:17-0500 SaO2% (BldA) [Mass fraction] 92 % [facility] 10-03-2023 16:47-0500 Heart rate 87 /min [facility] 10-03-2023 16:47-0500 SaO2% (BldA) [Mass fraction] 91 % [facility] 10-03-2023 16:46-0500 Body temperature 98.24 [degF] [facility] 10-03-2023 16:46-0500 Diastolic blood pressure 71 mm[Hg] Sonya [facility] 10-03-2023 16:46-0500 Mean blood pressure 98 mm[Hg] Sonya [facility] 10-03-2023 16:46-0500 Systolic blood pressure 151 mm[Hg] [facility] 10-03-2023 11:54-0500 Heart rate 90 /min [facility] 10-03-2023 11:54-0500 Diastolic blood pressure 76 mm[Hg] [facility] 10-03-2023 11:54-0500 Mean blood pressure 101 mm[Hg] [facility] 10-03-2023 11:54-0500 Systolic blood pressure 153 mm[Hg] [facility] 10-03-2023 11:53-0500 Body temperature 97.34 [degF] [facility] 10-03-2023 08:00-0500 Body temperature 98.42 [degF] [facility] 10-03-2023 01:36-0500 Body temperature 98.6 [degF] [facility] 10-03-2023 01:36-0500 Mean blood pressure 105 mm[Hg] Sonya [facility] 10-03-2023 01:36-0500 Respiratory rate 16 /min [facility] 10-03-2023 00:47-0500 Body temperature 98.78 [degF] [facility] 10-03-2023 00:47-0500 Mean blood pressure 112 mm[Hg] [facility] 10-03-2023 00:47-0500 Respiratory rate 18 /min [facility] 10-02-2023 20:55-0500 Body temperature 98.6 [degF] [facility] 10-02-2023 20:00-0500 Blood Pressure Location [facility] 10-02-2023 00:35-0500 Respiratory rate 18 /min [facility] 10-01-2023 19:26-0500 Blood Pressure Location [facility] 10-01-2023 19:26-0500 Mean blood pressure 97 mm[Hg] [facility] 10-01-2023 13:22-0500 Heart rate 76 /min [facility] 09-30-2023 17:49-0500 Body temperature 98.42 [degF] [facility] 09-30-2023 17:49-0500 Respiratory rate 13 /min [facility] 09-30-2023 17:35-0500 Respiratory rate 14 /min [facility] 09-30-2023 17:30-0500 Respiratory rate 14 /min [facility] 09-30-2023 17:20-0500 Body temperature 97.16 [degF] [facility] 09-29-2023 21:53-0500 Heart rate 86 /min [facility] 09-29-2023 16:28-0500 Heart rate 76 /min [facility] Encounters Encounter Date Encounter Type Care Provider Facility Start: 06-02-2025 End: 06-02-2025 ambulatory Babatunde Smith APRN Work Phone: [facility] Work Phone: Start: 06-02-2025 End: 06-02-2025 Patient encounter procedure Babatunde Smith APRN -[facility] Start: 05-17-2025 End: 05-17-2025 ambulatory Mhd Ada Pyle Facility:[facility] Start: 05-13-2025 End: 05-13-2025 ambulatory Babatunde Smith Facility:[facility] Start: 05-12-2025 End: 05-12-2025 ambulatory Babatunde Smith Facility:[facility] Start: 05-12-2025 End: 05-12-2025 Patient encounter procedure Babatunde Smith FIELD HOCKEY COACH-C [facility] Start: 05-09-2025 ambulatory Babatunde Smith Facility :[facility] Start: 02-24-2024 End: 02-24-2024 ambulatory PHYSICIAN [facility] Work Phone: Start: 02-24-2024 End: 02-24-2024 Departed Referred PHYSICIAN [facility] Start: 12-15-2023 End: 12-16-2023 Pre-admission assessment Mhd Kadieser Al-Marrawi [facility] Start: 12-04-2023 End: 02-17-2024 Pre-admission assessment [facility] Sar[facility] Start: 12-04-2023 End: 12-04-2023 Patient encounter procedure King Talal Sarmini [facility] Start: 11-04-2023 End: 11-04-2023 Patient encounter procedure Mhd Yaser Al-Marrawi [facility] Start: 11-01-2023 End: 11-01-2023 Patient encounter procedure Mhd Yaser Al-Marrawi [facility] Start: 10-22-2023 End: 10-22-2023 ambulatory VINOD QUINTEROS Not Available Start: 10-21-2023 End: 10-21-2023 Patient encounter procedure Mhd Yaser AlCecily [facility] Start: 10-20-2023 End: 10-20-2023 Patient encounter procedure Orlando Pyle [facility] Start: 10-17-2023 End: 10-17-2023 Patient encounter procedure yasemin Pyle [facility] Start: 10-09-2023 Patient encounter procedure Chapo Oshea APRN.RISK ADJUSTMENT SPECIALIST Work Phone: [facility] Start: 10-09-2023 Progress Note Chapo MOYER RN.RISK ADJUSTMENT SPECIALIST Work Phone: [facility] Start: 10-08-2023 End: 10-08-2023 ambulatory VINOD D DOLCE Not Available Start: 10-06-2023 Patient encounter procedure Itrjayson Briann Work Phone: [facility] Start: 10-06-2023 Progress Note Itri A Timo Work Phone: [facility] Start: 09-29-2023 End: 09-29-2023 ambulatory VINOD D DOLCE Not Available Start: 09-29-2023 End: 10-03-2023 Evaluation and management of inpatient Sonya Dee [facility] Immunizations Immunization Date Immunization Notes Care Provider Fa cili 09-16-2024 tetanus toxoid, reduced diphtheria toxoid, and acellular pertussis vaccine, adsorbed Babatunde Smith FIELD HOCKEY COACH-C [facility] NEGATED: Highlighted row has not occurred!12-03-2023 influenza virus vaccine, unspecified formulation Fernando Bucio [facility] Payers Date Payer Category Payer Self-pay 2010 Medicare [id number] 2008 Medicare [id number] 1942 Unknown [id number] 1942 Unknown [id number] 1942 Unknown [id number] 1942 Unknown [id number] 2.16.8 [id number] 1942 Unknown [id number] 2.16.8 [id number] 1942 Unknown [id number] [id number] Unknown [id number] [id number] Social History Date Type Detail Facility Start: 09-29-2023 End: 12-04-2023 Tobacco smoking status Ex-smoker (finding) [facility] Sex Assigned At Male [facility] Tobacco smoking stat [facility] Tobacco smoking consumption unknown [facility] Start: 1940 Sex Assigned At Not on file C [facility] Tobacco smoking status Never [facility] Start: 1940 Sex Assigned At Male [facility] Start: 05-12-2025 Tobacco smoking status Never s moked tobacco (finding) [facility] Comment on above: denies Sexual Orientation [facility] Start: 01-22-2019 Sex Male (finding) [facility] Functional Status Date Assessment Result Facility 12-04-2023 Functional Status N/A [facility] 09-29-2023 Functional Status N/A [facility] 09-29-2023 Functional Status [facility] Clinical Notes 09-30-2023 to 05-17-2025 LaboratoryLaboratoryEvans, YASMIN Cowan.RISK ADJUSTMENT SPECIALIST - 10/09/2023 12:00 AM Kandy Rios A - 10/06/2023 12:00 AM EST Note Date & Type Note Facility 05-17-2025 Note Oncology Progress No te Chief Complaint Follow up on elevated plt, pt here with Stephanie. History of Present Illness Sallie is a 84-year-old gentleman was referred to hematology to reestablish and for evaluation of thrombocytosis, leukocytosis, and polycythemia with microcytosis as well. 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 He never called was ordered follow-up with us. He went to [facility] recently and recent labs on revealed the following: Labs on 05/13/2025 revealed leukocytosis with WBC of 38.3 with neutrophilia leukocytosis with WBC of 38.3 with neutrophilia absolute neutrophil count of 34.2 but normal ALC and normal basophils but eosinophil absolute is 1.2 high and normal absolute mono is 2.0 high. Patient also has thrombocytosis with a platelet count of 1,866,000 and hematocrit is high 58.7 with low RBC indices with MCV 66 MCH 19 and RDW is high 28. Creatinine is 1.3 with EGFR of 55. Calcium is normal 10.0. Alk phos 116 LFTs otherwise normal total protein 7.2. Total bili of 0.7. Iron is 23 low however TIBC is normal at 393. TSH is high 7.73. The free T4 is 0.58. The B12 is 1048. Folate is normal 15 and the ferritin is 40. He was noted that Reviewing his old record that this is been persistent since at least September 2023 with leukocytosis. No blasts have been reported in the peripheral WBC differential. Always has neutrophilia monocytosis and eosinophilia mildly as well. It was noted also that his platelet count has been high since September 2023 at least for this could go back in our labs and he was initially anemic but then became polycythemic. Past medical history of hypertension iron deficiency anemia chronic thrombocytosis and chronic leukocytosis. He has venous insufficiency as well. 14 points ROS was obtained and was negative. Review of Systems General: Patient denied fevers or headaches or dizziness. Lymphatic: No enlarged lymphadenopathy. Cardiovascular: Patient denied CP, SOB or leg edema. Respiratory: no cough or SOB or hemoptysis. GI: No nausea or vomiting or diarrhea or constipation or rectal bleeding or emesis or melena. : no gross hematuria or dysuria or frequency currently. Extremities: No edema of the lower extremities. Hematological: No focal masses anywhere and no easy bruising or bleeding tendency. Musculoskeletal: No deformities of the joints or the spine. Neurological: no vision changes or weakness or sensory changes. Physical Exam ECOG PS 1. General: alert, no acute distress HENMT: Normocephalic, atraumatic. Neck: supple and no LAP or thyromegaly. Cardiovascular: regular rate and rhythm, No murmurs Respiratory: Lungs CTA, respirations non labored. Abdomen: Soft nontender nondistended without hepatosplenomegaly or masses clinically. Extremities: no deformity, no edema. Lymph system: Currently she has no lymphadenopathy in her cervical area subclavian area/axillary areas and inguinal areas bilaterally. Neurological: oriented x 4, LOC appropriate for age, CN II-XII intact, motor strength equal & normal bilaterally, sensation normal bilaterally, speech normal Skin: No rash. Psychiatric: Normal mood and interaction. Diagnoses 1. Thrombocytosis (D75.839: Thrombocytosis, unspecified) JAK2 positive 2. Leukocytosis (D72.829: Elevated white blood cell count, unspecified) with left side shift 3. 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 CHENG (iron deficiency anemia) (D50.9: Iron deficiency anemia, unspecified) See the HPI for details. Plan is to do the following test for now and he may need a bone marrow biopsy if no answer is found. Labs include BCR-ABL by PCR, peripheral blood flow cytometry, erythropoietin level, reticulocyte count, LDH, CBC with differential, CMP, ASIM, rheumatoid factor, CELIA, chronic hep panel. Will see him back in 2 to 3 weeks for results. - Also start therapeutic phlebotomy for HCT over 45. - I recommended restarting Hydrea 500 mg once daily but he was adamant that he does not want to retry it since he has leg cramps and nausea. I informed him that we can monitor and treat his toxicities if developed but he refused multiple times. He also refused to even consider Jakafi medication. He wants to do 2 full SA daily with food and do phlebotomy only for now. Start therapeutic phlebotomy this week and every 2 weeks for goal HCT less than 45. RTC in 2-3 weeks. with CBCD every 2 weeks. Follow-up No qualifying data available Medications aspirin 325 mg Tab, 325 mg= 1 tab(s), Oral, BID Vital Signs and Measurements Vital Signs and Measurements This Visit - Last 24 Hours T (more content not included)... [facility] Comment on above: Result Comment: Elec tronically Signed By: Lashanda ANAYA, Orlando Caballero\.br\Date and Time Signed: 05/17/25 16:47 EDT 05-12-2025 Hospital Discharge instructions Patient Education 05/12/2025 17:55:50 Iron Deficiency Anemia, Adult, Qcry-nh-Cgol Iron Deficiency Anemia, Adult Iron deficiency anemia is when you do not have enough red blood cells or hemoglobin in your blood. This happens because you have too little iron in your body. Hemoglobin carries oxygen to parts of the body. Anemia can cause your body to not get enough oxygen. What are the causes? Not eating enough foods that have iron in them. The body not being able to take in iron well. Blood loss. What increases the risk? Having menstrual periods. Being . What are the signs or symptoms? Pale skin, lips, and nails. Weakness, dizziness, and getting tired easily. Feeling like you cannot breathe well when moving (shortness of breath). Cold hands and feet. Mild anemia may not cause any symptoms. How is this treated? This condition is treated by finding out why you do not have enough iron and then getting more iron. It may include: Adding foods to your diet that have a lot of iron. Taking iron pills (supplements). If you are or , you may need to take extra iron. Your diet often does not provide the amount of iron that you need. Getting more vitamin C in your diet. Vitamin C helps your body take in iron. You may need to take iron pills with a glass of orange juice or vitamin C pills. Medicines to make heavy menstrual periods aerosol line operator. Surgery or testing procedures to find what is causing the condition. You may need blood tests to see if treatment is working. If the treatment does not seem to be working, you may need more tests. Follow these instructions at home: Medicines Take tifw-bhi-axurdxr and prescription medicines only as told by your doctor. This includes iron pills and vitamins. Taking them as told is important because too much iron can be harmful. ?Take iron pills when your stomach is empty. If you cannot handle this, take them with food. ?Do not drink milk or take antacids at the same time as your iron pills. ?Iron pills may turn your poop (stool)black. If you cannot handle taking iron pills by mouth, ask your doctor about getting iron through: ?An IV tube. ?A shot (injection) into a muscle. Eating and drinking Talk with your doctor before changing the foods you eat. Your doctor may tell you to eat foods that have a lot of iron, such as: ?Liver. ?Low-fat (lean) beef. ?Breads and cereals that have iron added to them. ?Eggs. ?Dried fruit. ?Dark green, leafy vegetables. Eat fresh fruits and vegetables that are high in vitamin C. They help your body use iron. Foods with a lot of vitamin C include: ?Oranges. ?Peppers. ?Tomatoes. ?Mangoes. Managing constipation If you are taking iron pills, they may cause trouble pooping (constipation). To prevent or treat this, you may need to: Drink enough fluid to keep your pee (urine) pale yellow. Take kjfk-qwz-mlaubkh or prescription medicines. Eat foods that are high in fiber. These include beans, whole grains, and fresh fruits and vegetables. Limit foods that are high in fat and sugar. These include fried or sweet foods. General instructions Return to your normal activities when your doctor says that it is safe. Keep all follow-up visits. Contact a doctor if: You feel like you may vomit (nauseous), or you vomit. You feel weak. You get light-headed when getting up from sitting or lying down. You are sweating for no reason. You have trouble pooping. You have worse breathing with physical activity. You have heaviness in your chest. Get help right away if: You faint. If this happens, do not drive yourself to the hospital. You have a fast heartbeat, or a heartbeat that does not feel regular. Summary Iron deficiency anemia happens when you have too little iron in your body. This condition is treated by finding out why you do not have enough iron in your body and then getting more iron. Take mcrd-xrm-kpvhfcx and prescription medicines only as told by your doctor. Eat fresh fruits and vegetables that are high in vitamin C. Contact a doctor if you have trouble pooping or feel weak. This information is not intended to replace advice given to you by your health care provider. Make sure you discuss any questions you have with your health care provider. Document Revised: 11/28/2022 Document Reviewed: 11/28/2022 [employer] Patient Education [address] 05/12/2025 17:55:46 How to Take Your Blood Pressure, Wxok-nw-Qrnf How to Take Your Blood Pressure Blood pressure measures how strongly your blood is pressing against the zuniga of your arteries. Arteries are blood vessels that carry blood from your heart throughout your body. You can take your blood pressure at home with a machine. You may need to check your blood pressure at home: To check if you have high blood pressure (hypertension). To check your blood pressure over time. To make sure your blood pressure medicine is working. Supplies needed: Blood pressure machine, or monitor. A chair to sit in. This should be a chair where you can sit upright with your back supported. Do not sit on a soft couch or an armchair. Table or desk. Small notebook. Pencil or pen. How to prepare Avoid these things for 30 minutes before checking your blood pressure: Having drinks with caffeine in them, such as coffee or tea. Drinking alcohol. Eating. Smoking. Exercising. Do these things five minutes before checking your blood pressure: Go to the bathroom and pee (urinate). Sit in a chair. Be quiet. Do not talk. How to take your blood pressure Follow the instructions that came with your machine. If you have a digital blood pressure monitor, these may be the instructions: 1.Sit up straight. 2.Place your feet on the floor. Do not cross your ankles or legs. 3.Rest your left arm at the level of your heart. You may rest it on a table, desk, or chair. 4.Pull up your shirt sleeve. 5.Wrap the blood pressure cuff around the upper part of your left arm. The cuff should be 1 inch (2.5 cm) above your elbow. It is best to wrap the cuff around bare skin. 6.Fit the cuff snugly around your arm, but not too tightly. You should be able to place only one finger between the cuff and your arm. 7.Place the cord so that it rests in the bend of your elbow. 8.Press the power button. 9.Sit quietly while the cuff fills with air and loses air. 10.Write down the numbers on the screen. 11.Wait 2 3 minutes and then repeat steps 1 10. What do the numbers mean? Two numbers make up your blood pressure. The first number is called systolic pressure. The second is called diastolic pressure. An example of a blood pressure reading is 120 over 80 (or 120/80). If you are an adult and do not have a medical condition, use this guide to find out if your blood pressure is normal: Normal First number: below 120. Second number: below 80. Elevated First number: 120 129. Second number: below 80. Hypertension stage 1 First number: 130 139. Second number: 80 89. Hypertension stage 2 First number: 140 or above. Second number: 90 or above. Your blood pressure is above normal even if only the first or only the second number is above normal. Follow these instructions at home: Medicines Take rwhn-kup-rilujah and prescription medicines only as told by your doctor. Tell your doctor if your medicine is causing side effects. General instructions Check your blood pressure as often as your doctor tells you to. Check your blood pressure at the same time every day. Take your monitor to your next doctor's appointment. Your doctor will: ?Make sure you are using it correctly. ?Make sure it is working right. Understand what your blood pressure numbers should be. Keep all follow-up visits. General tips You will need a blood pressure machine or monitor. Your doctor can suggest a monitor. You can buy one at a [employer] or online. When choosing one: Choose one with an arm cuff. Choose one that wraps around your upper arm. Only one finger should fit between your arm and the cuff. Do not choose one that measures your blood pressure from your wrist or finger. Where to find more information [employer] [employer]: www.heart.org Contact a doctor if: Your blood pressure keeps being high. Your blood pressure is suddenly low. Get help right away if: Your first blood pressure number is higher than 180. Your second blood pressure number is higher than 120. These symptoms may be an emergency. Do not wait to see if the symptoms will go away. Get help right away. Call 911. Summary Check your blood pressure at the same time every day. Avoid caffeine, alcohol, smoking, and exercise for 30 minutes before checking your blood pressure. Make sure you understand what your blood pressure numbers should be. This information is not intended to replace advice given to you by your health care provider. Make sure you discuss any questions you have with your health care provider. Document Revised: 07/04/2022 Document Reviewed: 07/04/2022 [employer] Patient Education [address] Follow Up Care 05/09/2025 09:03:09 With:Sarah RUIZ, Babatunde Correia, KALPESH, MED Address: [address] [place] [address] [facility] [address] [address] [phone] When:Within 6 Month(s) Comments:follow up/sooner depending on labs [facility] 05-12-2025 Note Patient Education Hematology Iron Deficiency Anemia, Adult Iron deficiency anemia is when you do not have enough red blood cells or hemoglobin in your blood. This happens because you have too little iron in your body. Hemoglobin carries oxygen to parts of the body. Anemia can cause your body to not get enough oxygen. What are the causes? Not eating enough foods that have iron in them. ??? The body not being able to take in iron well. ??? Blood loss. What increases the risk? Having menstrual periods. ??? Being . What are the signs or symptoms? Pale skin, lips, and nails. ??? Weakness, dizziness, and getting tired easily. ??? Feeling like you cannot breathe well when moving (shortness of breath). ??? Cold hands and feet. Mild anemia may not cause any symptoms. How is this treated? This condition is treated by finding out why you do not have enough iron and then getting more iron. It may include: ??? Adding foods to your diet that have a lot of iron. ??? Taking iron pills (supplements). If you are or , you may need to take extra iron. Your diet often does not provide the amount of iron that you need. ??? Getting more vitamin C in your diet. Vitamin C helps your body take in iron. You may need to take iron pills with a glass of orange juice or vitamin C pills. ??? Medicines to make heavy menstrual periods aerosol line operator. ??? Surgery or testing procedures to find what is causing the condition. You may need blood tests to see if treatment is working. If the treatment does not seem to be working, you may need more tests. Follow these instructions at home: Medicines ??? Take iobm-piu-qwpjjdf and prescription medicines only as told by your doctor. This includes iron pills and vitamins. Taking them as told is important because too much iron can be harmful. ? Take iron pills when your stomach is empty. If you cannot handle this, take them with food. ? Do not drink milk or take antacids at the same time as your iron pills. ? Iron pills may turn your poop (stool)black. ??? If you cannot handle taking iron pills by mouth, ask your doctor about getting iron through: ? An IV tube. ? A shot (injection) into a muscle. Eating and drinking ??? Talk with your doctor before changing the foods you eat. Your doctor may tell you to eat foods that have a lot of iron, such as: ? Liver. ? Low-fat (lean) beef. ? Breads and cereals that have iron added to them. ? Eggs. ? Dried fruit. ? Dark green, leafy vegetables. ??? Eat fresh fruits and vegetables that are high in vitamin C. They help your body use iron. Foods with a lot of vitamin C include: ? Oranges. ? Peppers. ? Tomatoes. ? Mangoes. Managing constipation If you are taking iron pills, they may cause trouble pooping (constipation). To prevent or treat this, you may need to: ??? Drink enough fluid to keep your pee (urine) pale yellow. ??? Take scpv-clg-yushntt or prescription medicines. ??? Eat foods that are high in fiber. These include beans, whole grains, and fresh fruits and vegetables. ??? Limit foods that are high in fat and sugar. These include fried or sweet foods. General instructions ??? Return to your normal activities when your doctor says that it is safe. ??? Keep all follow-up visits. Contact a doctor if: ??? You feel like you may vomit (nauseous), or you vomit. ??? You feel weak. ??? You get light-headed when getting up from sitting or lying down. ??? You are sweating for no reason. ??? You have trouble pooping. ??? You have worse breathing with physical activity. ??? You have heaviness in your chest. Get help right away if: ??? You faint. If this happens, do not drive yourself to the hospital. ??? You have a fast heartbeat, or a heartbeat that does not feel regular. Summary ??? Iron deficiency anemia happens when you have too little iron in your body. ??? This condition is treated by finding out why you do not have enough iron in your body and then getting more iron. ??? Take caga-yci-civmjyv and prescription medicines only as told by your doctor. ??? Eat fresh fruits and vegetables that are high in vitamin C. ??? Contact a doctor if you have trouble pooping or feel weak. This information is not intended to replace advice given to you by your health care provider. Make sure you discuss any questions you have with your health care provider. Document Revised: 11/28/2022 Document Reviewed: 11/28/2022 [employer] Patient Education ? 2023 [employer] Procedures How to Take Your Blood Pressure Blood pressure measures how strongly your blood is pressing against the zuniga of your arteries. Arteries are blood vessels that carry blood from your heart throughout your body. You can take your blood pressure at home with a machine. You may need to check your blood pressure at home: ??? To check if you have high blood pressure (hypertension). ??? To [facility] (more content not included)... [facility] 05-12-2025 Evaluation + Plan note Future Scheduled [id number] 05/12/25TIBC Calculated 05/12/25TSH With T4fr Reflex 05/12/25CBC w/ Auto Diff 05/12/25Comprehensive Metabolic Panel 05/12/25Ferritin 05/12/25Folate Level 05/12/25Iron Level 05/12/25Lipid Panel 05/12/25Vitamin B12 Level 05/12/25 [facility] 11-18-2023 Evaluation + Plan note Future Scheduled TestsCBC w/ Auto Diff 11/18/23CBC w/ Auto Diff 12/02/23CBC w/ Auto Diff 12/16/23Comprehensive Metabolic Panel 11/18/23Comprehensive Metabolic Panel 12/02/23Comprehensive Metabolic Panel 12/16/23Ferritin 12/15/23Iron Level 12/15/23Iron Percent Saturation 12/15/23Transferrin 12/15/23 [facility] 10-22-2023 Note HNO ID: [id number] Author: Chapo sOhea APRN.RISK ADJUSTMENT SPECIALIST Service: ? Author Type: Nurse Specialist Type: Progress Notes Filed: 10/28/2023 8:19 AM Note Text: [facility] NOTE NAME: NATTY GRIMALDO NO.: [id number] DATE OF SERVICE: 10/22/2023 [facility] DATE OF : 1940 REASON FOR VISIT: The patient is a resident of [facility]. This is a skilled visit for cellulitis [...] therapy services as needed. DICTATED BY: YINA Carlisle/Oscar JOB# [id number] cc: [facility] 10-14-2023 Note HNO ID: [id number] Author: Chapo Oshea APRN.RISK ADJUSTMENT SPECIALIST Service: ? Author Type: Nurse Specialist Type: Progress Notes Filed: 10/16/2023 7:48 AM Note Text: [facility] NOTE NAME: NATTY GRIMALDO NO.: [id number] DATE OF SERVICE: 10/14/2023 [facility] DATE OF : 1940 REASON [...] working with therapy services. DICTATED BY: YINA Carlisle/Oscar JOB# [id number] cc: [facility] 10-09-2023 Note HNO ID: [id number] Author: Chapo Oshea APRN.RISK ADJUSTMENT SPECIALIST Service: ? Author Type: Nurse Specialist Type: Progress Notes Filed: 10/14/2023 7:39 AM Note Text: [facility] NOTE NAME: VIKAS GRIMALDORICHARDLEXA NO.: [id number] DATE OF SERVICE: 10/09/2023 [facility] DATE OF : 1940 REASON FOR VISIT: The patient is a resident of [facility]. This is a skilled visit for cellulitis [...] therapy services. DICTATED BY: YINA Carlisle JOB# [id number] cc: [facility] 10-09-2023 History of Present illness Narrative [facility] NOTE NAME: NATTY GRIMALDO NO.: [id number] DATE OF SERVICE: 10/09/2023 [facility] DATE OF : 1940 REASON FOR VISIT: The patient is a resident of [facility]. This is a skilled visit for cellulitis [...] therapy services. DICTATED BY: YINA Carlisle/Oscar JOB# [id number] cc:DR Reynaldo Galeano [facility] documented in this encounter [facility] 10-06-2023 Note HNO ID: [id number] Author: Kandy Greenwood Service: ? Author Type: Physician Type: Progress Notes Filed: 10/07/2023 5:39 PM Note Text: [facility] NOTE NAME: NATTY GRIMALDO NO.: [id number] DATE OF SERVICE: 10/06/2023 [facility] DATE OF : 1940 New Patient History and Physical HISTORY OF PRESENT ILLNESS: The patient is an 82-year-old male who was admitted to us from [facility] with the diagnosis of status post [...] therapy. DICTATED BY: MD BLAYNE Osborn/Oscar JOB# [id number] cc:DR Jacobs [facility] 10-06-2023 History of Present illness Narrative [facility] NOTE NAME: NATTY GRIMALDO NO.: [id number] DATE OF SERVICE: 10/06/2023 [facility] DATE OF : 1940 New Patient History and Physical HISTORY OF PRESENT ILLNESS: The patient is an 82-year-old male who was admitted to us from [facility] with the diagnosis of status post [...] therapy. DICTATED BY: MD BLAYNE Osborn/Oscar JOB# [id number] cc:DR Jacobs [facility] documented in this encounter [facility] 10-03-2023 Evaluation + Plan note Extrac [...] tract calculi or hydronephrosis. -No need for PRODUCTION CONTROL CLERK at this time. May stop NS. Nonoliguric. 2. Thrombocytosis likely from infection: Plt continues to improve; down to 172 from 1273. -Hematology consulted. 3. Lt Foot Abscess: WBC 36.8. Hgb A1C 5.6%. MRI left foot abscess. Underwent I&D on 09/30. -Managed per Dr Dolce, podiatry. - Currently on vancomycin and cefepime. [...] ate:10/03/23 Stable Discharge To, Anticipated II - Jail Unit Discharged to - Home independently Prescriptions [...] With When Contact Information Luis Snowden [address] [place] [address] [phone] Business (1) Additional Instructions: Establish care Mhd Lashanda Additional Instructions: Thrombocytosis King Rupinder [address] [facility], [address] [facility] [address] [place] [phone]- [phone] Business (1) Additional Instructions: CHENG Cervantes [facility] [address] [place] [address]- Business (1) Additional Instructions: [facility] [employer] Additional Instructions: Vinod Quinteros Within 5 to 7 days [facility] [address] [place] [phone] Business (1) Additional Instructions: Flor - [...] tract calculi or hydronephrosis. -No need for PRODUCTION CONTROL CLERK at this time. May reduce NS to [...] bear with post op shoe agree with fpc until antibiotics are completed with picc line pending ID recs -pt will be seen post op in office next week. -dressing can be changed before discharge to fpc apply betadine to sutures gauze kerlix and celia with post op shoe Extracted from: Title:Acute Renal Failure * Author:Helen ANAYA, Leatha messina Date:10/01/23 Impression and Plan 1. JOSELINE with unknown baseline Cr: Likely from left foot abscess. UA with 1+ protein. Cr stable at 1.8mg/dl since admission. Ct appears to show R kidney cyst. No significant urinary tract calculi or hydronephrosis. -No need for PRODUCTION CONTROL CLERK at this time. May reduce NS to [...] is n.p.o. Extracted from: Title:JOSELINE Author:Mildred Vasquez CNP. Date:09/30/23 Impression and Plan 1. JOSELINE likely [...] tract calculi or hydronephrosis. -No need for PRODUCTION CONTROL CLERK at this time. -UA and PCR ordered. [...] Appointments Appointment Date:10/14/2023 03:00:00 PM Scheduled Provider: Location:.ONCOLOGY Appointment Type:ONC Office Visit 30 (FT) [facility]11-30-2023 Hospital Discharge instructions Follow Up Care 10/02/2023 07:56:09 With:Orlando Pyle Address: [facility] [address] [place] [address] [place] [address]- [phone] Business (1) When: Unknown Comments:- CBC today [...] weeks in office with iron studies prior. [facility]11-28-2023 Hospital Discharge instructions Patient Education 09/30/2023 17:23:43 Flor - Post Operative Instructions (Revised 06/30/14) (Custom) [place], [place] Vinod Quinteros, DPM, FACFAS POST OPERATIVE INSTRUCTIONS Keep bandage [...] feel free to call the doctor at: [phone] or [phone] Quinteros paged. Patient signatureDate Dr. Vinod Quinteros DPJeannine, FACFASDate Revised: 2-08 Follow Up Care 09/29/2023 16:21:37 With:Luis Snowden Address: [address] [place], [place] [phone] Business (1) When: Unknown Comments:Establish care With:Orlando Pyle Address:Unknown When: Unknown Comments:Thrombocytosis With:Fernando Bucio Address: [address], [facility] [address] [facility] [address] [place] [address]- [phone] Business (1) When: Unknown Comments:CHENG With:Manav Cervantes Address: [facility] [address] [place] [address]- Business (1) When: Unknown Comments:CKD With:[employer] Address:Unknown When: Unknown With:Vinod Quinteros Address: [facility] [address] [place] [address] 0 Business (1) When:5 to 7 days [facility] Future Appointments Appointment Date:10/21/2023 01:00:00 PM Scheduled Provider: Location:.ONCOLOGY Appointment Type:ONC Misc Treatment (FT) Appointment Date:10/24/2023 01:45:00 PM Scheduled Provider: [facility] Type:PT Eval (FT) Appointment Date:11/04/2023 01:00:00 PM Scheduled Provider: Location:.ONCOLOGY Appointment Type:ONC Misc Treatment (FT) Appointment Date:12/04/2023 12:15:00 PM Scheduled Provider:Fernando Bucio MD Location:[facility] Appointment Type:BADH Follow Up Appointment Date:12/15/2023 02:00:00 PM Scheduled [...] Iron Percent Saturation 12/15/23 * Transferrin [facility]15/23 [facility] Future App[facility]ments Appointment Date:10/24/2023 01:45:00 PM Scheduled Provider: [facility] Appoint[facility] Type:PT Eval () Appointment Date:10/28/2023 11:00:00 AM Scheduled Provider: [facility] Type:ONC Venofer () Appointment Date:11/04/2023 10:00:00 AM Scheduled Provider: Location:.ONCOLOGY Appointment Type:ONC Venofer (FT) Appointment Date:11/04/2023 01:00:00 PM Scheduled Provider: Location:.ONCOLOGY Appointment Type:ONC Misc Treatment () Appointment Date:11/11/2023 11:00:00 AM Scheduled Provider: Location:.ONCOLOGY Appointment Type:ONC Venofer (FT) Appointment Date:12/04/2023 12:15:00 PM Scheduled Provider:Fernando Bucio MD Location:[facility] Appointment Type:[facility] Follow Up Appointment Date:12/15/2023 02:00:00 PM [...] Iron Percent Saturation 12/15/23 * Transferrin 12/15/23 [facility] Future App[facility]ments Appointment Date:11/04/2023 10:00:00 AM Scheduled Provider: Location:.ONCOLOGY Appointment Type:ONC Venofer (FT) Appointment Date:11/04/2023 01:00:00 PM Scheduled Provider: Location:.ONCOLOGY Appointment Type:ONC Misc Treatment (FT) Appointment Date:11/11/2023 11:00:00 AM Scheduled Provider: Location:.ONCOLOGY Appointment Type:ONC Venofer (FT) Appointment Date:12/04/2023 12:15:00 PM Scheduled Provider:Fernando Bucio MD Location:[facility] Appointment Type:BAD [...] Iron Percent Saturation 12/15/23 * Transferrin 12/15/23 [facility] Future Appointments Appointment Date:11/18/2023 01:00:00 PM Scheduled Provider: Location:.ONCOLOGY Appointment Type:ONC Misc Treatment (FT) Appointment Date:12/02/2023 10:00:00 AM Scheduled Provider: Location:.ONCOLOGY Appointment Type:ONC Misc Treatment (FT) Appointment Date:12/04/2023 12:15:00 PM Scheduled Provider:Fernando Bucio MD Location:[facility] Appointment Type:BAD [...] Iron Percent Saturation 12/15/23 * Transferrin 12/15/23 [facility] Future Appointments Appointment Date:12/15/2023 02:00:00 PM Scheduled Provider:Lashanda ANAYA, Orlando Caballero [facility] Office Visit 30 (FT) Appointment Date:02/16/2024 12:00:00 PM Scheduled Provider: Location:[facility] Appointment Type:Surgery FT Future Scheduled Tests Laboratory* CBC w/ Auto Diff 11/18/23 * CBC w/ Auto Diff 12/02/23 * CBC w/ Auto Diff 12/16/23 * Comprehensive Metabolic Panel 11/18/23 * Comprehensive Metabolic Panel 12/02/23 * Comprehensive Metabolic Panel 12/16/23 * Ferritin 12/15/23 * Iron Level 12/15/23 * Iron Percent Saturation 12/15/23 * Transferrin 12/15/23 [facility] Evaluation + Plan note Future Appointments Appointment Date:02/16/2024 12:00:00 PM Scheduled Provider: Location:[facility] Appointment Type:Surgery FT Future Scheduled Tests Laboratory* CBC w/ Auto Diff 11/18/23 * CBC w/ Auto Diff 12/02/23 * CBC w/ Auto Diff 12/16/23 * Comprehensive Metabolic Panel 11/18/23 * Comprehensive Metabolic Panel 12/02/23 * Comprehensive Metabolic Panel 12/16/23 * Ferritin 12/15/23 * Iron Level 12/15/23 * Iron Percent Saturation 12/15/23 * Transferrin 12/15/23 [facility] Future Appointments Appointment Date:10/20/2023 02:30:00 PM Scheduled Provider: [facility] Type:ON[facility] Office Visit 30 (FT) Appointment Date:12/04/2023 12:15:00 PM Scheduled Provider:Fernando Bucio MD Location:[facility] Appointment Type:[facility] Follow Up [facility] information available [facility] Work Phone: [facility] Narrative No data available for this section [facility] No data available for this section [facility] No data available for this section [facility] (narrative)No reason for referral information availableWood [facility] Work Phone: Summary Purpose Family History No Family History Records Found Advance Directives No Advanced Directives Records Found Advance Directive Response Recorded Date/ Time Advance Directives No May 24 9:36am Chief Complaint and Reason for Visit Chief Complaint Admit Date Driving eval June 02, 2025 2:11 pm Additional Source Comments Patient Care team informatio n (unrecognized section and content) Team Status: Active Member Role Status Dates PHYSICIAN NO FAMILY Primary Care Provider Active Team Status: Inactive Member Role Status Dates PHYSICIAN NO FAMILY Primary Care Provider Active Start: February 24, 2024 End: February 24, 2024 Carmen Calloway MD Attending Provider Active St art: February 24, 2024 End: February 24, 2024 Team Status: Active Member Role Status Dates Babatunde Smith APRN Primary Care Provider Active Team Status: Inactive Member Role Status Dates Babatunde Smith APRN Primary Care Provider Active Start: June 02, 2025 End: June 02, 2025 Babatunde Smith APRN Attending Provider Active Start: June 02, 2025 End: June 02, 2025 Source Comments (unrecognize d section and content) In the event this informatio n is protected by the Federal Confidentiality of Alcohol and Drug Abuse Patient Records regulations: The Federal rules restrict any use of the information to criminally investigate or prosecute any alcohol or drug abuse patient.[facility] the event this information is protected by the Federal Confidentiality of Alcohol and Drug Abuse Patient Records regulations: The Federal rules restrict any use of the information to criminally investigate or prosecute any alcohol or drug abuse patient.[facility] (unrecognized sect ion and content) No [...] section and content) DATE CREATED AUTHOR 10/23/2023 [facility] DATE CREATED AUTHOR AUTHOR'S ORGANIZ ATION 10/30/2023 [facility] DATE CREATED AUTHOR AUTHOR'S ORGANIZ ATION 05/17/2025 [facility] DATE CREATED AUTHOR AUTHOR'S ORGANIZ ATION 05/18/2025 [facility] DATE CREATED AUTHOR AUTHOR'S ORGANIZ ATION 05/22/2025 [facility] DATE CREATED AUTHOR AUTHOR'S ORGANIZ ATION 06/18/2025 [facility] Goals (unrecognized section and content) [...] BE BASED ON THE PRIMARY CLINICAL RECORDS. [employer] [facility]. provides no warranty or guarantee of the accuracy or completeness of information in this document.
--- NOTE | 2025-07-11 12:15 | ECG_ITS ---
The [facility] Test Date: 2025-07-11 Pat Name: ASHLEIGH GRIMALDO Department: Room: - Gender: Male Audit Manager: : 1940 Requested By: [id number] Order Number: [id number] Reading MD: REDDY BELLO Measurements Intervals [place] Rate: 125 P: -[id number] HI: -48793 QRS: 102 QRSD: 104 T: 55 QT: 338 QTc: 412 Interpretive Statements 38741 Probable Atrial fibrillation with rapid ventricular response 7100 Abnormal right axis deviation Significant baseline artifact 9140 abnormal rhythm ECG Compared to ECG 09/16/2024 18:37:02 Right-axis deviation now present Sinus rhythm no longer present Electronically Signed On 07-11-2025 19:11:58 EDT by REDDY BELLO
--- NOTE | 2025-07-11 12:15 | XR_ITS ---
The [address] [address] Patient Name: ASHLEIGH GRIMALDO MRN: [id number] date: 1940 Sex: M Assigned Patient Location: ER Current Patient Location: ER Accession/Order Number: [id number] Exam Date: 07/11/2025 13:25 Report Date: 07/11/2025 14:06 At the request of: MALICK STEEL Procedure: XR hip RT 2V w/ pelvis CLINICAL HISTORY: Patient fell last night and was found outside on the ground this morning. Right hip pain and left foot swelling. AP RECUMBENT CHEST 1313 hours COMPARISON: CT 09/16/2024 The heart is within normal limits. There is no vascular congestion. There is mild atelectasis and/or scarring. No focal consolidation is noted. There is no sizable effusion. There is question of a pleural reflection at the lower right lung and pneumothorax is not excluded within limits of this single view. The bony structures are osteopenic. There are degenerative changes shoulders, greater on the left. XR/XR hip RT 2V w/ pelvis IMPRESSION: MILD ATELECTASIS OR SCARRING. EQUIVOCAL RIGHT-SIDED PNEUMOTHORAX. CLINICAL CORRELATION IS RECOMMENDED ALONG WITH FOLLOW-UP, WARRANTED. LEFT FOOT - 3 views COMPARISON: None AP, lateral and oblique views were obtained. There is deformity at the shaft of the proximal phalanx of the fifth toe that might represent fracture, though not definitely acute. There is no other acute fracture or dislocation. Joint space narrowing with hypertrophy and sclerosis are seen at the first metatarsal phalangeal joint. There is minor dorsal soft tissue swelling. IMPRESSION: DEGENERATIVE CHANGE AT THE FIRST TOE. PROBABLE OLD FRACTURE AT THE FIFTH TOE HOWEVER FOCAL CLINICAL CORRELATION IS RECOMMENDED. NO ADDITIONAL ACUTE FINDINGS. RIGHT HIP WITH AP PELVIS - 3 views COMPARISON: CT 09/16/2024 AP view of the pelvis as well as AP and frog-lateral views of the right hip were obtained. No acute fracture or dislocation is identified. The hip joint spaces are maintained. There is no significant arthritic disease. There is sclerosis at the SI joints. There is degenerative change at the lower imaged lumbar spine where L4 compression deformity is again noted. No soft tissue abnormalities are present. IMPRESSION: NO ACUTE BONY FINDINGS. Impression dictated by: Asiya Garcia M.D. 07/11/2025 2:06 PM Dictation Location: [place] [address] Electronically authenticated by: [id number] Y Date: 07/11/2025 14:06
--- NOTE | 2025-07-11 12:23 | ED_ITS ---
HPI HPI - General Adult General Chief complaint: Extremity Injury, Lower Stated complaint: HIP PAIN FALL Time Seen by Provider: 07/11/25 11:56 Source: patient Mode of arrival: Wheelchair Limitations: no limitations History of Present Illness HPI narrative: 84-year-old male presents to the emergency department with complaints of right hip pain after a fall outside. Patient states that he was pushing on a cage and tripped and fell and had been outside since about 6 PM last night, about 18 hours. He was unable to get up and his neighbor who farms on his land found him this morning and brought him here. his neighbor states that he does check in on patient as he lives alone. Patient does walk with a cane at baseline and has had right hip pain prior to this fall. Patient is somewhat of a poor historian and his neighbor does provide some of the history. Patient does note that he did hit his head and has been pretty compliant with taking full dose aspirin daily. He is unsure why he takes aspirin daily but was told to do so. His neighbor states that he has also started to get a lot of swelling and redness in his left foot. Patient states that this started about 3 days ago. He has had a previous surgery on it about a year ago for infection. Related Data Previous Rx's ?Medication ?Instructions ?Recorded acetaminophen 500 mg tablet 1,000 mg (2 x 500 mg) PO Q 6H PRN 09/19/24 Pain Scale 1-3 #0 tabs aspirin 325 mg tablet 325 mg PO DAILY #30 tabs Allergies Allergy/AdvReac Type Severity Reaction Status Date / Time No Known Drug Allergies Allergy Verified 07/11/25 12:09 Opioid HPI Opioid Management Most Recent Opioid Data: Last Pain Scale 8 Today, 12:00 Last Pain Intensity 0 09/17/24, 10:03 Last ORT Total Score 0 09/17/24, 00:33 Last ORT Risk Category Low Risk 09/17/24, 00:33 Review of Systems ROS Status of ROS 10 or more systems reviewed and unremark able except as noted in history and below [facility] Medical History (Updated 07/11/25 @ 16:43 by DAMIÁN Austin) Ribs, multiple fractures ?S22.49XA - Multiple fractures of ribs, unspecified side, initial encounter for closed fracture (ICD-10) Chronic myeloproliferative disorder ?D47.1 - Chronic myeloproliferative disease (ICD-10) Thyroid disease ?E07.9 - Disorder of thyroid, unspecified (ICD-10) Family History (Updated 09/17/24 @ 05:52 by Destini Celis RN) Mother Family history of cancer Family history of hypertension Father Family history of hypertension Social History Highest level of school completed/degree received: Bachelor's degree Little interest or pleasure in doing things: not at all Feeling down, depressed, or hopeless: not at all Exam Narrative Exam Narrative: General: No distress, age-appropriate Skin: Extremities cold, dry, no pallor. No rash. Left foot with surgical scar on dorsal aspect, erythema, 3+ pitting edema Head: Normocephalic, small superficial laceration/abrasion to forehead, hemostatic Neck: Supple, non-tender. Eye: Pupils are equal, round and EOMI. No scleral icterus. Ears, Nose, Mouth, and Throat: No nasal mucosal hypertrophy. Oral mucosa is moist, no posterior oropharynx erythema, uvula is mid-line. Poor dentition. Cardiovascular: Tachycardic, A. Fib with RVR on arrival, without murmur, gallop or rub. Respiratory: No accessory muscle use or respiratory distress. Lungs are clear to auscultation, no wheezing, rales or rhonchi Chest Wall: no tenderness Back: No midline thoracic or lumbar vertebral tenderness. Musculoskeletal: Full ROM of all extremities except R hip secondary to pain, no calf or popliteal tenderness, BLE edema, 3+ pitting on the R foot GI: Abdomen is soft, non-distended, non tender to palpation. No masses appreciated. No rebound, guarding, or rigidity noted. Neurological: A&O x4. No cranial nerve dysfunction observed. No truncal ataxia. Moves all extremities, pain with R hip movement or palpation. Sensation intact. Psychiatric: Cooperative and interactive. Normal mood and affect. Constitutional Vital Signs, click to edit/add: Last Vital Signs Temp 98.3 F 07/11/25 15:22 Pulse 98 H 07/11/25 16:20 Resp 16 07/11/25 16:20 BP 143/99 H 07/11/25 16:16 Pulse Ox 95 07/11/25 16:20 O2 Del Method Room Air 07/11/25 13:59 Course Reevaluation(s) Reevaluation #1: Critical lab of WBC 65.8 and Platelet 2532 called to myself. This is consistent with past lab values with his Kale 2 mutated myeloproliferative disorder. Critical lab called to me which was Myoglobin 1,078. Diaz, Uro jet, and bolus NS 500ml ordered, then will continue at 200ml/hr. Patient updated that he will be admitted as he is hypothermic on arrival, in A.Fib with RVR on arrival with no previous diagnosis of this, and in rhabdo. CT of Head and Xrays pending. Time: 13:26 Reevaluation #2: Rectal temp 96.6, patient converted to NSR, HR in the mid 80's after diaz catheter was placed. Patient continues to rest comfortably on the ED cart. Time: 13:56 Reevaluation #3: Rectal temp 98.3. Stefan Hugger turned off. Patient states he is too warm now with blankets on. Still in no distress, only complains of Right Hip pain. Dr Larsen spoke with Hospitalist for admission, Dr العراقي accepted. I updated patient with CT results and that he has a Pubic Rami fracture and Rhabdo and that is what we would be admitting for. Patient's neighbor has been at bedside the entire ED course and would like to be able to call and get updates about his progress. We did speak briefly that patient may need to go to a SNF again once recovered as he will have pain in his Right Hip likely and need to use a walker for awhile. All questions answered. Time: 16:17 Vital Signs Vital signs: Vital Signs Pulse Rate 156 H 07/11/25 11:59 Respiratory Rate 16 07/11/25 11:59 Temperature 98.3 F 07/11/25 15:22 Pulse Rate 98 H 07/11/25 16:20 Respiratory Rate 16 07/11/25 16:20 Blood Pressure 143/99 H 07/11/25 16:16 Pulse Oximetry 95 07/11/25 16:20 Oxygen Delivery Method Room Air 07/11/25 13:59 Medical Decision Making MDM Narrative Medical decision making narrative: Patient is a 84-year-old male with a PMH of JAK2 mutated myeloproliferative disorder that presents to the emergency department via private vehicle with complaints of right hip pain after a trip and fall last evening. Patient was unable to get up and laid outside since about 6 PM last night until his neighbor found him this morning. His neighbor provides some of the history as he is somewhat of a poor historian. The neighbor does check on him as he lives alone. On arrival he is alert and oriented x 4, but unable to give clear past medical history. Oral temp on arrival unable to be obtained, rectal temp 93.8. Stefan hugger placed. EKG and alarm security or surveillance monitor in place, A-fib with RVR noted with heart rate ranging from 130s to 150s. No previous history of A.Fib. BP stable. Patient in no respiratory distress. Patient did hit his head and does have a tiny superficial laceration to his forehead and states he does take a full dose aspirin most days. X-ray right hip, left foot, CT head without, chest x-ray ordered. Blood cultures, CBC, BMP, myoglobin, CPK, troponin, UA ordered. Chest x-ray with questionable PTX on the right, chest x-ray reordered with expiratory view. I reviewed this and original CXR and lung marking are present past this likely projection on the first xray and not present on the second. X- ray right hip appears negative. CT right hip ordered that was positive for a right pubic rami fracture. CT Head negative. Trop negative. WBC 65.8 and platelets 2532 that have been high with his known myleoproliferative disease. He has seen a Manager Training [employer] but does not want to take the prescription medication they prescribed. He has been taking full dose ASA daily, unclear if this is for pain or recommended by another physician. Myoglobin 1078, Diaz catheter placed to monitor urine output, initial bolus of 500 mL of normal saline given, maintenance rate set at 200 mL/hour. Initial CPK 284. Will start patient on Ancef for the cellulitis on his Left foot. X-ray left foot appears to have a healing fracture of the 5th proximal phalanx, but otherwise negative. He states that he had surgery on this foot for an infection about a year ago . Once patients temperature reached 96.6F patient converted to NSR with no medication intervention. Patients rectal temp did reach 98.3 and Stefan hugger was turned off. Patients blood pressure, respiratory status, and mental status remained stable during his ER Course. We called for admission and patient was admitted by Dr العراقي for Rhabdo, Hypothermia, Left Foot cellulitis, and pain with R Pubic Rami fracture after a fall and found down outside all night. Differential Diagnosis Differential Diagnosis: Right Hip fracture, Hypothermia, A.Fib with RVR, ACS, Lab Data Labs: Lab Results 07/11/25 07/11/25 Range/Units 12:20 13:48 WBC 65.8 H* (4.0-11.0) 10^3/uL RBC 7.98 H (4.70-6.10) 10^6/uL Hgb 16.9 (14.0-18.0) g/dL Hct 62.8 H (42.0-54.0) % MCV 70.4 L (80.0-94.0) fL MCH 18.9 L (25.9-34.0) pg MCHC 26.9 L (29.9-35.2) g/dL RDW 30.1 H (11.0-15.0) % Plt Count 2532 H* (150-450) 10^3/uL MPV 9.7 (9.5-13.5) fL Seg Neuts % (Manual) 91.0 H (43.0-75.0) Lymphocytes % (Manual) 1.0 L (20.5-60.0) % Monocytes % (Manual) 8.0 (1.7-12.0) % Eosinophils % (Manual) 0.0 L (0.9-7.0) % Basophils % (Manual) 0.0 L (0.2-2.0) % Neutrophils # (Manual) 59.87 H (1.4-6.5) 10^3/uL Lymphocytes # (Manual) 0.65 L (1.20-3.80) 10^3/uL Monocytes # (Manual) 5.26 H (0.30-0.80) 10^3/uL Eosinophils # (Manual) 0.00 (0.00-0.70) 10^3/uL Basophils # (Manual) 0.00 (0.00-0.10) 10^3/uL Nucleated RBCs 1 Giant Platelets 1+ Anisocytosis 2+ Sodium 136 (136-145) mmol/L Potassium 5.5 H (3.5-5.1) mmol/L Chloride 98 (98-107) mmol/L Carbon Dioxide 22.0 (21.0-32.0) mmol/L Anion Gap 21.5 BUN 39.0 H (7.0-18.0) mg/dL Creatinine 1.21 (0.70-1.30) mg/dL Est GFR ( Amer) >60 (>=60 mL/min/1.73m^2) Est GFR (Non-Af Amer) 57 L (>=60 mL/min/1.73m^2) BUN/Creatinine Ratio 32.2 Glucose 103 (74-106) mg/dL Calcium 9.3 (8.5-10.1) mg/dL Total Creatine Kinase 284 (39-308) U/L Myoglobin 1078 H* (16-96) ng/mL Troponin I High Sens 21.3 (4.0-76.1) pg/mL Urine Color Yellow (YELLOW) Urine Clarity Clear (CLEAR) Urine pH 5.5 (5.0-9.0) Ur Specific Roland >=1.030 A (1.005-1.025) Urine Protein 100 A (NEG/TRACE) mg/dL Urine Glucose (UA) Negative (NEGATIVE) mg/dL Urine Ketones Trace A (NEGATIVE) mg/dL Urine Occult Blood Small A (NEGATIVE) Urine Nitrite Negative (NEGATIVE) Urine Bilirubin Small A (NEGATIVE) Urine Urobilinogen 0.2 (0.2-1.0) EU/dL Ur Leukocyte Esterase Negative (NEGATIVE) Urine RBC 2-5 A (0-2) #/HPF Urine WBC 0-2 A (NONE SEEN) #/HPF Ur Squamous Epith Cells Rare (NONE/RARE) #/LPF Urine Crystals None seen (None Seen) #/HPF Urine Bacteria Moderate A (NONE SEEN) #/HPF Urine Casts None seen (NONE SEEN) #/LPF Urine Mucus Trace A (NONE SEEN) Ur Culture Indicated? Yes-[facility] [place] Discharge Plan Discharge Chief Complaint: Extremity Injury, Lower Clinical Impression: Rhabdomyolysis, Hypothermia, Fracture of pubic ramus Patient Disposition: Admitted As Inpatient Time of Disposition Decision: 16:43 Condition: Fair
[2025-07-11 12:31] LABS: Hematocrit 62.8 % (42.0-54.0); Hemoglobin 16.9 g/dL (14.0-18.0); Mean Corpuscular HGB Conc 26.9 g/dL (29.9-35.2); Mean Corpuscular Hemoglobin 18.9 pg (25.9-34.0); Mean Corpuscular Volume 70.4 fL (80.0-94.0)
--- NOTE | 2025-07-11 12:35 | XR_ITS ---
The [address] [address] Patient Name: ASHLEIGH GRIMALDO MRN: [id number] date: 1940 Sex: M Assigned Patient Location: ER Current Patient Location: ER Accession/Order Number: [id number] Exam Date: 07/11/2025 13:25 Report Date: 07/11/2025 14:06 At the request of: MALICK STEEL Procedure: XR hip RT 2V w/ pelvis CLINICAL HISTORY: Patient fell last night and was found outside on the ground this morning. Right hip pain and left foot swelling. AP RECUMBENT CHEST 1313 hours COMPARISON: CT 09/16/2024 The heart is within normal limits. There is no vascular congestion. There is mild atelectasis and/or scarring. No focal consolidation is noted. There is no sizable effusion. There is question of a pleural reflection at the lower right lung and pneumothorax is not excluded within limits of this single view. The bony structures are osteopenic. There are degenerative changes shoulders, greater on the left. XR/XR foot LT min 3V IMPRESSION: MILD ATELECTASIS OR SCARRING. EQUIVOCAL RIGHT-SIDED PNEUMOTHORAX. CLINICAL CORRELATION IS RECOMMENDED ALONG WITH FOLLOW-UP, WARRANTED. LEFT FOOT - 3 views COMPARISON: None AP, lateral and oblique views were obtained. There is deformity at the shaft of the proximal phalanx of the fifth toe that might represent fracture, though not definitely acute. There is no other acute fracture or dislocation. Joint space narrowing with hypertrophy and sclerosis are seen at the first metatarsal phalangeal joint. There is minor dorsal soft tissue swelling. IMPRESSION: DEGENERATIVE CHANGE AT THE FIRST TOE. PROBABLE OLD FRACTURE AT THE FIFTH TOE HOWEVER FOCAL CLINICAL CORRELATION IS RECOMMENDED. NO ADDITIONAL ACUTE FINDINGS. RIGHT HIP WITH AP PELVIS - 3 views COMPARISON: CT 09/16/2024 AP view of the pelvis as well as AP and frog-lateral views of the right hip were obtained. No acute fracture or dislocation is identified. The hip joint spaces are maintained. There is no significant arthritic disease. There is sclerosis at the SI joints. There is degenerative change at the lower imaged lumbar spine where L4 compression deformity is again noted. No soft tissue abnormalities are present. IMPRESSION: NO ACUTE BONY FINDINGS. Impression dictated by: Asiya Garcia M.D. 07/11/2025 2:06 PM Dictation Location: [place] [address] Electronically authenticated by: [id number] Y Date: 07/11/2025 14:06
--- NOTE | 2025-07-11 12:35 | CT_ITS ---
The [address] [address] Patient Name: ASHLEIGH GRIMALDO MRN: [id number] date: 1940 Sex: M Assigned Patient Location: ER Current Patient Location: ER Accession/Order Number: [id number] Exam Date: 07/11/2025 13:18 Report Date: 07/11/2025 14:01 At the request of: MALICK STEEL Procedure: CT head/brain wo con CT BRAIN WITHOUT CONTRAST: CLINICAL HISTORY: Fall, hit head, on ASA 325mg COMPARISON: 09/16/2024 TECHNIQUE: Contiguous axial unenhanced images were obtained through the brain. This CT exam was performed using one or more following dose reduction techniques: Automated exposure control, adjustment of the mA and/or kV according to patient size, or use of iterative reconstruction technique. FINDINGS: There is generalized atrophy. The ventricles are similar in size and position. Minor microvascular changes are noted. There are no additional areas of abnormal attenuation. There is no hemorrhage, mass effect or extra-axial collections. The calvarium is intact. The imaged paranasal sinuses and mastoid air cells are clear. There is carotid siphon and basilar artery plaque. CT/CT head/brain wo con IMPRESSION: ATROPHY AND MINOR MICROVASCULAR DISEASE. NO ACUTE INTRACRANIAL TRAUMA. Impression dictated by: Asiya Garcia M.D. 07/11/2025 2:01 PM Dictation Location: [place] [address] Electronically authenticated by: [id number] Y Date: 07/11/2025 14:01
[2025-07-11 12:45] LABS: Anion Gap 21.5; Blood Urea Nitrogen 39.0 mg/dL (7.0-18.0); Calcium 9.3 mg/dL (8.5-10.1); Carbon Dioxide 22.0 mmol/L (21.0-32.0); Chloride 98 mmol/L (98-107); Estimated GFR (African America >60 (>=60 mL/min/1.73m^2); Estimated GFR (Non-African Ame 57 (>=60 mL/min/1.73m^2); Glucose 103 mg/dL (74-106); Potassium 5.5 mmol/L (3.5-5.1); Sodium 136 mmol/L (136-145)
[2025-07-11 12:51] LABS: Red Blood Count 7.98 10^6/uL (4.70-6.10)
--- NOTE | 2025-07-11 12:53 | XR_ITS ---
The [address] [address] Patient Name: ASHLEIGH GRIMALDO MRN: [id number] date: 1940 Sex: M Assigned Patient Location: ER Current Patient Location: ER Accession/Order Number: [id number] Exam Date: 07/11/2025 13:25 Report Date: 07/11/2025 14:06 At the request of: MALICK STEEL Procedure: XR hip RT 2V w/ pelvis CLINICAL HISTORY: Patient fell last night and was found outside on the ground this morning. Right hip pain and left foot swelling. AP RECUMBENT CHEST 1313 hours COMPARISON: CT 09/16/2024 The heart is within normal limits. There is no vascular congestion. There is mild atelectasis and/or scarring. No focal consolidation is noted. There is no sizable effusion. There is question of a pleural reflection at the lower right lung and pneumothorax is not excluded within limits of this single view. The bony structures are osteopenic. There are degenerative changes shoulders, greater on the left. XR/XR chest 1V IMPRESSION: MILD ATELECTASIS OR SCARRING. EQUIVOCAL RIGHT-SIDED PNEUMOTHORAX. CLINICAL CORRELATION IS RECOMMENDED ALONG WITH FOLLOW-UP, WARRANTED. LEFT FOOT - 3 views COMPARISON: None AP, lateral and oblique views were obtained. There is deformity at the shaft of the proximal phalanx of the fifth toe that might represent fracture, though not definitely acute. There is no other acute fracture or dislocation. Joint space narrowing with hypertrophy and sclerosis are seen at the first metatarsal phalangeal joint. There is minor dorsal soft tissue swelling. IMPRESSION: DEGENERATIVE CHANGE AT THE FIRST TOE. PROBABLE OLD FRACTURE AT THE FIFTH TOE HOWEVER FOCAL CLINICAL CORRELATION IS RECOMMENDED. NO ADDITIONAL ACUTE FINDINGS. RIGHT HIP WITH AP PELVIS - 3 views COMPARISON: CT 09/16/2024 AP view of the pelvis as well as AP and frog-lateral views of the right hip were obtained. No acute fracture or dislocation is identified. The hip joint spaces are maintained. There is no significant arthritic disease. There is sclerosis at the SI joints. There is degenerative change at the lower imaged lumbar spine where L4 compression deformity is again noted. No soft tissue abnormalities are present. IMPRESSION: NO ACUTE BONY FINDINGS. Impression dictated by: Asiya Garcia M.D. 07/11/2025 2:06 PM Dictation Location: [place] [address] Electronically authenticated by: [id number] Y Date: 07/11/2025 14:06
[2025-07-11 12:56] LABS: Platelet Count 2532 10^3/uL (150-450); White Blood Count 65.8 10^3/uL (4.0-11.0)
[2025-07-11 13:02] LABS: Segmented Neut Absolute Manual 59.87 10^3/uL (1.4-6.5); Segmented Neutrophils % Manual 91.0 (43.0-75.0)
[2025-07-11 13:03] LABS: Basophils Abs Manual 0.00 10^3/uL (0.00-0.10); Basophils Percent Manual 0.0 % (0.2-2.0); Eosinophils Absolute Manual 0.00 10^3/uL (0.00-0.70); Eosinophils Percent Manual 0.0 % (0.9-7.0); Giant Platelets 1+; Lymphocytes Absolute Manual 0.65 10^3/uL (1.20-3.80); Lymphocytes Percent Manual 1.0 % (20.5-60.0); Monocytes Absolute Manual 5.26 10^3/uL (0.30-0.80); Monocytes Percent Manual 8.0 % (1.7-12.0)
[2025-07-11 13:04] LABS: Anisocytosis 2+
[2025-07-11 13:15] LABS: Creatine Kinase 284 U/L (39-308)
[2025-07-11] MEDS: 0.9 % SODIUM CHLORIDE 500 ML IV (13:45)
[2025-07-11] MEDS: LIDOCAINE 2% JELLY 10 ML UR (13:51)
[2025-07-11 13:58] LABS: Glucose Urine UA NEGATIVE (NEGATIVE)
--- NOTE | 2025-07-11 14:00 | CT_ITS ---
The [address] [address] Patient Name: ASHLEIGH GRIMALDO MRN: [id number] date: 1940 Sex: M Assigned Patient Location: ER Current Patient Location: ER Accession/Order Number: [id number] Exam Date: 07/11/2025 14:20 Report Date: 07/11/2025 14:34 At the request of: MALICK STEEL Procedure: CT hip RT wo con CT right hip WITHOUT CONTRAST WITH 3D RECONSTRUCTIONS: CLINICAL HISTORY: Right hip pain after fall. COMPARISON: Right hip series performed earlier today TECHNIQUE: Spiral axial unenhanced images were obtained through the right hip. Sagittal, coronal and 3D volume-rendered reconstructions were also reviewed. This CT exam was performed using one or more following dose reduction techniques: Automated exposure control, adjustment of the mA and/or kV according to patient size, or use of iterative reconstruction technique. FINDINGS: There appears be a nondisplaced fracture involving the right pubic ramus at the level of the pubic symphysis. Right inferior pubic ramus appears intact. Acetabulum appears intact. Mild degenerative changes involving the right hip without fracture. Soft tissues demonstrate no soft tissue swelling or hematoma. Musculature appears atrophic. Visualized intrapelvic contents demonstrates Almazan catheter is in place. The right obturator internus muscle demonstrates hypodensity possibly relating to tear given the fracture. CT/CT hip RT wo con IMPRESSION: NONDISPLACED FRACTURE INVOLVING THE RIGHT PUBIC RAMUS AT THE LEVEL OF THE PUBIC SYMPHYSIS. THERE APPEARS BE ASSOCIATED HYPODENSITY INVOLVING THE RIGHT OBTURATOR INTERNUS MUSCULATURE POSSIBLY RELATING TO TEAR. Impression dictated by: Pop Marte Jr., D.O. 07/11/2025 2:34 PM Dictation Location: [place] [address] Electronically authenticated by: [id number] Y Date: 07/11/2025 14:34
[2025-07-11 14:10] LABS: Cast Seen? NONE SEEN #/LPF (NONE SEEN); Crystals Seen? None Seen #/HPF (None Seen); Urine Culture Indicated YES-FRMC
--- NOTE | 2025-07-11 14:37 | XR_ITS ---
The [place] [id number] Patient Name: ASHLEIGH GRIMALDO MRN: [id number] date: 1940 Sex: M Assigned Patient Location: ER Current Patient Location: ER Accession/Order Number: [id number] Exam Date: 07/11/2025 14:42 Report Date: 07/11/2025 15:30 At the request of: MALICK STEEL Procedure: XR chest 1V Single view chest: CLINICAL HISTORY: PXT? Expiratory view to eval R lung COMPARISON: Chest performed earlier today FINDINGS: Heart appears normal in size. Soft tissue density projecting over the right lung apex. Mild interstitial changes. No consolidation pneumothorax pleural effusion or free air. XR/XR chest 1V IMPRESSION: NO RIGHT-SIDED PNEUMOTHORAX IS SEEN ON THIS STUDY. SOFT TISSUE DENSITY PROJECTING OVER THE RIGHT LUNG APEX. FINDING WAS NOT CLEARLY SEEN ON THE PRIOR STUDY AND MAY BE PROJECTIONAL. THIS CAN BE CONFIRMED BY CT. Impression dictated by: Pop Marte Jr., D.O. 07/11/2025 3:30 PM Dictation Location: [place] [address] Electronically authenticated by: [id number] Y Date: 07/11/2025 15:30
--- NOTE | 2025-07-11 16:01 | ECG_ITS ---
The [facility] Test Date: 2025-07-11 Pat Name: ASHLEIGH GRIMALDO Department: Room: [facility] Gender: Male [employer] Department Chair: : 1940 Requested By: 1030 Order Number: [id number] Reading MD: REDDY BELLO Measurements Intervals [place] Rate: 89 P: 90 NC: 138 QRS: 90 QRSD: 96 T: 79 QT: 388 QTc: 434 Interpretive Statements 1100 Sinus rhythm 9110 normal ECG Compared to ECG 07/11/2025 12:00:58 Right-axis deviation no longer present Electronically Signed On 07-11-2025 19:13:09 EDT by REDDY BELLO
[2025-07-11] MEDS: ASPIRIN 81 MG TABLET.DR PO (17:25)
[2025-07-11] MEDS: CEFAZOLIN SODIUM/DEXTROSE,ISO 1 GM/50 ML PREMIX IV (17:35)
[2025-07-12] VITALS (19 sets, daily range): BP systolic 150–167; BP diastolic 71–83; PULSE 65–93; TEMP 36.4–37.1; O2SAT 18–95
[2025-07-12] MEDS: PIPERACILLIN SODIUM/TAZOBACTAM 3.375 GM in 0.9 % SODIUM CHLORIDE 50 ML IV ×3 (01:56→17:24)
[2025-07-12 06:25] LABS: Hematocrit 53.1 % (42.0-54.0); Hemoglobin 14.8 g/dL (14.0-18.0); Mean Corpuscular HGB Conc 27.9 g/dL (29.9-35.2); Mean Corpuscular Hemoglobin 19.5 pg (25.9-34.0); Mean Corpuscular Volume 69.9 fL (80.0-94.0); Red Blood Count 7.60 10^6/uL (4.70-6.10)
[2025-07-12 06:33] LABS: Platelet Count 2139 10^3/uL (150-450); White Blood Count 38.7 10^3/uL (4.0-11.0)
--- NOTE | 2025-07-12 06:40 | CA_ITS ---
Patient Name: ASHLEIGH GRIMALDO MR#: [id number] : 1940 Exam Date: 07/12/2025 Ordering Doctor: MARTHA CASAS ECHOCARDIOGRAM REPORT PROCEDURE: CA ECHO DOPPLER COMPLETE INDICATIONS: A fib RVR COMPARISON: None. DESCRIPTION: COMPLETE ECHOCARDIOGRAM Real-time transthoracic echocardiography with 2D, M-mode, spectral and color flow Doppler performed. QUALITY: Technical quality was adequate. LEFT VENTRICLE: Normal chamber size. Mild concentric left ventricular hypertrophy. LV EF: Global left ventricular systolic function is normal. Calculated left ventricular ejection fraction is hyperdynamic at 65-70%. No significant wall motion abnormalities. DIASTOLIC: Normal diastolic function. ATRIAL SEPTUM: Inadequately seen. LEFT ATRIUM: Normal chamber size. RIGHT ATRIUM: Mild dilatation. RIGHT VENTRICLE: Normal chamber size. Normal right ventricular systolic function. TRICUSPID VALVE: Normal mobility and thickness. No stenosis with no regurgitation. Unable to calculate RVSP due to lack of measurable regurgitation. MITRAL VALVE: Normal mobility and thickness. No evidence of mitral valve stenosis. There is no mitral annular calcification. Trivial mitral regurgitation. AORTIC VALVE: Normal trileaflet appearance. Mildly calcified aortic valve. Normal leaflet mobility. No evidence of aortic valve stenosis. Trivial aortic regurgitation. AORTIC ROOT: Normal diameter and appearance. PULMONIC VALVE: Normal thickness and mobility. No stenosis. Trivial regurgitation. PERICARDIUM: No evidence of pericardial effusion. IVC: Normal size. No collapse on inspiration. CONCLUSION: 1. Global ventricular systolic function is hyperdynamic; visually estimated ejection fraction is 65 to 70% 2. Normal right ventricular size and systolic function 3. Mild left ventricular hypertrophy 4. Normal diastolic function 5. Mild right atrial dilatation 6. No significant valvular abnormalities Adult Echocardiography Procedure Report Left Ventricle LVEDD (3.7 - 5.6 cm): 3.67 cm LVESD (2.2 - 4.0 cm): 2.25 cm LVIVS thickness (0.6 - 1.2 cm): 1.34 cm LVPW thickness (0.5 - 1.0 cm): 1.19 cm e': 0.09 m/s E - e': 9.36 LVOT Max Gradient: 4.10 mm[Hg] LVOT Area (cm2): 1.01 m/s Peak Velocity (LVOT): 1.01 m/s Mean Velocity (LVOT): 0.69 m/s LVOT Diameter 1.85 cm Left Ventricular Ejection Fraction: 74.76 % Left Atrium LA Volume Index (2D A2C): 63.57 ml/m2 Left Atrium Systolic Dimension: 4.43 cm Mitral Valve MV E to A Ratio: 0.94 Mitral Valve A-Wave Peak Velocity: 0.92 m/s Mitral Valve E-Wave Peak Velocity: 0.87 m/s Right Ventricle RV Internal Diastolic Dimension: 3.72 cm Aorta AO Root Diam: 3.36 cm Ascending Ao Diam: 3.38 cm Aortic Valve AoV Area (Peak Raj): 1.99 cm2, 1.99 cm2 AoV Area (VTI): 1.95 cm2, 1.95 cm2 Peak Velocity(Antegrade Flow): 1.37 m/s Peak Gradient(Antegrade Flow): 7.54 mm[Hg] Mean Velocity(Antegrade Flow): 0.91 m/s Mean Gradient(Antegrade Flow): 3.87 mm[Hg] Velocity Time Integral: 32.16 cm Tricuspid Valve Pulmonic Valve Peak Velocity: 0.74 m/s Peak Gradient: 2.18 mm[Hg] Right Atrium Right Atrium Systolic Pressure: 75.39 ml, 75.39 ml Dictated by: Annia Guerin M.D. on 07/12/2025 at 16:39 Approved by: Annia Guerin M.D. on 07/12/2025 at 16:50
[2025-07-12 07:29] LABS: Alanine Aminotransferase 9 U/L (16-63); Albumin Globulin Ratio 0.8; Albumin Level 2.4 g/dL (3.4-5.0); Alkaline Phosphatase 113 U/L (46-116); Anion Gap 16.2; Aspartate Amino Transferase 26 U/L (15-37); Blood Urea Nitrogen 39.0 mg/dL (7.0-18.0); Calcium 8.3 mg/dL (8.5-10.1); Carbon Dioxide 25.2 mmol/L (21.0-32.0); Chloride 102 mmol/L (98-107); Creatine Kinase 49 U/L (39-308); Estimated GFR (African America >60 (>=60 mL/min/1.73m^2); Estimated GFR (Non-African Ame 52 (>=60 mL/min/1.73m^2); Globulin 2.9 g/dL; Glucose 70 mg/dL (74-106); Magnesium 2.0 mg/dL (1.8-2.4); Potassium 4.4 mmol/L (3.5-5.1); Sodium 139 mmol/L (136-145); Total Protein 5.3 g/dL (6.4-8.2)
[2025-07-12] MEDS: ACETAMINOPHEN 325 MG TABLET 650 MG PO ×2 (08:52→23:30)
[2025-07-12] MEDS: ASPIRIN 81 MG TABLET.DR PO (08:52)
[2025-07-12] MEDS: METOPROLOL TARTRATE 25 MG TABLET PO (08:52)
--- NOTE | 2025-07-12 09:05 | CM.NOTE ---
Rounds made with Dr. العراقي, discussed with pt reason for hospitalization, labs, and radiology findings. Plan of care discussed with pt, no discharge today. PT and OT will evaluate pt today for discharge planning.
--- NOTE | 2025-07-12 11:22 | SWNOTE1 ---
Important Message from Medicare reviewed and discussed with patient. Pt. verbalized understanding and signed the form. Original given to patient and copy placed in patient?s chart.
--- NOTE | 2025-07-12 11:22 | SWNOTE1 ---
EUN met with pt to discuss dc needs. Pt lives at home alone. He does sometimes use his cane to get around. Pt fell outside at home and laid there all night. His friend Giovanni came to check on him and called for help. EUN let pt know that at this time rehab at [facility] is being recommended. Pt mentioned going to live with his friends for awhile. SW let pt know that his last visit he mentioned doing that as well. SW let him know he would benefit from therapy and for his safety it would be beneficial to go skilled for a short time to get stronger. Pt was at [facility] for his last rehab stay. He voiced it was alright there. [place] like they did not do much therapy and voiced he did not like having a room mate because he did not sleep much. SW did let him know we can look at other facilities. Pt would like to stay in [place] and liked being on [address] so his friend from [facility] could come see him. If he has to go somewhere, pt would like [facility] again. EUN let pt know that SW will see if they have any beds open and if they do SW will send referral. Pt agreeable. SW also let him know if he is feeling and doing better we can talk about alternate discharge plans. At this time for his safety, rehab is recommended and pt is agreeable. EUN reached out to Moo at [facility], waiting to hear back.
--- NOTE | 2025-07-12 11:37 | SWNOTE1 ---
EUN received a message back from Lauren at [facility] and she requested SW fax referral over. Referral sent to [facility]. Referral included face sheet, ED note, H&P, provider notes, case management report, nursing notes, diagnostic imaging, med list, and OT notes. Pt also requested SW call his friend, Giovanni, and make sure someone is feeding his cat. SW to call.
--- NOTE | 2025-07-12 13:17 | PM.HP ---
HPI H&P: HPI History of Present Illness Chief complaint: HIP PAIN FALL, RT PUBIC FRACTURE, RHABDO, HYPOTHER Narrative: Mr. Aponte is an 84-year-old gentleman with a reported history of myeloproliferative disorder for which patient has declined treatment in the past as reported by ER physician. Patient fell outside his home and could not get up. He stayed overnight on the floor up until he got some help the next morning. He was brought to the emergency room and was found to be hypothermic. His temperature was 93. Stefan hugger was placed. His temperature improved up to normal. The patient was found to have elevated myoglobin suggestive of rhabdomyolysis. Patient was having pain in the right hip. Imaging showed pubic rami fracture. Patient denies any chest or abdominal pain. No nausea or vomiting. Patient also was found to have A-fib with RVR that converted back to sinus in the emergency room department. Patient states that he has been unsteady on his feet. He uses a cane at home. Opioid HPI Opioid Management Most Recent Pain and Opioid Data: Last Pain Scale 2 Today, 10:11 Last Pain Intensity 0 09/17/24, 10:03 Last Pain Assessment 07/11/25, 18:00 Last MAR Pain Assessment Today, 08:52 Last ORT Total Score 0 07/11/25, 17:12 Last ORT Risk Category Low Risk 07/11/25, 17:12 Review of Systems ROS Status of ROS 10 or more systems reviewed and unremarkable except as noted in history and below PFSH PFS Medical History (Updated 07/12/25 @ 13:23 by Pawel العراقي MD) History of fall ?Z91.81 - History of falling (ICD-10) Ribs, multiple fractures ?S22.49XA - Multiple fractures of ribs, unspecified side, initial encounter for closed fracture (ICD-10) Chronic myeloproliferative disorder ?D47.1 - Chronic myeloproliferative disease (ICD-10) Thyroid disease ?E07.9 - Disorder of thyroid, unspecified (ICD-10) Surgical History (Updated 07/11/25 @ 17:15 by Sharda Villatoro RN) H/O foot surgery ?Z98.890 - Other specified postprocedural states (ICD-10) Family History (Updated 07/11/25 @ 17:15 by Sharda Villatoro RN) Mother Family history of cancer Family history of hypertension Father Family history of hypertension Social History (Updated 07/11/25 @ 17:16 by Sharda Villatoro RN) Within the past year, how often did you have a drink containing alcohol: monthly or less Smoking status: Former smoker Non-prescribed substance use: denies use Highest level of school completed/degree received: Bachelor's degree Little interest or pleasure in doing things: not at all Feeling down, depressed, or hopeless: not at all Meds Home Medications and Allergies Home Medications ?Medication ?Instructions ?Recorded ?Confirmed ?Type acetaminophen 500 mg tablet 1,000 mg (2 x 500 mg) PO Q6H PRN 09/19/24 07/11/25 Rx Pain Scale 1-3 #0 tabs aspirin 325 mg tablet 325 mg PO DAILY #30 tabs 09/19/24 07/11/25 Rx Allergies Allergy/AdvReac Type Severity Reaction Status Date / Time No Known Drug Allergies Allergy Verified 07/11/25 12:09 Exam Narrative Exam Narrative: Patient is lying in bed. Awake and oriented. No distress. Cachectic and frail in appearance. Bitemporal muscle wasting. Upper and lower extremities muscle wasting and atrophy. Pale skin buccal mucosa. Neck is supple. Nontender. Chest is clear, heart is regular. Abdomen soft, no tenderness. Minimal tenderness in the right groin. Patient has swelling, erythema and tenderness involving the left ankle and foot. Constitutional Vital Signs, click to edit/add: Last Vital Signs Temp 97.6 F 07/12/25 11:12 Pulse 67 07/12/25 11:52 Resp 18 07/12/25 11:12 BP 155/79 H 07/12/25 11:12 Pulse Ox 95 07/12/25 11:12 O2 Del Method Room Air 07/12/25 11:12 Results Labs Labs: Short CBC 07/12/25 Range/Units 05:48 WBC 38.7 H* (4.0-11.0) 10^3/uL Hgb 14.8 (14.0-18.0) g/dL Hct 53.1 (42.0-54.0) % Plt Count 2139 H* (150-450) 10^3/uL BMP 07/12/25 07:01 Sodium 139 Potassium 4.4 Chloride 102 Carbon Dioxide 25.2 BUN 39.0 H Creatinine 1.32 H Glucose 70 L Calcium 8.3 L Cardiac Enzymes 07/11/25 07/12/25 Range/Units 12:20 07:01 Total Creatine Kinase 284 49 (39-308) U/L Liver Function 07/12/25 Range/Units 07:01 Total Bilirubin 0.9 (0.2-1.0) mg/dL AST 26 (15-37) U/L ALT 9 L (16-63) U/L Alkaline Phosphatase 113 (46-116) U/L Albumin 2.4 L (3.4-5.0) g/dL Urine 07/11/25 Range/Units 13:48 Urine Color Yellow (YELLOW) Urine Clarity Clear (CLEAR) Urine pH 5.5 (5.0-9.0) Ur Specific [place] >=1.030 A (1.005-1.025) Urine Protein 100 A (NEG/TRACE) mg/dL Urine Glucose (UA) Negative (NEGATIVE) mg/dL Assessment and Plan Assessment and Plan (1) Fracture of pubic ramus: Qualifiers: Encounter type: initial encounter Fracture type: closed Laterality: right Qualified Code(s): S32.591A - Other specified fracture of right pubis, initial encounter for closed fracture (2) Hypothermia: Qualifiers: Encounter type: initial encounter Qualified Code(s): T68.XXXA - Hypothermia, initial encounter (3) Rhabdomyolysis: Qualifiers: Encounter type: initial encounter Rhabdomyolysis type: traumatic Qualified Code(s): T79.6XXA - Traumatic ischemia of muscle, initial encounter (4) Cellulitis of foot: (5) Atrial fibrillation: (6) Cachexia: (7) Muscle wasting: (8) Moderate protein-calorie malnutrition: Plan Pubic rami fracture on the right side. Probable obturator musculature tear Nonoperative approach. Pain management. Request MRI of the right groin and hip to rule out occult fracture and examine the extent of his bone and/or soft tissue injury. Transient A-fib with RVR. Patient converted back to sinus rhythm [id number] score is 2?3 with hypertension Patient could benefit from anticoagulation for primary stroke prevention. Patient however is at risk having future falls, body injury and a bleed. We will discuss this further with the patient and let him make a decision. Meanwhile I would start patient on oral anticoagulation as long as his ambulation is supervised and assisted. Echocardiogram rule out cardiomyopathy or significant valvular disease I suspect the patient may have underlying CAD. No active chest pain. No evidence of ACS. Left foot and ankle cellulitis, erythema, induration and tenderness I patient on antibiotic. If no improvement within a day or 2 I would recommend MRI of the ankle and foot rule out abscess formation, osteomyelitis or septic joint. Cachexia, frailty, muscle wasting, moderate protein calorie malnutrition I would start patient on protein oral supplementation. Recommend patient to have further workup and or investigation rule out underlying malignancy. This could be done in the outpatient setting by PCP. Cognitive and functional impairment. Patient uses a cane at home. Patient is able to answer question and engage in simple conversation. CAT scan of the brain showed atrophy and microvascular disease I suspect that the patient has vascular dementia, less likely other neurodegenerative disorder Patient will benefit from primary stroke prevention with the use of antiplatelets Rhabdomyolysis secondary to patient laying on the floor for more than 12 hours Resolved with IV fluid infusion Hypothermia secondary to patient laying outside his house for more than 12 hours Corrected spontaneously with Bear hugger. Myeloproliferative disorder. Baseline white count is at 40,000. Baseline platelets is at 2500. I was informed that the patient had declined any treatment for it. I will start patient on aspirin. I would start patient on hydroxyurea. Recommend to follow-up with hematology postdischarge. Likely he will require bone marrow aspiration. Hypertension, poor control. Likely essential hypertension Start patient on small dose amlodipine Echocardiogram rule out valvular disease or cardiomyopathy. Suspected vitamin D deficiency and osteoporosis I requested vitamin D level which surprisingly came back above 50 Patient may benefit from having DEXA scan to rule out osteopenia or osteoporosis. This could be done in the outpatient setting to be arranged by PCP. The benefit however of bisphosphonate treatment at the age of 84 is of questionable value Chronic medical conditions not listed above, incidental findings seen on labs and imaging. These would need to be addressed. Could be addressed when time and condition are appropriate. Could be addressed in the outpatient setting by PCP collaboration with other needed outpatient providers. Urinary Catheter Management Urinary Catheter Management 2-way Urethral: Cath placed during this visit: yes Urethral indwelling: No Insertion date: 07/11/25 Insertion time: 14:00
--- NOTE | 2025-07-12 13:31 | PM.EN ---
Event Note Event Note: Goals of care discussion and advance care planning. Patient given permission to proceed with conversation. Conversation lasted for about 20 minutes. I explained in simple terms the process of CPR including chest compressions, shocks, intubation and life support. I explained in layman's terms the difference between aggressive versus comfort care approach. Patient understood conversation very well. He was able to understand options, alternatives, risk, benefit, life and situation. Patient repeatedly requested that we do everything we can to keep him alive including doing chest compression, shocks and placing him on life support. Certainly he would not [facility] with trach and PEG. At this time I would respect his wishes and keep his CODE STATUS as full code
--- NOTE | 2025-07-12 14:16 | SWNOTE1 ---
EUN faxed over H&P and PT to Lauren at [facility]. She is still reviewing referral and will get back to EUN shortly. EUN did call pt's friend Giovanni and updated him on discharge plans. He also confirmed he will be taking care of pt's cats and making sure they are fed.
[2025-07-12] MEDS: HYDROXYUREA 500 MG CAPSULE PO (14:28)
--- NOTE | 2025-07-12 15:19 | SWNOTE1 ---
SW received an email from Lauren at [facility] and they are able to accept pt when he is ready for discharge.
[2025-07-12] MEDS: ENSURE HP 237 ML LIQUID PO (21:12)
[2025-07-13] VITALS (17 sets, daily range): BP systolic 130–148; BP diastolic 62–78; PULSE 72–91; TEMP 36.5–36.9; O2SAT 90–94
[2025-07-13] MEDS: PIPERACILLIN SODIUM/TAZOBACTAM 3.375 GM in 0.9 % SODIUM CHLORIDE 50 ML IV ×3 (01:58→17:41)
[2025-07-13 05:36] LABS: Hematocrit 52.6 % (42.0-54.0); Hemoglobin 14.5 g/dL (14.0-18.0); Mean Corpuscular HGB Conc 27.6 g/dL (29.9-35.2); Mean Corpuscular Hemoglobin 19.2 pg (25.9-34.0); Mean Corpuscular Volume 69.6 fL (80.0-94.0); Red Blood Count 7.56 10^6/uL (4.70-6.10)
[2025-07-13 05:55] LABS: Anion Gap 16.5; Blood Urea Nitrogen 42.0 mg/dL (7.0-18.0); Calcium 8.5 mg/dL (8.5-10.1); Carbon Dioxide 22.2 mmol/L (21.0-32.0); Chloride 103 mmol/L (98-107); Estimated GFR (African America 51 (>=60 mL/min/1.73m^2); Estimated GFR (Non-African Ame 42 (>=60 mL/min/1.73m^2); Glucose 104 mg/dL (74-106); Potassium 3.7 mmol/L (3.5-5.1); Sodium 138 mmol/L (136-145)
[2025-07-13 06:18] LABS: Platelet Count 1685 10^3/uL (150-450); White Blood Count 41.9 10^3/uL (4.0-11.0)
[2025-07-13] MEDS: ACETAMINOPHEN 325 MG TABLET 650 MG PO ×2 (07:12→22:29)
--- NOTE | 2025-07-13 08:05 | CM.NOTE ---
Rounds made with Dr. العراقي. No discharge today, pt will discharge to [facility] when medically stable.
[2025-07-13] MEDS: APIXABAN 5 MG TABLET 2.5 MG PO ×2 (09:57→22:30)
[2025-07-13] MEDS: ENSURE HP 237 ML LIQUID PO ×2 (09:57→22:31)
[2025-07-13] MEDS: METOPROLOL TARTRATE 25 MG TABLET PO ×2 (09:58→22:30)
[2025-07-13] MEDS: ASPIRIN 81 MG TABLET.DR PO (09:58)
[2025-07-13] MEDS: HYDROXYUREA 500 MG CAPSULE PO (09:58)
--- NOTE | 2025-07-13 10:44 | PT.DAILY ---
Physical Therapy Daily Note PT Daily Note/Assess Start: 07/11/25 17:49 Freq: Status: Active Protocol: Document 07/13/25 10:39 PABLO (Rec: 07/13/25 10:44 PABLO [id number]) Physical Therapy Daily Note/Assessment Time In/Time Out Time In 10:10 Time Out 10:23 Pain In Pain N/A Pain Out Pain N/A Subjective Subjective Pt sitting in BS chair upon arrival. Agreeable to PT. Main complaint is stomach pain and bilat foot pain and swelling. Therapeutic Exercise Time Therapeutic Exercise 5 Minutes (minutes) Therapeutic Exercise 0 Units Therapeutic Exercise Treatment Therapeutic Exercise Pt instructed to complete bilat LE seated ex 10x ea Treatment while sitting in BS chair. Ex performed to improve functional mobility prior to gait and transfers. Therapeutic Activity Time Therapeutic Activity 10 Minutes (minutes) Therapeutic Activity 1 Units Therapeutic Activity Treatment Bed Mobility Ability Moderate Assist Chair Transfer Contact Guard Assist Ability Therapeutic Activity Sit>stand CGA with increased time to complete and edu Comments for proper hand placement. Static standing 1 min 10 sec before needing to sit. Sit>stand again CGA with increased time. Pt amb 5' to BS chair with RW, CGA with assist for IV pole. Short step length noticed - increased foot pain with amb. Sits EOB without outside support with min posterior lean. pt performs sit>supine transfer ModA to advance LEs and to adjust upper body for proper positioning. Feet elevated and propped on single pillow. Call light within reach and bed alarm activated upon completion. Total Physical Therapy Time Total Therapy 15 Minutes Total Physical 1 Therapy Units Summary Daily Note Summary Less assistance with transfers and gait today. Cont to require assistance for bed mobility. Pt does require increased time for most activities due to pain and weakness. Would benefit from SNF to regain strength and endurance to return to PLOF.
--- NOTE | 2025-07-13 10:53 | PM.PN ---
Progress Note: Subjective Subjective Interval history: Patient is feeling better. No chest pain or palpitation. No abdominal pain, nausea or vomiting Exam Narrative Exam Narrative: Patient is lying in bed. Awake and oriented. No distress. Cachectic and frail in appearance. Bitemporal muscle wasting. Upper and lower extremities muscle wasting and atrophy. Pale skin buccal mucosa. Neck is supple. Nontender. Chest is clear, heart is regular. Abdomen soft, no tenderness. No tenderness in the right groin. No pain or discomfort upon flexing, abducting, extending both hips. Significant and noticeable improvement and resolution of the swelling, erythema and tenderness involving the left ankle and foot. Constitutional Vital Signs, click to edit/add: Last Vital Signs Temp 98.2 F 07/13/25 07:45 Pulse 91 H 07/13/25 08:00 Resp 16 07/13/25 07:45 BP 138/62 07/13/25 07:45 Pulse Ox 92 L 07/13/25 07:45 O2 Del Method Room Air 07/13/25 07:45 Progress Note: Objective Labs Labs: Short CBC 07/13/25 Range/Units 05:20 WBC 41.9 H* (4.0-11.0) 10^3/uL Hgb 14.5 (14.0-18.0) g/dL Hct 52.6 (42.0-54.0) % Plt Count 1685 H* (150-450) 10^3/uL BMP 07/13/25 05:20 Sodium 138 Potassium 3.7 Chloride 103 Carbon Dioxide 22.2 BUN 42.0 H Creatinine 1.59 H Glucose 104 Calcium 8.5 Progress Note: A&P Assessment and Plan (1) Fracture of pubic ramus: Qualifiers: Encounter type: initial encounter Fracture type: closed Laterality: right Qualified Code(s): S32.591A - Other specified fracture of right pubis, initial encounter for closed fracture (2) Hypothermia: Qualifiers: Encounter type: initial encounter Qualified Code(s): T68.XXXA - Hypothermia, initial encounter (3) Rhabdomyolysis: Qualifiers: Encounter type: initial encounter Rhabdomyolysis type: traumatic Qualified Code(s): T79.6XXA - Traumatic ischemia of muscle, initial encounter (4) Cellulitis of foot: (5) Atrial fibrillation: (6) Cachexia: (7) Muscle wasting: (8) Moderate protein-calorie malnutrition: Plan Pubic rami fracture on the right side. Probable obturator musculature tear Patient does not have any tenderness there. Patient does not develop any pain upon passive hip flexion, extension, abduction. Nonoperative approach. Pain management. No strong indication for MRI given the lack of symptoms and negative CAT scan. Transient A-fib with RVR. Patient converted back to sinus rhythm [id number] score is 3 with hypertension Patient could benefit from anticoagulation for primary stroke prevention. Patient however is at risk having future falls, body injury and a bleed. Continue Eliquis. Dose was reduced to 2.5 mg twice a day due to age above 82 and weight less than 60 Echocardiogram rule out cardiomyopathy or significant valvular disease. Echocardiogram showed normal ejection fraction. No significant valvular disease. I suspect the patient may have underlying CAD. No active chest pain. No evidence of ACS. I would recommend to address anticoagulation risk and benefit with the patient after he completes his skilled therapy session based on his functional status and the risk of fall at that time. Ultimately the patient would need to make that decision to stay on blood thinner or not after he understands benefits/risk ratio comprehensively. Left foot and ankle cellulitis, erythema, induration and tenderness Continue Zosyn. Significant improvement and resolution of the last 24 hours. Cachexia, frailty, muscle wasting, moderate protein calorie malnutrition I would start patient on protein oral supplementation. Recommend patient to have further workup and or investigation rule out underlying malignancy. This could be done in the outpatient setting by PCP. Cognitive and functional impairment. Patient uses a cane at home. Patient is able to answer question and engage in simple conversation. CAT scan of the brain showed atrophy and microvascular disease I suspect that the patient has vascular dementia, less likely other neurodegenerative disorder Patient will benefit from primary stroke prevention with the use of antiplatelets Rhabdomyolysis secondary to patient laying on the floor for more than 12 hours Resolved with IV fluid infusion Hypothermia secondary to patient laying outside his house for more than 12 hours Corrected spontaneously with Bear hugger. Myeloproliferative disorder. Baseline white count is at 40,000. Baseline platelets is at 2500. I was informed that the patient had declined any treatment for it. Patient told me that he was seen by specialist before at [facility]. He was started on hydroxyurea. He elected not to continue to take it due to muscles cramps and diarrhea. Continue patient on aspirin and hydroxyurea. Recommend to follow-up with hematology postdischarge. Likely he will require bone marrow aspiration. Hypertension, much better controlled Likely essential hypertension Continue amlodipine Suspected vitamin D deficiency and osteoporosis I requested vitamin D level which surprisingly came back above 50 Patient may benefit from having DEXA scan to rule out osteopenia or osteoporosis. This could be done in the outpatient setting to be arranged by PCP. The benefit however of bisphosphonate treatment at the age of 84 is of questionable value Functional impairment secondary to advanced age, arthritis, muscle wasting and atrophy and left ankle/foot infection PT OT treatment. Patient likely will require short-term skilled care. Chronic medical conditions not listed above, incidental findings seen on labs and imaging. These would need to be addressed. Could be addressed when time and condition are appropriate. Could be addressed in the outpatient setting by PCP collaboration with other needed outpatient providers. Urinary Catheter Management Urinary Catheter Management 2-way Urethral: Cath placed during this visit: yes Urethral indwelling: No Insertion date: 07/11/25 Insertion time: 14:00
--- NOTE | 2025-07-13 13:18 | SWNOTE1 ---
EUN faxed updates to [facility], no disharge today.
--- NOTE | 2025-07-13 13:53 | SWNOTE1 ---
SW did update patient that his cats are being fed by Giovanni. Pt was on the phone with Giovanni when SW arrived. SW also let pt know that [facility] has accepted him and he can go there for rehab to get stronger once he is ready for discharge from hospital. Pt did voice he was hoping to go stay with friends, but also voiced that he was not feeling well and the diarrhea had made him weak. SW asked who his friends are, he stated some names and said they own the dairy farm down the street. SW did encourage pt to go to rehab for a short time so therapy can help get him stronger. Pt did ask if it was a private room? SW will find out for pt. He did voice he did not mind it at [facility], just hard to sleep at times due to room mates and all the noise. SW to find out if he will have a private room. Pt also stated he does not have much money and can't pay to be there. SW let pt know his Medicare will pay for days 1-20 100%. Pt does not have secondary listed and he does not think he has secondary, so days 21-100 would be covered 80% by Medicare and he would have co-pay. He stated last time he was at [facility] for 2 months and did not owe anything. SW to ask [facility] if they have a secondary payor listed for patient. No other questions at this time.
--- NOTE | 2025-07-13 14:02 | SWNOTE1 ---
EUN did email Lauren at [facility] and she voiced he will be in a semi-private room like last time. She advised all private rooms are occupied for isolation purposes at this time.
--- NOTE | 2025-07-13 14:10 | CM.NOTE ---
Updated Dr. العراقي that pt follows with Dr. Calloway and outpatient f/u has been scheduled.
--- NOTE | 2025-07-13 14:39 | SWNOTE1 ---
EUN also emailed Lauren to see if pt had a seconday insurance last time he was there. She emailed back and stated they tried to get pt to apply for Medicaid, but he did not want to. She voiced they will assist with discharge planning and assess the home situation. She stated that we are getting in to colder weather and he stayed with friend due to the cold weather. EUN to update patient.
--- NOTE | 2025-07-13 15:14 | SWNOTE1 ---
SW did let pt know he will have a semi-private room at [facility]. Pt voiced he is alright with this.
[2025-07-14] VITALS (20 sets, daily range): BP systolic 145–160; BP diastolic 70–88; PULSE 65–97; TEMP 36.4–37.5; O2SAT 93–95
[2025-07-14] MEDS: PIPERACILLIN SODIUM/TAZOBACTAM 3.375 GM in 0.9 % SODIUM CHLORIDE 50 ML IV ×3 (02:50→18:35)
[2025-07-14 05:51] LABS: Hematocrit 49.8 % (42.0-54.0); Hemoglobin 13.8 g/dL (14.0-18.0); Mean Corpuscular HGB Conc 27.7 g/dL (29.9-35.2); Mean Corpuscular Hemoglobin 19.4 pg (25.9-34.0); Mean Corpuscular Volume 70.0 fL (80.0-94.0); Red Blood Count 7.11 10^6/uL (4.70-6.10)
[2025-07-14 06:10] LABS: Alanine Aminotransferase 7 U/L (16-63); Albumin Globulin Ratio 0.6; Albumin Level 2.0 g/dL (3.4-5.0); Alkaline Phosphatase 109 U/L (46-116); Anion Gap 12.3; Aspartate Amino Transferase 20 U/L (15-37); Blood Urea Nitrogen 43.0 mg/dL (7.0-18.0); Calcium 8.4 mg/dL (8.5-10.1); Carbon Dioxide 24.9 mmol/L (21.0-32.0); Chloride 105 mmol/L (98-107); Estimated GFR (African America 55 (>=60 mL/min/1.73m^2); Estimated GFR (Non-African Ame 46 (>=60 mL/min/1.73m^2); Globulin 3.2 g/dL; Glucose 87 mg/dL (74-106); Potassium 4.2 mmol/L (3.5-5.1); Sodium 138 mmol/L (136-145); Total Protein 5.2 g/dL (6.4-8.2)
[2025-07-14 06:16] LABS: Platelet Count 1092 10^3/uL (150-450); White Blood Count 31.0 10^3/uL (4.0-11.0)
--- NOTE | 2025-07-14 08:10 | CM.NOTE ---
Rounds made with Dr. العراقي, discussed plan of care with pt. Pt will discharge to [facility] when medically stable.
--- NOTE | 2025-07-14 08:59 | MR_ITS ---
[address] [address] Patient Name: ASHLEIGH GRIMALDO MRN: [id number] date: 1940 Sex: M Assigned Patient Location: [place] Current Patient Location: [place] Accession/Order Number: [id number] Exam Date: 07/14/2025 11:00 Report Date: 07/14/2025 14:44 At the request of: MARTHA CASAS MD Procedure: MR foot LT wo con MRI of the left ankle without contrast Prior plain film left foot 07/11/2025. HISTORY: Acute left ankle foot pain, swelling and redness. Cellulitis. Rule out abscess. Rule out osteomyelitis. No bone marrow edema. No linear fracture. No acute cortical destruction. No ligamentous abnormality. No tendinopathy. No subcutaneous soft tissue edema. No discrete fluid collection. Joint effusion. Mild skin thickening. MR/MR foot LT wo con IMPRESSION: Findings consistent with cellulitis. No abscess. No osteomyelitis. MRI of the left foot without contrast No bone marrow edema. No linear fracture. No acute cortical destruction. Adequate alignment. Benign-appearing cyst the base of the fourth metatarsal. Extensive first metatarsophalangeal degeneration. Diffuse soft tissue edema with skin thickening consistent with cellulitis. No fluid collection to suggest abscess. No muscular, ligamentous or tendinous abnormality. IMPRESSION: Findings consistent with cellulitis. No soft tissue abscess. No acute osteomyelitis. Impression dictated by: Roscoe Cheney M.D. 07/14/2025 2:44 PM Dictation Location: [place] [address] Electronically authenticated by: [id number] Y Date: 07/14/2025 14:44
--- NOTE | 2025-07-14 08:59 | MR_ITS ---
[address] [address] Patient Name: ASHLEIGH GRIMALDO MRN: [id number] date: 1940 Sex: M Assigned Patient Location: MS Current Patient Location: [place] Accession/Order Number: [id number] Exam Date: 07/14/2025 11:00 Report Date: 07/14/2025 14:44 At the request of: MARTHA CASAS MD Procedure: MR foot LT wo con MRI of the left ankle without contrast Prior plain film left foot 07/11/2025. HISTORY: Acute left ankle foot pain, swelling and redness. Cellulitis. Rule out abscess. Rule out osteomyelitis. No bone marrow edema. No linear fracture. No acute cortical destruction. No ligamentous abnormality. No tendinopathy. No subcutaneous soft tissue edema. No discrete fluid collection. Joint effusion. Mild skin thickening. MR/MR ankle LT wo con IMPRESSION: Findings consistent with cellulitis. No abscess. No osteomyelitis. MRI of the left foot without contrast No bone marrow edema. No linear fracture. No acute cortical destruction. Adequate alignment. Benign-appearing cyst the base of the fourth metatarsal. Extensive first metatarsophalangeal degeneration. Diffuse soft tissue edema with skin thickening consistent with cellulitis. No fluid collection to suggest abscess. No muscular, ligamentous or tendinous abnormality. IMPRESSION: Findings consistent with cellulitis. No soft tissue abscess. No acute osteomyelitis. Impression dictated by: Roscoe Cheney M.D. 07/14/2025 2:44 PM Dictation Location: [place] [address] Electronically authenticated by: [id number] Y Date: 07/14/2025 14:44
[2025-07-14] MEDS: HYDROXYUREA 500 MG CAPSULE PO (09:32)
[2025-07-14] MEDS: ASPIRIN 81 MG TABLET.DR PO (09:33)
[2025-07-14] MEDS: APIXABAN 5 MG TABLET 2.5 MG PO ×2 (09:34→21:53)
[2025-07-14] MEDS: METOPROLOL TARTRATE 25 MG TABLET PO ×2 (09:35→21:52)
[2025-07-14] MEDS: ENSURE HP 237 ML LIQUID PO ×2 (09:45→21:53)
--- NOTE | 2025-07-14 09:49 | REH.PTDLY ---
Physical Therapy Daily Note PT Daily Note/Assess Start: 07/11/25 17:49 Freq: Status: Active Protocol: Document 07/14/25 09:42 JATINDER (Rec: 07/14/25 09:49 [id number] Physical Therapy Daily Note/Assessment Time In 08:21 Time Out 08:50 Subjective Pt sitting up in chair upon arrival. Reports Que feet pain rating as 5/10 in both. L foot still swollen. Pt states ribs and pelvis are not painful compared to feet . Nursing states it was a heavy Max to get pt from bed to chair. Therapeutic Exercise 8 Minutes (minutes) Therapeutic Exercise 1 Units Therapeutic Exercise Instructed in Que LE exercises 10x ea with cues and Treatment demo given to pt. Discomfort in feet with AP. Reports other exercises are more tolerable, pt slow to perform. Therapeutic Activity 17 Minutes (minutes) Therapeutic Activity 1 Units Therapeutic Activity Pt hesitant to want to stand. Required encouragement. Comments Sit to stand transfers with cues for positioning for ease of transfer. Pt requires Mod A to stand upright, cues for pregait weight shifting s-s. Pt took 2 steps forward and retro prior to needing to sit. Pt performs this sequence then again. Pt needs to use restroom, commode brought out. Pt asks if it can come any closer. With verbal cues pt is able to side step 5x and take 2 retro steps to get to commode and then back to chair with Min A for safety. Pt stands at commode for 2 mins x2 for pericare and to don new brief. Total Therapy 25 Minutes Total Physical 2 Therapy Units Daily Note Summary Pt still requires Mod A for sit to stand transfers. Pt is able to transfer to and from commode today with Min A taking lateral/retro steps. Pt takes very small steps forward when asked and complains of pain. Pt will need SNF stay to improve strength and mobility as he is unable to care for himself at this time.
--- NOTE | 2025-07-14 11:07 | PM.PN ---
Progress Note: Subjective Subjective Interval history: Patient is feeling better. No chest pain or palpitation. No abdominal pain, nausea or vomiting Patient was able to take few steps without any pain or discomfort in the right groin. Persistent pain and discomfort in the left ankle. Exam Narrative Exam Narrative: Patient is lying in bed. Awake and oriented. No distress. Cachectic and frail in appearance. Bitemporal muscle wasting. Upper and lower extremities muscle wasting and atrophy. Pale skin buccal mucosa. Neck is supple. Nontender. Chest is clear, heart is regular. Abdomen soft, no tenderness. No tenderness in the right groin. No pain or discomfort upon flexing, abducting, extending both hips. Significant and noticeable improvement and resolution of the swelling, erythema and tenderness involving the left ankle and foot. Constitutional Vital Signs, click to edit/add: Last Vital Signs Temp 98.2 F 07/14/25 07:51 Pulse 97 H 07/14/25 09:57 Resp 18 07/14/25 07:51 BP 158/76 H 07/14/25 07:51 Pulse Ox 93 L 07/14/25 07:51 O2 Del Method Room Air 07/14/25 07:51 Progress Note: Objective Labs Labs: Short CBC 07/14/25 Range/Units 05:26 WBC 31.0 H* (4.0-11.0) 10^3/uL Hgb 13.8 L (14.0-18.0) g/dL Hct 49.8 (42.0-54.0) % Plt Count 1092 H* (150-450) 10^3/uL BMP 07/14/25 05:26 Sodium 138 Potassium 4.2 Chloride 105 Carbon Dioxide 24.9 BUN 43.0 H Creatinine 1.48 H Glucose 87 Calcium 8.4 L Liver Function 07/14/25 Range/Units 05:26 Total Bilirubin 0.7 (0.2-1.0) mg/dL AST 20 (15-37) U/L ALT 7 L (16-63) U/L Alkaline Phosphatase 109 (46-116) U/L Albumin 2.0 L (3.4-5.0) g/dL Progress Note: A&P Assessment and Plan (1) Fracture of pubic ramus: Qualifiers: Encounter type: initial encounter Fracture type: closed Laterality: right Qualified Code(s): S32.591A - Other specified fracture of right pubis, initial encounter for closed fracture (2) Hypothermia: Qualifiers: Encounter type: initial encounter Qualified Code(s): T68.XXXA - Hypothermia, initial encounter (3) Rhabdomyolysis: Qualifiers: Encounter type: initial encounter Rhabdomyolysis type: traumatic Qualified Code(s): T79.6XXA - Traumatic ischemia of muscle, initial encounter (4) Cellulitis of foot: (5) Atrial fibrillation: (6) Cachexia: (7) Muscle wasting: (8) Moderate protein-calorie malnutrition: Plan Pubic rami fracture on the right side. Probable obturator musculature tear Patient does not have any tenderness there. Patient does not develop any pain upon passive hip flexion, extension, abduction. Nonoperative approach. Pain management. No strong indication for MRI given the lack of symptoms and negative CAT scan for any hip fracture. Transient A-fib with RVR. Patient converted back to sinus rhythm [id number] score is 3 with hypertension Patient could benefit from anticoagulation for primary stroke prevention. Patient however is at risk having future falls, body injury and a bleed. Continue Eliquis. Dose was reduced to 2.5 mg twice a day due to age above 82 and weight less than 60 Echocardiogram rule out cardiomyopathy or significant valvular disease. Echocardiogram showed normal ejection fraction. No significant valvular disease. I suspect the patient may have underlying CAD. No active chest pain. No evidence of ACS. I would recommend to address anticoagulation risk and benefit with the patient after he completes his skilled therapy session based on his functional status and the risk of fall at that time. Ultimately the patient would need to make that decision to stay on blood thinner or not after he understands benefits/risk ratio comprehensively. Left foot and ankle cellulitis, erythema, induration and tenderness Continue Zosyn. No improvement since 07/13. Requested MRI rule out abscess or osteomyelitis. Cachexia, frailty, muscle wasting, moderate protein calorie malnutrition I would start patient on protein oral supplementation. Recommend patient to have further workup and or investigation rule out underlying malignancy. This could be done in the outpatient setting by PCP. Cognitive and functional impairment. Patient uses a cane at home. Patient is able to answer question and engage in simple conversation. CAT scan of the brain showed atrophy and microvascular disease I suspect that the patient has vascular dementia, less likely other neurodegenerative disorder Patient will benefit from primary stroke prevention with the use of antiplatelets Rhabdomyolysis secondary to patient laying on the floor for more than 12 hours Resolved with IV fluid infusion Hypothermia secondary to patient laying outside his house for more than 12 hours Corrected spontaneously with Bear hugger. Myeloproliferative disorder. Baseline white count is at 40,000. Baseline platelets is at 2500. It appears that the patient was seen by nuclear powerplant mechanic helper Dr. Jasso and Dr. Ennis It appears that he was diagnosed having polycythemia vera. It appears that patient was started on hydroxyurea but then patient stopped it on his own due to GI symptoms. Improvement of his white count and the platelets over the last 48 hours after the reinitiation of hydroxyurea. Patient is to follow-up with hematology postdischarge. Hypertension, much better controlled Likely essential hypertension Continue amlodipine Suspected vitamin D deficiency and osteoporosis I requested vitamin D level which surprisingly came back above 50 Patient may benefit from having DEXA scan to rule out osteopenia or osteoporosis. This could be done in the outpatient setting to be arranged by PCP. The benefit however of bisphosphonate treatment at the age of 84 is of questionable value Functional impairment secondary to advanced age, arthritis, muscle wasting and atrophy and left ankle/foot infection PT OT treatment. Patient likely will require short-term skilled care. Chronic medical conditions not listed above, incidental findings seen on labs and imaging. These would need to be addressed. Could be addressed when time and condition are appropriate. Could be addressed in the outpatient setting by PCP collaboration with other needed outpatient providers. Urinary Catheter Management Urinary Catheter Management 2-way Urethral: Cath placed during this visit: yes Urethral indwelling: No Insertion date: 07/11/25 Insertion time: 14:00
--- NOTE | 2025-07-14 13:05 | SWNOTE1 ---
Pt is not discharging today, SW updated Lauren at [facility]. SW faxed progress note, PT note, labs, vitals, and nursing notes.
--- NOTE | 2025-07-14 13:55 | CM.NOTE ---
2nd Important Message From Medicare discussed with pt, pt denies any questions or concerns.
[2025-07-14] MEDS: TORSEMIDE 20 MG TABLET 10 MG PO ×2 (14:52→21:53)
[2025-07-14] MEDS: ACETAMINOPHEN 325 MG TABLET 650 MG PO (21:52)
[2025-07-15] VITALS (13 sets, daily range): BP systolic 138–170; BP diastolic 44–92; PULSE 71–85; TEMP 36.5–37.1; O2SAT 92–94
[2025-07-15] MEDS: PIPERACILLIN SODIUM/TAZOBACTAM 3.375 GM in 0.9 % SODIUM CHLORIDE 50 ML IV ×2 (01:43→09:35)
[2025-07-15] MEDS: ACETAMINOPHEN 325 MG TABLET 650 MG PO ×2 (05:31→11:38)
--- NOTE | 2025-07-15 08:05 | CM.NOTE ---
Rounds made with Dr. العراقي, discussed plan of care with pt and possible discharge to skilled facility. Dr. العراقي looking at need for possible exterminator IV antibiotics and will update pt and CM on plan of care.
[2025-07-15] MEDS: ASPIRIN 81 MG TABLET.DR PO (09:34)
[2025-07-15] MEDS: ENSURE HP 237 ML LIQUID PO (09:34)
[2025-07-15] MEDS: APIXABAN 5 MG TABLET 2.5 MG PO (09:34)
[2025-07-15] MEDS: METOPROLOL TARTRATE 25 MG TABLET PO (09:35)
[2025-07-15] MEDS: HYDROXYUREA 500 MG CAPSULE PO (09:35)
[2025-07-15] MEDS: 0.9 % SODIUM CHLORIDE 250 ML 10 ML IV (09:39)
--- NOTE | 2025-07-15 10:00 | CM.NOTE ---
Completed CRF for [facility] facility, pt will discharge today on P.O antibiotics. Dr. العراقي will complete discharge.
--- NOTE | 2025-07-15 10:06 | P.DS_ITS ---
DS: Providers Provider Date of admission: 07/11/25 16:50 Primary care physician: SHARI MALIK Consults: 07/11/25 Consult to Dietitian Routine Reason for consultation: Weight loss 07/11/25 16:45 Occupational Therapy Eval and Treat Routine Reason for consultation: Weakness Physical Therapy Eval and Treat Routine Reason for consultation: Weakness DS: Diagnosis Discharge Diagnosis (1) Fracture of pubic ramus: Qualifiers: Encounter type: initial encounter Fracture type: closed Laterality: right Qualified Code(s): S32.591A - Other specified fracture of right pubis, initial encounter for closed fracture (2) Hypothermia: Qualifiers: Encounter type: initial encounter Qualified Code(s): T68.XXXA - Hypothermia, initial encounter (3) Rhabdomyolysis: Qualifiers: Encounter type: initial encounter Rhabdomyolysis type: traumatic Qualified Code(s): T79.6XXA - Traumatic ischemia of muscle, initial encounter (4) Cellulitis of foot: (5) Atrial fibrillation: (6) Cachexia: (7) Muscle wasting: (8) Moderate protein-calorie malnutrition: Plan As listed above, below and others that are not listed DS: Summary Hospital Course Hospital Course: Mr. Bo is an 84-year-old male who was brought to the emergency room after he was found outside his home on the ground, unable to stand up and ambulate after he fell down and stayed on the ground outside for an extended period of time. Pubic rami fracture on the right side. Probable obturator musculature tear Patient does not have any tenderness there. Patient does not develop any pain upon passive hip flexion, extension, abduction. Nonoperative approach. Pain management. No strong indication for MRI given the lack of symptoms and negative CAT scan for any hip fracture. CT is negative for hip fracture. Transient A-fib with RVR. Patient converted back to sinus rhythm [id number] score is 3 with hypertension Patient could benefit from anticoagulation for primary stroke prevention. Patient however is at risk having future falls, body injury and a bleed. Continue Eliquis. Dose was reduced to 2.5 mg twice a day due to age above 80 and weight less than 60 Echocardiogram rule out cardiomyopathy or significant valvular disease. Echocardiogram showed normal ejection fraction. No significant valvular disease. I suspect the patient may have underlying CAD. No active chest pain. No evidence of ACS. I would recommend to address anticoagulation risk and benefit with the patient after he completes his skilled therapy session based on his functional status and the risk of fall at that time. Ultimately the patient would need to make that decision to stay on blood thinner or not after he understands benefits/risk ratio comprehensively. Left foot and ankle cellulitis, erythema, induration and tenderness Patient had been on Zosyn with marginal improvement. I suspect that patient may have inflammatory joint. He has a history of gout. MRI showed soft tissue swelling. No osteomyelitis, no abscess formation. At this time I would recommend extended course of oral antibiotic at the nursing facility. I would also recommend short course of prednisone and colchicine for 5 to 7 days to see if that would help. Cachexia, frailty, muscle wasting, moderate protein calorie malnutrition I would start patient on protein oral supplementation. Recommend patient to have further workup and or investigation rule out underlying malignancy. This could be done in the outpatient setting by PCP. Cognitive and functional impairment. Patient uses a cane at home. Patient is able to answer question and engage in simple conversation. CAT scan of the brain showed atrophy and microvascular disease I suspect that the patient has vascular dementia, less likely other neurodegenerative disorder Patient will benefit from primary stroke prevention with the use of antiplatelets Rhabdomyolysis secondary to patient laying on the floor for more than 12 hours Resolved with IV fluid infusion Hypothermia secondary to patient laying outside his house for more than 12 hours Corrected spontaneously with Bear hugger. Myeloproliferative disorder. Baseline white count is at 40,000. Baseline platelets is at 2500. It appears that the patient was seen by [facility] [employer] Dr. Jasso and Dr. Calloway It appears that he was diagnosed having polycythemia vera. It appears that patient was started on hydroxyurea but then patient stopped it on his own due to GI symptoms. Improvement of his white count and the platelets over the last 48 hours after the reinitiation of hydroxyurea. Patient is to follow-up with hematology postdischarge. 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 I will discharge patient home on gentle diuresis to keep him in euvolemic state Suspected vitamin D deficiency and osteoporosis I requested vitamin D level which surprisingly came back above 50 Patient may benefit from having DEXA scan to rule out osteopenia or osteoporosis. This could be done in the outpatient setting to be arranged by PCP. The benefit however of bisphosphonate treatment at the age of 84 is of questionable value Functional impairment secondary to advanced age, arthritis, muscle wasting and atrophy and left ankle/foot infection PT OT treatment. Patient likely will require short-term skilled care. Chronic medical conditions not listed above, incidental findings seen on labs and imaging. These would need to be addressed. Could be addressed when time and condition are appropriate. Could be addressed in the outpatient setting by PCP collaboration with other needed outpatient providers. CODE STATUS Patient elected to be full code however given his advanced age as well as his moderate functional and mild cognitive decline as well as his cachexia, frailty and failure to thrive, I would recommend comfort care approach with this gentleman. I would recommend to continue this conversation at the nursing facility. Hopefully patient will agree to focus on comfort rather than aggressive medical care that would not improve his quality living. Patient has multiple complex medical issues as listed above and others that are not listed. All appear to be stable. I do not have any clear or strong clinical justification to extend inpatient hospitalization. Patient however will require close and frequent monitoring as well as additional work-up, investigation and therapeutic intervention that could take place from this point on post discharge. That is to prevent relapse, decompensation, rehospitalization and other medical implications. I instructed patient to ask her primary care doctor to obtain [facility] record entirely to address abnormalities seen on labs and imaging that I have and have not addressed during this hospitalization, follow-up on pending blood work, imaging and pathology is if available and to follow-up on needed medical care in the outpatient setting. Time Spent with Patient Time attestation: Total time spent providing and/or coordinating discharge services: Exam Narrative Exam Narrative: Patient is lying in bed. Awake and oriented. No distress. Cachectic and frail in appearance. Bitemporal muscle wasting. Upper and lower extremities muscle wasting and atrophy. Pale skin buccal mucosa. Neck is supple. Nontender. Chest is clear, heart is regular. Abdomen soft, no tenderness. No tenderness in the right groin. No pain or discomfort upon flexing, abducting, extending both hips. Good improvement of erythema, induration and tenderness since admission however marginal improvement over the last 48 hours +1 edema in both legs. Constitutional Vital Signs, click to edit/add: Last Vital Signs Temp 97.9 F 07/15/25 07:43 Pulse 85 07/15/25 08:00 Resp 18 07/15/25 07:43 BP 157/76 H 07/15/25 07:43 Pulse Ox 94 L 07/15/25 07:43 O2 Del Method Room Air 07/15/25 07:43 DS: Data Data Completed and Pending Labs on day of discharge: Preliminary micro results at discharge 07/11/25 12:40 Blood Culture Result 2 - Preliminary Blood - Right Forearm NO GROWTH AT 36-48 HOURS. FINAL TO FOLLOW. 07/11/25 12:20 Blood Culture Result 1 - Preliminary Blood - Right Antecubital NO GROWTH AT 36-48 HOURS. FINAL TO FOLLOW. Discharge Plan Discharge Disposition: Xfer SNF Condition: Fair Discharge Medications: New hydroxyurea 500 mg Capsule 500 mg PO QD Qty: 0 0RF acetaminophen [Tylenol] 325 mg Tablet 650 mg PO Q6H PRN (Reason: Mild Pain) Qty: 0 0RF torsemide 20 mg Tablet 20 mg PO QD Qty: 30 0RF aspirin 81 mg Tablet,Delayed Release (Dr/Ec) 81 mg PO QD Qty: 0 0RF Ensure Active Protein-Muscle Liquid 1 ea PO BID Qty: 0 0RF metoprolol tartrate 25 mg Tablet 25 mg PO BID Qty: 0 0RF Eliquis 5 mg Tablet 2.5 mg PO BID Qty: 60 0RF doxycycline hyclate 100 mg tablet 100 mg PO BID 10 Days Qty: 20 0RF Probiotic 3 billion cell capsule 3,000 mmu cells PO DAILY Qty: 20 0RF Rx Instructions: administer with a meal colchicine 0.6 mg tablet 0.6 mg PO DAILY Qty: 7 0RF prednisone 20 mg tablet 20 mg PO DAILY 5 Days Qty: 5 0RF pantoprazole [Protonix] 40 mg tablet,delayed release (DR/EC) 40 mg PO DAILY Qty: 30 0RF Discontinued acetaminophen 500 mg Tablet 1,000 mg PO Q6H PRN (Reason: Pain Scale 1-3) Qty: 0 0RF aspirin 325 mg tablet 325 mg PO DAILY Qty: 30 0RF Print Language: Tamazight Activity Restrictions/Additional Instructions: I may not have addressed or treated all of your medical illnesses or the abnormal blood work or imaging studies during this hospitalization. Please ask your primary care provider to [facility] entirely to follow up on all of the abnormal physical, laboratory, and imaging findings that I have not addressed. Please return back to the emergency room or seek medical attention if your symptoms worsen or return. For group home providers: Fall risk Recommend CBC and BMP weekly to monitor his white count, platelets, electrolytes and kidney function. Patient has myeloproliferative disorder. His white count is ranging between 30- 45,000. His baseline platelets is ranging between 1100 and 2000 Please make sure that patient follows up with [facility] [employer] Dr. Calloway. At the end of his skilled days and prior to discharge home, please address the need to continue or discontinue Eliquis based on patient's ambulation status at that time and his risk of falls and body injury. Please discuss benefit and risk of Eliquis this with the patient and let him make the final decision. Patient is currently full code however given his myeloproliferative disorder, cachexia, frailty, cognitive and functional decline I would recommend him to be comfort care. Please continue to have conversation with him regarding goals of care and CODE STATUS. Hopefully he will agree to focus on comfort rather than aggressive medical care. [facility] does not mean that your medical care ends here and now. You may still need additional monitoring, work up, investigation, and treatment plan to be handled from this point on by out patient providers including your primary care provider and specialists. For any medication question, please contact your retail pharmacist or your primary care provider. Thank you. Machine Shop Supervisor/Interlocking And Signal Mechanic Instructions: Dr. Calloway follow up appointment 07/19 1:00 Discharge to [facility] Forms: Portal Instructions
[2025-07-15] MEDS: DEXAMETHASONE SOD PHOS 10 MG/ML VIAL IV (10:13)
[2025-07-15] MEDS: FUROSEMIDE 40 MG/4 ML VIAL IVP (10:13)
--- NOTE | 2025-07-15 11:25 | SWNOTE1 ---
EUN did check with nurse and pt is able to transport by wheelchair. Pt is being discharged to [facility] skilled. EUN called and set up trips transportation. They will be here between 4:15-4:45 to take pt to [facility]. EUN has faxed dc med rec and dc summary to Kimani at [facility]. EUN completed [facility] 7000 online. EUN took packet to the floor. EUN did let nurse, pt, and [place] time of discharge. SW to call pt's friend Giovanni as well.
--- NOTE | 2025-07-15 11:31 | SWNOTE1 ---
EUN did call pt's friend Giovanni and updated him that pt is discharging to [facility] today for rehab. EUN did let Giovanni know that did voice he is worried about staying there forever, but SW encouraged pt that he just needs to get stronger before he returns home. Giovanni voiced he will stop in tomorrow to see him at [facility].
[2025-07-15] MEDS: DOXYCYCLINE HYCLATE 100 MG in 0.9 % SODIUM CHLORIDE 100 ML IV (14:43)
--- NOTE | 2025-07-15 17:19 | PC.NURSE ---
report given to Elizabeth at [facility], all questions answered
--- NOTE | 2025-07-19 13:38 | SWNOTE1 ---
SW spoke to case management and pt did not come to follow up apt with Dr. Calloway in Oncology. Dr. العراقي would like for us to call facility to see why pt did not come. EUN called and spoke to the pt's nurse at [facility]. She is going to have there schedule call SW back as there was an appointment that pt decided he did not want to go to and they have to see what appointment it is.
--- NOTE | 2025-07-19 15:40 | CM.NOTE ---
Called received from [facility], state that they were unaware of appointment until pt's neighbor called. CM explained that the appointment was written on [facility], states pt refused appointment. Pt did not want to come back to hospital, explained appointment was for oncology. Nurse will relay information to Nurse Practitioner or physician that will see pt tomorrow and attempt to reschedule appointment if pt in agreement after explaining reason for appointment.
== END 2025-07-15 16:54 | DRG 964 ==
LOC: ER 16:43 → MS 17:00
PROVIDERS: Physician Assistant; Admitting Provider Internal Medicine; Emergency Provider Emergency Medicine; PCP Nurse Practitioner Family; Visit Provider Internal Medicine
DX: S32.591A Other specified fracture of right pubis, initial encounter for closed fracture (principal); D47.1 Chronic myeloproliferative disease; T79.6XXA Traumatic ischemia of muscle, initial encounter; L03.116 Cellulitis of left lower limb; R64 Cachexia; E44.0 Moderate protein-calorie malnutrition; Z68.1 Body mass index [BMI] 19.9 or less, adult; W01.0XXA Fall on same level from slipping, tripping and stumbling without subsequent striking against object, initial encounter; T68.XXXA Hypothermia, initial encounter; Z79.82 Long term (current) use of aspirin; E07.9 Disorder of thyroid, unspecified; Z87.891 Personal history of nicotine dependence; I48.91 Unspecified atrial fibrillation; Z91.81 History of falling; R26.81 Unsteadiness on feet; S01.81XA Laceration without foreign body of other part of head, initial encounter; R54 Age-related physical debility; S76.011A Strain of muscle, fascia and tendon of right hip, initial encounter; I25.10 Atherosclerotic heart disease of native coronary artery without angina pectoris; M19.072 Primary osteoarthritis, left ankle and foot; F01.50 Vascular dementia, unspecified severity, without behavioral disturbance, psychotic disturbance, mood disturbance, and anxiety; D45 Polycythemia vera; I12.9 Hypertensive chronic kidney disease with stage 1 through stage 4 chronic kidney disease, or unspecified chronic kidney disease; N18.9 Chronic kidney disease, unspecified; E55.9 Vitamin D deficiency, unspecified; M81.0 Age-related osteoporosis without current pathological fracture
CPT/HCPCS: 36415; 51702; 70450; 71045; 73502; 73630; 73700; 73718; 73721; 76376; 80048; 80053; 81001; 82306; 82550; 83735; 83874; 84100; 84484; 85007; 85027; 87040; 87086; 93005; 93306; 96360; 97110; 97163; 97165; 97530; 97535; 99285; J0690; J1100; J1938; J2543

== ENCOUNTER 2025-08-09 11:10 | Outpatient (RCR) | payer MEDICARE, SELFPAY ==
[2025-08-09 11:57] LABS: Hematocrit 61.7 % (42.0-54.0); Hemoglobin 17.5 g/dL (14.0-18.0); Mean Corpuscular HGB Conc 28.4 g/dL (29.9-35.2); Mean Corpuscular Hemoglobin 21.1 pg (25.9-34.0); Mean Corpuscular Volume 74.4 fL (80.0-94.0); Platelet Count 734 10^3/uL (150-450); Red Blood Count 8.29 10^6/uL (4.70-6.10); White Blood Count 21.1 10^3/uL (4.0-11.0)
[2025-08-09 12:13] LABS: Segmented Neut Absolute Manual 17.30 10^3/uL (1.4-6.5); Segmented Neutrophils % Manual 82.0 (43.0-75.0)
[2025-08-09 12:14] LABS: Basophils Abs Manual 0.00 10^3/uL (0.00-0.10); Basophils Percent Manual 0.0 % (0.2-2.0); Eosinophils Absolute Manual 0.84 10^3/uL (0.00-0.70); Eosinophils Percent Manual 4.0 % (0.9-7.0); Lymphocytes Absolute Manual 1.47 10^3/uL (1.20-3.80); Lymphocytes Percent Manual 7.0 % (20.5-60.0); Monocytes Absolute Manual 1.47 10^3/uL (0.30-0.80); Monocytes Percent Manual 7.0 % (1.7-12.0)
[2025-08-09 12:28] LABS: Alanine Aminotransferase 16 U/L (16-63); Albumin Globulin Ratio 0.9; Albumin Level 3.3 g/dL (3.4-5.0); Alkaline Phosphatase 105 U/L (46-116); Anion Gap 17.8; Aspartate Amino Transferase 21 U/L (15-37); Blood Urea Nitrogen 47.0 mg/dL (7.0-18.0); Calcium 9.6 mg/dL (8.5-10.1); Carbon Dioxide 25.9 mmol/L (21.0-32.0); Chloride 95 mmol/L (98-107); Estimated GFR (African America >60 (>=60 mL/min/1.73m^2); Estimated GFR (Non-African Ame 51 (>=60 mL/min/1.73m^2); Globulin 3.6 g/dL; Glucose 94 mg/dL (74-106); Potassium 4.7 mmol/L (3.5-5.1); Sodium 134 mmol/L (136-145); Total Protein 6.9 g/dL (6.4-8.2); Uric Acid 14.2 mg/dL (3.5-7.2)
[2025-08-09 12:36] LABS: Iron 27.0 ug/dL (65.0-175.0); Percent Iron Saturation 9.0 %; Total Iron Binding Capacity 299.0 ug/dL (250.0-450.0)
[2025-08-09 12:49] LABS: Ferritin 29.0 ng/mL (26.0-388.0)
== END 2025-09-02 23:59 | disposition home or self-care (01) ==
LOC: HEMC 11:10
PROVIDERS: PCP Nurse Practitioner Family; Visit Provider Internal Medicine Hematology & Oncology
DX: D45 Polycythemia vera (principal); D50.9 Iron deficiency anemia, unspecified; K90.9 Intestinal malabsorption, unspecified; D47.3 Essential (hemorrhagic) thrombocythemia; D75.839 Thrombocytosis, unspecified; D72.829 Elevated white blood cell count, unspecified; R97.20 Elevated prostate specific antigen [PSA]; Z87.891 Personal history of nicotine dependence; Z79.82 Long term (current) use of aspirin; Z79.01 Long term (current) use of anticoagulants
CPT/HCPCS: 36415; 80053; 82728; 83540; 83550; 83615; 84550; 85007; 85027; 85652; 86140; G0463

== ENCOUNTER 2025-11-01 08:43 | Outpatient (RCR) | payer MEDICARE, SELFPAY ==
[2025-11-01 09:12] LABS: Hematocrit 59.3 % (42.0-54.0); Hemoglobin 16.8 g/dL (14.0-18.0); Mean Corpuscular HGB Conc 28.3 g/dL (29.9-35.2); Mean Corpuscular Hemoglobin 24.6 pg (25.9-34.0); Mean Corpuscular Volume 86.7 fL (80.0-94.0); Platelet Count 535 10^3/uL (150-450); Red Blood Count 6.84 10^6/uL (4.70-6.10); White Blood Count 25.6 10^3/uL (4.0-11.0)
[2025-11-01 09:38] LABS: Alanine Aminotransferase 11 U/L (16-63); Albumin Globulin Ratio 0.9; Albumin Level 3.1 g/dL (3.4-5.0); Alkaline Phosphatase 101 U/L (46-116); Anion Gap 15.7; Aspartate Amino Transferase 13 U/L (15-37); Band Neutrophils Absolute 0.0 10^3/uL (0.0-0.3); Basophils Abs Manual 0.25 10^3/uL (0.00-0.10); Basophils Percent Manual 1.0 % (0.2-2.0); Blood Urea Nitrogen 28.0 mg/dL (7.0-18.0); Calcium 9.2 mg/dL (8.5-10.1); Carbon Dioxide 25.5 mmol/L (21.0-32.0); Chloride 101 mmol/L (98-107); Eosinophils Absolute Manual 0.51 10^3/uL (0.00-0.70); Eosinophils Percent Manual 2.0 % (0.9-7.0); Estimated GFR (African America 55 (>=60 mL/min/1.73m^2); Estimated GFR (Non-African Ame 45 (>=60 mL/min/1.73m^2); Globulin 3.4 g/dL; Glucose 120 mg/dL (74-106); Lymphocytes Absolute Manual 0.25 10^3/uL (1.20-3.80); Lymphocytes Percent Manual 1.0 % (20.5-60.0); Monocytes Absolute Manual 1.79 10^3/uL (0.30-0.80); Monocytes Percent Manual 7.0 % (1.7-12.0); Potassium 4.2 mmol/L (3.5-5.1); Segmented Neut Absolute Manual 22.78 10^3/uL (1.4-6.5); Segmented Neutrophils % Manual 89.0 (43.0-75.0); Sodium 138 mmol/L (136-145); Total Protein 6.5 g/dL (6.4-8.2)
[2025-11-01 09:39] LABS: Anisocytosis 2+
[2025-11-01 09:41] LABS: Iron 22.0 ug/dL (65.0-175.0); Percent Iron Saturation 7.8 %; Total Iron Binding Capacity 282.0 ug/dL (250.0-450.0)
[2025-11-01 10:04] LABS: Ferritin 37.0 ng/mL (26.0-388.0)
== END 2025-11-02 23:59 | disposition home or self-care (01) ==
LOC: HEMC 08:43
PROVIDERS: PCP Nurse Practitioner Family; Visit Provider Internal Medicine Hematology & Oncology
DX: D50.9 Iron deficiency anemia, unspecified (principal); K90.9 Intestinal malabsorption, unspecified; D45 Polycythemia vera; D47.3 Essential (hemorrhagic) thrombocythemia; D75.839 Thrombocytosis, unspecified; D72.829 Elevated white blood cell count, unspecified; R97.20 Elevated prostate specific antigen [PSA]
CPT/HCPCS: 36415; 80053; 82728; 83540; 83550; 83615; 85007; 85027; G0463